=== PATIENT | female | born 1970 | race Caucasian/White ===

== ENCOUNTER 2020-03-19 08:14 | Outpatient (REF) | payer OTHER, SELFPAY | END 2020-03-19 08:15 | disposition home or self-care (01) | LOC: HO.LAB 08:14 | PROVIDERS: PCP Internal Medicine; Visit Provider Internal Medicine | DX: Z20.828 Contact with and (suspected) exposure to other viral communicable diseases (principal) | CPT/HCPCS: 87635 ==

== ENCOUNTER 2020-04-24 10:57 | Emergency (ER) | payer OTHER, SELFPAY ==
[2020-04-24 11:57] VITALS: BP 118/83; PULSE 88; RESP 18; TEMP 37.1; O2SAT 99; BMI 25.7
--- NOTE | 2020-04-24 12:00 | ECG_ITS ---
Test Reason : SOB Blood Pressure : / mmHG Vent. Rate : 085 BPM Atrial Rate : 085 BPM P-R Int : 122 ms QRS Dur : 078 ms QT Int : 406 ms P-R-T Axes : 030 -05 000 degrees QTc Int : 483 ms Normal sinus rhythm Prolonged QT Abnormal ECG When compared with ECG of 20-MAR-2017 18:57, QT has lengthened Referred By: Chio Wilcox Electronically Signed By:GOYO TO MD
--- NOTE | 2020-04-24 12:01 | XR_ITS ---
EXAMINATION: XR CHEST CLINICAL INFORMATION: SOB. COMPARISON: None TECHNIQUE: Frontal view of the chest was obtained. FINDINGS: The lungs are well-expanded with patchy density right lung base. Rest of lungs are clear. Heart size and pulmonary vascular is normal. No gross bony abnormality seen XR/XR chest 1V IMPRESSION: Patchy density right lung base question developing infiltrate.
[2020-04-24 13:25] LABS: MANUAL DIFF FLAG NO
[2020-04-24 13:28] LABS: Hematocrit 41.9 % (37-47); Hemoglobin 14.1 g/dl (12.0-16.0); Imm Gran Abs Auto 0.01 X10*3/uL (0.00-0.03); Imm Gran Pct Auto 0.3 % (0.0-0.4); Lymphocytes Absolute Auto 1.4 X10*3/uL (1.2-4.9); Lymphocytes Percent Auto 40.4 % (20-40); Mean Corpuscular HGB Conc 33.7 g/dl (31.0-35.0); Mean Corpuscular Hemoglobin 29.4 pg (27.0-33.0); Mean Corpuscular Volume 87.3 fL (80-98); Mean Platelet Volume 11.2 fL (9.4-12.3); Monocytes Absolute Auto 0.3 X10*3/uL (0.1-1.2); Monocytes Percent Auto 8.2 % (2-11); Neutrophils Absolute Auto 1.8 X10*3/uL (2.0-8.3); Neutrophils Percent Auto 51.1 % (45-73); Platelet Count 162 X10*3/uL (160-400); Red Cell Distribution Width 12.5 % (11.0-16.0); White Blood Count 3.4 X10*3/uL (4.8-10.8)
[2020-04-24 13:47] LABS: Lactate Dehydrogenase 192 U/L (122-220)
[2020-04-24 13:50] LABS: Alanine Aminotransferase 43 U/L (0-31); Albumin Level 4.5 g/dL (3.5-5.0); Alkaline Phosphatase 54 U/L (39-117); Anion Gap 13 (12-20); Aspartate Amino Transferase 35 U/L (5-31); Bilirubin Direct < 0.2 mg/dL (0.0-0.5); Bilirubin Total 0.4 mg/dL (0.0-1.0); Blood Urea Nitrogen 6 mg/dL (9-16); Calcium 8.5 mg/dL (8.4-10.2); Carbon Dioxide 21 mmol/L (22-29); Chloride 108 mmol/L (96-108); Creatinine Clr Calc Pharmacy 71.9; Estimated Glomerular Filt Rate > 60; Glucose Random 72 mg/dL (60-115); Potassium 3.4 mmol/l (3.3-5.1); Sodium 139 mmol/L (135-145); Total Protein 7.1 g/dL (6.5-8.0)
[2020-04-24 13:54] LABS: B Type Natriuretic Peptide < 10 pg/mL (<100); Troponin-I High Sensitivity < 3.5 ng/L (<3.5-17.0)
[2020-04-24 14:08] LABS: Procalcitonin 0.02 ng/mL
[2020-04-24 14:11] LABS: Ferritin 221 ng/mL (10-250)
[2020-04-24 14:14] LABS: Lactic Acid 1.1 mmol/L (0.5-2.0)
[2020-04-24 14:53] LABS: Glucose Urine UA NEG (NEG); Leukocyte Esterase Urine NEG (NEG); Nitrite Urine NEG (NEG); PH 6.5 (5.0-8.0); Urine Blood NEG (NEG); Urine Ketones >=80 MG/DL (NEG); Urine Protein TRACE MG/DL (NEG-TRACE)
[2020-04-24 14:54] LABS: Appearance Urine HAZY; Color Urine YELLOW
--- NOTE | 2020-04-24 14:58 | ED.GENADULT ---
HPI - General Adult General Chief complaint: General Medical <JOE Scott - Last Filed: 04/24/20 15:09> Stated complaint: COVID SYMPTOMS <JOE Scott - Last Filed: 04/24/20 15:09> Time Seen by Provider: 04/24/20 12:00 <JOE Scott - Last Filed: 04/24/20 15:09> Source: patient <JOE Scott - Last Filed: 04/24/20 15:09> Mode of arrival: ambulatory <JOE Scott - Last Filed: 04/24/20 15:09> History of Present Illness HPI narrative: 50-year-old female with a past medical history of anxiety, depression, asthma, GERD, hyperlipidemia, hypertension, insomnia, COVID-19 positive on Monday, presenting to ED complaining of worsening SOB, generalized fatigue/weakness, myalgias, lightheadedness, and headache. Reports subjective fever and chills. Denies chest pain, new or worsening cough, abdominal pain, diarrhea, recent travel, LE edema, sick contacts <JOE Scott - Last Filed: 04/24/20 15:09> Onset (ago): day(s) <JOE Scott - Last Filed: 04/24/20 15:09> Related Data Home medications: Home Medications Medication Instructions Recorded Confirmed baclofen 10 mg tablet 10 mg PO TID 04/09/20 04/09/20 bupropion HCl 150 mg 24 hr tablet, 150 mg PO QAM 04/09/20 04/09/20 extended release fluticasone 250 mcg-salmeterol 50 1 inh INHALATION BID ea 04/09/20 04/09/20 mcg/dose blistr powdr for inhalation meloxicam 15 mg tablet 15 mg PO DAILY 04/09/20 04/09/20 montelukast 10 mg tablet 10 mg PO DAILY 04/09/20 04/09/20 Previous Rx's Medication Instructions Recorded lisinopril 5 mg tablet 5 mg PO DAILY #30 tab 03/27/20 bupropion HCl 75 mg tablet 75 mg PO DAILY #30 tab 04/09/20 escitalopram oxalate 10 mg tablet 10 mg PO DAILY #30 tab 04/09/20 doxycycline monohydrate 100 mg PO BID 7 Days #14 cap 04/24/20 promethazine 25 mg tablet 25 mg PO Q12H PRN #60 tab 04/28/20 albuterol sulfate 90 mcg/actuation 2 puff INHALATION Q4-6H PRN 30 05/07/20 aerosol inhaler Days #8.5 g diphenhydramine HCl 50 mg capsule 50 mg PO BEDTIME PRN #30 cap 05/13/20 zolpidem 10 mg tablet 10 mg PO BEDTIME PRN 30 Days #30 05/13/20 tab famotidine 20 mg tablet 20 mg PO BID #60 tab 05/14/20 hydrocodone 5 mg-acetaminophen 325 1 tab PO TID PRN 30 Days #60 tab 05/14/20 mg tablet <JOE Scott Last Filed: 04/24/20 15:09> Allergies/adverse reactions: Allergies Allergy/AdvReac Type Severity Reaction Status Date / Time animal dander [ANIMAL HAIR] Allergy Intermediate ASTHMA, Unverified 04/09/20 10:49 HIVES lactose [Lactose] Allergy Mild DIARRHEA Unverified 04/09/20 10:49 <JOE Scott Last Filed: 04/24/20 15:09> Review of Systems Review of Systems: Constitutional: No Weight loss, +subj Fever, + Chills, + Fatigue, + Malaise ENT/Mouth:No Ear Pain, No Nasal Congestion, No sore throat, No Rhinorrheanges Cardiovascular: No Chest Pain, +SOB, +Dyspnea on Exertion, No Orthopnea, No Edema Respiratory: +chronic Cough, No Sputum, +Dyspnea Gastrointestinal: No Nausea, No Vomiting, No Diarrhea, No Constipation, No Abdominal pain Musculoskeletal: No joint pain, No Myalgias, No Joint Swelling Skin: No Skin Lesions, No rash Neuro: +genrealized weakness, No Numbness,+ lightheadedness, + Headache <JOE Scott Last Filed: 04/24/20 15:09> Yes all other systems are reviewed and are negative <JOE Scott Last Filed: 04/24/20 15:09> [facility] Past Medical History Attestation statement: The following information was validated with the patient. <JOE Scott Last Filed: 04/24/20 15:09> Medical History: Medical History (Updated 05/10/20 @ 17:41 by Carina Delarosa NP) Anxiety and depression ASCUS (atypical squamous cells of undetermined significance) on gynecologic Papanicolaou smear complicating , antepartum Asthma Asthma Cervical radiculopathy Degenerative disc disease, cervical GERD (gastroesophageal reflux disease) Hospital discharge follow-up Hospital discharge follow-up Hypercholesterolemia Hypertension Insomnia Interstitial cystitis Lumbar degenerative disc disease <JOE Scott - Last Filed: 04/24/20 15:09> Surgical History: Surgical History (Updated 04/06/20 @ 13:52 by Yola Garg [facility]) H/O nasal septoplasty History of ankle surgery History of neck surgery History of surgery History of wisdom tooth extraction S/P cervical discectomy Status post laparoscopic surgery <JOE Scott - Last Filed: 04/24/20 15:09> Family History Family History: Family History (Updated 04/09/20 @ 10:58 by Carrie Marshall MD) Father PTSD (post-traumatic stress disorder) Mother No problems noted. Maternal Grandmother Breast cancer Maternal Grandfather Myocardial infarction Maternal Uncle Past heart attack <JOE Scott - Last Filed: 04/24/20 15:09> Social History Social History: Social History (Updated 04/09/20 @ 10:58 by Carrie Marshall MD) Alcohol intake: current Smoking Status: Former smoker <JOE Scott - Last Filed: 04/24/20 15:09> Physical Exam Vital Signs: Vital Signs: Last Vital Signs Temp 98.8 F 04/24/20 11:57 Pulse 88 04/24/20 11:57 Resp 18 04/24/20 11:57 BP 118/83 04/24/20 11:57 Pulse Ox 99 04/24/20 11:57 Body Mass Index 25.7 <JOE Scott - Last Filed: 04/24/20 15:09> Vital Signs: Last Vital Signs Temp 98.8 F 04/24/20 11:57 Pulse 88 04/24/20 11:57 Resp 18 04/24/20 11:57 BP 118/83 04/24/20 11:57 Pulse Ox 99 04/24/20 11:57 Body Mass Index 25.7 <Magnus Mitchell MD - Last Filed: 05/15/20 09:33> Const: General: cooperative and healthy appearing <Chio Brenden [facility] Last Filed: 04/24/20 15:09> Orientation/consciousness: patient oriented x3 <Chio Brenden [facility] Last Filed: 04/24/20 15:09> Limitations: no limitations <Chio Brenden [facility] Last Filed: 04/24/20 15:09> HENMT: Head: Yes normal to inspection <Chio Wilcox [facility] Last Filed: 04/24/20 15:09> Ears: hearing grossly normal bilaterally <Chio Brenden [facility] Last Filed: 04/24/20 15:09> General nose exam: Normal external nose present <Chio Wilcox [place] - Last Filed: 04/24/20 15:09> Face and sinus: Yes normal facial exam <Chio Brenden [facility] Last Filed: 04/24/20 15:09> Eyes: General: appearance normal, both eyes and all related structures <Chio Wilcox [facility] Last Filed: 04/24/20 15:09> EOM: EOMs intact bilaterally <Chio Brenden [facility] Last Filed: 04/24/20 15:09> Neck: Neck: Yes normal visual inspection and Yes no meningeal signs <Chio Brenden [facility] Last Filed: 04/24/20 15:09> Resp: Effort & Inspection: normal respiratory effort <Chio Brenden [facility] Last Filed: 04/24/20 15:09> Auscultation: clear to auscultation bilaterally, no crackles and no wheezes <Chio Wilcox [facility] Last Filed: 04/24/20 15:09> Cardio: Rate: regular rate <Chio Brenden [facility] Last Filed: 04/24/20 15:09> Heart sounds: S1 normal heart sound present and S2 normal heart sound present <Chio Wilcox [facility] Last Filed: 04/24/20 15:09> GI: Inspection: Yes normal to inspection <Chio Wilcox [facility] Last Filed: 04/24/20 15:09> Palpation (GI): Soft to palpation, nontender, no guarding and not rigid <Chio Wilcox [place] - Last Filed: 04/24/20 15:09> Skin: Rashes: no rashes <JOE Scott - Last Filed: 04/24/20 15:09> Wounds: no wounds <JOE Scott - Last Filed: 04/24/20 15:09> Neuro: General: patient oriented x3 and no meningeal signs <JOE Scott - Last Filed: 04/24/20 15:09> Gait exam (Neuro): Normal gait present <JOE Scott - Last Filed: 04/24/20 15:09> Extrem: Other: No LE edema or calf tenderness <JOE Scott - Last Filed: 04/24/20 15:09> General: Yes normal to inspection <JOE Scott - Last Filed: 04/24/20 15:09> Course Course Course Narrative: -1506-leukopenia 3.4, lactic acid 1.1, AST/ALT slightly elevated, troponin and BNP WNL -UA with 80 ketones otherwise negative -CXR showing patchy density right lung base question developing infiltrate > will discharge patient with p.o. antibiotics, does not meet sepsis criteria or require admission at this time <JOE Scott - Last Filed: 04/24/20 15:09> I have reviewed the chart <Magnus Mitchell MD - Last Filed: 05/15/20 09:33> Medical Decision Making [facility] Narrative Medical decision making narrative: 50-year-old female with a past medical history of anxiety, depression, asthma, GERD, hyperlipidemia, hypertension, insomnia, COVID-19 positive on Monday, presenting to ED complaining of worsening SOB, generalized fatigue/weakness, myalgias, lightheadedness, and headache. On exam VSS, NAD/well-appearing, lungs CTA, abdomen soft/nontender, no LE edema. Likely the COVID-19 related symptoms. Rule out viral pneumonia and metabolic abnormalities. Low concern for bacterial infection/ACS or PE Plan: EKG, labs, CXR <JOE Scott - Last Filed: 04/24/20 15:09> Lab Data Result diagrams: : 04/24/20 13:11 04/24/20 13:11 <JOE Scott - Last Filed: 04/24/20 15:09> Labs: Lab Results 1204/24/20 04/24/20 Range/Units 13:11 13:11 13:11 WBC 3.4 L (4.8-10.8) X10*3/uL RBC 4.80 (4.20-5.50) X10*6/uL Hgb 14.1 (12.0-16.0) g/dl Hct 41.9 (37-47) % MCV 87.3 (80-98) fL MCH 29.4 (27.0-33.0) pg MCHC 33.7 (31.0-35.0) g/dl RDW 12.5 (11.0-16.0) % Plt Count 162 (160-400) X10*3/uL MPV 11.2 (9.4-12.3) fL Immature Gran % (Auto) 0.3 (0.0-0.4) % Neut % (Auto) 51.1 (45-73) % Lymph % (Auto) 40.4 H (20-40) % [place] % (Auto) 8.2 (2-11) % Eos % (Auto) 0.0 (0-4) % Baso % (Auto) 0.0 (0-2) % Lymph # (Auto) 1.4 (1.2-4.9) X10*3/uL [place] # (Auto) 0.3 (0.1-1.2) X10*3/uL Eos # (Auto) 0.0 (0.0-0.4) X10*3/uL Baso # (Auto) 0.0 (0.0-0.2) X10*3/uL Abs Immat Gran (auto) 0.01 (0.00-0.03) X10*3/uL Absolute Neuts (auto) 1.8 L (2.0-8.3) X10*3/uL Absolute Nucleated RBC 0.000 (0.0-0.012) X10*3/uL Nucleated RBC % (auto) 0.0 (0.0-0.2) /100WBC Hold Blue Top SEE NOTE Sodium 139 (135-145) mmol/L Potassium 3.4 (3.3-5.1) mmol/l Chloride 108 (96-108) mmol/L Carbon Dioxide 21 L (22-29) mmol/L Anion Gap 13 (12-20) BUN 6 L (9-16) mg/dL Creatinine 0.92 (0.5-1.4) mg/dL Estim Creat Clear Calc 71.9 Estimated GFR > 60 Random Glucose 72 (60-115) mg/dL Lactic Acid (0.5-2.0) mmol/L Calcium 8.5 (8.4-10.2) mg/dL Magnesium 2.0 (1.6-2.6) mg/dL Ferritin (10-250) ng/mL Total Bilirubin 0.4 (0.0-1.0) mg/dL Direct Bilirubin < 0.2 (0.0-0.5) mg/dL AST 35 H (5-31) U/L ALT 43 H (0-31) U/L Alkaline Phosphatase 54 (39-117) U/L Lactate Dehydrogenase (122-220) U/L Troponin I High Sens (<3.5-17.0) ng/L B-Natriuretic Peptide (<100) pg/mL Total Protein 7.1 (6.5-8.0) g/dL Albumin 4.5 (3.5-5.0) g/dL Procalcitonin ng/mL Urine Color Urine Appearance Urine pH (5.0-8.0) Ur Specific [place] (1.005-1.025) Urine Protein (NEG-TRACE) MG/DL Urine Glucose (UA) (NEG) MG/DL Urine Ketones (NEG) MG/DL Urine Blood (NEG) Urine Nitrite (NEG) Ur Leukocyte Esterase (NEG) 04/24/20 04/24/20 04/24/20 Range/Units 13:11 13:11 13:11 WBC (4.8-10.8) X10*3/uL RBC (4.20-5.50) X10*6/uL Hgb (12.0-16.0) g/dl Hct (37-47) % MCV (80-98) fL MCH (27.0-33.0) pg MCHC (31.0-35.0) g/dl RDW (11.0-16.0) % Plt Count (160-400) X10*3/uL MPV (9.4-12.3) fL Immature Gran % (Auto) (0.0-0.4) % Neut % (Auto) (45-73) % Lymph % (Auto) (20-40) % [place] % (Auto) (2-11) % Eos % (Auto) (0-4) % Baso % (Auto) (0-2) % Lymph # (Auto) (1.2-4.9) X10*3/uL [place] # (Auto) (0.1-1.2) X10*3/uL Eos # (Auto) (0.0-0.4) X10*3/uL Baso # (Auto) (0.0-0.2) X10*3/uL Abs Immat Gran (auto) (0.00-0.03) X10*3/uL Absolute Neuts (auto) (2.0-8.3) X10*3/uL Absolute Nucleated RBC (0.0-0.012) X10*3/uL Nucleated RBC % (auto) (0.0-0.2) /100WBC Hold Blue Top Sodium (135-145) mmol/L Potassium (3.3-5.1) mmol/l Chloride (96-108) mmol/L Carbon Dioxide (22-29) mmol/L Anion Gap (12-20) BUN (9-16) mg/dL Creatinine (0.5-1.4) mg/dL Estim Creat Clear Calc Estimated GFR Random Glucose (60-115) mg/dL Lactic Acid (0.5-2.0) mmol/L Calcium (8.4-10.2) mg/dL Magnesium (1.6-2.6) mg/dL Ferritin 221 (10-250) ng/mL Total Bilirubin (0.0-1.0) mg/dL Direct Bilirubin (0.0-0.5) mg/dL AST (5-31) U/L ALT (0-31) U/L Alkaline Phosphatase (39-117) U/L Lactate Dehydrogenase 192 (122-220) U/L Troponin I High Sens < 3.5 (<3.5-17.0) ng/L B-Natriuretic Peptide < 10 (<100) pg/mL Total Protein (6.5-8.0) g/dL Albumin (3.5-5.0) g/dL Procalcitonin 0.02 ng/mL Urine Color Urine Appearance Urine pH (5.0-8.0) Ur Specific [place] (1.005-1.025) Urine Protein (NEG-TRACE) MG/DL Urine Glucose (UA) (NEG) MG/DL Urine Ketones (NEG) MG/DL Urine Blood (NEG) Urine Nitrite (NEG) Ur Leukocyte Esterase (NEG) 04/24/20 04/24/20 Range/Units 13:23 14:39 WBC (4.8-10.8) X10*3/uL RBC (4.20-5.50) X10*6/uL Hgb (12.0-16.0) g/dl Hct (37-47) % MCV (80-98) fL MCH (27.0-33.0) pg MCHC (31.0-35.0) g/dl RDW (11.0-16.0) % Plt Count (160-400) X10*3/uL MPV (9.4-12.3) fL Immature Gran % (Auto) (0.0-0.4) % Neut % (Auto) (45-73) % Lymph % (Auto) (20-40) % [place] % (Auto) (2-11) % Eos % (Auto) (0-4) % Baso % (Auto) (0-2) % Lymph # (Auto) (1.2-4.9) X10*3/uL [place] # (Auto) (0.1-1.2) X10*3/uL Eos # (Auto) (0.0-0.4) X10*3/uL Baso # (Auto) (0.0-0.2) X10*3/uL Abs Immat Gran (auto) (0.00-0.03) X10*3/uL Absolute Neuts (auto) (2.0-8.3) X10*3/uL Absolute Nucleated RBC (0.0-0.012) X10*3/uL Nucleated RBC % (auto) (0.0-0.2) /100WBC Hold Blue Top Sodium (135-145) mmol/L Potassium (3.3-5.1) mmol/l Chloride (96-108) mmol/L Carbon Dioxide (22-29) mmol/L Anion Gap (12-20) BUN (9-16) mg/dL Creatinine (0.5-1.4) mg/dL Estim Creat Clear Calc Estimated GFR Random Glucose (60-115) mg/dL Lactic Acid 1.1 (0.5-2.0) mmol/L Calcium (8.4-10.2) mg/dL Magnesium (1.6-2.6) mg/dL Ferritin (10-250) ng/mL Total Bilirubin (0.0-1.0) mg/dL Direct Bilirubin (0.0-0.5) mg/dL AST (5-31) U/L ALT (0-31) U/L Alkaline Phosphatase (39-117) U/L Lactate Dehydrogenase (122-220) U/L Troponin I High Sens (<3.5-17.0) ng/L B-Natriuretic Peptide (<100) pg/mL Total Protein (6.5-8.0) g/dL Albumin (3.5-5.0) g/dL Procalcitonin ng/mL Urine Color YELLOW Urine Appearance HAZY Urine pH 6.5 (5.0-8.0) Ur Specific [place] 1.020 (1.005-1.025) Urine Protein TRACE (NEG-TRACE) MG/DL Urine Glucose (UA) NEG (NEG) MG/DL Urine Ketones >=80 (NEG) MG/DL Urine Blood NEG (NEG) Urine Nitrite NEG (NEG) Ur Leukocyte Esterase NEG (NEG) <JOE Scott - Last Filed: 04/24/20 15:09> Lab Results 04/24/20 04/24/20 04/24/20 Range/Units 13:11 13:11 13:11 WBC 3.4 L (4.8-10.8) X10*3/uL RBC 4.80 (4.20-5.50) X10*6/uL Hgb 14.1 (12.0-16.0) g/dl Hct 41.9 (37-47) % MCV 87.3 (80-98) fL MCH 29.4 (27.0-33.0) pg MCHC 33.7 (31.0-35.0) g/dl RDW 12.5 (11.0-16.0) % Plt Count 162 (160-400) X10*3/uL MPV 11.2 (9.4-12.3) fL Immature Gran % (Auto) 0.3 (0.0-0.4) % Neut % (Auto) 51.1 (45-73) % Lymph % (Auto) 40.4 H (20-40) % [place] % (Auto) 8.2 (2-11) % Eos % (Auto) 0.0 (0-4) % Baso % (Auto) 0.0 (0-2) % Lymph # (Auto) 1.4 (1.2-4.9) X10*3/uL [place] # (Auto) 0.3 (0.1-1.2) X10*3/uL Eos # (Auto) 0.0 (0.0-0.4) X10*3/uL Baso # (Auto) 0.0 (0.0-0.2) X10*3/uL Abs Immat Gran (auto) 0.01 (0.00-0.03) X10*3/uL Absolute Neuts (auto) 1.8 L (2.0-8.3) X10*3/uL Absolute Nucleated RBC 0.000 (0.0-0.012) X10*3/uL Nucleated RBC % (auto) 0.0 (0.0-0.2) /100WBC Hold Blue Top SEE NOTE Sodium 139 (135-145) mmol/L Potassium 3.4 (3.3-5.1) mmol/l Chloride 108 (96-108) mmol/L Carbon Dioxide 21 L (22-29) mmol/L Anion Gap 13 (12-20) BUN 6 L (9-16) mg/dL Creatinine 0.92 (0.5-1.4) mg/dL Estim Creat Clear Calc 71.9 Estimated GFR > 60 Random Glucose 72 (60-115) mg/dL Lactic Acid (0.5-2.0) mmol/L Calcium 8.5 (8.4-10.2) mg/dL Magnesium 2.0 (1.6-2.6) mg/dL Ferritin (10-250) ng/mL Total Bilirubin 0.4 (0.0-1.0) mg/dL Direct Bilirubin < 0.2 (0.0-0.5) mg/dL AST 35 H (5-31) U/L ALT 43 H (0-31) U/L Alkaline Phosphatase 54 (39-117) U/L Lactate Dehydrogenase (122-220) U/L Troponin I High Sens (<3.5-17.0) ng/L B-Natriuretic Peptide (<100) pg/mL Total Protein 7.1 (6.5-8.0) g/dL Albumin 4.5 (3.5-5.0) g/dL Procalcitonin ng/mL Urine Color Urine Appearance Urine pH (5.0-8.0) Ur Specific [place] (1.005-1.025) Urine Protein (NEG-TRACE) MG/DL Urine Glucose (UA) (NEG) MG/DL Urine Ketones (NEG) MG/DL Urine Blood (NEG) Urine Nitrite (NEG) Ur Leukocyte Esterase (NEG) 04/24/20 04/24/20 04/24/20 Range/Units 13:11 13:11 13:11 WBC (4.8-10.8) X10*3/uL RBC (4.20-5.50) X10*6/uL Hgb (12.0-16.0) g/dl Hct (37-47) % MCV (80-98) fL MCH (27.0-33.0) pg MCHC (31.0-35.0) g/dl RDW (11.0-16.0) % Plt Count (160-400) X10*3/uL MPV (9.4-12.3) fL Immature Gran % (Auto) (0.0-0.4) % Neut % (Auto) (45-73) % Lymph % (Auto) (20-40) % [place] % (Auto) (2-11) % Eos % (Auto) (0-4) % Baso % (Auto) (0-2) % Lymph # (Auto) (1.2-4.9) X10*3/uL [place] # (Auto) (0.1-1.2) X10*3/uL Eos # (Auto) (0.0-0.4) X10*3/uL Baso # (Auto) (0.0-0.2) X10*3/uL Abs Immat Gran (auto) (0.00-0.03) X10*3/uL Absolute Neuts (auto) (2.0-8.3) X10*3/uL Absolute Nucleated RBC (0.0-0.012) X10*3/uL Nucleated RBC % (auto) (0.0-0.2) /100WBC Hold Blue Top Sodium (135-145) mmol/L Potassium (3.3-5.1) mmol/l Chloride (96-108) mmol/L Carbon Dioxide (22-29) mmol/L Anion Gap (12-20) BUN (9-16) mg/dL Creatinine (0.5-1.4) mg/dL Estim Creat Clear Calc Estimated GFR Random Glucose (60-115) mg/dL Lactic Acid (0.5-2.0) mmol/L Calcium (8.4-10.2) mg/dL Magnesium (1.6-2.6) mg/dL Ferritin 221 (10-250) ng/mL Total Bilirubin (0.0-1.0) mg/dL Direct Bilirubin (0.0-0.5) mg/dL AST (5-31) U/L ALT (0-31) U/L Alkaline Phosphatase (39-117) U/L Lactate Dehydrogenase 192 (122-220) U/L Troponin I High Sens < 3.5 (<3.5-17.0) ng/L B-Natriuretic Peptide < 10 (<100) pg/mL Total Protein (6.5-8.0) g/dL Albumin (3.5-5.0) g/dL Procalcitonin 0.02 ng/mL Urine Color Urine Appearance Urine pH (5.0-8.0) Ur Specific [place] (1.005-1.025) Urine Protein (NEG-TRACE) MG/DL Urine Glucose (UA) (NEG) MG/DL Urine Ketones (NEG) MG/DL Urine Blood (NEG) Urine Nitrite (NEG) Ur Leukocyte Esterase (NEG) 04/24/20 04/24/20 Range/Units 13:23 14:39 WBC (4.8-10.8) X10*3/uL RBC (4.20-5.50) X10*6/uL Hgb (12.0-16.0) g/dl Hct (37-47) % MCV (80-98) fL MCH (27.0-33.0) pg MCHC (31.0-35.0) g/dl RDW (11.0-16.0) % Plt Count (160-400) X10*3/uL MPV (9.4-12.3) fL Immature Gran % (Auto) (0.0-0.4) % Neut % (Auto) (45-73) % Lymph % (Auto) (20-40) % [place] % (Auto) (2-11) % Eos % (Auto) (0-4) % Baso % (Auto) (0-2) % Lymph # (Auto) (1.2-4.9) X10*3/uL [place] # (Auto) (0.1-1.2) X10*3/uL Eos # (Auto) (0.0-0.4) X10*3/uL Baso # (Auto) (0.0-0.2) X10*3/uL Abs Immat Gran (auto) (0.00-0.03) X10*3/uL Absolute Neuts (auto) (2.0-8.3) X10*3/uL Absolute Nucleated RBC (0.0-0.012) X10*3/uL Nucleated RBC % (auto) (0.0-0.2) /100WBC Hold Blue Top Sodium (135-145) mmol/L Potassium (3.3-5.1) mmol/l Chloride (96-108) mmol/L Carbon Dioxide (22-29) mmol/L Anion Gap (12-20) BUN (9-16) mg/dL Creatinine (0.5-1.4) mg/dL Estim Creat Clear Calc Estimated GFR Random Glucose (60-115) mg/dL Lactic Acid 1.1 (0.5-2.0) mmol/L Calcium (8.4-10.2) mg/dL Magnesium (1.6-2.6) mg/dL Ferritin (10-250) ng/mL Total Bilirubin (0.0-1.0) mg/dL Direct Bilirubin (0.0-0.5) mg/dL AST (5-31) U/L ALT (0-31) U/L Alkaline Phosphatase (39-117) U/L Lactate Dehydrogenase (122-220) U/L Troponin I High Sens (<3.5-17.0) ng/L B-Natriuretic Peptide (<100) pg/mL Total Protein (6.5-8.0) g/dL Albumin (3.5-5.0) g/dL Procalcitonin ng/mL Urine Color YELLOW Urine Appearance HAZY Urine pH 6.5 (5.0-8.0) Ur Specific [place] 1.020 (1.005-1.025) Urine Protein TRACE (NEG-TRACE) MG/DL Urine Glucose (UA) NEG (NEG) MG/DL Urine Ketones >=80 (NEG) MG/DL Urine Blood NEG (NEG) Urine Nitrite NEG (NEG) Ur Leukocyte Esterase NEG (NEG) <Magnus Mitchell MD - Last Filed: 05/15/20 09:33> Discharge Plan Discharge Clinical Impression: Pneumonia due to COVID-19 virus <JOE Scott - Last Filed: 04/24/20 15:09> Patient Disposition: Home, Self-Care <JOE Scott - Last Filed: 04/24/20 15:09> Instructions: Viral Pneumonia (ED) <JOE Scott - Last Filed: 04/24/20 15:09> Additional Instructions: Your blood work was reassuring Today in the ED Your x-ray showed beginning viral pneumonia in your right lower lobe Doxycycline as antibiotic, take as prescribed Continue using her rescue inhaler at home and neb machine Call your doctor for follow-up If her symptoms persist or worsen, you develop constant worsening shortness of breath, chest pain for fever unresolved medications return to the ED CDC Guidelines for home isolation: - Stay away from others - WEAR A MASK if you are sick AND STAY HOME - Cover your mouth and nose with a tissue when you cough or sneeze. Dispose of tissues in a lined trash can and wash your hands immediately with soap and water for at least 20 seconds. If soap and water are not available, clean hands with alcohol-based hand insurance coordinator that contains at least 60% alcohol. - Clean your hands often with soap and water for at least 20 seconds - Avoid touching your eyes, nose and mouth with unwashed hands - Do not share dishes, drinking glasses, cups, eating utensils, towels, or bedding with other people in your home. After using these items, wash them thoroughly with soap and water or put in the oncology account specialist. - Clean high-touch surfaces in your isolation area ( sick room and bathroom) every day; let a caregiver clean and disinfect high-touch surfaces in other areas of the home. Clean the area or item with soap and water or another detergent if it is dirty. Then, use a household disinfectant. - Limit contact with pets and animals: If you must care for a pet, wash your hands before and after interacting with them) <JOE Scott - Last Filed: 04/24/20 15:09> Prescriptions: New doxycycline monohydrate 100 mg capsule 100 mg PO BID 7 Days Qty: 14 RF: 0 No Action lisinopril 5 mg tablet 5 mg PO DAILY Qty: 30 RF: 5 promethazine 25 mg tablet 25 mg PO Q12H PRN (Reason: nausea and vomiting) Qty: 60 RF: 2 zolpidem 10 mg tablet 10 mg PO BEDTIME PRN (Reason: insomnia) 30 Days Qty: 30 RF: 2 diphenhydramine HCl [Banophen] 50 mg capsule 50 mg PO BEDTIME PRN (Reason: allergy symptoms) Qty: 30 RF: 5 hydrocodone-acetaminophen 5-325 mg tablet 1 tab PO TID PRN (Reason: pain) 30 Days Qty: 60 RF: 0 famotidine 20 mg tablet 20 mg PO BID Qty: 60 RF: 3 albuterol sulfate [ProAir HFA] 90 mcg/actuation HFA aerosol inhaler 2 puff inhalation Q4-6H PRN (Reason: shortness of breath or wheezing) 30 Days Qty: 8.5 RF: 0 baclofen 10 mg tablet 10 mg PO TID RF: 0 meloxicam 15 mg tablet 15 mg PO DAILY RF: 0 fluticasone propion-salmeterol [Wixela Inhub] 250-50 mcg/dose blister with device 1 inh inhalation BID RF: 0 montelukast 10 mg tablet 10 mg PO DAILY RF: 0 bupropion HCl 150 mg tablet extended release 24 hr 150 mg PO QAM RF: 0 bupropion HCl 75 mg tablet 75 mg PO DAILY Qty: 30 RF: 2 escitalopram oxalate [Lexapro] 10 mg tablet 10 mg PO DAILY Qty: 30 RF: 2 <JOE Scott - Last Filed: 04/24/20 15:09> Referrals: Po,Carrie Conner MD [Primary Care Provider] - 3 days <JOE Scott - Last Filed: 04/24/20 15:09> Interventions: ED Discharge Assessment Last Done: 04/24/20 15:54 <JOE Scott - Last Filed: 04/24/20 15:09> Discharge Date/Time: 04/24/20 15:55 <JOE Scott - Last Filed: 04/24/20 15:09>
== END 2020-04-24 15:55 | disposition home or self-care (01) ==
PROVIDERS: Physician Assistant; Emergency Provider Emergency Medicine; PCP Internal Medicine
DX: M79.10 Myalgia, unspecified site (principal); R51.9 Headache, unspecified; R50.9 Fever, unspecified; I10 Essential (primary) hypertension; F41.9 Anxiety disorder, unspecified; Z20.828 Contact with and (suspected) exposure to other viral communicable diseases; Z79.899 Other long term (current) drug therapy
CPT/HCPCS: 36415; 71045; 80048; 80076; 81003; 82728; 83605; 83615; 83735; 83880; 84145; 84484; 85025; 87040; 93005; 99283

== ENCOUNTER 2020-06-09 08:11 | Outpatient (REF) | payer OTHER, SELFPAY ==
[2020-06-09 09:08] LABS: MANUAL DIFF FLAG NO
[2020-06-09 09:16] LABS: Basophils Percent Auto 0.5 % (0-2); Eosinophils Absolute Auto 0.2 X10*3/uL (0.0-0.4); Eosinophils Percent Auto 2.4 % (0-4); Hematocrit 37.1 % (37-47); Imm Gran Abs Auto 0.01 X10*3/uL (0.00-0.03); Imm Gran Pct Auto 0.2 % (0.0-0.4); Lymphocytes Absolute Auto 2.4 X10*3/uL (1.2-4.9); Lymphocytes Percent Auto 38.7 % (20-40); Mean Corpuscular HGB Conc 32.3 g/dl (31.0-35.0); Mean Corpuscular Hemoglobin 28.5 pg (27.0-33.0); Mean Corpuscular Volume 88.1 fL (80-98); Mean Platelet Volume 11.9 fL (9.4-12.3); Monocytes Absolute Auto 0.5 X10*3/uL (0.1-1.2); Monocytes Percent Auto 8.1 % (2-11); Neutrophils Absolute Auto 3.1 X10*3/uL (2.0-8.3); Neutrophils Percent Auto 50.1 % (45-73); Platelet Count 248 X10*3/uL (160-400); Red Blood Count 4.21 X10*6/uL (4.20-5.50); Red Cell Distribution Width 13.4 % (11.0-16.0); White Blood Count 6.3 X10*3/uL (4.8-10.8)
[2020-06-09 09:42] LABS: Alanine Aminotransferase 50 U/L (0-31); Albumin Level 4.4 g/dL (3.5-5.0); Alkaline Phosphatase 50 U/L (39-117); Anion Gap 12 (12-20); Aspartate Amino Transferase 25 U/L (5-31); Bilirubin Total 0.2 mg/dL (0.0-1.0); Blood Urea Nitrogen 10 mg/dL (9-16); Calcium 8.8 mg/dL (8.4-10.2); Carbon Dioxide 22 mmol/L (22-29); Chloride 111 mmol/L (96-108); Cholesterol 186 mg/dL; Estimated Glomerular Filt Rate > 60; Glucose Random 85 mg/dL (60-115); HDL Cholesterol 54 mg/dL; LDL Cholesterol Calculated 124 mg/dl; Potassium 3.9 mmol/l (3.3-5.1); Sodium 141 mmol/L (135-145); Total Protein 6.5 g/dL (6.5-8.0); Triglycerides 44 mg/dL
[2020-06-09 10:03] LABS: Free T4 (Free Thyroxine) 0.81 ng/dL (0.71-1.85); Thyroid Stimulating Hormone 2.52 uIU/mL (0.32-4.0)
[2020-06-09 10:21] LABS: Folate 10.8 ng/mL (> or = 4.0); Vitamin B12 529 pg/mL (200-900)
[2020-06-14 13:57] LABS: Vitamin D 25-OH, D2 <4 ng/mL; Vitamin D 25-OH, D3 42 ng/mL; Vitamin D 25-OH, Total 42 ng/mL (30-100)
== END 2020-06-09 08:12 | disposition home or self-care (01) ==
LOC: HO.LAB 08:11
PROVIDERS: Visit Provider Internal Medicine
DX: E78.00 Pure hypercholesterolemia, unspecified (principal); I10 Essential (primary) hypertension; J45.909 Unspecified asthma, uncomplicated; Z79.899 Other long term (current) drug therapy
CPT/HCPCS: 36415; 80053; 80061; 82306; 82607; 82746; 84439; 84443; 85025

== ENCOUNTER 2020-07-01 08:18 | Outpatient (REF) | payer OTHER, SELFPAY ==
--- NOTE | ~2020-07-01 | MM_ITS ---
EXAMINATION: MM SCREENING DIGITAL BREAST TOMOSYNTHESIS, BILATERAL CLINICAL INFORMATION: Screening. Asymptomatic. The lifetime risk of breast cancer based on the Tyrer-Cuzick Model is 13.6%. COMPARISON: Mammography: April 04, 2018 and studies dating back to February 10, 2010 TECHNIQUE: Digital breast tomosynthesis is performed in both the craniocaudal and mediolateral oblique views along with computer-aided detection (CAD). Synthesized 2D images are generated from the tomosynthesis. Bilateral exaggerated craniocaudal views also performed. FINDINGS: The breasts are heterogeneously dense, which may obscure small masses (ACR BI-RADS breast composition Category c). There are no significant masses, abnormal calcifications, or other abnormalities. Bilateral intramammary lymph nodes present. MM/MM tomosynthesis screening BI IMPRESSION: There are no significant changes from prior study. ASSESSMENT: BI-RADS 1: Negative RECOMMENDATION: Routine annual mammography screening. This patient's information was entered into a reminder system with a target due date for their next mammogram.
--- NOTE | ~2020-07-01 | XR_ITS ---
EXAMINATION: XR CHEST CLINICAL INFORMATION: Covid infection COMPARISON: Previous chest x-ray April 2020 and images of the lower chest on previous CT of the abdomen and pelvis July 2013 TECHNIQUE: 2 views of the chest were obtained. FINDINGS: The cardiac and mediastinal contours are stable. There are increased lung markings along the right heart border. This is similar to April 2020 exam. This may be related to pectus deformity of the chest. The lungs are otherwise clear. There is no pleural effusion or pneumothorax. There are degenerative changes of the spine. There is evidence of previous surgery to the of the cervical spine. XR/XR chest 2V IMPRESSION: Stable increased markings are adjacent to the right heart border on the PA view. This may be related to a pectus deformity.
== END 2020-07-01 08:19 | disposition home or self-care (01) ==
LOC: HO.LAB 08:18
PROVIDERS: PCP Internal Medicine; Visit Provider Internal Medicine
DX: Z12.31 Encounter for screening mammogram for malignant neoplasm of breast (principal); J12.89 Other viral pneumonia; U07.1 COVID-19
CPT/HCPCS: 71046; 77063; 77067

== ENCOUNTER 2020-08-20 15:14 | Outpatient (REF) | payer OTHER, SELFPAY | END 2020-08-20 15:15 | disposition home or self-care (01) | LOC: HO.LAB 15:14 | PROVIDERS: Visit Provider Nurse Practitioner Family | DX: Z20.822 Contact with and (suspected) exposure to COVID-19 (principal); J01.90 Acute sinusitis, unspecified | CPT/HCPCS: U0003; U0005 ==

== ENCOUNTER → 2021-01-26 11:31 | Outpatient (BNVA) | payer OTHER, SELFPAY | PROVIDERS: PCP Internal Medicine | DX: N30.10 Interstitial cystitis (chronic) without hematuria (principal) | CPT/HCPCS: 99212 ==

== ENCOUNTER 2021-02-22 11:59 | Day surgery (SDC) | payer OTHER, SELFPAY ==
[2021-02-17 10:24] VITALS: BMI 25.7
[2021-02-22 13:11] VITALS: BP 131/71; PULSE 79; RESP 16; TEMP 37.1; O2SAT 100
[2021-02-22] MEDS: Lactated Ringers 1,000 ML 100 ML IVCONT (13:25)
[2021-02-22] MEDS: Scopolamine 1.5 MG PATCH.TD.3 EAR-BEHIND (13:47)
--- NOTE | 2021-02-22 14:37 | MHC.SHP ---
Pre-Procedural Eval Section A Date of Service: 02/22/21 Section B Chief Complaint: interstitial cystitis Details of Present Illness: Plan for hydrodistention. Relevant Family History (Specify if Yes): No Relevant Social History: None Present Medications: see Short Stay Collaborative assessment Medical History: Significant History History of Previous Operations: Relevant previous surgery/procedure and date(s) Allergies: Allergies Allergy/AdvReac Type Severity Reaction Status Date / Time animal dander [ANIMAL HAIR] Allergy Intermediate ASTHMA, Verified 02/08/21 17:50 HIVES lactose [Lactose] Allergy Mild DIARRHEA Verified 02/08/21 17:50 Review of Systems Sugical H&P ROS: Negative: Constitution, Cardiovascular, Respiratory, Neurological, Psychiatric, Hem-Onc, Allergic/Immunologic, Gastrointestinal, Genitourinary, Musculoskeletal, Integumentary, Endocrine and Eyes/Ears/Nose/Throat Exam Surgical H&P Exam: Normal: HEENT, Normal: Heart, Normal: Lungs, Normal: Extremities, Normal: Abdomen, Normal: Skin and Normal: Neurological Plan Diagnosis/Plan: Unchanged (Has had previous hydro distentions. Plan for hydrodistention.) I have reviewed the history and physical and performed a pertinent physical examination on my patient. No changes have occurred unless specified.
[2021-02-22] MEDS: levoFLOXacin 500 MG TABLET PO (14:43)
--- NOTE | 2021-02-22 15:24 | W.PM.OPN ---
Operative Note Operative Note Date of Service: 02/22/21 Narrative: PreOperative Diagnosis: Interstitial cystitis with pelvic pain Post Operative Diagnosis: Interstitial cystitis with pelvic pain Procedure: Hydrodistention Surgeon: Dr Fracisco Dhillon Anesthesia: General Indications for procedure: Has had procedure 3 times in but not in 2020. Procedure: After informed consent was verified the patient was brought to the operating room and placed in a supine position. Anesthesia was administered per protocol. The patient was placed in a modified dorsal lithotomy position and prepped and draped in sterile fashion. Safety pause time-out was observed. Antibiotics being given. A 22 Nigerian cystoscope was used to empty the bladder. A mixture of bupivacaine lidocaine gel 20 cc was instilled into the bladder and allowed to sit for 2-3 minutes. A belladonna and opiate rectal suppository was placed. Hydrodistention of the bladder was performed. The bladder was filled and allowed to sit for 2 minutes. Filling was from a height of 1 m. On the 1st fill there was 900cc within the bladder. Cystoscopy revealed glomerulations consistent with interstitial cystitis. Second filling of the bladder was performed in similar fashion. Volume was approximately 1100 cc. Terminal hematuria noted. The the bladder was emptied. The patient tolerated procedure well was extubated in operating room transferred in stable condition to the recovery area. Appropriate postprocedure pain medication was provided. Pathology: Drains: None
[2021-02-22 15:29] VITALS: BP 109/65; PULSE 87; RESP 14; TEMP 36.1; O2SAT 100
[2021-02-22 15:34] VITALS: BP 120/66; PULSE 83; RESP 18; O2SAT 98
[2021-02-22 15:39] VITALS: BP 130/76; PULSE 89; RESP 18; O2SAT 100
[2021-02-22 15:44] VITALS: BP 138/78; PULSE 88; RESP 18; O2SAT 100
[2021-02-22 16:00] VITALS: BP 122/87; PULSE 83; RESP 18; TEMP 36.2; O2SAT 99
[2021-02-22] MEDS: Phenazopyridine HCL 100 MG TABLET PO (16:31)
[2021-02-22] MEDS: oxyCODONE HCl Immed Release 5 MG TABLET PO (16:32)
== END 2021-02-22 16:38 | disposition home or self-care (01) ==
PROVIDERS: PCP Internal Medicine; Visit Provider Urology
PROC: 0T7B7ZZ Dilation of Bladder, Via Natural or Artificial Opening (ICD-10-PCS; CPT 52260; principal; 2021-02-22 13:50)
DX: N30.10 Interstitial cystitis (chronic) without hematuria (principal); R10.2 Pelvic and perineal pain
CPT/HCPCS: 52260; J2250; J2405; J3010

== ENCOUNTER 2021-04-20 16:36 | Outpatient (REF) | payer OTHER, SELFPAY ==
[2021-04-20 17:17] LABS: Influenza A PCR NEGATIVE (Negative); Influenza B PCR NEGATIVE (Negative); Resp Syncy Virus RNA Qual PCR NEGATIVE (Negative); SARS COV2 PCR INHOUSE NEGATIVE (Negative)
== END 2021-04-20 16:37 | disposition home or self-care (01) ==
LOC: HO.LNP 16:36
PROVIDERS: Visit Provider Internal Medicine
DX: Z20.822 Contact with and (suspected) exposure to COVID-19 (principal); R43.9 Unspecified disturbances of smell and taste
CPT/HCPCS: 0241U

== ENCOUNTER → 2021-07-29 15:27 | Outpatient (BNVA) | payer OTHER, SELFPAY | PROVIDERS: PCP Nurse Practitioner Family | DX: N30.10 Interstitial cystitis (chronic) without hematuria (principal) | CPT/HCPCS: 99212 ==

== ENCOUNTER 2021-08-03 08:12 | Outpatient (REF) | payer OTHER, SELFPAY ==
[2021-08-03 08:31] LABS: MANUAL DIFF FLAG NO
[2021-08-03 09:19] LABS: Basophils Percent Auto 0.5 % (0-2); Eosinophils Absolute Auto 0.1 X10*3/uL (0.0-0.4); Eosinophils Percent Auto 1.2 % (0-4); Hematocrit 39.2 % (37.0-47.0); Hemoglobin 12.6 g/dl (12.0-16.0); Imm Gran Abs Auto 0.01 X10*3/uL (0.00-0.03); Imm Gran Pct Auto 0.2 % (0.0-0.4); Lymphocytes Absolute Auto 2.5 X10*3/uL (1.2-4.9); Lymphocytes Percent Auto 43.6 % (20-40); Mean Corpuscular HGB Conc 32.1 g/dl (31.0-35.0); Mean Corpuscular Hemoglobin 28.7 pg (27.0-33.0); Mean Corpuscular Volume 89.3 fL (80.0-98.0); Mean Platelet Volume 11.3 fL (9.4-12.3); Monocytes Absolute Auto 0.5 X10*3/uL (0.1-1.2); Monocytes Percent Auto 8.5 % (2-11); Neutrophils Absolute Auto 2.6 x10*3/uL (2.0-8.3); Platelet Count 269 X10*3/uL (160-400); Red Blood Count 4.39 X10*6/uL (4.20-5.50); Red Cell Distribution Width 12.3 % (11.0-16.0); White Blood Count 5.7 X10*3/uL (4.8-10.8)
[2021-08-03 09:37] LABS: Alanine Aminotransferase 27 U/L (0-31); Albumin Level 4.2 g/dL (3.5-5.0); Alkaline Phosphatase 53 U/L (39-117); Anion Gap 12 (12-20); Aspartate Amino Transferase 20 U/L (5-31); Bilirubin Total 0.4 mg/dL (0.0-1.0); Blood Urea Nitrogen 9 mg/dL (9-16); Calcium 9.6 mg/dL (8.4-10.2); Carbon Dioxide 23 mmol/L (22-29); Chloride 111 mmol/L (96-108); Cholesterol 186 mg/dL; Estimated Glomerular Filt Rate > 60; Glucose Random 92 mg/dL (60-115); HDL Cholesterol 54 mg/dL; LDL Cholesterol Calculated 118 mg/dl; Potassium 4.6 mmol/L (3.3-5.1); Sodium 141 mmol/L (135-145); Total Protein 6.6 g/dL (6.5-8.0); Triglycerides 70 mg/dL
[2021-08-03 09:59] LABS: Free T4 (Free Thyroxine) 0.78 ng/dL (0.71-1.85); Thyroid Stimulating Hormone 2.59 uIU/mL (0.32-4.0); Vitamin D 25-OH Total 29.4 ng/mL (>30)
[2021-08-03 10:14] LABS: Folate 17.3 ng/mL (> or = 4.0); Vitamin B12 533 pg/mL (200-900)
== END 2021-08-03 08:13 | disposition home or self-care (01) ==
LOC: HO.LAB 08:12
PROVIDERS: PCP Internal Medicine; Visit Provider Internal Medicine
DX: I10 Essential (primary) hypertension (principal); K21.9 Gastro-esophageal reflux disease without esophagitis; E78.00 Pure hypercholesterolemia, unspecified
CPT/HCPCS: 36415; 80053; 80061; 82306; 82607; 82746; 84439; 84443; 85025

== ENCOUNTER 2022-01-28 14:43 | Outpatient (REF) | payer OTHER, SELFPAY ==
[2022-01-28 15:02] LABS: MANUAL DIFF FLAG NO
--- NOTE | 2022-01-28 15:09 | ECG_ITS ---
Test Reason : preproc exam Blood Pressure : / mmHG Vent. Rate : 092 BPM Atrial Rate : 092 BPM P-R Int : 148 ms QRS Dur : 080 ms QT Int : 392 ms P-R-T Axes : 055 -21 048 degrees QTc Int : 484 ms Normal sinus rhythm Prolonged QT Abnormal ECG When compared with ECG of 24-APR-2020 13:30, Nonspecific T wave abnormality no longer evident in Inferior leads Referred By: Carrie Marshall Electronically Signed By:ARSEN MILLS
[2022-01-28 15:38] LABS: Basophils Percent Auto 0.4 % (0-2); Eosinophils Absolute Auto 0.1 X10*3/uL (0.0-0.4); Eosinophils Percent Auto 1.2 % (0-4); Hematocrit 39.5 % (37.0-47.0); Hemoglobin 12.9 g/dl (12.0-16.0); Imm Gran Abs Auto 0.02 X10*3/uL (0.00-0.03); Imm Gran Pct Auto 0.3 % (0.0-0.4); Lymphocytes Absolute Auto 2.6 X10*3/uL (1.2-4.9); Lymphocytes Percent Auto 37.7 % (20-40); Mean Corpuscular HGB Conc 32.7 g/dl (31.0-35.0); Mean Corpuscular Hemoglobin 28.4 pg (27.0-33.0); Mean Platelet Volume 11.3 fL (9.4-12.3); Monocytes Absolute Auto 0.5 X10*3/uL (0.1-1.2); Monocytes Percent Auto 7.4 % (2-11); Neutrophils Absolute Auto 3.7 x10*3/uL (2.0-8.3); Platelet Count 297 X10*3/uL (160-400); Red Blood Count 4.54 X10*6/uL (4.20-5.50); Red Cell Distribution Width 12.9 % (11.0-16.0); White Blood Count 6.9 X10*3/uL (4.8-10.8)
[2022-01-28 15:58] LABS: Anion Gap 15 (12-20); Blood Urea Nitrogen 8 mg/dL (9-16); Calcium 9.9 mg/dL (8.4-10.2); Carbon Dioxide 24 mmol/L (22-29); Chloride 108 mmol/L (96-108); Estimated Glomerular Filt Rate 58; Glucose Random 107 mg/dL (60-115); Potassium 4.1 mmol/L (3.3-5.1); Sodium 143 mmol/L (135-145)
== END 2022-01-28 14:44 | disposition home or self-care (01) ==
LOC: HO.LAB 14:43
PROVIDERS: Visit Provider Internal Medicine
DX: Z01.818 Encounter for other preprocedural examination (principal)
CPT/HCPCS: 36415; 80048; 85025; 93005

== ENCOUNTER 2022-02-15 15:14 | Outpatient (REF) | payer OTHER, SELFPAY ==
--- NOTE | ~2022-02-15 | MM_ITS ---
EXAMINATION: MM SCREENING DIGITAL BREAST TOMOSYNTHESIS, BILATERAL CLINICAL INFORMATION: Screening. Asymptomatic. The lifetime risk of breast cancer based on the Tyrer-Cuzick Model is 15%. COMPARISON: Mammography: 07/01/2020, 04/04/2018, 10/05/2016 TECHNIQUE: Digital breast tomosynthesis is performed in both the craniocaudal and mediolateral oblique views along with computer-aided detection (CAD). Synthesized 2D images are generated from the tomosynthesis. FINDINGS: There are scattered areas of fibroglandular density (ACR BI-RADS breast composition Category b). There are no significant masses, abnormal calcifications, or other abnormalities. Parenchymal pattern is similar to prior studies. There is no developing density or architectural abnormality. Incidental intramammary node again seen posterior 9:00 right breast. The axilla and skin contours are unremarkable. No significant changes. MM/MM tomosynthesis screening BI IMPRESSION: No mammographic evidence of malignancy. ASSESSMENT: BI-RADS 2: Benign RECOMMENDATION: Routine annual mammography screening. This patient's information was entered into a reminder system with a target due date for their next mammogram.
== END 2022-02-15 15:15 | disposition home or self-care (01) ==
LOC: HO.MAMMO 15:14
PROVIDERS: Absent Provider Obstetrics & Gynecology; Visit Provider Internal Medicine
DX: Z12.31 Encounter for screening mammogram for malignant neoplasm of breast (principal)
CPT/HCPCS: 77063; 77067

== ENCOUNTER → 2022-05-26 09:00 | Outpatient (BNVA) | payer OTHER, SELFPAY | PROVIDERS: PCP Internal Medicine; Visit Provider Nurse Practitioner Family | DX: Z13.89 Encounter for screening for other disorder (principal) ==

== ENCOUNTER 2022-07-29 15:40 | Outpatient (REF) | payer OTHER, SELFPAY ==
--- NOTE | ~2022-07-29 | US_ITS ---
EXAMINATION: US RETROPERITONEAL LIMITED (RENAL ONLY) CLINICAL INFORMATION: Interstitial cystitis (chronic) without hematuria. COMPARISON: Ultrasound abdomen complete 03/25/2019. X-ray KUB 05/29/2015. CT abdomen and pelvis 08/05/2013. TECHNIQUE: Real-time imaging of the kidneys. FINDINGS: RIGHT KIDNEY: 10.8 x 4.7 x 5.9 cm (SAG x AP x TRV). The kidney is normal in size, contour, and echogenicity. Renal cortical thickness is normal. No calculi or focal parenchymal lesions. No hydronephrosis. LEFT KIDNEY: 10.5 x 5.5 x 4.8 cm (SAG x AP x TRV). The kidney is normal in size, contour, and echogenicity. Renal cortical thickness is normal. No calculi or focal parenchymal lesions. No hydronephrosis. US/US retroperitoneal limited IMPRESSION: Normal-appearing kidneys.
== END 2022-07-29 15:41 | disposition home or self-care (01) ==
LOC: HO.US 15:40
PROVIDERS: PCP Internal Medicine; Visit Provider Nurse Practitioner Family
DX: N30.10 Interstitial cystitis (chronic) without hematuria (principal)
CPT/HCPCS: 76775

== ENCOUNTER → 2022-08-09 14:45 | Outpatient (BNVA) | payer OTHER, SELFPAY | PROVIDERS: PCP Internal Medicine; Visit Provider Nurse Practitioner Family | DX: N30.10 Interstitial cystitis (chronic) without hematuria (principal); I10 Essential (primary) hypertension; Z79.899 Other long term (current) drug therapy | CPT/HCPCS: 51700; 51701; 51798; 99212 ==

== ENCOUNTER 2022-08-16 09:26 | Day surgery (SDC) | payer OTHER, SELFPAY ==
--- NOTE | 2022-08-15 10:34 | P.CONAN_ITS ---
Documented by User: Lizz Adam NP 08/15/22 10:36 HPI - Anesthesia Eval Consult details Narrative: 52yo F for Cystoscopy Hydrodistention of Bladder s/p same 02/2021 with GA-LMA 4 PMFSH Active Problems Active Problems: All Active Problems (Updated 07/22/22 @ 16:17 by Carrie Marshall MD) Upper respiratory infection (Acute) Annual physical exam (Acute) Cellulitis of foot (Acute) Preop exam for internal medicine (Acute) Acquired claw toe of left foot (Acute) Vision changes (Acute) Asthma (Acute) Dysphagia (Acute) Left calf atrophy (Acute) Pneumonia due to COVID-19 virus (Acute) Hospital discharge follow-up (Acute) Irritable bowel syndrome (Acute) Generalized anxiety disorder (Acute) Annual physical exam (Acute) Upper respiratory tract infection (Acute) Sinusitis (Acute) GERD (gastroesophageal reflux disease) (Acute) Hypercholesterolemia (Acute) Hypertension (Acute) Interstitial cystitis (Acute) Degenerative disc disease, cervical (Acute) Past Medical History Medical History (Updated 08/16/22 @ 09:42 by Rosa Mitchell RN) Acute sinusitis Anxiety ASCUS (atypical squamous cells of undetermined significance) on gynecologic Papanicolaou smear complicating , antepartum Asthma Cervical radiculopathy COVID-19 vaccine series completed Degenerative disc disease, cervical Dental abscess Dental infection Depression Diarrhea GERD (gastroesophageal reflux disease) History of COVID-19 Hx of flexible sigmoidoscopy Hypercholesterolemia Hypertension IBS (irritable bowel syndrome) Insomnia Interstitial cystitis Lumbar degenerative disc disease Sinusitis, maxillary, chronic Family History Family History Father PTSD (post-traumatic stress disorder) Mental health disorder Mother No problems noted. Maternal Grandmother Breast cancer Maternal Grandfather Myocardial infarction Maternal Uncle Past heart attack Skin cancer Myocardial infarction Other Substance use disorder Surgical History Surgical History (Updated 08/16/22 @ 09:43 by Rosa Mitchell RN) H/O nasal septoplasty History of ankle surgery History of foot surgery History of neck surgery History of surgery History of wisdom tooth extraction Hx of cystoscopy S/P cervical discectomy Status post laparoscopic surgery Social History Social History Housing: House Alcohol intake: current Patient Tobacco Use Status: Never used Tobacco Years Smoked: quit 2009 e-Cigarette/Vaping Use: Never Used Second Hand Smoke Exposure: No service: No Current occupational status: unemployed Cognitive needs: No Hearing needs: No Vision needs: Yes Meds Allergies Allergy/AdvReac Type Severity Reaction Status Date / Time animal dander [ANIMAL HAIR] Allergy Intermediate ASTHMA, Verified 08/16/22 09:43 HIVES lactose [Lactose] Allergy Mild DIARRHEA Verified 08/16/22 09:43 Home Medications Medication Instructions Recorded Confirmed Last Taken Type azelastine 137 mcg (0.1 %) nasal 2 spray intranasal BID 07/29/21 05/26/22 Unknown History spray aerosol epinephrine 0.3 mg/0.3 mL IM ONCE PRN Allergic Reaction 07/29/21 05/26/22 Unknown History injection, auto-injector estradiol 10 mcg vaginal tablet mcg vaginal 07/29/21 05/26/22 Unknown History (Yuvafem) fexofenadine 180 mg tablet 180 mg PO DAILY PRN Allergy 07/29/21 05/26/22 Unknown History Symptoms magnesium oxide 400 mg (241.3 mg 400 mg PO DAILY 07/29/21 05/26/22 Unknown Hi story magnesium) tablet riboflavin (vitamin B2) 400 mg 400 mg PO DAILY 07/29/21 05/26/22 Unknown History tablet Exam Exam Date and Time: August 15, 2022 1034 Pertinent Lab Results Pertinent Lab Results: Laboratory Tests 01/28/22 01/28/22 15:01 15:01 WBC 6.9 Hgb 12.9 Hct 39.5 Plt Count 297 Sodium 143 Potassium 4.1 Chloride 108 Carbon Dioxide 24 BUN 8 L Creatinine 1.00 Narrative Narrative: EKG 01/2022 Vent. Rate : 092 BPM ? ? Atrial Rate : 092 BPM ?? P-R Int : 148 ms? QRS Dur : 080 ms ? ? QT Int : 392 ms ? ? ? P-R-T Axes : 055 -21 048 degrees ?? QTc Int : 484 ms ? Normal sinus rhythm Prolonged QT Abnormal ECG When compared with ECG of 24-APR-2020 13:30, Nonspecific T wave abnormality no longer evident in Inferior leads Assessment and Plan Assessment Anesthesia Assessment: Chart Reviewed Documented by User: Olena Canada MD 08/16/22 10:00 [facility] Past Medical History Medical History (Updated 08/16/22 @ 09:42 by Rosa Mitchell, RN) Acute sinusitis Anxiety ASCUS (atypical squamous cells of undetermined significance) on gynecologic Papanicolaou smear complicating , antepartum Asthma Cervical radiculopathy COVID-19 vaccine series completed Degenerative disc disease, cervical Dental abscess Dental infection Depression Diarrhea GERD (gastroesophageal reflux disease) History of COVID-19 Hx of flexible sigmoidoscopy Hypercholesterolemia Hypertension IBS (irritable bowel syndrome) Insomnia Interstitial cystitis Lumbar degenerative disc disease Sinusitis, maxillary, chronic Family History Family History Father PTSD (post-traumatic stress disorder) Mental health disorder Mother No problems noted. Maternal Grandmother Breast cancer Maternal Grandfather Myocardial infarction Maternal Uncle Past heart attack Skin cancer Myocardial infarction Other Substance use disorder Family history of problems with anesthesia: No Surgical History Surgical History (Updated 08/16/22 @ 09:43 by Rosa Mitchell, CARMEN) H/O nasal septoplasty History of ankle surgery History of foot surgery History of neck surgery History of surgery History of wisdom tooth extraction Hx of cystoscopy S/P cervical discectomy Status post laparoscopic surgery History of Problems with Anesthesia: Yes (nauseous post op) Social History Social History Housing: House Alcohol intake: current Patient Tobacco Use Status: Never used Tobacco Years Smoked: quit 2009 e-Cigarette/Vaping Use: Never Used Second Hand Smoke Exposure: No service: No Current occupational status: unemployed Cognitive needs: No Hearing needs: No Vision needs: Yes Meds Allergies Allergy/AdvReac Type Severity Reaction Status Date / Time animal dander [ANIMAL HAIR] Allergy Intermediate ASTHMA, Verified 08/16/22 09:43 HIVES lactose [Lactose] Allergy Mild DIARRHEA Verified 08/16/22 09:43 Home Medications Medication Instructions Recorded Confirmed Last Taken Type azelastine 137 mcg (0.1 %) nasal 2 spray intranasal BID 07/29/21 05/26/22 Unknown History spray aerosol epinephrine 0.3 mg/0.3 mL IM ONCE PRN Allergic Reaction 07/29/21 05/26/22 Unknown History injection, auto-injector estradiol 10 mcg vaginal tablet mcg vaginal 07/29/21 05/26/22 Unknown History (Yuvafem) fexofenadine 180 mg tablet 180 mg PO DAILY PRN Allergy 07/29/21 05/26/22 Unknown History Symptoms magnesium oxide 400 mg (241.3 mg 400 mg PO DAILY 07/29/21 05/26/22 Unknown History magnesium) tablet riboflavin (vitamin B2) 400 mg 400 mg PO DAILY 07/29/21 05/26/22 Unknown History tablet Exam Airway Mallampati Class: II TM Dist: >3cm Neck ROM: Full Heart: rr Lungs: cta Assessment and Plan Assessment Anesthesia Assessment: Anesthesia Plan Discussed Final Anesthetic Review Family History of Problems with Anesthesia: No History of Problems with Anesthesia: Yes (nauseous post op) NPO: Yes ASA Class: II Final Preanesthetic Review: No Changes in Pt Med Stat, Meds/Allgs Chart Reviewed, Consent Obtained/Reviewed and Anes Risks/Benef Reviewed Patient Risk: Low Procedure Risk: Low Anesthetic Plan Anesthetic Plan: GA Disposition: Standard PACU
[2022-08-16] VITALS (7 sets, daily range): BP systolic 112–133; BP diastolic 71–92; PULSE 69–80; RESP 15–16; TEMP 36.1–36.9; O2SAT 94–97; BMI 25.0
--- NOTE | 2022-08-16 09:54 | MHC.SHP ---
Pre-Procedural Eval Section A Date of Service: 08/16/22 The patient is an INPATIENT: No The History & Physical has been completed within 30 days and I have reviewed it.: Yes Section B Chief Complaint: Interstitial cystitis (chronic) without hematuria Allergies: Allergies Allergy/AdvReac Type Severity Reaction Status Date / Time animal dander [ANIMAL HAIR] Allergy Intermediate ASTHMA, Verified 08/16/22 09:43 HIVES lactose [Lactose] Allergy Mild DIARRHEA Verified 08/16/22 09:43 Plan Diagnosis/Plan: Unchanged I have reviewed the history and physical and performed a pertinent physical examination on my patient. No changes have occurred unless specified. Cysto Hydrodistension Time Spent With Patient Time: Total time managing care of this patient today ____ minutes.
[2022-08-16] MEDS: Scopolamine 1.5 MG PATCH.TD.3 EAR-BEHIND (10:00)
[2022-08-16] MEDS: Lactated Ringers 1,000 ML 100 ML IVCONT (10:07)
[2022-08-16] MEDS: Phenazopyridine HCL 200 MG TABLET PO (12:06)
--- NOTE | 2022-08-26 13:21 | W.PM.OPN ---
Operative Note Operative Note Date of Service: 08/16/22 Narrative: PREOP DIAGNOSIS: Interstitial cystitis, pelvic pain POSTOP DIAGNOSIS: Interstitial cystitis, pelvic pain PROCEDURE: CYSTOSCOPY HYDRODISTENTION Anethesia: General Surgeon: Dr. Carla Mcmillan Indications: Wendy is followed for interstitial cystits and has had flare in IC symptoms, increased bladder pain. Details of procedure: The patient was brought into the operating room placed on the OR table in supine position. 2 g of Ancef IV. General anesthesia was administered. The patient was repositioned into lithotomy position, prepped and draped in the usual sterile fashion. Time-out was done per protocol. A 22 fr cystoscope was placed transurethrally into the bladder. The right and left ureteral orifices were visualized. The entire bladder was visualized. There were no suspicious bladder lesions seen. The bladder was filled with sterile water at 80 cm of water pressure under gravity. The bladder was distended for 2 minutes. Bladder capacity measured 900 mL. Revisualization of the bladder, noted no glomerulations. No Damian ulcerations. The bladder was refilled with sterile water again at 80 cm of water pressure under gravity. The bladder was distended for 3 minutes. The fluid was drained from the bladder and measured 975 mL. The cystoscope was removed. 2% lidocaine urojet was passed transurethrally, Solution of (1% lidocaine plain, 15 mL, 0.5 % Marcaine 15 mL mixed with 30, 000 units of heparin concentration 5000 units per mL total of 6 mL hepaine) instilled transurethrally into the bladder. The patient was brought out of anesthesia and taken to recovery in stable condition. Complications: None Drains: none
== END 2022-08-16 12:54 | disposition home or self-care (01) ==
PROVIDERS: Absent Provider Internal Medicine; PCP Internal Medicine; Visit Provider Urology
PROC: 0T7B7ZZ Dilation of Bladder, Via Natural or Artificial Opening (ICD-10-PCS; CPT 52260; principal; 2022-08-16 10:30)
DX: N30.10 Interstitial cystitis (chronic) without hematuria (principal); R10.2 Pelvic and perineal pain; I10 Essential (primary) hypertension; E78.00 Pure hypercholesterolemia, unspecified; J32.0 Chronic maxillary sinusitis; Z79.899 Other long term (current) drug therapy; Z79.51 Long term (current) use of inhaled steroids; Z86.16 Personal history of COVID-19; Z87.891 Personal history of nicotine dependence
CPT/HCPCS: 52260; J0690; J1643; J2250; J2405; J2795; J3010

== ENCOUNTER 2022-08-16 09:38 | Outpatient (REF) | payer OTHER, SELFPAY ==
[2022-08-16 09:22] LABS: MANUAL DIFF FLAG NO
[2022-08-16 09:41] LABS: Basophils Percent Auto 0.6 % (0-2); Eosinophils Absolute Auto 0.1 X10*3/uL (0.0-0.4); Eosinophils Percent Auto 2.1 % (0-4); Hematocrit 38.7 % (37.0-47.0); Hemoglobin 12.5 g/dl (12.0-16.0); Imm Gran Abs Auto 0.01 X10*3/uL (0.00-0.03); Imm Gran Pct Auto 0.2 % (0.0-0.4); Lymphocytes Absolute Auto 2.3 X10*3/uL (1.2-4.9); Lymphocytes Percent Auto 43.4 % (20-40); Mean Corpuscular HGB Conc 32.3 g/dl (31.0-35.0); Mean Corpuscular Hemoglobin 28.3 pg (27.0-33.0); Mean Corpuscular Volume 87.8 fL (80.0-98.0); Mean Platelet Volume 10.9 fL (9.4-12.3); Monocytes Absolute Auto 0.4 X10*3/uL (0.1-1.2); Monocytes Percent Auto 8.1 % (2-11); Neutrophils Absolute Auto 2.4 x10*3/uL (2.0-8.3); Neutrophils Percent Auto 45.6 % (45-73); Platelet Count 231 X10*3/uL (160-400); Red Blood Count 4.41 X10*6/uL (4.20-5.50); Red Cell Distribution Width 12.5 % (11.0-16.0); White Blood Count 5.3 X10*3/uL (4.8-10.8)
[2022-08-16 10:02] LABS: Appearance Urine Clear; Color Urine Dark Yellow; Glucose Urine UA Negative (Negative); Leukocyte Esterase Urine Negative (Negative); Nitrite Urine Negative (Negative); PH 6.5 (5.0-9.0); Specific Gravity - Urine 1.015 (1.005-1.025); Urine Blood Negative (Negative); Urine Ketones Negative (Negative); Urine Protein Negative (Neg-Trace)
[2022-08-16 10:12] LABS: Bacteria Urine None Seen (None Seen); Hyaline Casts Urine 0-2 /LPF (0-2); RBC Urine 0-2 /HPF (0-2); WBC Urine 0-5 /HPF (0-5)
[2022-08-16 10:20] LABS: Alanine Aminotransferase 29 U/L (0-31); Albumin Level 4.3 g/dL (3.5-5.0); Alkaline Phosphatase 52 U/L (39-117); Anion Gap 12 (12-20); Aspartate Amino Transferase 23 U/L (5-31); Bilirubin Total 0.8 mg/dL (0.0-1.0); Blood Urea Nitrogen 7 mg/dL (9-16); Calcium 9.4 mg/dL (8.4-10.2); Carbon Dioxide 25 mmol/L (22-29); Chloride 112 mmol/L (96-108); Cholesterol 194 mg/dL; Estimated Glomerular Filt Rate > 60; Glucose Random 91 mg/dL (60-115); HDL Cholesterol 60 mg/dL; LDL Cholesterol Calculated 124 mg/dl; Potassium 4.2 mmol/L (3.3-5.1); Sodium 145 mmol/L (135-145); Total Protein 6.3 g/dL (6.5-8.0); Triglycerides 53 mg/dL
[2022-08-16 10:55] LABS: Folate 15.5 ng/mL (> or = 4.0); Free T4 (Free Thyroxine) 0.78 ng/dL (0.71-1.85); Thyroid Stimulating Hormone 2.08 uIU/mL (0.32-4.0); Vitamin B12 729 pg/mL (200-900); Vitamin D 25-OH Total 38.7 ng/mL (>30)
== END 2022-08-16 09:39 | disposition home or self-care (01) ==
LOC: HO.LAB 09:38
PROVIDERS: PCP Internal Medicine; Visit Provider Internal Medicine
DX: E78.00 Pure hypercholesterolemia, unspecified (principal)
CPT/HCPCS: 36415; 80053; 80061; 81001; 82306; 82607; 82746; 84439; 84443; 85025

== ENCOUNTER → 2022-08-26 14:29 | Outpatient (BNVA) | payer OTHER, SELFPAY | PROVIDERS: PCP Internal Medicine; Visit Provider Urology | DX: N30.10 Interstitial cystitis (chronic) without hematuria (principal) | CPT/HCPCS: 99212 ==

== ENCOUNTER → 2022-11-17 11:35 | Outpatient (BNVA) | payer OTHER, SELFPAY | PROVIDERS: PCP Internal Medicine; Visit Provider Urology | DX: N30.10 Interstitial cystitis (chronic) without hematuria (principal); R10.2 Pelvic and perineal pain | CPT/HCPCS: 99212 ==

== ENCOUNTER 2023-02-09 15:37 | Outpatient (AMB) | payer OTHER, SELFPAY ==
[2023-02-09 15:38] VITALS: BP 140/62; PULSE 76; O2SAT 99; BMI 25.0
--- NOTE | 2023-02-09 15:38 | MHC.PC.OV ---
Vital Signs 02/09/23 15:38 02/09/23 16:07 Height 5 ft 5 in Weight 150 lb BMI 25.0 BP 140/62 H 128/70 Blood Pressure Location Lt brachial Lt brachial Position Sitting Sitting Pulse 76 Pulse Source Pulse Oximeter Pulse Oximetry (%) 99 Oxygen Delivery Method Room Air Intake Visit Reasons: 3mth f/u Manager Eligibility: Not Required per policy Accompanied by: Self / Same As Patient Allergies animal dander [ANIMAL HAIR] Allergy (Intermediate, Verified 02/09/23 15:38) ASTHMA, HIVES lactose [Lactose] Allergy (Mild, Verified 02/09/23 15:38) DIARRHEA Tobacco use date assessed: 07/22/22 Dental Screening Dental Screen Date: 02/09/23 Did you have a dental visit in the last 12 months?: Yes Did you have a dental problem in the last 6 months where you did not have access to dental care?: No Was dental information given to patient?: Patient has dentist HPI 3mth f/u HPI Details 53-year-old female with degenerative disc disease cervical interstitial cystitis hypertension hypercholesterolemia GERD and generalized anxiety disorder last seen in October 2022. plaed on hydroxyzine by neurology. for the IC- seen urologist - taken off elmiron- - will be taken off placed on hydroxyzine high doses= got really dizzy. patient self medicated with epinephrine- advised not to do that anymore. [facility] Medical History IBS (irritable bowel syndrome) Anxiety Depression Asthma Hx of flexible sigmoidoscopy COVID-19 vaccine series completed History of COVID-19 Dental abscess Dental infection Sinusitis, maxillary, chronic Acute sinusitis Diarrhea Cervical radiculopathy ASCUS (atypical squamous cells of undetermined significance) on gynecologic Papanicolaou smear complicating , antepartum Lumbar degenerative disc disease GERD (gastroesophageal reflux disease) Hypercholesterolemia Insomnia Hypertension Interstitial cystitis Degenerative disc disease, cervical Surgical History History of foot surgery Hx of cystoscopy History of surgery History of neck surgery S/P cervical discectomy H/O nasal septoplasty History of ankle surgery Status post laparoscopic surgery History of wisdom tooth extraction Family History Father PTSD (post-traumatic stress disorder) Mental health disorder Mother No problems noted. Maternal Grandmother Breast cancer Maternal Grandfather Myocardial infarction Maternal Uncle Past heart attack Skin cancer Myocardial infarction Other Substance use disorder Social History Housing: House Alcohol intake: current Patient Tobacco Use Status: Never used Tobacco Years Smoked: quit 2009 e-Cigarette/Vaping Use: Never Used Second Hand Smoke Exposure: No service: No Current occupational status: unemployed Cognitive needs: No Hearing needs: No Vision needs: Yes Questionnaire PHQ-9 Over the last 2 weeks, how often have you been bothered by any of the following problems? 1. Little interest or pleasure in doing things: not at all 2. Feeling down, depressed, or hopeless: not at all 3. Trouble falling or staying asleep, or sleeping too much: not at all 4. Feeling tired or having little energy: not at all 5. Poor appetite or overeating: not at all 6. Feeling bad about yourself - or that you are a failure or have let yourself or your family down: not at all 7. Trouble concentrating on things, such as reading the newspaper or watching television: not at all 8. Moving or speaking so slowly that other people could have noticed. Or the opposite - being so fidgety or restless that you have been moving around a lot more than usual: not at all 9. Thoughts that you would be better off or of hurting yourself in some way: not at all Total score: 0 Depression Screening Interpretation: Positive Source: Developed by Drs. Vineet Centeno, Eri Gaming, Brent Biswas and colleagues, with an educational mulugeta from [employer]. Thrive Questionnaire Date Thrive assessed: 07/22/22 AUDIT C Alcohol Use Questionnaire (AUDIT-C) 1. How often do you have a drink containing alcohol?: 2-3 times a week 2. How many drinks containing alcohol do you have on a typical day when you are drinking?: 1 or 2 3. How often do you have six or more drinks on one occasion?: Never Total Score: 3 SURENDRA-7 AMB Questionnaire SURENDRA-7 Date SURENDRA - 7 assessed: 07/22/22 Source: Developed by Drs. Vineet L. TarynEri barnes, Brent Biswas and colleagues, with an educational mulugeta from [employer]. Physical exam (Primary Care) Vital Signs: Last Vital Signs Pulse 76 02/09/23 15:38 BP 128/70 02/09/23 16:07 Pulse Ox 99 02/09/23 15:38 Oxygen Delivery Method Room Air 02/09/23 15:38 BMI result Body Mass Index 25.0 Tobacco/Smoking Status: Tobacco use Status Tobacco use date assessed 07/22/22 02/09/23 15:39 Patient Tobacco Use Status Never used Tobacco 02/09/23 15:39 e-Cigarette/Vaping Use Never Used 02/09/23 15:39 PHQ-9: PHQ-9 Score PHQ-9: Total score 0 02/09/23 16:11 Depression Screening Interpretation: Positive Thrive Assessment: Date of Thrive Assessment Date Thrive assessed 07/22/22 02/09/23 15:39 Const General: alert; No acute distress Eyes Conjunctivae: conjunctivae normal Resp Auscultation: clear to auscultation bilaterally Cardio Rate: regular rate Rhythm: regular rhythm GI Inspection: Yes normal to inspection Extrem General: Yes normal to inspection and No edema Assessment and Plan Assessment & Plan (1) Degenerative disc disease, cervical: Code(s): M50.30 - Other cervical disc degeneration, unspecified cervical region Plan: Narcotic pain meds: Is being prescribed with the understanding that these medications are potentially addictive and should be used only when absolutely necessary and must always be secured. Any remaining pills should be safely disposed off appropriately. Patient is advised that narcotics can impaired judgment and one should not drive or operate heavy machinery while taking these medications. Never share these medications with anybody and do not leave them unattended. They will not be replaced under any circumstances. (2) Interstitial cystitis: Code(s): N30.10 - Interstitial cystitis (chronic) without hematuria Plan: seeing Urologist trying to take elmiron out. Discussed about following up with urology to discuss about side effects of increasing the hydroxyzine that happened to her. (3) Generalized anxiety disorder: Comment: will try to get own counsellor (07/2022) Code(s): F41.1 - Generalized anxiety disorder Plan: continue with med and still awaiting a new counselor (4) Hypertension: Code(s): I10 - Essential (primary) hypertension Qualifiers: Hypertension type: essential hypertension Qualified Code(s): I10 - Essential (primary) hypertension Plan: BLood pressure controlled low salt diet continue with taking the medication Coding Level of Care Code Est Pt Level 4 (70885) Diagnoses Degenerative disc disease, cervical M50.30 Interstitial cystitis N30.10 Generalized anxiety disorder F41.1 Essential hypertension I10 Hypertension type: essential hypertension Additional Codes PHQ-9 - 97080 - PHQ-9 Billing: ([id number])
[2023-02-09 16:07] VITALS: BP 128/70
== END 2023-02-09 16:28 | disposition home or self-care (01) ==
PROVIDERS: PCP Internal Medicine; Visit Provider Internal Medicine
DX: I10 Essential (primary) hypertension (principal); M50.30 Other cervical disc degeneration, unspecified cervical region; N30.10 Interstitial cystitis (chronic) without hematuria; F41.1 Generalized anxiety disorder
CPT/HCPCS: 99214

== ENCOUNTER 2023-02-21 14:56 | Outpatient (REF) | payer OTHER, SELFPAY | END 2023-02-21 14:57 | disposition home or self-care (01) | LOC: HO.MAMMO 14:56 | PROVIDERS: PCP Internal Medicine; Visit Provider Internal Medicine | DX: Z12.31 Encounter for screening mammogram for malignant neoplasm of breast (principal) | CPT/HCPCS: 77063; 77067 ==

== ENCOUNTER → 2023-02-21 15:00 | Outpatient (BNV) | payer OTHER, SELFPAY | PROVIDERS: PCP Internal Medicine; Visit Provider Radiology Diagnostic Radiology | DX: Z12.31 Encounter for screening mammogram for malignant neoplasm of breast (principal) | CPT/HCPCS: 77063; 77067 ==

== ENCOUNTER 2023-03-07 10:57 | Outpatient (AMB) | payer OTHER, SELFPAY ==
--- NOTE | 2023-03-07 11:08 | AM.OFFVISNUR ---
Intake Intake Visit Reasons: Flu Shot Allergies animal dander [ANIMAL HAIR] Allergy (Intermediate, Verified 02/09/23 15:38) ASTHMA, HIVES lactose [Lactose] Allergy (Mild, Verified 02/09/23 15:38) DIARRHEA Office Procedures Flu Questionnaire Does the patient have a severe egg allergy?: No Does the patient have severe life threatening allergies?: No Does the patient have a fever or illness today?: No Has the patient ever had Guillain-Pineland Syndrome?: No Has the patient ever had any past reaction to a flu shot?: No Immunizations flu vacc [id number] 6mos up(PF) 60 mcg(15 mcgx4)/0.5 mL IM syringe Performing Provider: Carrie Marshall MD [facility] Administered by: Indu Kumar RN on 03/07/23 11:08 Dose Route Admin Location Dispensed Lot Number Expiration Date NDC Risk Management Director 0.5 mL IM Right Gluteus Castro 0.5 mL [id number] 11/18/22 54543-796-13 [employer] VIS Given Date VIS Provided VIS Publication Date 03/07/23 Single Vaccine 20 Eligibility Eligibility Date Funding Source Not VFC Eligible 03/07/23 Private Coding Assessment & Plan Assessment & Plan Orders: Orders Influenza [id number] Immunization Today Z23 - Encounter for immunization
== END 2023-03-07 11:10 | disposition home or self-care (01) ==
PROVIDERS: PCP Internal Medicine; Visit Provider Internal Medicine
DX: Z23 Encounter for immunization (principal)
CPT/HCPCS: 90471; 90686

== ENCOUNTER 2023-03-27 15:34 | Outpatient (AMB) | payer OTHER, SELFPAY ==
--- NOTE | 2023-03-27 15:14 | A.OFFVIS_ITS ---
Intake Intake Visit Reasons: IC- follow up/3m Intake Note: Patient presents today for a 3mo follow-up on CI: Meds- Estradiol & Pyridium Allergies to Antibiotic- None Blood Thinner- None Plier Worker Required: No Accompanied by: Self / Same As Patient Allergies animal dander [ANIMAL HAIR] Allergy (Intermediate, Verified 03/27/23 15:39) ASTHMA, HIVES lactose [Lactose] Allergy (Mild, Verified 03/27/23 15:39) DIARRHEA HPI HPI Comments History of Present Illness Details Wendy is a 53-year-old female who presents today to the office for a follow-up. 03/27/23-- Wendy is a 53-year-old female who was diagnosed with IC in 2015 and was started on Elmiron. The patient is currently on 200 mg twice a day. Co-morbidity: cervical spine condition and status post fusion of C3 and C4 in November 2016 and disc replacement between C5 and C6 in March 2019. She is has chronic pain and is prescribed Vicodin by pain management. She presents to the office for 1-month interstitial cystitis follow-up. She is still using the Elmiron 200 mg BID. I discussed tapering off the elmiron due to reported side effects with correction use. She states when she tried lowering the elmiron use, she had bladder pain. I prescribed hydroxyzine and she states when she increased dose from 25 to 50 mg she had numbness. She states that she has seen Dr. Myles, ophthalmology and was told that there was no retinal damage. States following IC diet. One coffee in the morning during the week. Does not consume tomatoes or citrus foods. Consumes alcohol once a week and mentions occasional worsening of bladder pain due to alcohol. she is using prelief prn, when she consumes pizza, pasta, or alcohol. Evaluation today UA: Blood: negative, leukocytes: negative. 03/27/2023: Plan: Discontinue Elmiron. Ordered liver function testing. Will start bladder instillations with heparin, lidocaine, and solumedrol with nursing staff, daily for 5 days, then bi weekly x 2, then weekly x 8 then reevaluate. FU with me in 3 months [facility] Medical History IBS (irritable bowel syndrome) Anxiety Depression Asthma Hx of flexible sigmoidoscopy COVID-19 vaccine series completed History of COVID-19 Dental abscess Dental infection Sinusitis, maxillary, chronic Acute sinusitis Diarrhea Cervical radiculopathy ASCUS (atypical squamous cells of undetermined significance) on gynecologic Papanicolaou smear complicating , antepartum Lumbar degenerative disc disease GERD (gastroesophageal reflux disease) Hypercholesterolemia Insomnia Hypertension Interstitial cystitis Degenerative disc disease, cervical Surgical History History of foot surgery Hx of cystoscopy History of surgery History of neck surgery S/P cervical discectomy H/O nasal septoplasty History of ankle surgery Status post laparoscopic surgery History of wisdom tooth extraction Family History Father PTSD (post-traumatic stress disorder) Mental health disorder Mother No problems noted. Maternal Grandmother Breast cancer Maternal Grandfather Myocardial infarction Maternal Uncle Past heart attack Skin cancer Myocardial infarction Other Substance use disorder Social History Housing: House Alcohol intake: current Patient Tobacco Use Status: Never used Tobacco Years Smoked: quit 2009 e-Cigarette/Vaping Use: Never Used Second Hand Smoke Exposure: No service: No Current occupational status: unemployed Cognitive needs: No Hearing needs: No Vision needs: Yes Review of Systems Const All systems reviewed & are unremarkable except as noted in HPI and below Reports no additional complaints Eyes Reports no additional complaints ENT Reports no additional complaints Card Denies dyspnea Resp Denies cough and Denies dyspnea GI Reports no additional complaints Reports no additional complaints Musc Reports no additional complaints Skin/Breast Denies rash and Denies unusual bruising Neuro Reports no additional complaints Psych Reports no additional complaints Endo Reports no additional complaints Kyler/Lymph Reports no additional complaints Aller/Immun Reports no additional complaints Office Procedures Post Void Residual Post Residual Void Post Void Residual (PVR): 0 [id number] Void Residual by ultrasound Results AMB Urinalysis, Automated UA Leukoctes 15 David/uL Last Edit by Alexis Mota, A on 03/27/23 15:50 UA Nitrite Negative Last Edit by Alexis Mota, A on 03/27/23 15:50 UA Urobilinogen 0.2 mg/dL Last Edit by Alexis Mota, A on 03/27/23 15:5 0 UA Protein 0 mg/dL Last Edit by Alexis Mota, A on 03/27/23 15:50 UA pH 6.0 Last Edit by Alexis oMta, A on 03/27/23 15:50 UA Blood 0 Neel/uL Last Edit by Alexis Mota, A on 03/27/23 15:50 UA Specific [place] 1.015 Last Edit by Alexis Mota, A on 03/27/23 15: 50 UA Ketone Negative Last Edit by Alexis Mota, [facility] on 03/27/23 15:50 UA Bilirubin 0 mg/dL Last Edit by Alexis Mota, A on 03/27/23 15:50 UA Glucose 0 mg/dL Last Edit by Alexis Mota, [facility] on 03/27/23 15:50 Results Reviewed Results Reviewed: Laboratory Last Values Urine pH (Auto) 6.0 03/27/23 15:42 Specific [place] (Auto) 1.015 03/27/23 15:42 Urine Protein (Auto) 0 mg/dL 03/27/23 15:42 Glucose (UA)(Auto) 0 mg/dL 03/27/23 15:42 Urine Ketones (Auto) Negative 03/27/23 15:42 Urine Blood (Auto) 0 Neel/uL 03/27/23 15:42 Urine Nitrite (Auto) Negative 03/27/23 15:42 Urine Bilirubin (Auto) 0 mg/dL 03/27/23 15:42 Urine Urobilinogen (Auto) 0.2 mg/dL 03/27/23 15:42 Leukocyte Esterase (Auto) 15 David/uL 03/27/23 15:42 Assessment & Plan Assessment & Plan (1) Interstitial cystitis: Code(s): N30.10 - Interstitial cystitis (chronic) without hematuria (2) Pelvic pain: Code(s): R10.2 - Pelvic and perineal pain Plan Discontinue Elmiron. Ordered liver function testing. Will start bladder instillations with heparin, lidocaine, and solumedrol with nursing staff, daily for 5 days, then bi weekly x 2, then weekly x 8 then reevaluate. FU with me in 3 months Orders: Orders AMB Urinalysis Automated Today Z13.9 - Encounter for screening, unspecified Gamma Glutamyl Transpeptidase Today N30.10 - Interstitial cystitis (chronic) without hematuria AMB Post Void Residual by ultrasound Today N39.8 - Other specified disorders of urinary system Alpha Fetoprotein Today N30.10 - Interstitial cystitis (chronic) without hematuria Lactate Dehydrogenase Today N30.10 - Interstitial cystitis (chronic) without hematuria Alpha 1 Anti-trypsin Today N30.10 - Interstitial cystitis (chronic) without hematuria Medications: Discontinued pentosan polysulfate sodium (Elmiron) Discontinued Reason: Doctor's Order 100 mg PO BID 90 days 180 caps 0RF hydroxyzine pamoate (Vistaril) Discontinued Reason: Doctor's Order 50 mg PO BEDTIME 90 days 90 caps 0RF Patient Instructions: The patient had an opportunity to ask questions regarding treatment plan. All questions were answered. Imaging, Laboratory studies and physical exam results were discussed and reviewed in detail. No major barriers to understanding were identified. The patient expressed understanding and agreement with the above treatment plan.? ? ? The patient is aware they should contact our office by phone for worsening of their current condition or the appearance of new symptoms. Compliance is encouraged with any medications and followup testing that is ordered.? ? ? It is a privilege to be allowed the opportunity to participate in the urologic care of your patient. If you have any questions or concerns regarding treatment for the above conditions please do not hesitate to contact me. The office telephone contact is [phone].? ? ? This note is constructed in part using voice recognition software. While every effort has been made to ensure accuracy tube puller errors may have been included.? ? ? Yours sincerely,? ? ? Carla Mcmillan MD? Coding Level of Care Code Est Pt Level 4 (47998) Diagnoses Interstitial cystitis N30.10 Pelvic pain R10.2 CPT Codes Post Residual Void - PVR CPT Code: 11924-Cmna Void Residual by ultrasound ([id number]) Time Spent (min) 32
== END 2023-03-27 16:30 | disposition home or self-care (01) ==
PROVIDERS: PCP Internal Medicine; Visit Provider Urology
DX: N30.10 Interstitial cystitis (chronic) without hematuria (principal); R10.2 Pelvic and perineal pain; Z13.9 Encounter for screening, unspecified
CPT/HCPCS: 99214

== ENCOUNTER → 2023-03-27 15:34 | Outpatient (BNVA) | payer OTHER, SELFPAY | PROVIDERS: PCP Internal Medicine; Visit Provider Urology | DX: N30.10 Interstitial cystitis (chronic) without hematuria (principal); R10.2 Pelvic and perineal pain | CPT/HCPCS: 51798; 81003; 99212 ==

== ENCOUNTER → 2023-04-03 15:29 | Outpatient (BNVA) | payer OTHER, SELFPAY | PROVIDERS: PCP Internal Medicine; Visit Provider Urology | DX: N30.10 Interstitial cystitis (chronic) without hematuria (principal) | CPT/HCPCS: 51700; 51701 ==

== ENCOUNTER → 2023-04-04 15:24 | Outpatient (BNVA) | payer OTHER, SELFPAY | PROVIDERS: PCP Internal Medicine; Visit Provider Urology | DX: N30.10 Interstitial cystitis (chronic) without hematuria (principal) | CPT/HCPCS: 51700; 51701 ==

== ENCOUNTER → 2023-04-05 15:35 | Outpatient (BNVA) | payer OTHER, SELFPAY | PROVIDERS: PCP Internal Medicine; Visit Provider Urology | DX: N30.10 Interstitial cystitis (chronic) without hematuria (principal) | CPT/HCPCS: 51700; 51701 ==

== ENCOUNTER → 2023-04-07 15:24 | Outpatient (BNVA) | payer OTHER, SELFPAY | PROVIDERS: PCP Internal Medicine; Visit Provider Urology | DX: N30.10 Interstitial cystitis (chronic) without hematuria (principal) | CPT/HCPCS: 51700; 51701 ==

== ENCOUNTER 2023-07-22 09:20 | Outpatient (REF) | payer OTHER, SELFPAY ==
[2023-07-22 10:12] LABS: Appearance Urine Clear; Color Urine Yellow; Glucose Urine UA Negative (Negative); Leukocyte Esterase Urine Negative (Negative); Nitrite Urine Negative (Negative); Specific Gravity - Urine <= 1.005 (1.005-1.025); Urine Blood Negative (Negative); Urine Ketones Negative (Negative); Urine Protein Negative (Neg-Trace)
[2023-07-22 10:18] LABS: Bacteria Urine None Seen (None Seen); Hyaline Casts Urine 0-2 /LPF (0-2); RBC Urine 0-2 /HPF (0-2); Squamous Epithelial Cell Urine 0-2 /HPF (0-2); WBC Urine 0-5 /HPF (0-5)
[2023-07-22 10:31] LABS: Alanine Aminotransferase 51 U/L (0-31); Albumin Level 4.2 g/dL (3.5-5.0); Alkaline Phosphatase 61 U/L (39-117); Anion Gap 11 (12-20); Aspartate Amino Transferase 31 U/L (5-31); Bilirubin Total 0.4 mg/dL (0.0-1.0); Blood Urea Nitrogen 7 mg/dL (9-16); Calcium 9.7 mg/dL (8.4-10.2); Carbon Dioxide 28 mmol/L (22-29); Chloride 108 mmol/L (96-108); Cholesterol 198 mg/dL (<200); Estimated Glomerular Filt Rate > 60; Gamma Glutamyl Transpeptidase 28 U/L (7-33); Glucose Random 98 mg/dL (60-115); HDL Cholesterol 65 mg/dL (>40); LDL Cholesterol Calculated 119 mg/dL (<100); Lactate Dehydrogenase 144 U/L (122-220); Potassium 4.1 mmol/L (3.3-5.1); Sodium 143 mmol/L (135-145); Total Protein 6.9 g/dL (6.5-8.0); Triglycerides 74 mg/dL (<150)
[2023-07-22 10:36] LABS: Free T4 (Free Thyroxine) 0.71 ng/dL (0.71-1.85)
[2023-07-22 10:39] LABS: Thyroid Stimulating Hormone 1.84 uIU/mL (0.32-4.0)
[2023-07-22 10:50] LABS: Folate 11.3 ng/mL (> or = 4.0); Vitamin B12 741 pg/mL (200-900)
[2023-07-24 13:43] LABS: Alpha 1 Anti-trypsin 149 mg/dL (83-199)
[2023-07-25 06:20] LABS: Alpha Fetoprotein 2.7 ng/mL
== END 2023-07-22 09:21 | disposition home or self-care (01) ==
LOC: HO.LAB 09:20
PROVIDERS: PCP Internal Medicine; Visit Provider Urology
DX: N30.10 Interstitial cystitis (chronic) without hematuria (principal); E78.00 Pure hypercholesterolemia, unspecified
CPT/HCPCS: 36415; 80053; 80061; 81001; 82103; 82105; 82306; 82607; 82746; 82977; 83615; 84439; 84443

== ENCOUNTER 2023-07-25 15:37 | Outpatient (AMB) | payer OTHER, SELFPAY ==
[2023-07-25 15:44] VITALS: BP 104/78; PULSE 96; O2SAT 97; BMI 25.8
--- NOTE | 2023-07-25 15:44 | A.OFFPC_ITS ---
Vital Signs 07/25/23 15:44 Height 5 ft 5 in Weight 155 lb 0.2 oz BMI 25.8 BP 104/78 Blood Pressure Location Lt brachial Position Sitting Pulse 96 Pulse Source Pulse Oximeter Temp Source Skin Pulse Oximetry (%) 97 Oxygen Delivery Method Room Air Intake Visit Reasons: pe Intake Note: Patient is here today for a physical. 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 Integration Developer Required: No Allergies animal dander [ANIMAL HAIR] Allergy (Intermediate, Verified 07/25/23 15:45) ASTHMA, HIVES lactose [Lactose] Allergy (Mild, Verified 07/25/23 15:45) DIARRHEA Medication List - Last Reconciled 07/25/23 by Carrie Conner Po, albuterol sulfate 90 mcg/actuation (ProAir HFA) 2 puffs inhalation Q4-6H PRN 30 days azelastine 2 sprays intranasal BID baclofen 10 mg PO BID PRN 10 days bupropion HCl 150 mg PO DAILY bupropion HCl 75 mg PO DAILY 90 days cholecalciferol (vitamin D3) 50 mcg PO DAILY dicyclomine 20 mg (2 x 10 mg) PO BID diphenhydramine HCl (Banophen) 50 mg PO BEDTIME PRN epinephrine IM ONCE PRN escitalopram oxalate 10 mg PO DAILY estradiol (Yuvafem) mcg vaginal famotidine 20 mg PO BID fexofenadine 180 mg PO DAILY PRN 90 days fluticasone propion-salmeterol 250-50 mcg/dose (Advair Diskus) 1 inh inhalation Q12H fluticasone propionate 50 mcg/actuation 2 sprays intranasal DAILY hydrocodone-acetaminophen 5-325 mg 1 tab PO TID PRN 30 days ibuprofen 600 mg PO Q8H PRN lisinopril 5 mg PO DAILY loperamide (Anti-Diarrheal (loperamide)) 2 mg PO QID PRN 30 days magnesium oxide 400 mg PO DAILY menthol 5% (Cold and Hot (menthol)) 1 patch topical DAILY PRN elise-brandin-carlitonyrs-epcnd-vrp 118-10-40.8-36 mg (Uribel) 1 tab PO TID montelukast 10 mg PO BEDTIME 90 days promethazine 25 mg PO Q12H PRN zolpidem 10 mg PO BEDTIME 90 days Tobacco use date assessed: 07/25/23 Dental Screening Dental Screen Date: 07/25/23 Did you have a dental visit in the last 12 months?: Yes Did you have a dental problem in the last 6 months where you did not have access to dental care?: No Was dental information given to patient?: Patient has dentist HPI pe HPI Details 53-year-old female with a history of cer vical degenerative disc disease on narcotic pain medication interstitial cystitis hypertension generalized anxiety disorder last seen in January 2023 patient is here for physical exam. Colonoscopy June 2018, mammogram is up-to-date February 2023. Seeing Urology for hydrodistention. R hip pain 1 year also seen [facility] seen before [facility] Medical History IBS (irritable bowel syndrome) Anxiety Depression Asthma Hx of flexible sigmoidoscopy COVID-19 vaccine series completed History of COVID-19 Dental abscess Dental infection Sinusitis, maxillary, chronic Acute sinusitis Diarrhea Cervical radiculopathy ASCUS (atypical squamous cells of undetermined significance) on gynecologic Papanicolaou smear complicating , antepartum Lumbar degenerative disc disease GERD (gastroesophageal reflux disease) Hypercholesterolemia Insomnia Hypertension Interstitial cystitis Degenerative disc disease, cervical Surgical History History of foot surgery Hx of cystoscopy History of surgery History of neck surgery S/P cervical discectomy H/O nasal septoplasty History of ankle surgery Status post laparoscopic surgery History of wisdom tooth extraction Family History Father PTSD (post-traumatic stress disorder) Mental health disorder Mother No problems noted. Maternal Grandmother Breast cancer Maternal Grandfather Myocardial infarction Maternal Uncle Past heart attack Skin cancer Myocardial infarction Other Substance use disorder Social History (Updated 07/25/23 @ 16:27 by Carrie Marshall MD) Housing: House Alcohol intake: current Comment: once a week 2 drinks Patient Tobacco Use Status: Never used Tobacco Years Smoked: quit 2009, CBD, vaping e-Cigarette/Vaping Use: Never Used Second Hand Smoke Exposure: No service: No Current occupational status: unemployed Cognitive needs: No Hearing needs: No Vision needs: Yes Questionnaire PHQ-9 Over the last 2 weeks, how often have you been bothered by any of the following problems? 1. Little interest or pleasure in doing things: not at all 2. Feeling down, depressed, or hopeless: not at all 3. Trouble falling or staying asleep, or sleeping too much: not at all 4. Feeling tired or having little energy: not at all 5. Poor appetite or overeating: not at all 6. Feeling bad about yourself - or that you are a failure or have let yourself or your family down: not at all 7. Trouble concentrating on things, such as reading the newspaper or watching television: not at all 8. Moving or speaking so slowly that other people could have noticed. Or the opposite - being so fidgety or restless that you have been moving around a lot more than usual: not at all 9. Thoughts that you would be better off or of hurting yourself in some way: not at all Total score: 0 Depression Screening Interpretation: Negative Depression Screening Done: Yes Source: Developed by Drs. Vineet Centeno, Eri [employer], Brent Biswas and colleagues, with an educational mulugeta from [employer]. Thrive Questionnaire Date Thrive assessed: 07/25/23 I am a: Patient What is your living situation today?: I have a steady place to live Within the past 12 months, did the food you bought not last and you didn't have the money to get more?: Never true Within the past 12 months, did you worry whether your food would run out before you got money to buy more?: Never true Do you have trouble paying for medicines?: No Do you have trouble getting transportation to medical appointments?: No Do you have trouble paying your heating and electricity bill?: No Do you have trouble taking care of your child, family member or friend?: No Do you have trouble with day-to-day activities such as bathing, preparing meals, shopping, managing finances, etc.?: No Are you currently unemployed and looking for a job?: No Are you interested in more education?: No Please select the resources that you would like help with: None THRIVE Score: 0 AUDIT C Alcohol Use Questionnaire (AUDIT-C) 1. How often do you have a drink containing alcohol?: 2-3 times a week 2. How many drinks containing alcohol do you have on a typical day when you are drinking?: 1 or 2 3. How often do you have six or more drinks on one occasion?: Never Total Score: 3 SURENDRA-7 AMB Questionnaire SURENDRA-7 Date SURENDRA - 7 assessed: 07/25/23 Feeling nervous, anxious, or on edge: 0 = Not at all Not being able to stop or control worryin = Not at all Worrying too much about different things: 0 = Not at all Trouble relaxin = Not at all Being so restless that it is hard to sit still: 0 = Not at all Becoming easily annoyed or irritable: 0 = Not at all Feeling afraid as if something awful might happen: 0 = Not at all Total SURENDRA-7 score (0-4 normal; 5-9 mild; 10-14 moderate; 15-21 severe): 0 Source: Developed by Drs. Vineet Centeno, [employer], Brent Biswas and colleagues, with an educational mulugeta from [employer]. Review of Systems Const Denies poor appetite and Denies weakness Eyes Denies no additional complaints ENT Reports Normal hearing present, Denies dizziness, Denies nasal congestion, Denies tinnitus and Denies sore throat Card Denies chest pain, Denies syncope, Denies rapid heart rate and Denies dyspnea Resp Denies cough and Denies dyspnea GI Denies change in stool character, Reports constipation, Denies diarrhea, Denies nausea and Denies vomiting Denies urinary frequency, Denies difficulty voiding and Denies dysuria Neuro Reports Normal hearing present, Denies confusion, Denies dizziness, Denies syncope and Denies weakness Psych Denies confusion Physical exam (Primary Care) Vital Signs: Last Vital Signs Pulse 96 07/25/23 15:44 BP 104/78 07/25/23 15:44 Pulse Ox 97 07/25/23 15:44 Oxygen Delivery Method Room Air 07/25/23 15:44 BMI result Body Mass Index 25.8 Tobacco/Smoking Status: Tobacco use Status Tobacco use date assessed 07/25/23 07/25/23 15:46 Patient Tobacco Use Status Never used Tobacco 07/25/23 15:46 e-Cigarette/Vaping Use Never Used 07/25/23 15:46 PHQ-9: PHQ-9 Score PHQ-9: Total score 0 07/25/23 15:57 Depression Screening Interpretation: Negative Thrive Assessment: Date of Thrive Assessment Date Thrive assessed 07/25/23 07/25/23 15:46 Const General: No confusion Orientation/consciousness: No confusion HENMT Head: Yes normocephalic Ears: external ears normal and TM's normal bilaterally Face and sinus: Yes normal facial exam Mouth: moist mucous membranes Throat: Yes tonsils normal Eyes Conjunctivae: conjunctivae normal Pupils: Equal, round and reactive pupils present and Pupil accommodation reflex normal Direct Ophthalmoscopy: normal light reflex Neck Neck: No lymphadenopathy Thyroid: Thyroid normal Chest Chest palpation & inspection: normal inspection of the chest Resp Effort & Inspection: normal respiratory effort and no audible wheezes Auscultation: clear to auscultation bilaterally, no crackles, no wheezes and lung sounds not diminished Cardio Rate: regular rate Rhythm: regular rhythm Peripheral pulses: radial pulses present and dorsalis pedis present GI Palpation (GI): no masses Auscultation: normal bowel sounds and normoactive bowel sounds Rectal Exam - Female: deferred Skin General skin exam: no rashes or lesions noted Rashes: no rashes Neuro General: No confusion Cranial nerves: Yes Equal, round and reactive pupils present and Yes Normal hearing present Cognition (Neuro): normal cognition Gait exam (Neuro): Normal gait present Motor exam (neuro): 5/5 motor strength present throughout Deep tendon reflexes (DTR's): Right brachioradialis reflex intensity grade: 2+, Left brachioradialis reflex intensity grade: 2+, Right patellar reflex intensity grade: 2+ and Left patellar reflex intensity grade: 2+ Extrem General: No edema Assessment and Plan Assessment & Plan (1) Annual physical exam: Code(s): Z00.00 - Encounter for general adult medical examination without abnormal findings (2) Interstitial cystitis: Code(s): N30.10 - Interstitial cystitis (chronic) without hematuria Plan: Continue to follow-up with urology (3) Degenerative disc disease, cervical: Code(s): M50.30 - Other cervical disc degeneration, unspecified cervical region Plan: Narcotic pain meds: Is being prescribed with the understanding that these medications are potentially addictive and should be used only when absolutely necessary and must always be secured. Any remaining pills should be safely disposed off appropriately. Patient is advised that narcotics can impaired judgment and one should not drive or operate heavy machinery while taking these medications. Never share these medications with anybody and do not leave them unattended. They will not be replaced under any circumstances. (4) Hypertension: Code(s): I10 - Essential (primary) hypertension Qualifiers: Hypertension type: essential hypertension Qualified Code(s): I10 - Essential (primary) hypertension Plan: Continue with blood pressure medication. Decrease salt intake and exercise on lisinopril 5 mg once a day (5) Hypercholesterolemia: Code(s): E78.00 - Pure hypercholesterolemia, unspecified Plan: Avoid fried foods, chicken skin, eggs, butter margarine, pastries and meat. Be it pork or beef they have a lot of cholesterol LDL goal of less than 130 and triglyceride of less than 150 this is diet controlled (6) GERD (gastroesophageal reflux disease): Code(s): K21.9 - Gastro-esophageal reflux disease without esophagitis Plan: Avoid the foods that causes that usually spicy foods, tomato products, juices, coffee, soda and foods that your sensitive to. After eating do not lie down, allow 3-4 hours before in lie down. And keep the head of bed above 30 degrees to avoid the acid from going up. (7) Generalized anxiety disorder: Comment: will try to get own counsellor (07/2022) Code(s): F41.1 - Generalized anxiety disorder Plan: Continue with counseling and therapy on Bue per prior on Lexapro (8) Asthma: Code(s): J45.909 - Unspecified asthma, uncomplicated Qualifiers: Asthma severity: mild Asthma persistence: intermittent Asthma complication type: uncomplicated Qualified Code(s): J45.20 - Mild intermittent asthma, uncomplicated Plan: Continue with inhalers Wixela and albuterol (9) Dysphagia: Code(s): R13.10 - Dysphagia, unspecified (10) Memory loss: Code(s): R41.3 - Other amnesia Orders: Orders FL barium swallow Today R13.10 - Dysphagia, unspecified FL upper GI series Today R13.10 - Dysphagia, unspecified Referrals Neurology Referral R41.3 - Other amnesia Medications: Refilled albuterol sulfate 90 mcg/actuation (ProAir HFA) 2 puffs inhalation Q4-6H 30 days PRN 8.5 grams 0RF shortness of breath or wheezing fluticasone propionate 50 mcg/actuation 2 sprays intranasal DAILY 16 mL 11RF fexofenadine 180 mg PO DAILY 90 days PRN 90 tabs 3RF Allergy Symptoms dicyclomine 20 mg (2 x 10 mg) PO BID 60 caps 1RF K58.9 - Irritable bowel syndrome without diarrhea escitalopram oxalate 10 mg PO DAILY 90 tabs 1RF F32.9 - Major depressive disorder, single episode, unspecified, F41.9 - Anxiety disorder, unspecified Coding Level of Care Code Est Pt Prev Care 40-64y(64443) Diagnoses Annual physical exam Z00.00 Interstitial cystitis N30.10 Degenerative disc disease, cervical M50.30 Essential hypertension I10 Hypertension type: essential hypertension Hypercholesterolemia E78.00 GERD (gastroesophageal reflux disease) K21.9 Generalized anxiety disorder F41.1 Mild intermittent asthma without complication J45.20 Asthma severity: mild Asthma persistence: intermittent Asthma complication type: uncomplicated Dysphagia R13.10 Memory loss R41.3
== END 2023-07-25 16:47 | disposition home or self-care (01) ==
PROVIDERS: PCP Internal Medicine; Visit Provider Internal Medicine
DX: Z00.00 Encounter for general adult medical examination without abnormal findings (principal); N30.10 Interstitial cystitis (chronic) without hematuria; M50.30 Other cervical disc degeneration, unspecified cervical region; I10 Essential (primary) hypertension; E78.00 Pure hypercholesterolemia, unspecified; K21.9 Gastro-esophageal reflux disease without esophagitis; F41.1 Generalized anxiety disorder; J45.20 Mild intermittent asthma, uncomplicated; R13.10 Dysphagia, unspecified; R41.3 Other amnesia; F32.9 Major depressive disorder, single episode, unspecified
CPT/HCPCS: 99396

== ENCOUNTER 2023-07-26 15:30 | Outpatient (AMB) | payer OTHER, SELFPAY ==
--- NOTE | 2023-07-26 15:45 | A.OFFVIS_ITS ---
Intake Intake Visit Reasons: 4m/labs- Hydrodistention discussion Intake Note: Patient presents today for Hydrodistention Discussion: Meds- Estradiol & Pyridium Allergies to Antibiotic- None Blood Thinner- None Sales Representative Cash Registers Required: No Accompanied by: Self / Same As Patient Allergies animal dander [ANIMAL HAIR] Allergy (Intermediate, Verified 07/26/23 15:46) ASTHMA, HIVES lactose [Lactose] Allergy (Mild, Verified 07/26/23 15:46) DIARRHEA HPI HPI Comments History of Present Illness Details 07/26/2023-- Wendy is a 53-year-old female who presents today to the office for a follow-up. mother with alzheimers stress exacerbates IC symptoms, urge. She has been doing the bladder instillations with the nursing staff. using Prelief with coffee. 2 tabs Discussed repeat cysto/hydro Review of chart: 03/27/23-- Wendy is a 53-year-old female who was diagnosed with IC in 2015 and was started on Elmiron. The patient is currently on 200 mg twice a day. Co-morbidity: cervical spine condition and status post fusion of C3 and C4 in November 2016 and disc replacement between C5 and C6 in March 2019. She is has chronic pain and is prescribed Vicodin by pain management. She presents to the office for 1-month interstitial cystitis follow-up. She is still using the Elmiron 200 mg BID. 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 She states when she tried lowering the elmiron use, she had bladder pain. I prescribed hydroxyzine and she states when she increased dose from 25 to 50 mg she had numbness. She states that she has seen Dr. Myles, ophthalmology and was told that there was no retinal damage. States following IC diet. One coffee in the morning during the week. Does not consume tomatoes or citrus foods. Consumes alcohol once a week and mentions occasional worsening of bladder pain due to alcohol. she is using prelief prn, when she consumes pizza, pasta, or alcohol. Evaluation today UA: Blood: negative, leukocytes: negative. Discontinue Elmiron. Ordered liver function testing. Will start bladder instillations with heparin, lidocaine, and solumedrol with nursing staff, daily for 5 days, then bi weekly x 2, then weekly x 8 then reevaluate. FU with me in 3 months 07/26/2023: Plan: Repeat cysto hydrodistension. [facility] Medical History (Updated 07/25/23 @ 16:39 by Carrie Marshall MD) IBS (irritable bowel syndrome) Anxiety Depression Asthma Hx of flexible sigmoidoscopy COVID-19 vaccine series completed History of COVID-19 Dental abscess Dental infection Sinusitis, maxillary, chronic Acute sinusitis Diarrhea Cervical radiculopathy ASCUS (atypical squamous cells of undetermined significance) on gynecologic Papanicolaou smear complicating , antepartum Lumbar degenerative disc disease GERD (gastroesophageal reflux disease) Hypercholesterolemia Insomnia Hypertension Interstitial cystitis Degenerative disc disease, cervical Surgical History (Updated 08/04/23 @ 12:06 by Pia Owens RN) History of foot surgery Hx of cystoscopy History of surgery History of neck surgery S/P cervical discectomy H/O nasal septoplasty History of ankle surgery Status post laparoscopic surgery History of wisdom tooth extraction Family History Father PTSD (post-traumatic stress disorder) Mental health disorder Mother No problems noted. Maternal Grandmother Breast cancer Maternal Grandfather Myocardial infarction Maternal Uncle Past heart attack Skin cancer Myocardial infarction Other Substance use disorder Social History (Updated 07/25/23 @ 16:27 by Carrie Marshall MD) Housing: House Alcohol intake: current Comment: once a week 2 drinks Patient Tobacco Use Status: Never used Tobacco Years Smoked: quit 2009, CBD, vaping e-Cigarette/Vaping Use: Never Used Second Hand Smoke Exposure: No service: No Current occupational status: unemployed Cognitive needs: No Hearing needs: No Vision needs: Yes Review of Systems Const All systems reviewed & are unremarkable except as noted in HPI and below Reports no additional complaints Eyes Reports no additional complaints ENT Reports no additional complaints Card Denies dyspnea Resp Denies cough and Denies dyspnea GI Reports no additional complaints Reports no additional complaints Musc Reports no additional complaints Skin/Breast Denies rash and Denies unusual bruising Neuro Reports no additional complaints Psych Reports no additional complaints Endo Reports no additional complaints Kyler/Lymph Reports no additional complaints Aller/Immun Reports no additional complaints Physical Exam Const General: cooperative, healthy appearing and no acute distress Orientation/consciousness: patient oriented x3 HEENT Head: Yes normal to inspection, Yes normocephalic and Yes atraumatic Eyes Conjunctivae: conjunctivae normal Neck Neck: Yes normal visual inspection and Yes trachea midline Chest Chest palpation & inspection: normal inspection of the chest Resp Effort & Inspection: normal respiratory effort Cardio Rate: regular rate GI Inspection: Yes normal to inspection Skin General skin exam: no rashes or lesions noted Neuro General: patient oriented x3 Extrem General: No edema Psych Appearance: grossly normal Assessment & Plan Assessment & Plan (1) Interstitial cystitis: Code(s): N30.10 - Interstitial cystitis (chronic) without hematuria (2) Pelvic pain: Code(s): R10.2 - Pelvic and perineal pain Plan Repeat cysto hydrodistension. Orders: Orders AMB Urinalysis Automated 07/26/23 Z13.9 - Encounter for screening, unspecified Medications: New fluconazole take one tab, repeat in dose in 2 days 150 mg PO ONCE 2 tabs 0RF Refilled methen-m.blue-s.ewgz-ogerf-rkl 118-10-40.8-36 mg (Uribel) administer with plenty of fluids 1 tab PO TID 90 caps 3RF Patient Instructions: The patient had an opportunity to ask questions regarding treatment plan. All questions were answered. Laboratory studies and physical exam results were discussed and reviewed in detail. No major barriers to understanding were identified. The patient expressed understanding and agreement with the above treatment plan. The patient is aware they should contact our office by phone for worsening of their current condition or the appearance of new symptoms. Compliance is encouraged with any medications and followup testing that is ordered. It is a privilege to be allowed the opportunity to participate in the urologic care of your patient. If you have any questions or concerns regarding treatment for the above conditions please do not hesitate to contact me. The office telephone contact is [phone]. This note is constructed in part using voice recognition software. While every effort has been made to ensure accuracy unleavened dough mixer errors may have been included. Yours sincerely, Carla Mcmillan MD Coding Level of Care Code Est Pt Level 4 (60089) Diagnoses Interstitial cystitis N30.10 Pelvic pain R10.2
== END 2023-07-26 16:34 | disposition home or self-care (01) ==
PROVIDERS: PCP Internal Medicine; Visit Provider Urology
DX: N30.10 Interstitial cystitis (chronic) without hematuria (principal); R10.2 Pelvic and perineal pain
CPT/HCPCS: 99214

== ENCOUNTER → 2023-07-26 15:30 | Outpatient (BNVA) | payer OTHER, SELFPAY | PROVIDERS: PCP Internal Medicine; Visit Provider Urology | DX: N30.10 Interstitial cystitis (chronic) without hematuria (principal); R10.2 Pelvic and perineal pain | CPT/HCPCS: 99212 ==

== ENCOUNTER 2023-08-08 07:25 | Day surgery (SDC) | payer OTHER, SELFPAY ==
--- NOTE | 2023-08-07 09:11 | P.CONAN_ITS ---
Documented by User: Lizz Adam NP 08/07/23 09:14 HPI - Anesthesia Eval Consult details Narrative: 53yo F for Cystoscopy Hydrodistention of Bladder s/p same 07[facility]2022 [facility] Active Problems Active Problems: All Active Problems (Updated 07/25/23 @ 16:39 by Carrie Marshall MD) Memory loss (Acute) Pelvic pain (Acute) Upper respiratory infection (Acute) Annual physical exam (Acute) Cellulitis of foot (Acute) Preop exam for internal medicine (Acute) Acquired claw toe of left foot (Acute) Vision changes (Acute) Sinusitis (Acute) Upper respiratory tract infection (Acute) Annual physical exam (Acute) Generalized anxiety disorder (Acute) Irritable bowel syndrome (Acute) Hospital discharge follow-up (Acute) Pneumonia due to COVID-19 virus (Acute) Left calf atrophy (Acute) Dysphagia (Acute) Asthma (Acute) GERD (gastroesophageal reflux disease) (Acute) Hypercholesterolemia (Acute) Hypertension (Acute) Interstitial cystitis (Acute) Degenerative disc disease, cervical (Acute) Past Medical History Medical History IBS (irritable bowel syndrome) Anxiety Depression Asthma Hx of flexible sigmoidoscopy COVID-19 vaccine series completed History of COVID-19 Dental abscess Dental infection Sinusitis, maxillary, chronic Acute sinusitis Diarrhea Cervical radiculopathy ASCUS (atypical squamous cells of undetermined significance) on gynecologic Papanicolaou smear complicating , antepartum Lumbar degenerative disc disease GERD (gastroesophageal reflux disease) Hypercholesterolemia Insomnia Hypertension Interstitial cystitis Degenerative disc disease, cervical Family History Family History Father PTSD (post-traumatic stress disorder) Mental health disorder Mother No problems noted. Maternal Grandmother Breast cancer Maternal Grandfather Myocardial infarction Maternal Uncle Past heart attack Skin cancer Myocardial infarction Other Substance use disorder Family history of problems with anesthesia: No Surgical History Surgical History History of foot surgery Hx of cystoscopy History of surgery History of neck surgery S/P cervical discectomy H/O nasal septoplasty History of ankle surgery Status post laparoscopic surgery History of wisdom tooth extraction History of Problems with Anesthesia: Yes (nauseous post op) Social History Social History Housing: House Alcohol intake: current Comment: once a week 2 drinks Patient Tobacco Use Status: Never used Tobacco Years Smoked: quit 2009, CBD, vaping e-Cigarette/Vaping Use: Never Used Second Hand Smoke Exposure: No Use of substances other than those prescribed or required for medical reasons: No Are you DNR?: No Advance Directives: No Advance Directives Information Provided: Yes service: No Current occupational status: unemployed Cognitive needs: No Hearing needs: No Vision needs: Yes Meds Allergies Allergy/AdvReac Type Severity Reaction Status Date / Time animal dander [ANIMAL HAIR] Allergy Intermediate ASTHMA, Verified 07/26/23 15:46 HIVES lactose [Lactose] Allergy Mild DIARRHEA Verified 07/26/23 15:46 Home Medications Medication Instructions Recorded Confirmed Last Taken Type azelastine 137 mcg (0.1 %) nasal 2 spray intranasal BID 07/29/21 08/04/23 Unknown History spray aerosol epinephrine 0.3 mg/0.3 mL 0.3 mg IM ONCE PRN Allergic 07/29/21 08/04/23 Unknown History injection, auto-injector Reaction estradiol 10 mcg vaginal tablet 10 mcg vaginal Q3D 07/29/21 08/04/23 Unknown History (Yuvafem) magnesium oxide 400 mg (241.3 mg 400 mg PO DAILY 07/29/21 08/04/23 Unknown History magnesium) tablet fluticasone 250 mcg-salmeterol 50 1 inh inhalation Q12H 07/25/23 08/04/23 08/08/23 History mcg/dose blistr powdr for inhalation (Advair Diskus) ibuprofen 600 mg tablet 600 mg PO Q8H PRN Pain 07/25/23 08/04/23 Unknown History Exam Height,Weight and Vital Signs: Height 5 ft 5 in Pertinent Lab Results Pertinent Lab Results: Laboratory Tests 07/22/23 09:37 Sodium 143 Potassium 4.1 Chloride 108 Carbon Dioxide 28 BUN 7 L Creatinine 0.83 Assessment and Plan Assessment Anesthesia Assessment: Chart Reviewed Final Anesthetic Review Family History of Problems with Anesthesia: No History of Problems with Anesthesia: Yes (nauseous post op) Documented by User: Juli Chen MD 08/08/23 08:50 PMFSH Past Medical History Medical History IBS (irritable bowel syndrome) Anxiety Depression Asthma Hx of flexible sigmoidoscopy COVID-19 vaccine series completed History of COVID-19 Dental abscess Dental infection Sinusitis, maxillary, chronic Acute sinusitis Diarrhea Cervical radiculopathy ASCUS (atypical squamous cells of undetermined significance) on gynecologic Papanicolaou smear complicating , antepartum Lumbar degenerative disc disease GERD (gastroesophageal reflux disease) Hypercholesterolemia Insomnia Hypertension Interstitial cystitis Degenerative disc disease, cervical Family History Family History Father PTSD (post-traumatic stress disorder) Mental health disorder Mother No problems noted. Maternal Grandmother Breast cancer Maternal Grandfather Myocardial infarction Maternal Uncle Past heart attack Skin cancer Myocardial infarction Other Substance use disorder Surgical History Surgical History History of foot surgery Hx of cystoscopy History of surgery History of neck surgery S/P cervical discectomy H/O nasal septoplasty History of ankle surgery Status post laparoscopic surgery History of wisdom tooth extraction Social History Social History Housing: House Alcohol intake: current Comment: once a week 2 drinks Patient Tobacco Use Status: Never used Tobacco Years Smoked: quit 2009, CBD, vaping e-Cigarette/Vaping Use: Never Used Second Hand Smoke Exposure: No Use of substances other than those prescribed or required for medical reasons: No Are you DNR?: No Advance Directives: No Advance Directives Information Provided: Yes service: No Current occupational status: unemployed Cognitive needs: No Hearing needs: No Vision needs: Yes Meds Allergies Allergy/AdvReac Type Severity Reaction Status Date / Time animal dander [ANIMAL HAIR] Allergy Intermediate ASTHMA, Verified 07/26/23 15:46 HIVES lactose [Lactose] Allergy Mild DIARRHEA Verified 07/26/23 15:46 Home Medications Medication Instructions Recorded Confirmed Last Taken Type azelastine 137 mcg (0.1 %) nasal 2 spray intranasal BID 07/29/21 08/04/23 Unknown History spray aerosol epinephrine 0.3 mg/0.3 mL 0.3 mg IM ONCE PRN Allergic 07/29/21 08/04/23 Unknown History injection, auto-injector Reaction estradiol 10 mcg vaginal tablet 10 mcg vaginal Q3D 07/29/21 08/04/23 Unknown History (Yuvafem) magnesium oxide 400 mg (241.3 mg 400 mg PO DAILY 07/29/21 08/04/23 Unknown History magnesium) tablet fluticasone 250 mcg-salmeterol 50 1 inh inhalation Q12H 07/25/23 08/04/23 08/08/23 History mcg/dose blistr powdr for inhalation (Advair Diskus) ibuprofen 600 mg tablet 600 mg PO Q8H PRN Pain 07/25/23 08/04/23 Unknown History Exam Airway Mallampati Class: II TM Dist: >3cm Neck ROM: Full Heart: rrr Lungs: cta Assessment and Plan Assessment Anesthesia Assessment: Anesthesia Plan Discussed Final Anesthetic Review NPO: Yes ASA Class: III Final Preanesthetic Review: No Changes in Pt Med Stat, Meds/Allgs Chart Reviewed, Consent Obtained/Reviewed and Anes Risks/Benef Reviewed Patient Risk: Intermediate Procedure Risk: Low Anesthetic Plan Anesthetic Plan: GA Disposition: Standard PACU
[2023-08-08 07:59] VITALS: BP 108/68; PULSE 76; RESP 18; TEMP 36.1; O2SAT 97
[2023-08-08 08:08] VITALS: BMI 28.0
[2023-08-08] MEDS: Lactated Ringers 1,000 ML 100 ML IVCONT (08:18)
--- NOTE | 2023-08-08 09:24 | MHC.SHP ---
Pre-Procedural Eval Section A - 24 Hr Update-Section A only Date of Service: 08/08/23 The patient has been examined within 24 hours of the surgical procedure. The History & Physical has been completed within 30 days and I have reviewed it.: Yes Section B - Complete if H&P > 30 days Chief Complaint: Interstitial cystitis (chronic) without hematuria Allergies: Allergies Allergy/AdvReac Type Severity Reaction Status Date / Time animal dander [ANIMAL HAIR] Allergy Intermediate ASTHMA, Verified 07/26/23 15:46 HIVES lactose [Lactose] Allergy Mild DIARRHEA Verified 07/26/23 15:46 Plan Diagnosis/Plan: Unchanged I have reviewed the history and physical and performed a pertinent physical examination on my patient. No changes have occurred unless specified. Cystoscopy hydrodistention. Discussed risks to include but not limited to, blood in the urine, burning with urination, urgency. Time Spent With Patient Time: Total time managing care of this patient today ____ minutes.
--- NOTE | 2023-08-08 09:27 | PC.NURSE ---
0900 anesthesia at bedside for consents. 0920 Dr. Damico at bedside for consent.
[2023-08-08 10:20] VITALS: BP 109/81; PULSE 84; RESP 16; TEMP 36.4; O2SAT 95
--- NOTE | 2023-08-08 10:23 | W.PM.OPN ---
Operative Note Operative Note Date of Service: 08/08/23 Narrative: PREOP DIAGNOSIS: Interstitial cystitis, pelvic pain, urinary urgency POSTOP DIAGNOSIS: Interstitial cystitis, pelvic pain, urinary urgency PROCEDURE: CYSTOSCOPY HYDRODISTENTION Anethesia: General Surgeon: Dr. Carla Mcmillan Details of procedure: The patient was brought into the operating room placed on the OR table in supine position. 2 g of Ancef IV. General anesthesia was administered. The patient was repositioned into lithotomy position, prepped and draped in the usual sterile fashion. Time-out was done per protocol. A 22 fr cystoscope was placed transurethrally into the bladder. Urine was drained from the bladder measuring 250 mL.The right and left ureteral orifices were visualized. The entire bladder was visualized. There were no suspicious bladder lesions seen. The bladder was filled with sterile water at 80 cm of water pressure under gravity. The bladder was distended for 3 minutes. Bladder capacity measured 900 mL. Revisualization of the bladder, no glomerulations or Damian ulcerations noted. The bladder was refilled with sterile water again at 80 cm of water pressure under gravity. The bladder was distended for 3 minutes. The fluid was drained from the bladder and measured 900 mL. The cystoscope was removed. 2% lidocaine urojet was passed transurethrally, Solution of (1% lidocaine plain, 15 mL, 0.5 % Marcaine 15 mL mixed with 30, 000 units of heparin concentration 5000 units per mL total of 6 mL hepaine) instilled transurethrally into the bladder. The patient was brought out of anesthesia and taken to recovery in stable condition. Complications: None Drains: none
[2023-08-08 10:25] VITALS: BP 112/77; PULSE 89; RESP 17; O2SAT 99
[2023-08-08 10:35] VITALS: BP 120/82; PULSE 90; RESP 17; O2SAT 100
[2023-08-08 10:56] VITALS: BP 137/83; PULSE 81; RESP 20; TEMP 36.4; O2SAT 100
== END 2023-08-08 11:52 | disposition home or self-care (01) ==
PROVIDERS: PCP Internal Medicine; Visit Provider Urology
PROC: 0T7B7ZZ Dilation of Bladder, Via Natural or Artificial Opening (ICD-10-PCS; CPT 52260; principal; 2023-08-08 09:20)
DX: N30.10 Interstitial cystitis (chronic) without hematuria (principal); E73.9 Lactose intolerance, unspecified; F32.A Depression, unspecified; F41.9 Anxiety disorder, unspecified; J45.909 Unspecified asthma, uncomplicated; I10 Essential (primary) hypertension; E78.00 Pure hypercholesterolemia, unspecified; Z98.890 Other specified postprocedural states; Z79.899 Other long term (current) drug therapy
CPT/HCPCS: 52260; J0131; J0690; J1644; J2704; J2795; J3010

== ENCOUNTER → 2023-08-08 07:25 | Outpatient (BNV) | payer OTHER, SELFPAY | PROVIDERS: PCP Internal Medicine; Visit Provider Urology | DX: N30.10 Interstitial cystitis (chronic) without hematuria (principal) | CPT/HCPCS: 52260 ==

== ENCOUNTER 2023-08-31 15:50 | Outpatient (AMB) | payer OTHER, SELFPAY ==
--- NOTE | 2023-08-31 15:50 | MHC.OFFVIS ---
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 She is status post repeat cystoscopy hydrodistention on 08/08/2023--cystoscopy findings bladder capacity post post distention 900 mL no glomerulations observed. The patient states that she has been doing better since the cystoscopy. She is aware that she has stress-induced IC flare ups. 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 She is planning to have her moved to an assisted living facility which she feels will be beneficial to her mother and take some of the stress away. She denies dysuria. She denies gross hematuria or urinary incontinence. Urinalysis: Urinalysis negative blood negative. Plan follow-up in 6 months. Review of chart: 07/26/2023-- Wendy is a 53-year-old female who presents today to the office for a follow-up. mother with alzheimers stress exacerbates IC symptoms, urge. She has been doing the bladder instillations with the nursing staff. using Prelief with coffee. 2 tabs Discussed repeat cysto/hydro 03/27/23-- Wendy is a 53-year-old female who was diagnosed with IC in 2015 and was started on Elmiron. The patient is currently on 200 mg twice a day. Co-morbidity: cervical spine condition and status post fusion of C3 and C4 in November 2016 and disc replacement between C5 and C6 in March 2019. She is has chronic pain and is prescribed Vicodin by pain management. She presents to the office for 1-month interstitial cystitis follow-up. She is still using the Elmiron 200 mg BID. 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 She states when she tried lowering the elmiron use, she had bladder pain. I prescribed hydroxyzine and she states when she increased dose from 25 to 50 mg she had numbness. She states that she has seen Dr. Myles, ophthalmology and was told that there was no retinal damage. States following IC diet. One coffee in the morning during the week. Does not consume tomatoes or citrus foods. Consumes alcohol once a week and mentions occasional worsening of bladder pain due to alcohol. she is using prelief prn, when she consumes pizza, pasta, or alcohol. Evaluation today UA: Blood: negative, leukocytes: negative. Discontinue Elmiron. Ordered liver function testing. Will start bladder instillations with heparin, lidocaine, and solumedrol with nursing staff, daily for 5 days, then bi weekly x 2, then weekly x 8 then reevaluate. FU with me in 3 months 08/31/23: Plan--follow-up in 6 months. Patient is working on reducing stress [facility] Medical History IBS (irritable bowel syndrome) Anxiety Depression Asthma Hx of flexible sigmoidoscopy COVID-19 vaccine series completed History of COVID-19 Dental abscess Dental infection Sinusitis, maxillary, chronic Acute sinusitis Diarrhea Cervical radiculopathy ASCUS (atypical squamous cells of undetermined significance) on gynecologic Papanicolaou smear complicating , antepartum Lumbar degenerative disc disease GERD (gastroesophageal reflux disease) Hypercholesterolemia Insomnia Hypertension Interstitial cystitis Degenerative disc disease, cervical Surgical History History of foot surgery Hx of cystoscopy History of surgery History of neck surgery S/P cervical discectomy H/O nasal septoplasty History of ankle surgery Status post laparoscopic surgery History of wisdom tooth extraction Family History Father PTSD (post-traumatic stress disorder) Mental health disorder Mother No problems noted. Maternal Grandmother Breast cancer Maternal Grandfather Myocardial infarction Maternal Uncle Past heart attack Skin cancer Myocardial infarction Other Substance use disorder Social History Housing: House Alcohol intake: current Comment: once a week 2 drinks Patient Tobacco Use Status: Never used Tobacco Years Smoked: quit 2009, CBD, vaping e-Cigarette/Vaping Use: Never Used Second Hand Smoke Exposure: No service: No Current occupational status: unemployed Cognitive needs: No Hearing needs: No Vision needs: Yes Review of Systems Const All systems reviewed & are unremarkable except as noted in HPI and below Reports no additional complaints Eyes Reports no additional complaints ENT Reports no additional complaints Card Reports no additional complaints Resp Reports no additional complaints GI Reports no additional complaints Reports as per HPI Musc Reports no additional complaints Skin/Breast Reports system reviewed and no additional complaints, except as documented Neuro Reports no additional complaints Psych Reports no additional complaints Endo Reports no additional complaints Kyler/Lymph Reports no additional complaints Aller/Immun Reports no additional complaints Results AMB Urinalysis, Automated UA Leukoctes 0 David/uL Last Edit by RAYMOND Landers on 08/31/23 16:09 UA Nitrite Negative Last Edit by Alexis Mota Silvia on 08/31/23 16:09 UA Urobilinogen 0.2 mg/dL Last Edit by Alexis Mota Silvia on 08/31/23 16:09 UA Protein 0 mg/dL Last Edit by Alexis Mota [facility] on 08/31/23 16:09 UA pH 7.0 Last Edit by Alexis Mota [facility] on 08/31/23 16:09 UA Blood 0 Neel/uL Last Edit by Alexis Mota [facility] on 08/31/23 16:09 UA Specific [place] 1.015 Last Edit by Alexis Mota Silvia on 08/31/23 16:09 UA Ketone Negative Last Edit by Alexis Mota Silvia on 08/31/23 16:09 UA Bilirubin 0 mg/dL Last Edit by Alexis Mota [facility] on 08/31/23 16:09 UA Glucose 0 mg/dL Last Edit by Alexis Mota Silvia on 08/31/23 16:09 Assessment & Plan Assessment & Plan (1) Interstitial cystitis: Code(s): N30.10 - Interstitial cystitis (chronic) without hematuria (2) Pelvic pain: Code(s): R10.2 - Pelvic and perineal pain Plan Foollow up in 6 months Orders: Orders AMB Urinalysis Automated Today Z13.9 - Encounter for screening, unspecified Patient Instructions: The patient had an opportunity to ask questions regarding treatment plan. All questions were answered. No major barriers to understanding were identified. The patient expressed understanding and agreement with the above treatment plan. The patient is aware they should contact our office by phone for worsening of their current condition or the appearance of new symptoms. Compliance is encouraged with any medications and followup testing that is ordered. It is a privilege to be allowed the opportunity to participate in the urologic care of your patient. If you have any questions or concerns regarding treatment for the above conditions please do not hesitate to contact me. The office telephone contact is [phone]. This note is constructed in part using voice recognition software. While every effort has been made to ensure accuracy him director errors may have been included. Yours sincerely, Carla Mcmillan MD Coding Level of Care Code Est Pt Level 3 (25278) Diagnoses Interstitial cystitis N30.10 Pelvic pain R10.2
== END 2023-08-31 16:21 | disposition home or self-care (01) ==
PROVIDERS: PCP Internal Medicine; Visit Provider Urology
DX: N30.10 Interstitial cystitis (chronic) without hematuria (principal); R10.2 Pelvic and perineal pain; Z13.9 Encounter for screening, unspecified
CPT/HCPCS: 99213

== ENCOUNTER → 2023-08-31 15:50 | Outpatient (BNVA) | payer OTHER, SELFPAY | PROVIDERS: PCP Internal Medicine; Visit Provider Urology | DX: N30.10 Interstitial cystitis (chronic) without hematuria (principal); R10.2 Pelvic and perineal pain | CPT/HCPCS: 81003; 99212 ==

== ENCOUNTER 2023-09-12 14:13 | Outpatient (REF) | payer OTHER, SELFPAY ==
[2023-09-12 16:29] LABS: Free T4 (Free Thyroxine) 0.66 ng/dL (0.71-1.85); Vitamin D 25-OH Total 38.8 ng/mL (>30)
[2023-09-12 21:58] LABS: Folate 8.1 ng/mL (> or = 4.0); Vitamin B12 595 pg/mL (200-900)
[2023-09-13 04:09] LABS: Syphilis Screen Nonreactive (Nonreactive)
[2023-09-13 18:53] LABS: Homocysteine 8.9 umol/L (<10.4)
[2023-09-17 05:29] LABS: Methylmalonic Acid 84 nmol/L (87-318)
== END 2023-09-12 14:14 | disposition home or self-care (01) ==
LOC: HO.LAB 14:13
PROVIDERS: Absent Provider Psychiatry & Neurology Neurology; PCP Internal Medicine; Visit Provider Internal Medicine
DX: D51.0 Vitamin B12 deficiency anemia due to intrinsic factor deficiency (principal); E07.9 Disorder of thyroid, unspecified; E55.9 Vitamin D deficiency, unspecified; A53.9 Syphilis, unspecified
CPT/HCPCS: 36415; 82306; 82607; 82746; 83090; 83921; 84439; 84443; 86780

== ENCOUNTER 2023-10-20 15:28 | Outpatient (AMB) | payer OTHER, SELFPAY ==
--- NOTE | 2023-10-20 15:32 | A.OFFVIS_ITS ---
Intake Visit Reasons: follow up/IC Intake Note: Patient presents today for a follow-up: Meds- Estradiol & Pyridium Allergies to Antibiotic- None Blood Thinner- None Inspector Machine Parts Required: No Accompanied by: Self / Same As Patient Allergies animal dander [ANIMAL HAIR] Allergy (Intermediate, Verified 10/30/23 16:45) ASTHMA, HIVES lactose [Lactose] Allergy (Mild, Verified 10/30/23 16:45) DIARRHEA Medication List - Last Reconciled 10/20/23 by Carla Mcmillan MD albuterol sulfate 90 mcg/actuation (ProAir HFA) 2 puffs inhalation Q4-6H PRN 30 days azelastine 2 sprays intranasal BID bupropion HCl 75 mg PO DAILY 90 days bupropion HCl XL 150 mg PO DAILY cholecalciferol (vitamin D3) 50 mcg PO DAILY dicyclomine 20 mg (2 x 10 mg) PO BID diphenhydramine HCl (Banophen) 50 mg PO BEDTIME PRN epinephrine 0.3 mg IM ONCE PRN escitalopram oxalate 10 mg PO DAILY estradiol (Yuvafem) 10 mcg vaginal Q3D famotidine 20 mg PO BID fexofenadine 180 mg PO DAILY PRN 90 days fluconazole 150 mg PO ONCE fluticasone propion-salmeterol 250-50 mcg/dose (Advair Diskus) 1 inh inhalation Q12H fluticasone propionate 50 mcg/actuation 2 sprays intranasal DAILY hydrocodone-acetaminophen 5-325 mg 1 tab PO TID PRN 30 days hydrocodone-acetaminophen 5-325 mg 1 tab PO TID PRN 30 days ibuprofen 600 mg PO Q8H PRN ibuprofen 800 mg PO Q12H PRN lisinopril 5 mg PO DAILY loperamide (Anti-Diarrheal (loperamide)) 2 mg PO QID PRN 30 days magnesium oxide 400 mg PO DAILY menthol 5% (Cold and Hot (menthol)) 1 patch topical DAILY PRN neo-phsal-hyo 118-10-40.8-36 mg (Uribel) 1 tab PO TID montelukast 10 mg PO BEDTIME 90 days promethazine 25 mg PO Q12H PRN varicella-zoster gE-AS01B (PF) 50 mcg/0.5 mL (Shingrix (PF)) 0.5 mL IM ONCE zolpidem 10 mg PO BEDTIME 90 days HPI Comments Details: 10/20/23--Wendy is being followed for interstitial cystitis. Comorbidity cervical and lumbar radiculopathy. She is tapered off of the Elmiron. She is managed with cystoscopy hydrodistention as needed. Last cystoscopy hydrodistention was on 08/08/2023--she watches her diet. 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 She states that she is going through flare. I have discussed using NSAIDs and Pyridium p.r.n.. Motrin 800 mg every 12 hours p.r.n. sent to the pharmacy. The patient is on a pain management regimen for her radiculopathy condition. Review of chart: 08/31/2023--Wendy is being followed for interstitial cystitis. She is status post repeat cystoscopy hydrodistention on 08/08/2023--cystoscopy findings bladder capacity post post distention 900 mL no glomerulations observed. The patient states that she has been doing better since the cystoscopy. She is aware that she has stress-induced IC flare ups. 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 She is planning to have her moved to an assisted living facility which she feels will be beneficial to her mother and take some of the stress away. She denies dysuria. She denies gross hematuria or urinary incontinence. Urinalysis: Urinalysis negative blood negative. Plan follow-up in 6 months. 07/26/2023-- Wendy is a 53-year-old female who presents today to the office for a follow-up. mother with alzheimers stress exacerbates IC symptoms, urge. She has been doing the bladder instillations with the nursing staff. using Prelief with coffee. 2 tabs. Discussed repeat cysto/hydro. 03/27/23-- Wendy is a 53-year-old female who was diagnosed with IC in 2016 and was started on Elmiron. The patient is currently on 200 mg twice a day. Co-morbidity: cervical spine condition and status post fusion of C3 and C4 in November 2016 and disc replacement between C5 and C6 in March 2019. She is has chronic pain and is prescribed Vicodin by pain management. She presents to the office for 1-month interstitial cystitis follow-up. She is still using the Elmiron 200 mg BID. I discussed tapering off the elmiron due to reported side effects with long-term use. She states when she tried lowering the elmiron use, she had bladder pain. I prescribed hydroxyzine and she states when she increased dose from 25 to 50 mg she had numbness. She states that she has seen Dr. Myles, ophthalmology and was told that there was no retinal damage. States following IC diet. One coffee in the morning during the week. Does not consume tomatoes or citrus foods. Consumes alcohol once a week and mentions occasional worsening of bladder pain due to alcohol. she is using prelief prn, when she consumes pizza, pasta, or alcohol. Evaluation today UA: Blood: negative, leukocytes: negative. Discontinue Elmiron. Ordered liver function testing. Will start bladder instillations with heparin, lidocaine, and solumedrol with nursing staff, daily for 5 days, then bi weekly x 2, then weekly x 8 then reevaluate. FU with me in 3 months [facility] Medical History (Updated 11/08/23 @ 11:51 by Carla Mcmillan MD) IBS (irritable bowel syndrome) Anxiety Depression Asthma Hx of flexible sigmoidoscopy COVID-19 vaccine series completed History of COVID-19 Dental abscess Dental infection Sinusitis, maxillary, chronic Acute sinusitis Diarrhea Cervical radiculopathy ASCUS (atypical squamous cells of undetermined significance) on gynecologic Papanicolaou smear complicating , antepartum Lumbar degenerative disc disease GERD (gastroesophageal reflux disease) Hypercholesterolemia Insomnia Hypertension Interstitial cystitis Degenerative disc disease, cervical Surgical History History of foot surgery Hx of cystoscopy History of surgery History of neck surgery S/P cervical discectomy H/O nasal septoplasty History of ankle surgery Status post laparoscopic surgery History of wisdom tooth extraction Family History Father PTSD (post-traumatic stress disorder) Mental health disorder Mother No problems noted. Maternal Grandmother Breast cancer Maternal Grandfather Myocardial infarction Maternal Uncle Past heart attack Skin cancer Myocardial infarction Other Substance use disorder Social History Housing: House Alcohol intake: current Comment: once a week 2 drinks Patient Tobacco Use Status: Never used Tobacco Years Smoked: quit 2009, CBD, vaping e-Cigarette/Vaping Use: Never Used Second Hand Smoke Exposure: No service: No Current occupational status: unemployed Cognitive needs: No Hearing needs: No Vision needs: Yes Review of Systems Const All systems reviewed & are unremarkable except as noted in HPI and below Reports no additional complaints Eyes Reports no additional complaints ENT Reports no additional complaints Card Reports no additional complaints Resp Reports no additional complaints GI Reports no additional complaints Reports as per HPI Musc Reports no additional complaints Skin/Breast Reports system reviewed and no additional complaints, except as documented Neuro Reports no additional complaints Psych Reports no additional complaints Endo Reports no additional complaints Kyler/Lymph Reports no additional complaints Aller/Immun Reports no additional complaints Results AMB Urinalysis, Automated UA Leukoctes 0 David/uL Last Edit by RAYMOND Landers on 10/20/23 16:04 UA Nitrite Negative Last Edit by RAYMOND Landers on 10/20/23 16:04 UA Urobilinogen 0.2 mg/dL Last Edit by RAYMOND Landers on 10/20/23 16:0 4 UA Protein 15 mg/dL Last Edit by RAYMOND Landers on 10/20/23 16:04 UA pH 6.0 Last Edit by RAYMOND Landers on 10/20/23 16:04 UA Blood 0 Neel/uL Last Edit by RAYMOND Landers on 10/20/23 16:04 UA Specific [place] 1.015 Last Edit by RAYMOND Landers on 10/20/23 16: 04 UA Ketone Negative Last Edit by RAYMOND Landers on 10/20/23 16:04 UA Bilirubin 0 mg/dL Last Edit by RAYMOND Landers on 10/20/23 16:04 UA Glucose 0 mg/dL Last Edit by RAYMOND Landers on 10/20/23 16:04 Results Reviewed Results Reviewed: Laboratory Last Values Urine pH (Auto) 6.0 10/20/23 16:02 Specific [place] (Auto) 1.015 10/20/23 16:02 Urine Protein (Auto) 15 mg/dL 10/20/23 16:02 Glucose (UA)(Auto) 0 mg/dL 10/20/23 16:02 Urine Ketones (Auto) Negative 10/20/23 16:02 Urine Blood (Auto) 0 Neel/uL 10/20/23 16:02 Urine Nitrite (Auto) Negative 10/20/23 16:02 Urine Bilirubin (Auto) 0 mg/dL 10/20/23 16:02 Urine Urobilinogen (Auto) 0.2 mg/dL 10/20/23 16:02 Leukocyte Esterase (Auto) 0 David/uL 10/20/23 16:02 Date of Service: 07/29/22 EXAMINATION: US RETROPERITONEAL LIMITED (RENAL ONLY) FINDINGS: RIGHT KIDNEY: 10.8 x 4.7 x 5.9 cm (SAG x AP x TRV). The kidney is normal in size, contour, and echogenicity. Renal cortical thickness is normal. No calculi or focal parenchymal lesions. No hydronephrosis. LEFT KIDNEY: 10.5 x 5.5 x 4.8 cm (SAG x AP x TRV). The kidney is normal in size, contour, and echogenicity. Renal cortical thickness is normal. No calculi or focal parenchymal lesions. No hydronephrosis. IMPRESSION: Normal-appearing kidneys. Assessment & Plan Assessment & Plan (1) Interstitial cystitis: Code(s): N30.10 - Interstitial cystitis (chronic) without hematuria Category: Medical (2) Pelvic pain: Code(s): R10.2 - Pelvic and perineal pain Category: Medical (3) Bladder pain: Code(s): R39.89 - Other symptoms and signs involving the genitourinary system Category: Medical Plan Follow-up in 6 months. Motrin 800 mg p.r.n. prescribed Orders: Orders AMB Urinalysis Automated 10/20/23 Z13.9 - Encounter for screening, unspecified Medications: New ibuprofen 800 mg PO Q12H PRN 30 tabs 2RF pain Patient Instructions: The patient had an opportunity to ask questions regarding treatment plan. The patient expressed understanding and agreement with the above treatment plan. The patient is aware they should contact our office by phone for worsening of th eir current condition or the appearance of new symptoms. Compliance is encouraged with any medications and followup testing that is ordered. It is a privilege to be allowed the opportunity to participate in the urologic care of your patient. If you have any questions or concerns regarding treatment for the above conditions please do not hesitate to contact me. The office telephone contact is [phone]. This note is constructed in part using voice recognition software. While every effort has been made to ensure accuracy backend java developer errors may have been included. Yours sincerely, Carla Mcmillan MD Coding Level of Care Code Est Pt Level 4 (67929) Diagnoses Interstitial cystitis N30.10 Pelvic pain R10.2 Bladder pain R39.89
== END 2023-10-20 16:15 | disposition home or self-care (01) ==
PROVIDERS: PCP Internal Medicine; Visit Provider Urology
DX: N30.10 Interstitial cystitis (chronic) without hematuria (principal); R10.2 Pelvic and perineal pain; R39.89 Other symptoms and signs involving the genitourinary system
CPT/HCPCS: 99214

== ENCOUNTER → 2023-10-20 15:28 | Outpatient (BNVA) | payer OTHER, SELFPAY | PROVIDERS: PCP Internal Medicine; Visit Provider Urology | DX: N30.10 Interstitial cystitis (chronic) without hematuria (principal); R10.2 Pelvic and perineal pain; R39.89 Other symptoms and signs involving the genitourinary system | CPT/HCPCS: 81003; 99212 ==

== ENCOUNTER 2023-10-30 16:40 | Outpatient (AMB) | payer OTHER, SELFPAY ==
[2023-10-30 16:45] VITALS: BP 132/88; PULSE 102; O2SAT 98; BMI 25.5
--- NOTE | 2023-10-30 16:45 | MHC.PC.OV ---
Vital Signs 10/30/23 16:45 Height 5 ft 5 in Weight 153 lb 0.4 oz BMI 25.5 BP 132/88 Blood Pressure Location Lt brachial Position Sitting Pulse 102 H Pulse Source Pulse Oximeter Pulse Oximetry (%) 98 Oxygen Delivery Method Room Air Intake Visit Reasons: CErvical disc disease Instructor Adjunct Surgical Technician Required: No Allergies animal dander [ANIMAL HAIR] Allergy (Intermediate, Verified 10/30/23 16:45) ASTHMA, HIVES lactose [Lactose] Allergy (Mild, Verified 10/30/23 16:45) DIARRHEA Tobacco use date assessed: 10/30/23 Dental Screening Dental Screen Date: 07/25/23 HPI CErvical disc disease HPI Details 53-year-old female with interstitial cystitis followed up by Urology cervical degenerative disc disease on narcotic pain medication hypertension hypercholesterolemia GERD generalized anxiety disorder asthma coming in for follow-up. Last seen in 08/09/2023 patient's colonoscopy is up-to-date mammogram is up-to-date. Patient has seen Neurology mild neurocognitive . PAtient was told not to do the hydrodistention < 6 months. - related symptoms from stress. takes magnesium for muscles [facility] Medical History (Updated 10/30/23 @ 17:27 by Carrie Marshall MD) IBS (irritable bowel syndrome) Anxiety Depression Asthma Hx of flexible sigmoidoscopy COVID-19 vaccine series completed History of COVID-19 Dental abscess Dental infection Sinusitis, maxillary, chronic Acute sinusitis Diarrhea Cervical radiculopathy ASCUS (atypical squamous cells of undetermined significance) on gynecologic Papanicolaou smear complicating , antepartum Lumbar degenerative disc disease GERD (gastroesophageal reflux disease) Hypercholesterolemia Insomnia Hypertension Interstitial cystitis Degenerative disc disease, cervical Surgical History History of foot surgery Hx of cystoscopy History of surgery History of neck surgery S/P cervical discectomy H/O nasal septoplasty History of ankle surgery Status post laparoscopic surgery History of wisdom tooth extraction Family History Father PTSD (post-traumatic stress disorder) Mental health disorder Mother No problems noted. Maternal Grandmother Breast cancer Maternal Grandfather Myocardial infarction Maternal Uncle Past heart attack Skin cancer Myocardial infarction Other Substance use disorder Social History Housing: House Alcohol intake: current Comment: once a week 2 drinks Patient Tobacco Use Status: Never used Tobacco Years Smoked: quit 2009, CBD, vaping e-Cigarette/Vaping Use: Never Used Second Hand Smoke Exposure: No service: No Current occupational status: unemployed Cognitive needs: No Hearing needs: No Vision needs: Yes Questionnaire Thrive Questionnaire Date Thrive assessed: 07/25/23 AUDIT C Alcohol Use Questionnaire (AUDIT-C) 1. How often do you have a drink containing alcohol?: 2-3 times a week 2. How many drinks containing alcohol do you have on a typical day when you are drinking?: 1 or 2 3. How often do you have six or more drinks on one occasion?: Never Total Score: 3 SURENDRA-7 AMB Questionnaire SURENDRA-7 Date SURENDRA - 7 assessed: 07/25/23 Source: Developed by Drs. Vineet Centeno, Eri Gaming, Brent Biswas and colleagues, with an educational mulugeta from [employer]. Physical exam (Primary Care) Vital Signs: Last Vital Signs Pulse 102 H 10/30/23 16:45 BP 132/88 10/30/23 16:45 Pulse Ox 98 10/30/23 16:45 Oxygen Delivery Method Room Air 10/30/23 16:45 BMI result Body Mass Index 25.5 Tobacco/Smoking Status: Tobacco use Status Tobacco use date assessed 10/30/23 10/30/23 16:47 Patient Tobacco Use Status Never used Tobacco 10/30/23 16:47 e-Cigarette/Vaping Use Never Used 10/30/23 16:47 Thrive Assessment: Date of Thrive Assessment Date Thrive assessed 07/25/23 10/30/23 16:47 Const General: alert; No acute distress Eyes Conjunctivae: conjunctivae normal Resp Auscultation: clear to auscultation bilaterally Cardio Rate: regular rate Rhythm: regular rhythm GI Inspection: Yes normal to inspection Extrem General: Yes normal to inspection and No edema Assessment and Plan Assessment & Plan (1) Interstitial cystitis: Code(s): N30.10 - Interstitial cystitis (chronic) without hematuria Plan: Patient follows up with urology and had hydrodistention in 08/09/2023 (2) Degenerative disc disease, cervical: Code(s): M50.30 - Other cervical disc degeneration, unspecified cervical region Plan: Narcotic pain meds: Is being prescribed with the understanding that these medications are potentially addictive and should be used only when absolutely necessary and must always be secured. Any remaining pills should be safely disposed off appropriately. Patient is advised that narcotics can impaired judgment and one should not drive or operate heavy machinery while taking these medications. Never share these medications with anybody and do not leave them unattended. They will not be replaced under any circumstances. (3) Hypertension: Code(s): I10 - Essential (primary) hypertension Qualifiers: Hypertension type: essential hypertension Qualified Code(s): I10 - Essential (primary) hypertension Plan: Continue with blood pressure medication. Decrease salt intake and exercise on lisinopril 5 mg once a day (4) Hypercholesterolemia: Code(s): E78.00 - Pure hypercholesterolemia, unspecified Plan: Avoid fried foods, chicken skin, eggs, butter margarine, pastries and meat. Be it pork or beef they have a lot of cholesterol LDL goal of less than 130 and triglyceride of less than 150 08/09/2023 blood work is within normal limits (5) GERD (gastroesophageal reflux disease): Code(s): K21.9 - Gastro-esophageal reflux disease without esophagitis Plan: Avoid the foods that causes that usually spicy foods, tomato products, juices, coffee, soda and foods that your sensitive to. After eating do not lie down, allow 3-4 hours before in lie down. And keep the head of bed above 30 degrees to avoid the acid from going up. (6) Asthma: Code(s): J45.909 - Unspecified asthma, uncomplicated Qualifiers: Asthma complication type: uncomplicated Asthma persistence: intermittent Asthma severity: mild Qualified Code(s): J45.20 - Mild intermittent asthma, uncomplicated Plan: Continue with the inhaler albuterol and Advair (7) Generalized anxiety disorder: Comment: will try to get own counsellor (07/2022) Code(s): F41.1 - Generalized anxiety disorder Plan: referral to counselling/psychiatric (8) Lumbar degenerative disc disease: Comment: Left foot drop with left calf atrophy Code(s): M51.36 - Other intervertebral disc degeneration, lumbar region Plan: referral for therapy Orders: Referrals Psychiatry Referral F41.1 - Generalized anxiety disorder Pain Management Referral M50.30 - Other cervical disc degeneration, unspecified cervical region, M51.36 - Other intervertebral disc degeneration, lumbar region Medications: New epinephrine 0.3 mg (0.3 mL) IM ONCE PRN 2 ea 0RF Allergic Reaction J45.20 - Mild intermittent asthma, uncomplicated Discontinued hydrocodone-acetaminophen 5-325 mg Discontinued Reason: Duplicate 1 tab PO TID 30 days PRN 90 tabs 0RF pain M50.30 - Other cervical disc degeneration, unspecified cervical region, N30.10 - Interstitial cystitis (chronic) without hematuria Coding Level of Care Code Est Pt Level 4 (81735) Complex EM visit Add On G2211 Diagnoses Interstitial cystitis N30.10 Degenerative disc disease, cervical M50.30 Essential hypertension I10 Hypertension type: essential hypertension Hypercholesterolemia E78.00 GERD (gastroesophageal reflux disease) K21.9 Mild intermittent asthma without complication J45.20 Asthma complication type: uncomplicated Asthma persistence: intermittent Asthma severity: mild Generalized anxiety disorder F41.1 Lumbar degenerative disc disease M51.36
== END 2023-10-30 17:44 | disposition home or self-care (01) ==
PROVIDERS: PCP Internal Medicine; Visit Provider Internal Medicine
DX: N30.10 Interstitial cystitis (chronic) without hematuria (principal); M50.30 Other cervical disc degeneration, unspecified cervical region; I10 Essential (primary) hypertension; E78.00 Pure hypercholesterolemia, unspecified; K21.9 Gastro-esophageal reflux disease without esophagitis; J45.20 Mild intermittent asthma, uncomplicated; F41.1 Generalized anxiety disorder; M51.36 Other intervertebral disc degeneration, lumbar region
CPT/HCPCS: 99214; G2211

== ENCOUNTER 2023-11-10 09:34 | Outpatient (REF) | payer OTHER, SELFPAY ==
--- NOTE | ~2023-11-10 | FL_ITS ---
EXAMINATION: XR FLUOROSCOPY UPPER GI WITH AIR CLINICAL INFORMATION: Dysphagia COMPARISON: None TECHNIQUE: Fluoroscopic air contrast upper GI examination was performed utilizing standard techniques with thin and thick barium and effervescent granules. Numerous spot images were obtained. FINDINGS: Status post ACDF C3-C4, C5-C6 with ventral plate and interbody screws. Associated intervertebral body disc grafts at these levels. No obvious complication. Mandibular dental implant noted. Lateral cine images of the oropharynx and hypopharynx demonstrate normal swallow mechanism with normal epiglottic inversion and soft palate elevation. No tracheal penetration, glottic or subglottic aspiration identified. No nasopharyngeal reflux present. Hypopharyngeal structures appear normal without evidence of mass or diverticulum. There is mild cricopharyngeal achalasia present. Dual and single contrast images of the esophagus demonstrate a normal caliber and contour. There is felinization of the mid and distal esophageal mucosa. No evidence of stricture, mass, or ulcerations identified. Esophageal peristalsis is mildly disorganized. No evidence of hiatus hernia identified. Gastroesophageal reflux is seen up to the aortic arch. Dual contrast and single contrast images of the stomach demonstrated normal contour and mucosal pattern without evidence of mass, ulceration, or other abnormality. Contrast freely passed into the gastric antrum and duodenal bulb without delay. Single and air-contrast images of the duodenal bulb demonstrate no abnormality. The duodenal sweep has a normal appearance, course, and mucosal fold appearance. The imaged proximal jejunum has a normal fold pattern and caliber. FLUOROSCOPY TIME: 3 minutes 20 seconds Number of Spot Images: 12 Number of Cine: 13 DOSE AREA PRODUCT: 1643 uGy-m2 (microgray-meter squared) FL/FL upper GI w air w Ba Swallow IMPRESSION: 1. Mild cricopharyngeal achalasia. 2. Felinization of the mid distal esophageal mucosa. This is a benign finding associated chronic gastroesophageal reflux. 3. Mild esophageal dysmotility. 4. Moderate gastroesophageal reflux . 5. Status post ACDF C3-C4, C5-C6. This procedure was performed by Tk Thayer PA-C, and supervised by Dr. Dale
== END 2023-11-10 09:35 | disposition home or self-care (01) ==
LOC: HO.XRAY 09:34
PROVIDERS: PCP Internal Medicine; Visit Provider Internal Medicine
DX: R13.10 Dysphagia, unspecified (principal)
CPT/HCPCS: 74246

== ENCOUNTER → 2023-11-10 09:36 | Outpatient (BNV) | payer OTHER, SELFPAY | PROVIDERS: PCP Internal Medicine; Visit Provider Physician Assistant Surgical | DX: R13.10 Dysphagia, unspecified (principal) | CPT/HCPCS: 74246 ==

== ENCOUNTER 2023-12-07 15:40 | Outpatient (AMB) | payer OTHER, SELFPAY ==
--- NOTE | 2023-12-07 15:16 | MHC.OFFVIS ---
Intake Visit Reasons: medication discussion Allergies animal dander [ANIMAL HAIR] Allergy (Intermediate, Verified 10/30/23 16:45) ASTHMA, HIVES lactose [Lactose] Allergy (Mild, Verified 10/30/23 16:45) DIARRHEA Medication List - Last Reconciled 12/07/23 by Carla Mcmillan MD albuterol sulfate 90 mcg/actuation 2 puffs inhalation Q4-6H PRN 30 days azelastine 2 sprays intranasal BID bupropion HCl 75 mg PO DAILY 90 days bupropion HCl XL 150 mg PO DAILY cholecalciferol (vitamin D3) 50 mcg PO DAILY dicyclomine 20 mg (2 x 10 mg) PO BID diphenhydramine HCl (Banophen) 50 mg PO BEDTIME PRN epinephrine 0.3 mg (0.3 mL) IM ONCE PRN escitalopram oxalate 10 mg PO DAILY estradiol (Yuvafem) 10 mcg vaginal Q3D famotidine 20 mg PO BID fexofenadine 180 mg PO DAILY PRN 90 days fluconazole 150 mg PO ONCE fluticasone propion-salmeterol 250-50 mcg/dose (Advair Diskus) 1 inh inhalation Q12H fluticasone propionate 50 mcg/actuation 2 sprays intranasal DAILY gabapentin 100 mg PO TID hydrocodone-acetaminophen 5-325 mg 1 tab PO TID PRN 30 days ibuprofen 800 mg PO Q12H PRN lisinopril 5 mg PO DAILY loperamide (Anti-Diarrheal (loperamide)) 2 mg PO QID PRN 30 days magnesium oxide 400 mg PO DAILY menthol 5% (Cold and Hot (menthol)) 1 patch topical DAILY PRN [id number] 118-10-40.8-36 mg (Uribel) 1 tab PO TID montelukast 10 mg PO BEDTIME 90 days pentosan polysulfate sodium (Elmiron) 100 mg PO TID promethazine 25 mg PO Q12H PRN varicella-zoster [id number] (PF) 50 mcg/0.5 mL (Shingrix (PF)) 0.5 mL IM ONCE zolpidem 10 mg PO BEDTIME 90 days HPI Comments Details: 12/07/23--Telehealth CHANELDorita is being followed for interstitial cystitis. Comorbidity cervical and lumbar radiculopathy. She is tapered off of the Elmiron. She is managed with cystoscopy hydrodistention as needed. She watches her diet. And she is aware of her IC stressors. She complains that her pain symptoms have been worsening off of the Elmiron. Discussed restarting elmiron and will also add gabapentin. Review of chart: 10/20/23--Wendy is being followed for interstitial cystitis. Comorbidity cervical and lumbar radiculopathy. She is tapered off of the Elmiron. She is managed with cystoscopy hydrodistention as needed. Last cystoscopy hydrodistention was on 08/08/2023--she watches her diet. 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 She states that she is going through flare. I have discussed using NSAIDs and Pyridium p.r.n.. Motrin 800 mg every 12 hours p.r.n. sent to the pharmacy. The patient is on a pain management regimen for her radiculopathy condition. 08/31/2023--Wendy is being followed for interstitial cystitis. She is status post repeat cystoscopy hydrodistention on 08/08/2023--cystoscopy findings bladder capacity post post distention 900 mL no glomerulations observed. The patient states that she has been doing better since the cystoscopy. She is aware that she has stress-induced IC flare ups. 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 She is planning to have her moved to an assisted living facility which she feels will be beneficial to her mother and take some of the stress away. She denies dysuria. She denies gross hematuria or urinary incontinence. Urinalysis: Urinalysis negative blood negative. Plan follow-up in 6 months. 07/26/2023-- Wendy is a 53-year-old female who presents today to the office for a follow-up. mother with alzheimers stress exacerbates IC symptoms, urge. She has been doing the bladder instillations with the nursing staff. using Prelief with coffee. 2 tabs. Discussed repeat cysto/hydro. 03/27/23-- Wendy is a 53-year-old female who was diagnosed with IC in 2015 and was started on Elmiron. The patient is currently on 200 mg twice a day. Co-morbidity: cervical spine condition and status post fusion of C3 and C4 in November 2016 and disc replacement between C5 and C6 in March 2019. She is has chronic pain and is prescribed Vicodin by pain management. She presents to the office for 1-month interstitial cystitis follow-up. She is still using the Elmiron 200 mg BID. 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 She states when she tried lowering the elmiron use, she had bladder pain. I prescribed hydroxyzine and she states when she increased dose from 25 to 50 mg she had numbness. She states that she has seen Dr. Myles, ophthalmology and was told that there was no retinal damage. States following IC diet. One coffee in the morning during the week. Does not consume tomatoes or citrus foods. Consumes alcohol once a week and mentions occasional worsening of bladder pain due to alcohol. she is using prelief prn, when she consumes pizza, pasta, or alcohol. Evaluation today UA: Blood: negative, leukocytes: negative. Discontinue Elmiron. Ordered liver function testing. Will start bladder instillations with heparin, lidocaine, and solumedrol with nursing staff, daily for 5 days, then bi weekly x 2, then weekly x 8 then reevaluate. FU with me in 3 months [facility] Medical History IBS (irritable bowel syndrome) Anxiety Depression Asthma Hx of flexible sigmoidoscopy COVID-19 vaccine series completed History of COVID-19 Dental abscess Dental infection Sinusitis, maxillary, chronic Acute sinusitis Diarrhea Cervical radiculopathy ASCUS (atypical squamous cells of undetermined significance) on gynecologic Papanicolaou smear complicating , antepartum Lumbar degenerative disc disease GERD (gastroesophageal reflux disease) Hypercholesterolemia Insomnia Hypertension Interstitial cystitis Degenerative disc disease, cervical Surgical History History of foot surgery Hx of cystoscopy History of surgery History of neck surgery S/P cervical discectomy H/O nasal septoplasty History of ankle surgery Status post laparoscopic surgery History of wisdom tooth extraction Family History Father PTSD (post-traumatic stress disorder) Mental health disorder Mother No problems noted. Maternal Grandmother Breast cancer Maternal Grandfather Myocardial infarction Maternal Uncle Past heart attack Skin cancer Myocardial infarction Other Substance use disorder Social History Housing: House Alcohol intake: current Comment: once a week 2 drinks Patient Tobacco Use Status: Never used Tobacco Years Smoked: quit 2009, CBD, vaping e-Cigarette/Vaping Use: Never Used Second Hand Smoke Exposure: No service: No Current occupational status: unemployed Cognitive needs: No Hearing needs: No Vision needs: Yes Review of Systems Const All systems reviewed & are unremarkable except as noted in HPI and below Reports no additional complaints Eyes Reports no additional complaints ENT Reports no additional complaints Card Reports no additional complaints Resp Reports no additional complaints GI Reports no additional complaints Reports as per HPI Musc Reports no additional complaints Skin/Breast Reports system reviewed and no additional complaints, except as documented Neuro Reports no additional complaints Psych Reports no additional complaints Endo Reports no additional complaints Kyler/Lymph Reports no additional complaints Aller/Immun Reports no additional complaints Telehealth Telehealth Telehealth Platform: [employer] Location of provider rendering services: practice address Location of patient: address on file Patient Identification confirmed using: Name, : Yes Telehealth method: video Patient verbally consented to treatment: Yes Patient verbally consented to billing insurance company: Yes Patient informed of any privacy concerns related to visit: Yes Results Reviewed Results Reviewed: Date of Service: 07/29/22 EXAMINATION: US RETROPERITONEAL LIMITED (RENAL ONLY) FINDINGS: RIGHT KIDNEY: 10.8 x 4.7 x 5.9 cm (SAG x AP x TRV). The kidney is normal in size, contour, and echogenicity. Renal cortical thickness is normal. No calculi or focal parenchymal lesions. No hydronephrosis. LEFT KIDNEY: 10.5 x 5.5 x 4.8 cm (SAG x AP x TRV). The kidney is normal in size, contour, and echogenicity. Renal cortical thickness is normal. No calculi or focal parenchymal lesions. No hydronephrosis. IMPRESSION: Normal-appearing kidneys. Assessment & Plan Assessment & Plan (1) Interstitial cystitis: Code(s): N30.10 - Interstitial cystitis (chronic) without hematuria Category: Medical (2) Pelvic pain: Code(s): R10.2 - Pelvic and perineal pain Category: Medical (3) Bladder pain: Code(s): R39.89 - Other symptoms and signs involving the genitourinary system Category: Medical Plan Resume elmiron 100mg tid, trial gabapentin 100 mg tid Medications: New gabapentin 100 mg PO TID 90 caps 0RF pentosan polysulfate sodium (Elmiron) 100 mg PO TID 90 caps 3RF Patient Instructions: The patient had an opportunity to ask questions regarding treatment plan. The patient expressed understanding and agreement with the above treatment plan. The patient is aware they should contact our office by phone for worsening of their current condition or the appearance of new symptoms. Compliance is encouraged with any medications and followup testing that is ordered. It is a privilege to be allowed the opportunity to participate in the urologic care of your patient. If you have any questions or concerns regarding treatment for the above conditions please do not hesitate to contact me. The office telephone contact is [phone]. This note is constructed in part using voice recognition software. While every effort has been made to ensure accuracy base cloth inspector errors may have been included. Yours sincerely, Carla Mcmillan MD Coding Level of Care Code Tele Est Pt Level 4 (53268) Diagnoses Interstitial cystitis N30.10 Pelvic pain R10.2 Bladder pain R39.89
== END 2023-12-07 15:49 | disposition home or self-care (01) ==
LOC: HO.HUSH 15:40
PROVIDERS: PCP Internal Medicine; Visit Provider Urology
DX: N30.10 Interstitial cystitis (chronic) without hematuria (principal); R10.2 Pelvic and perineal pain; R39.89 Other symptoms and signs involving the genitourinary system
CPT/HCPCS: 99214

== ENCOUNTER → 2023-12-07 15:40 | Outpatient (BNVA) | payer OTHER, SELFPAY | PROVIDERS: PCP Internal Medicine; Visit Provider Urology ==

== ENCOUNTER 2024-02-26 16:53 | Outpatient (AMB) | payer OTHER, SELFPAY ==
--- NOTE | 2024-02-26 17:08 | A.OFFPC_ITS ---
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 Accompanied by: Self / Same As Patient Allergies animal dander [ANIMAL HAIR] Allergy (Intermediate, Verified 02/26/24 17:37) ASTHMA, HIVES lactose [Lactose] Allergy (Mild, Verified 02/26/24 17:37) DIARRHEA Medication List - Last Reconciled 02/26/24 by Carrie Marshall MD albuterol sulfate 90 mcg/actuation (Ventolin HFA) 2 puffs PO Q4-6H PRN azelastine 2 sprays intranasal BID bupropion HCl 75 mg PO DAILY 90 days bupropion HCl XL 150 mg PO DAILY cholecalciferol (vitamin D3) 50 mcg PO DAILY dicyclomine 20 mg (2 x 10 mg) PO BID diphenhydramine HCl (Banophen) 50 mg PO BEDTIME PRN epinephrine 0.3 mg (0.3 mL) IM ONCE PRN escitalopram oxalate 10 mg PO DAILY estradiol (Yuvafem) 10 mcg vaginal Q3D fexofenadine 180 mg PO DAILY PRN 90 days fluconazole 150 mg PO ONCE fluticasone propion-salmeterol 250-50 mcg/dose (Advair Diskus) 1 inh inhalation Q12H fluticasone propionate 50 mcg/actuation 2 sprays intranasal DAILY gabapentin 100 mg PO TID hydrocodone-acetaminophen 5-325 mg 1 tab PO TID PRN 30 days ibuprofen 800 mg PO Q12H PRN lisinopril 5 mg PO DAILY loperamide (Anti-Diarrheal (loperamide)) 2 mg PO QID PRN 30 days magnesium oxide 400 mg PO DAILY menthol 5% (Cold and Hot (menthol)) 1 patch topical DAILY PRN [id number] 118-10-40.8-36 mg (Uribel) 1 tab PO TID montelukast 10 mg PO BEDTIME 90 days omeprazole 20 mg PO DAILY pentosan polysulfate sodium (Elmiron) 100 mg PO TID promethazine 25 mg PO Q12H PRN varicella-zoster [id number]-[id number] (PF) 50 mcg/0.5 mL (Shingrix (PF)) 0.5 mL IM ONCE zolpidem 10 mg PO BEDTIME 90 days Tobacco use date assessed: 10/30/23 Dental Screening Dental Screen Date: 07/25/23 HPI lumbar DDD HPI Details [age] year old female with a history of cervical degenerative disc disease on narcotic pain medication p.r.n. hypertension hypercholesterolemia GERD asthma generalized anxiety disorder and interstitial cystitis last seen in 08/09/2023. Patient's colonoscopy was done in 2018 mammogram is due this month. Review of the notes has been follow-up with urology was seen in December 06 through Telehealth tapered off elmiron and was treated with hydrodistention discussion regarding restarting amiodarone and gabapentin. Patient had dysphagia and had barium swallow done showing mild cricopharyngeal achalasia mid distal esophageal mucosa showing chronic gastroesophageal reflux with dysmotility and moderate reflux. Also received notes from Neurology diagnosis of mild neurocognitive disorder but did not believe that it is from dementia. concern mom fell and had cervical fracture/ has clinical trial for dementia in [place]- received form that needs filling. PAtient is getting TMS treatment. [facility] Medical History (Updated 02/26/24 @ 20:05 by Carrie Marshall MD) IBS (irritable bowel syndrome) Anxiety Depression Asthma Hx of flexible sigmoidoscopy COVID-19 vaccine series completed History of COVID-19 Dental abscess Dental infection Sinusitis, maxillary, chronic Acute sinusitis Diarrhea Cervical radiculopathy ASCUS (atypical squamous cells of undetermined significance) on gynecologic Papanicolaou smear complicating , antepartum Lumbar degenerative disc disease GERD (gastroesophageal reflux disease) Hypercholesterolemia Insomnia Hypertension Interstitial cystitis Degenerative disc disease, cervical Surgical History History of foot surgery Hx of cystoscopy History of surgery History of neck surgery S/P cervical discectomy H/O nasal septoplasty History of ankle surgery Status post laparoscopic surgery History of wisdom tooth extraction Family History Father PTSD (post-traumatic stress disorder) Mental health disorder Mother No problems noted. Maternal Grandmother Breast cancer Maternal Grandfather Myocardial infarction Maternal Uncle Past heart attack Skin cancer Myocardial infarction Other Substance use disorder Social History Housing: House Alcohol intake: current Comment: once a week 2 drinks Patient Tobacco Use Status: Never used Tobacco Years Smoked: quit 2009, CBD, vaping e-Cigarette/Vaping Use: Never Used Second Hand Smoke Exposure: No service: No Current occupational status: unemployed Cognitive needs: No Hearing needs: No Vision needs: Yes Questionnaire PHQ-9 Over the last 2 weeks, how often have you been bothered by any of the following problems? 1. Little interest or pleasure in doing things: not at all 2. Feeling down, depressed, or hopeless: not at all 3. Trouble falling or staying asleep, or sleeping too much: not at all 4. Feeling tired or having little energy: not at all 5. Poor appetite or overeating: not at all 6. Feeling bad about yourself - or that you are a failure or have let yourself or your family down: not at all 7. Trouble concentrating on things, such as reading the newspaper or watching television: not at all 8. Moving or speaking so slowly that other people could have noticed. Or the opposite - being so fidgety or restless that you have been moving around a lot more than usual: not at all 9. Thoughts that you would be better off or of hurting yourself in some way: not at all Total score: 0 Depression Screening Interpretation: Negative Depression Screening Done: Yes Source: Developed by Drs. Vineet Centeno, Brent Javier and colleagues, with an educational mulugeta from [employer]. Thrive Questionnaire Date Thrive assessed: 07/25/23 Are you currently unemployed and looking for a job?: No SURENDRA-7 AMB Questionnaire SURENDRA-7 Date SURENDRA - 7 assessed: 07/25/23 Source: Developed by Eri Whitt Kurt Kroenke and colleagues, with an educational mulugeta from [employer]. Physical exam (Primary Care) Vital Signs: Last Vital Signs Pulse 82 02/26/24 17:19 BP 132/90 H 02/26/24 17:19 Pulse Ox 98 02/26/24 17:19 Oxygen Delivery Method Room Air 02/26/24 17:19 BMI result Body Mass Index 26.3 Tobacco/Smoking Status: Tobacco use Status Tobacco use date assessed 10/30/23 02/26/24 17:08 Patient Tobacco Use Status Never used Tobacco 02/26/24 17:08 e-Cigarette/Vaping Use Never Used 02/26/24 17:08 PHQ-9: PHQ-9 Score PHQ-9: Total score 0 02/26/24 17:57 Depression Screening Interpretation: Negative Thrive Assessment: Date of Thrive Assessment Date Thrive assessed 07/25/23 02/26/24 17:08 Const General: alert; No acute distress Eyes Conjunctivae: conjunctivae normal Resp Auscultation: clear to auscultation bilaterally Cardio Rate: regular rate Rhythm: regular rhythm GI Inspection: Yes normal to inspection Extrem General: Yes normal to inspection and No edema Office Procedures Flu Questionnaire Does the patient have a severe egg allergy?: No Does the patient have severe life threatening allergies?: No Does the patient have a fever or illness today?: No Has the patient ever had Guillain-[place] Syndrome?: No Has the patient ever had any past reaction to a flu shot?: No Immunizations Fluarix Triv [id number] (PF) 45 mcg (15 mcg x 3)/0.5 mL IM syringe Performing Provider: Carrie Marshall MD [facility] Administered by: ADE Buchanan on 02/26/24 17:29 Dose Route Admin Location Dispensed Lot Number Expiration Date NDC [place] 0.5 mL IM Right Gluteus Castro 0.5 mL [id number] 11/18/24 [id number] [employer] VIS Given Date VIS Provided VIS Publication Date 02/26/24 Single Vaccine 20 Eligibility Eligibility Date Funding Source Not [facility] Eligible 02/26/24 Private Coding Level of Care Code Est Pt Level 4 (41980) Diagnoses Interstitial cystitis N30.10 Essential hypertension I10 Hypertension type: essential hypertension Hypercholesterolemia E78.00 Gastroesophageal reflux disease without esophagitis K21.9 Esophagitis presence: without esophagitis Mild intermittent asthma without complication J45.20 Asthma complication type: uncomplicated Asthma persistence: intermittent Asthma severity: mild Generalized anxiety disorder F41.1 Cervical radiculopathy M54.12 Degeneration of intervertebral disc of lumbar region with discogenic back pain and lower extremity pain M51.362 Disc-related pain type: discogenic back pain and lower extremity pain Assessment & Plan Assessment & Plan (1) Interstitial cystitis: Code(s): N30.10 - Interstitial cystitis (chronic) without hematuria Category: Medical Plan: Patient is followed up by Urology and has been placed back on Elmiron and gabapentin (2) Hypertension: Code(s): I10 - Essential (primary) hypertension Category: Medical Qualifiers: Hypertension type: essential hypertension Qualified Code(s): I10 - Essential (primary) hypertension Plan: Continue with blood pressure medication. Decrease salt intake and exercise on lisinopril 5 mg once a day (3) Hypercholesterolemia: Code(s): E78.00 - Pure hypercholesterolemia, unspecified Category: Medical Plan: Avoid fried foods, chicken skin, eggs, butter margarine, pastries and meat. Be it pork or beef they have a lot of cholesterol LDL goal of less than 130 and triglyceride of less than 150 (4) GERD (gastroesophageal reflux disease): Code(s): K21.9 - Gastro-esophageal reflux disease without esophagitis Category: Medical Qualifiers: Esophagitis presence: without esophagitis Qualified Code(s): K21.9 - Gastro-esophageal reflux disease without esophagitis Plan: Avoid the foods that causes that usually spicy foods, tomato products, juices, coffee, soda and foods that your sensitive to. After eating do not lie down, allow 3-4 hours before in lie down. And keep the head of bed above 30 degrees to avoid the acid from going up. (5) Asthma: Code(s): J45.909 - Unspecified asthma, uncomplicated Category: Medical Qualifiers: Asthma complication type: uncomplicated Asthma persistence: intermittent Asthma severity: mild Qualified Code(s): J45.20 - Mild intermitte nt asthma, uncomplicated Plan: Continue with albuterol inhaler and Advair (6) Generalized anxiety disorder: Comment: will try to get own counsellor (07/2022)TMS (02/2024) [address] [phone] Code(s): F41.1 - Generalized anxiety disorder Category: Medical Plan: Continue with present medication. PAtient has a prescriber right now and will have a TMS done (7) Cervical radiculopathy: Comment: September 2016 status post injection PS S C6 MRI nerve impingement October 2016, left cervical facet block September 2018 Code(s): M54.12 - Radiculopathy, cervical region Category: Medical Plan: Narcotic pain meds: Is being prescribed with the understanding that these medications are potentially addictive and should be used only when absolutely necessary and must always be secured. Any remaining pills should be safely disposed off appropriately. Patient is advised that narcotics can impaired judgment and one should not drive or operate heavy machinery while taking these medications. Never share these medications with anybody and do not leave them unattended. They will not be replaced under any circumstances. (8) Lumbar degenerative disc disease: Comment: Left foot drop with left calf atrophy Code(s): M51.36 - Other intervertebral disc degeneration, lumbar region Category: Medical Qualifiers: Disc-related pain type: discogenic back pain and lower extremity pain Qualified Code(s): M51.362 - Other intervertebral disc degeneration, lumbar region with discogenic back pain and lower extremity pain Plan: Will refer for pain management Orders: Orders Influenza [id number] Immunization Today Z23 - Encounter for immunization Referrals Gastroenterology Referral K21.9 - Gastro-esophageal reflux disease without esophagitis Pain Management Referral M51.36 - Other intervertebral disc degeneration, lumbar region, M54.12 - Radiculopathy, cervical region Medications: New omeprazole 20 mg PO DAILY 30 caps 2RF K21.9 - Gastro-esophageal reflux disease without esophagitis Discontinued famotidine Discontinued Reason: Ancillary Entered New Order 20 mg PO BID 180 tabs 3RF
[2024-02-26 17:19] VITALS: BP 132/90; PULSE 82; O2SAT 98; BMI 26.3
== END 2024-02-26 18:12 | disposition home or self-care (01) ==
PROVIDERS: PCP Internal Medicine; Visit Provider Internal Medicine
DX: N30.10 Interstitial cystitis (chronic) without hematuria (principal); I10 Essential (primary) hypertension; E78.00 Pure hypercholesterolemia, unspecified; K21.9 Gastro-esophageal reflux disease without esophagitis; J45.20 Mild intermittent asthma, uncomplicated; F41.1 Generalized anxiety disorder; M54.12 Radiculopathy, cervical region; M51.362 Other intervertebral disc degeneration, lumbar region with discogenic back pain and lower extremity pain; Z23 Encounter for immunization

== ENCOUNTER → 2024-02-26 16:53 | Outpatient (BNVA) | payer OTHER, SELFPAY | PROVIDERS: PCP Internal Medicine; Visit Provider Internal Medicine | DX: Z23 Encounter for immunization (principal); N30.10 Interstitial cystitis (chronic) without hematuria; I10 Essential (primary) hypertension; E78.00 Pure hypercholesterolemia, unspecified; K21.9 Gastro-esophageal reflux disease without esophagitis; J45.20 Mild intermittent asthma, uncomplicated; F41.1 Generalized anxiety disorder; M54.12 Radiculopathy, cervical region; M51.362 Other intervertebral disc degeneration, lumbar region with discogenic back pain and lower extremity pain | CPT/HCPCS: 90471; 90656; 99212 ==

== ENCOUNTER → 2024-02-28 15:26 | Outpatient (BNVA) | payer OTHER, SELFPAY | PROVIDERS: PCP Internal Medicine; Visit Provider Urology ==

== ENCOUNTER 2024-04-09 14:31 | Outpatient (REF) | payer OTHER, SELFPAY ==
--- NOTE | ~2024-04-09 | XR_ITS ---
EXAMINATION: XR CERVICAL SPINE CLINICAL INFORMATION: Other cervical disc degeneration, unspecified cervical region M50.30. COMPARISON: XR Lumbar spine 04/04/2008 TECHNIQUE: 6 views of the cervical spine, inclusive of flexion and extension views, were obtained. FINDINGS: Anterior fusion at C3-C4 and C5-C6 without evidence of hardware complication. There is moderate spondylosis in the cervical spine. No appreciable listhesis. The bony neural foramina appear grossly patent. The prevertebral soft tissues are unremarkable. Lung apices are clear. XR/XR cervical spine 4V IMPRESSION: Anterior fusion at C3-C4 and C5-C6 without evidence of hardware complication. Electronically signed by: Vineet Jang MD 05/14/2024 09:34 AM FELIX
== END 2024-04-09 14:32 | disposition home or self-care (01) ==
LOC: HO.XRAY 14:31
PROVIDERS: PCP Internal Medicine; Visit Provider Nurse Practitioner Family
DX: M50.30 Other cervical disc degeneration, unspecified cervical region (principal); M96.1 Postlaminectomy syndrome, not elsewhere classified; M54.12 Radiculopathy, cervical region; M51.362 Other intervertebral disc degeneration, lumbar region with discogenic back pain and lower extremity pain; M47.817 Spondylosis without myelopathy or radiculopathy, lumbosacral region; G89.29 Other chronic pain
CPT/HCPCS: 72050; 72110; 99202

== ENCOUNTER 2024-04-09 14:31 | Outpatient (AMB) | payer OTHER, SELFPAY ==
--- NOTE | 2024-04-09 14:32 | MHC.OFFVIS ---
Vital Signs 04/09/24 14:37 Height 5 ft 5 in Weight 158 lb 6 oz BMI 26.4 BP 135/85 Blood Pressure Location Rt brachial Position Sitting Pulse 98 Pulse Source Pulse Oximeter Pulse Oximetry (%) 97 Oxygen Delivery Method Room Air Intake Visit Reasons: Radiculopathy, cervical region Intake Note: Pain today 5 Penology Professor Required: No Accompanied by: Self / Same As Patient Allergies animal dander [ANIMAL HAIR] Allergy (Intermediate, Verified 02/28/24 13:45) ASTHMA, HIVES lactose [Lactose] Allergy (Mild, Verified 02/28/24 13:45) DIARRHEA HPI HPI Radiculopathy, cervical region: Details: Patient is a 54 years old female with history of chronic neck, back and right hip pain, cervical radiculopathy and DDD, h/o cervical fusion (Dr. Acosta, [facility], 2016), cervical discectomy (Dr. Lozano, [facility], 2019), chronic left ankle pain h/o left ankle fusion (Dr. Packer, 2014), left foot surgery for toe deformities (Dr. 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 Denies any recent precipitating events, including trauma, injury or falls. Patient was previously followed by [facility] by Dr. Mitul Paredes for injections, including C6 VIRY (09/2016), left cervical facet blocks (10/2018) and most recent in 2020. She recently underwent TMS treatment for depression and is considering intranasal ketamine. Neck pain with limited ROM on the left with rotations and lateral bending or flexion radiates into left upper extremity and left shoulder with associated stabbing, sharp and aching sensations. Reports significant muscle spasms and stiffness in neck and upper back, left worse than right. Denies any burning, numbness, tingling, paresthesia or weakness in upper extremites. Back pain is axial and also radiates into right hip and groin without radiation into lower extremities. Neck and back pain affects her daily activities and functioning, sleep, mood, work, social interactions and quality of life. Pain is constant and most severe in the evening, rated at 10/10 and least severe mid morning, rated at 3/10. She has completed PT in 2020 for neck, upper back and shoulders which provided her 10% improvement in her symptoms, massage therapy and TENS unit 20% improvement. She has not done any recent formal physical therapy and it interested to pursue PT and trigger point injections as initial steps. Denies any fever or chills, dizziness, shortness of breaths, chest pain, cough, infection, gait imbalances, bladder or bowel dysfunction (except Interstitial cystitis) or saddle anesthesia. Oswestry Neck Disability Index Score=32 (severe disability) Location: Neck, lower back, right hip, left ankle Duration: Chronic pain since 2014 Characteristics of symptom or complaint: Shooting, spasming, stabbing, aching, dull, sharp, sore, heavy, aching Aggravating or associated factors: Movement, walking, prolonged sitting, standing, weather changes Relieving factors: Hydrocodone-acetaminophen, gabapentin, Ibuprofen, baclofen, heat, topicals Treatment: Neck and coccyx injections, PT, massage, TENS -[facility] Pain management and [facility] Medical History (Updated 04/10/24 @ 10:55 by ROBY Suárez) Chronic pain of left ankle IBS (irritable bowel syndrome) Anxiety Depression Asthma Hx of flexible sigmoidoscopy COVID-19 vaccine series completed History of COVID-19 Dental abscess Dental infection Sinusitis, maxillary, chronic Acute sinusitis Diarrhea Cervical radiculopathy ASCUS (atypical squamous cells of undetermined significance) on gynecologic Papanicolaou smear complicating , antepartum Lumbar degenerative disc disease GERD (gastroesophageal reflux disease) Hypercholesterolemia Insomnia Hypertension Interstitial cystitis Degenerative disc disease, cervical Surgical History (Updated 04/09/24 @ 14:46 by ROBY Suárez) History of foot surgery Hx of cystoscopy History of surgery History of neck surgery S/P cervical discectomy H/O nasal septoplasty History of ankle surgery Status post laparoscopic surgery History of wisdom tooth extraction Family History Father PTSD (post-traumatic stress disorder) Mental health disorder Mother No problems noted. Maternal Grandmother Breast cancer Maternal Grandfather Myocardial infarction Maternal Uncle Past heart attack Skin cancer Myocardial infarction Other Substance use disorder Social History Housing: House Alcohol intake: current Comment: once a week 2 drinks Patient Tobacco Use Status: Never used Tobacco Years Smoked: quit 2010, CBD, vaping e-Cigarette/Vaping Use: Never Used Second Hand Smoke Exposure: No service: No Current occupational status: unemployed Cognitive needs: No Hearing needs: No Vision needs: Yes Review of Systems Const All systems reviewed & are unremarkable except as noted in HPI and below Physical Exam Vital Signs: Last Vital Signs Pulse 98 04/09/24 14:37 BP 135/85 04/09/24 14:37 Pulse Ox 97 04/09/24 14:37 Oxygen Delivery Method Room Air 04/09/24 14:37 BMI result Body Mass Index 26.4 General: Appears afebrile. Alert and oriented. Mood and affect appropriate. Follows and participates in conversation appropriately. Respiratory effort is unlabored. No cough. No nasal discharge. Able to transition from sit to stand unassisted. Ambulates with bilaterally normal heel strike and toe off. Neck Other: Patient with decreased cervical ROM in all planes/especially with left lateral rotation. Reports increased pain with cervical extension and flexion. Spurling compression test is negative. Pain is unchanged by Spurling maneuver with retraction. Elvey's tension test positive on the left, with radiation of pain from neck to wrist. Lhermitte's test was negative. DTR intact, +1 left, +2 right. Patient demonstrated 5/5 motor strength of bilateral upper extremities. 2 + radial pulses. Significant tightness throughout left upper trapezius as well as TTP throughout bilateral upper trapezius muscles. No paravertebral tenderness over facet joints bilaterally. Multiple taut bands palpated throughout bilateral upper trapezius and rhomboid muscles. Neck: Yes normal visual inspection, Yes no lymphadenopathy, Yes supple, No anterior neck swelling, Yes no JVD, No prominent supraclavicular fat pad and Yes prominent dorsocervical fat pad General: Yes no CVA tenderness Back/Spine/Pelvis Back: no CVA tenderness Cervical Spine: No collar present, No Lhermitte's sign positive, loss of normal cervical lordosis, No cervical muscular tenderness, pain with cervical ROM (left), cervical spasm, No Cervical spine tenderness and No step off deformity Thoracic/Lumbar Spine: thoracic and lumbar spine normal to inspection, Lasegue's sign negative, straight leg raise negative bilaterally, pain with thoraco-lumbar ROM, paraspinal muscle tenderness, thoraco-lumbar ROM limited, No thoracic spinal tenderness and lumbar spinal tenderness (L3-S1) Pelvis: buttock tenderness on the right and no sciatic notch tenderness Sacroiliac joints: on the right (+Chago's, Stinchfield) tender to palpation and on the left nontender Extrem General: Yes capillary refill normal, Yes no clubbing, cyanosis or edema, Yes no calf tenderness and Yes muscle atrophy (left calf) Assessment & Plan Assessment & Plan (1) Degenerative disc disease, cervical: Code(s): M50.30 - Other cervical disc degeneration, unspecified cervical region Category: Medical (2) Lumbar degenerative disc disease: Comment: Left foot drop with left calf atrophy Code(s): M51.36 - Other intervertebral disc degeneration, lumbar region Category: Medical Qualifiers: Disc-related pain type: discogenic back pain and lower extremity pain Qualified Code(s): M51.362 - Other intervertebral disc degeneration, lumbar region with discogenic back pain and lower extremity pain (3) Cervical radiculopathy: Comment: September 2016 status post injection PS S C6 MRI nerve impingement October 2016, left cervical facet block September 2018 Code(s): M54.12 - Radiculopathy, cervical region Category: Medical (4) Cervical post-laminectomy syndrome: Code(s): M96.1 - Postlaminectomy syndrome, not elsewhere classified Category: Medical (5) Lumbosacral spondylosis: Code(s): M47.817 - Spondylosis without myelopathy or radiculopathy, lumbosacral region Category: Medical (6) Myofascial muscle pain: Code(s): M79.18 - Myalgia, other site Category: Medical (7) Chronic neck and back pain: Code(s): M54.2 - Cervicalgia; M54.9 - Dorsalgia, unspecified; G89.29 - Other chronic pain Category: Medical Plan Cervical and spine imaging to assess degree of degenerative changes, any subluxation, listhesis, compression fractures or pars defects. Discussed interventional treatments for chronic neck and back pain, including diagnostic vs therapeutic injections, neuromodulation with PNS vs SCS and ITDD trials and implants, and RFA procedures. Medical records release sent [facility] for previous imaging, procedures and injections for review. Recommend formal physical therapy to reduce pain and optimize mobility, improve strength, proprioception, and neuromuscular coordination. Script provided. All questions and concerns have been answered and patient agreed with the treatment plan. Follow-up in 6-8 weeks to see response to physical therapy, if no response to physical therapy will consider further interventional strategy. Orders: Orders XR cervical spine 4V 04/09/24 M50.30 - Other cervical disc degeneration, unspecified cervical region, M54.12 - Radiculopathy, cervical region, M96.1 - Postlaminectomy syndrome, not elsewhere classified PT Evaluation and Treatment 04/09/24 G89.29 - Other chronic pain, M25.551 - Pain in right hip, M25.572 - Pain in left ankle and joints of left foot, M50.30 - Other cervical disc degeneration, unspecified cervical region, M51.362 - Other intervertebral disc degeneration, lumbar region with discogenic back pain and lower extremity pain, M54.12 - Radiculopathy, cervical region XR lumbar spine 4V min 04/09/24 M47.817 - Spondylosis without myelopathy or radiculopathy, lumbosacral region, M51.362 - Other intervertebral disc degeneration, lumbar region with discogenic back pain and lower extremity pain Coding Level of Care Code New Pt Level 4 (17593) Complex EM visit Add On G2211 Diagnoses Degenerative disc disease, cervical M50.30 Degeneration of intervertebral disc of lumbar region with discogenic back pain and lower extremity pain M51.362 Disc-related pain type: discogenic back pain and lower extremity pain Cervical radiculopathy M54.12 Cervical post-laminectomy syndrome M96.1 Lumbosacral spondylosis M47.817 Myofascial muscle pain M79.18 Chronic neck and back pain M54.2; M54.9; G89.29
[2024-04-09 14:37] VITALS: BP 135/85; PULSE 98; O2SAT 97; BMI 26.4
== END 2024-04-09 15:19 | disposition home or self-care (01) ==
PROVIDERS: PCP Internal Medicine; Visit Provider Nurse Practitioner Family
DX: M50.30 Other cervical disc degeneration, unspecified cervical region (principal); M51.362 Other intervertebral disc degeneration, lumbar region with discogenic back pain and lower extremity pain; M54.12 Radiculopathy, cervical region; M96.1 Postlaminectomy syndrome, not elsewhere classified; M47.817 Spondylosis without myelopathy or radiculopathy, lumbosacral region; M79.18 Myalgia, other site; M54.2 Cervicalgia; M54.9 Dorsalgia, unspecified; G89.29 Other chronic pain
CPT/HCPCS: 99204; G2211

== ENCOUNTER 2024-05-03 09:00 | Outpatient (AMB) | payer OTHER, SELFPAY ==
--- OUTSIDE RECORDS SUMMARY | 2024-05-03 09:03 | XMS_ITS | Data Portability ---
Author Organization [facility] Halalati, Trippy Bandz Address [address] [place] [address] [place] [address] Care Team Providers Care Wellness Director Name Role Phone WILBER DACOSTA Referring Provider Unavailable WILBER DACOSTA Referring Provider WILBER DACOSTA Primary Care Provider Assessment Encounter Date Assessment Date Assessment LastModified by Organization Details LastModified Time 09/05/2023 09/05/2023 IMPRESSION: concern about memory function. I do not believe should her word finding difficulty and difficulty remembering names of items, and for her reflects impending dementia, Alzheimer's disease or not. I reassured her on this. She is managing well a very difficult situation where she is the sole caregiver for her mother and also cares for her own 10-year-old daughter who has ADHD. She is lucid in communication. She easily told her story and when we went over parts of it was consistent. Her presentation was well time ordered and appropriately filled with details. Clock drawing and motor sequencing tasks on exam are done easily. I do not minimize the symptoms that she has. We discussed that symptoms such as reduced motivation for doing her bills might come from depression augmented by the stress of her situation. She notes that her mother is getting increasingly difficult to care for and she is looking for assisted living alternatives. She wonders about imaging that she has heard that shows plaques in the brain relating to Alzheimer's disease. This imaging is indeed available to those who seem to have emerging dementia. I do not believe she is a member of this population. Therefore, I am not able to obtain that scan for her. I validate her worry about getting Alzheimer's disease? research has shown that it is the most scary disease across the [place] population of those greater than 50 years old. Her fear is heightened by her mother's dementia and the dementia of her grandmother and her grandmother sister. There is symptoms all emerged at a much later date than the patient's age? 53. Metabolic dysregulation may cause cognitive slowing and we agree that she will do that blood work. She will follow-up to talk about the results. She mentions other neurological symptoms? neck pain, left shoulder and hip pain. I tell her that the only thing that I might be able to do for these is physical therapy. She notes that she is under care of of pain management for her pain. I tell her I might not be able to do much more. She understands. DANAE Wendy Donohueaulieu ([facility]) September 05, 2023 Laboratories four metabolic dysregulation that might relate to cognitive slowing as detailed below. Follow-up in 6 weeks. luna Not available 09/05/2023 14:45:01 10/24/2023 10/24/2023 IMPRESSION: --concern about memory function. --Concern about neck, shoulder, hip and anterior thigh pain. >>>>>>LABORATOR[facility] ES September 12, 2023: B12 studies, thyroid studies, vitamin D, syphilis screen all normal. >>>>>>>>>>>>October 24, 2023 I reviewed the normal laboratories and reviewed that these were for metabolic dysregulation that could mimic at least mild memory dysfunction. I reiterated that I do not believe her word finding difficulty and difficulty remembering names reflects impending dementia as detailed below in my review of my impression at initial consultation. She understands. I also added a plausible explanation For her memory difficulties at initial consultation:: Depression and situational stress, again as detailed below. However: She wishes to explore clinical trials.gov for an appropriate clinical trial that might interest her. She is interested in familiar Alzheimer's disease. I showed her how to access clinical trials.gov on the Internet, how to choose Alzheimer's disease; how to choose phase 3 trials which are appropriately advanced so that the effectiveness of the medication is being tested after safety concerns and dosing guidelines are mostly addressed. I showed her how to focus in on clinical trials that might be looking for treatments based on either amyloid or Tau deposition management. I told her that other directions are emerging that might be more powerful than those. I told her how to look for trials that have clinical sites close to this area, [place] or close by major centers such as [place] or [facility] ock. She understood and took some notes. I again reviewed that for the pain symptoms that she has, both the existing ones from initial consultation September 05, 2023 and the new anterior thigh pain, my first approach would be physical therapy. Although she has noted radiological diagnosis of cervical spinal stenosis and degenerative disc disease, these diagnoses do not constitute clinical diagnoses. Her neurological exam has been essentially unrevealing. (The only weakness she has been left ankle eversion weakness? she has attributed to tendon transfer during one of her surgeries. The numbness over the top of left-sided toes is not a chief complaint possibly associated to that tendon transfer as well.) She is already working on her pain generally with the pain management consultation that she has. They are already sending her to physical therapy. In these contexts, I will continue to defer to pain management at this point for overseeing physical therapy for pain symptomatology. Should that not be sufficient, and should she and primary care feel there is a neurological basis that should be explored further, I am happy to see her in reconsultation. At the end of our encounter, she wondered if I could give her a referral for a new psychiatrist. She mentions that primary care has told her that they are unable to do this. I told her that I am unable as well. I suggest that she return to primary care to ask them that, if they cannot directly give her a referral, perhaps they can suggest what direction she might go toward receiving help from mental health care providers. >>>>>>>>>>>>Apri l 2023 initial impression I do not believe should her word finding difficulty and difficulty remembering names of items, and for her reflects impending dementia, Alzheimer's disease or not. I reassured her on this. She is managing well a very difficult situation where she is the sole caregiver for her mother and also cares for her own 10-year-old daughter who has ADHD. She is lucid in communication. She easily told her story and when we went over parts of it was consistent. Her presentation was well time ordered and appropriately filled with details. Clock drawing and motor sequencing tasks on exam are done easily. I do not minimize the symptoms that she has. We discussed that symptoms such as reduced motivation for doing her bills might come from depression augmented by the stress of her situation. She notes that her mother is getting increasingly difficult to care for and she is looking for assisted living alternatives. She wonders about imaging that she has heard that shows plaques in the brain relating to Alzheimer's disease. This imaging is indeed available to those who seem to have emerging dementia. I do not believe she is a member of this population. Therefore, I am not able to obtain that scan for her. I validate her worry about getting Alzheimer's disease? research has shown that it is the most scary disease across the [place] population of those greater than 50 years old. Her fear is heightened by her mother's dementia and the dementia of her grandmother and her grandmother sister. There is symptoms all emerged at a much later date than the patient's age? 53. Metabolic dysregulation may cause cognitive slowing and we agree that she will do that blood work. She will follow-up to talk about the results. She mentions other neurological symptoms? neck pain, left shoulder and hip pain. I tell her that the only thing that I might be able to do for these is physical therapy. She notes that she is under care of of pain management for her pain. I tell her I might not be able to do much more. She understands. PLAN Wendy Shabazz ([facility]) October 24, 2023 Follow-up as needed as detailed above. luna Not available 10/24/2023 18:26:35 Plan of Treatment Reminders Order Date Submit Date Provider Last Modified By Organization Details Last Modified Time Details Appointments None recorded. Lab vitamin B12, serum 024 [facility], [address] [place] [address], [id number], 4 11:16:50 folate, serum 024 [email or web address] 1 [facility], [address] [place] [address], [place], [address], 4 15:38:59 mma (methylma lonic acid), serum 024 [facility], [address] [place] [address], [id number], 4 11:19:07 homocyste ine, serum or plasma [facility], [address] [place] [address], [address], 4 11:19:12 TSH, serum or plasma - E07.[address] [facility], [address] [place] [address], [address], 4 15:39:00 T4, free, serum - E07.[address] [facility], [address] [place] [address], [id number], 4 15:39:00 vitamin D, 25-hydrox y, total, serum - E55.[address] [facility], [address] [place] [address], [address], 4 15:38:59 RPR (rapid plasma reagin), serum - A53.[address] [facility], [address] [place] [address], [id number], 4 15:39:00 Referral None recorded. Procedures None recorded. Surgeries None recorded. Imaging None recorded. Medication Orders None recorded. Patient TargetsNo targets recorded. Patient Instructions Encounter Date Encounter Id Patient Instructions Last Modified By Organization Details Last Modified Time 09/05/2023 [id number] Discussion acros s issues of diagnoses and management and same day associated chart review and management greater than 50% greater than 60 minutes mrossen Not available 09/05/2023 14:45:21 10/24/2023 [id number] Discussion acros s issues of diagnoses and management and same day associated chart review and management greater than 50% greater than 40 minutes mrossen Not available 10/24/2023 18:29:16 Reason for Referral None Reported. Results Created Date Observation Date Name Description Value Unit Range Abnormal Flag Note LastModifiedBy Organization Detail LastModifiedTime Result Notes None recorded. Medical Equipment None Reported. Allergies Allergen ID Allergen Name Allergen Category Reaction Reaction Severity Criticality Documentation Date Start Date Code Code System Note Provider Name and Address Organization Details Recorded Time 3922 hydroxyzi ne Not available Not available Not available Not available 09/05/2023 5553 RxNorm Veena Cisneros [facility] 4 13:09:32 Medications Name Sig Start Date Stop Date Status Note LastModified by Organization Details LastModified Time loperamide 2 mg capsule TAKE ONE CAPSULE BY MOUTH FOUR TIMES A DAY NEEDED FOR LOOSE STOOL FOR 30 DAYS. active Not Available Not Available No t Available ibuprofen 800 mg tablet active Not Available Not Available Not Available fluconazole 150 mg tablet TAKE 1 TABLET BY MOUTH ONCE, REPEAT THE DOSE IN 2 DAYS. active Not Available Not Available No t Available hydrocodone 5 mg-acetamino phen 325 mg tablet TAKE ONE TABLET BY MOUTH THREE TIMES A DAY NEEDED FOR PAIN active Not Available Not Available No t Available Elmiron 100 mg capsule TAKE ONE CAPSULE BY MOUTH TWICE A DAY active Not Available Not Available No t Available fexofenadine 180 mg tablet TAKE ONE TABLET BY MOUTH EVERY DAY NEEDED FOR ALLERGY SYMPTOMS active Not Available Not Available No t Available oxycodone-ac etaminophen 5 mg-325 mg tablet TAKE ONE TABLET BY MOUTH EVERY 6 TO 8 HOURS NEEDED FOR PAIN active Not Available Not Available No t Available famotidine 20 mg tablet TAKE ONE TABLET BY MOUTH TWICE A DAY active Not Available Not Available No t Available magnesium oxide 400 mg (241.3 mg magnesium) tablet TAKE ONE TABLET BY MOUTH EVERY DAY active Not Available Not Available No t Available baclofen 10 mg tablet TAKE 1 TABLET BY MOUTH UP TO TWICE DAILY DIRECTED NEEDED active Not Available Not Available No t Available promethazine 25 mg tablet TAKE ONE TABLET BY MOUTH EVERY 12 HOURS NEEDED FOR NAUSEA AND VOMITING. active Not Available Not Available No t Available Advair Diskus 250 mcg-50 mcg/dose powder for inhalation INHALE ONE PUFF BY MOUTH TWICE A DAY active Not Available Not Available No t Available bupropion HCl 75 mg tablet TAKE 1 TABLET BY MOUTH DAILY ALONG WITH 150 MG TABLET active Not Available Not Available No t Available montelukast 10 mg tablet TAKE ONE TABLET BY MOUTH AT BEDTIME active Not Available Not Available No t Available lisinopril 5 mg tablet TAKE 1 TABLET BY MOUTH DAILY. active Not Available Not Available No t Available zolpidem 10 mg tablet TAKE ONE TABLET BY MOUTH EVERY DAY AT BEDTIME active Not Available Not Available No t Available hydroxyzine HCl 10 mg tablet TAKE 1 TABLET AT BEDTIME; MAY INCREASE TO 2 TABLETS AFTER 7 DAYS IF NO DAYTIME DROWSINESS; AFTER TWO WEEKS MAY INCREASE TO 3 TABLETS IF NO active Not Available Not Available No t Available fluticasone propionate 50 mcg/actuatio n nasal spray,suspen aidan APPLY TWO SPRAYS IN THE AFFECTED NOSTRIL EVERY DAY active Not Available Not Available No t Available dicyclomine 10 mg capsule TAKE TWO CAPSULES 20 MG) BY MOUTH TWICE A DAY active Not Available Not Available No t Available Ventolin HFA 90 mcg/actuatio n aerosol inhaler INHALE 2 PUFFS ORALLY EVERY 4 TO 6 HOURS NEEDED FOR SHORTNESS OF BREATH OR WHEEZING. active Not Available Not Available No t Available hydroxyzine pamoate 25 mg capsule TAKE ONE CAPSULE BY MOUTH AT BEDTIME, USE ONE TO TWO CAPSULES AT BEDTIME. active Not Available Not Available No t Available escitalopram 10 mg tablet TAKE ONE TABLET BY MOUTH EVERY DAY active Not Available Not Available No t Available Cold and Hot (menthol) 5 % topical patch APPLY 1 PATCH TOPICALLY DAILY NEEDED FOR PAIN active Not Available Not Available No t Available bupropion HCl XL 150 mg 24 hr tablet, extended release TAKE ONE TABLET BY MOUTH EVERY DAY active Not Available Not Available No t Available sodium fluoride 1.1 % dental paste APPLY 1 APPLICATION TO TEETH TWO TIMES A DAY active Not Available Not Available No t Available Banophen 50 mg capsule TAKE ONE CAPSULE BY MOUTH AT BEDTIME NEEDED FOR ALLERGY SYMPTOMS active Not Available Not Available No t Available Uro-MP 118 mg-10 mg-40.8 mg-36 mg capsule TAKE ONE CAPSULE BY MOUTH THREE TIMES A DAY; ADMINSTER WITH PLENTY OF FLUIDS. active Not Available Not Available N ot Available Yuvafem 10 mcg vaginal tablet INSERT ONE TABLET VAGINALLY EVERY 72 HOURS active Not Available Not Available No t Available Vitals Date Recorded Body height Body mass index (BMI) Body weight Respiratory rate Provider Name and Address Organization Details Last Updated DateTime 09/05/2023 165.1 cm 25 kg/m2 75924.86 g 12 /min Veena Cisneros [facility] 09/05/2023 13:09:20 Social History Question Answer Notes LastModified by Organizat ion Details LastModified Time Tobacco Smoking Status Never Smoker Veena guillen [facility] 09/05/2023 13:11:52 What Is Your Level Of Alcohol Consumption? Occasional Information not available 09/05/2023 What Is Your Level Of Caffeine Consumption? Moderate 1 Cup Daily Information not available 09/05/2023 What Is The Highest Grade Or Level Of School You Have Completed Or The Highest Degree You Have Received? [id number] Information not available 09/05/2023 Which Of Your Hands Is Dominant? Right Information not available 09/05/2023 Sex: Unknown Functional Status None recorded. Mental Status None recorded. Family History Relationship Description Onset Age of this Age Resolved Age Notes LastModified by Organization Details LastModified Time Mother Dementia Not available 0 09/05/2023 13:09:58 Mother Headache Not available 0 09/05/2023 13:10:31 Mother Hypertensive disorder Not available 2023 13:11:01 Maternal Grandmother Dementia Not available 09/04 13:09:58 Maternal Aunt Dementia Not avai lable 09/05/2023 13:09:58 Father Diabetes mellitus Not available 2023 13:10:12 Father Hypertensive disorder Not available 2023 13:11:01 Father Seizure Not available 13:11:26 Paternal Grandmother Diabetes mellitus Not available 2023 13:10:12 Paternal Grandmother Neuropathy Not available 13:11:16 Maternal Grandfather Headache Not available 09/04 13:10:31 Paternal Uncle Heart disease Not available 2023 13:10:54 Medical History Condition Response Claustrophobia N Head Trauma/Injury N Hospitalizations N High Blood Pressure or Hypertension Y Thyroid Problems N Depression Y Brain Tumors N Lung Disease N COPD or emphysema N Encephalitis N Vitamin B12 deficiency N PTSD N Spine Problems N Heart Attack ([place]) N Obstructive Sleep Apnea N Alcoholism N Diabetes N Autoimmune disease N Bleeding Disorder N Arthritis N Cerebral Palsy N Tuberculosis N Developmental Problems N Neck Problems N Cancer N Back Problems N Stroke N Asthma Y Heartburn, acid reflux, GERD Y Vitamin D Deficiency N Epilepsy/Seizures N Bipolar Disorder N Sleep Disorder N Aneurysm N Hepatitis N Liver Disease N Heart Disease N Fibromyalgia N Headaches Y High Cholesterol or Hyperlipidemia N Osteoporosis N Kidney Disease N Gynecological HistoryNo gynecological history recorded. 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 324172418 D51.0 Abnormal t hyroid hormone 412063276 R94.6 Vitamin D deficiency 347 24084 E55.9 Syphilis 52483753 A53.9 [id number] Krishna Jenkins MD [facility] [address] [place] [address] [place] [id number] 10/24/2023 16:39:30 10/30/2023 15:36:01 Mild neurocognitive disorder 235776356 G31.84 Health Concerns Section Related Observation LastModified by Organization Detai ls LastModified Time None Recorded Concern Status LastModified by Organization Details LastModified Time None Recorded Advance Directives Directive None Recorded Payers Encounter Date Sequence Insurance Name Policy Number Policy Post Covered Member ID Post Member ID Guarantor Name 09/05/2023 1 [facility] [employer] FORMERLY [facility] PLAN (MEDICAID HMO) JOSE Shabazz [id number] Wendy Shabazz 10/24/2023 1 [facility] [employer] FOR[facility] PLAN (MEDICAID HMO) JOSE Shabazz [id number] Wendy Shabazz Notes Date Note Type Note Provider Name and Address Organization Details Recorded Time 09/05/2023 text/html She presents for initial neurology consultation for assessment and management of concern about her memory function. Past history per chart includes hypertension, hypercholesterolemi a, GERD, asthma, multifocal pain from a patient of pain management, with status post cervical discectomy with neck pain on narcotics, right hip pain; left ankle fusion with chronic left peroneal neuropathy; interstitial cystitis, anxiety. She is unaccompanied.She has concern that she might not have emerging Alzheimer's disease. She cares for her mother who has diagnosis of Alzheimer's disease diagnosed at age 65 as well as schizophrenia. Her grandmother and her grandmother's sister have had diagnosis of Alzheimer's disease, symptoms for both emerging in their mid to late 70s.Crohn's symptoms include problems remembering names of people coming up with terms that are familiar to her. She spontaneously adds that she understands that Vicodin which she is on for neck pain could contribute. So far her short-term memory is okay. Sometimes she has difficulty in things requiring longer steps, thought process, longer concentration. She might have had ADD when she was younger and might still have a little. As an example of recent problems, she was filling out paperwork for her mother last week for a [employer] application. She had difficulty so that she needed to obtain guidance from an eldercare social services director. She thinks an earlier time she would not have needed such guidance. As an example, in 2007 she applied for medical guardianship for her mother was of her mother's of schizophrenia. She went to court, filled out forms and appeared in court all on her own, without an trademark attorney.She lives with her mother and her 10-year-old daughter who is healthy for the most part? ? She has ADD. She cooks occasionally, sometimes prepares frozen food, and sometimes her boyfriend cooks. She just makes frozen dinner for her mother who otherwise gets hot meals for breakfast and lunch 5 days a week at a day program.She drives without getting lost. He occasionally misses a turn and has to go back while using her GPS. This has always been the case since she has started depending on GPS? for the past 5 to 10 years. Before that, she was excellent at directions. She does the finances for the household. She has always struggled, predominantly from insufficient motivation to start and pursue the task. It seems more down Musing? ? recently. She has a long history of depression and understands that problems with motivation are associated with this. She is not necessarily more depressed. She is looking for a new psychiatric medication prescriber.She has taken Ambien for greater than 10 years and with this she gets to sleep okay. The majority the time she stays asleep through morning. She wakes groggy for about an hour which she thinks is a side effect of the Ambien. After that she has good energy. She does not have hallucinations. She notes that she has amnesia after she takes Ambien in the evening before going to sleep if she goes to sleep more than an hour after she takes her Ambien. She thinks this is also a side effect of Ambien and I agree with her that this is a possibility. Krishna Jenkins MD [address] [place] [address], [phone], [facility] 09/05/2023 14:45:37 10/24/2023 text/html Neurology follow -up of concern about her memory function. Past history per chart includes hypertension, hypercholesterolemi a, GERD, asthma, multifocal pain from a patient of pain management, with status post cervical discectomy with neck pain on narcotics, right hip pain; left ankle fusion with chronic left peroneal neuropathy; interstitial cystitis, anxiety. She is unaccompanied. >>>>>>>>>>>>October 24, 2023Since September 05, 2023 Inititial neurology consultation, she continues to have concern about her difficulty with word finding and remembering names. She was reassured a little by my opinion that, although her family history includes dementia increasing the likelihood that she would get dementia, her current symptoms do not suggest to me connection to such a worrisome eventuality. She would like to look into some studies or something like that. In addition, she remains concerned about her other issues: Neck pain, left shoulder pain and hip pain. She is also getting some pain more recently bilaterally on her anterior thighs. She notes that she has been given diagnoses of spinal stenosis and degenerative disc disease in her cervical spine.-- October 24, 2023 continued concern about memory dysfunction. Continued concern about neck, shoulder and hip pain. New concern about anterior thigh pain. >>>>>>>>>>>>September 05, 2023 presenting symptomotology:She has concern that she might not have emerging Alzheimer's disease. She cares for her mother who has diagnosis of Alzheimer's disease diagnosed at age 65 as well as schizophrenia. Her grandmother and her grandmother's sister have had diagnosis of Alzheimer's disease, symptoms for both emerging in their mid to late 70s.Crohn's symptoms include problems remembering names of people coming up with terms that are familiar to her. She spontaneously adds that she understands that Vicodin which she is on for neck pain could contribute. So far her short-term memory is okay. Sometimes she has difficulty in things requiring longer steps, thought process, longer concentration. She might have had ADD when she was younger and might still have a little. As an example of recent problems, she was filling out paperwork for her mother last week for a [employer] application. She had difficulty so that she needed to obtain guidance from an eldercare social services director. She thinks an earlier time she would not have needed such guidance. As an example, in 2007 she applied for medical guardianship for her mother was of her mother's of schizophrenia. She went to court, filled out forms and appeared in court all on her own, without an trademark attorney.She lives with her mother and her 10-year-old daughter who is healthy for the most part? ? She has ADD. She cooks occasionally, sometimes prepares frozen food, and sometimes her boyfriend cooks. She just makes frozen dinner for her mother who otherwise gets hot meals for breakfast and lunch 5 days a week at a day program.She drives without getting lost. He occasionally misses a turn and has to go back while using her GPS. This has always been the case since she has started depending on GPS? for the past 5 to 10 years. Before that, she was excellent at directions. She does the finances for the household. She has always struggled, predominantly from insufficient motivation to start and pursue the task. It seems more down Musing? ? recently. She has a long history of depression and understands that problems with motivation are associated with this. She is not necessarily more depressed. She is looking for a new psychiatric medication prescriber.She has taken Ambien for greater than 10 years and with this she gets to sleep okay. The majority the time she stays asleep through morning. She wakes groggy for about an hour which she thinks is a side effect of the Ambien. After that she has good energy. She does not have hallucinations. She notes that she has amnesia after she takes Ambien in the evening before going to sleep if she goes to sleep more than an hour after she takes her Ambien. She thinks this is also a side effect of Ambien and I agree with her that this is a possibility. Krishna Jenkins MD [address] [place] [address] [place], [phone], [facility] 10/24/2023 18:29:29 OBGyn Episode No OBEpisode recorded.
--- NOTE | 2024-05-03 09:13 | MHC.OFFVIS ---
Vital Signs 05/03/24 09:14 Height 5 ft 5 in Weight 158 lb BMI 26.3 BP 123/83 Blood Pressure Location Lt brachial Position Sitting Respiration 16 Pulse 85 Pulse Source Pulse Oximeter Pulse Oximetry (%) 98 Oxygen Delivery Method Room Air Intake Visit Reasons: Cervical TPI/Dry Needling Allergies animal dander [ANIMAL HAIR] Allergy (Intermediate, Verified 05/03/24 09:17) ASTHMA, HIVES lactose [Lactose] Allergy (Mild, Verified 05/03/24 09:17) DIARRHEA Medication List - Last Reconciled 05/03/24 by Maral Aden LPN albuterol sulfate 90 mcg/actuation (Ventolin HFA) 2 puffs PO Q4-6H PRN azelastine 2 sprays intranasal BID bupropion HCl 75 mg PO DAILY 90 days bupropion HCl XL 150 mg PO DAILY cholecalciferol (vitamin D3) 50 mcg PO DAILY dicyclomine 20 mg (2 x 10 mg) PO BID diphenhydramine HCl (Banophen) 50 mg PO BEDTIME PRN epinephrine 0.3 mg (0.3 mL) IM ONCE PRN escitalopram oxalate 10 mg PO DAILY estradiol (Yuvafem) 10 mcg vaginal Q3D fexofenadine 180 mg PO DAILY PRN 90 days fluconazole 150 mg PO ONCE fluticasone propion-salmeterol 250-50 mcg/dose (Advair Diskus) 1 inh inhalation Q12H fluticasone propionate 50 mcg/actuation 2 sprays intranasal DAILY gabapentin 100 mg PO TID hydrocodone-acetaminophen 5-325 mg 1 tab PO TID PRN 30 days ibuprofen 800 mg PO Q12H PRN lisinopril 5 mg PO DAILY loperamide (Anti-Diarrheal (loperamide)) 2 mg PO QID PRN 30 days magnesium oxide 400 mg PO DAILY menthol 5% (Cold and Hot (menthol)) 1 patch topical DAILY PRN methen-brandin-s.kspf-jlmct-vfe 118-10-40.8-36 mg (Uribel) 1 tab PO TID montelukast 10 mg PO BEDTIME 90 days omeprazole 40 mg PO DAILY 90 days pentosan polysulfate sodium (Elmiron) 100 mg PO TID promethazine 25 mg PO Q12H PRN varicella-zoster gE-AS01B (PF) 50 mcg/0.5 mL (Shingrix (PF)) 0.5 mL IM ONCE zolpidem 10 mg PO BEDTIME 90 days HPI HPI Cervical TPI/Dry Needling: Details: 54-year-old female who presents today to the office for a cervical trigger point injection and dry needling.?Denies any recent cough, cold, infection, fever, or other significant changes in medical history since last office visit.? She has a history of cervical radiculopathy and DDD, h/o cervical fusion (Dr. Acosta, [facility], 2017), cervical discectomy (Dr. Lozano, [facility] [place], 2019). She was previously followed by [facility] Pain Management by Dr. Mitul Paredes for injections, including C6 VIRY (09/2016), left cervical facet blocks (10/2018), and most recently in 2020. She has completed PT in 2020 for neck, upper back, and shoulders, which provided her with a 10% improvement in her symptoms, massage therapy, and TENS unit 20% improvement. She has not done any recent formal physical therapy. She has tried dry needling with physical therapy in the past. She is interested in trying acupuncture. [facility] Medical History (Updated 04/10/24 @ 10:55 by ROBY Suárez) Chronic pain of left ankle IBS (irritable bowel syndrome) Anxiety Depression Asthma Hx of flexible sigmoidoscopy COVID-19 vaccine series completed History of COVID-19 Dental abscess Dental infection Sinusitis, maxillary, chronic Acute sinusitis Diarrhea Cervical radiculopathy ASCUS (atypical squamous cells of undetermined significance) on gynecologic Papanicolaou smear complicating , antepartum Lumbar degenerative disc disease GERD (gastroesophageal reflux disease) Hypercholesterolemia Insomnia Hypertension Interstitial cystitis Degenerative disc disease, cervical Surgical History (Updated 04/09/24 @ 14:46 by ROBY Suárez) History of foot surgery Hx of cystoscopy History of surgery History of neck surgery S/P cervical discectomy H/O nasal septoplasty History of ankle surgery Status post laparoscopic surgery History of wisdom tooth extraction Family History Father PTSD (post-traumatic stress disorder) Mental health disorder Mother No problems noted. Maternal Grandmother Breast cancer Maternal Grandfather Myocardial infarction Maternal Uncle Past heart attack Skin cancer Myocardial infarction Other Substance use disorder Social History Housing: House Alcohol intake: current Comment: once a week 2 drinks Patient Tobacco Use Status: Never used Tobacco Years Smoked: quit 2009, CBD, vaping e-Cigarette/Vaping Use: Never Used Second Hand Smoke Exposure: No service: No Current occupational status: unemployed Cognitive needs: No Hearing needs: No Vision needs: Yes Review of Systems Const All systems reviewed & are unremarkable except as noted in HPI and below Physical Exam Vital Signs: Last Vital Signs Pulse 85 05/03/24 09:14 Resp 16 05/03/24 09:14 BP 123/83 05/03/24 09:14 Pulse Ox 98 05/03/24 09:14 Oxygen Delivery Method Room Air 05/03/24 09:14 BMI result Body Mass Index 26.3 General: Appears afebrile. Alert and oriented. Mood and affect appropriate. Follows and participates in conversation appropriately. Respiratory effort is unlabored. Able to transition from sit to stand unassisted. Ambulates with bilaterally normal heel strike and toe off. Office Procedures Injection Trigger Point Multi Pre-procedure diagnosis: Myofascial pain Post-procedure diagnosis: Myofascial pain Site and number of trigger points: Left occipitalis,?trapezius?and?rhomboid?region. Solution: 0.2 mL ropivacaine 0.1% was injected at each trigger point. ? The procedure, its benefits, and its risks were explained to the patient and all questions were answered. Prior to the start of the procedure, a ?time out? was performed to confirm correct patient, procedure, and laterality. Trigger points were identified by manual palpation and marked. The skin was cleaned with Chloraprep. A 1.5-inch 25 G needle was used. The trigger points were identified on the left trapezius, occipitalis and rhomboid region. The muscles were lifted away from the underlying layers and dry needling was done for 30 to 60 seconds at each trigger point. The patient tolerated the procedure well. Post-procedure, breath sounds were equal at both sides of the chest. The patient tolerated the procedure well, without complication. The patient denied any numbness, paresthesia, or weakness. Post-procedure vitals were recorded as part of the nursing discharge note in electronic medical record. Following a period of observation, the patient was discharged in stable condition with written discharge instructions. Trigger Point Multiple: 11013- Trigger point injection =/>3 Results Reviewed Results Reviewed: No imaging is available for review. Assessment & Plan Assessment & Plan (1) Myofascial muscle pain: Code(s): M79.18 - Myalgia, other site Category: Medical Plan Patient is status post trigger point injections with dry needling. Patient tolerated procedure well and was discharged home in stable condition with discharge instructions.? All questions were answered. We will follow-up in two weeks via telephone or in clinic to assess response to therapy. A follow-up appointment was made during today's visit. Scribed for Dr. Foster by Braeden Vigil, medical assembler, on 05/03/2024. I, Dr. Foster, have personally reviewed and agree with the information entered by the scribe. Coding Level of Care Code Procedure Only Diagnoses Myofascial muscle pain M79.18 CPT Codes Details - Trigger Point Multiple: 30309- Trigger point injection =/>3 ([id number])
[2024-05-03 09:14] VITALS: BP 123/83; PULSE 85; RESP 16; O2SAT 98; BMI 26.3
== END 2024-05-03 09:39 | disposition home or self-care (01) ==
PROVIDERS: PCP Internal Medicine; Visit Provider Internal Medicine
DX: M79.18 Myalgia, other site (principal)
CPT/HCPCS: 20553

== ENCOUNTER → 2024-05-03 09:00 | Outpatient (BNVA) | payer OTHER, SELFPAY | PROVIDERS: PCP Internal Medicine; Visit Provider Internal Medicine | DX: M79.18 Myalgia, other site (principal) | CPT/HCPCS: 20553 ==

== ENCOUNTER 2024-06-03 15:39 | Outpatient (AMB) | payer OTHER, SELFPAY ==
--- NOTE | 2024-06-03 15:40 | A.OFFPC_ITS ---
Vital Signs 06/03/24 15:44 Height 5 ft 5 in Weight 158 lb BMI 26.3 BP 140/90 H Blood Pressure Location Lt brachial Position Sitting Pulse 85 Pulse Source Pulse Oximeter Pulse Oximetry (%) 98 Oxygen Delivery Method Room Air Intake Visit Reasons: Interstitial cystitis, cervical ddd, Allergies animal dander [ANIMAL HAIR] Allergy (Intermediate, Verified 06/03/24 15:46) ASTHMA, HIVES lactose [Lactose] Allergy (Mild, Verified 06/03/24 15:46) DIARRHEA Tobacco use date assessed: 06/03/24 Dental Screening Dental Screen Date: 06/03/24 Did you have a dental visit in the last 12 months?: Yes Did you have a dental problem in the last 6 months where you did not have access to dental care?: No Was dental information given to patient?: Patient has dentist HPI Interstitial cystitis, cervical ddd, HPI Details 54-year-old overweight female with inter stitial cystitis, hypertension hypercholesterolemia GERD asthma generalized anxiety disorder with lumbar and cervical degenerative disc disease having had surgery on the neck now with cervical post laminectomy syndrome coming in for follow-up. Patient has the narcotic pain medication for relief and has been seeking pain management. Patient has had needling injections recently with partial relief. Otherwise has been busy with the family with multiple stresses patient does have counseling and therapy. [facility] Medical History Chronic pain of left ankle IBS (irritable bowel syndrome) Anxiety Depression Asthma Hx of flexible sigmoidoscopy COVID-19 vaccine series completed History of COVID-19 Dental abscess Dental infection Sinusitis, maxillary, chronic Acute sinusitis Diarrhea Cervical radiculopathy ASCUS (atypical squamous cells of undetermined significance) on gynecologic Papanicolaou smear complicating , antepartum Lumbar degenerative disc disease GERD (gastroesophageal reflux disease) Hypercholesterolemia Insomnia Hypertension Interstitial cystitis Degenerative disc disease, cervical Surgical History History of foot surgery Hx of cystoscopy History of surgery History of neck surgery S/P cervical discectomy H/O nasal septoplasty History of ankle surgery Status post laparoscopic surgery History of wisdom tooth extraction Family History Father PTSD (post-traumatic stress disorder) Mental health disorder Mother No problems noted. Maternal Grandmother Breast cancer Maternal Grandfather Myocardial infarction Maternal Uncle Past heart attack Skin cancer Myocardial infarction Other Substance use disorder Social History Housing: House Alcohol intake: current Comment: once a week 2 drinks Patient Tobacco Use Status: Never used Tobacco Years Smoked: quit 2009, CBD, vaping e-Cigarette/Vaping Use: Never Used Second Hand Smoke Exposure: No service: No Current occupational status: unemployed Cognitive needs: No Hearing needs: No Vision needs: Yes Questionnaire PHQ-9 Over the last 2 weeks, how often have you been bothered by any of the following problems? 1. Little interest or pleasure in doing things: more than half the days 2. Feeling down, depressed, or hopeless: nearly every day 3. Trouble falling or staying asleep, or sleeping too much: nearly every day 4. Feeling tired or having little energy: nearly every day 5. Poor appetite or overeating: more than half the days 6. Feeling bad about yourself - or that you are a failure or have let yourself or your family down: more than half the days 7. Trouble concentrating on things, such as reading the newspaper or watching television: more than half the days 8. Moving or speaking so slowly that other people could have noticed. Or the opposite - being so fidgety or restless that you have been moving around a lot more than usual: not at all 9. Thoughts that you would be better off or of hurting yourself in some way: several days Total score: 18 Depression Screening Interpretation: Positive Depression Screening Done: Yes 94213 - PHQ-9 Billing: Yes Source: Developed by Drs. Vineet Centeno, Eri Gaming, Brent Biswas and colleagues, with an educational mulugeta from [employer]. Thrive Questionnaire Date Thrive assessed: 06/03/24 I am a: Patient What is your living situation today?: I have a steady place to live Within the past 12 months, did the food you bought not last and you didn't have the money to get more?: Never true Within the past 12 months, did you worry whether your food would run out before you got money to buy more?: Never true Do you have trouble paying for medicines?: No Do you have trouble getting transportation to medical appointments?: No Do you have trouble paying your heating and electricity bill?: No Do you have trouble taking care of your child, family member or friend?: No Do you have trouble with day-to-day activities such as bathing, preparing meals, shopping, managing finances, etc.?: No Are you currently unemployed and looking for a job?: No Are you interested in more education?: No THRIVE Score: 0 AUDIT C Alcohol Use Questionnaire (AUDIT-C) 1. How often do you have a drink containing alcohol?: 2-4 times a month 2. How many drinks containing alcohol do you have on a typical day when you are drinking?: 1 or 2 3. How often do you have six or more drinks on one occasion?: Never Total Score: 2 SURENDRA-7 AMB Questionnaire SURENDRA-7 Date SURENDRA - 7 assessed: 06/03/24 Feeling nervous, anxious, or on edge: 3 = Nearly every day Not being able to stop or control worryin = More than half the days Worrying too much about different things: 2 = More than half the days Trouble relaxin = Nearly every day Being so restless that it is hard to sit still: 0 = Not at all Becoming easily annoyed or irritable: 2 = More than half the days Feeling afraid as if something awful might happen: 2 = More than half the days Total SURENDRA-7 score (0-4 normal; 5-9 mild; 10-14 moderate; 15-21 severe): 14 Source: Developed by Drs. Vineet Centeno, Eri Gaming, Brent Biswas and colleagues, with an educational mulugeta from [employer]. SURENDRA-7 Assessment Billing SURENDRA-7 Assessment Tool: SURENDRA-7 Assessment 55826 Physical exam (Primary Care) Vital Signs: Last Vital Signs Pulse 85 06/03/24 15:44 BP 140/90 H 06/03/24 15:44 Pulse Ox 98 06/03/24 15:44 Oxygen Delivery Method Room Air 06/03/24 15:44 BMI result Body Mass Index 26.3 Tobacco/Smoking Status: Tobacco use Status Tobacco use date assessed 06/03/24 06/03/24 15:52 Patient Tobacco Use Status Never used Tobacco 06/03/24 15:43 e-Cigarette/Vaping Use Never Used 06/03/24 15:43 PHQ-9: PHQ-9 Score PHQ-9: Total score 18 06/03/24 16:09 Depression Screening Interpretation: Positive Thrive Assessment: Date of Thrive Assessment Date Thrive assessed 06/03/24 06/03/24 15:52 Const General: alert; No acute distress Eyes Conjunctivae: conjunctivae normal Resp Auscultation: clear to auscultation bilaterally Cardio Rate: regular rate Rhythm: regular rhythm GI Inspection: Yes normal to inspection Extrem General: Yes normal to inspection and No edema Coding Level of Care Code Est Pt Level 4 (38761) Complex EM visit Add On G2211 Diagnoses Cervical post-laminectomy syndrome M96.1 Generalized anxiety disorder F41.1 Mild intermittent asthma without complication J45.20 Asthma complication type: uncomplicated Asthma persistence: intermittent Asthma severity: mild Gastroesophageal reflux disease without esophagitis K21.9 Esophagitis presence: without esophagitis Hypercholesterolemia E78.00 Essential hypertension I10 Hypertension type: essential hypertension Interstitial cystitis N30.10 Breast cancer screening by mammogram Z12.31 Additional Codes SURENDRA-7 Assessment Billing - SURENDRA-7 Assessment Tool: SURENDRA-7 Assessment [id number] ([id number]) PHQ-9 - 81955 - PHQ-9 Billing: Yes ([id number]) Assessment & Plan Assessment & Plan (1) Cervical post-laminectomy syndrome: Code(s): M96.1 - Postlaminectomy syndrome, not elsewhere classified Category: Medical Plan: Narcotic pain meds: Is being prescribed with the understanding that these medications are potentially addictive and should be used only when absolutely necessary and must always be secured. Any remaining pills should be safely disposed off appropriately. Patient is advised that narcotics can impaired judgment and one should not drive or operate heavy machinery while taking these medications. Never share these medications with anybody and do not leave them unattended. They will not be replaced under any circumstances. Continue to follow-up with pain management (2) Generalized anxiety disorder: Comment: will try to get own counsellor (07/2022)[facility] (02/2024) [address] [id number] Code(s): F41.1 - Generalized anxiety disorder Category: Medical Plan: [facility] (3) Asthma: Code(s): J45.909 - Unspecified asthma, uncomplicated Category: Medical Qualifiers: Asthma complication type: uncomplicated Asthma persistence: intermittent Asthma severity: mild Qualified Code(s): J45.20 - Mild intermittent asthma, uncomplicated Plan: Stable asthma continuing with inhalers as needed (4) GERD (gastroesophageal reflux disease): Code(s): K21.9 - Gastro-esophageal reflux disease without esophagitis Category: Medical Qualifiers: Esophagitis presence: without esophagitis Qualified Code(s): K21.9 - Gastro-esophageal reflux disease without esophagitis Plan: ff up with referral to GI. Avoid the foods that causes that usually spicy foods, tomato products, juices, coffee, soda and foods that your sensitive to. After eating do not lie down, allow 3-4 hours before in lie down. And keep the head of bed above 30 degrees to avoid the acid from going up. (5) Hypercholesterolemia: Code(s): E78.00 - Pure hypercholesterolemia, unspecified Category: Medical Plan: Avoid fried foods, chicken skin, eggs, butter margarine, pastries and meat. Be it pork or beef they have a lot of cholesterol LDL goal of less than 130 and triglyceride of less than 150 (6) Hypertension: Code(s): I10 - Essential (primary) hypertension Category: Medical Qualifiers: Hypertension type: essential hypertension Qualified Code(s): I10 - Essential (primary) hypertension Plan: Continue with blood pressure medication. Decrease salt intake and exercise continue with lisinopril 5 mg once a day (7) Interstitial cystitis: Code(s): N30.10 - Interstitial cystitis (chronic) without hematuria Category: Medical Plan: seeing Urology but problematic about Eye exam (8) Breast cancer screening by mammogram: Code(s): Z12.31 - Encounter for screening mammogram for malignant neoplasm of breast Category: Medical Plan: Mammogram requested Orders: Orders Comprehensive Met. Panel 1 Month E78.00 - Pure hypercholesterolemia, unspecified Lipid Panel 1 Month E78.00 - Pure hypercholesterolemia, unspecified Vitamin B12 and Folate 1 Month E78.00 - Pure hypercholesterolemia, unspecified Vitamin D 25-OH Total 1 Month E78.00 - Pure hypercholesterolemia, unspecified MM tomosynthesis screening BI Today Z12.31 - Encounter for screening mammogram for malignant neoplasm of breast Complete Blood Count Auto Diff 1 Month E78.00 - Pure hypercholesterolemia, unspecified Free T4 (Free Thyroxine) 1 Month E78.00 - Pure hypercholesterolemia, unspecified Thyroid Stimulating Hormone 1 Month E78.00 - Pure hypercholesterolemia, unspecified UA CC w/rflx Micro + Cult 1 Month E78.00 - Pure hypercholesterolemia, unspecified, R30.0 - Dysuria Medications: Refilled hydrocodone-acetaminophen 5-325 mg 1 tab PO TID PRN 90 tabs 0RF pain 30 days M 50.30 - Other cervical disc degeneration, unspecified cervical region, N30.10 - Interstitial cystitis (chronic) without hematuria
[2024-06-03 15:44] VITALS: BP 140/90; PULSE 85; O2SAT 98; BMI 26.3
--- OUTSIDE RECORDS SUMMARY | 2024-06-03 19:38 | XMS_ITS | Data Portability ---
Author Organization [facility] [employer], [email or web address] Address [address] [place] [address] [place] [address] Care Team Providers Care Manager Commercial Sales Name Role Phone WILBER DACOSTA Referring Provider [...] much more. She understands. DANAE Wendy Donohueaulieu ([facility]) September 05, 2023 Laboratories four metabolic dysregulation [...] have clinical sites close to this area, [place] or close by major centers such as [place] or [facility] ock. She understood and took some [...] None recorded. Lab vitamin B12, serum 024 [facility], [address] [place] [address], [id number], 4 11:16:50 folate, serum 024 vlefebvre 1 [facility], [address] [place] [address], [place], [address], 4 15:38:59 mma (methylma lonic acid), serum 024 [facility], [address] [place] [address], [address], 4 11:19:07 homocyste ine, serum or plasma [facility]24 [facility], [address] [place] [address], [address], 4 11:19:12 TSH, serum or plasma - E07.[address] [facility], [address] [place] [address], [address], 4 15:39:00 T4, free, serum - E07.[address] [facility], [address] [place] [address], [address], 4 15:39:00 vitamin D, 25-hydrox y, total, serum - E55.[address] [facility], [address] [place] [address], [address], 4 15:38:59 RPR (rapid plasma reagin), serum - A53.[address] [facility], [address] [place] [address], [address], 4 15:39:00 Referral None recorded. Procedures None recorded. Surgeries None recorded. Imaging None recorded. Medication Orders None recorded. Patient TargetsNo targets recorded. Patient Instructions Encounter Date Encounter Id Patient Instructions Last Modified By Organization Details Last Modified Time 09/05/2023 [id number] Discussion acros s issues of diagnoses and management and same day associated chart review and management greater than 50% greater than 60 minutes mrossen Not available 09/05/2023 14:45:21 10/24/2023 [id number] Discussion acros s issues of diagnoses and [...] Not available 09/05/2023 [id number] RxNorm Veena Cisneros [facility] 4 13:09:32 Medications Name Sig Start Date [...] Updated DateTime 09/05/2023 165.1 cm 25 kg/m2 02946.86 g 12 /min Veena Cisneros [facility] 09/05/2023 13:09:20 Social History Question Answer Notes LastModified by Organizat ion Details LastModified Time Tobacco Smoking Status Never Smoker Veena guillen [facility] Neurology [facility] 09/05/2023 13:11:52 What Is Your Level Of Alcohol Consumption? Occasional Information not available 09/05/2023 What Is Your Level Of Caffeine Consumption? Moderate 1 Cup Daily Information not available 09/05/2023 What Is The Highest Grade Or Level Of School You Have Completed Or The Highest Degree You Have Received? 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 079783415 D51.0 Abnormal t hyroid hormone 611296332 R94.6 Vitamin D deficiency 347 04727 E55.9 Syphilis 48599004 A53.9 [id number] Krishna Jenkins MD [facility] [address] [place] [address] [place] [address] 10/24/2023 16:39:30 10/30/2023 15:36:01 Mild neurocognitive disorder 413484189 G31.84 Health Concerns Section Related Observation LastModified by Organization Detai ls LastModified Time None Recorded Concern Status LastModified by Organization Details LastModified Time None Recorded Advance Directives Directive None Recorded Payers Encounter Date Sequence Insurance Name Policy Number Policy Post Covered Member ID Post Member ID Guarantor Name 09/05/2023 1 [facility] [employer] [facility] PLAN (MEDICAID HMO) JOSE Shabazz [id number] Wendy Shabazz 10/24/2023 1 [facility] [employer] [facility] PLAN (MEDICAID HMO) JOSE Shabazz [id number] Wendy Shabazz Notes Date Note Type Note [...] for her mother last week for a [employer] application. She had difficulty so that she needed to obtain guidance from an eldercare social work faculty member. She thinks an earlier time she would not have needed such guidance. As an example, in 2007 she applied for medical guardianship for her mother was of her mother's of schizophrenia. She went to court, filled out forms and appeared in court all on her own, without an immigration attorney.She lives with her mother and her [...] this is a possibility. Krishna Jenkins MD [address] [place] [address] [place], [address], [facility] Neu[facility] 09/05/2023 14:45:37 10/24/2023 text/html Neurology follow -up [...] for her mother last week for a [employer] application. She had difficulty so that she needed to obtain guidance from an eldercare social work faculty member. She thinks an earlier time she would not have needed such guidance. As an example, in 2007 she applied for medical guardianship for her mother was of her mother's of schizophrenia. She went to court, filled out forms and appeared in court all on her own, without an immigration attorney.She lives with her mother and her [...] this is a possibility. Krishna Jenkins MD [address] [place] [address] [place], [address], [facility] 10/24/2023 18:29:29 OBGyn Episode No OBEpisode recorded.
== END 2024-06-03 16:41 | disposition home or self-care (01) ==
PROVIDERS: PCP Internal Medicine; Visit Provider Internal Medicine
DX: M96.1 Postlaminectomy syndrome, not elsewhere classified (principal); F41.1 Generalized anxiety disorder; J45.20 Mild intermittent asthma, uncomplicated; K21.9 Gastro-esophageal reflux disease without esophagitis; E78.00 Pure hypercholesterolemia, unspecified; I10 Essential (primary) hypertension; N30.10 Interstitial cystitis (chronic) without hematuria; Z12.31 Encounter for screening mammogram for malignant neoplasm of breast

== ENCOUNTER → 2024-06-03 15:39 | Outpatient (BNVA) | payer OTHER, SELFPAY | PROVIDERS: PCP Internal Medicine; Visit Provider Internal Medicine | DX: M96.1 Postlaminectomy syndrome, not elsewhere classified (principal); F41.1 Generalized anxiety disorder; J45.20 Mild intermittent asthma, uncomplicated; K21.9 Gastro-esophageal reflux disease without esophagitis; E78.00 Pure hypercholesterolemia, unspecified; I10 Essential (primary) hypertension; N30.10 Interstitial cystitis (chronic) without hematuria | CPT/HCPCS: 96127; 99212 ==

== ENCOUNTER → 2024-06-27 15:24 | Outpatient (BNV) | payer OTHER, SELFPAY | PROVIDERS: PCP Internal Medicine; Visit Provider Internal Medicine | DX: Z12.31 Encounter for screening mammogram for malignant neoplasm of breast (principal) | CPT/HCPCS: 77063; 77067 ==

== ENCOUNTER 2024-07-18 15:52 | Outpatient (REF) | payer OTHER, SELFPAY ==
--- OUTSIDE RECORDS SUMMARY | 2024-07-18 19:29 | XMS_ITS | Clinical Summary ---
Author Organization [facility] Address [address] [place] [address] Care Team Providers Care Orchid Transplanter Name Role Phone Carrie Marshall Primary Care Provider [phone] Allergies No known active allergies Encounters Date Type Department Care Team Description 07/12/2024 3:14 PM EST - 07/12/2024 6:43 PM EST Emergency [facility] Emergency Department [address] [place] [phone] Krishna Camacho MD Vasovagal near syncope [...] 75+ series) 2045 Procedures * Due to [place] [employer] law, this organization might not be sharing negative HIV tests. Procedure Name Priority Date/Time Associated Diagnosis Comments BASIC METABOLIC PANEL STAT 07/12/2024 1:28 PM EST CBC AUTO DIFFERENTIAL STAT 07/12/2024 1:28 PM EST HEART & VASCULAR - SCANNED 07/12/2024 from Last 3 Months Results * Due to [place] [employer] law, this organization might not be sharing negative HIV tests. * CBC Auto Differential (07/12/2024 1:28 PM EST) WBC 6.5 3.8 - 10.8 10*3/uL 07/12/2024 1:46 PM EST [facility] RBC 4.36 3.80 - 5.10 10*6/uL 07/12/2024 1:46 PM EST [facility] Hemoglobin 12.2 11.7 - 15.5 g/dL 07/12/2024 1:46 PM EST [facility] Hematocrit 37.8 35.0 - 45.0 % 07/12/2024 1:46 PM EST [facility] MCV 86.7 [...] - 0.95 10*3/uL 07/12/2024 1:46 PM EST [facility] Eosinophil # 0.10 0.02 - 0.50 10*3/uL 07/12/2024 1:46 PM EST [facility] Basophil # <0.03 0.00 - 0.20 10*3/uL 07/12/2024 1:46 PM EST [facility] nRBC % 0.0 /100 WBCs 07/12/2024 1:46 PM EST [facility] nRBC # <0.01 <0.01 10*3/uL 07/12/2024 1:46 PM EST [facility] Blood Structure of peripheral vein / Unknown Venipuncture / Unknown 07/12/2024 1:28 PM EST 07/12/2024 1:38 PM EST us Krishna Camacho MD LAB BLOOD ORDERABLES Final Re sult [facility] [address] [place] [address], * (ABNORMAL) Basic Metabolic Panel (07/12/2024 1:28 PM EST) NA 143 135 - 145 mmol/L 07/12/2024 2:05 PM EST [facility] K 4.0 3.5 - 5.3 mmol/L 07/12/2024 2:05 PM EST [facility] Cl 109(H) 98 - 107 mmol/L 07/12/2024 2:05 PM EST [facility] CO2 23 22 - 32 mmol/L 07/12/2024 2:05 PM EST [facility] BUN 12 7 - 23 mg/dL 07/12/2024 2:05 PM EST [facility] Creatinine 0.84 0.50 - 1.20 mg/dL 07/12/2024 2:05 PM EST [facility] Glucose 99 65 - 99 mg/dL 07/12/2024 2:05 PM EST [facility] Calcium 9.8 8.6 - 10.5 mg/dL 07/12/2024 2:05 PM EST [facility] Anion Gap 11 5 - 15 07/12/2024 2:05 PM EST [facility] eGFR 83 >=60 mL/min/1. 73m2 07/12/2024 2:05 PM EST [facility] Comment:The estimated glomer ular [...] MD LAB BLOOD ORDERABLES Final Re sult [facility] Organization Address City/State/ZIP Co de Phone Number [facility] [address] [place] [address], * HEART & VASCULAR - SCANNED (07/12/2024) Anatomical Region Laterality Modality Other us Onbase Scan Rodriguez SCANNED PROCEDURES Final Resu lt from Last 3 Months Insurance [employer] Care Teams Orchid Transplanter Relationship Specialty Start Date End Date Carrie Marshall [address] [place] [address] [place] [address] PCP - General Internal Medicine 07/12/24
--- OUTSIDE RECORDS SUMMARY | 2024-07-18 19:29 | XMS_ITS | Referral Summary ---
Author Organization [facility] Address [address] [place] [address] Care Team Providers Care Radiator Specialist Name Role Phone Carrie Marshall Primary Care Provider [phone] Encounters Date Type Department Care Team Description 07/12/2024 3:14 PM EST - 07/12/2024 6:43 PM EST Emergency [facility] Emergency Department [address] [place] [address] Krishna Camacho MD Vasovagal near syncope (Primary [...] Not on file Procedures * Due to [place] state law, this organization might not be sharing negative HIV tests. Procedure Name Priority Date/Time Associated Diagnosis Comments BASIC METABOLIC PANEL STAT 07/12/2024 1:28 PM EST CBC AUTO DIFFERENTIAL STAT 07/12/2024 1:28 PM EST HEART & VASCULAR - SCANNED 07/12/2024 from Last 3 Months Results * Due to [place] state law, this organization might not be [...] % 0.6 % 07/12/2024 1:46 PM EST [facility] Neutrophil # 3.95 1.50 - 7.80 10*3/uL 07/12/2024 1:46 PM EST [facility] Immature Grans # <0.03 <=0.03 10*3/uL 07/12/2024 1:46 PM EST [facility] Lymphocyte # 2.00 0.85 - 3.90 10*3/uL 07/12/2024 1:46 PM EST [facility] Monocyte # 0.40 0.20 - 0.95 10*3/uL 07/12/2024 1:46 PM EST [facility] Eosinophil # 0.10 0.02 - 0.50 10*3/uL 07/12/2024 1:46 PM EST [facility] Basophil # <0.03 0.00 - 0.20 10*3/uL 07/12/2024 1:46 PM EST [facility] nRBC % 0.0 /100 WBCs 07/12/2024 1:46 PM EST [facility] nRBC # <0.01 <0.01 10*3/uL 07/12/2024 1:46 PM EST [facility] Blood Structure of peripheral vein / Unknown Venipuncture / Unknown 07/12/2024 1:28 PM EST 07/12/2024 1:38 PM EST us Krishna Camacho MD LAB BLOOD ORDERABLES Final Re sult [facility] [address] [place] [address], * (ABNORMAL) Basic Metabolic Panel (07/12/2024 1:28 PM EST) NA 143 135 - 145 mmol/L 07/12/2024 2:05 PM EST [facility] K 4.0 3.5 - 5.3 mmol/L 07/12/2024 2:05 PM EST [facility] Cl 109(H) 98 - 107 mmol/L 07/12/2024 2:05 PM EST [facility] CO2 23 22 - 32 mmol/L 07/12/2024 2:05 PM EST [facility] BUN 12 7 - 23 mg/dL 07/12/2024 2:05 PM EST [facility] Creatinine 0.84 0.50 - 1.20 mg/dL 07/12/2024 2:05 PM EST [facility] Glucose 99 65 - 99 mg/dL 07/12/2024 2:05 PM EST [facility] Calcium 9.8 8.6 - 10.5 mg/dL 07/12/2024 2:05 PM EST [facility] Anion Gap 11 5 - 15 07/12/2024 2:05 PM EST [facility] eGFR 83 >=60 mL/min/1. 73m2 07/12/2024 2:05 PM EST [facility] Comment:The estimated glomer ular [...] BLOOD ORDERABLES Final Re sult [facility] [address] [place] [address], * HEART & VASCULAR - SCANNED (07/12/2024) Anatomical Region Laterality Modality Other us Onbase Scan Rodriguez SCANNED PROCEDURES Final Resu lt from Last 3 Months Insurance [employer] Care Teams Radiator Specialist Relationship Specialty Start Date End Date Carrie Marshall [address] [place] [address] [place] [address] PCP - General Internal Medicine 07/12/24
--- OUTSIDE RECORDS SUMMARY | 2024-07-18 19:29 | XMS_ITS | Encounter Summary ---
Author Organization [facility] Address [address] [place] [address] [address] [place] [address] Care Team Providers Care Computer Technologist Name Role Phone Unavailable Primary Care Provider Unavailabl e Encounter Details Date Type Department Care Team (Latest Contact Info) Description 05/05/2021 Abstract [facility] CONVERSIONS Dental, Provider, DDS Social History [...] Description 10/10/2024 3:00 PM EDT Office Visit [facility] ADULT [facility] [address] [place] [address] Viviana Prado documented as of this encounter Visit Diagnoses Not on filedocumented in this encounter
--- OUTSIDE RECORDS SUMMARY | 2024-07-18 19:29 | XMS_ITS | Clinical Summary ---
Author Organization [employer] [facility] Address [address] [place] [address] Care Team Providers Care Gun Repair Clerk Name Role Phone Unavailable Primary Care Provider [...] MCG/ACT aerosol powder 3 Active HYDROcodone-fabrice taminophen (Ozone) 5-325 MG tablet TAKE ONE TABLET BY [...] Description 05/31/2024 1:30 PM EST Office Visit [facility] [address] [place] [address] Rosi Nowak DMD 05/29/2024 1:00 PM EST Office Visit [facility] [address] [place] [address] Omkar Fuller DMD History of tooth extraction, unspecified edentulism class (Primary Dx) 05/06/2024 3:00 PM EST Office Visit [facility] ADULT [facility] [address] [place], [place] [phone] Viviana Prado Dental calculus (Primary Dx); Dental plaque 04/24/2024 2:00 PM EST Office Visit [facility] [address] [place] [address] Omkar Fuller DMD from Last 3 Months [...] Description 10/10/2024 3:00 PM EDT Office Visit [facility] [address] [place] [address] Viviana Prado Health Maintenance Due Date Last [...]
--- OUTSIDE RECORDS SUMMARY | 2024-07-18 19:29 | XMS_ITS | Encounter Summary ---
Author Organization [facility] Address [address] [place] [address] Care Team Providers Care Nurse Executive Name Role Phone Carrie Marshall Primary Care Provider [phone] Reason for Visit * Reason Comments Pre Syncope Encounter Details Date Type Department Care Team (Late st Contact Info) Description 07/12/2024 3:14 PM EST - 07/12/2024 6:43 PM EST Emergency [facility] Emergency Department [address] [place] [address] Krishna Camacho MD [address] [place] [address] [place] [address] Vasovagal near syncope (Primary Dx) Discharge Disposition: [...] sent through Care Everywhere. * Vasovagal Response ([place]) documented in this encounter ED Notes * [...] addressed. Ambulated successfully here without symptoms, discharged. [facility] ED Course as of 07/13/24 0108 MonJul 12, 2024 1638 EKG interpreted independently by myself in the absence of swing type lathe operator demonstrates normal sinus rhythm, no ST segment ischemic changes. [] ED Course User Index [] MD Wendy Lora : 1970 CSN: [id number] History reviewed. No pertinent past medical history. [...] by me. Wendy Shabazz : 1970 CSN: [id number] documented in this encounter Plan of Treatment Not on file documented as of this encounter Procedures * Due to [place] [employer] law, this organization might not be sharing negative HIV tests. Procedure Name Priority Date/Time Associated Diagnosis Comments CBC AUTO DIFFERENTIAL STAT 07/12/2024 1:28 PM EST BASIC METABOLIC PANEL STAT 07/12/2024 1:28 PM EST HEART & VASCULAR - SCANNED 07/12/2024 documented in this encounter Results * Due to [place] [employer] law, this organization might not be sharing [...] - 32 mmol/L 07/12/2024 2:05 PM EST [facility] BUN 12 7 - 23 mg/dL 07/12/2024 2:05 PM EST [facility] Creatinine 0.84 0.50 - 1.20 mg/dL 07/12/2024 2:05 PM EST [facility] Glucose 99 65 - 99 mg/dL 07/12/2024 2:05 PM EST [facility] Calcium 9.8 8.6 - 10.5 mg/dL 07/12/2024 2:05 PM EST [facility] Anion Gap 11 5 - 15 07/12/2024 2:05 PM EST [facility] eGFR 83 >=60 mL/min/1. 73m2 07/12/2024 2:05 PM EST [facility] Comment:The estimated glomer ular [...] MD LAB BLOOD ORDERABLES Final Re sult [facility] [address] [place] [address], [place] * CBC Auto Differential (07/12/2024 1:28 [...] - 33.0 pg 07/12/2024 1:46 PM EST [facility] MCHC 32.3 32.0 - 36.0 g/dL 07/12/2024 1:46 PM EST [facility] RDW 12.6 11.0 - 15.0 % 07/12/2024 1:46 PM EST [facility] Platelets 258 [...] <0.03 <=0.03 10*3/uL 07/12/2024 1:46 PM EST [facility] Lymphocyte # 2.00 0.85 - 3.90 10*3/uL 07/12/2024 1:46 PM EST [facility] Monocyte # 0.40 0.20 - 0.95 10*3/uL 07/12/2024 1:46 PM EST [facility] Eosinophil # 0.10 0.02 - 0.50 10*3/uL 07/12/2024 1:46 PM EST [facility] Basophil # <0.03 0.00 - 0.20 10*3/uL 07/12/2024 1:46 PM EST [facility] nRBC % 0.0 /100 WBCs 07/12/2024 1:46 PM EST [facility] nRBC # <0.01 <0.01 10*3/uL 07/12/2024 1:46 PM EST [facility] Blood Structure of peripheral vein / Unknown Venipuncture / Unknown 07/12/2024 1:28 PM EST 07/12/2024 1:38 PM EST us Krishna Camacho MD LAB BLOOD ORDERABLES Final Re sult [facility] [address] [place] [address], * HEART & VASCULAR - SCANNED (07/12/2024) [...] RN) documented in this encounter Care Teams Nurse Executive Relationship Specialty Start Date End Date Carrie Marshall [address] [place] [address] dr Viola [place], [place] [address] PCP - General Internal Medicine 07/12/24 documented as of this encounter
--- OUTSIDE RECORDS SUMMARY | 2024-07-18 19:29 | XMS_ITS | Encounter Summary ---
Author Organization [facility] Address [address] [place] [address] [address] [place] [address] Care Team Providers Care Men'S Custom Hair Piece Consultant Name Role Phone Unavailable Primary Care Provider Unavailabl e Encounter Details Date Type Department Care Team (Latest Contact Info) Description 09/26/2018 Abstract [facility] CONVERSIONS Dental, Provider, DDS Social History [...] Description 10/10/2024 3:00 PM EDT Office Visit [facility] ADULT [facility] [address] [place] [address] Viviana Prado documented as of this encounter Visit Diagnoses Not on filedocumented in this encounter
== END 2024-07-18 15:53 | disposition home or self-care (01) ==
LOC: HO.LNP 15:52
PROVIDERS: PCP Internal Medicine; Visit Provider Urology
DX: N30.10 Interstitial cystitis (chronic) without hematuria (principal); R10.2 Pelvic and perineal pain; R39.89 Other symptoms and signs involving the genitourinary system; Z13.9 Encounter for screening, unspecified; Z79.899 Other long term (current) drug therapy
CPT/HCPCS: 51798; 81003; 87086; 99212

== ENCOUNTER 2024-07-18 15:52 | Outpatient (AMB) | payer OTHER, SELFPAY ==
--- NOTE | 2024-07-18 15:57 | A.OFFVIS_ITS ---
Intake Visit Reasons: 6M IC Follow up Intake Note: Patient is present for 6m IC follow up Urology Meds: gabapentin, Uribel, Ibuprofen, Estradiol Antibiotic Allergies: none Blood Thinners: none Last PVR: Todays PVR: Prevention Coordinator Required: No Accompanied by: Child Allergies animal dander [ANIMAL HAIR] Allergy (Intermediate, Verified 07/18/24 16:10) ASTHMA, HIVES lactose [Lactose] Allergy (Mild, Verified 07/18/24 16:10) DIARRHEA HPI Comments Details: 07/18/24--suture regarding Wendy she is 54-year-old female who is followed for chronic interstitial cystitis she was last seen or last evaluated 12/07/2023 she is currently on gabapentin and Uribel. 12/07/23--Telehealth FU-Wendy is being followed for interstitial cystitis. Comorbidity cervical and lumbar radiculopathy. She is tapered off of the Elmiron. She is managed with cystoscopy hydrodistention as needed. She watches her diet. And she is aware of her IC stressors. She complains that her pain symptoms have been worsening off of the Elmiron. Discussed restarting elmiron and will also add gabapentin. 10/20/23--Wendy is being followed for interstitial cystitis. Comorbidity cervical and lumbar radiculopathy. She is tapered off of the Elmiron. She is managed with cystoscopy hydrodistention as needed. Last cystoscopy hydrodistention was on 08/08/2023--she watches her diet. 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 She states that she is going through flare. I have discussed using NSAIDs and Pyridium p.r.n.. Motrin 800 mg every 12 hours p.r.n. sent to the pharmacy. The patient is on a pain management regimen for her radiculopathy condition. 08/31/2023--Wendy is being followed for interstitial cystitis. She is status post repeat cystoscopy hydrodistention on 08/08/2023--cystoscopy findings bladder capacity post post distention 900 mL no glomerulations observed. The patient states that she has been doing better since the cystoscopy. She is aware that she has stress-induced IC flare ups. 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 She is planning to poll[place] ve her moved to an assisted living facility which she feels will be beneficial to her mother and take some of the stress away. She denies dysuria. She denies gross hematuria or urinary incontinence. Urinalysis: Urinalysis negative blood negative. Plan follow-up in 6 months. 07/26/2023-- Wendy is a 53-year-old female who presents today to the office for a follow-up. mother with alzheimers stress exacerbates IC symptoms, urge. She has been doing the bladder instillations with the nursing staff. using Prelief with coffee. 2 tabs. Discussed repeat cysto/hydro. 03/27/23-- Wendy is a 53-year-old female who was diagnosed with IC in 2015 and was started on Elmiron. The patient is currently on 200 mg twice a day. Co-morbidity: cervical spine condition and status post fusion of C3 and C4 in November 2016 and disc replacement between C5 and C6 in March 2019. She is has chronic pain and is prescribed Vicodin by pain management. She presents to the office for 1-month interstitial cystitis follow-up. She is still using the Elmiron 200 mg BID. I discussed tapering off the elmiron due to reported side effects with buttermaker continuous churn use. She states when she tried lowering the elmiron use, she had bladder pain. I prescribed hydroxyzine and she states when she increased dose from 25 to 50 mg she had numbness. She states that she has seen Dr. Myles, ophthalmology and was told that there was no retinal damage. States following IC diet. One coffee in the morning during the week. Does not consume tomatoes or citrus foods. Consumes alcohol once a week and mentions occasional worsening of bladder pain due to alcohol. she is using prelief prn, when she consumes pizza, pasta, or alcohol. Evaluation today UA: Blood: negative, leukocytes: negative. Discontinue Elmiron. Ordered liver function testing. Will start bladder instillations with heparin, lidocaine, and solumedrol with nursing staff, daily for 5 days, then bi weekly x 2, then weekly x 8 then reevaluate. FU with me in 3 months [facility] Medical History Chronic pain of left ankle IBS (irritable bowel syndrome) Anxiety Depression Asthma Hx of flexible sigmoidoscopy COVID-19 vaccine series completed History of COVID-19 Dental abscess Dental infection Sinusitis, maxillary, chronic Acute sinusitis Diarrhea Cervical radiculopathy ASCUS (atypical squamous cells of undetermined significance) on gynecologic Papanicolaou smear complicating , antepartum Lumbar degenerative disc disease GERD (gastroesophageal reflux disease) Hypercholesterolemia Insomnia Hypertension Interstitial cystitis Degenerative disc disease, cervical Surgical History History of foot surgery Hx of cystoscopy History of surgery History of neck surgery S/P cervical discectomy H/O nasal septoplasty History of ankle surgery Status post laparoscopic surgery History of wisdom tooth extraction Family History Father PTSD (post-traumatic stress disorder) Mental health disorder Mother No problems noted. Maternal Grandmother Breast cancer Maternal Grandfather Myocardial infarction Maternal Uncle Past heart attack Skin cancer Myocardial infarction Other Substance use disorder Social History Housing: House Alcohol intake: current Comment: once a week 2 drinks Patient Tobacco Use Status: Never used Tobacco Years Smoked: quit 2009, CBD, vaping e-Cigarette/Vaping Use: Never Used Second Hand Smoke Exposure: No service: No Current occupational status: unemployed Cognitive needs: No Hearing needs: No Vision needs: Yes Review of Systems Const All systems reviewed & are unremarkable except as noted in HPI and below Reports no additional complaints Eyes Reports no additional complaints ENT Reports no additional complaints Card Reports no additional complaints Resp Reports no additional complaints GI Reports no additional complaints Reports as per HPI Musc Reports no additional complaints Skin/Breast Reports system reviewed and no additional complaints, except as documented Neuro Reports no additional complaints Psych Reports no additional complaints Endo Reports no additional complaints Kyler/Lymph Reports no additional complaints Aller/Immun Reports no additional complaints Office Procedures Post Void Residual Post Residual Void Post Void Residual (PVR): 0 [id number] Void Residual by ultrasound Results AMB Urinalysis, Automated UA Leukoctes 70 David/uL Last Edit by Viji Hernandez MA on 07/18/24 16:31 UA Nitrite Negative Last Edit by Viji Hernandez MA on 07/18/24 16:31 UA Urobilinogen 0.2 mg/dL Last Edit by Viji Hernandez MA on 07/18/24 16:31 UA Protein 0 mg/dL Last Edit by Viji Hernandez MA on 07/18/24 16:31 UA pH 6.0 Last Edit by Viji Hernandez MA on 07/18/24 16:31 UA Blood 0 Neel/uL Last Edit by Viji Hernandez MA on 07/18/24 16:31 UA Specific [place] 1.010 Last Edit by Viji Hernandez MA on 07/18/24 16:31 UA Ketone Negative Last Edit by Viji Hernandez MA on 07/18/24 16:31 UA Bilirubin 0 mg/dL Last Edit by Viji Hernandez MA on 07/18/24 16:31 UA Glucose 0 mg/dL Last Edit by Viji Hernandez MA on 07/18/24 16:31 Assessment & Plan Assessment & Plan Orders: Orders AMB Post Void Residual by ultrasound Today N30.10 - Interstitial cystitis (chronic) without hematuria AMB Urinalysis Automated Today Z13.9 - Encounter for screening, unspecified Coding CPT Codes Post Residual Void - PVR CPT Code: 20961-Aaka Void Residual by ultrasound ([id number])
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
--- OUTSIDE RECORDS SUMMARY | 2024-07-18 19:08 | XMS_ITS | Clinical Summary ---
Author Organization [facility] Address [address] [facility] [address] [place] [address] Care Team Providers Care Museum Assistant Name Role Phone Unavailable Primary Care Provider Unavailabl e Allergies Active Allergy Reactions Criticality Noted Date Comments Hydroxyzine 12/22/2023 Other Reaction(s): Not available Lactose 11/11/2022 Other reaction(s): intoerance Medications buPROPion (Wellbutrin) 75 MG tablet TAKE 1 TABLET BY MOUTH DAILY FOR 90 DAYS; TAKE WITH 150 MG EVERY DAY 3 Active Sodium Fluoride (PreviDent 5000 Booster Plus) 1.1 % paste Apply 1 application to teeth 2 times daily. 112 g 3 3 Active dicyclomine (Bentyl) 10 MG capsule TAKE 2 CAPSULES 20 MG) BY MOUTH 2 TIMES A DAY. 3 Active Banophen 50 MG capsule TAKE ONE CAPSULE BY MOUTH AT BEDTIME NEEDED FOR ALLERGY SYMPTOMS 3 Active escitalopram (Lexapro) 10 MG tablet Take 10 mg by mouth in the morning. 3 Active Yuvafem 10 MCG tablet vaginal tablet 3 Active famotidine (Pepcid) 20 MG tablet Take 20 mg by mouth 2 times daily. 3 Active fexofenadine (Vernell) 180 MG tablet TAKE ONE TABLET BY MOUTH EVERY DAY NEEDED FOR ALLERGY SYMPTOMS 3 Active fluticasone (Flonase) 50 MCG/ACT nasal spray USE 2 SPRAYS INTRANASALLY DAILY. 3 Active Advair Diskus 250-50 MCG/ACT aerosol powder 3 Active HYDROcodone-fabrice taminophen (Juliaetta) 5-325 MG tablet TAKE ONE TABLET BY MOUTH THREE TIMES A DAY IF NEEDED FOR PAIN 3 Active lisinopril 5 MG tablet Take 5 mg by mouth in the morning. 3 Active loperamide (Imodium) 2 MG capsule TAKE ONE CAPSULE BY MOUTH FOUR TIMES A DAY NEEDED FOR LOOSE STOOL 3 Active Menthol Cold/Hot 5 % patch APPLY 1 PATCH TOPICALLY DAILY NEEDED FOR PAIN 3 Active Meth-Hyo-M Bl-Na Phos-Ph Daniel (Uro-MP) 118 MG capsule 3 Active montelukast (Singulair) 10 MG tablet Take 10 mg by mouth at bedtime. 3 Active zolpidem (Ambien) 10 MG tablet Take 10 mg by mouth at bedtime. 3 Active gabapentin (Neurontin) 300 MG capsule Active Active Problems Problem Noted Date Diagnosed Date Localized gingival recession 05/11/2023 Dental plaque 05/11/2023 Encounters Date Type Department Care Team Description 05/31/2024 1:30 PM EST Office Visit [facility] ADULT D[facility] [address] [place] [address] Rosi Nowak DMD 05/29/2024 1:00 PM EST Office Visit [facility] ADULT [facility] [address] [place] [address] Omkar Fuller DMD History of tooth extraction, unspecified edentulism class (Primary Dx) 05/06/2024 3:00 PM EST Office Visit [facility] ADULT DENTAL [address] [place], [place] [id number] Viviana Prado Dental calculus (Primary Dx); Dental plaque 04/24/2024 2:00 PM EST Office Visit [facility] ADULT DENTAL [address] [place] [address] Omkar Fuller DMD from Last 3 Months Social History Tobacco Use Types Packs/Day Years Used Date Smoking Tobacco: Never Smokeless Tobacco: Never Tobacco Cessation:Counseling Given: Not Answered Comments Unknown Sex and Gender Information Value Date Recorded Sex Assigned at Female 03/21/2022 10:19 AM EDT Legal Sex Female 10:19 AM EDT Gender Identity Female 03/21/2022 10:19 AM EDT Sexual Orientation Straight 03/23/2022 4: 16 PM EDT Sexual Orientation Don't know 03/23/2022 4: 16 PM EDT Last Filed Vital Signs Vital Sign Reading Time Taken Comments Blood Pressure 132/78 05/29/2024 1:23 PM EST Pulse 68 05/11/2023 8:08 AM EST Temperature - - Respiratory Rate - - Oxygen Saturation - - Inhaled Oxygen Concentration - - Weight - - Height - - Body Mass Index - - Plan of Treatment Upcoming Encounters Date Type Department Care Team (Late st Contact Info) Description 10/10/2024 3:00 PM EDT Office Visit [facility] ADULT DENTAL [address] [place] [address] Viviana Prado Health Maintenance Due Date Last Done Comments CT Colonography 1970 Colonoscopy 1970 Colorectal Cancer Screening 1970 Depression Screening 1970 FIT DNA/Cologuard 1970 FIT 1970 FOBT 1970 HIV Screening 1970 SDOH Screening 1970 Sigmoidoscopy 1970 Alcohol/Substance Use Screening 1982 Hepatitis C Screening 02/03/1988 Pap Smear 1991 Cervical Cancer Screening 02/03/2000 HPV/Cotest 02/03/2000 Mammogram 2010 Pneumococcal Vaccine: 50+ Years (2 of 2 - PCV) 04/12/2022 04/12/2021 COVID-19 Vaccine ( - season) 2024 08/31/2020 Dental X-Ray: Full Mouth 04/22/2024 04/21/2021, 07/20 Dental Oral Exam 06/24/2024 12/22/2023, , 12/17/2021, Additional history exists Dental Prophylaxis 11/05/2024 05/06/2024, 1 07/12/2022, 12/24/2021, Additional history exists Dental X-Ray: Bitewings 12/22/2024 12/22/19 24, 12/17/2021, 09/03/2021, Additional history exists DTaP/Tdap/Td Vaccines (2 - Td or Tdap) 04/24/2025 04/24/2015, 11/13/1997 Tobacco Screening 05/31/2025 05/31/2024 RSV Patients and Patients Aged 60 years or older (1 - 1-dose 75+ series) 2045 Hepatitis B Vaccines Completed 12/08/2000, 03/13/1999, 01/28/1999 Zoster Vaccines Completed 10/07/2023, 11/02/2022 Influenza Vaccine Completed 02/26/2024, , 05/05/2022, Additional history exists HIB Vaccines Aged Out No longer eligi ble based on patient's age to complete this topic HPV Vaccines Aged Out No longer eligi ble based on patient's age to complete this topic Hepatitis A Vaccines Aged Out No long er eligible based on patient's age to complete this topic IPV Vaccines Aged Out No longer eligi ble based on patient's age to complete this topic Meningococcal Vaccine Aged Out No charly zuleima eligible based on patient's age to complete this topic RSV under 20 months Aged Out No longe r eligible based on patient's age to complete this topic Rotavirus Vaccines Aged Out No longer eligible based on patient's age to complete this topic Procedures Procedure Name Priority Date/Time Associated Diagnosis Comments CASE PRESENTATION, DETAILED AND EXTENSIVE TREATMENT PLANNING Routine 05/31/2024 1:30 PM EST LIMITED ORAL EVALUATION - PROBLEM FOCUSED Routine 05/31/2024 1:30 PM EST Max BUCCAL / LABIAL FRENECTOMY (FRENULECTOMY) Routine 05/29/2024 1:00 PM EST CASE PRESENTATION, DETAILED AND EXTENSIVE TREATMENT PLANNING Routine 05/06/2024 3:00 PM EST ORAL HYGIENE INSTRUCTIONS Routine 05/06/2024 3:00 PM EST Dental calculus Dental plaque PROPHYLAXIS - ADULT Routine 05/06/2024 3 :00 PM EST Dental calculus Dental plaque LIMITED ORAL EVALUATION - PROBLEM FOCUSED Routine 04/24/2024 2:00 PM EST BITEWINGS - 4 RADIOGRAPHIC IMAGES Routine 12/22/2023 2:00 PM EDT PERIODIC ORAL EVALUATION - ESTABLISHED PATIENT Routine 12/22/2023 2:00 PM EDT INTRAORAL - COMPLETE SERIES OF RADIOGRAPHIC IMAGES Routine 04/21/2021 12:00 AM EST from Last 3 Months or Most Recently Relevant to Health Maintenance Insurance [place] AD[place]
--- OUTSIDE RECORDS SUMMARY | 2024-07-18 19:08 | XMS_ITS | Referral Summary ---
Author Organization [facility] Address [address] [place] [address] Care Team Providers Care Bow Maker Name Role Phone Carrie Marshall Primary Care Provider [phone] Encounters Date Type Department Care Team Description 07/12/2024 3:14 PM EST - 07/12/2024 6:43 PM EST Emergency [facility] Emergency Department [address] [place] [address] Krishna Camacho MD Vasovagal near syncope (Primary Dx) Discharge Disposition: Home or Self Care (01) from Last 3 Months Allergies No known active allergies Social History Tobacco Use Types Packs/Day Years Used Date Smoking Tobacco: Never Assessed Comments Unknown Sex and Gender Information Value Date Recorded Sex Assigned at Female 07/12/2024 12:52 PM EST Legal Sex Female 10:57 AM EDT Gender Identity Not on file Sexual Orientation Not on file Last Filed Vital Signs Vital Sign Reading [...] Mass Index - - Plan of Treatment Not on file Procedures * Due to [place] state law, this organization might not be sharing negative HIV tests. Procedure Name Priority Date/Time Associated Diagnosis Comments BASIC METABOLIC PANEL STAT 07/12/2024 1:28 PM EST CBC AUTO DIFFERENTIAL STAT 07/12/2024 1:28 PM EST HEART & VASCULAR - SCANNED 07/12/2024 from Last 3 Months Results * Due to [place] state law, this organization might not be sharing negative HIV tests. * CBC Auto Differential (07/12/2024 1:28 PM [...] - 33.0 pg 07/12/2024 1:46 PM EST [facility] MCHC 32.3 32.0 - 36.0 g/dL 07/12/2024 1:46 PM EST [facility] RDW 12.6 11.0 - 15.0 % 07/12/2024 1:46 PM EST [facility] Platelets 258 [...] % 0.6 % 07/12/2024 1:46 PM EST [facility] Neutrophil # 3.95 1.50 - 7.80 10*3/uL 07/12/2024 1:46 PM EST [facility] Immature Grans # <0.03 <=0.03 10*3/uL 07/12/2024 1:46 PM EST [facility] Lymphocyte # 2.00 0.85 - 3.90 10*3/uL 07/12/2024 1:46 PM EST [facility] Monocyte # 0.40 0.20 - 0.95 10*3/uL 07/12/2024 1:46 PM EST [facility] Eosinophil # 0.10 0.02 - 0.50 10*3/uL 07/12/2024 1:46 PM EST [facility] Basophil # <0.03 0.00 - 0.20 10*3/uL 07/12/2024 1:46 PM EST [facility] nRBC % 0.0 /100 WBCs 07/12/2024 1:46 PM EST [facility] nRBC # <0.01 <0.01 10*3/uL 07/12/2024 1:46 PM EST [facility] Blood Structure of peripheral vein / Unknown Venipuncture / Unknown 07/12/2024 1:28 PM EST 07/12/2024 1:38 PM EST us Krishna Camacho MD LAB BLOOD ORDERABLES Final Re sult [facility] [address] [place] [address], * (ABNORMAL) Basic Metabolic Panel (07/12/2024 1:28 PM EST) NA 143 135 - 145 mmol/L 07/12/2024 2:05 PM EST [facility] K 4.0 3.5 - 5.3 mmol/L 07/12/2024 2:05 PM EST [facility] Cl 109(H) 98 - 107 mmol/L 07/12/2024 2:05 PM EST [facility] CO2 23 22 - 32 mmol/L 07/12/2024 2:05 PM EST [facility] BUN 12 7 - 23 mg/dL 07/12/2024 2:05 PM EST [facility] Creatinine 0.84 0.50 - 1.20 mg/dL 07/12/2024 2:05 PM EST [facility] Glucose 99 65 - 99 mg/dL 07/12/2024 2:05 PM EST [facility] Calcium 9.8 8.6 - 10.5 mg/dL 07/12/2024 2:05 PM EST [facility] Anion Gap 11 5 - 15 07/12/2024 2:05 PM EST [facility] eGFR 83 >=60 mL/min/1. 73m2 07/12/2024 2:05 PM EST [facility] Comment:The estimated glomer ular filtration rate (eGFR) is calculated using a new formula developed by the NKF-ASN task force to eliminate race-based correction factors. The new formula uses serum/plasma creatinine, age, and gender to determine eGFR. A value below 60mls/min might indicate kidney disease and will be flagged. For additional information, see Hyacinth akhtar al, Am J Kidney Dis. 2021;79(2):268- 288, A Unifying Approach for GFR estimation: Recommendations of the NKF-ASN Task Force on Reassessing the Inclusion of Race in Diagnosing Kidney Disease . Blood Structure of peripheral vein / Unknown Venipuncture / Unknown 07/12/2024 1:28 PM EST 07/12/2024 1:38 PM EST us Krishna Camacho MD LAB BLOOD ORDERABLES Final Re sult [facility] [address] [place] [address], * HEART & VASCULAR - SCANNED (07/12/2024) Anatomical Region Laterality Modality Other us Onbase Scan Rodriguez SCANNED PROCEDURES Final Resu lt from Last 3 Months Insurance [employer] Care Teams Bow Maker Relationship Specialty Start Date End Date Carrie Marshall [address] [place] [address] [place] [address] PCP - General Internal Medicine 07/12/24
--- OUTSIDE RECORDS SUMMARY | 2024-07-18 19:08 | XMS_ITS | Encounter Summary ---
Author Organization [email or web address] [facility] Address [address] [place] [address] [address] [place] [address] Care Team Providers Care Alumni Relations Manager Name Role Phone Unavailable Primary Care Provider Unavailabl e Encounter Details Date Type Department Care Team (Latest Contact Info) Description 09/26/2018 Abstract [facility] CONVERSIONS Dental, Provider, DDS Social History Tobacco Use Types Packs/Day Years Used Date Smoking Tobacco: Never Assessed Comments Unknown Sex and Gender Information Value Date Recorded Sex Assigned at Female 03/21/2022 10:19 AM EDT Legal Sex Female 10:19 AM EDT Gender Identity Female 03/21/2022 10:19 AM EDT Sexual Orientation Straight 03/23/2022 4: 16 PM EDT Sexual Orientation Don't know 03/23/2022 4: 16 PM EDT documented as of this encounter Plan of Treatment Upcoming Encounters Date Type Department Care Team (Late st Contact Info) Description 10/10/2024 3:00 PM EDT Office Visit [facility] ADULT DENTAL [address] [place] [address] Viviana Prado documented as of this encounter Visit Diagnoses Not on filedocumented in this encounter
--- OUTSIDE RECORDS SUMMARY | 2024-07-18 19:08 | XMS_ITS | Data Portability ---
Author Organization [facility] [employer] Address [address] [place] [address] [place] [address] Care Team Providers Care Emt/Dispatcher Name Role Phone WILBER DACOSTA Referring Provider Unavailable WILBER DACOSTA Referring Provider [phone] WILBER DACOSTA Primary Care Provider Assessment Encounter [...] validate her worry about getting Alzheimer's disease? r esearch has shown that it is the most scary disease across the [place] population of those greater than 50 years old. Her fear is heightened by her mother's dementia and the dementia of her grandmother and her grandmother sister. There is symptoms all emerged at a much later date than the patient's age? 5 3. Metabolic dysregulation may cause cognitive slowing and we agree that she will do that blood work. She will follow-up to talk about the results. She mentions other neurological symptoms? n kenzie pain, left shoulder and hip pain. I tell her that the only thing that I might be able to do for these is physical therapy. She notes that she is under care of of pain management for her pain. I tell her I might not be able to do much more. She understands. DANAE Shabazz (Fernando) September 05, 2023 Laboratories four metabolic dysregulation [...] have clinical sites close to this area, [place] or close by major centers such as [place] or [facility]. She understood and took some notes. I [...] she has been left ankle eversion weakness? s he has attributed to tendon transfer during one [...] validate her worry about getting Alzheimer's disease? r esearch has shown that it is the most scary disease across the [place] population of those greater than 50 years old. Her fear is heightened by her mother's dementia and the dementia of her grandmother and her grandmother sister. There is symptoms all emerged at a much later date than the patient's age? 5 3. Metabolic dysregulation may cause cognitive slowing and we agree that she will do that blood work. She will follow-up to talk about the results. She mentions other neurological symptoms? n kenzie pain, left shoulder and hip pain. I [...] None recorded. Lab vitamin B12, serum 024 [facility], [address] [place] [address], [place], [address], 4 11:16:50 folate, serum 024 ashtynefebcarine 1 [facility], [address] [facility], [place], [address], 4 15:38:59 mma (methylma lonic acid), serum 024 [facility], [address] [place] [address], [address], 4 11:19:07 homocyste ine, serum or plasma 024 [facility], [address] [place] [address], [address], 4 11:19:12 TSH, serum or plasma - E07.9 [address] [facility] [address] [place] [address] Laboratory, [address] [place] [address], [address], 4 15:39:00 T4, free, serum - E07.[address] [facility], [address] [place] [address], [address], 4 15:39:00 vitamin D, 25-hydrox y, total, serum - E55.[address] [facility], [address] [place] [address], [address], 4 15:38:59 RPR (rapid plasma reagin), serum - A53.[address] [facility], [address] [place] [address], [address], 4 15:39:00 Referral None recorded. Procedures None recorded. Surgeries None recorded. Imaging None recorded. Medication Orders None recorded. Patient TargetsNo targets recorded. Patient Instructions Encounter Date Encounter Id Patient Instructions Last Modified By Organization Details Last Modified Time 09/05/2023 [id number] Discussion acros s issues of diagnoses and management and same day associated chart review and management greater than 50% greater than 60 minutes mrossen Not available 09/05/2023 14:45:21 10/24/2023 [id number] Discussion acros s issues of diagnoses and [...] Not available 09/05/2023 [id number] RxNorm Veena Cisneros [facility] 13:09:32 Medications Name Sig Start Date Stop [...] Updated DateTime 09/05/2023 165.1 cm 25 kg/m2 52427.86 g 12 /min Veena Cisneros [facility] Neurology [facility] 09/05/2023 13:09:20 Social History Question Answer Notes LastModified by Organizat ion Details LastModified Time Tobacco Smoking Status Never Smoker Veena guillen [facility] 09/05/2023 13:11:52 What Is Your Level Of Alcohol Consumption? Occasional Information not available 09/05/2023 What Is Your Level Of Caffeine Consumption? Moderate 1 Cup Daily Information not available 09/05/2023 What Is The Highest Grade Or Level Of School You Have Completed Or The Highest Degree You Have Received? [id number] Information not available 09/05/2023 Which Of Your [...] available 2023 13:10:54 Medical History Condition Response Head Trauma/Injury N Depression Y Lung Disease N COPD or emphysema N Spine Problems N Obstructive Sleep Apnea N Alcoholism N Autoimmune disease N Arthritis N Developmental Problems N Cancer N Stroke N Heartburn, acid reflux, GERD Y Vitamin D Deficiency N Liver Disease N Fibromyalgia N Headaches Y Kidney Disease N Claustrophobia N Hospitalizations N High Blood Pressure or Hypertension Y Thyroid Problems N Brain Tumors N Encephalitis N Vitamin B12 deficiency N PTSD N Heart Attack ([place]) N Diabetes N Bleeding Disorder N Cerebral Palsy N Tuberculosis N Neck Problems N Back Problems N Asthma Y Epilepsy/Seizures N Bipolar Disorder N Sleep Disorder N Aneurysm N Hepatitis N Heart Disease N High Cholesterol or Hyperlipidemia N Osteoporosis N Gynecological HistoryNo gynecological history recorded. 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 445217423 D51.0 Abnormal t hyroid hormone 026785667 R94.6 Vitamin D deficiency 347 19167 E55.9 Syphilis 86591300 A53.9 [id number] Krishna Jenkins MD [facility] [address] [place] [address] [place] [address] 10/24/2023 16:39:30 10/30/2023 15:36:01 Mild neurocognitive disorder 052941083 G31.84 Health Concerns Section Related Observation LastModified by Organization Detai ls LastModified Time None Recorded Concern Status LastModified by Organization Details LastModified Time None Recorded Advance Directives Directive None Recorded Payers Encounter Date Sequence Insurance Name Policy Number Policy Post Covered Member ID Post Member ID Guarantor Name 09/05/2023 1 [facility] (MEDICAID HMO) JOSE Shabazz [id number] Wendy Shabazz 10/24/2023 1 [facility] PLAN (MEDICAID HMO) JOSE Shabazz [id number] Wendy Shabazz Notes Date Note Type Note [...] for her mother last week for a [employer] application. She had difficulty so that she needed to obtain guidance from an eldercare social services designee. She thinks an earlier time she would not have needed such guidance. As an example, in 2007 she applied for medical guardianship for her mother was of her mother's of schizophrenia. She went to court, filled out forms and appeared in court all on her own, without an packer sausage and wiener.She lives with her mother and her 10-year-old daughter who is healthy for the most part? She has ADD. She cooks occasionally, sometimes [...] since she has started depending on GPS? f or the past 5 to 10 years. Before that, she was excellent at directions. She does the finances for the household. She has always struggled, predominantly from insufficient motivation to start and pursue the task. It seems more down Musing? recently. She has a long history of [...] this is a possibility. Krishna Jenkins MD [address] [place] [address], [phone], [facility] Neurology [facility] 09/05/2023 14:45:37 10/24/2023 text/html Neurology follow -up [...] for her mother last week for a [employer] application. She had difficulty so that she needed to obtain guidance from an eldercare social services designee. She thinks an earlier time she would not have needed such guidance. As an example, in 2007 she applied for medical guardianship for her mother was of her mother's of schizophrenia. She went to court, filled out forms and appeared in court all on her own, without an packer sausage and wiener.She lives with her mother and her 10-year-old daughter who is healthy for the most part? She has ADD. She cooks occasionally, sometimes [...] since she has started depending on GPS? f or the past 5 to 10 years. Before that, she was excellent at directions. She does the finances for the household. She has always struggled, predominantly from insufficient motivation to start and pursue the task. It seems more down Musing? recently. She has a long history of [...] this is a possibility. Krishna Jenkins MD [address] [place] [address] [place], [phone], [facility] Neurology [facility] 10/24/2023 18:29:29 OBGyn Episode No OBEpisode recorded.
--- OUTSIDE RECORDS SUMMARY | 2024-07-18 19:08 | XMS_ITS | Clinical Summary ---
Author Organization [facility] Address [address] [place] [address] Care Team Providers Care Rn Labor Delivery Name Role Phone Carrie Marshall Primary Care Provider [phone] Allergies No known active allergies Encounters Date Type Department Care Team Description 07/12/2024 3:14 PM EST - 07/12/2024 6:43 PM EST Emergency [facility] Emergency Department [address] [place] [address] Krishna Camacho MD Vasovagal near syncope (Primary Dx) Discharge Disposition: Home or Self Care (01) from Last 3 Months Social History Tobacco [...] Mass Index - - Plan of Treatment Health Maintenance Due Date Last Done Comments Cervical Cancer Screening 1970 Cologuard 1970 Colon Cancer Screening 1970 Colonoscopy 1970 FOBT / Fit Test 1970 HIV Screening 1970 HPV and Pap Smear 1970 Hepatitis C Screening 1970 Pap Smear 1970 Sigmoidoscopy 1970 Hepatitis B Vaccines (1 of 3 - 19+ 3-dose series) 01/20 DTaP,Tdap,and Td Vaccines (1 - Tdap) 02/03/1992 Mammogram 2010 Pneumococcal Vaccine: 50+ Years (1 of 1 - PCV) 020 Zoster Vaccines (1 of 2) 02/03/2020 COVID-19 Vaccine (1 - 2023- season) 2024 Influenza Vaccine (#1) 2024 Alcohol/Substance Use Screening 05/22/2024 Depression Screening and Follow-Up 05/22/2024 Social Drivers of Health Annual Screening 05/22/2024 RSV Vaccine (60+ years old a nd patients) (1 - 1-dose 75+ series) 2045 Procedures * Due to [place] law, this organization might not be sharing negative HIV tests. Procedure Name Priority Date/Time Associated Diagnosis Comments BASIC METABOLIC PANEL STAT 07/12/2024 1:28 PM EST CBC AUTO DIFFERENTIAL STAT 07/12/2024 1:28 PM EST HEART & VASCULAR - SCANNED 07/12/2024 from Last 3 Months Results * Due to [place] [employer] law, this organization might not be sharing negative HIV tests. * CBC Auto Differential (07/12/2024 1:28 PM EST) WBC 6.5 3.8 - 10.8 10*3/uL 07/12/2024 1:46 PM EST [facility] RBC 4.36 3.80 - 5.10 10*6/uL 07/12/2024 1:46 PM EST [facility] Hemoglobin 12.2 11.7 - 15.5 g/dL 07/12/2024 1:46 PM EST [facility] Hematocrit 37.8 35.0 - 45.0 % 07/12/2024 1:46 PM EST [facility] MCV 86.7 [...] <0.03 <=0.03 10*3/uL 07/12/2024 1:46 PM EST [facility] Lymphocyte # 2.00 0.85 - 3.90 10*3/uL 07/12/2024 1:46 PM EST [facility] Monocyte # 0.40 0.20 - 0.95 10*3/uL 07/12/2024 1:46 PM EST [facility] Eosinophil # 0.10 0.02 - 0.50 10*3/uL 07/12/2024 1:46 PM EST [facility] Basophil # <0.03 0.00 - 0.20 10*3/uL 07/12/2024 1:46 PM EST [facility] nRBC % 0.0 /100 WBCs 07/12/2024 1:46 PM EST [facility] nRBC # <0.01 <0.01 10*3/uL 07/12/2024 1:46 PM EST [facility] Blood Structure of peripheral vein / Unknown Venipuncture / Unknown 07/12/2024 1:28 PM EST 07/12/2024 1:38 PM EST us Krishna Camacho MD LAB BLOOD ORDERABLES Final Re sult [facility] [address] [place] [address], * (ABNORMAL) Basic Metabolic Panel (07/12/2024 1:28 PM EST) NA 143 135 - 145 mmol/L 07/12/2024 2:05 PM EST [facility] K 4.0 3.5 - 5.3 mmol/L 07/12/2024 2:05 PM EST [facility] Cl 109(H) 98 - 107 mmol/L 07/12/2024 2:05 PM EST [facility] CO2 23 22 - 32 mmol/L 07/12/2024 2:05 PM EST [facility] BUN 12 7 - 23 mg/dL 07/12/2024 2:05 PM EST [facility] Creatinine 0.84 0.50 - 1.20 mg/dL 07/12/2024 2:05 PM EST [facility] Glucose 99 65 - 99 mg/dL 07/12/2024 2:05 PM EST [facility] Calcium 9.8 8.6 - 10.5 mg/dL 07/12/2024 2:05 PM EST [facility] Anion Gap 11 5 - 15 07/12/2024 2:05 PM EST [facility] eGFR 83 >=60 mL/min/1. 73m2 07/12/2024 2:05 PM EST [facility] Comment:The estimated glomer ular filtration rate (eGFR) is calculated using a new formula developed by the NKF-ASN task force to eliminate race-based correction factors. The new formula uses serum/plasma creatinine, age, and gender to determine eGFR. A value below 60mls/min might indicate kidney disease and will be flagged. For additional information, see Claros et al, Am J Kidney Dis. 2021;79(2):268- 288, A Unifying Approach for GFR estimation: Recommendations of the NKF-ASN Task Force on Reassessing the Inclusion of Race in Diagnosing Kidney Disease . Blood Structure of peripheral vein / Unknown Venipuncture / Unknown 07/12/2024 1:28 PM EST 07/12/2024 1:38 PM EST us Krishna Camacho MD LAB BLOOD ORDERABLES Final Re sult [facility] Organization Address City/State/ZIP Co de Phone Number [facility] [address] [place] [address], * HEART & VASCULAR - SCANNED (07/12/2024) Anatomical Region Laterality Modality Other us Onbase Scan Rodriguez SCANNED PROCEDURES Final Resu lt from Last 3 Months Insurance [employer] Care Teams Rn Labor Delivery Relationship Specialty Start Date End Date Carrie Marshall [address] [place] [address] [place] [address] PCP - General Internal Medicine 07/12/24
--- OUTSIDE RECORDS SUMMARY | 2024-07-18 19:08 | XMS_ITS | Encounter Summary ---
Author Organization [facility] Address [address] [place] [address] [address] [place] [address] Care Team Providers Care It Applications Developer Name Role Phone Unavailable Primary Care Provider Unavailabl e Encounter Details Date Type Department Care Team (Latest Contact Info) Description 05/05/2021 Abstract [facility] CONVERSIONS Dental, Provider, DDS Social History Tobacco [...] Description 10/10/2024 3:00 PM EDT Office Visit [facility] ADULT D[facility] [address] [place] [address] Viviana Prado documented as of this encounter Visit Diagnoses Not on filedocumented in this encounter
== END 2024-07-18 16:35 | disposition home or self-care (01) ==
LOC: HO.HUSH 15:52
PROVIDERS: PCP Internal Medicine; Visit Provider Urology
DX: Z13.9 Encounter for screening, unspecified (principal)

== ENCOUNTER 2024-07-19 08:49 | Outpatient (AMB) | payer OTHER, SELFPAY ==
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
[2024-07-19 08:57] VITALS: BP 122/76; PULSE 92; TEMP 36.2; O2SAT 97; BMI 25.9
--- OUTSIDE RECORDS SUMMARY | 2024-07-19 09:07 | XMS_ITS | Clinical Summary ---
Author Organization [employer] [facility] Address [address] [place] [address] Care Team Providers Care Street Sweeper Name Role Phone Unavailable Primary Care Provider [...] MCG/ACT aerosol powder 3 Active HYDROcodone-fabrice taminophen (Korbel) 5-325 MG tablet TAKE ONE TABLET BY [...] Description 05/31/2024 1:30 PM EST Office Visit [facility] [address] [place] [address] Rosi Nowak DMD 05/29/2024 1:00 PM EST Office Visit [facility] [address] [place] [address] Omkar Fuller DMD History of tooth extraction, unspecified edentulism class (Primary Dx) 05/06/2024 3:00 PM EST Office Visit [facility] [address] [place], [place] [phone] Viviana Prado Dental calculus (Primary Dx); Dental plaque 04/24/2024 2:00 PM EST Office Visit [facility] [address] [place] [address] Omkar Fuller DMD from Last 3 Months [...] Description 10/10/2024 3:00 PM EDT Office Visit [facility] [address] [place] [address] Viviana Prado Health Maintenance Due Date Last [...]
--- OUTSIDE RECORDS SUMMARY | 2024-07-19 09:07 | XMS_ITS | Encounter Summary ---
Author Organization [facility] Address [address] [place] [address] [address] [place] [address] Care Team Providers Care Memorial Marker Designer Name Role Phone Unavailable Primary Care Provider Unavailabl e Encounter Details Date Type Department Care Team (Latest Contact Info) Description 09/26/2018 Abstract [facility] CONVERSION[facility] Dental, Provider, DDS Social History [...] Description 10/10/2024 3:00 PM EDT Office Visit [facility] [address] [place] [address] Viviana Prado documented as of this encounter Visit Diagnoses Not on filedocumented in this encounter
--- OUTSIDE RECORDS SUMMARY | 2024-07-19 09:07 | XMS_ITS | Clinical Summary ---
Author Organization [facility] Address [address] [place] [address] Care Team Providers Care Formulation Chemist Name Role Phone Carrie Marshall Primary Care Provider Allergies No known active allergies Encounters Date Type Department Care Team Description 07/12/2024 3:14 PM EST - 07/12/2024 6:43 PM EST Emergency [facility] Emergency Department [address] [place] [id number] Krishna Camacho MD Vasovagal near syncope [...] 75+ series) 2045 Procedures * Due to [place] [employer] law, this organization might not be sharing negative HIV tests. Procedure Name Priority Date/Time Associated Diagnosis Comments BASIC METABOLIC PANEL STAT 07/12/2024 1:28 PM EST CBC AUTO DIFFERENTIAL STAT 07/12/2024 1:28 PM EST HEART & VASCULAR - SCANNED 07/12/2024 from Last 3 Months Results * Due to [place] [employer] law, this organization might not be sharing negative HIV tests. * CBC Auto Differential (07/12/2024 1:28 PM EST) WBC 6.5 3.8 - 10.8 10*3/uL 07/12/2024 1:46 PM EST [facility] RBC 4.36 3.80 - 5.10 10*6/uL 07/12/2024 1:46 PM EST [facility] Hemoglobin 12.2 11.7 - 15.5 g/dL 07/12/2024 1:46 PM EST [facility] Hematocrit 37.8 35.0 - 45.0 % 07/12/2024 1:46 PM EST [facility] MCV 86.7 [...] - 0.95 10*3/uL 07/12/2024 1:46 PM EST [facility] Eosinophil # 0.10 0.02 - 0.50 10*3/uL 07/12/2024 1:46 PM EST [facility] Basophil # <0.03 0.00 - 0.20 10*3/uL 07/12/2024 1:46 PM EST [facility] nRBC % 0.0 /100 WBCs 07/12/2024 1:46 PM EST [facility] nRBC # <0.01 <0.01 10*3/uL 07/12/2024 1:46 PM EST [facility] Blood Structure of peripheral vein / Unknown Venipuncture / Unknown 07/12/2024 1:28 PM EST 07/12/2024 1:38 PM EST us Krishna Camacho MD LAB BLOOD ORDERABLES Final Re sult [facility] [address] [place] [address], * (ABNORMAL) Basic Metabolic Panel (07/12/2024 1:28 PM EST) NA 143 135 - 145 mmol/L 07/12/2024 2:05 PM EST [facility] K 4.0 3.5 - 5.3 mmol/L 07/12/2024 2:05 PM EST [facility] Cl 109(H) 98 - 107 mmol/L 07/12/2024 2:05 PM EST [facility] CO2 23 22 - 32 mmol/L 07/12/2024 2:05 PM EST [facility] BUN 12 7 - 23 mg/dL 07/12/2024 2:05 PM EST [facility] Creatinine 0.84 0.50 - 1.20 mg/dL 07/12/2024 2:05 PM EST [facility] Glucose 99 65 - 99 mg/dL 07/12/2024 2:05 PM EST [facility] [employer] [facility] Calcium 9.8 8.6 - 10.5 mg/dL 07/12/2024 2:05 PM EST [facility] [employer] [facility] Anion Gap 11 5 - 15 07/12/2024 2:05 PM EST [facility] [employer] [facility] eGFR 83 >=60 mL/min/1. 73m2 07/12/2024 2:05 PM EST [facility] [employer] [facility] Comment:The estimated glomer ular [...] MD LAB BLOOD ORDERABLES Final Re sult [facility] Organization Address City/State/ZIP Co de Phone Number [facility] [employer] [facility] [address] [place] [address], * HEART & VASCULAR - SCANNED (07/12/2024) Anatomical Region Laterality Modality Other us Onbase Scan Rodriguez SCANNED PROCEDURES Final Resu lt from Last 3 Months Insurance [employer] Care Teams Formulation Chemist Relationship Specialty Start Date End Date Carrie Marshall [address] [place] [address] [place] [address] PCP - General Internal Medicine 07/12/24
--- OUTSIDE RECORDS SUMMARY | 2024-07-19 09:07 | XMS_ITS | Encounter Summary ---
Author Organization [facility] Address [address] [place] [address] Care Team Providers Care Shuttle Van Driver Name Role Phone Carrie Marshall Primary Care Provider Reason for Visit * Reason Comments Pre Syncope Encounter Details Date Type Department Care Team (Late st Contact Info) Description 07/12/2024 3:14 PM EST - 07/12/2024 6:43 PM EST Emergency [facility] Emergency Department [address] [place] [id number] Krishna Camacho MD [address] [place] [address] [place] [address] Vasovagal near syncope (Primary Dx) Discharge Disposition: [...] sent through Care Everywhere. * Vasovagal Response (Sudanese) documented in this encounter ED Notes * [...] addressed. Ambulated successfully here without symptoms, discharged. [facility] ED Course as of 07/13/24 0108 MonJul 12, 2024 1638 EKG interpreted independently by myself in the absence of tube operator demonstrates normal sinus rhythm, no ST segment ischemic changes. [] ED Course User Index [] MD Wendy Lora : 1970 CSN: [id number] History reviewed. No pertinent past medical history. [...] by me. Wendy Shabazz : 1970 CSN: [id number] documented in this encounter Plan of Treatment Not on file documented as of this encounter Procedures * Due to [place] [employer] law, this organization might not be sharing negative HIV tests. Procedure Name Priority Date/Time Associated Diagnosis Comments CBC AUTO DIFFERENTIAL STAT 07/12/2024 1:28 PM EST BASIC METABOLIC PANEL STAT 07/12/2024 1:28 PM EST HEART & VASCULAR - SCANNED 07/12/2024 documented in this encounter Results * Due to [place] [employer] law, this organization might not be sharing [...] - 32 mmol/L 07/12/2024 2:05 PM EST [facility] BUN 12 7 - 23 mg/dL 07/12/2024 2:05 PM EST [facility] Creatinine 0.84 0.50 - 1.20 mg/dL 07/12/2024 2:05 PM EST [facility] Glucose 99 65 - 99 mg/dL 07/12/2024 2:05 PM EST [facility] Calcium 9.8 8.6 - 10.5 mg/dL 07/12/2024 2:05 PM EST [facility] Anion Gap 11 5 - 15 07/12/2024 2:05 PM EST [facility] eGFR 83 >=60 mL/min/1. 73m2 07/12/2024 2:05 PM EST [facility] Comment:The estimated glomer ular [...] MD LAB BLOOD ORDERABLES Final Re sult [facility] [address] [place] [address], [place] * CBC Auto Differential (07/12/2024 1:28 [...] - 33.0 pg 07/12/2024 1:46 PM EST [facility] MCHC 32.3 32.0 - 36.0 g/dL 07/12/2024 1:46 PM EST [facility] RDW 12.6 11.0 - 15.0 % 07/12/2024 1:46 PM EST [facility] Platelets 258 [...] <0.03 <=0.03 10*3/uL 07/12/2024 1:46 PM EST [facility] Lymphocyte # 2.00 0.85 - 3.90 10*3/uL 07/12/2024 1:46 PM EST [facility] Monocyte # 0.40 0.20 - 0.95 10*3/uL 07/12/2024 1:46 PM EST [facility] Eosinophil # 0.10 0.02 - 0.50 10*3/uL 07/12/2024 1:46 PM EST [facility] Basophil # <0.03 0.00 - 0.20 10*3/uL 07/12/2024 1:46 PM EST [facility] nRBC % 0.0 /100 WBCs 07/12/2024 1:46 PM EST [facility] nRBC # <0.01 <0.01 10*3/uL 07/12/2024 1:46 PM EST [facility] [facility] Blood Structure of peripheral vein / Unknown Venipuncture / Unknown 07/12/2024 1:28 PM EST 07/12/2024 1:38 PM EST us Krishna Camacho MD LAB BLOOD ORDERABLES Final Re sult [facility] [address] [place] [address], * HEART & VASCULAR - SCANNED (07/12/2024) [...] RN) documented in this encounter Care Teams Shuttle Van Driver Relationship Specialty Start Date End Date Carrie Marshall [address] [place] [address] dr Viola Rod, [place] [address] PCP - General Internal Medicine 07/12/24 documented as of this encounter
--- OUTSIDE RECORDS SUMMARY | 2024-07-19 09:07 | XMS_ITS | Referral Summary ---
Author Organization [facility] Address [address] [place] [address] Care Team Providers Care Manufacturing Finance Manager Name Role Phone Carrie Marshall Primary Care Provider [phone] Encounters Date Type Department Care Team Description 07/12/2024 3:14 PM EST - 07/12/2024 6:43 PM EST Emergency [facility] Emergency Department [address] [place] [address] Krishna Camacho MD Vasovagal near syncope (Primary [...] Not on file Procedures * Due to [place] state law, this organization might not be sharing negative HIV tests. Procedure Name Priority Date/Time Associated Diagnosis Comments BASIC METABOLIC PANEL STAT 07/12/2024 1:28 PM EST CBC AUTO DIFFERENTIAL STAT 07/12/2024 1:28 PM EST HEART & VASCULAR - SCANNED 07/12/2024 from Last 3 Months Results * Due to [place] state law, this organization might not be [...] % 0.6 % 07/12/2024 1:46 PM EST [facility] Neutrophil # 3.95 1.50 - 7.80 10*3/uL 07/12/2024 1:46 PM EST [facility] Immature Grans # <0.03 <=0.03 10*3/uL 07/12/2024 1:46 PM EST [facility] Lymphocyte # 2.00 0.85 - 3.90 10*3/uL 07/12/2024 1:46 PM EST [facility] Monocyte # 0.40 0.20 - 0.95 10*3/uL 07/12/2024 1:46 PM EST [facility] Eosinophil # 0.10 0.02 - 0.50 10*3/uL 07/12/2024 1:46 PM EST [facility] Basophil # <0.03 0.00 - 0.20 10*3/uL 07/12/2024 1:46 PM EST [facility] nRBC % 0.0 /100 WBCs 07/12/2024 1:46 PM EST [facility] nRBC # <0.01 <0.01 10*3/uL 07/12/2024 1:46 PM EST [facility] Blood Structure of peripheral vein / Unknown Venipuncture / Unknown 07/12/2024 1:28 PM EST 07/12/2024 1:38 PM EST us Krishna Camacho MD LAB BLOOD ORDERABLES Final Re sult [facility] [address] [place] [address], * (ABNORMAL) Basic Metabolic Panel (07/12/2024 1:28 PM EST) NA 143 135 - 145 mmol/L 07/12/2024 2:05 PM EST [email or web address] [place] K 4.0 3.5 - 5.3 mmol/L 07/12/2024 2:05 PM EST [facility] Cl 109(H) 98 - 107 mmol/L 07/12/2024 2:05 PM EST [facility] CO2 23 22 - 32 mmol/L 07/12/2024 2:05 PM EST [facility] BUN 12 7 - 23 mg/dL 07/12/2024 2:05 PM EST [facility] Creatinine 0.84 0.50 - 1.20 mg/dL 07/12/2024 2:05 PM EST [facility] Glucose 99 65 - 99 mg/dL 07/12/2024 2:05 PM EST [facility] Calcium 9.8 8.6 - 10.5 mg/dL 07/12/2024 2:05 PM EST [facility] Anion Gap 11 5 - 15 07/12/2024 2:05 PM EST [facility] eGFR 83 >=60 mL/min/1. 73m2 07/12/2024 2:05 PM EST [facility] Comment:The estimated glomer ular [...] BLOOD ORDERABLES Final Re sult [facility] [address] [place] [address], * HEART & VASCULAR - SCANNED (07/12/2024) Anatomical Region Laterality Modality Other us Onbase Scan Rodriguez SCANNED PROCEDURES Final Resu lt from Last 3 Months Insurance [employer] Care Teams Manufacturing Finance Manager Relationship Specialty Start Date End Date Carrie Marshall [address] [place] [address] [place] [address] PCP - General Internal Medicine 07/12/24
--- OUTSIDE RECORDS SUMMARY | 2024-07-19 09:07 | XMS_ITS | Encounter Summary ---
Author Organization [facility] Address [address] [place] [address] [address] [place] [address] Care Team Providers Care Psychologist Social Name Role Phone Unavailable Primary Care Provider Unavailabl e Encounter Details Date Type Department Care Team (Latest Contact Info) Description 05/05/2021 Abstract [facility] Dental, Provider, DDS Social History Tobacco [...] 3:00 PM EDT Office Visit [facility] [address] [place] [address] Viviana Prado documented as of this encounter Visit Diagnoses Not on filedocumented in this encounter
== END 2024-07-19 10:09 | disposition home or self-care (01) ==
PROVIDERS: PCP Internal Medicine; Visit Provider Internal Medicine
DX: R55 Syncope and collapse (principal); I10 Essential (primary) hypertension; N30.10 Interstitial cystitis (chronic) without hematuria; E78.00 Pure hypercholesterolemia, unspecified; J45.20 Mild intermittent asthma, uncomplicated; F41.1 Generalized anxiety disorder

== ENCOUNTER → 2024-07-19 08:49 | Outpatient (BNVA) | payer OTHER, SELFPAY | PROVIDERS: PCP Internal Medicine; Visit Provider Internal Medicine | DX: R55 Syncope and collapse (principal); I10 Essential (primary) hypertension; N30.10 Interstitial cystitis (chronic) without hematuria; E78.00 Pure hypercholesterolemia, unspecified; J45.20 Mild intermittent asthma, uncomplicated; F41.1 Generalized anxiety disorder | CPT/HCPCS: 99212 ==

== ENCOUNTER 2024-08-23 14:28 | Outpatient (REF) | payer OTHER, SELFPAY ==
[2024-08-23 14:43] LABS: MANUAL DIFF FLAG NO
[2024-08-23 15:22] LABS: Appearance Urine Clear; Color Urine Yellow; Glucose Urine UA Negative (Negative); Leukocyte Esterase Urine Negative (Negative); Nitrite Urine Negative (Negative); Specific Gravity - Urine <= 1.005 (1.005-1.025); Urine Blood Negative (Negative); Urine Ketones Negative (Negative); Urine Protein Negative (Neg-Trace)
[2024-08-23 15:24] LABS: Basophils Absolute Auto 0.1 X10*3/uL (0.0-0.2); Basophils Percent Auto 1.1 % (0-2); Eosinophils Absolute Auto 0.1 X10*3/uL (0.0-0.4); Eosinophils Percent Auto 1.1 % (0-4); Hematocrit 40.3 % (37.0-47.0); Hemoglobin 13.2 g/dl (12.0-16.0); Imm Gran Abs Auto 0.01 X10*3/uL (0.00-0.03); Imm Gran Pct Auto 0.2 % (0.0-0.4); Lymphocytes Absolute Auto 2.6 X10*3/uL (1.2-4.9); Lymphocytes Percent Auto 45.4 % (20-40); Mean Corpuscular HGB Conc 32.8 g/dl (31.0-35.0); Mean Corpuscular Hemoglobin 28.7 pg (27.0-33.0); Mean Corpuscular Volume 87.6 fL (80.0-98.0); Mean Platelet Volume 10.8 fL (9.4-12.3); Monocytes Absolute Auto 0.4 X10*3/uL (0.1-1.2); Monocytes Percent Auto 6.5 % (2-11); Neutrophils Absolute Auto 2.6 x10*3/uL (2.0-8.3); Neutrophils Percent Auto 45.7 % (45-73); Platelet Count 300 X10*3/uL (160-400); Red Cell Distribution Width 13.2 % (11.0-16.0); White Blood Count 5.7 X10*3/uL (4.8-10.8)
--- OUTSIDE RECORDS SUMMARY | 2024-08-23 16:02 | XMS_ITS | Data Portability ---
Author Organization [facility] [employer] Address [address] [place] [address] [place] [address] Care Team Providers Care Retail Marketing Coordinator Name Role Phone WILBER DACOSTA Referring Provider [...] have clinical sites close to this area, [place] or close by major centers such as [place] or [facility]. She understood and took some notes. [...] None recorded. Lab vitamin B12, serum 024 [facility], [address] [place] [address], [place], [address], 4 11:16:50 folate, serum 024 ashtyne[facility]carine 1 [facility], [address], [place], [address], 4 15:38:59 mma (methylma lonic acid), serum 024 [facility], [address] [place] [address], [address], 4 11:19:07 homocyste ine, serum or plasma 024 [facility], [address] [place] [address], [address], 4 11:19:12 TSH, serum or plasma - E07.9 024 [facility] [address] [place] [address] Laboratory, [address] [place] [address], [address], 4 15:39:00 T4, free, serum - E07.[address] [facility], [address] [place] [address], [address], 4 15:39:00 vitamin D, 25-hydrox y, total, serum - E55.[address] [facility] [address] [facility], [address] [place] [address], [address], 4 15:38:59 RPR (rapid plasma reagin), serum - A53.[address] [facility], [address] [place] [address], [address], 4 15:39:00 Referral None recorded. Procedures None recorded. Surgeries None recorded. Imaging None recorded. Medication Orders None recorded. Patient TargetsNo targets recorded. Patient Instructions Encounter Date Encounter Id Patient Instructions Last Modified By Organization Details Last Modified Time 09/05/2023 [id number] Discussion acros s issues of diagnoses and management and same day associated chart review and management greater than 50% greater than 60 minutes mrossen Not available 09/05/2023 14:45:21 10/24/2023 [id number] Discussion acros s issues of diagnoses and [...] Not available 09/05/2023 [id number] RxNorm Veena Cisneros [facility] 13:09:32 Medications Name Sig Start Date Stop [...] Updated DateTime 09/05/2023 165.1 cm 25 kg/m2 34738.86 g 12 /min Veena Cisneros [facility] Neurology [facility] 09/05/2023 13:09:20 Social History Question Answer Notes LastModified by Organizat ion Details LastModified Time Tobacco Smoking Status Never Smoker Veena guillen [facility] 09/05/2023 13:11:52 What Is Your Level Of Alcohol Consumption? Occasional Information not available 09/05/2023 What Is Your Level Of Caffeine Consumption? Moderate 1 Cup Daily Information not available 09/05/2023 What Is The Highest Grade Or Level Of School You Have Completed Or The Highest Degree You Have Received? [id number] Information not available 09/05/2023 Which Of Your [...] 13:10:54 Medical History Condition Response Claustrophobia N Hospitalizations N Head Trauma/Injury N High Blood Pressure or Hypertension Y Thyroid Problems N Lung Disease N Depression Y COPD or emphysema N Brain Tumors N Encephalitis N PTSD N Vitamin B12 deficiency N Heart Attack (ND) N Spine Problems N Obstructive Sleep Apnea N Alcoholism N Diabetes N Autoimmune disease N Bleeding Disorder N Arthritis N Developmental Problems N Tuberculosis N Cerebral Palsy N Neck Problems N Cancer N Back Problems N Stroke N Asthma Y Heartburn, acid reflux, GERD Y Vitamin D Deficiency N Epilepsy/Seizures N Bipolar Disorder N Sleep Disorder N Hepatitis N Aneurysm N Liver Disease N Heart Disease N Headaches Y Fibromyalgia N Osteoporosis N High Cholesterol or Hyperlipidemia N Kidney Disease N Gynecological HistoryNo gynecological history recorded. 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 248464913 D51.0 Abnormal t hyroid hormone 003952735 R94.6 Vitamin D deficiency 347 [address]0664 E55.9 Syphilis 69242280 A53.9 [id number] Krishna Jenkins MD [facility] [address] [place] [address] [place] [id number] 10/24/2023 16:39:30 10/30/2023 15:36:01 Mild neurocognitive disorder 161447714 G31.84 Health Concerns Section Related Observation LastModified by Organization Detai ls LastModified Time None Recorded Concern Status LastModified by Organization Details LastModified Time None Recorded Advance Directives Directive None Recorded Payers Encounter Date Sequence Insurance Name Policy Number Policy Post Covered Member ID Post Member ID Guarantor Name 09/05/2023 1 [facility] NET PLAN (MEDICAID HMO) JOSE Shabazz [id number] Wendy Shabazz 10/24/2023 1 [facility] PL[facility] (MEDICAID HMO) JOSE Shabazz [id number] Wendy Shabazz Notes Date Note Type Note [...] for her mother last week for a [employer] application. She had difficulty so that she needed to obtain guidance from an eldercare social worker palliative care. She thinks an earlier time she would not have needed such guidance. As an example, in 2007 she applied for medical guardianship for her mother was of her mother's of schizophrenia. She went to court, filled out forms and appeared in court all on her own, without an traffic law attorney.She lives with her mother and her [...] this is a possibility. Krishna Jenkins MD [address] [place] [address], [phone], [facility] 09/05/2023 14:45:37 10/24/2023 text/html Neurology follow [...] for her mother last week for a [employer] application. She had difficulty so that she needed to obtain guidance from an eldercare social worker palliative care. She thinks an earlier time she would not have needed such guidance. As an example, in 2007 she applied for medical guardianship for her mother was of her mother's of schizophrenia. She went to court, filled out forms and appeared in court all on her own, without an traffic law attorney.She lives with her mother and her [...] this is a possibility. Krishna Jenkins MD [address] [place] [address] [place], [address], [facility] 10/24/2023 18:29:29 OBGyn Episode No OBEpisode recorded.
--- OUTSIDE RECORDS SUMMARY | 2024-08-23 16:02 | XMS_ITS | Referral Summary ---
Author Organization [facility] Address [address] [place] [address] Care Team Providers Care Band Tier Name Role Phone Carrie Marshall Primary Care Provider [phone] Encounters Date Type Department Care Team Description 07/12/2024 3:14 PM EST - 07/12/2024 6:43 PM EST Emergency [facility] Emergency Department [address] [place] [address] Krishna Camacho MD Vasovagal near syncope (Primary [...] Not on file Procedures * Due to [place] state law, this organization might not be sharing negative HIV tests. Procedure Name Priority Date/Time Associated Diagnosis Comments BASIC METABOLIC PANEL STAT 07/12/2024 1:28 PM EST CBC AUTO DIFFERENTIAL STAT 07/12/2024 1:28 PM EST ECG 12-LEAD STAT 07/12/2024 1:13 PM EST HEART & VASCULAR - SCANNED 07/12/2024 from Last 3 Months Results * Due to [place] state law, this organization might not be [...] - 0.50 10*3/uL 07/12/2024 1:46 PM EST [facility] Basophil # <0.03 0.00 - 0.20 10*3/uL 07/12/2024 1:46 PM EST [facility] nRBC % 0.0 /100 WBCs 07/12/2024 1:46 PM EST [facility] nRBC # <0.01 <0.01 10*3/uL 07/12/2024 1:46 PM EST [facility] Blood Structure of peripheral vein / Unknown Venipuncture / Unknown 07/12/2024 1:28 PM EST 07/12/2024 1:38 PM EST us Krishna Camacho MD LAB BLOOD ORDERABLES Final Re sult [facility] [address] [place] [address], * (ABNORMAL) Basic Metabolic Panel (07/12/2024 1:28 PM EST) NA 143 135 - 145 mmol/L 07/12/2024 2:05 PM EST [facility] K 4.0 3.5 - 5.3 mmol/L 07/12/2024 2:05 PM EST [facility] Cl 109(H) 98 - 107 mmol/L 07/12/2024 2:05 PM EST [facility] CO2 23 22 - 32 mmol/L 07/12/2024 2:05 PM EST [facility] BUN 12 7 - 23 mg/dL 07/12/2024 2:05 PM EST [facility] Creatinine 0.84 0.50 - 1.20 mg/dL 07/12/2024 2:05 PM EST [facility] Glucose 99 65 - 99 mg/dL 07/12/2024 2:05 PM EST [facility] Calcium 9.8 8.6 - 10.5 mg/dL 07/12/2024 2:05 PM EST [facility] Anion Gap 11 5 - 15 07/12/2024 2:05 PM EST [facility] eGFR 83 >=60 mL/min/1. 73m2 07/12/2024 2:05 PM EST [facility] Comment:The estimated glomer ular [...] MD LAB BLOOD ORDERABLES Final Re sult Performing Organization Address City/[facility]/ZIP Co de Phone Number [facility] [address] [place] [address], [place] * ECG 12 lead For Preop? No (07/12/2024 1:13 PM EST) Ventricular Rate EKG 88 BPM MUSE EKG Atrial Rate 88 BPM MUSE EKG PA Interval 134 ms MUSE EKG QRS Interval 76 ms MUSE EKG QT Interval 356 ms MUSE EKG QTC Interval 430 ms MUSE EKG P [place] 44 degrees MUSE EKG R [place] -13 degrees MUSE EKG T Wave [place] 45 degrees MUSE EKG 07/12/2024 1:13 PM EST 07/20/2024 7:15 AM EST Impressions MUSE EKG - 07/20/2024 7:15 AM EST NORMAL SINUS RHYTHM LOW VOLTAGE QRS POOR ' r ' WAVE PROGRESSION ABNORMAL ECG NO PREVIOUS ECGS AVAILABLE Confirmed by Booker Greer ([id number]) on 07/20/2024 7:15:07 AM us Krishna Camacho MD ECG ORDERABLES Final Result Performing Organization Address [facility] Co de Phone Number MUSE EKG * HEART & VASCULAR - SCANNED (07/12/2024) Anatomical Region Laterality Modality Other us Onbase Scan Rodriguez SCANNED PROCEDURES Final Resu lt from Last 3 Months Insurance [employer] Care Teams Band Tier Relationship Specialty Start Date End Date Carrie Marshall [address] [place] [address] [place] [address] PCP - General Internal Medicine 07/12/24
--- OUTSIDE RECORDS SUMMARY | 2024-08-23 16:02 | XMS_ITS | Clinical Summary ---
Author Organization [facility] Address [address] [place] [address] Care Team Providers Care Software Product Specialist Name Role Phone Carrie Marshall Primary Care Provider [phone] Allergies No known active allergies Encounters Date Type Department Care Team Description 07/12/2024 3:14 PM EST - 07/12/2024 6:43 PM EST Emergency [facility] Emergency Department [address] [place] [address] Krishna Camacho MD Vasovagal near syncope [...] of 2) 02/03/2020 COVID-19 Vaccine (1 - season) 2024 Alcohol/Substance Use Screening 05/22/2024 Depression Screening and Follow-Up 05/22/2024 Social Drivers of Health Annual Screening 05/22/2024 Influenza Vaccine (Season Ended) 2025 Basic Metabolic Panel 07/12/2025 07/12/2024 RSV Vaccine (60+ years old a nd patients) (1 - 1-dose 75+ series) 2045 Procedures * Due to [facility] law, this organization might not be sharing negative HIV tests. Procedure Name Priority Date/Time Associated Diagnosis Comments BASIC METABOLIC PANEL STAT 07/12/2024 1:28 PM EST CBC AUTO DIFFERENTIAL STAT 07/12/2024 1:28 PM EST ECG 12-LEAD STAT 07/12/2024 1:13 PM EST HEART & VASCULAR - SCANNED 07/12/2024 from Last 3 Months Results * Due to [place] [employer] law, this organization might not be sharing negative HIV tests. * CBC Auto Differential (07/12/2024 1:28 PM EST) WBC 6.5 3.8 - 10.8 10*3/uL 07/12/2024 1:46 PM EST [facility] RBC 4.36 3.80 - 5.10 10*6/uL 07/12/2024 1:46 PM EST [facility] Hemoglobin 12.2 11.7 - 15.5 g/dL 07/12/2024 1:46 PM EST [email or web address] Hematocrit 37.8 35.0 - [...] - 3.90 10*3/uL 07/12/2024 1:46 PM EST [facility] Monocyte # 0.40 0.20 - 0.95 10*3/uL 07/12/2024 1:46 PM EST [facility] Eosinophil # 0.10 0.02 - 0.50 10*3/uL 07/12/2024 1:46 PM EST [facility] Basophil # <0.03 0.00 - 0.20 10*3/uL 07/12/2024 1:46 PM EST [facility] nRBC % 0.0 /100 WBCs 07/12/2024 1:46 PM EST [facility] nRBC # <0.01 <0.01 10*3/uL 07/12/2024 1:46 PM EST [facility] Blood Structure of peripheral vein / Unknown Venipuncture / Unknown 07/12/2024 1:28 PM EST 07/12/2024 1:38 PM EST us Krishna Camacho MD LAB BLOOD ORDERABLES Final Re sult [facility] [address] [place] [address], * (ABNORMAL) Basic Metabolic Panel (07/12/2024 1:28 PM EST) NA 143 135 - 145 mmol/L 07/12/2024 2:05 PM EST [facility] K 4.0 3.5 - 5.3 mmol/L 07/12/2024 2:05 PM EST [facility] Cl 109(H) 98 - 107 mmol/L 07/12/2024 2:05 PM EST [facility] CO2 23 22 - 32 mmol/L 07/12/2024 2:05 PM EST [facility] BUN 12 7 - 23 mg/dL 07/12/2024 2:05 PM EST [email or web address] Creatinine 0.84 0.50 - 1.20 mg/dL 07/12/2024 2:05 PM EST [email or web address] Glucose 99 65 - 99 mg/dL 07/12/2024 2:05 PM EST [email or web address] Calcium 9.8 8.6 - 10.5 mg/dL 07/12/2024 2:05 PM EST [email or web address] Anion Gap 11 5 - 15 07/12/2024 2:05 PM EST [email or web address] eGFR 83 >=60 mL/min/1. 73m2 07/12/2024 2:05 PM EST [email or web address] Comment:The estimated glomer ular [...] MD LAB BLOOD ORDERABLES Final Re sult [facility] [address] [place] [address], * ECG 12 lead For Preop? No (07/12/2024 1:13 PM EST) Ventricular Rate EKG 88 BPM MUSE EKG Atrial Rate 88 BPM MUSE EKG ID Interval 134 ms MUSE EKG QRS Interval 76 ms MUSE EKG QT Interval 356 ms MUSE EKG QTC Interval 430 ms MUSE EKG P [place] 44 degrees MUSE EKG R [place] -13 degrees MUSE EKG T Wave [place] 45 degrees MUSE EKG 07/12/2024 1:13 PM EST 07/20/2024 7:15 AM EST Impressions MUSE EKG - 07/20/2024 7:15 AM EST NORMAL SINUS RHYTHM LOW VOLTAGE QRS POOR ' r ' WAVE PROGRESSION ABNORMAL ECG NO PREVIOUS ECGS AVAILABLE Confirmed by Booker Greer ([id number]) on 07/20/2024 7:15:07 AM us Krishna Camacho MD ECG ORDERABLES Final Result MUSE EKG * HEART & VASCULAR - SCANNED (07/12/2024) Anatomical Region Laterality Modality Other us Onbase Scan Rodriguez SCANNED PROCEDURES Final Resu lt from Last 3 Months Insurance [employer] Care Teams Software Product Specialist Relationship Specialty Start Date End Date Carrie Marshall [address] [place] [address] [place] [address] PCP - General Internal Medicine 07/12/24
[2024-08-23 16:07] LABS: Alanine Aminotransferase 22 U/L (0-31); Albumin Level 4.4 g/dL (3.5-5.0); Alkaline Phosphatase 65 U/L (39-117); Anion Gap 12 (12-20); Aspartate Amino Transferase 23 U/L (5-31); Bilirubin Total 0.5 mg/dL (0.0-1.0); Blood Urea Nitrogen 8 mg/dL (9-16); Calcium 9.6 mg/dL (8.4-10.2); Carbon Dioxide 26 mmol/L (22-29); Chloride 109 mmol/L (96-108); Cholesterol 226 mg/dL (<200); Estimated Glomerular Filt Rate > 60; Glucose Random 90 mg/dL (60-115); HDL Cholesterol 62 mg/dL (>40); LDL Cholesterol Calculated 150 mg/dL (<100); Magnesium 2.1 mg/dL (1.6-2.6); Potassium 3.7 mmol/L (3.3-5.1); Sodium 143 mmol/L (135-145); Triglycerides 70 mg/dL (<150)
[2024-08-23 16:20] LABS: Folate 10.2 ng/mL (> or = 4.0); Thyroid Stimulating Hormone 1.48 uIU/mL (0.32-4.0); Vitamin B12 566 pg/mL (200-900)
== END 2024-08-23 14:29 | disposition home or self-care (01) ==
LOC: HO.LAB 14:28
PROVIDERS: PCP Internal Medicine; Visit Provider Internal Medicine
DX: E78.00 Pure hypercholesterolemia, unspecified (principal); R30.0 Dysuria; N30.10 Interstitial cystitis (chronic) without hematuria; R55 Syncope and collapse
CPT/HCPCS: 36415; 80053; 80061; 81003; 82306; 82607; 82746; 83735; 84439; 84443; 85025

== ENCOUNTER 2024-08-27 09:43 | Outpatient (REF) | payer OTHER, SELFPAY ==
[2024-08-27 12:40] LABS: Lipase 30 U/L (8-78)
--- OUTSIDE RECORDS SUMMARY | 2024-08-27 13:43 | XMS_ITS | Referral Summary ---
Author Organization [facility] Address [address] [place] [address] Care Team Providers Care Grain And Yeast Plants Supervisor Name Role Phone Carrie Marshall Primary Care Provider [phone] Encounters Date Type Department Care Team Description 07/12/2024 3:14 PM EST - 07/12/2024 6:43 PM EST Emergency [facility] Emergency Department [address] [place] [phone] Krishna Camacho MD Vasovagal near syncope (Primary [...] Not on file Procedures * Due to [place] state law, this organization might not be sharing negative HIV tests. Procedure Name Priority Date/Time Associated Diagnosis Comments BASIC METABOLIC PANEL STAT 07/12/2024 1:28 PM EST CBC AUTO DIFFERENTIAL STAT 07/12/2024 1:28 PM EST ECG 12-LEAD STAT 07/12/2024 1:13 PM EST HEART & VASCULAR - SCANNED 07/12/2024 from Last 3 Months Results * Due to [place] state law, this organization might not be [...] <0.01 <0.01 10*3/uL 07/12/2024 1:46 PM EST [facility] Blood Structure of peripheral vein / Unknown Venipuncture / Unknown 07/12/2024 1:28 PM EST 07/12/2024 1:38 PM EST us Krishna Camacho MD LAB BLOOD ORDERABLES Final Re sult [facility] [address] [place] [address], * (ABNORMAL) Basic Metabolic Panel (07/12/2024 1:28 PM EST) NA 143 135 - 145 mmol/L 07/12/2024 2:05 PM EST [facility] K 4.0 3.5 - 5.3 mmol/L 07/12/2024 2:05 PM EST [facility] Cl 109(H) 98 - 107 mmol/L 07/12/2024 2:05 PM EST [facility] CO2 23 22 - 32 mmol/L 07/12/2024 2:05 PM EST [facility] BUN 12 7 - 23 mg/dL 07/12/2024 2:05 PM EST [facility] Creatinine 0.84 0.50 - 1.20 mg/dL 07/12/2024 2:05 PM EST [facility] Glucose 99 65 - 99 mg/dL 07/12/2024 2:05 PM EST [facility] Calcium 9.8 8.6 - 10.5 mg/dL 07/12/2024 2:05 PM EST [facility] Anion Gap 11 5 - 15 07/12/2024 2:05 PM EST [facility] eGFR 83 >=60 mL/min/1. 73m2 07/12/2024 2:05 PM EST [facility] Comment:The estimated glomer ular [...] ORDERABLES Final Re sult Performing Organization Address City/[facility]/ZIP Co de Phone Number [facility] [address] [place] [address], [place] * ECG 12 lead For Preop? No (07/12/2024 1:13 PM EST) Ventricular Rate EKG 88 BPM MUSE EKG Atrial Rate 88 BPM MUSE EKG NE Interval 134 ms MUSE EKG QRS Interval 76 ms MUSE EKG QT Interval 356 ms MUSE EKG QTC Interval 430 ms MUSE EKG P [place] 44 degrees MUSE EKG R [place] -13 degrees MUSE EKG T Wave [place] 45 degrees MUSE EKG 07/12/2024 1:13 PM EST 07/20/2024 7:15 AM EST Impressions MUSE EKG - 07/20/2024 7:15 AM EST NORMAL SINUS RHYTHM LOW VOLTAGE QRS POOR ' r ' WAVE PROGRESSION ABNORMAL ECG NO PREVIOUS ECGS AVAILABLE Confirmed by Booker Greer ([id number]) on 07/20/2024 7:15:07 AM us Krishna Camacho MD ECG ORDERABLES Final Result Performing Organization Address [facility] Co de Phone Number MUSE EKG * HEART & VASCULAR - SCANNED (07/12/2024) Anatomical Region Laterality Modality Other us Onbase Scan Rodriguez SCANNED PROCEDURES Final Resu lt from Last 3 Months Insurance [employer] Care Teams Grain And Yeast Plants Supervisor Relationship Specialty Start Date End Date Carrie Marshall [address] [place] [address] [place] [address] PCP - General Internal Medicine 07/12/24
--- OUTSIDE RECORDS SUMMARY | 2024-08-27 13:43 | XMS_ITS | Clinical Summary ---
Author Organization [facility] Address [address] [place] [address] Care Team Providers Care Medical Facilities Section Director Name Role Phone Carrie Marshall Primary Care Provider Allergies No known active allergies Encounters Date Type Department Care Team Description 07/12/2024 3:14 PM EST - 07/12/2024 6:43 PM EST Emergency [facility] Emergency Department [address] [place] [phone] Krishna Camacho MD Vasovagal near syncope [...] 75+ series) 2045 Procedures * Due to [facility] law, this organization might not be sharing negative HIV tests. Procedure Name Priority Date/Time Associated Diagnosis Comments BASIC METABOLIC PANEL STAT 07/12/2024 1:28 PM EST CBC AUTO DIFFERENTIAL STAT 07/12/2024 1:28 PM EST ECG 12-LEAD STAT 07/12/2024 1:13 PM EST HEART & VASCULAR - SCANNED 07/12/2024 from Last 3 Months Results * Due to [place] [employer] law, this organization might not be sharing negative HIV tests. * CBC Auto Differential (07/12/2024 1:28 PM EST) WBC 6.5 3.8 - 10.8 10*3/uL 07/12/2024 1:46 PM EST [facility] RBC 4.36 3.80 - 5.10 10*6/uL 07/12/2024 1:46 PM EST [facility] Hemoglobin 12.2 11.7 - 15.5 g/dL 07/12/2024 1:46 PM EST [facility] Hematocrit 37.8 35.0 - [...] - 3.90 10*3/uL 07/12/2024 1:46 PM EST [facility] Monocyte # 0.40 0.20 - 0.95 10*3/uL 07/12/2024 1:46 PM EST [facility] Eosinophil # 0.10 0.02 - 0.50 10*3/uL 07/12/2024 1:46 PM EST [facility] Basophil # <0.03 0.00 - 0.20 10*3/uL 07/12/2024 1:46 PM EST [facility] nRBC % 0.0 /100 WBCs 07/12/2024 1:46 PM EST [facility] nRBC # <0.01 <0.01 10*3/uL 07/12/2024 1:46 PM EST [facility] Blood Structure of peripheral vein / Unknown Venipuncture / Unknown 07/12/2024 1:28 PM EST 07/12/2024 1:38 PM EST us Krishna Camacho MD LAB BLOOD ORDERABLES Final Re sult [facility] [address] [place] [address], * (ABNORMAL) Basic Metabolic Panel (07/12/2024 1:28 PM EST) NA 143 135 - 145 mmol/L 07/12/2024 2:05 PM EST [facility] K 4.0 3.5 - 5.3 mmol/L 07/12/2024 2:05 PM EST [facility] Cl 109(H) 98 - 107 mmol/L 07/12/2024 2:05 PM EST [facility] CO2 23 22 - 32 mmol/L 07/12/2024 2:05 PM EST [facility] BUN 12 7 - 23 mg/dL 07/12/2024 2:05 PM EST [facility] Creatinine 0.84 0.50 - 1.20 mg/dL 07/12/2024 2:05 PM EST [facility] Glucose 99 65 - 99 mg/dL 07/12/2024 2:05 PM EST [facility] Calcium 9.8 8.6 - 10.5 mg/dL 07/12/2024 2:05 PM EST [facility] Anion Gap 11 5 - 15 07/12/2024 2:05 PM EST [facility] eGFR 83 >=60 mL/min/1. 73m2 07/12/2024 2:05 PM EST [facility] Comment:The estimated glomer ular [...] MD LAB BLOOD ORDERABLES Final Re sult [facility] LAB[facility] [address] [place] [address], * ECG 12 lead For Preop? No (07/12/2024 1:13 PM EST) Ventricular Rate EKG 88 BPM MUSE EKG Atrial Rate 88 BPM MUSE EKG [place] Interval 134 ms MUSE EKG QRS Interval 76 ms MUSE EKG QT Interval 356 ms MUSE EKG QTC Interval 430 ms MUSE EKG P [place] 44 degrees MUSE EKG R [place] -13 degrees MUSE EKG T Wave [place] 45 degrees MUSE EKG 07/12/2024 1:13 PM EST 07/20/2024 7:15 AM EST Impressions MUSE EKG - 07/20/2024 7:15 AM EST NORMAL SINUS RHYTHM LOW VOLTAGE QRS POOR ' r ' WAVE PROGRESSION ABNORMAL ECG NO PREVIOUS ECGS AVAILABLE Confirmed by Booker Greer ([id number]) on 07/20/2024 7:15:07 AM us Krishna Camacho MD ECG ORDERABLES Final Result MUSE EKG * HEART & VASCULAR - SCANNED (07/12/2024) Anatomical Region Laterality Modality Other us Onbase Scan Rodriguez SCANNED PROCEDURES Final Resu lt from Last 3 Months Insurance [employer] Care Teams Medical Facilities Section Director Relationship Specialty Start Date End Date Carrie Marshall [address] [place] [address] [place] [address] PCP - General Internal Medicine 07/12/24
--- OUTSIDE RECORDS SUMMARY | 2024-08-27 13:43 | XMS_ITS | Encounter Summary ---
Author Organization [employer] [facility] Address [address] [place] [address] [address] [place] [address] Care Team Providers Care Gauge And Weigh Machine Operator Name Role Phone Unavailable Primary Care Provider Unavailabl e Encounter Details Date Type Department Care Team (Latest Contact Info) Description 09/26/2018 Abstract [facility] CONVERSIONS Dental, Provider, DDS Social History [...] Description 10/10/2024 3:00 PM EDT Office Visit [facility] ADULT DENT[facility] [address] [place] [address] Viviana Prado documented as of this encounter Visit Diagnoses Not on filedocumented in this encounter
--- OUTSIDE RECORDS SUMMARY | 2024-08-27 13:43 | XMS_ITS | Clinical Summary ---
Author Organization [facility] Address [address] [facility] [address] [place] [address] Care Team Providers Care Coiler Operator Name Role Phone Unavailable Primary Care [...] MCG/ACT aerosol powder 3 Active HYDROcodone-fabrice taminophen ([place]) 5-325 MG tablet TAKE ONE TABLET BY [...] 1:30 PM EST Office Visit [facility] [address] [place] [address] Rosi Nowak DMD 05/29/2024 1:00 PM EST Office Visit [facility] [address] [place] [address] Omkar Fuller DMD History of tooth extraction, [...] Description 10/10/2024 3:00 PM EDT Office Visit [facility] ADULT D[facility] [address] [place] [address] Viviana Prado Health Maintenance Due Date Last [...] Most Recently Relevant to Health Maintenance Insurance DENTAL-[facility] MEDICAID STAND ADULT
--- OUTSIDE RECORDS SUMMARY | 2024-08-27 13:43 | XMS_ITS | Encounter Summary ---
Author Organization [employer] [facility] Address [address] [place] [address] [address] [place] [address] Care Team Providers Care Key Holder Name Role Phone Unavailable Primary Care Provider Unavailabl e Encounter Details Date Type Department Care Team (Latest Contact Info) Description 05/05/[address] [facility] CONVERSIONS Dental, Provider, DDS Social History [...] Description 10/10/2024 3:00 PM EDT Office Visit [facility]ULT [facility] [address] [place] [address] Viviana Prado documented as of this encounter Visit Diagnoses Not on filedocumented in this encounter
[2024-08-28 21:58] LABS: Transglutaminase IgA <1.0 U/mL
== END 2024-08-27 09:44 | disposition home or self-care (01) ==
LOC: HO.LAB 09:43
PROVIDERS: PCP Internal Medicine; Visit Provider Nurse Practitioner Family
DX: K21.9 Gastro-esophageal reflux disease without esophagitis (principal); R10.9 Unspecified abdominal pain; K58.2 Mixed irritable bowel syndrome; R14.0 Abdominal distension (gaseous)
CPT/HCPCS: 36415; 83690; 86364; 99202

== ENCOUNTER 2024-08-27 09:43 | Outpatient (AMB) | payer OTHER, SELFPAY ==
--- NOTE | 2024-08-27 09:46 | A.OFFVIS_ITS ---
Vital Signs 08/27/24 09:56 Height 5 ft 5 in BMI Reason not done Patient refused/unable BP 136/68 Blood Pressure Location Rt brachial Position Sitting Pulse 78 Pulse Source Pulse Oximeter Pulse Oximetry (%) 100 Oxygen Delivery Method Room Air Intake Visit Reasons: GERD w/ esophagitis hx. EGD consult. Intake Note: NEW PATIENT for GERD eval. Prior hx of colo/egd? [place] w/ Dr. Cruz within the last ~ 5 years. Chief Complaint; C/O reflux, epigastric pain, hx of IBS-D. Pt is taking omeprazole 40 mg but states that it has not resolved her sx. Pt actively trying to avoid late night eating and remaining vertical for as long as possible after eating to avoid reflux triggers. No additional concerns at this time Laborer Operator Required: No Accompanied by: Self / Same As Patient Allergies animal dander [ANIMAL HAIR] Allergy (Intermediate, Verified 07/19/24 08:56) ASTHMA, HIVES lactose [Lactose] Allergy (Mild, Verified 07/19/24 08:56) DIARRHEA HPI HPI GERD w/ esophagitis hx. EGD consult.: Details: 54-year-old female with past medical history of asthma, myofascial muscle pain cervical post laminectomy syndrome, lumbar degenerative disc disease anxiety, IBS, GERD, hypercholesteremia, hypertension, interstitial cystitis is here today for initial consultation. Colonoscopy with Dr. Cruz 07/18/2018 that was normal. Diverticulosis found. Patient had procedure as she had postprandial loose stools 5-7 times per week. Patient reports that she has ongoing symptoms. Patient states that she is trying to follow diet as best as she can due to her diagnosis of interstitial cystitis. Patient already has limited thinks that she can eat. Patient reports occasional trouble swallowing with occasional acid reflux and dyspepsia without odynophagia. Currently patient is taking omeprazole and feels like it is not really working as well as it did in the beginning. Patient reports acid reflux usually towards the end of the day. Patient also reports postprandial abdominal bloating. Denies melena, hematochezia, unintentional weight loss or ribbon like stools. Denies any nausea or vomiting. [facility] Medical History (Reviewed 08/27/24 @ 09:50 by Omkar Vann [facility] Hospital discharge follow-up Chronic pain of left ankle IBS (irritable bowel syndrome) Anxiety Depression Asthma Hx of flexible sigmoidoscopy COVID-19 vaccine series completed History of COVID-19 Dental abscess Dental infection Sinusitis, maxillary, chronic Acute sinusitis Diarrhea Cervical radiculopathy ASCUS (atypical squamous cells of undetermined significance) on gynecologic Papanicolaou smear complicating , antepartum Lumbar degenerative disc disease GERD (gastroesophageal reflux disease) Hypercholesterolemia Insomnia Hypertension Interstitial cystitis Degenerative disc disease, cervical Surgical History History of foot surgery Hx of cystoscopy History of surgery History of neck surgery S/P cervical discectomy H/O nasal septoplasty History of ankle surgery Status post laparoscopic surgery History of wisdom tooth extraction Family History Father PTSD (post-traumatic stress disorder) Mental health disorder Mother No problems noted. Maternal Grandmother Breast cancer Maternal Grandfather Myocardial infarction Maternal Uncle Past heart attack Skin cancer Myocardial infarction Other Substance use disorder Social History Housing: House Alcohol intake: current Comment: once a week 2 drinks Patient Tobacco Use Status: Never used Tobacco Years Smoked: quit 2009, CBD, vaping e-Cigarette/Vaping Use: Never Used Second Hand Smoke Exposure: No service: No Current occupational status: unemployed Cognitive needs: No Hearing needs: No Vision needs: Yes Review of Systems Const Denies weight gain and Denies weight loss ENT Reports no additional complaints, Denies dysphagia and Denies odynophagia Card Reports no additional complaints Resp Reports no additional complaints GI Reports abdominal pain (epigastric), Denies belching, Denies melena, Denies bloating, Denies change in bowel habits, Denies dysphagia, Denies excessive flatus, Denies dyspepsia, Reports heartburn, Denies diarrhea, Reports loose stools (occasional), Denies nausea, Denies odynophagia and Denies vomiting Reports no additional complaints Musc Reports no additional complaints Neuro Reports no additional complaints Psych Reports no additional complaints Endo Reports no additional complaints Physical Exam Vital Signs: Last Vital Signs Pulse 78 08/27/24 09:56 BP 136/68 08/27/24 09:56 Pulse Ox 100 08/27/24 09:56 Oxygen Delivery Method Room Air 08/27/24 09:56 Const General: healthy appearing, no acute distress and well developed Nutritional Appearance: well nourished Orientation/consciousness: patient oriented x3 Resp Effort & Inspection: normal respiratory effort, able to speak in complete sentences, no tracheal deviation and symmetric chest movement Auscultation: clear to auscultation bilaterally Cardio Rate: regular rate GI Inspection: Yes normal to inspection and No distended Palpation (GI): Soft to palpation, not firm, nontender and No hepatosplenomegaly present Auscultation: normal bowel sounds General: Yes no CVA tenderness Back/Spine/Pelvis Back: no CVA tenderness Skin General skin exam: elasticity normal, turgor normal and dry skin Neuro General: patient oriented x3 Psych Appearance: grossly normal Mental Status: mental status grossly normal Assessment & Plan Assessment & Plan (1) GERD (gastroesophageal reflux disease): Code(s): K21.9 - Gastro-esophageal reflux disease without esophagitis Category: Medical Qualifiers: Esophagitis presence: without esophagitis Qualified Code(s): K21.9 - Gastro-esophageal reflux disease without esophagitis (2) Irritable bowel syndrome: Code(s): K58.9 - Irritable bowel syndrome, unspecified Category: Medical Qualifiers: Irritable bowel syndrome type: with both diarrhea and constipation Qualified Code(s): K58.2 - Mixed irritable bowel syndrome (3) Postprandial abdominal bloating: Code(s): R14.0 - Abdominal distension (gaseous) (4) Postprandial diarrhea: Code(s): K52.9 - Noninfective gastroenteritis and colitis, unspecified Plan Discussed with patient avoiding dietary triggers and late night snacking. Staying upright for minimum 3 hours after meals discussed with patient. Patient will start esomeprazole in the morning. Postprandial abdominal bloating as well as epigastric pain. Will check transglutaminase and lipase. Low FODMAP diet discussed with patient. List of food recommended as well as list of food to avoid given to patient. Patient will follow-up in our office in 3 months, sooner on as needed basis. Patient is agreeable to this plan and verbalizes understanding of instructions. She was given the opportunity to ask questions and all questions answered. Thank you for allowing me to participate in her care Orders: Orders Transglutaminase IgA Today R10.9 - Unspecified abdominal pain Lipase Today R10.9 - Unspecified abdominal pain Medications: New esomeprazole magnesium (Nexium) 40 mg PO DAILY 30 caps 3RF K21.9 - Gastro- esophageal reflux disease without esophagitis Discontinued omeprazole Discontinued Reason: Doctor's Order 40 mg PO DAILY 90 days 90 caps 2RF K21.9 - Gastro-esophageal reflux disease without esophagitis Coding Level of Care Code New Pt Level 4 (54535) Diagnoses Gastroesophageal reflux disease without esophagitis K21.9 Esophagitis presence: without esophagitis Irritable bowel syndrome with both constipation and diarrhea K58.2 Irritable bowel syndrome type: with both diarrhea and constipation Postprandial abdominal bloating R14.0 Postprandial diarrhea K52.9 Time Spent (min) 45 Comment 30 minutes spent with patient and additional 15 minutes spent reviewing her records
[2024-08-27 09:56] VITALS: BP 136/68; PULSE 78; O2SAT 100
--- OUTSIDE RECORDS SUMMARY | 2024-08-27 11:05 | XMS_ITS | Clinical Summary ---
Author Organization [facility] Address [address] [place] [address] Care Team Providers Care Cadet Deck Name Role Phone Unavailable Primary Care Provider [...] MCG/ACT aerosol powder 3 Active HYDROcodone-fabrice taminophen ([place]) 5-325 MG tablet TAKE ONE TABLET BY [...] 1:30 PM EST Office Visit [facility] [address] [place] [address] Rosi Nowak DMD 05/29/2024 1:00 PM EST Office Visit [facility] [address] [place] [address] Omkar Fuller DMD History of tooth extraction, unspecified edentulism class (Primary Dx) from Last 3 Months Social History Tobacco [...] Care Team (Late st Contact Info) Description 08/27/2024 1:00 PM EDT Office Visit [facility] DEN INS ENROLLMENT [address] [place] [address] 10/10/2024 3:00 PM EDT Office Visit [facility] [address] [place] [address] Viviana Prado Health Maintenance Due Date Last [...] 2 - PCV) 04/12/2022 04/12/2021 COVID-19 Vaccine (2 - 2023- season) 2024 08/31/2020 Dental X-Ray: Full Mouth [...] FRENECTOMY (FRENULECTOMY) Routine 05/29/2024 1:00 PM EST PROPHYLAXIS - ADULT Routine 05/06/2024 3 :00 PM EST Dental calculus Dental plaque BITEWINGS - 4 RADIOGRAPHIC IMAGES Routine 12/22/2023 2:00 PM EDT PERIODIC ORAL EVALUATION - ESTABLISHED PATIENT Routine 12/22/2023 2:00 PM EDT INTRAORAL - COMPLETE SERIES OF RADIOGRAPHIC IMAGES Routine 04/21/2021 12:00 AM EST from Last 3 Months or Most Recently Relevant to Health Maintenance [facility] ST[facility] ADULT
--- OUTSIDE RECORDS SUMMARY | 2024-08-27 11:05 | XMS_ITS | Data Portability ---
Author Organization [facility] [employer] Address [address] [place] [address] [place] [address] Care Team Providers Care Autocad Detailer Name Role Phone WILBER DACOSTA Referring Provider [...] or close by major centers such as [place] or [facility]. She understood and took some notes. [...] None recorded. Lab vitamin B12, serum 024 [facility], [address] [place] [address], [place], [address], 4 11:16:50 folate, serum 024 ashtynefebcarine 1 [facility], [address] [facility], [place], [address], 4 15:38:59 mma (methylma lonic acid), serum 024 [facility], [address] [place] [address], [address], 4 11:19:07 homocyste ine, serum or plasma 024 [facility], [address] [place] [address], [address], 4 11:19:12 TSH, serum or plasma - E07.9 0[address] [facility] [address] [place] [address] Laboratory, [address] [place] [address], [address], 4 15:39:00 T4, free, serum - E07.[address] [facility], [address] [place] [address], [address], 4 15:39:00 vitamin D, 25-hydrox y, total, serum - E55.[address] [facility], [address] [place] [address], [address], 4 15:38:59 RPR (rapid plasma reagin), serum - A53.[address] [facility], [address] [place] [address], [address], 4 15:39:00 Referral None recorded. Procedures None recorded. Surgeries None recorded. Imaging None recorded. Medication Orders None recorded. Patient TargetsNo targets recorded. Patient Instructions Encounter Date Encounter Id Patient Instructions Last Modified By Organization Details Last Modified Time 09/05/2023 [id number] Discussion acros s issues of diagnoses and management and same day associated chart review and management greater than 50% greater than 60 minutes mrossen Not available 09/05/2023 14:45:21 10/24/2023 [id number] Discussion acros s issues of diagnoses and [...] Not available 09/05/20[id number] [facility] 13:09:32 Medications Name Sig Start Date [...] Updated DateTime 09/05/2023 165.1 cm 25 kg/m2 86667.86 g 12 /min Veena Cisneros [facility] 09/05/2023 13:09:20 Social History Question Answer Notes LastModified by Organizat ion Details LastModified Time Tobacco Smoking Status Never Smoker Veena guillen [facility] 09/05/2023 13:11:52 What Is Your Level Of Alcohol Consumption? Occasional Information not available 09/05/2023 What Is Your Level Of Caffeine Consumption? Moderate 1 Cup Daily Information not available 09/05/2023 What Is The Highest Grade Or Level Of School You Have Completed Or The Highest Degree You Have Received? 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 647385394 D51.0 Abnormal t hyroid hormone 839965958 R94.6 Vitamin D deficiency 347 30148 E55.9 Syphilis 26676273 A53.9 [id number] Krishna Jenkins MD [facility] [address] [place] [address] [place] [address] 10/24/2023 16:39:30 10/30/2023 15:36:01 Mild neurocognitive disorder 461802391 G31.84 Health Concerns Section Related Observation LastModified by Organization Detai ls LastModified Time None Recorded Concern Status LastModified by Organization Details LastModified Time None Recorded Advance Directives Directive None Recorded Payers Encounter Date Sequence Insurance Name Policy Number Policy Post Covered Member ID Post Member ID Guarantor Name 09/05/2023 1 [facility] NET PLAN (MEDICAID HMO) JOSE Shabazz [id number] Wendy Shabazz 10/24/2023 1 [facility]ALTH [facility] PLAN (MEDICAID HMO) JOSE Shabazz [id number] Wendy Sahbazz Notes Date Note Type Note Provider Name [...] for her mother last week for a [employer] application. She had difficulty so that she needed to obtain guidance from an eldercare social service worker. She thinks an earlier time she would not have needed such guidance. As an example, in 2007 she applied for medical guardianship for her mother was of her mother's of schizophrenia. She went to court, filled out forms and appeared in court all on her own, without an automatic folder seamer.She lives with her mother and her 10-year-old [...] this is a possibility. Krishna Jenkins MD [address] [place] [address], [phone], [facility] 09/05/2023 14:45:37 10/24/2023 text/html Neurology follow [...] for her mother last week for a [employer] application. She had difficulty so that she needed to obtain guidance from an eldercare social service worker. She thinks an earlier time she would not have needed such guidance. As an example, in 2007 she applied for medical guardianship for her mother was of her mother's of schizophrenia. She went to court, filled out forms and appeared in court all on her own, without an automatic folder seamer.She lives with her mother and her 10-year-old [...] this is a possibility. Krishna Jenkins MD [address] [place] [address] [place], [address], [facility] 10/24/2023 18:29:29 OBGyn Episode No OBEpisode recorded.
--- OUTSIDE RECORDS SUMMARY | 2024-08-27 11:05 | XMS_ITS | Encounter Summary ---
Author Organization [facility] Address [address] [place] [address] [place], [place] [address] Care Team Providers Care Stack Supervisor Name Role Phone Unavailable Primary Care Provider Unavailabl e Encounter Details Date Type Department Care Team (Latest Contact Info) Description 05/05/2021 Abstract [facility] CONVERSIONS Dental, Provider, DDS Social [...] Description 08/27/2024 1:00 PM EDT Office Visit [facility] DEN INS ENROLLMENT [address] [place] [address] 10/10/2024 3:00 PM EDT Office Visit [facility] [address] [place] [address] Viviana Prado documented as of this encounter Visit Diagnoses Not on filedocumented in this encounter
--- OUTSIDE RECORDS SUMMARY | 2024-08-27 11:05 | XMS_ITS | Clinical Summary ---
Author Organization [facility] Address [address] [place] [address] Care Team Providers Care Slot Floor Supervisor Name Role Phone Carrie Marshall Primary Care Provider [phone] Allergies No known active allergies Encounters Date Type Department Care Team Description 07/12/2024 3:14 PM EST - 07/12/2024 6:43 PM EST Emergency [facility] Emergency Department [address] [place] [address] Krishna Camacho MD Vasovagal near syncope [...] 75+ series) 2045 Procedures * Due to [facility] law, this organization might not be sharing negative HIV tests. Procedure Name Priority Date/Time Associated Diagnosis Comments BASIC METABOLIC PANEL STAT 07/12/2024 1:28 PM EST CBC AUTO DIFFERENTIAL STAT 07/12/2024 1:28 PM EST ECG 12-LEAD STAT 07/12/2024 1:13 PM EST HEART & VASCULAR - SCANNED 07/12/2024 from Last 3 Months Results * Due to [place] [employer] law, this organization might not be sharing negative HIV tests. * CBC Auto Differential (07/12/2024 1:28 PM EST) WBC 6.5 3.8 - 10.8 10*3/uL 07/12/2024 1:46 PM EST [facility] RBC 4.36 3.80 - 5.10 10*6/uL 07/12/2024 1:46 PM EST [facility] Hemoglobin 12.2 11.7 - 15.5 g/dL 07/12/2024 1:46 PM EST [facility] Hematocrit 37.8 35.0 - [...] - 3.90 10*3/uL 07/12/2024 1:46 PM EST [facility] Monocyte # 0.40 0.20 - 0.95 10*3/uL 07/12/2024 1:46 PM EST [facility] Eosinophil # 0.10 0.02 - 0.50 10*3/uL 07/12/2024 1:46 PM EST [facility] Basophil # <0.03 0.00 - 0.20 10*3/uL 07/12/2024 1:46 PM EST [facility] nRBC % 0.0 /100 WBCs 07/12/2024 1:46 PM EST [facility] nRBC # <0.01 <0.01 10*3/uL 07/12/2024 1:46 PM EST [facility] Blood Structure of peripheral vein / Unknown Venipuncture / Unknown 07/12/2024 1:28 PM EST 07/12/2024 1:38 PM EST us Krishna Camacho MD LAB BLOOD ORDERABLES Final Re sult [facility] [address] [place] [address], * (ABNORMAL) Basic Metabolic Panel (07/12/2024 1:28 PM EST) NA 143 135 - 145 mmol/L 07/12/2024 2:05 PM EST [facility] K 4.0 3.5 - 5.3 mmol/L 07/12/2024 2:05 PM EST [facility] Cl 109(H) 98 - 107 mmol/L 07/12/2024 2:05 PM EST [facility] CO2 23 22 - 32 mmol/L 07/12/2024 2:05 PM EST [facility] BUN 12 7 - 23 mg/dL 07/12/2024 2:05 PM EST [facility] Creatinine 0.84 0.50 - 1.20 mg/dL 07/12/2024 2:05 PM EST [facility] Glucose 99 65 - 99 mg/dL 07/12/2024 2:05 PM EST [facility] Calcium 9.8 8.6 - 10.5 mg/dL 07/12/2024 2:05 PM EST [facility] Anion Gap 11 5 - 15 07/12/2024 2:05 PM EST [facility] eGFR 83 >=60 mL/min/1. 73m2 07/12/2024 2:05 PM EST [facility] Comment:The estimated glomer ular [...] MD LAB BLOOD ORDERABLES Final Re sult [facility] [address] [place] [address], * ECG 12 lead For Preop? No (07/12/2024 1:13 PM EST) Ventricular Rate EKG 88 BPM MUSE EKG Atrial Rate 88 BPM MUSE EKG FL Interval 134 ms MUSE EKG QRS Interval 76 ms MUSE EKG QT Interval 356 ms MUSE EKG QTC Interval 430 ms MUSE EKG P [place] 44 degrees MUSE EKG R [place] -13 degrees MUSE EKG T Wave [place] 45 degrees MUSE EKG 07/12/2024 1:13 PM EST 07/20/2024 7:15 AM EST Impressions MUSE EKG - 07/20/2024 7:15 AM EST NORMAL SINUS RHYTHM LOW VOLTAGE QRS POOR ' r ' WAVE PROGRESSION ABNORMAL ECG NO PREVIOUS ECGS AVAILABLE Confirmed by Booker Greer ([id number]) on 07/20/2024 7:15:07 AM us Krishna Camacho MD ECG ORDERABLES Final Result [facility] EKG * HEART & VASCULAR - SCANNED (07/12/2024) Anatomical Region Laterality Modality Other us Onbase Scan Rodriguez SCANNED PROCEDURES Final Resu lt from Last 3 Months Insurance [employer] Care Teams Slot Floor Supervisor Relationship Specialty Start Date End Date Carrie Marshall [address] [place] [address] [place] [address] PCP - General Internal Medicine 07/12/24
--- OUTSIDE RECORDS SUMMARY | 2024-08-27 11:05 | XMS_ITS | Encounter Summary ---
Author Organization [employer] [facility] Address [address] [place] [address] [address] [place] [address] Care Team Providers Care Materials Planning Manager Name Role Phone Unavailable Primary Care Provider Unavailabl e Encounter Details Date Type Department Care Team (Latest Contact Info) Description 09/26/2018 Abstract [facility] CONVERSIONS Dental, Provider, DDS Social History [...] Description 08/27/2024 1:00 PM EDT Office Visit [facility] DEN INS ENROLLMENT [address] [place] [address] 10/10/2024 3:00 PM EDT Office Visit [facility] [address] [place] [address] Viviana Prado documented as of this encounter Visit Diagnoses Not on filedocumented in this encounter
--- OUTSIDE RECORDS SUMMARY | 2024-08-27 11:06 | XMS_ITS | Referral Summary ---
Author Organization [facility] Address [address] [place] [address] Care Team Providers Care Entry Level Manufacturing Engineer Name Role Phone Carrie Marshall Primary Care Provider [phone] Encounters Date Type Department Care Team Description 07/12/2024 3:14 PM EST - 07/12/2024 6:43 PM EST Emergency [facility] Emergency Department [address] [place] [phone] Krishna Camacho MD Vasovagal near syncope (Primary [...] <0.01 <0.01 10*3/uL 07/12/2024 1:46 PM EST [facility] Blood Structure of peripheral vein / Unknown Venipuncture / Unknown 07/12/2024 1:28 PM EST 07/12/2024 1:38 PM EST us Krishna Camacho MD LAB BLOOD ORDERABLES Final Re sult [facility] [address] [place] [address], * (ABNORMAL) Basic Metabolic Panel (07/12/2024 1:28 PM EST) NA 143 135 - 145 mmol/L 07/12/2024 2:05 PM EST [facility] K 4.0 3.5 - 5.3 mmol/L 07/12/2024 2:05 PM EST [facility] Cl 109(H) 98 - 107 mmol/L 07/12/2024 2:05 PM EST [facility] CO2 23 22 - 32 mmol/L 07/12/2024 2:05 PM EST [facility] BUN 12 7 - 23 mg/dL 07/12/2024 2:05 PM EST [facility] Creatinine 0.84 0.50 - 1.20 mg/dL 07/12/2024 2:05 PM EST [facility] Glucose 99 65 - 99 mg/dL 07/12/2024 2:05 PM EST [facility] Calcium 9.8 8.6 - 10.5 mg/dL 07/12/2024 2:05 PM EST [facility] Anion Gap 11 5 - 15 07/12/2024 2:05 PM EST [facility] eGFR 83 >=60 mL/min/1. 73m2 07/12/2024 2:05 PM EST [facility] Comment:The estimated glomer ular [...] ORDERABLES Final Re sult Performing Organization Address City/[facility]/ZIP Co de Phone Number [facility] [address] [place] [address], [place] * ECG 12 lead For Preop? No (07/12/2024 1:13 PM EST) Ventricular Rate EKG 88 BPM MUSE EKG Atrial Rate [address] Interval 134 ms MUSE EKG QRS Interval 76 ms MUSE EKG QT Interval 356 ms MUSE EKG QTC Interval 430 ms MUSE EKG P [place] 44 degrees MUSE EKG R [place] -13 degrees MUSE EKG T Wave [place] 45 degrees MUSE EKG 07/12/2024 1:13 PM EST 07/20/2024 7:15 AM EST Impressions MUSE EKG - 07/20/2024 7:15 AM EST NORMAL SINUS RHYTHM LOW VOLTAGE QRS POOR ' r ' WAVE PROGRESSION ABNORMAL ECG NO PREVIOUS ECGS AVAILABLE Confirmed by Booker Greer ([id number]) on 07/20/2024 7:15:07 AM us Krishna Camacho MD ECG ORDERABLES Final Result Performing Organization Address [facility] Co de Phone Number MUSE EKG * HEART & VASCULAR - SCANNED (07/12/2024) Anatomical Region Laterality Modality Other us Onbase Scan Rodriguez SCANNED PROCEDURES Final Resu lt from Last 3 Months Insurance [employer] Care Teams Entry Level Manufacturing Engineer Relationship Specialty Start Date End Date Carrie Marshall [address] [place] [address] [place] [address] PCP - General Internal Medicine 07/12/24
== END 2024-08-27 10:12 | disposition home or self-care (01) ==
LOC: HO.HGI 09:43
PROVIDERS: PCP Internal Medicine; Visit Provider Nurse Practitioner Family
DX: K21.9 Gastro-esophageal reflux disease without esophagitis (principal); K58.2 Mixed irritable bowel syndrome; R14.0 Abdominal distension (gaseous)
CPT/HCPCS: 99204

== ENCOUNTER 2024-09-05 09:07 | Outpatient (REF) | payer OTHER, SELFPAY ==
[2024-09-05 11:08] LABS: Influenza A PCR NEGATIVE (Negative); Influenza B PCR NEGATIVE (Negative); Resp Syncy Virus RNA Qual PCR NEGATIVE (Negative); SARS COV2 PCR INHOUSE NEGATIVE (Negative)
--- OUTSIDE RECORDS SUMMARY | 2024-09-05 11:35 | XMS_ITS | Clinical Summary ---
Author Organization [facility] Address [address] [place] [address] Care Team Providers Care Jailkeeper Name Role Phone Carrie Marshall Primary Care Provider [phone] Allergies No known active allergies Encounters Date Type Department Care Team Description 07/12/2024 3:14 PM EST - 07/12/2024 6:43 PM EST Emergency [facility] Emergency Department [address] [place] [address] Krishna Camacho MD Vasovagal near syncope [...] 75+ series) 2045 Procedures * Due to [facility] law, this organization might not be sharing negative HIV tests. Procedure Name Priority Date/Time Associated Diagnosis Comments BASIC METABOLIC PANEL STAT 07/12/2024 1:28 PM EST CBC AUTO DIFFERENTIAL STAT 07/12/2024 1:28 PM EST ECG 12-LEAD STAT 07/12/2024 1:13 PM EST HEART & VASCULAR - SCANNED 07/12/2024 from Last 3 Months Results * Due to [place] [employer] law, this organization might not be sharing negative HIV tests. * CBC Auto Differential (07/12/2024 1:28 PM EST) WBC 6.5 3.8 - 10.8 10*3/uL 07/12/2024 1:46 PM EST [facility] [employer] [facility] RBC 4.36 3.80 - 5.10 10*6/uL 07/12/2024 1:46 PM EST [facility] [facility] Hemoglobin 12.2 11.7 - 15.5 g/dL 07/12/2024 1:46 PM EST [facility] Hematocrit 37.8 35.0 - [...] - 3.90 10*3/uL 07/12/2024 1:46 PM EST [facility] Monocyte # 0.40 0.20 - 0.95 10*3/uL 07/12/2024 1:46 PM EST [facility] Eosinophil # 0.10 0.02 - 0.50 10*3/uL 07/12/2024 1:46 PM EST [facility] Basophil # <0.03 0.00 - 0.20 10*3/uL 07/12/2024 1:46 PM EST [facility] nRBC % 0.0 /100 WBCs 07/12/2024 1:46 PM EST [facility] nRBC # <0.01 <0.01 10*3/uL 07/12/2024 1:46 PM EST [facility] Blood Structure of peripheral vein / Unknown Venipuncture / Unknown 07/12/2024 1:28 PM EST 07/12/2024 1:38 PM EST us Krishna Camacho MD LAB BLOOD ORDERABLES Final Re sult [facility] [address] [place] [address], * (ABNORMAL) Basic Metabolic Panel (07/12/2024 1:28 PM EST) NA 143 135 - 145 mmol/L 07/12/2024 2:05 PM EST [facility] K 4.0 3.5 - 5.3 mmol/L 07/12/2024 2:05 PM EST [facility] Cl 109(H) 98 - 107 mmol/L 07/12/2024 2:05 PM EST [facility] CO2 23 22 - 32 mmol/L 07/12/2024 2:05 PM EST [facility] BUN 12 7 - 23 mg/dL 07/12/2024 2:05 PM EST [facility] Creatinine 0.84 0.50 - 1.20 mg/dL 07/12/2024 2:05 PM EST [facility] Glucose 99 65 - 99 mg/dL 07/12/2024 2:05 PM EST [facility] Calcium 9.8 8.6 - 10.5 mg/dL 07/12/2024 2:05 PM EST [facility] Anion Gap 11 5 - 15 07/12/2024 2:05 PM EST [facility] eGFR 83 >=60 mL/min/1. 73m2 07/12/2024 2:05 PM EST [facility] Comment:The estimated glomer ular [...] MD LAB BLOOD ORDERABLES Final Re sult [employer] [facility] LAB[facility] [address] [place] [address], * ECG 12 lead For Preop? No (07/12/2024 1:13 PM EST) Ventricular Rate EKG 88 BPM MUSE EKG Atrial Rate 88 BPM MUSE EKG [place] Interval 134 ms MUSE EKG QRS Interval 76 ms MUSE EKG QT Interval 356 ms MUSE EKG QTC Interval 430 ms MUSE EKG P [place] 44 degrees MUSE EKG R [place] -13 degrees MUSE EKG T Wave [place] 45 degrees MUSE EKG 07/12/2024 1:13 PM EST 07/20/2024 7:15 AM EST Impressions MUSE EKG - 07/20/2024 7:15 AM EST NORMAL SINUS RHYTHM LOW VOLTAGE QRS POOR ' r ' WAVE PROGRESSION ABNORMAL ECG NO PREVIOUS ECGS AVAILABLE Confirmed by Booker Greer ([id number]) on 07/20/2024 7:15:07 AM us Krishna Camacho MD ECG ORDERABLES Final Result MUSE EKG * HEART & VASCULAR - SCANNED (07/12/2024) Anatomical Region Laterality Modality Other us Onbase Scan Rodriguez SCANNED PROCEDURES Final Resu lt from Last 3 Months Insurance [employer] Care Teams Jailkeeper Relationship Specialty Start Date End Date Carrie Marshall [address] [place] [address] [place] [address] PCP - General Internal Medicine 07/12/24
--- OUTSIDE RECORDS SUMMARY | 2024-09-05 11:35 | XMS_ITS | Referral Summary ---
Author Organization [facility] Address [address] [place] [address] Care Team Providers Care Centrifugal Screen Tender Name Role Phone Carrie Marshall Primary Care Provider Encounters Date Type Department Care Team Description 07/12/2024 3:14 PM EST - 07/12/2024 6:43 PM EST Emergency [facility] Emergency Department [address] [place] [address] Krishna Camacho MD Vasovagal near syncope (Primary [...] Not on file Procedures * Due to [place] state law, this organization might not be sharing negative HIV tests. Procedure Name Priority Date/Time Associated Diagnosis Comments BASIC METABOLIC PANEL STAT 07/12/2024 1:28 PM EST CBC AUTO DIFFERENTIAL STAT 07/12/2024 1:28 PM EST ECG 12-LEAD STAT 07/12/2024 1:13 PM EST HEART & VASCULAR - SCANNED 07/12/2024 from Last 3 Months Results * Due to [place] state law, this organization might not be [...] <0.01 <0.01 10*3/uL 07/12/2024 1:46 PM EST [facility] Blood Structure of peripheral vein / Unknown Venipuncture / Unknown 07/12/2024 1:28 PM EST 07/12/2024 1:38 PM EST us Krishna Camacho MD LAB BLOOD ORDERABLES Final Re sult [facility] [address] [place] [address], * (ABNORMAL) Basic Metabolic Panel (07/12/2024 1:28 PM EST) NA 143 135 - 145 mmol/L 07/12/2024 2:05 PM EST [facility] K 4.0 3.5 - 5.3 mmol/L 07/12/2024 2:05 PM EST [facility] Cl 109(H) 98 - 107 mmol/L 07/12/2024 2:05 PM EST [facility] CO2 23 22 - 32 mmol/L 07/12/2024 2:05 PM EST [facility] BUN 12 7 - 23 mg/dL 07/12/2024 2:05 PM EST [facility] Creatinine 0.84 0.50 - 1.20 mg/dL 07/12/2024 2:05 PM EST [facility] Glucose 99 65 - 99 mg/dL 07/12/2024 2:05 PM EST [facility] Calcium 9.8 8.6 - 10.5 mg/dL 07/12/2024 2:05 PM EST [facility] Anion Gap 11 5 - 15 07/12/2024 2:05 PM EST [facility] eGFR 83 >=60 mL/min/1. 73m2 07/12/2024 2:05 PM EST [facility] Comment:The estimated glomer ular [...] ORDERABLES Final Re sult Performing Organization Address City/[facility]/ZIP Co de Phone Number [facility] [address] [place] [address], [place] * ECG 12 lead For Preop? No (07/12/2024 1:13 PM EST) Ventricular Rate EKG 88 BPM MUSE EKG Atrial Rate 88 BPM MUSE EKG PA Interval 134 ms MUSE EKG QRS Interval 76 ms MUSE EKG QT Interval 356 ms MUSE EKG QTC Interval 430 ms MUSE EKG P [place] 44 degrees MUSE EKG R [place] -13 degrees MUSE EKG T Wave [place] 45 degrees MUSE EKG 07/12/2024 1:13 PM EST 07/20/2024 7:15 AM EST Impressions MUSE EKG - 07/20/2024 7:15 AM EST NORMAL SINUS RHYTHM LOW VOLTAGE QRS POOR ' r ' WAVE PROGRESSION ABNORMAL ECG NO PREVIOUS ECGS AVAILABLE Confirmed by Booker Greer ([id number]) on 07/20/2024 7:15:07 AM us Krishna Camacho MD ECG ORDERABLES Final Result Performing Organization Address [facility] Co de Phone Number MUSE EKG * HEART & VASCULAR - SCANNED (07/12/2024) Anatomical Region Laterality Modality Other us Onbase Scan Rodriguez SCANNED PROCEDURES Final Resu lt from Last 3 Months Insurance [employer] Care Teams Centrifugal Screen Tender Relationship Specialty Start Date End Date Carrie Marshall [address] [place] [address] [place] [address] PCP - General Internal Medicine 07/12/24
== END 2024-09-05 09:08 | disposition home or self-care (01) ==
LOC: HO.LAB 09:07
PROVIDERS: PCP Internal Medicine
DX: Z00.01 Encounter for general adult medical examination with abnormal findings (principal); I10 Essential (primary) hypertension; N30.10 Interstitial cystitis (chronic) without hematuria; E78.00 Pure hypercholesterolemia, unspecified; K21.9 Gastro-esophageal reflux disease without esophagitis; J45.20 Mild intermittent asthma, uncomplicated; K58.2 Mixed irritable bowel syndrome; F41.1 Generalized anxiety disorder; J02.9 Acute pharyngitis, unspecified; N64.4 Mastodynia; R09.89 Other specified symptoms and signs involving the circulatory and respiratory systems
CPT/HCPCS: 0241U; 96127; 99212; 99396

== ENCOUNTER 2024-09-05 09:07 | Outpatient (AMB) | payer OTHER, SELFPAY ==
[2024-09-05 09:10] VITALS: BP 110/76; PULSE 88; O2SAT 97; BMI 26.3
--- NOTE | 2024-09-05 09:10 | MHC.PC.OV ---
Vital Signs 09/05/24 09:10 Height 5 ft 5 in Weight 158 lb BMI 26.3 BP 110/76 Blood Pressure Location Lt brachial Position Sitting Pulse 88 Pulse Source Pulse Oximeter Pulse Oximetry (%) 97 Oxygen Delivery Method Room Air Intake Visit Reasons: annual physical Leather Lacer Required: No Accompanied by: Self / Same As Patient Allergies animal dander [ANIMAL HAIR] Allergy (Intermediate, Verified 09/05/24 09:24) ASTHMA, HIVES lactose [Lactose] Allergy (Mild, Verified 09/05/24 09:24) DIARRHEA Medication List - Last Reconciled 09/05/24 by Bridgette Rodas PA-C albuterol sulfate 90 mcg/actuation (Ventolin HFA) 2 puffs PO Q4-6H PRN azelastine 2 sprays intranasal BID bupropion HCl 75 mg PO DAILY 90 days bupropion HCl XL 150 mg PO DAILY cholecalciferol (vitamin D3) 50 mcg PO DAILY dextroamphetamine-amphetamine 5 mg (Adderall) 5 mg PO DAILY dextroamphetamine-amphetamine 5 mg ER (Adderall XR) 1 cap PO QAM dicyclomine 20 mg (2 x 10 mg) PO BID diphenhydramine HCl (Banophen) 50 mg PO BEDTIME PRN epinephrine 0.3 mg (0.3 mL) IM ONCE PRN escitalopram oxalate 10 mg PO DAILY esomeprazole magnesium (Nexium) 40 mg PO DAILY fexofenadine 180 mg PO DAILY PRN 90 days fluticasone propion-salmeterol 250-50 mcg/dose (Advair Diskus) 1 inh inhalation Q12H fluticasone propionate 50 mcg/actuation 2 sprays intranasal DAILY gabapentin 100 mg PO TID hydrocodone-acetaminophen 5-325 mg 1 tab PO TID PRN 30 days ibuprofen 800 mg PO Q12H PRN lisinopril 5 mg PO DAILY loperamide (Anti-Diarrheal (loperamide)) 2 mg PO QID PRN 30 days magnesium oxide 400 mg PO DAILY menthol 5% (Cold and Hot (menthol)) 1 patch topical DAILY PRN [id number]-[id number]-xse 118-10-40.8-36 mg (Uribel) 1 tab PO TID montelukast 10 mg PO BEDTIME 90 days phenazopyridine (Pyridium) 200 mg PO Q8H PRN promethazine 25 mg PO Q12H PRN zolpidem 10 mg PO BEDTIME 90 days Tobacco use date assessed: 09/05/24 Dental Screening Dental Screen Date: 09/05/24 Did you have a dental visit in the last 12 months?: No Did you have a dental problem in the last 6 months where you did not have access to dental care?: No Was dental information given to patient?: No HPI annual physical HPI Details [age] year old female with past medical history of GERD, hypertension, hypercholesterolemia, asthma, IBS, generalized anxiety disorder last seen 06/[address] Marshall coming in for annual exam.? In review of the notes, patient was seen by GI 08/2024 advised low FODMAP diet and switch to esomeprazole for acid reflux. Presenting with an upper respiratory infection. The symptoms started Monday and include sore throat, bad sinus pain, and cough. She experienced sweating and chills, possibly indicative of fever, along with shortness of breath requiring albuterol. A home COVID-19 test was negative. Her symptoms began after her daughter fell ill, although her daughter has not been tested. The patient reported difficulty swallowing and denies nausea, vomiting, constipation, diarrhea, or chest pain. She mentioned pain under her right arm and into the right breast unrelated to neck surgery pain, lasting for extended periods over the last couple of months. She follows with a psychiatrist and counselor through [facility] and we will be trying Spravato in the next several months. mammogram: 06/2024 colonoscopy: following with GI appt to schedule coming up pap smear: overdue - patient to schedule vaccinations: due for Td but office is out of stock [facility] [place] Medical History Pneumonia due to COVID-19 virus Hospital discharge follow-up Chronic pain of left ankle IBS (irritable bowel syndrome) Anxiety Depression Asthma Hx of flexible sigmoidoscopy COVID-19 vaccine series completed History of COVID-19 Dental abscess Dental infection Sinusitis, maxillary, chronic Acute sinusitis Diarrhea Cervical radiculopathy ASCUS (atypical squamous cells of undetermined significance) on gynecologic Papanicolaou smear complicating , antepartum Lumbar degenerative disc disease GERD (gastroesophageal reflux disease) Hypercholesterolemia Insomnia Hypertension Interstitial cystitis Degenerative disc disease, cervical Surgical History History of foot surgery Hx of cystoscopy History of surgery History of neck surgery S/P cervical discectomy H/O nasal septoplasty History of ankle surgery Status post laparoscopic surgery History of wisdom tooth extraction Family History Father PTSD (post-traumatic stress disorder) Mental health disorder Mother No problems noted. Maternal Grandmother Breast cancer Maternal Grandfather Myocardial infarction Maternal Uncle Past heart attack Skin cancer Myocardial infarction Other Substance use disorder Social History Housing: House Alcohol intake: current Comment: once a week 2 drinks Patient Tobacco Use Status: Never used Tobacco Years Smoked: quit 2009, CBD, vaping e-Cigarette/Vaping Use: Never Used Second Hand Smoke Exposure: No service: No Current occupational status: unemployed Cognitive needs: No Hearing needs: No Vision needs: Yes Questionnaire PHQ-9 Over the last 2 weeks, how often have you been bothered by any of the following problems? 1. Little interest or pleasure in doing things: more than half the days 2. Feeling down, depressed, or hopeless: nearly every day 3. Trouble falling or staying asleep, or sleeping too much: nearly every day 4. Feeling tired or having little energy: nearly every day 5. Poor appetite or overeating: more than half the days 6. Feeling bad about yourself - or that you are a failure or have let yourself or your family down: more than half the days 7. Trouble concentrating on things, such as reading the newspaper or watching television: more than half the days 8. Moving or speaking so slowly that other people could have noticed. Or the opposite - being so fidgety or restless that you have been moving around a lot more than usual: not at all 9. Thoughts that you would be better off or of hurting yourself in some way: several days Total score: 18 Depression Screening Interpretation: Positive Depression Screening Follow-up: Existing condition and In treatment Depression Screening Done: Yes 05324 - PHQ-9 Billing: Yes Source: Developed by Drs. Vineet Centeno, Brent Javier and colleagues, with an educational mulugeta from [employer]. Thrive Questionnaire Date Thrive assessed: 09/05/24 I am a: Patient What is your living situation today?: I have a steady place to live Within the past 12 months, did the food you bought not last and you didn't have the money to get more?: Never true Within the past 12 months, did you worry whether your food would run out before you got money to buy more?: Never true Do you have trouble paying for medicines?: No Do you have trouble getting transportation to medical appointments?: No Do you have trouble paying your heating and electricity bill?: No Do you have trouble taking care of your child, family member or friend?: No Do you have trouble with day-to-day activities such as bathing, preparing meals, shopping, managing finances, etc.?: No Are you currently unemployed and looking for a job?: No Are you interested in more education?: No Please select the resources that you would like help with: None Currently or been in a relationship where the following occur: No concerns reported THRIVE Score: 0 AUDIT C Alcohol Use Questionnaire (AUDIT-C) 1. How often do you have a drink containing alcohol?: 2-4 times a month 2. How many drinks containing alcohol do you have on a typical day when you are drinking?: 1 or 2 3. How often do you have six or more drinks on one occasion?: Never Total Score: 2 SURENDRA-7 AMB Questionnaire SURENDRA-7 Date SURENDRA - 7 assessed: 09/05/24 Feeling nervous, anxious, or on edge: 0 = Not at all Not being able to stop or control worryin = Not at all Worrying too much about different things: 0 = Not at all Trouble relaxin = Not at all Being so restless that it is hard to sit still: 0 = Not at all Becoming easily annoyed or irritable: 0 = Not at all Feeling afraid as if something awful might happen: 0 = Not at all Total SURENDRA-7 score (0-4 normal; 5-9 mild; 10-14 moderate; 15-21 severe): 0 Source: Developed by Drs. Vineet Centeno, Brent Javier and colleagues, with an educational mulugeta from [employer]. SURENDRA-7 Assessment Billing SURENDRA-7 Assessment Tool: SURENDRA-7 Assessment 25238 Review of Systems Const Reports body aches, Denies fatigue, Denies fever(s), Denies frequent falls, Denies headache(s) and Denies weakness Eyes Reports no additional complaints and Denies change in vision ENT Reports dysphagia, Denies dizziness, Denies facial pain, Denies headache(s), Denies nasal congestion and Reports odynophagia Card Denies chest pain, Denies irregular heart rhythm and Denies dyspnea Resp Denies cough and Denies dyspnea GI Denies abdominal pain, Denies constipation, Reports dysphagia, Denies dyspepsia, Denies diarrhea, Reports nausea, Reports odynophagia and Denies vomiting Denies urinary frequency, Denies dysuria, Denies urinary hesitancy and Denies urinary urgency Musc Denies back pain and Denies myalgias Skin/Breast Reports system reviewed and no additional complaints, except as documented Neuro Denies dizziness, Denies frequent falls, Denies headache(s) and Denies weakness Psych Reports no additional complaints Endo Denies fatigue Physical exam (Primary Care) Vital Signs: Last Vital Signs Pulse 88 09/05/24 09:10 BP 110/76 09/05/24 09:10 Pulse Ox 97 09/05/24 09:10 Oxygen Delivery Method Room Air 09/05/24 09:10 BMI result Body Mass Index 26.3 Tobacco/Smoking Status: Tobacco use Status Tobacco use date assessed 09/05/24 09/05/24 09:19 Patient Tobacco Use Status Never used Tobacco 09/05/24 09:19 e-Cigarette/Vaping Use Never Used 09/05/24 09:19 PHQ-9: PHQ-9 Score PHQ-9: Total score 18 09/05/24 09:26 Depression Screening Interpretation: Positive Depression Screening Follow-up: Existing condition and In treatment Thrive Assessment: Date of Thrive Assessment Date Thrive assessed 09/05/24 09/05/24 09:19 Currently or been in a relationship where the following occur: No concerns reported Const General: cooperative, healthy appearing, comfortable and no acute distress Orientation/consciousness: patient oriented x3 HENMT Head: Yes normocephalic Ears: hearing grossly normal bilaterally, external ears normal, TM's normal bilaterally and EAC's normal General nose exam: Normal external nose present Face and sinus: Yes normal facial exam and Yes sinuses nontender Mouth: Normal oral and palatal mucosa present and tongue normal Throat: Yes posterior oropharynx normal Eyes General: appearance normal, both eyes and all related structures Conjunctivae: conjunctivae normal Pupils: Equal, round and reactive pupils present EOM: EOMs intact bilaterally and No Nystagmus present Neck Neck: Yes normal visual inspection, Yes full ROM and Yes no lymphadenopathy Chest Other: Tenderness to palpation over right axilla and lateral aspect of right breast no masses palpated no tenderness to palpation over left breast or axilla and no masses palpated Chest palpation & inspection: normal inspection of the chest Resp Effort & Inspection: normal respiratory effort Auscultation: clear to auscultation bilaterally, no crackles, no rales, no rhonchi, no wheezes and breath sounds present Cardio Rate: regular rate Rhythm: regular rhythm Peripheral pulses: radial pulses present and dorsalis pedis present GI Inspection: Yes normal to inspection and No Abdominal wall edema Palpation (GI): Soft to palpation, not firm and nontender Auscultation: normal bowel sounds Rectal Exam - Female: deferred General: Yes no CVA tenderness Back/Spine/Pelvis Back: no CVA tenderness Skin General skin exam: no rashes or lesions noted Neuro General: patient oriented x3 Cranial nerves: Yes Equal, round and reactive pupils present, Yes Midline tongue present, Yes Ability to bilaterally elevate shoulders present and No Nystagmus present Gait exam (Neuro): Normal gait present Extrem General: Yes normal to inspection, Yes full ROM, No no pedal edema and No edema Psych Speech and movement: Normal speech and movement present Affect: normal affect Insight: Good insight present (Psych) Judgement: Good judgement present (Psych) Coding Level of Care Code Est Pt Level 4 (21481) Est Pt Prev Care 40-64y(95265) Diagnoses Essential hypertension I10 Hypertension type: essential hypertension Interstitial cystitis N30.10 Hypercholesterolemia E78.00 Gastroesophageal reflux disease without esophagitis K21.9 Esophagitis presence: without esophagitis Mild intermittent asthma without complication J45.20 Asthma complication type: uncomplicated Asthma persistence: intermittent Asthma severity: mild Irritable bowel syndrome with both constipation and diarrhea K58.2 Irritable bowel syndrome type: with both diarrhea and constipation Generalized anxiety disorder F41.1 Annual physical exam Z00.00 Sore throat J02.9 Breast pain, right N64.4 Additional Codes SURENDRA-7 Assessment Billing - SURENDRA-7 Assessment Tool: SURENDRA-7 Assessment 49400 ([id number]) PHQ-9 - 58564 - PHQ-9 Billing: Yes ([id number]) Assessment & Plan Assessment & Plan (1) Hypertension: Code(s): I10 - Essential (primary) hypertension Category: Medical Qualifiers: Hypertension type: essential hypertension Qualified Code(s): I10 - Essential (primary) hypertension Plan: Continue on current blood pressure medication. Avoid salt intake and encourage healthy diet and regular exercise. (2) Interstitial cystitis: Code(s): N30.10 - Interstitial cystitis (chronic) without hematuria Category: Medical Plan: Patient is currently following with Urology for interstitial cystitis continued on Pyridium for urinary pain and has follow up 10/07/2024 with urology. (3) Hypercholesterolemia: Code(s): E78.00 - Pure hypercholesterolemia, unspecified Category: Medical Plan: Avoid foods that are high in cholesterol such as red meat, fried foods, eggs and baked goods. Triglyceride goal of less than 150 and LDL goal of less than 130. Referral was placed to [facility] today. (4) GERD (gastroesophageal reflux disease): Code(s): K21.9 - Gastro-esophageal reflux disease without esophagitis Category: Medical Qualifiers: Esophagitis presence: without esophagitis Qualified Code(s): K21.9 - Gastro-esophageal reflux disease without esophagitis Plan: Avoid trigger foods such as citrus, tomato products, soda, caffeine, spicy foods and other foods that may be irritating to your stomach. Avoid laying flat 3-4 hours after eating and elevate the head of the bed 30 degrees to prevent acid from moving into the esophagus. Continue to follow with GI (5) Asthma: Code(s): J45.909 - Unspecified asthma, uncomplicated Category: Medical Qualifiers: Asthma complication type: uncomplicated Asthma persistence: intermittent Asthma severity: mild Qualified Code(s): J45.20 - Mild intermittent asthma, uncomplicated Plan: Asthma currently controlled on present medications. Continue on inhalers.? Avoid triggers such as allergies. (6) Irritable bowel syndrome: Code(s): K58.9 - Irritable bowel syndrome, unspecified Category: Medical Qualifiers: Irritable bowel syndrome type: with both diarrhea and constipation Qualified Code(s): K58.2 - Mixed irritable bowel syndrome Plan: Continue to follow with Gastroenterology was advised to maintain low FODMAP diet and continue on dicyclomine and esomeprazole as recommended by GI (7) [facility] [address] [place] [phone] Code(s): F41.1 - Generalized anxiety disorder Category: Medical Plan: Continue to follow with [facility] and continue on current medication regimen. Per patient she will be trying the Spravato nasal spray with her psychiatrist in the next few months. (8) Annual physical exam: Code(s): Z00.00 - Encounter for general adult medical examination without abnormal findings Category: Medical Plan: Patient is up-to-date on all recommended routine screenings and vaccinations for her age. Healthy diet and regular exercise is encouraged. Blood work was up-to-date and reviewed with the patient today. (9) Sore throat: Code(s): J02.9 - Acute pharyngitis, unspecified Category: Medical Plan: Patient having new onset sore throat along with upper respiratory symptoms believes she may have had a fever last night. Plan to obtain upper respiratory viral panel as well as throat culture to evaluate for strep. Her exam is not consistent with strep throat more likely a viral upper respiratory infection. I did discuss the low likelihood of bacterial at this time given the recent onset. Advised patient to reach out symptoms worsen or persist. (10) Breast pain, right: Code(s): N64.4 - Mastodynia Category: Medical Plan: Patient complaining of right breast pain that radiates into the axilla she did recently have a negative mammogram 06/2024. The pain is new since her mammogram plan to obtain right breast ultrasound and right breast diagnostic mammogram for further evaluation. No observed rashes and no reported nipple discharge or skin changes. Plan The patient will undergo viral testing including COVID-19, flu, and RSV at the [facility], alongside a throat culture for strep evaluation. Cholesterol management will focus on dietary adjustments, supported by a [facility] consultation. For right arm pain, an ultrasound and a more detailed mammogram are planned. Depression management is maintained with her current providers, including a new trial of Spiriva nasal spray with ketamine. She is to follow up in three months for further cholesterol level monitoring and reassessment of symptoms. This note was constructed using voice recognition software. While every effort has been made to ensure accuracy and diesel powerplant mechanic helper, still areas may have been included sometimes these areas may affect the content or meeting of the given symptoms. Total time spent caring for the patient today was 30 minutes. This includes time spent before the visit reviewing the chart, time spent during the visit, and time spent after the visit and documentation. Patient was informed and verbally consented to the use of an ambient scribe for clinic note documentation during this visit. Orders: Orders MM tomosynthesis diagnostic RT Today N64.4 - Mastodynia US breast RT limited Today N64.4 - Mastodynia SARS-CoV2/FLU/RSV Today R09.89 - Other specified symptoms and signs involving the circulatory and respiratory systems Throat Culture Today J02.9 - Acute pharyngitis, unspecified Lipid Panel 3 Months E78.00 - Pure hypercholesterolemia, unspecified Referrals [facility] Referral E78.00 - Pure hypercholesterolemia, unspecified, K21.9 - Gastro-esophageal reflux disease without esophagitis
--- OUTSIDE RECORDS SUMMARY | 2024-09-05 10:00 | XMS_ITS | Data Portability ---
Author Organization [facility] [employer] Dr[employer] Map Address [address] [place] [address] [place] [address] Care Team Providers Care Interventional Sale Consultant Name Role Phone WILBER DACOSTA Referring Provider [...] have clinical sites close to this area, [place] or close by major centers such as [place] or [facility] ock. She understood and took some [...] None recorded. Lab vitamin B12, serum 024 [facility], [address] [place] [address], [id number], 4 11:16:50 folate, serum 024 vlefebvre 1 [facility], [address] [place] [address], [place], [address], 4 15:38:59 mma (methylma lonic acid), serum 024 [facility], [address] [place] [address], [address], 4 11:19:07 homocyste ine, serum or plasma 024 [facility], [address] [place] [address], [address], 4 11:19:12 TSH, serum or plasma - E07.[address] [facility], [address] [place] [address], [address], 4 15:39:00 T4, free, serum - E07.[address] [facility], [address] [place] [address], [address], 4 15:39:00 vitamin D, 25-hydrox y, total, serum - E55.[address] [facility], [address] [place] [address], [address], 4 15:38:59 RPR (rapid plasma reagin), serum - A53.[address] [facility], [address] [place] [address], [address], 4 15:39:00 Referral None recorded. Procedures None recorded. Surgeries None recorded. Imaging None recorded. Medication Orders None recorded. Patient TargetsNo targets recorded. Patient Instructions Encounter Date Encounter Id Patient Instructions Last Modified By Organization Details Last Modified Time 09/05/2023 [id number] Discussion acros s issues of diagnoses and management and same day associated chart review and management greater than 50% greater than 60 minutes mrossen Not available 09/05/2023 14:45:21 10/24/2023 [id number] Discussion acros s issues of diagnoses and [...] Not available 09/05/2023 [id number] RxNorm Veena Cisneros [facility] 4 13:09:32 Medications Name Sig Start [...] Updated DateTime 09/05/2023 165.1 cm 25 kg/m2 20829.86 g 12 /min Veena Cisneros [facility] 09/05/2023 13:09:20 Social History Question Answer Notes LastModified by Organizat ion Details LastModified Time Tobacco Smoking Status Never Smoker Veena guillen [facility] 09/05/2023 13:11:52 What Is Your Level Of Alcohol Consumption? Occasional Information not available 09/05/2023 What Is Your Level Of Caffeine Consumption? Moderate 1 Cup Daily Information not available 09/05/2023 What Is The Highest Grade Or Level Of School You Have Completed Or The Highest Degree You Have Received? 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 878782086 D51.0 Abnormal t hyroid hormone 930974098 R94.6 Vitamin D deficiency 347 [address] E55.9 Syphilis 00404038 A53.9 26253 Krishna Jenkins MD [facility] [address] [place] [address] [place] [address] 10/24/2023 16:39:30 10/30/2023 15:36:01 Mild neurocognitive disorder 605351290 G31.84 Health Concerns Section Related Observation LastModified by Organization Detai ls LastModified Time None Recorded Concern Status LastModified by Organization Details LastModified Time None Recorded Advance Directives Directive None Recorded Payers Encounter Date Sequence Insurance Name Policy Number Policy Post Covered Member ID Post Member ID Guarantor Name 09/05/2023 1 [facility] [employer] CRITICAL [facility]ESS [facility] PLAN (MEDICAID HMO) JOSE Shabazz [id number] Wendy Shabazz 10/24/2023 1 [facility] [employer] CRITICAL ACCESS HOSP[facility] PLAN (MEDICAID HMO) JOSE Shabazz [id number] eWndy Shabazz Notes Date Note Type Note Provider [...] for her mother last week for a [employer] application. She had difficulty so that she needed to obtain guidance from an eldercare social studies department chair. She thinks an earlier time she would not have needed such guidance. As an example, in 2007 she applied for medical guardianship for her mother was of her mother's of schizophrenia. She went to court, filled out forms and appeared in court all on her own, without an associate attorney.She lives with her mother and her [...] is a possibility. Krishna Jenkins MD [address] [place] [address] [place], [address], [facility] 09/05/2023 14:45:37 10/24/2023 text/html Neurology follow [...] for her mother last week for a [employer] application. She had difficulty so that she needed to obtain guidance from an eldercare social studies department chair. She thinks an earlier time she would not have needed such guidance. As an example, in 2007 she applied for medical guardianship for her mother was of her mother's of schizophrenia. She went to court, filled out forms and appeared in court all on her own, without an associate attorney.She lives with her mother and her [...] is a possibility. Krishna Jenkins MD [address] [place] [address] [place], [address], [facility] 10/24/2023 18:29:29 OBGyn Episode No OBEpisode recorded.
--- OUTSIDE RECORDS SUMMARY | 2024-09-05 10:00 | XMS_ITS | Referral Summary ---
Author Organization [facility] Address [address] [place] [address] Care Team Providers Care Still Cleaner Name Role Phone Carrie Marshall Primary Care Provider [phone] Encounters Date Type Department Care Team Description 07/12/2024 3:14 PM EST - 07/12/2024 6:43 PM EST Emergency [facility] Emergency Department [address] [place] [address] Krishna Camacho MD Vasovagal near syncope (Primary [...] on file Procedures * Due to [place] state law, this organization might not be sharing negative HIV tests. Procedure Name Priority Date/Time Associated Diagnosis Comments BASIC METABOLIC PANEL STAT 07/12/2024 1:28 PM EST CBC AUTO DIFFERENTIAL STAT 07/12/2024 1:28 PM EST ECG 12-LEAD STAT 07/12/2024 1:13 PM EST HEART & VASCULAR - SCANNED 07/12/2024 from Last 3 Months Results * Due to [place] state law, this organization might not be [...] <0.01 <0.01 10*3/uL 07/12/2024 1:46 PM EST [facility] Blood Structure of peripheral vein / Unknown Venipuncture / Unknown 07/12/2024 1:28 PM EST 07/12/2024 1:38 PM EST us Krishna Camacho MD LAB BLOOD ORDERABLES Final Re sult [facility] [address] [place] [address], * (ABNORMAL) Basic Metabolic Panel (07/12/2024 1:28 PM EST) NA 143 135 - 145 mmol/L 07/12/2024 2:05 PM EST [facility] K 4.0 3.5 - 5.3 mmol/L 07/12/2024 2:05 PM EST [facility] Cl 109(H) 98 - 107 mmol/L 07/12/2024 2:05 PM EST [facility] CO2 23 22 - 32 mmol/L 07/12/2024 2:05 PM EST [facility] BUN 12 7 - 23 mg/dL 07/12/2024 2:05 PM EST [facility] Creatinine 0.84 0.50 - 1.20 mg/dL 07/12/2024 2:05 PM EST [facility] Glucose 99 65 - 99 mg/dL 07/12/2024 2:05 PM EST [facility] Calcium 9.8 8.6 - 10.5 mg/dL 07/12/2024 2:05 PM EST [facility] Anion Gap 11 5 - 15 07/12/2024 2:05 PM EST [facility] eGFR 83 >=60 mL/min/1. 73m2 07/12/2024 2:05 PM EST [facility] The[facility]Contin[facility] Education Records [facility] Resources[facility] Comment:The estimated glomer ular [...] ORDERABLES Final Re sult Performing Organization Address City/[facility]/ZIP Co de Phone Number [facility] [address] [place] [address], [place] * ECG 12 lead For Preop? No (07/12/2024 1:13 PM EST) Ventricular Rate EKG 88 BPM MUSE EKG Atrial Rate [address] Interval 134 ms MUSE EKG QRS Interval 76 ms MUSE EKG QT Interval 356 ms MUSE EKG QTC Interval 430 ms MUSE EKG P [place] 44 degrees MUSE EKG R [place] -13 degrees MUSE EKG T Wave [place] 45 degrees MUSE EKG 07/12/2024 1:13 PM EST 07/20/2024 7:15 AM EST Impressions MUSE EKG - 07/20/2024 7:15 AM EST NORMAL SINUS RHYTHM LOW VOLTAGE QRS POOR ' r ' WAVE PROGRESSION ABNORMAL ECG NO PREVIOUS ECGS AVAILABLE Confirmed by Booker Greer ([id number]) on 07/20/2024 7:15:07 AM us Krishna Camacho MD ECG ORDERABLES Final Result Performing Organization Address [facility] Co de Phone Number MUSE EKG * HEART & VASCULAR - SCANNED (07/12/2024) Anatomical Region Laterality Modality Other us Onbase Scan Rodriguez SCANNED PROCEDURES Final Resu lt from Last 3 Months Insurance [employer] Care Teams Still Cleaner Relationship Specialty Start Date End Date Carrie Marshall [address] [place] [address] [place] [address] PCP - General Internal Medicine 07/12/24
--- OUTSIDE RECORDS SUMMARY | 2024-09-05 10:00 | XMS_ITS | Clinical Summary ---
Author Organization [facility] Address [address] [place] [address] Care Team Providers Care Command And Control Officer Name Role Phone Carrie Marshall Primary Care Provider [phone] Allergies No known active allergies Encounters Date Type Department Care Team Description 07/12/2024 3:14 PM EST - 07/12/2024 6:43 PM EST Emergency [facility] Emergency Department [address] [place] [address] Krishna Camacho MD Vasovagal near syncope [...] 75+ series) 2045 Procedures * Due to [facility] law, this organization might not be sharing negative HIV tests. Procedure Name Priority Date/Time Associated Diagnosis Comments BASIC METABOLIC PANEL STAT 07/12/2024 1:28 PM EST CBC AUTO DIFFERENTIAL STAT 07/12/2024 1:28 PM EST ECG 12-LEAD STAT 07/12/2024 1:13 PM EST HEART & VASCULAR - SCANNED 07/12/2024 from Last 3 Months Results * Due to [place] [employer] law, this organization might not be sharing negative HIV tests. * CBC Auto Differential (07/12/2024 1:28 PM EST) WBC 6.5 3.8 - 10.8 10*3/uL 07/12/2024 1:46 PM EST [facility] RBC 4.36 3.80 - 5.10 10*6/uL 07/12/2024 1:46 PM EST [facility] Hemoglobin 12.2 11.7 - 15.5 g/dL 07/12/2024 1:46 PM EST [facility] Hematocrit 37.8 35.0 - [...] - 3.90 10*3/uL 07/12/2024 1:46 PM EST [facility] Monocyte # 0.40 0.20 - 0.95 10*3/uL 07/12/2024 1:46 PM EST [facility] Eosinophil # 0.10 0.02 - 0.50 10*3/uL 07/12/2024 1:46 PM EST [facility] Basophil # <0.03 0.00 - 0.20 10*3/uL 07/12/2024 1:46 PM EST [facility] nRBC % 0.0 /100 WBCs 07/12/2024 1:46 PM EST [facility] nRBC # <0.01 <0.01 10*3/uL 07/12/2024 1:46 PM EST [facility] Blood Structure of peripheral vein / Unknown Venipuncture / Unknown 07/12/2024 1:28 PM EST 07/12/2024 1:38 PM EST us Krishna Camacho MD LAB BLOOD ORDERABLES Final Re sult [facility] [address] [place] [address], * (ABNORMAL) Basic Metabolic Panel (07/12/2024 1:28 PM EST) NA 143 135 - 145 mmol/L 07/12/2024 2:05 PM EST [facility] K 4.0 3.5 - 5.3 mmol/L 07/12/2024 2:05 PM EST [facility] Cl 109(H) 98 - 107 mmol/L 07/12/2024 2:05 PM EST [facility] CO2 23 22 - 32 mmol/L 07/12/2024 2:05 PM EST [facility] BUN 12 7 - 23 mg/dL 07/12/2024 2:05 PM EST [facility] Creatinine 0.84 0.50 - 1.20 mg/dL 07/12/2024 2:05 PM EST [facility] Glucose 99 65 - 99 mg/dL 07/12/2024 2:05 PM EST [facility] Calcium 9.8 8.6 - 10.5 mg/dL 07/12/2024 2:05 PM EST [facility] Anion Gap 11 5 - 15 07/12/2024 2:05 PM EST [facility] eGFR 83 >=60 mL/min/1. 73m2 07/12/2024 2:05 PM EST [facility] Comment:The estimated glomer ular [...] MD LAB BLOOD ORDERABLES Final Re sult [facility] [address] [place] [address], * ECG 12 lead For Preop? No (07/12/2024 1:13 PM EST) Ventricular Rate EKG 88 BPM MUSE EKG Atrial Rate 88 BPM MUSE EKG DE Interval 134 ms MUSE EKG QRS Interval 76 ms MUSE EKG QT Interval 356 ms MUSE EKG QTC Interval 430 ms MUSE EKG P [place] 44 degrees MUSE EKG R [place] -13 degrees MUSE EKG T Wave [place] 45 degrees MUSE EKG 07/12/2024 1:13 PM EST 07/20/2024 7:15 AM EST Impressions MUSE EKG - 07/20/2024 7:15 AM EST NORMAL SINUS RHYTHM LOW VOLTAGE QRS POOR ' r ' WAVE PROGRESSION ABNORMAL ECG NO PREVIOUS ECGS AVAILABLE Confirmed by Booker Greer ([id number]) on 07/20/2024 7:15:07 AM us Krishna Camacho MD ECG ORDERABLES Final Result MUSE EKG * HEART & VASCULAR - SCANNED (07/12/2024) Anatomical Region Laterality Modality Other us Onbase Scan Rodriguez SCANNED PROCEDURES Final Resu lt from Last 3 Months Insurance [employer] Care Teams Command And Control Officer Relationship Specialty Start Date End Date Carrie Marshall [address] [place] [address] [place] [address] PCP - General Internal Medicine 07/12/24
== END 2024-09-05 09:55 | disposition home or self-care (01) ==
LOC: HO.HMCH 09:08
PROVIDERS: PCP Internal Medicine
DX: Z00.00 Encounter for general adult medical examination without abnormal findings (principal); I10 Essential (primary) hypertension; N30.10 Interstitial cystitis (chronic) without hematuria; E78.00 Pure hypercholesterolemia, unspecified; K21.9 Gastro-esophageal reflux disease without esophagitis; J45.20 Mild intermittent asthma, uncomplicated; K58.2 Mixed irritable bowel syndrome; F41.1 Generalized anxiety disorder; J02.9 Acute pharyngitis, unspecified; N64.4 Mastodynia

== ENCOUNTER 2024-10-07 16:11 | Outpatient (AMB) | payer OTHER, SELFPAY ==
--- OUTSIDE RECORDS SUMMARY | 2024-10-07 16:13 | XMS_ITS | Encounter Summary ---
Author Organization [facility] Address [address] [place] [address] [address] [place] [address] Care Team Providers Care Commutator Presser Name Role Phone Unavailable Primary Care Provider Unavailabl e Encounter Details Date Type Department Care Team (Latest Contact Info) Description 09/26/2018 Abstract [facility] CONVERSIONS Dental, Provider, DDS Social History Tobacco [...] Description 10/10/2024 3:00 PM EDT Office Visit [facility] [address] [place] [address] Viviana Prado documented as of this encounter Visit Diagnoses Not on filedocumented in this encounter
--- OUTSIDE RECORDS SUMMARY | 2024-10-07 16:13 | XMS_ITS | Encounter Summary ---
Author Organization [employer] [facility] Address [address] [place] [address] [address] [place] [address] Care Team Providers Care Jewelsmith Name Role Phone Unavailable Primary Care Provider Unavailabl e Encounter Details Date Type Department Care Team (Latest Contact Info) Description 05/05/2021 Abstract [facility] CONVERSIONS Dental, Provider, DDS Social History [...] Description 10/10/2024 3:00 PM EDT Office Visit [facility] [address] [place] [address] Viviana Prado documented as of this encounter Visit Diagnoses Not on filedocumented in this encounter
--- OUTSIDE RECORDS SUMMARY | 2024-10-07 16:14 | XMS_ITS | Clinical Summary ---
Author Organization [employer] [facility] Address [address] [facility] 7 [place] [address] Care Team Providers Care Methods Analyst Data Processing Name Role Phone Unavailable Primary Care Provider [...] Diskus 250-50 MCG/ACT aerosol powder 3 Active HYDROcodone-farbice taminophen ([place]) 5-325 MG tablet TAKE ONE TABLET BY [...] Localized gingival recession 05/11/2023 Dental plaque 05/11/2023 Social History Tobacco Use Types Packs/Day Years [...] Description 10/10/2024 3:00 PM EDT Office Visit [facility] [address] [place] [address] Viviana Prado Health Maintenance Due Date Last [...] patient's age to complete this topic Meningococcal B Vaccine Aged Out No l onger eligible based on patient's age to complete [...] Procedure Name Priority Date/Time Associated Diagnosis Comments PROPHYLAXIS - ADULT Routine 05/06/2024 3 :00 PM EST Dental calculus Dental plaque BITEWINGS - 4 RADIOGRAPHIC IMAGES Routine 12/22/2023 2:00 PM EDT PERIODIC ORAL EVALUATION - ESTABLISHED PATIENT Routine 12/22/2023 2:00 PM EDT INTRAORAL - COMPLETE SERIES OF RADIOGRAPHIC IMAGES Routine 04/21/2021 12:00 AM EST from Last 3 Months or Most Recently Relevant to Health Maintenance Insurance [facility] MED[facility] STAND ADULT
--- OUTSIDE RECORDS SUMMARY | 2024-10-07 16:14 | XMS_ITS | Referral Summary ---
Author Organization [facility] Address [address] [place] [address] Care Team Providers Care Staff Nuclear Medicine Technologist Name Role Phone Carrie Marshall Primary Care Provider [phone] Encounters Date Type Department Care Team Description 07/12/2024 3:14 PM EST - 07/12/2024 6:43 PM EST Emergency [facility] Emergency Department [address] [place] [address] Krishna Camacho MD Vasovagal near syncope (Primary [...] Not on file Procedures * Due to [place] state law, this organization might not be sharing negative HIV tests. Procedure Name Priority Date/Time Associated Diagnosis Comments BASIC METABOLIC PANEL STAT 07/12/2024 1:28 PM EST CBC AUTO DIFFERENTIAL STAT 07/12/2024 1:28 PM EST ECG 12-LEAD STAT 07/12/2024 1:13 PM EST HEART & VASCULAR - SCANNED 07/12/2024 from Last 3 Months Results * Due to [place] state law, this organization might not be [...] <0.01 <0.01 10*3/uL 07/12/2024 1:46 PM EST [facility] Blood Structure of peripheral vein / Unknown Venipuncture / Unknown 07/12/2024 1:28 PM EST 07/12/2024 1:38 PM EST us Krishna Camacho MD LAB BLOOD ORDERABLES Final Re sult [facility] [address] [place] [address], * (ABNORMAL) Basic Metabolic Panel (07/12/2024 1:28 PM EST) NA 143 135 - 145 mmol/L 07/12/2024 2:05 PM EST [facility] K 4.0 3.5 - 5.3 mmol/L 07/12/2024 2:05 PM EST [facility] Cl 109(H) 98 - 107 mmol/L 07/12/2024 2:05 PM EST [facility] CO2 23 22 - 32 mmol/L 07/12/2024 2:05 PM EST [facility] BUN 12 7 - 23 mg/dL 07/12/2024 2:05 PM EST [facility] Creatinine 0.84 0.50 - 1.20 mg/dL 07/12/2024 2:05 PM EST [facility] Glucose 99 65 - 99 mg/dL 07/12/2024 2:05 PM EST [facility] Calcium 9.8 8.6 - 10.5 mg/dL 07/12/2024 2:05 PM EST [facility] Anion Gap 11 5 - 15 07/12/2024 2:05 PM EST [facility] eGFR 83 >=60 mL/min/1. 73m2 07/12/2024 2:05 PM EST [facility] Comment:The estimated glomer ular [...] ORDERABLES Final Re sult Performing Organization Address City/[facility]/ZIP Co de Phone Number [facility] [address] [place] [address], [place] * ECG 12 lead For Preop? No (07/12/2024 1:13 PM EST) Ventricular Rate EKG 88 BPM MUSE EKG Atrial Rate 88 BPM MUSE EKG [place] Interval 134 ms MUSE EKG QRS Interval 76 ms MUSE EKG QT Interval 356 ms MUSE EKG QTC Interval 430 ms MUSE EKG P Foley 44 degrees MUSE EKG R Foley -13 degrees MUSE EKG T Wave Foley 45 degrees MUSE EKG 07/12/2024 1:13 PM EST 07/20/2024 7:15 AM EST Impressions MUSE EKG - 07/20/2024 7:15 AM EST NORMAL SINUS RHYTHM LOW VOLTAGE QRS POOR ' r ' WAVE PROGRESSION ABNORMAL ECG NO PREVIOUS ECGS AVAILABLE Confirmed by Booker Greer ([id number]) on 07/20/2024 7:15:07 AM us Krishna Camacho MD ECG ORDERABLES Final Result Performing Organization Address [facility] Co de Phone Number MUSE EKG * HEART & VASCULAR - SCANNED (07/12/2024) Anatomical Region Laterality Modality Other us Onbase Scan Rodriguez SCANNED PROCEDURES Final Resu lt from Last 3 Months Insurance [employer] Care Teams Staff Nuclear Medicine Technologist Relationship Specialty Start Date End Date Carrie Marshall [address] [place] [address] [place] [address] PCP - General Internal Medicine 07/12/24
--- OUTSIDE RECORDS SUMMARY | 2024-10-07 16:14 | XMS_ITS | Data Portability ---
Author Organization [facility] [employer] Address [address] [place] [address] [place] [address] Care Team Providers Care Counselor Manager Name Role Phone WILBER DACOSTA Referring Provider [...] have clinical sites close to this area, [place] or close by major centers such as [place] or [facility]. She understood and took some notes. I [...] None recorded. Lab vitamin B12, serum 024 [facility], [address] [place] [address], [place], [address], 4 11:16:50 folate, serum 024 [facility] 1 [facility], [address] [facility], [place], [address], 4 15:38:59 mma (methylma lonic acid), serum 024 [facility], [address] [place] [address], [address], 4 11:19:07 homocyste ine, serum or plasma 024 [facility], [address] [place] [address], [address], 4 11:19:12 TSH, serum or plasma - E07.9 024 [facility] [address] [place] [address] Laboratory, [address] [place] [address], [address], 4 15:39:00 T4, free, serum - E07.[address] [facility], [address] [place] [address], [address], 4 15:39:00 vitamin D, 25-hydrox y, total, serum - E55.9 024 [facility] [facility], [address] [place] [address], [address], 4 15:38:59 RPR (rapid plasma reagin), serum - A53.9 024 [facility] [facility], [address] [place] [address], [address], 4 15:39:00 Referral None recorded. Procedures None recorded. Surgeries None recorded. Imaging None recorded. Medication Orders None recorded. Patient TargetsNo targets recorded. Patient Instructions Encounter Date Encounter Id Patient Instructions Last Modified By Organization Details Last Modified Time 09/05/2023 [id number] Discussion acros s issues of diagnoses and management and same day associated chart review and management greater than 50% greater than 60 minutes mrossen Not available 09/05/2023 14:45:21 10/24/2023 [id number] Discussion acros s issues of diagnoses and [...] Not available 09/05/2023 [id number] RxNorm Veena Cisneros [facility] 13:09:32 Medications Name Sig Start Date [...] Updated DateTime 09/05/2023 165.1 cm 25 kg/m2 73725.86 g 12 /min Veena Cisneros [facility] Neurology [facility] 09/05/2023 13:09:20 Social History Question Answer Notes LastModified by [employer] Details LastModified Time Tobacco Smoking Status Never Smoker Veena guillen [facility] Neurology [facility] 09/05/2023 13:11:52 What Is Your Level Of Caffeine Consumption? Moderate 1 Cup Daily Information not available 09/05/2023 What Is The Highest Grade Or Level Of School You Have Completed Or The Highest Degree You Have Received? [id number] Information not available 09/05/2023 Which Of Your Hands Is Dominant? Right Information not available 09/05/2023 Sex: Unknown Functional Status Question Answer Note LastModified by Organizat ion Details LastModified Time What is your level of alcohol consumption? Occasional Information not available 09/05/2023 Mental Status None recorded. Family History Relationship [...] Medical History Condition Response Head Trauma/Injury N Lung Disease N Depression Y COPD or emphysema N Spine Problems N Obstructive Sleep Apnea N Alcoholism N Autoimmune disease N Arthritis N Developmental Problems N Cancer N Stroke N Heartburn, acid reflux, GERD Y Vitamin D Deficiency N Liver Disease N Headaches Y Fibromyalgia N Kidney Disease N Claustrophobia N Hospitalizations N High Blood Pressure or Hypertension Y Thyroid Problems N Brain Tumors N Encephalitis N Vitamin B12 deficiency N PTSD N Heart Attack (AL) N Diabetes N Bleeding Disorder N Tuberculosis N Cerebral Palsy N Neck Problems N Back Problems N Asthma Y Epilepsy/Seizures N Bipolar Disorder N Sleep Disorder N Hepatitis N Aneurysm N Heart Disease N Osteoporosis N High Cholesterol or Hyperlipidemia N Gynecological HistoryNo gynecological history recorded. 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 635205524 D51.0 Abnormal t hyroid hormone 305135808 R94.6 Vitamin D deficiency 347 01781 E55.9 Syphilis 76823236 A53.9 [id number] Krishna Jenkins MD [facility] [address] [place] [address] [place] [id number] 10/24/2023 16:39:30 10/30/2023 15:36:01 Mild neurocognitive disorder 250874891 G31.84 Health Concerns Section Related Observation LastModified by Organization Detai ls LastModified Time None Recorded Concern Status LastModified by Organization Details LastModified Time None Recorded Advance Directives Directive None Recorded Payers Encounter Date Sequence Insurance Name Policy Number Policy Post Covered Member ID Post Member ID Guarantor Name 09/05/2023 1 [facility] (MEDICAID HMO) JOSE Shabazz [id number] Wendy Shabazz 10/24/2023 1 [facility] (MEDICAID HMO) JOSE Shabazz [id number] Wendy Shabazz Notes Date Note Type Note [...] for her mother last week for a imagine application. She had difficulty so that she needed to obtain guidance from an eldercare manager social work. She thinks an earlier time she would not have needed such guidance. As an example, in 2007 she applied for medical guardianship for her mother was of her mother's of schizophrenia. She went to court, filled out forms and appeared in court all on her own, without an skydiving instructor.She lives with her mother and her 10-year-old [...] this is a possibility. Krishna Jenkins MD [address] [place] [address], [phone], [facility] Neurology [facility] 09/05/2023 14:45:37 10/24/2023 text/html Neurology follow [...] for her mother last week for a imagine application. She had difficulty so that she needed to obtain guidance from an eldercare manager social work. She thinks an earlier time she would not have needed such guidance. As an example, in 2007 she applied for medical guardianship for her mother was of her mother's of schizophrenia. She went to court, filled out forms and appeared in court all on her own, without an skydiving instructor.She lives with her mother and her 10-year-old [...] this is a possibility. Krishna Jenkins MD [address] [place] [address] [place], [address], [facility] Neurology [facility] 10/24/2023 18:29:29 OBGyn Episode No OBEpisode recorded.
--- OUTSIDE RECORDS SUMMARY | 2024-10-07 16:14 | XMS_ITS | Clinical Summary ---
Author Organization [facility] Address [address] [place] [address] Care Team Providers Care Parachute Marker Name Role Phone Carrie Marshall Primary Care Provider [phone] Allergies No known active allergies Encounters Date Type Department Care Team Description 07/12/2024 3:14 PM EST - 07/12/2024 6:43 PM EST Emergency [facility] Emergency Department [address] [place] [address] Krishna Camacho MD Vasovagal near syncope [...] 75+ series) 2045 Procedures * Due to [facility] law, this organization might not be sharing negative HIV tests. Procedure Name Priority Date/Time Associated Diagnosis Comments BASIC METABOLIC PANEL STAT 07/12/2024 1:28 PM EST CBC AUTO DIFFERENTIAL STAT 07/12/2024 1:28 PM EST ECG 12-LEAD STAT 07/12/2024 1:13 PM EST HEART & VASCULAR - SCANNED 07/12/2024 from Last 3 Months Results * Due to [place] law, this organization might not be sharing negative HIV tests. * CBC Auto Differential (07/12/2024 1:28 PM EST) WBC 6.5 3.8 - 10.8 10*3/uL 07/12/2024 1:46 PM EST [facility] RBC 4.36 3.80 - 5.10 10*6/uL 07/12/2024 1:46 PM EST [facility] Hemoglobin 12.2 11.7 - 15.5 g/dL 07/12/2024 1:46 PM EST [facility] Hematocrit 37.8 35.0 - [...] - 3.90 10*3/uL 07/12/2024 1:46 PM EST [facility] Monocyte # 0.40 0.20 - 0.95 10*3/uL 07/12/2024 1:46 PM EST [facility] Eosinophil # 0.10 0.02 - 0.50 10*3/uL 07/12/2024 1:46 PM EST [facility] Basophil # <0.03 0.00 - 0.20 10*3/uL 07/12/2024 1:46 PM EST [facility] nRBC % 0.0 /100 WBCs 07/12/2024 1:46 PM EST [facility] nRBC # <0.01 <0.01 10*3/uL 07/12/2024 1:46 PM EST [facility] Blood Structure of peripheral vein / Unknown Venipuncture / Unknown 07/12/2024 1:28 PM EST 07/12/2024 1:38 PM EST us Krishna Camacho MD LAB BLOOD ORDERABLES Final Re sult [facility] [address] [place] [address], * (ABNORMAL) Basic Metabolic Panel (07/12/2024 1:28 PM EST) NA 143 135 - 145 mmol/L 07/12/2024 2:05 PM EST [facility] K 4.0 3.5 - 5.3 mmol/L 07/12/2024 2:05 PM EST [facility] Cl 109(H) 98 - 107 mmol/L 07/12/2024 2:05 PM EST [facility] CO2 23 22 - 32 mmol/L 07/12/2024 2:05 PM EST [facility] BUN 12 7 - 23 mg/dL 07/12/2024 2:05 PM EST [facility] Creatinine 0.84 0.50 - 1.20 mg/dL 07/12/2024 2:05 PM EST [facility] Glucose 99 65 - 99 mg/dL 07/12/2024 2:05 PM EST [facility] Calcium 9.8 8.6 - 10.5 mg/dL 07/12/2024 2:05 PM EST [facility] Anion Gap 11 5 - 15 07/12/2024 2:05 PM EST [facility] eGFR 83 >=60 mL/min/1. 73m2 07/12/2024 2:05 PM EST [facility] Comment:The estimated glomer ular [...] MD LAB BLOOD ORDERABLES Final Re sult [facility] [address] [place] [address], * ECG 12 lead For Preop? No (07/12/2024 1:13 PM EST) Ventricular Rate EKG 88 BPM MUSE EKG Atrial Rate 88 BPM MUSE EKG [place] Interval 134 ms MUSE EKG QRS Interval 76 ms MUSE EKG QT Interval 356 ms MUSE EKG QTC Interval 430 ms MUSE EKG P [place] 44 degrees MUSE EKG R [place] -13 degrees MUSE EKG T Wave [place] 45 degrees MUSE EKG 07/12/2024 1:13 PM EST 07/20/2024 7:15 AM EST Impressions MUSE EKG - 07/20/2024 7:15 AM EST NORMAL SINUS RHYTHM LOW VOLTAGE QRS POOR ' r ' WAVE PROGRESSION ABNORMAL ECG NO PREVIOUS ECGS AVAILABLE Confirmed by Booker Greer ([id number]) on 07/20/2024 7:15:07 AM us Krishna Camacho MD ECG ORDERABLES Final Result MUSE EKG * HEART & VASCULAR - SCANNED (07/12/2024) Anatomical Region Laterality Modality Other us Onbase Scan Rodriguez SCANNED PROCEDURES Final Resu lt from Last 3 Months Insurance [employer] Care Teams Parachute Marker Relationship Specialty Start Date End Date Carrie Marshall [address] [place] [address] [place] [address] PCP - General Internal Medicine 07/12/24
--- NOTE | 2024-10-07 16:28 | MHC.OFFVIS ---
Intake Visit Reasons: 4m/IC Intake Note: Patient is present for 4m IC follow up Urology Meds:Pyridium Antibiotic Allergies: none Blood Thinners: none Senior Medical Writer Required: No Accompanied by: Child Allergies animal dander [ANIMAL HAIR] Allergy (Intermediate, Verified 10/07/24 16:29) ASTHMA, HIVES lactose [Lactose] Allergy (Mild, Verified 10/07/24 16:29) DIARRHEA HPI Comments Details: 10/07/24-- 07/18/24--Wendy she is 54-year-old female who is followed for chronic interstitial cystitis, she is currently on gabapentin and Uribel. The patient is a 54-year-old female presenting with chronic interstitial cystitis management. The patient has experienced chronic symptoms associated with interstitial cystitis and has been under management with Gabapentin. The cessation of Elmiron is particularly notable due to potential early retinal involvement, preventing further exacerbation. She also uses Pyridium and Urabelle selectively for flare management. Recent exacerbations have been linked primarily to increased personal stress, notably concerning her mother's health complications including possible endometrial cancer and advancing dementia, causing increased anxiety and contributing to the patient's overall symptomatology. She has experienced past success with symptom resolution following environmental and situational stress reduction, with her current medication approach serving to support daily function. - Recent urinalysis: absence of hematuria, presence of leukocytes warranting culture for potential UTI exclusion. 12/07/23--Telehealth FU-Wendy is being followed for interstitial cystitis. Comorbidity cervical and lumbar radiculopathy. She is tapered off of the Elmiron. She is managed with cystoscopy hydrodistention as needed. She watches her diet. And she is aware of her IC stressors. She complains that her pain symptoms have been worsening off of the Elmiron. Discussed restarting elmiron and will also add gabapentin. 10/20/23--eWndy is being followed for interstitial cystitis. Comorbidity cervical and lumbar radiculopathy. She is tapered off of the Elmiron. She is managed with cystoscopy hydrodistention as needed. Last cystoscopy hydrodistention was on 08/08/2023--she watches her diet. 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 She states that she is going through flare. I have discussed using NSAIDs and Pyridium p.r.n.. Motrin 800 mg every 12 hours p.r.n. sent to the pharmacy. The patient is on a pain management regimen for her radiculopathy condition. 08/31/2023--Wendy is being followed for interstitial cystitis. She is status post repeat cystoscopy hydrodistention on 08/08/2023--cystoscopy findings bladder capacity post post distention 900 mL no glomerulations observed. The patient states that she has been doing better since the cystoscopy. She is aware that she has stress-induced IC flare ups. 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 She is planning to have her moved to an assisted living facility which she feels will be beneficial to her mother and take some of the stress away. She denies dysuria. She denies gross hematuria or urinary incontinence. Urinalysis: Urinalysis negative blood negative. Plan follow-up in 6 months. 07/26/2023-- Wendy is a 53-year-old female who presents today to the office for a follow-up. mother with alzheimers stress exacerbates IC symptoms, urge. She has been doing the bladder instillations with the nursing staff. using Prelief with coffee. 2 tabs. Discussed repeat cysto/hydro. 03/27/23-- Wendy is a 53-year-old female who was diagnosed with IC in 2015 and was started on Elmiron. The patient is currently on 200 mg twice a day. Co-morbidity: cervical spine condition and status post fusion of C3 and C4 in November 2016 and disc replacement between C5 and C6 in March 2019. She is has chronic pain and is prescribed Vicodin by pain management. She presents to the office for 1-month interstitial cystitis follow-up. She is still using the Elmiron 200 mg BID. I discussed tapering off the elmiron due to reported side effects with halfway use. She states when she tried lowering the elmiron use, she had bladder pain. I prescribed hydroxyzine and she states when she increased dose from 25 to 50 mg she had numbness. She states that she has seen Dr. Myles, ophthalmology and was told that there was no retinal damage. States following IC diet. One coffee in the morning during the week. Does not consume tomatoes or citrus foods. Consumes alcohol once a week and mentions occasional worsening of bladder pain due to alcohol. she is using prelief prn, when she consumes pizza, pasta, or alcohol. Evaluation today UA: Blood: negative, leukocytes: negative. Discontinue Elmiron. Ordered liver function testing. Will start bladder instillations with heparin, lidocaine, and solumedrol with nursing staff, daily for 5 days, then bi weekly x 2, then weekly x 8 then reevaluate. FU with me in 3 months. FORMERLY [facility], [facility] Medical History Pneumonia due to COVID-19 virus Hospital discharge follow-up Chronic pain of left ankle IBS (irritable bowel syndrome) Anxiety Depression Asthma Hx of flexible sigmoidoscopy COVID-19 vaccine series completed History of COVID-19 Dental abscess Dental infection Sinusitis, maxillary, chronic Acute sinusitis Diarrhea Cervical radiculopathy ASCUS (atypical squamous cells of undetermined significance) on gynecologic Papanicolaou smear complicating , antepartum Lumbar degenerative disc disease GERD (gastroesophageal reflux disease) Hypercholesterolemia Insomnia Hypertension Interstitial cystitis Degenerative disc disease, cervical Surgical History History of foot surgery Hx of cystoscopy History of surgery History of neck surgery S/P cervical discectomy H/O nasal septoplasty History of ankle surgery Status post laparoscopic surgery History of wisdom tooth extraction Family History Father PTSD (post-traumatic stress disorder) Mental health disorder Mother No problems noted. Maternal Grandmother Breast cancer Maternal Grandfather Myocardial infarction Maternal Uncle Past heart attack Skin cancer Myocardial infarction Other Substance use disorder Social History Housing: House Alcohol intake: current Comment: once a week 2 drinks Patient Tobacco Use Status: Never used Tobacco Years Smoked: quit 2009, CBD, vaping e-Cigarette/Vaping Use: Never Used Second Hand Smoke Exposure: No service: No Current occupational status: unemployed Cognitive needs: No Hearing needs: No Vision needs: Yes Assessment & Plan Assessment & Plan (1) Interstitial cystitis: Code(s): N30.10 - Interstitial cystitis (chronic) without hematuria Category: Medical (2) Pelvic pain: Code(s): R10.2 - Pelvic and perineal pain Category: Medical (3) Bladder pain: Code(s): R39.89 - Other symptoms and signs involving the genitourinary system Category: Medical Plan - Continue Gabapentin and Uribel as prescribed. - Use Pyridium during symptom flare-ups as needed. - Stay hydrated to help manage symptoms. - Avoid Elmiron due to potential retinal complications. - Practice stress-reducing techniques to assist symptom management. - Coordinate with railroad commissioner for retinal evaluation and reevaluate any new treatment options with the psychiatric and managing care providers. - Follow up in four months to reassess treatment efficacy and symptom management. Orders: Orders AMB Urinalysis Automated 10/07/24 Z13.9 - Encounter for screening, unspecified Medications: New fluconazole repeat dose in 3 days 150 mg PO ONCE 2 tabs 0RF Scribe Plan - Not visible on output: Patient was informed and verbally consented to the use of an ambient scribe for clinic note documentation during this visit. Coding Diagnoses Interstitial cystitis N30.10 Pelvic pain R10.2 Bladder pain R39.89
== END 2024-10-07 17:06 | disposition home or self-care (01) ==
PROVIDERS: Visit Provider Urology
DX: Z13.9 Encounter for screening, unspecified (principal)

== ENCOUNTER → 2024-10-07 16:11 | Outpatient (BNVA) | payer OTHER, SELFPAY | PROVIDERS: Visit Provider Urology | DX: N30.10 Interstitial cystitis (chronic) without hematuria (principal); R10.2 Pelvic and perineal pain; R39.89 Other symptoms and signs involving the genitourinary system | CPT/HCPCS: 81003; 99212 ==

== ENCOUNTER → 2024-10-10 12:30 | Outpatient (BNV) | payer OTHER, SELFPAY | PROVIDERS: Visit Provider Internal Medicine | DX: N64.4 Mastodynia (principal) | CPT/HCPCS: 76642; 77061; 77065 ==

== ENCOUNTER 2024-10-10 12:33 | Outpatient (REF) | payer OTHER, SELFPAY ==
--- NOTE | ~2024-10-10 | US_ITS ---
EXAMINATION: MM DIAGNOSTIC DIGITAL BREAST TOMOSYNTHESIS, RIGHT Limited right breast ultrasound. CLINICAL INFORMATION: Right breast pain upper outer breast low axillary region. COMPARISON: Mammography: [facility] on PACS. TECHNIQUE: Digital breast tomosynthesis is performed in both the craniocaudal and mediolateral oblique views along with computer-aided detection (CAD). Synthesized 2D images are generated from the tomosynthesis. FINDINGS: There are scattered areas of fibroglandular density (ACR BI-RADS breast composition Category b). [place] marker in the low axilla upper outer breast without underlying abnormality at the site of patient's pain. There are no significant masses, abnormal calcifications, or other abnormalities. Targeted color Doppler ultrasound scanning in the area the patient's pain scanning in the right breast from 7-12 o'clock demonstrates normal fibroglandular breast tissue. There is no sonographic abnormal findings. US/US breast RT limited mamm only IMPRESSION: No mammographic or sonographic abnormal finding to account for the patients right breast pain. Recommend clinical evaluation and followup. ASSESSMENT: BI-RADS BI-RADS 1 - Negative RECOMMENDATION: 1 year F/U Results were provided to the patient at time of visit by the technologist. This patient's information was entered into a reminder system with a target due date for their next mammogram. Electronically signed by: Beverly Lowery DO 10/10/2024 01:49 PM EDT
--- OUTSIDE RECORDS SUMMARY | 2024-10-10 12:37 | XMS_ITS | Encounter Summary ---
Author Organization [employer] [facility] Address [address] [place] [address] [address] [place] [address] Care Team Providers Care Loading Unit Operator Powder Charging Name Role Phone Unavailable Primary Care Provider Unavailabl e Encounter Details Date Type Department Care Team (Latest Contact Info) Description 05/05/2021 Abstract [facility] CONVERSIONS Dental, Provider, DDS Social [...] Description 10/10/2024 3:00 PM EDT Office Visit [facility] ADULT DENTAL [address] [place] [address] Viviana Prado documented as of this encounter Visit Diagnoses Not on filedocumented in this encounter
--- OUTSIDE RECORDS SUMMARY | 2024-10-10 12:37 | XMS_ITS | Clinical Summary ---
Author Organization [employer] [facility] Address [address] [facility] 7 [place] [address] Care Team Providers Care Munitions Worker Name Role Phone Unavailable Primary Care Provider [...] MCG/ACT aerosol powder 3 Active HYDROcodone-fabrice taminophen ([place]) 5-325 MG tablet TAKE ONE TABLET BY [...] Visit [facility] ADULT D[facility] [address] [place] [address] Viviana Prado Health Maintenance Due Date Last [...] Health Maintenance Insurance D[facility] MEDICAID STAND ADULT
--- OUTSIDE RECORDS SUMMARY | 2024-10-10 12:37 | XMS_ITS | Referral Summary ---
Author Organization [facility] Address [address] [place] [address] Care Team Providers Care Child Protection Specialist Name Role Phone Carrie Marshall Primary Care Provider [phone] Allergies No known active allergies Social History [...] on file Procedures * Due to [place] [employer] law, this organization might not be sharing negative HIV tests. Procedure Name Priority Date/Time Associated Diagnosis Comments BASIC METABOLIC PANEL STAT 07/12/2024 1:28 PM EST from Last 3 Months or Most Recently Relevant to Health Maintenance Results * Due to [place] [employer] law, this organization might not be sharing negative HIV tests. * (ABNORMAL) Basic Metabolic Panel (07/12/2024 1:28 PM EST) NA 143 135 - 145 mmol/L 07/12/2024 2:05 PM EST [facility] K 4.0 3.5 - 5.3 mmol/L 07/12/2024 2:05 PM EST [facility] Cl 109(H) 98 - 107 mmol/L 07/12/2024 2:05 PM EST [facility] CO2 23 22 - 32 mmol/L 07/12/2024 2:05 PM EST [facility] BUN 12 7 - 23 mg/dL 07/12/2024 2:05 PM EST [facility] Creatinine 0.84 0.50 - 1.20 mg/dL 07/12/2024 2:05 PM EST [facility] Glucose 99 65 - 99 mg/dL 07/12/2024 2:05 PM EST [facility] Calcium 9.8 8.6 - 10.5 mg/dL 07/12/2024 2:05 PM EST [facility] Anion Gap 11 5 - 15 07/12/2024 2:05 PM EST [facility] eGFR 83 >=60 mL/min/1. 73m2 07/12/2024 2:05 PM EST [facility] Comment:The estimated glomer ular [...] BLOOD ORDERABLES Final Re sult [facility] [address] [place] [address], from Last 3 Months or Most Recently Relevant to Health Maintenance Insurance [employer] Care Teams Child Protection Specialist Relationship Specialty Start Date End Date Carrie Marshall [address] [place] [address] [place] [address] PCP - General Internal Medicine 07/12/24
--- OUTSIDE RECORDS SUMMARY | 2024-10-10 12:37 | XMS_ITS | Encounter Summary ---
Author Organization [employer] [facility] Address [address] [place] [address] [address] [place] [address] Care Team Providers Care Poultry Vaccinator Name Role Phone Unavailable Primary Care Provider Unavailabl e Encounter Details Date Type Department Care Team (Latest Contact Info) Description 09/26/[address] [facility] CONVERSIONS Dental, Provider, DDS Social History [...] 10/10/2024 3:00 PM EDT Office Visit [facility] ADULT DENTAL [address] [place] [address] Viviana Prado documented as of this encounter Visit Diagnoses Not on filedocumented in this encounter
--- OUTSIDE RECORDS SUMMARY | 2024-10-10 12:37 | XMS_ITS | Clinical Summary ---
Author Organization [facility] Address [address] [place] [address] Care Team Providers Care Boatswains Mate Name Role Phone Carrie Marshall Primary Care Provider [phone] Allergies No known active allergies Social History [...] Vaccines (1 of 2) 02/03/2020 COVID-19 Vaccine ( season) 2024 Alcohol/Substance Use Screening 05/22/2024 Depression Screening and Follow-Up 05/22/2024 Social Drivers of Health Annual Screening 05/22/2024 Influenza Vaccine (Season Ended) 2025 Basic Metabolic Panel 07/12/2025 07/12/2024 RSV Vaccine (60+ years old a nd patients) (1 - 1-dose 75+ series) 2045 Procedures * Due to [place] [employer] law, this organization might not be sharing negative HIV tests. Procedure Name Priority Date/Time Associated Diagnosis Comments BASIC METABOLIC PANEL STAT 07/12/2024 1:28 PM EST from Last 3 Months or Most Recently Relevant to Health Maintenance Results * Due to [place] [employer] law, this organization might not be sharing negative HIV tests. * (ABNORMAL) Basic Metabolic Panel (07/12/2024 1:28 PM EST) NA 143 135 - 145 mmol/L 07/12/2024 2:05 PM EST [facility] K 4.0 3.5 - 5.3 mmol/L 07/12/2024 2:05 PM EST [facility] Cl 109(H) 98 - 107 mmol/L 07/12/2024 2:05 PM EST [facility] CO2 23 22 - 32 mmol/L 07/12/2024 2:05 PM EST [facility] BUN 12 7 - 23 mg/dL 07/12/2024 2:05 PM EST [facility] Creatinine 0.84 0.50 - 1.20 mg/dL 07/12/2024 2:05 PM EST [facility] Glucose 99 65 - 99 mg/dL 07/12/2024 2:05 PM EST [facility] Calcium 9.8 8.6 - 10.5 mg/dL 07/12/2024 2:05 PM EST [facility] Anion Gap 11 5 - 15 07/12/2024 2:05 PM EST [facility] eGFR 83 >=60 mL/min/1. 73m2 07/12/2024 2:05 PM EST [facility] Comment:The estimated glomer ular [...] MD LAB BLOOD ORDERABLES Final Re sult [facility] [address] [place] [address], from Last 3 Months or Most Recently Relevant to Health Maintenance Insurance [employer] Care Teams Boatswains Mate Relationship Specialty Start Date End Date Carrie Marshall [address] [place] [address] [place] [address] PCP - General Internal Medicine 07/12/24
== END 2024-10-10 12:34 | disposition home or self-care (01) ==
LOC: HO.MAMMO 12:33
DX: N64.4 Mastodynia (principal)
CPT/HCPCS: 76642; 77061; 77065

== ENCOUNTER 2024-11-11 11:47 | Outpatient (AMB) | payer OTHER, SELFPAY ==
[2024-11-11 11:55] VITALS: BMI 25.4
--- NOTE | 2024-11-11 11:55 | A.OFFVIS_ITS ---
VS Expanded 11/11/24 11:55 11/21/24 10:54 Height 5 ft 5 in 5 ft 5 in Weight 152 lb 12.485 oz 153 lb BMI 25.4 25.5 Intake Visit Reasons: Pure hypercholesterolemia, unspecified Allergies animal dander (ANIMAL HAIR) Allergy (Intermediate, Verified 11/12/24 08:24) ASTHMA, HIVES lactose (Lactose) Allergy (Mild, Verified 11/12/24 08:24) DIARRHEA Nutrition Presentation Details: Pt presents for MNT for hypercholesterolemia Typical meal DD: vivas eggs/cheese sand, hashbrown, coffee 1/d L: tuna with oil sour cream and chips Snack small fruit D: varies:starch/protein/veg snacks some dessert food frequency fruit: 0-1/d ve/d dairy: 3+(lactose free ) fish: 0-1/wk Physical activity:ADL etoh/smoking== [facility] Equation Height: 5 ft 5 in Weight: 153 lb Resting Metabolic Rate: 1298.50 Calculated Activity Level: Sedentary Calories Needed to Maintain Weight: 1558.20 Diagnosis Nutrition problem #1: food nutri know defi As related to (etiology) #1: diagnosis (hypercholesterolemia) As evidenced by (sign/symptom) #1: knowledge deficit of diet PFSH Medical History Lumbar stenosis Pneumonia due to COVID-19 virus Hospital discharge follow-up Chronic pain of left ankle IBS (irritable bowel syndrome) Anxiety Depression Asthma Hx of flexible sigmoidoscopy COVID-19 vaccine series completed History of COVID-19 Dental abscess Dental infection Sinusitis, maxillary, chronic Acute sinusitis Diarrhea Cervical radiculopathy ASCUS (atypical squamous cells of undetermined significance) on gynecologic Papanicolaou smear complicating , antepartum Lumbar degenerative disc disease GERD (gastroesophageal reflux disease) Hypercholesterolemia Insomnia Hypertension Interstitial cystitis Degenerative disc disease, cervical Surgical History History of foot surgery Hx of cystoscopy History of surgery History of neck surgery S/P cervical discectomy H/O nasal septoplasty History of ankle surgery Status post laparoscopic surgery History of wisdom tooth extraction Family History Father PTSD (post-traumatic stress disorder) Mental health disorder Mother No problems noted. Maternal Grandmother Breast cancer Maternal Grandfather Myocardial infarction Maternal Uncle Past heart attack Skin cancer Myocardial infarction Other Substance use disorder Social History Housing: House Alcohol intake: current Comment: once a week 2 drinks Patient Tobacco Use Status: Never used Tobacco Years Smoked: quit 2009, CBD, vaping e-Cigarette/Vaping Use: Never Used Second Hand Smoke Exposure: No service: No Current occupational status: unemployed Cognitive needs: No Hearing needs: No Vision needs: Yes Assessment & Plan Assessment & Plan (1) Hypercholesterolemia: Code(s): E78.00 - Pure hypercholesterolemia, unspecified Category: Medical Plan: Wt: 70 Kg ( 12/13 ) Est kcal needs as per MSJ: 1600 (40% carb, 30% protein/fat) Est fluid needs as per 25-30 ml/d: 2100 Est prot per day as per 1 g/kg bw: 70 Recommend fiber intake : 8-10 g per day and gradually increase to 25-28 g per day for women and 35-38 g for men or as tolerated Recommend sodium intake per day : less than 2300 mg , unless otherwise specified by your doctor Educated patient on: ( R = reviewed V = verbalizes understanding N/R = needs review N/A = not applicable * Food sources of carbohydrate, adequate serving sizes and its role in various health conditions: R V N/R * Differences between complex carbohydrates a simple carbohydrates, role of fiber in diet: R V N/R * Lean protein sources of foods: R V NR * Differences between types of fats and role in diet (mono on saturated fat fatty acids, saturated fatty acids, trans fats): R * Food sources of sodium in salt and healthy modifications for heart health in kidney health: R V R/V * Vitamins and minerals: R V N/R * Healthy plate method concept: R * Physical activity: Benefits a precaution: R V N/R Patient Instructions: Work on choosing low fat food options: see list of low fat food options and low fat snacks have baked potato with chicken twice a week at dinner instead of fried potatoes/fried chicken Choose soy yogurt with a fruit added as a bedtime snack Coding Level of Care Code Nutr Indiv Intake (63664) Diagnoses Hypercholesterolemia E78.00 Time Spent (min) 30
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
[2024-11-21 10:54] VITALS: BMI 25.5
== END 2024-11-11 12:35 | disposition home or self-care (01) ==
LOC: HO.ENCR 11:48
PROVIDERS: PCP Internal Medicine; Visit Provider Dietitian, Registered
DX: E78.00 Pure hypercholesterolemia, unspecified (principal)

== ENCOUNTER → 2024-11-11 11:47 | Outpatient (BNVA) | payer OTHER, SELFPAY | PROVIDERS: PCP Internal Medicine; Visit Provider Dietitian, Registered | DX: E78.00 Pure hypercholesterolemia, unspecified (principal); Z71.3 Dietary counseling and surveillance | CPT/HCPCS: 97802; J1100; J2003; J2250; J2405; J3010 ==

== ENCOUNTER 2024-11-12 08:08 | Day surgery (SDC) | payer OTHER, SELFPAY ==
--- OUTSIDE RECORDS SUMMARY | 2024-10-09 13:09 | XMS_ITS | Encounter Summary ---
Author Organization [facility] Address [address] [place] [address] [address] [place] [address] Care Team Providers Care Marketing And Development Coordinator Name Role Phone Unavailable Primary Care Provider Unavailabl e Encounter Details Date Type Department Care Team (Latest Contact Info) Description 09/26/2018 Abstract [facility] CONVERSIONS Dental, Provider, DDS Social History [...] Description 10/10/2024 3:00 PM EDT Office Visit [facility] [address] [place] [address] Viviana Prado documented as of this encounter Visit Diagnoses Not on filedocumented in this encounter
--- OUTSIDE RECORDS SUMMARY | 2024-10-09 13:09 | XMS_ITS | Clinical Summary ---
Author Organization [facility] Address [address] [place] [address] Care Team Providers Care Arts Therapist Name Role Phone Carrie Marshall Primary Care Provider Allergies No known active allergies Encounters Date Type Department Care Team Description 07/12/2024 3:14 PM EST - 07/12/2024 6:43 PM EST Emergency [facility] Emergency Department [address] [place] [id number] Krishna Camacho MD Vasovagal near syncope [...] 75+ series) 2045 Procedures * Due to [facility] law, this organization might not be sharing negative HIV tests. Procedure Name Priority Date/Time Associated Diagnosis Comments BASIC METABOLIC PANEL STAT 07/12/2024 1:28 PM EST CBC AUTO DIFFERENTIAL STAT 07/12/2024 1:28 PM EST ECG 12-LEAD STAT 07/12/2024 1:13 PM EST HEART & VASCULAR - SCANNED 07/12/2024 from Last 3 Months Results * Due to [place] [employer] law, this organization might not be sharing negative HIV tests. * CBC Auto Differential (07/12/2024 1:28 PM EST) WBC 6.5 3.8 - 10.8 10*3/uL 07/12/2024 1:46 PM EST [facility] RBC 4.36 3.80 - 5.10 10*6/uL 07/12/2024 1:46 PM EST [facility] Hemoglobin 12.2 11.7 - 15.5 g/dL 07/12/2024 1:46 PM EST [facility] Hematocrit 37.8 35.0 - [...] - 3.90 10*3/uL 07/12/2024 1:46 PM EST [facility] Monocyte # 0.40 0.20 - 0.95 10*3/uL 07/12/2024 1:46 PM EST [facility] Eosinophil # 0.10 0.02 - 0.50 10*3/uL 07/12/2024 1:46 PM EST [facility] Basophil # <0.03 0.00 - 0.20 10*3/uL 07/12/2024 1:46 PM EST [facility] nRBC % 0.0 /100 WBCs 07/12/2024 1:46 PM EST [facility] nRBC # <0.01 <0.01 10*3/uL 07/12/2024 1:46 PM EST [facility] Blood Structure of peripheral vein / Unknown Venipuncture / Unknown 07/12/2024 1:28 PM EST 07/12/2024 1:38 PM EST us Krishna Camacho MD LAB BLOOD ORDERABLES Final Re sult [facility] [address] [place] [address], * (ABNORMAL) Basic Metabolic Panel (07/12/2024 1:28 PM EST) NA 143 135 - 145 mmol/L 07/12/2024 2:05 PM EST [facility] K 4.0 3.5 - 5.3 mmol/L 07/12/2024 2:05 PM EST [facility] Cl 109(H) 98 - 107 mmol/L 07/12/2024 2:05 PM EST [facility] CO2 23 22 - 32 mmol/L 07/12/2024 2:05 PM EST [facility] BUN 12 7 - 23 mg/dL 07/12/2024 2:05 PM EST [facility] Creatinine 0.84 0.50 - 1.20 mg/dL 07/12/2024 2:05 PM EST [facility] Glucose 99 65 - 99 mg/dL 07/12/2024 2:05 PM EST [facility] Calcium 9.8 8.6 - 10.5 mg/dL 07/12/2024 2:05 PM EST [facility] Anion Gap 11 5 - 15 07/12/2024 2:05 PM EST [facility] eGFR 83 >=60 mL/min/1. 73m2 07/12/2024 2:05 PM EST [facility] Comment:The estimated glomer ular [...] MD LAB BLOOD ORDERABLES Final Re sult [facility] [address] [place] [address], * ECG 12 lead For Preop? No (07/12/2024 1:13 PM EST) Ventricular Rate EKG 88 BPM MUSE EKG Atrial Rate 88 BPM MUSE EKG MS Interval 134 ms MUSE EKG QRS Interval 76 ms MUSE EKG QT Interval 356 ms MUSE EKG QTC Interval 430 ms MUSE EKG P [place] 44 degrees MUSE EKG R [place] -13 degrees MUSE EKG T Wave [place] 45 degrees MUSE EKG 07/12/2024 1:13 PM EST 07/20/2024 7:15 AM EST Impressions MUSE EKG - 07/20/2024 7:15 AM EST NORMAL SINUS RHYTHM LOW VOLTAGE QRS POOR ' r ' WAVE PROGRESSION ABNORMAL ECG NO PREVIOUS ECGS AVAILABLE Confirmed by Booker Greer ([id number]) on 07/20/2024 7:15:07 AM us Kirshna Camacho MD ECG ORDERABLES Final Result MUSE EKG * HEART & VASCULAR - SCANNED (07/12/2024) Anatomical Region Laterality Modality Other us Onbase Scan Rodriguez SCANNED PROCEDURES Final Resu lt from Last 3 Months Insurance [employer]ICA[employer] Care Teams Arts Therapist Relationship Specialty Start Date End Date Carrie Marshall [address] [place] [address] [place] [address] PCP - General Internal Medicine 07/12/24
--- OUTSIDE RECORDS SUMMARY | 2024-10-09 13:09 | XMS_ITS | Data Portability ---
Author Organization [facility] [employer] Address [address] [place] [address] [place] [address] Care Team Providers Care Radiotelegrapher Name Role Phone WILBER DACOSTA Referring Provider [...] or close by major centers such as [place] or [facility]. She understood and took some notes. [...] None recorded. Lab vitamin B12, serum 024 [facility], [address] [place] [address], [place], [address], 4 11:16:50 folate, serum 024 [facility] 1 [facility], [address] [facility], [place], [address], 4 15:38:59 mma (methylma lonic acid), serum 024 [facility], [address] [place] [address], [address], 4 11:19:07 homocyste ine, serum or plasma 024 [facility], [address] [place] [address], [address], 4 11:19:12 TSH, serum or plasma - E07.9 024 [facility] [address] [place] [address] Laboratory, [address] [place] [address], [address], 4 15:39:00 T4, free, serum - E07.[address] [facility], [address] [place] [address], [address], 4 15:39:00 vitamin D, 25-hydrox y, total, serum - E55.[address] [facility], [address] [place] [address], [address], 4 15:38:59 RPR (rapid plasma reagin), serum - A53.[address] [facility], [address] [place] [address], [address], 4 15:39:00 Referral None recorded. Procedures None recorded. Surgeries None recorded. Imaging None recorded. Medication Orders None recorded. Patient TargetsNo targets recorded. Patient Instructions Encounter Date Encounter Id Patient Instructions Last Modified By Organization Details Last Modified Time 09/05/2023 [id number] Discussion acros s issues of diagnoses and management and same day associated chart review and management greater than 50% greater than 60 minutes mrossen Not available 09/05/2023 14:45:21 10/24/2023 [id number] Discussion acros s issues of diagnoses and [...] Not available 09/05/2023 [id number] RxNorm Veena Cisneros [facility] 13:09:32 Medications Name Sig Start Date [...] Updated DateTime 09/05/2023 165.1 cm 25 kg/m2 91868.86 g 12 /min Veena Cisneros [facility] 09/05/2023 13:09:20 Social History Question Answer Notes LastModified by Organ[employer] Details LastModified Time Tobacco Smoking Status Never Smoker Veena guillen [facility] 09/05/2023 13:11:52 What Is Your Level Of Caffeine Consumption? Moderate 1 Cup Daily Information not available 09/05/2023 What Is The Highest Grade Or Level Of School You Have Completed Or The Highest Degree You Have Received? 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 677962442 D51.0 Abnormal t hyroid hormone 000131846 R94.6 Vitamin D deficiency 347 50869 E55.9 Syphilis 96508256 A53.9 [id number] Krishna Jenkins MD [facility] [address] [place] [address] [place] [address] 10/24/2023 16:39:30 10/30/2023 15:36:01 Mild neurocognitive disorder [id number] G31.84 Health Concerns Section Related Observation LastModified by Organization Detai ls LastModified Time None Recorded Concern Status LastModified by Organization Details LastModified Time None Recorded Advance Directives Directive None Recorded Payers Encounter Date Sequence Insurance Name Policy Number Policy Psot Covered Member ID Post Member ID Guarantor Name 09/05/2023 1 [facility] [employer] [facility] PLAN (MEDICAID HMO) JOSE Shabazz [id number] Wendy Shabazz 10/24/2023 1 [facility] [employer] [facility] PLAN (MEDICAID HMO) JOSE Shabazz [id number] Wendy Shabazz Notes Date Note Type Note [...] for her mother last week for a [employer] application. She had difficulty so that she needed to obtain guidance from an eldercare aids social worker. She thinks an earlier time she would not have needed such guidance. As an example, in 2007 she applied for medical guardianship for her mother was of her mother's of schizophrenia. She went to court, filled out forms and appeared in court all on her own, without an collections attorney.She lives with her mother and her [...] this is a possibility. Krishna Jenkins MD [address] [place] [address], [phone], [facility] 09/05/2023 14:45:37 10/24/2023 text/html Neurology follow -up [...] for her mother last week for a [employer] application. She had difficulty so that she needed to obtain guidance from an eldercare aids social worker. She thinks an earlier time she would not have needed such guidance. As an example, in 2007 she applied for medical guardianship for her mother was of her mother's of schizophrenia. She went to court, filled out forms and appeared in court all on her own, without an collections attorney.She lives with her mother and her [...] this is a possibility. Krishna Jenkins MD [address] [place] [address] [place], [address], [facility] 10/24/2023 18:29:29 OBGyn Episode No OBEpisode recorded.
--- OUTSIDE RECORDS SUMMARY | 2024-10-09 13:09 | XMS_ITS | Referral Summary ---
Author Organization [facility] Address [address] [place] [address] Care Team Providers Care Hasher Operator Name Role Phone Carrie Marshall Primary Care Provider [phone] Encounters Date Type Department Care Team Description 07/12/2024 3:14 PM EST - 07/12/2024 6:43 PM EST Emergency [facility] Emergency Department [address] [place] [id number] Krishna Camacho MD Vasovagal near syncope (Primary [...] Not on file Procedures * Due to [place] state law, this organization might not be sharing negative HIV tests. Procedure Name Priority Date/Time Associated Diagnosis Comments BASIC METABOLIC PANEL STAT 07/12/2024 1:28 PM EST CBC AUTO DIFFERENTIAL STAT 07/12/2024 1:28 PM EST ECG 12-LEAD STAT 07/12/2024 1:13 PM EST HEART & VASCULAR - SCANNED 07/12/2024 from Last 3 Months Results * Due to [place] state law, this organization might not be [...] <0.01 <0.01 10*3/uL 07/12/2024 1:46 PM EST [facility] Blood Structure of peripheral vein / Unknown Venipuncture / Unknown 07/12/2024 1:28 PM EST 07/12/2024 1:38 PM EST us Krishna Camacho MD LAB BLOOD ORDERABLES Final Re s[facility] [address] [place] [address], * (ABNORMAL) Basic Metabolic Panel (07/12/2024 1:28 PM EST) NA 143 135 - 145 mmol/L 07/12/2024 2:05 PM EST [facility] K 4.0 3.5 - 5.3 mmol/L 07/12/2024 2:05 PM EST [facility] Cl 109(H) 98 - 107 mmol/L 07/12/2024 2:05 PM EST [facility] CO2 23 22 - 32 mmol/L 07/12/2024 2:05 PM EST [facility] BUN 12 7 - 23 mg/dL 07/12/2024 2:05 PM EST [facility] Creatinine 0.84 0.50 - 1.20 mg/dL 07/12/2024 2:05 PM EST [facility] Glucose 99 65 - 99 mg/dL 07/12/2024 2:05 PM EST [facility] Calcium 9.8 8.6 - 10.5 mg/dL 07/12/2024 2:05 PM EST [facility] Anion Gap 11 5 - 15 07/12/2024 2:05 PM EST [facility] eGFR 83 >=60 mL/min/1. 73m2 07/12/2024 2:05 PM EST [employer] [facility] Comment:The estimated glomer ular [...] ORDERABLES Final Re sult Performing Organization Address City/[facility]/ZIP Co de Phone Number [facility] [address] [place] [address], [place] * ECG 12 lead For Preop? No (07/12/2024 1:13 PM EST) Ventricular Rate EKG 88 BPM MUSE EKG Atrial Rate 88 BPM MUSE EKG MA Interval 134 ms MUSE EKG QRS Interval 76 ms MUSE EKG QT Interval 356 ms MUSE EKG QTC Interval 430 ms MUSE EKG P [place] 44 degrees MUSE EKG R [place] -13 degrees MUSE EKG T Wave [place] 45 degrees MUSE EKG 07/12/2024 1:13 PM EST 07/20/2024 7:15 AM EST Impressions MUSE EKG - 07/20/2024 7:15 AM EST NORMAL SINUS RHYTHM LOW VOLTAGE QRS POOR ' r ' WAVE PROGRESSION ABNORMAL ECG NO PREVIOUS ECGS AVAILABLE Confirmed by Booker Greer ([id number]) on 07/20/2024 7:15:07 AM us Krishna Camacho MD ECG ORDERABLES Final Result Performing Organization Address [facility] Co de Phone Number MUSE EKG * HEART & VASCULAR - SCANNED (07/12/2024) Anatomical Region Laterality Modality Other us Onbase Scan Rodriguez SCANNED PROCEDURES Final Resu lt from Last 3 Months Insurance [employer]ICA[employer] Care Teams Hasher Operator Relationship Specialty Start Date End Date Carrie Marshall [address] [place] [address] [place] [address] PCP - General Internal Medicine 07/12/24
--- OUTSIDE RECORDS SUMMARY | 2024-10-09 13:09 | XMS_ITS | Encounter Summary ---
Author Organization [facility] Address [address] [place] [address] [address] [place] [address] Care Team Providers Care Food Service Cashier Name Role Phone Unavailable Primary Care Provider Unavailabl e Encounter Details Date Type Department Care Team (Latest Contact Info) Description 05/05/2021 Abstract [facility] CONVERSIONS Dental, Provider, DDS Social History [...] Description 10/10/2024 3:00 PM EDT Office Visit [facility] [address] [place] [address] Viviana Prado documented as of this encounter Visit Diagnoses Not on filedocumented in this encounter
--- OUTSIDE RECORDS SUMMARY | 2024-10-09 13:09 | XMS_ITS | Clinical Summary ---
Author Organization [employer] [facility] Address [address] [facility] 7 [place] [address] Care Team Providers Care Television Maintenance Man Name Role Phone Unavailable Primary Care Provider [...] MCG/ACT aerosol powder 3 Active HYDROcodone-fabrice taminophen ([place]) 5-325 MG tablet TAKE ONE TABLET BY [...] Description 10/10/2024 3:00 PM EDT Office Visit [facility] ADULT [facility] [address] [place] [address] Viviana Prado Health Maintenance Due Date Last Done Comments CT Colonography 1970 Colonoscopy 1970 Colorectal Cancer Screening 1970 Depression Screening 1970 FIT DNA/Cologuard 1970 FIT 1970 FOBT 1970 HIV Screening 1970 SDOH Screening 1970 Sigmoidoscopy 1970 Disability Screening 1970 Alcohol/Substance Use Screening 1982 Hepatitis C [...] Most Recently Relevant to Health Maintenance Insurance [facility] MEDICAID STAND ADULT
[2024-11-08 13:38] VITALS: BMI 26.3
--- NOTE | 2024-11-11 11:54 | HO.ANESPROP2 ---
HPI - Anesthesia Eval Consult details Narrative: 54yo F for Cystoscopy Hydrodistention of Bladder s/p same 07/2023 with GA PMFSH Active Problems Active Problems: All Active Problems Breast pain, right (Acute) Sore throat (Acute) Near syncope (Acute) Breast cancer screening by mammogram (Acute) Chronic neck and back pain (Acute) Myofascial muscle pain (Acute) Lumbosacral spondylosis (Acute) Cervical post-laminectomy syndrome (Acute) Chronic pain of left ankle (Acute) Right hip pain (Acute) Cervical radiculopathy (Acute) Lumbar degenerative disc disease (Acute) Memory loss (Acute) Pelvic pain (Acute) Acquired claw toe of left foot (Acute) Vision changes (Acute) Sinusitis (Acute) Upper respiratory tract infection (Acute) Annual physical exam (Acute) Generalized anxiety disorder (Acute) Irritable bowel syndrome (Acute) Left calf atrophy (Acute) Dysphagia (Acute) Asthma (Acute) GERD (gastroesophageal reflux disease) (Acute) Hypercholesterolemia (Acute) Hypertension (Acute) Interstitial cystitis (Acute) Degenerative disc disease, cervical (Acute) Past Medical History Medical History Lumbar stenosis Pneumonia due to COVID-19 virus Hospital discharge follow-up Chronic pain of left ankle IBS (irritable bowel syndrome) Anxiety Depression Asthma Hx of flexible sigmoidoscopy COVID-19 vaccine series completed History of COVID-19 Dental abscess Dental infection Sinusitis, maxillary, chronic Acute sinusitis Diarrhea Cervical radiculopathy ASCUS (atypical squamous cells of undetermined significance) on gynecologic Papanicolaou smear complicating , antepartum Lumbar degenerative disc disease GERD (gastroesophageal reflux disease) Hypercholesterolemia Insomnia Hypertension Interstitial cystitis Degenerative disc disease, cervical Family History Family History Father PTSD (post-traumatic stress disorder) Mental health disorder Mother No problems noted. Maternal Grandmother Breast cancer Maternal Grandfather Myocardial infarction Maternal Uncle Past heart attack Skin cancer Myocardial infarction Other Substance use disorder Family history of problems with anesthesia: No Surgical History Surgical History History of foot surgery Hx of cystoscopy History of surgery History of neck surgery S/P cervical discectomy H/O nasal septoplasty History of ankle surgery Status post laparoscopic surgery History of wisdom tooth extraction History of Problems with Anesthesia: Yes (nauseous post op) Social History Social History Housing: House Alcohol intake: current Comment: once a week 2 drinks Patient Tobacco Use Status: Never used Tobacco Years Smoked: quit 2009, CBD, vaping e-Cigarette/Vaping Use: Never Used Second Hand Smoke Exposure: No service: No Current occupational status: unemployed Cognitive needs: No Hearing needs: No Vision needs: Yes Meds Allergies Allergy/AdvReac Type Severity Reaction Status Date / Time animal dander (ANIMAL HAIR) Allergy Intermediate ASTHMA, Verified 11/12/24 08:24 HIVES lactose (Lactose) Allergy Mild DIARRHEA Verified 11/12/24 08:24 Home Medications ?Medication ?Instructions ?Recorded ?Confirmed ?Last Taken ?Type azelastine 137 mcg (0.1 %) nasal 2 spray intranasal BID 07/29/21 11/12/24 Unknown History spray dextroamphetamine-amphetamine ER 5 1 cap PO QAM 08/27/24 11/12/24 Unknown History mg 24hr capsule,extend release (Adderall XR) Exam Height,Weight and Vital Signs: Height 5 ft 5 in Weight 71.668 kg Assessment and Plan Assessment Anesthesia Assessment: Chart Reviewed Final Anesthetic Review Family History of Problems with Anesthesia: No History of Problems with Anesthesia: Yes (nauseous post op)
[2024-11-12 08:25] VITALS: BMI 25.7
[2024-11-12 08:32] VITALS: BP 131/78; PULSE 77; RESP 15; TEMP 36.7; O2SAT 97
[2024-11-12] MEDS: Lactated Ringers 1,000 ML 100 ML IVCONT (08:41)
--- NOTE | 2024-11-12 08:41 | W.PM.OPN ---
Operative Note Operative Note Date of Service: 11/12/24 Narrative: PREOP DIAGNOSIS: Interstitial cystitis, pelvic pain POSTOP DIAGNOSIS: Interstitial cystitis, pelvic pain PROCEDURE: CYSTOSCOPY HYDRODISTENTION Anethesia: General Surgeon: Dr. Carla Mcmillan Details of procedure: The patient was brought into the operating room placed on the OR table in supine position. 2 g of Ancef IV. General anesthesia was administered. The patient was repositioned into lithotomy position, prepped and draped in the usual sterile fashion. Time-out was done per protocol. On inspection a small urethral prolapse noted. 2% lidocaine jelly was placed transurethrally. The 22 fr cystoscope was placed transurethrally into the bladder. Urine was drained from the bladder measuring 70 mL. The right and left ureteral orifices were visualized. The entire bladder was visualized. There were no suspicious bladder lesions seen. There were mild trabeculations noted. The bladder was filled with sterile water at 80 cm of water pressure under gravity. The bladder was distended for 3 minutes. Bladder capacity measured 950 mL. On revisualization of the bladder, there were no glomerulations or Hunner's ulcerations. The bladder was refilled with sterile water again at 80 cm of water pressure under gravity. The bladder was distended for 5 minutes. The fluid was drained from the bladder and measured 1000 mL. The cystoscope was removed. 2% lidocaine urojet was passed transurethrally, Solution of (1% lidocaine plain, 15 mL, 0.5 % Marcaine 15 mL mixed with 30, 000 units of heparin concentration 5000 units per mL total of 6 mL hepaine) instilled transurethrally into the bladder. Belladonna rectal suppository placed. The patient was brought out of anesthesia and taken to recovery in stable condition. Complications: None EBL: minimal (<5 mL) Drains: none
--- NOTE | 2024-11-12 08:41 | MHC.SHP ---
Pre-Procedural Eval Section A - 24 Hr Update-Section A only Date of Service: 11/12/24 The patient is an INPATIENT: No The patient has been examined within 24 hours of the surgical procedure. The History & Physical has been completed within 30 days and I have reviewed it.: Yes Section B - Complete if H&P > 30 days Chief Complaint: Interstitial cystitis (chronic) without hematuria Allergies: Allergies Allergy/AdvReac Type Severity Reaction Status Date / Time animal dander (ANIMAL HAIR) Allergy Intermediate ASTHMA, Verified 11/12/24 08:24 HIVES lactose (Lactose) Allergy Mild DIARRHEA Verified 11/12/24 08:24 Plan Diagnosis/Plan: Unchanged I have reviewed the history and physical and performed a pertinent physical examination on my patient. No changes have occurred unless specified. Cystoscopy Hydrodistension. Discussed risks to include but not limited to, blood in the urine, burning with urination, urgency. Time Spent With Patient Time: Total time managing care of this patient today ____ minutes.
--- NOTE | 2024-11-12 08:52 | P.CONAN_ITS ---
[facility] Active Problems Active Problems: All Active Problems (Updated 11/12/24 @ 08:19 by Rosa Mitchell RN) Breast pain, right (Acute) Sore throat (Acute) Near syncope (Acute) Breast cancer screening by mammogram (Acute) Chronic neck and back pain (Acute) Myofascial muscle pain (Acute) Lumbosacral spondylosis (Acute) Cervical post-laminectomy syndrome (Acute) Right hip pain (Acute) Memory loss (Acute) Pelvic pain (Acute) Acquired claw toe of left foot (Acute) Vision changes (Acute) Sinusitis (Acute) Upper respiratory tract infection (Acute) Annual physical exam (Acute) Generalized anxiety disorder (Acute) Irritable bowel syndrome (Acute) Left calf atrophy (Acute) Dysphagia (Acute) Asthma (Acute) Chronic pain of left ankle (Acute) Cervical radiculopathy (Acute) Lumbar degenerative disc disease (Acute) GERD (gastroesophageal reflux disease) (Acute) Hypercholesterolemia (Acute) Hypertension (Acute) Interstitial cystitis (Acute) Degenerative disc disease, cervical (Acute) Past Medical History Medical History Lumbar stenosis Pneumonia due to COVID-19 virus Hospital discharge follow-up Chronic pain of left ankle IBS (irritable bowel syndrome) Anxiety Depression Asthma Hx of flexible sigmoidoscopy COVID-19 vaccine series completed History of COVID-19 Dental abscess Dental infection Sinusitis, maxillary, chronic Acute sinusitis Diarrhea Cervical radiculopathy ASCUS (atypical squamous cells of undetermined significance) on gynecologic Papanicolaou smear complicating , antepartum Lumbar degenerative disc disease GERD (gastroesophageal reflux disease) Hypercholesterolemia Insomnia Hypertension Interstitial cystitis Degenerative disc disease, cervical Functional capacity: independent ambulation Patient : No Family History Family History Father PTSD (post-traumatic stress disorder) Mental health disorder Mother No problems noted. Maternal Grandmother Breast cancer Maternal Grandfather Myocardial infarction Maternal Uncle Past heart attack Skin cancer Myocardial infarction Other Substance use disorder Family history of problems with anesthesia: No Surgical History Surgical History History of foot surgery Hx of cystoscopy History of surgery History of neck surgery S/P cervical discectomy H/O nasal septoplasty History of ankle surgery Status post laparoscopic surgery History of wisdom tooth extraction History of Problems with Anesthesia: Yes (nauseous post op) Social History Social History Housing: House Alcohol intake: current Comment: once a week 2 drinks Patient Tobacco Use Status: Never used Tobacco Years Smoked: quit 2009, CBD, vaping e-Cigarette/Vaping Use: Never Used Second Hand Smoke Exposure: No Use of substances other than those prescribed or required for medical reasons: No Are you DNR?: No Advance Directives: No Advance Directives Information Provided: Yes service: No Current occupational status: unemployed Cognitive needs: No Hearing needs: No Vision needs: Yes Meds Allergies Allergy/AdvReac Type Severity Reaction Status Date / Time animal dander (ANIMAL HAIR) Allergy Intermediate ASTHMA, Verified 11/12/24 08:24 HIVES lactose (Lactose) Allergy Mild DIARRHEA Verified 11/12/24 08:24 Active Medications: Current Medications Albuterol Sulfate (Albuterol Sulfate (0.083%) 2.5 Mg/3 Ml Vial.Neb) 2.5 mg INHALE ONCE PRN PRN Reason: Shortness of Breath/Wheezing Lactated Ringer's (Lr) 1,000 mls @ 100 mls/hr IVCONT .Q10H BRANDON Last Admin: 11/12/24 08:41 Dose: 100 mls/hr Home Medications ?Medication ?Instructions ?Recorded ?Confirmed ?Last Taken ?Type azelastine 137 mcg (0.1 %) nasal 2 spray intranasal BI D 07/29/21 11/12/24 Unknown History spray dextroamphetamine-amphetamine ER 5 1 cap PO QAM 11/12/24 Unknown History mg 24hr capsule,extend release (Adderall XR) Exam Height,Weight and Vital Signs: Height 5 ft 5 in Weight 70 kg Last Vital Signs Temp 98.0 F 11/12/24 08:32 Pulse 77 11/12/24 08:32 Resp 15 11/12/24 08:32 BP 131/78 11/12/24 08:32 Pulse Ox 97 11/12/24 08:32 O2 Del Method Room Air 11/12/24 08:32 Airway Mallampati Class: II TM Dist: >3cm Neck ROM: Full Heart: RRR Lungs: CTA Assessment and Plan Assessment Anesthesia Assessment: Anesthesia Plan Discussed Final Anesthetic Review Family History of Problems with Anesthesia: No History of Problems with Anesthesia: Yes (nauseous post op) NPO: Yes ASA Class: III Final Preanesthetic Review: Meds/Allgs Chart Reviewed, Consent Obtained/Reviewed and Anes Risks/Benef Reviewed Patient Risk: Intermediate Procedure Risk: Low Anesthetic Plan Anesthetic Plan: GA Disposition: Standard PACU
[2024-11-12] MEDS: ceFAZolin Sodium/Dextrose,Iso 2 GM/50 ML PIGGYBACK IV (09:14)
[2024-11-12 09:52] VITALS: BP 130/83; PULSE 70; RESP 16; TEMP 36.1; O2SAT 96
[2024-11-12 09:57] VITALS: BP 126/76; PULSE 74; RESP 16; O2SAT 98
[2024-11-12 10:00] VITALS: BP 135/82; PULSE 71; RESP 16; O2SAT 98
[2024-11-12 10:05] VITALS: BP 142/82; PULSE 72; RESP 16; O2SAT 99
[2024-11-12] MEDS: oxyCODONE HCl Immed Release 5 MG TABLET PO (10:34)
--- NOTE | 2024-11-12 10:45 | HO.INF ---
patient reports that camping is much better after the Percocet 07/29 feels ready for discharge
== END 2024-11-12 10:46 | disposition home or self-care (01) ==
PROVIDERS: Visit Provider Urology
PROC: 0T7B7ZZ Dilation of Bladder, Via Natural or Artificial Opening (ICD-10-PCS; CPT 52260; principal; 2024-11-12 09:30)
DX: N30.10 Interstitial cystitis (chronic) without hematuria (principal); R10.2 Pelvic and perineal pain; I10 Essential (primary) hypertension; E78.00 Pure hypercholesterolemia, unspecified; J45.909 Unspecified asthma, uncomplicated; F32.A Depression, unspecified; F41.9 Anxiety disorder, unspecified; Z79.899 Other long term (current) drug therapy; Z91.011 Allergy to milk products
CPT/HCPCS: 52260; 87086; J0690; J1100; J1644; J2003; J2405; J2704; J2795

== ENCOUNTER → 2024-11-12 08:08 | Outpatient (BNV) | payer OTHER, SELFPAY | PROVIDERS: Visit Provider Urology | DX: N30.10 Interstitial cystitis (chronic) without hematuria (principal); R10.2 Pelvic and perineal pain | CPT/HCPCS: 52260 ==

== ENCOUNTER → 2024-11-18 13:03 | Outpatient (BNVA) | payer OTHER, SELFPAY | PROVIDERS: Visit Provider Urology | DX: N30.10 Interstitial cystitis (chronic) without hematuria (principal) | CPT/HCPCS: 51798 ==

== ENCOUNTER 2024-12-04 10:19 | Outpatient (AMB) | payer OTHER, SELFPAY ==
--- NOTE | 2024-12-04 10:20 | MHC.PC.OV ---
Vital Signs 12/04/24 10:21 Height 5 ft 5 in Weight 150 lb BMI 25.0 BP 126/82 Blood Pressure Location Lt brachial Position Sitting Pulse 78 Pulse Source Pulse Oximeter Pulse Oximetry (%) 98 Oxygen Delivery Method Room Air Intake Visit Reasons: follow up Tombstone Setter Required: No Accompanied by: Self / Same As Patient Allergies animal dander (ANIMAL HAIR) Allergy (Intermediate, Verified 12/04/24 10:22) ASTHMA, HIVES lactose (Lactose) Allergy (Mild, Verified 12/04/24 10:22) DIARRHEA pentosan polysulfate sodium (From Elmiron) Adverse Reaction (Intermediate, Unverified 12/04/24 11:07) LFT elevation Medication List - Last Reconciled 12/04/24 by Carrie Conner Po, albuterol sulfate 90 mcg/actuation (Ventolin HFA) 2 puffs PO Q4-6H PRN azelastine 2 sprays intranasal BID bupropion HCl 75 mg PO DAILY 90 days bupropion HCl XL 150 mg PO DAILY cholecalciferol (vitamin D3) 50 mcg PO DAILY dextroamphetamine-amphetamine 5 mg ER (Adderall XR) 1 cap PO QAM dicyclomine 20 mg (2 x 10 mg) PO BID diphenhydramine HCl (Banophen) 50 mg PO BEDTIME PRN epinephrine 0.3 mg (0.3 mL) IM ONCE PRN escitalopram oxalate 10 mg PO DAILY esketamine (Spravato) inhale 2 sprays into each nostril 2 times per week, with 5-minute rest between use of each device intranasal SURENDRA Dr. [facility] [address] [place] [address] esomeprazole magnesium 40 mg PO DAILY fexofenadine 180 mg PO DAILY PRN 90 days fluconazole 150 mg PO ONCE fluticasone propion-salmeterol 250-50 mcg/dose (Advair Diskus) 1 inh inhalation Q12H fluticasone propionate 50 mcg/actuation 2 sprays intranasal DAILY gabapentin 100 mg PO TID hydrocodone-acetaminophen 5-325 mg 1 tab PO TID PRN 30 days ibuprofen 800 mg PO Q12H PRN lisinopril 5 mg PO DAILY loperamide (Anti-Diarrheal (loperamide)) 2 mg PO QID PRN 30 days magnesium oxide 400 mg PO DAILY menthol 5% (Cold and Hot (menthol)) 1 patch topical DAILY PRN methen-brandin-carlitoexdr-hwjgx-wkr 118-10-40.8-36 mg 1 tab PO TID montelukast 10 mg PO BEDTIME 90 days ondansetron 4 mg PO Q8H PRN oxycodone-acetaminophen 5-325 mg (Percocet) 1 tab PO Q6H PRN phenazopyridine (Pyridium) 200 mg PO Q8H PRN promethazine 25 mg PO Q12H PRN zolpidem 10 mg PO BEDTIME 90 days Tobacco use date assessed: 09/05/24 Dental Screening Dental Screen Date: 09/05/24 [facility] Medical History Lumbar stenosis Pneumonia due to COVID-19 virus Hospital discharge follow-up Chronic pain of left ankle IBS (irritable bowel syndrome) Anxiety Depression Asthma Hx of flexible sigmoidoscopy COVID-19 vaccine series completed History of COVID-19 Dental abscess Dental infection Sinusitis, maxillary, chronic Acute sinusitis Diarrhea Cervical radiculopathy ASCUS (atypical squamous cells of undetermined significance) on gynecologic Papanicolaou smear complicating , antepartum Lumbar degenerative disc disease GERD (gastroesophageal reflux disease) Hypercholesterolemia Insomnia Hypertension Interstitial cystitis Degenerative disc disease, cervical Surgical History History of foot surgery Hx of cystoscopy History of surgery History of neck surgery S/P cervical discectomy H/O nasal septoplasty History of ankle surgery Status post laparoscopic surgery History of wisdom tooth extraction Family History Father PTSD (post-traumatic stress disorder) Mental health disorder Mother No problems noted. Maternal Grandmother Breast cancer Maternal Grandfather Myocardial infarction Maternal Uncle Past heart attack Skin cancer Myocardial infarction Other Substance use disorder Social History Housing: House Alcohol intake: current Comment: once a week 2 drinks Patient Tobacco Use Status: Never used Tobacco Years Smoked: quit 2009, CBD, vaping e-Cigarette/Vaping Use: Never Used Second Hand Smoke Exposure: No service: No Current occupational status: unemployed Cognitive needs: No Hearing needs: No Vision needs: Yes Questionnaire Thrive Questionnaire Date Thrive assessed: 09/05/24 SURENDRA-7 AMB Questionnaire SURENDRA-7 Date SURENDRA - 7 assessed: 09/05/24 Source: Developed by Drs. Vineet Centeno, Eri Gaming, Brent Biswas and colleagues, with an educational mulugeta from [employer]. Physical exam (Primary Care) Vital Signs: Last Vital Signs Pulse 78 12/04/24 10:21 BP 126/82 12/04/24 10:21 Pulse Ox 98 12/04/24 10:21 Oxygen Delivery Method Room Air 12/04/24 10:21 BMI result Body Mass Index 25.0 Tobacco/Smoking Status: Tobacco use Status Tobacco use date assessed 09/05/24 12/04/24 10:24 Patient Tobacco Use Status Never used Tobacco 12/04/24 10:24 e-Cigarette/Vaping Use Never Used 12/04/24 10:24 Thrive Assessment: Date of Thrive Assessment Date Thrive assessed 09/05/24 12/04/24 10:24 Const General: alert; No acute distress Eyes Conjunctivae: conjunctivae normal Resp Auscultation: clear to auscultation bilaterally Cardio Rate: regular rate Rhythm: regular rhythm GI Inspection: Yes normal to inspection Extrem General: Yes normal to inspection and No edema Coding Level of Care Code Est Pt Level 4 (41074) Complex EM visit Add On G2211 Diagnoses Essential hypertension I10 Hypertension type: essential hypertension Hypercholesterolemia E78.00 Gastroesophageal reflux disease without esophagitis K21.9 Esophagitis presence: without esophagitis Interstitial cystitis N30.10 Cervical post-laminectomy syndrome M96.1 Memory loss R41.3 Mild intermittent asthma without complication J45.20 Asthma complication type: uncomplicated Asthma persistence: intermittent Asthma severity: mild Generalized anxiety disorder F41.1 Assessment & Plan Assessment & Plan (1) Hypertension: Code(s): I10 - Essential (primary) hypertension Category: Medical Qualifiers: Hypertension type: essential hypertension Qualified Code(s): I10 - Essential (primary) hypertension Plan: Continue with blood pressure medication. Decrease salt intake and exercise patient on lisinopril 5 mg once a day (2) Hypercholesterolemia: Code(s): E78.00 - Pure hypercholesterolemia, unspecified Category: Medical Plan: Avoid fried foods, chicken skin, eggs, butter margarine, pastries and meat. Be it pork or beef they have a lot of cholesterol LDL goal of less than 130 and triglyceride of less than 150 (3) GERD (gastroesophageal reflux disease): Code(s): K21.9 - Gastro-esophageal reflux disease without esophagitis Category: Medical Qualifiers: Esophagitis presence: without esophagitis Qualified Code(s): K21.9 - Gastro-esophageal reflux disease without esophagitis Plan: Avoid the foods that causes that usually spicy foods, tomato products, juices, coffee, soda and foods that your sensitive to. After eating do not lie down, allow 3-4 hours before in lie down. And keep the head of bed above 30 degrees to avoid the acid from going up. (4) Interstitial cystitis: Code(s): N30.10 - Interstitial cystitis (chronic) without hematuria Category: Medical Plan: Patient just had hydrodistention under urology continue to follow-up (5) Cervical post-laminectomy syndrome: Code(s): M96.1 - Postlaminectomy syndrome, not elsewhere classified Category: Medical Plan: Narcotic pain meds: Is being prescribed with the understanding that these medications are potentially addictive and should be used only when absolutely necessary and must always be secured. Any remaining pills should be safely disposed off appropriately. Patient is advised that narcotics can impaired judgment and one should not drive or operate heavy machinery while taking these medications. Never share these medications with anybody and do not leave them unattended. They will not be replaced under any circumstances. (6) Memory loss: Code(s): R41.3 - Other amnesia Category: Medical Plan: Reviewed the notes from Neurology and has attributed a lot of the problem with memory loss with the psychiatric condition. (7) Asthma: Code(s): J45.909 - Unspecified asthma, uncomplicated Category: Medical Qualifiers: Asthma complication type: uncomplicated Asthma persistence: intermittent Asthma severity: mild Qualified Code(s): J45.20 - Mild intermittent asthma, uncomplicated Plan: Continue with albuterol inhaler as needed on montelukast and Advair (8) Generalized anxiety disorder: Comment: [address] [phone] Code(s): F41.1 - Generalized anxiety disorder Category: Medical Plan History of Present Illness The patient is a 54-year-old female presenting for a follow-up visit after being last seen in August 2024. She has a history of degenerative disc disease, interstitial cystitis, hypertension, hypercholesterolemia, and gastroesophageal reflux disease (GERD). The patient receives refills on narcotic pain medication for cervical disc problems and follows up with urology for interstitial cystitis, having undergone cystoscopy and hydrodistension in October 2024. The patient has been diagnosed with generalized anxiety disorder and experiences memory problems associated with depression and situational stress. She had a syncope episode and was diagnosed with mild neurocognitive disorder and vasovagal episodes, with a neurological exam being unrevealing. Her last blood work in August showed normal blood count, electrolytes, renal function, blood sugar, magnesium, liver function, vitamin D, and thyroid levels, but elevated cholesterol at 150 mg/dL. The patient has a family history of heart disease and has been working with a steam table associate to manage her cholesterol levels. The patient reports muscle atrophy and dissatisfaction with the condition of her foot after toe pinning, with a sore developing under the third toe. She has stopped taking Elmiron due to early signs of retinal damage and its effect on liver enzymes. Health Maintenance - Last colonoscopy in 2018 - Mammogram up to date as of June 2024 - Blood work in August 2024 showed normal results except for elevated cholesterol Social History - Reports significant stress due to mother's situation in a correction, leading to situational stress and depression Review of Systems - Neurological: Reports memory problems associated with depression and situational stress. Denies significant neurological findings on exam. - Cardiovascular: Reports syncope episode. Denies other cardiovascular symptoms. - Musculoskeletal: Reports muscle atrophy and dissatisfaction with foot condition post-surgery. Physical Exam Results - Labs: Normal blood count, electrolytes, renal function, blood sugar, magnesium, liver function, vitamin D, and thyroid levels. Elevated cholesterol at 150 mg/dL. Plan The patient will continue to manage her hypertension with lisinopril 5 mg daily and monitor her blood pressure regularly. For hypercholesterolemia, the patient is advised to maintain an LDL goal of less than 130 mg/dL and triglycerides less than 150 mg/dL, with a follow-up fasting cholesterol test scheduled in a month. The patient is to continue follow-up with urology for interstitial cystitis management, having recently undergone hydrodistension. She will also continue using an albuterol inhaler as needed and montelukast for respiratory management. The patient is advised to consult with her psychiatrist regarding the ketamine treatment and its side effects, including nausea, and to consider using Zofran for nausea management. She is encouraged to address situational stress and depression, potentially impacting her memory and overall health. Patient was informed and verbally consented to the use of an ambient scribe for clinic note documentation during this visit. Discussion Notes During the visit, we discussed the patient's current management plans for hypertension, hypercholesterolemia, and interstitial cystitis. I advised the patient on the importance of maintaining her cholesterol levels and scheduled a follow-up fasting cholesterol test in a month. We also reviewed the side effects of her current psychiatric treatment with ketamine and discussed the potential use of Zofran for nausea management. The patient was encouraged to continue addressing her situational stress and depression, which may be impacting her memory and overall health. Patient Instructions - Continue taking lisinopril 5 mg daily for blood pressure management. - Schedule a follow-up fasting cholesterol test in one month. - Follow up with urology for interstitial cystitis management. - Use albuterol inhaler as needed and continue montelukast for respiratory issues. - Consult with psychiatrist regarding ketamine treatment and consider using Zofran for nausea. - Address situational stress and depression to improve memory and overall health. Orders: Orders Lipid Panel 4 Weeks E78.00 - Pure hypercholesterolemia, unspecified Comprehensive Met. Panel Today E78.00 - Pure hypercholesterolemia, unspecified Medications: New esketamine (Spravato) inhale 2 sprays into each nostril 2 times per week, with 5-minute rest between use of each device intranasal SURENDRA Dr. [facility] [address] [place] [address] ea 0RF F41.1 - Generalized anxiety disorder ondansetron 4 mg PO Q8H PRN 14 tabs 1RF nausea and vomiting
[2024-12-04 10:21] VITALS: BP 126/82; PULSE 78; O2SAT 98; BMI 25.0
--- OUTSIDE RECORDS SUMMARY | 2024-12-04 10:52 | XMS_ITS | Clinical Summary ---
Author Organization [facility] Address [address] [place] [address] Care Team Providers Care Treasury Specialist Name Role Phone Carrie Marshall Primary Care Provider [phone] Allergies No known active allergies Social History [...] 78 07/12/2024 6:33 PM EST Temperature 37 C (98.6 F) 07/12/2024 6:33 PM EST Respiratory Rate 16 [...] Vaccines (1 of 2) 02/03/2020 COVID-19 Vaccine (2023- season) 2024 Alcohol/Substance Use Screening 05/22/2024 Depression Screening and Follow-Up 05/22/2024 Social Drivers of Health Annual Screening 05/22/2024 Influenza Vaccine (#1) 2025 Basic Metabolic Panel 07/12/2025 07/12/2024 RSV Vaccine (60+ years old a nd patients) (1 - 1-dose 75+ series) 2045 Procedures * Due to [place] ATG Access law, this organization might not be sharing negative HIV tests. Procedure Name Priority Date/Time Associated Diagnosis Comments BASIC METABOLIC PANEL STAT 07/12/2024 1:28 PM EST from Last 3 Months or Most Recently Relevant to Health Maintenance Results * Due to [place] [employer] Access law, this organization might not be sharing negative HIV tests. * (ABNORMAL) Basic Metabolic Panel (07/12/2024 1:28 PM EST) NA 143 135 - 145 mmol/L 07/12/2024 2:05 PM EST [facility] K 4.0 3.5 - 5.3 mmol/L 07/12/2024 2:05 PM EST [facility] Cl 109(H) 98 - 107 mmol/L 07/12/2024 2:05 PM EST [facility] CO2 23 22 - 32 mmol/L 07/12/2024 2:05 PM EST [facility] BUN 12 7 - 23 mg/dL 07/12/2024 2:05 PM EST [facility] Creatinine 0.84 0.50 - 1.20 mg/dL 07/12/2024 2:05 PM EST [facility] Glucose 99 65 - 99 mg/dL 07/12/2024 2:05 PM EST [facility] Calcium 9.8 8.6 - 10.5 mg/dL 07/12/2024 2:05 PM EST [facility] Anion Gap 11 5 - 15 07/12/2024 2:05 PM EST [facility] eGFR 83 >=60 mL/min/1. 73m2 07/12/2024 2:05 PM EST [facility] Comment:The estimated glomer ular [...] MD LAB BLOOD ORDERABLES Final Re sult [facility] [address] [phone], from Last 3 Months or Most Recently Relevant to Health Maintenance Insurance [place] [id number] Care Teams Treasury Specialist Relationship Specialty Start Date End Date Carrie Marshall [address] [place] [address] dr Viola Rod [place] [phone] PCP - General Internal Medicine 07/12/24
--- OUTSIDE RECORDS SUMMARY | 2024-12-04 10:52 | XMS_ITS | Data Portability ---
Author Organization [facility] [employer], [employer] Address [address] [place] [id number] Care Team Providers Care Trim Sawyer Name Role Phone WILBER DACOSTA Referring Provider Unavailable WILBER DACOSTA Referring Provider WILBER DACOSTA Primary Care Provider [phone] Assessment Encounter Date Assessment Date Assessment LastModified [...] much more. She understands. DANAE Wendy Donohueaulieu (Fernando) September 05, 2023 Laboratories four metabolic [...] have clinical sites close to this area, [place] or close by major centers such as [place] or [facility]. She understood and took some notes. [...] detailed above. luna Not available 10/24/2023 18:26:35 11/07/2024 11/07/2024 IMPRESSION: Vasovagal syncope historically since 2016, occurring in the context of stress. August [...] or not imaging that was reassuring at [facility] emergency room included head imaging the patient [...] one stress reaction. She did well to order puller when she was feeling lightheaded. She wonders [...] have clinical sites close to this area, [place] or close by major centers such as [place] or [facility]. She understood and took some notes. [...] do much more. She understands. PLAN Wendy Hopkins) November 07, 2024 Follow-up as needed as detailed above. luna Not available 11/07/2024 13:18:13 Plan of Treatment Reminders Order Date Submit Date Provider Last Modified By Organization Details Last Modified Time Details Appointments None recorded. Lab vitamin B12, serum 024 [facility], [address] [place] [address], [id number], 4 11:16:50 folate, serum 024 blanca 1 [facility], [address] [place] [address], [id number], 4 15:38:59 mma (methylma lonic acid), serum 024 [facility], [address] [place] [address], [address], 4 11:19:07 homocyste ine, serum or plasma 024 [facility], [address] [place] [address], [id number], 4 11:19:12 TSH, serum or plasma - E07.[address] [address] [facility], [address] [place] [address], [id number], 4 15:39:00 T4, free, serum - E07.[address] [facility], [address] [place] [address], [id number], 4 15:39:00 vitamin D, 25-hydrox y, total, serum - E55.[address] [facility], [address] [place] [address], [id number], 4 15:38:59 RPR (rapid plasma reagin), serum - A53.[address] [facility], [address] [place] [address], [address], 4 15:39:00 Referral None recorded. Procedures None recorded. Surgeries None recorded. Imaging None recorded. Medication Orders None recorded. Patient TargetsNo targets recorded. Patient Instructions Encounter Date Encounter Id Patient Instructions Last Modified By Organization Details Last Modified Time 09/05/2023 [id number] Discussion acros s issues of diagnoses and management and same day associated chart review and management greater than 50% greater than 60 minutes [email or web address] Not available 09/05/2023 14:45:21 10/24/2023 [id number] Discussion acros s issues of diagnoses and management and same day associated chart review and management greater than 50% greater than 40 minutes mrossen Not available 10/24/2023 18:29:16 11/07/2024 [id number] Discussion acros s issues of diagnoses and management and same day associated chart review and management greater than 50% greater than 40 minutes mrossen Not available 11/07/2024 12:36:13 Reason for Referral None Reported. Results Created [...] available Not available 09/05/2023 [id number] RxNorm [facility] 4 13:09:32 Medications Name Sig [...] Not Available Not Available omeprazole 40 mg capsule,carin yed release TAKE ONE [...] Updated DateTime 09/05/2023 165.1 cm 25 kg/m2 65058.86 g 12 /min Ve[facility] 09/05/2023 13:09:20 Social History Question Answer Notes LastModified by Carista App Details LastModified Time Tobacco Smoking Status Never Smoker [facility] 09/05/2023 13:11:52 What Is Your Level Of Caffeine Consumption? Moderate 1 Cup Daily Information not available 09/05/2023 What Is The Highest Grade Or Level Of School You Have Completed Or The Highest Degree You Have Received? 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 552091807 D51.0 Abnormal t hyroid hormone 996680703 R94.6 Vitamin D deficiency 347 94727 E55.9 Syphilis 15163319 A53.9 [id number] Krishna Jenkins MD [facility] [address] [place] [address] [place] [address] 10/24/2023 16:39:30 10/30/2023 15:36:01 Mild neurocognitive disorder 495005196 G31.84 [id number] Krishna Jenkins MD [address] [place] [address] 11/07/2024 12:30:04 11/07/2024 13:32:07 Mild neurocognitive disorder 083669469 G31.84 Vasovagal syncope 047875 005 R55 Health Concerns Section Related Observation LastModified by Organization Detai ls LastModified Time None Recorded Concern Status LastModified by Organization Details LastModified Time None Recorded Advance Directives Directive None Recorded Payers Insurance Date Sequence Insurance Name Policy Number Policy Post Covered Member ID Post Member ID Guarantor Name 11/16/2024 1 [facility] PLAN (MEDICAID HMO) JOSE Shabazz [id number] Wendy Shabazz Notes Date Note Type Note Provider Name and Address Organization Details Recorded Time 09/05/2023 text/html She presents for initial neurology consultation for assessment and management of concern about her memory function. Past history per chart includes hypertension, hypercholesterolemia, [...] for her mother last week for a [employer] application. She had difficulty so that she needed to obtain guidance from an eldercare social director. She thinks an earlier time she would not have needed such guidance. As an example, in 2007 she applied for medical guardianship for her mother was of her mother's of schizophrenia. She went to court, filled out forms and appeared in court all on her own, without an assistant district attorney.She lives with her mother and her [...] is a possibility. Krishna Jenkins MD [address] [place] [address] [place], [phone], [facility] 09/05/2023 14:45:37 10/24/2023 text/html Neurology follow -up of concern about her memory function. Past history per chart includes hypertension, hypercholesterolemia, [...] for her mother last week for a [employer] application. She had difficulty so that she needed to obtain guidance from an eldercare social director. She thinks an earlier time she would not have needed such guidance. As an example, in 2007 she applied for medical guardianship for her mother was of her mother's of schizophrenia. She went to court, filled out forms and appeared in court all on her own, without an assistant district attorney.She lives with her mother and her [...] is a possibility. Krishna Jenkins MD [address] [place] [address] [place], [phone], [facility] 10/24/2023 18:29:29 11/07/2024 text/html Reconsultation f or an event [...] relating to her stressful situation.We reviewed the [facility] discharge summary together. The discharge summary reviewed [...] for her mother last week for a [employer] application. She had difficulty so that she needed to obtain guidance from an eldercare social director. She thinks an earlier time she would not have needed such guidance. As an example, in 2007 she applied for medical guardianship for her mother was of her mother's of schizophrenia. She went to court, filled out forms and appeared in court all on her own, without an assistant district attorney.She lives with her mother and her [...] is a possibility. Krishna Jenkins MD [address] [place] [address] [place], [phone], [facility] 11/07/2024 13:19:04 OBGyn Episode No OBEpisode recorded.
--- OUTSIDE RECORDS SUMMARY | 2024-12-04 10:52 | XMS_ITS | Encounter Summary ---
Author Organization [employer] [facility] Address [address] [place] [address] [address] [place] [address] Care Team Providers Care Payroll And Benefits Assistant Name Role Phone Unavailable Primary Care Provider Unavailabl e Encounter Details Date Type Department Care Team (Latest Contact Info) Description 09/26/2018 Abstract [facility] CONVERSIONS Dental, Provider, DDS Social History [...] as of this encounter Plan of Treatment Not on file documented as of this encounter Visit Diagnoses Not on filedocumented in this encounter
== END 2024-12-04 11:14 | disposition home or self-care (01) ==
LOC: HO.HMCH 10:19
PROVIDERS: Visit Provider Internal Medicine
DX: I10 Essential (primary) hypertension (principal); E78.00 Pure hypercholesterolemia, unspecified; K21.9 Gastro-esophageal reflux disease without esophagitis; N30.10 Interstitial cystitis (chronic) without hematuria; M96.1 Postlaminectomy syndrome, not elsewhere classified; R41.3 Other amnesia; J45.20 Mild intermittent asthma, uncomplicated; F41.1 Generalized anxiety disorder

== ENCOUNTER → 2024-12-04 10:19 | Outpatient (BNVA) | payer OTHER, SELFPAY | PROVIDERS: Visit Provider Internal Medicine | DX: I10 Essential (primary) hypertension (principal); E78.00 Pure hypercholesterolemia, unspecified; K21.9 Gastro-esophageal reflux disease without esophagitis; N30.10 Interstitial cystitis (chronic) without hematuria; M96.1 Postlaminectomy syndrome, not elsewhere classified; R41.3 Other amnesia; J45.20 Mild intermittent asthma, uncomplicated; F41.1 Generalized anxiety disorder; Z79.891 Long term (current) use of opiate analgesic | CPT/HCPCS: 99212 ==

== ENCOUNTER 2024-12-06 10:24 | Outpatient (AMB) | payer OTHER, SELFPAY ==
--- NOTE | 2024-12-06 10:33 | MHC.OFFVIS ---
Intake Visit Reasons: hydrodistension follow up Intake Note: Patient is present for hydrodistention follow up Urology Meds:Pyridium Antibiotic Allergies: none Blood Thinners: none Cytology Laboratory Manager Required: No Accompanied by: Child Allergies animal dander (ANIMAL HAIR) Allergy (Intermediate, Verified 12/06/24 10:35) ASTHMA, HIVES lactose (Lactose) Allergy (Mild, Verified 12/06/24 10:35) DIARRHEA pentosan polysulfate sodium (From Elmiron) Adverse Reaction (Intermediate, Verified 12/06/24 10:35) LFT elevation Medication List - Last Reconciled 12/06/24 by Carla Mcmillan MD albuterol sulfate 90 mcg/actuation (Ventolin HFA) 2 puffs PO Q4-6H PRN azelastine 2 sprays intranasal BID bupropion HCl 75 mg PO DAILY 90 days bupropion HCl XL 150 mg PO DAILY cholecalciferol (vitamin D3) 50 mcg PO DAILY dextroamphetamine-amphetamine 5 mg ER (Adderall XR) 1 cap PO QAM dicyclomine 20 mg (2 x 10 mg) PO BID diphenhydramine HCl (Banophen) 50 mg PO BEDTIME PRN epinephrine 0.3 mg (0.3 mL) IM ONCE PRN escitalopram oxalate 10 mg PO DAILY esketamine (Spravato) inhale 2 sprays into each nostril 2 times per week, with 5-minute rest between use of each device intranasal SURENDRA Dr. [facility] [address] [place] [address] esomeprazole magnesium 40 mg PO DAILY fexofenadine 180 mg PO DAILY PRN 90 days fluconazole 150 mg PO ONCE fluticasone propion-salmeterol 250-50 mcg/dose (Advair Diskus) 1 inh inhalation Q12H fluticasone propionate 50 mcg/actuation 2 sprays intranasal DAILY gabapentin 100 mg PO TID hydrocodone-acetaminophen 5-325 mg 1 tab PO TID PRN 30 days ibuprofen 800 mg PO Q12H PRN lisinopril 5 mg PO DAILY loperamide (Anti-Diarrheal (loperamide)) 2 mg PO QID PRN 30 days magnesium oxide 400 mg PO DAILY menthol 5% (Cold and Hot (menthol)) 1 patch topical DAILY PRN neo-phsal-hyo 118-10-40.8-36 mg 1 tab PO TID montelukast 10 mg PO BEDTIME 90 days ondansetron 4 mg PO Q8H PRN oxycodone-acetaminophen 5-325 mg (Percocet) 1 tab PO Q6H PRN phenazopyridine (Pyridium) 200 mg PO .q12h PRN promethazine 25 mg PO Q12H PRN zolpidem 10 mg PO BEDTIME 90 days HPI Comments Details: 12/06/24--Wendy is a 54-year-old female followed for chronic interstitial cystitis she is prescribed gabapentin and Pyridium PRN and Uribel PRN she is here for follow-up status post repeat cystoscopy hydrodistention, 11/12/2024. History of Present Illness - The patient is a 54-year-old female presenting for follow-up of chronic interstitial cystitis. - Chronic interstitial cystitis is managed with gabapentin and Uribel, Pyridium as needed. - the patient had good symptom relief with Elmiron which was discontinued due to side effects. - She underwent repeat cystoscopy with hydrodistension, which slightly aggravated her symptoms. - Persistent pain is reported despite medication, with a recent lapse in medication due to prescription issues. - Sperato treatments with escapadine, including ketamine, have been initiated by her psychiatrist for mood stabilization - Past bladder installations of lidocaine aggravated her condition. - She experiences acid reflux and has been advised to take pyridium with food to reduce nausea. - Significant stress is reported due to personal circumstances, including issues with her mother's healthcare and transportation problems. Plan - Continue gabapentin and Uribel as needed for chronic interstitial cystitis management. - Pyridiumto be taken gingerly, every other day, until Uribel is available. - Schedule a six-month follow-up appointment. 10/07/24--Wendy she is 54-year-old female who is followed for chronic interstitial cystitis, she is currently on gabapentin and pyridium prn, while trying to maintain adequate hydration. There is a significant stress component related to her mother's healthcare facility mismanagement, exacerbating her symptoms. She is followed by pain management for chronic pain with Vicodin. Discussion Notes During the visit, I discussed the patient's pain management, emphasizing the careful use of gabapentin and Vicodin, avoiding excessive medication. We discussed managing urinary symptoms using pyridium and increasing fluid intake to alleviate discomfort. Additionally, we considered the impact of dietary choices on recurrent yeast infections, supporting the choice of oral fluconazole, and the importance of dietary adjustments to mitigate symptoms. The importance of follow-up with her psychiatrist and further consultation for additional treatment options was emphasized. Plan- Repeat cystoscopy hydrodistension. 07/18/24--Wendy she is 54-year-old female who is followed for chronic interstitial cystitis, she is currently on gabapentin and Uribel. The patient is a 54-year-old female presenting with chronic interstitial cystitis management. The patient has experienced chronic symptoms associated with interstitial cystitis and has been under management with Gabapentin. The cessation of Elmiron is particularly notable due to potential early retinal involvement, preventing further exacerbation. She also uses Pyridium and Urabelle selectively for flare management. Recent exacerbations have been linked primarily to increased personal stress, notably concerning her mother's health complications including possible endometrial cancer and advancing dementia, causing increased anxiety and contributing to the patient's overall symptomatology. She has experienced past success with symptom resolution following environmental and situational stress reduction, with her current medication approach serving to support daily function. - Recent urinalysis: absence of hematuria, presence of leukocytes warranting culture for potential UTI exclusion. 12/07/23--Telehealth FU-Wendy is being followed for interstitial cystitis. Comorbidity cervical and lumbar radiculopathy. She is tapered off of the Elmiron. She is managed with cystoscopy hydrodistention as needed. She watches her diet. And she is aware of her IC stressors. She complains that her pain symptoms have been worsening off of the Elmiron. Discussed restarting elmiron and will also add gabapentin. 10/20/23--Wendy is being followed for interstitial cystitis. Comorbidity cervical and lumbar radiculopathy. She is tapered off of the Elmiron. She is managed with cystoscopy hydrodistention as needed. Last cystoscopy hydrodistention was on 08/08/2023--she watches her diet. 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 She states that she is going through flare. I have discussed using NSAIDs and Pyridium p.r.n.. Motrin 800 mg every 12 hours p.r.n. sent to the pharmacy. The patient is on a pain management regimen for her radiculopathy condition. 08/31/2023--Wendy is being followed for interstitial cystitis. She is status post repeat cystoscopy hydrodistention on 08/08/2023--cystoscopy findings bladder capacity post post distention 900 mL no glomerulations observed. The patient states that she has been doing better since the cystoscopy. She is aware that she has stress-induced IC flare ups. 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 She is planning to have her moved to an assisted living facility which she feels will be beneficial to her mother and take some of the stress away. She denies dysuria. She denies gross hematuria or urinary incontinence. Urinalysis: Urinalysis negative blood negative. Plan follow-up in 6 months. 07/26/2023-- Wendy is a 53-year-old female who presents today to the office for a follow-up. mother with alzheimers stress exacerbates IC symptoms, urge. She has been doing the bladder instillations with the nursing staff. using Prelief with coffee. 2 tabs. Discussed repeat cysto/hydro. 03/27/23--Wendy is a 53-year-old female who was diagnosed with IC in 2015 and was started on Elmiron. The patient is currently on 200 mg twice a day. Co-morbidity: cervical spine condition and status post fusion of C3 and C4 in November 2016 and disc replacement between C5 and C6 in March 2019. She is has chronic pain and is prescribed Vicodin by pain management. She presents to the office for 1-month interstitial cystitis follow-up. She is still using the Elmiron 200 mg BID. 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 She states when she tried lowering the elmiron use, she had bladder pain. I prescribed hydroxyzine and she states when she increased dose from 25 to 50 mg she had numbness. She states that she has seen Dr. Myles, ophthalmology and was told that there was no retinal damage. States following IC diet. One coffee in the morning during the week. Does not consume tomatoes or citrus foods. Consumes alcohol once a week and mentions occasional worsening of bladder pain due to alcohol. she is using prelief prn, when she consumes pizza, pasta, or alcohol. Evaluation today UA: Blood: negative, leukocytes: negative. Discontinue Elmiron. Ordered liver function testing. Will start bladder instillations with heparin, lidocaine, and solumedrol with nursing staff, daily for 5 days, then bi weekly x 2, then weekly x 8 then reevaluate. FU with me in 3 months. [facility] Medical History Lumbar stenosis Pneumonia due to COVID-19 virus Hospital discharge follow-up Chronic pain of left ankle IBS (irritable bowel syndrome) Anxiety Depression Asthma Hx of flexible sigmoidoscopy COVID-19 vaccine series completed History of COVID-19 Dental abscess Dental infection Sinusitis, maxillary, chronic Acute sinusitis Diarrhea Cervical radiculopathy ASCUS (atypical squamous cells of undetermined significance) on gynecologic Papanicolaou smear complicating , antepartum Lumbar degenerative disc disease GERD (gastroesophageal reflux disease) Hypercholesterolemia Insomnia Hypertension Interstitial cystitis Degenerative disc disease, cervical Surgical History History of foot surgery Hx of cystoscopy History of surgery History of neck surgery S/P cervical discectomy H/O nasal septoplasty History of ankle surgery Status post laparoscopic surgery History of wisdom tooth extraction Family History Father PTSD (post-traumatic stress disorder) Mental health disorder Mother No problems noted. Maternal Grandmother Breast cancer Maternal Grandfather Myocardial infarction Maternal Uncle Past heart attack Skin cancer Myocardial infarction Other Substance use disorder Social History Housing: House Alcohol intake: current Comment: once a week 2 drinks Patient Tobacco Use Status: Never used Tobacco Years Smoked: quit 2009, CBD, vaping e-Cigarette/Vaping Use: Never Used Second Hand Smoke Exposure: No service: No Current occupational status: unemployed Cognitive needs: No Hearing needs: No Vision needs: Yes Review of Systems Const All systems reviewed & are unremarkable except as noted in HPI and below Reports no additional complaints Eyes Reports no additional complaints ENT Reports no additional complaints Card Reports no additional complaints Resp Reports no additional complaints GI Reports no additional complaints Reports as per HPI Musc Reports no additional complaints Skin/Breast Reports system reviewed and no additional complaints, except as documented Neuro Reports no additional complaints Psych Reports no additional complaints Endo Reports no additional complaints Kyler/Lymph Reports no additional complaints Aller/Immun Reports no additional complaints Assessment & Plan Assessment & Plan (1) Interstitial cystitis: Code(s): N30.10 - Interstitial cystitis (chronic) without hematuria Category: Medical (2) Pelvic pain: Code(s): R10.2 - Pelvic and perineal pain Category: Medical (3) Bladder pain: Code(s): R39.89 - Other symptoms and signs involving the genitourinary system Category: Medical Plan Plan - Continue gabapentin and Uribel as needed for chronic interstitial cystitis management. - Pyridium to be taken gingerly, every other day, until Uribel is available. - Schedule a six-month follow-up appointment. Medications: Changed From phenazopyridine (Pyridium) 200 mg PO Q8H PRN 30 tabs 2RF urinary pain To phenazopyridine (Pyridium) must administer with food 200 mg PO .q12h PRN 30 tabs 0RF urinary pain Patient Instructions: The patient had an opportunity to ask questions regarding treatment plan. The patient expressed understanding and agreement with the above treatment plan. The patient is aware they should contact our office by phone for worsening of their current condition or the appearance of new symptoms. Compliance is encouraged with any medications and followup testing that is ordered. It is a privilege to be allowed the opportunity to participate in the urologic care of your patient. If you have any questions or concerns regarding treatment for the above conditions please do not hesitate to contact me. The office telephone contact is [phone]. This note is constructed in part using voice recognition software. While every effort has been made to ensure accuracy automatic lathe setter errors may have been included. Yours sincerely, Carla Mcmillan MD Scribe Plan - Not visible on output: Patient was informed and verbally consented to the use of an ambient scribe for clinic note documentation during this visit. Coding Level of Care Code Est Pt Level 4 (26680) Complex EM visit Add On G2211 Diagnoses Interstitial cystitis N30.10 Pelvic pain R10.2 Bladder pain R39.89
--- OUTSIDE RECORDS SUMMARY | 2024-12-06 10:47 | XMS_ITS | Clinical Summary ---
Author Organization [facility] Address [address] [place] [address] Care Team Providers Care Metalizer Field Operation Name Role Phone Carrie Marshall Primary Care Provider [phone] Allergies No known active allergies Social History [...] series) 2045 Procedures * Due to [place] GPMESS law, this organization might not be sharing negative HIV tests. Procedure Name Priority Date/Time Associated Diagnosis Comments BASIC METABOLIC PANEL STAT 07/12/2024 1:28 PM EST from Last 3 Months or Most Recently Relevant to Health Maintenance Results * Due to [place] GPMESS law, this organization might not be sharing negative HIV tests. * (ABNORMAL) Basic Metabolic Panel (07/12/2024 1:28 PM EST) NA 143 135 - 145 mmol/L 07/12/2024 2:05 PM EST [facility] K 4.0 3.5 - 5.3 mmol/L 07/12/2024 2:05 PM EST [facility] Cl 109(H) 98 - 107 mmol/L 07/12/2024 2:05 PM EST [facility] CO2 23 22 - 32 mmol/L 07/12/2024 2:05 PM EST [facility] BUN 12 7 - 23 mg/dL 07/12/2024 2:05 PM EST [facility] Creatinine 0.84 0.50 - 1.20 mg/dL 07/12/2024 2:05 PM EST [facility] Glucose 99 65 - 99 mg/dL 07/12/2024 2:05 PM EST [facility] Calcium 9.8 8.6 - 10.5 mg/dL 07/12/2024 2:05 PM EST [facility] Anion Gap 11 5 - 15 07/12/2024 2:05 PM EST [facility] eGFR 83 >=60 mL/min/1. 73m2 07/12/2024 2:05 PM EST [facility] Comment:The estimated glomer [...] MD LAB BLOOD ORDERABLES Final Re sult [facility] [address] [id number], from Last 3 Months or Most Recently Relevant to Health Maintenance Insurance [employer]ICA[employer] Care Teams Metalizer Field Operation Relationship Specialty Start Date End Date Carrie Marshall [address] [place] [address] dr Viola Rod [place] [id number] PCP - General Internal Medicine 07/12/24
--- OUTSIDE RECORDS SUMMARY | 2024-12-06 10:47 | XMS_ITS | Encounter Summary ---
Author Organization [facility] Address [address] [place] [address] 7 [place] [address] Care Team Providers Care Railcar Switchman Name Role Phone Unavailable Primary Care Provider Unavailabl e Encounter Details Date Type Department Care Team (Latest Contact Info) Description 09/26/2018 Abstract [facility] CONVERSIONS Dental, Provider, DDS Social History Tobacco [...]
--- OUTSIDE RECORDS SUMMARY | 2024-12-06 10:47 | XMS_ITS | Encounter Summary ---
Author Organization [facility] Address [address] [place] [address] Phone Care Team Providers Care Distributed Generation Project Manager Name Role Phone Carrie Marshall MD Primary Care Provider [phone] Reason for Referral * Physical Therapy (Routine) - Closed Specialty Diagnoses / Procedures Referred By Aixa rogers Referred To Contact Physical Therapy Diagnoses Encounter for rehabilitation Interstitisal Cystitis Procedures Evaluate & Treat Maikol Harding MD Phone: tel: [facility] [address] [place] [address] Phone: tel: Referral ID Status Reason Start Date Expiration Date Visits Re quested Visits Authorized [id number] Closed 01/08/2020 05/21/2020 13 13 Encounter Details Date Type Department Care Team (Latest Contact Info) Description 12/31/2019 Transcribe Orders [facility] [address] [place] [address] Maikol Harding MD [address] [place] [phone] Encounter for rehabilitation (Primary Dx) Social History Tobacco Use Types Packs/Day Years Used Date Smoking Tobacco: Never Assessed Comments Unknown Sex and Gender Information Value Date Recorded Sex Assigned at Not on file Legal Sex Female 6:32 PM EST Gender Identity Not on file Sexual Orientation Not on file documented as of this encounter Plan of Treatment Not on file documented as of this encounter Procedures Procedure Name Priority Date/Time Associated Diagnosis Comments AMB REFERRAL TO [facility] PHYSICAL THERAPY Routine 01/23/2020 3:22 PM EDT Encounter for rehabilitation documented in this encounter Results * Ambulatory referral to [facility] Physical Therapy (01/23/2020 3:22 PM EDT) us Maikol Harding MD AMB [facility] REFERRALS Final Result documented in this encounter Visit Diagnoses Diagnosis Encounter for rehabilitation- Primary documented in this encounter Care Teams Distributed Generation Project Manager Relationship Specialty Start Date End Date Po, Carrie Martinez MD [address] [facility] [address] [place] [phone] PCP - General Internal Medicine 12/25/19 documented as of this encounter Additional Source Comments The information contained in this document represents components of the legal health record. It is not the complete legal health record.[facility]
--- OUTSIDE RECORDS SUMMARY | 2024-12-06 10:47 | XMS_ITS | Data Portability ---
Author Organization [facility] [employer] Address [address] [place] [phone] Care Team Providers Care Masticator Name Role Phone WILBER DACOSTA Referring Provider Unavailable WILBER DACOSTA Referring Provider [phone] WILBER DACOSTA Primary Care Provider Assessment Encounter [...] have clinical sites close to this area, [place] or close by major centers such as [facility] or [facility]. She understood and took some notes. [...] or not imaging that was reassuring at [facility] emergency room included head imaging the [...] one stress reaction. She did well to rib puller when she was feeling lightheaded. She [...] have clinical sites close to this area, [place] or close by major centers such as [facility] or [facility]. She understood and took some notes. [...] None recorded. Lab vitamin B12, serum 024 [facility], [address] [place] [address], [address], 4 11:16:50 folate, serum 024 blanca 1 [facility], [address] [place] [address], [address], 4 15:38:59 mma (methylma lonic acid), serum 024 [facility], [address] [place] [address], [address], 4 11:19:07 homocyste ine, serum or plasma 024 [facility], [address] [place] [address], [address], 4 11:19:12 TSH, serum or plasma - E07.[address] [facility], [address] [place] [address], [address], 4 15:39:00 T4, free, serum - E07.[address] [facility], [address] [place] [address], [address], 4 15:39:00 vitamin D, 25-hydrox y, total, serum - E55.[address] [facility], [address] [place] [address], [address], 4 15:38:59 RPR (rapid plasma reagin), serum - A53.[address] [facility], [address] [place] [address], [address], 4 15:39:00 Referral None recorded. Procedures None recorded. Surgeries None recorded. Imaging None recorded. Medication Orders None recorded. Patient TargetsNo targets recorded. Patient Instructions Encounter Date Encounter Id Patient Instructions Last Modified By Organization Details Last Modified Time 09/05/2023 [id number] Discussion acros s issues of diagnoses and management and same day associated chart review and management greater than 50% greater than 60 minutes mrossen Not available 09/05/2023 14:45:21 10/24/2023 [id number] Discussion acros s issues of diagnoses and management and same day associated chart review and management greater than 50% greater than 40 minutes mrossen Not available 10/24/2023 18:29:16 11/07/2024 [id number] Discussion acros s issues of diagnoses and [...] available Not available 09/05/2023 [id number] RxNorm Veena [facility] 4 13:09:32 Medications Name Sig [...] Updated DateTime 09/05/2023 165.1 cm 25 kg/m2 41323.86 g 12 /min Veena Am[facility] 09/05/2023 13:09:20 Social History Question Answer Notes LastModified by [facility] Details LastModified Time Tobacco Smoking Status Never Smoker [facility]/05/2023 13:11:52 What Is Your Level Of Caffeine Consumption? Moderate 1 Cup Daily Information not available 09/05/2023 What Is The Highest Grade Or Level Of School You Have Completed Or The Highest Degree You Have Received? 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 995442437 D51.0 Abnormal t hyroid hormone 884306578 R94.6 Vitamin D deficiency 347 99896 E55.9 Syphilis 83287574 A53.9 [id number] Krishna Jenkins MD [facility] [address] [place] [address] [place] [address] 10/24/2023 16:39:30 10/30/2023 15:36:01 Mild neurocognitive disorder [id number] G31.84 [id number] Krishna Jenkins MD [address] [place] [address] 11/07/2024 12:30:04 11/07/2024 13:32:07 Mild neurocognitive disorder 459409283 G31.84 Vasovagal syncope 582886 005 R55 Health Concerns Section Related Observation LastModified by Organization Detai ls LastModified Time None Recorded Concern Status LastModified by Organization Details LastModified Time None Recorded Advance Directives Directive None Recorded Payers Insurance Date Sequence Insurance Name Policy Number Policy Post Covered Member ID Post Member ID Guarantor Name 11/16/2024 1 [facility]AN (MEDICAID HMO) JOSE Shabazz [id number] Wendy Shabazz Notes Date Note Type Note [...] for her mother last week for a [employer] application. She had difficulty so that she needed to obtain guidance from an eldercare social work administrator. She thinks an earlier time she would not have needed such guidance. As an example, in 2007 she applied for medical guardianship for her mother was of her mother's of schizophrenia. She went to court, filled out forms and appeared in court all on her own, without an industrial relations commissioner.She lives with her mother and her 10-year-old [...] this is a possibility. Krishna Jenkins MD [address] [place] [address] [place], [phone], [facility] Neurology [facility] 09/05/2023 14:45:37 10/24/2023 text/html Neurology follow -up [...] for her mother last week for a [employer] application. She had difficulty so that she needed to obtain guidance from an eldercare social work administrator. She thinks an earlier time she would not have needed such guidance. As an example, in 2007 she applied for medical guardianship for her mother was of her mother's of schizophrenia. She went to court, filled out forms and appeared in court all on her own, without an industrial relations commissioner.She lives with her mother and her 10-year-old [...] this is a possibility. Krishna Jenkins MD [address] [place] [address] [place], [phone], [facility] Neurology [facility] 10/24/2023 18:29:29 11/07/2024 text/html Reconsultation f or [...] relating to her stressful situation.We reviewed the [facility] discharge summary together. The discharge summary [...] for her mother last week for a [employer] application. She had difficulty so that she needed to obtain guidance from an eldercare social work administrator. She thinks an earlier time she would not have needed such guidance. As an example, in 2007 she applied for medical guardianship for her mother was of her mother's of schizophrenia. She went to court, filled out forms and appeared in court all on her own, without an industrial relations commissioner.She lives with her mother and her 10-year-old [...] this is a possibility. Krishna Jenkins MD [address] [place] [address] [place], [phone], [facility] Neurology [facility] 11/07/2024 13:19:04 OBGyn Episode No OBEpisode recorded.
== END 2024-12-06 11:11 | disposition home or self-care (01) ==
LOC: HO.HUSH 10:25
PROVIDERS: Visit Provider Urology
DX: N30.10 Interstitial cystitis (chronic) without hematuria (principal); R10.2 Pelvic and perineal pain; R39.89 Other symptoms and signs involving the genitourinary system; Z13.9 Encounter for screening, unspecified
CPT/HCPCS: 99214; G2211

== ENCOUNTER → 2024-12-06 10:24 | Outpatient (BNVA) | payer OTHER, SELFPAY | PROVIDERS: Visit Provider Urology | DX: K21.9 Gastro-esophageal reflux disease without esophagitis (principal); R13.14 Dysphagia, pharyngoesophageal phase; K58.2 Mixed irritable bowel syndrome; R14.0 Abdominal distension (gaseous) | CPT/HCPCS: 81003; 99212 ==

== ENCOUNTER 2024-12-06 15:28 | Outpatient (AMB) | payer OTHER, SELFPAY ==
--- NOTE | 2024-12-06 15:30 | A.OFFVIS_ITS ---
Vital Signs 12/06/24 15:32 Height 5 ft 5 in Weight 150 lb BMI 25.0 BP 122/79 Blood Pressure Location Lt brachial Position Sitting Pulse 96 Pulse Oximetry (%) 98 Oxygen Delivery Method Room Air Intake Visit Reasons: GERD discuss colo/endo Intake Note: Patient 3 month follow up for GERD and Colonoscopy/EGD screening. Patient cc: nauseas due some med, abdominal pain on and off, occasionally bloating, diarrhea on and off, GERD and occasionally swallowing problems on and off. 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 Staying upright for minimum 3 hours after meals discussed with patient. Patient will start esomeprazole in the morning. Postprandial abdominal bloating as well as epigastric pain. Will check transglutaminase and lipase. Low FODMAP diet discussed with patient. List of food recommended as well as list of food to avoid given to patient. Patient will follow-up in our office in 3 months, sooner on as needed basis. Patient is agreeable to this plan and verbalizes understanding of instructions. She was given the opportunity to ask questions and all questions answered. ? Thank you for allowing me to participate in her care Orders Transglutaminase IgA Today R10.9 Lipase Today R10.9 New esomeprazole magnesium (Nexium) 40 mg PO DAILY 30 caps 3RF K21.9 Discontinued omeprazole Discontinued Reason: Doctor's Order 40 mg PO DAILY 90 days 90 caps 2RF K21.9 TODAY'S VISIT Patient is here today for follow-up and to discuss going for colonoscopy and upper endoscopy. Patient reports that she is doing better on Nexium, however she still has occasional epigastric pain with nausea, abdominal bloating postprandially and occasional loose stools after meals. Patient reports to be going under lots patient is going under lots of stress. Patient's mom is in the shelter and she feels like her care is not what she expected. Patient reports that this is giving her lots of stress what is causing her to have these symptoms. Patient also was on medication for anxiety and depression that was ca using increased in nausea and vomiting. Patient reports that medication was changed and she started to feel better. Last colonoscopy in 2019. Patient denies any issues with anesthesia in the past. No history of sleep apnea. Not on any anticoagulation medication. Patient will be receiving ketamine therapy in the next couple months for and anxiety and depression. Dose of her anesthesia might need to be adjusted depending on the timing of the procedure [facility] Medical History Lumbar stenosis Pneumonia due to COVID-19 virus Hospital discharge follow-up Chronic pain of left ankle IBS (irritable bowel syndrome) Anxiety Depression Asthma Hx of flexible sigmoidoscopy COVID-19 vaccine series completed History of COVID-19 Dental abscess Dental infection Sinusitis, maxillary, chronic Acute sinusitis Diarrhea Cervical radiculopathy ASCUS (atypical squamous cells of undetermined significance) on gynecologic Papanicolaou smear complicating , antepartum Lumbar degenerative disc disease GERD (gastroesophageal reflux disease) Hypercholesterolemia Insomnia Hypertension Interstitial cystitis Degenerative disc disease, cervical Surgical History History of foot surgery Hx of cystoscopy History of surgery History of neck surgery S/P cervical discectomy H/O nasal septoplasty History of ankle surgery Status post laparoscopic surgery History of wisdom tooth extraction Family History Father PTSD (post-traumatic stress disorder) Mental health disorder Mother No problems noted. Maternal Grandmother Breast cancer Maternal Grandfather Myocardial infarction Maternal Uncle Past heart attack Skin cancer Myocardial infarction Other Substance use disorder Social History Housing: House Alcohol intake: current Comment: once a week 2 drinks Patient Tobacco Use Status: Never used Tobacco Years Smoked: quit 2009, CBD, vaping e-Cigarette/Vaping Use: Never Used Second Hand Smoke Exposure: No service: No Current occupational status: unemployed Cognitive needs: No Hearing needs: No Vision needs: Yes Review of Systems Const Denies weight gain and Denies weight loss ENT Reports no additional complaints, Denies dysphagia and Denies odynophagia Card Reports no additional complaints Resp Reports no additional complaints GI Reports abdominal pain (epigastric), Denies belching, Denies melena, Denies bloating, Denies change in bowel habits, Denies dysphagia, Denies excessive flatus, Denies dyspepsia, Reports heartburn, Denies diarrhea, Reports loose stools (occasional), Reports nausea, Denies odynophagia and Denies vomiting Reports no additional complaints Musc Reports no additional complaints Neuro Reports no additional complaints Psych Reports no additional complaints Endo Reports no additional complaints Physical Exam Vital Signs: Last Vital Signs Pulse 96 12/06/24 15:32 BP 122/79 12/06/24 15:32 Pulse Ox 98 12/06/24 15:32 Oxygen Delivery Method Room Air 12/06/24 15:32 BMI result Body Mass Index 25.0 Const General: healthy appearing, no acute distress and well developed Nutritional Appearance: well nourished Orientation/consciousness: patient oriented x3 Resp Effort & Inspection: normal respiratory effort, able to speak in complete sentences, no tracheal deviation and symmetric chest movement Auscultation: clear to auscultation bilaterally Cardio Rate: regular rate GI Inspection: Yes normal to inspection and No distended Palpation (GI): Soft to palpation, not firm, nontender and No hepatosplenomegaly present Auscultation: normal bowel sounds General: Yes no CVA tenderness Back/Spine/Pelvis Back: no CVA tenderness Skin General skin exam: elasticity normal, turgor normal and dry skin Neuro General: patient oriented x3 Psych Appearance: grossly normal Mental Status: mental status grossly normal Results AMB Urinalysis, Automated UA Leukoctes 125 David/uL Last Edit by Dolores Mock on 12/06/24 16:37 UA Nitrite Negative Last Edit by Dolores Mock on 12/06/24 16:37 UA Urobilinogen 3.5 mg/dL Last Edit by Dolores Mock on 12/06/24 16:37 UA Protein 1 mg/dL Last Edit by Dolores Mock on 12/06/24 16:37 UA pH 6.0 Last Edit by Dolores Mock on 12/06/24 16:37 UA Blood 0 Neel/uL Last Edit by Dolores Mock on 12/06/24 16:37 UA Specific [place] 1.015 Last Edit by Dolores Mock on 12/06/24 16:37 UA Ketone Negative Last Edit by Dolores Mock on 12/06/24 16:37 UA Bilirubin 0 mg/dL Last Edit by Dolores Mock on 12/06/24 16:37 UA Glucose 0 mg/dL Last Edit by Dolores Mock on 12/06/24 16:37 Results Reviewed Results Reviewed: Laboratory Tests 08/27/24 11:20 Lipase 30 Tiss Transglutamin IgA <1.0 Assessment & Plan Assessment & Plan (1) GERD (gastroesophageal reflux disease): Code(s): K21.9 - Gastro-esophageal reflux disease without esophagitis Category: Medical Qualifiers: Esophagitis presence: without esophagitis Qualified Code(s): K21.9 - Gastro-esophageal reflux disease without esophagitis (2) Dysphagia: Code(s): R13.10 - Dysphagia, unspecified Category: Medical Qualifiers: Dysphagia type: pharyngoesophageal phase Qualified Code(s): R13.14 - Dysphagia, pharyngoesophageal phase (3) Irritable bowel syndrome: Code(s): K58.9 - Irritable bowel syndrome, unspecified Category: Medical Qualifiers: Irritable bowel syndrome type: with both diarrhea and constipation Qualified Code(s): K58.2 - Mixed irritable bowel syndrome (4) Postprandial abdominal bloating: Code(s): R14.0 - Abdominal distension (gaseous) (5) Postprandial diarrhea: Code(s): K52.9 - Noninfective gastroenteritis and colitis, unspecified Plan Continue Nexium daily. Avoid dietary triggers and late night snacking. Staying upright for minimum 3 hours after meals discussed with patient. Patient will be sent for upper endoscopy to rule out gastritis, esophagitis, duodenitis, gastric or peptic ulcer, Barretts. Patient will be sent for colonoscopy. Denies any issues with anesthesia. No history of sleep apnea. Not on any anticoagulation medication. Patient will be receiving ketamine therapy to treat her anxiety. Anesthesia needs to be aware. What to expect before during and after procedure discussed with patient. Stressed the importance of good bowel prep and clear liquid diet day before procedure. Patient will follow-up after the procedure. She will call us if she will have any GI concerning symptoms. Patient is agreeable to this plan and verbalizes understanding of instructions. She was given the opportunity to ask questions and all questions answered. Thank you for allowing me to participate in her care Medications: New bisacodyl (Dulcolax (bisacodyl)) take 4 tabs at noon the day before your colonoscopy 20 mg (4 x 5 mg) PO ONCE 4 tabs 0RF constipation 1 day Z12.11 - Encounter for screening for malignant neoplasm of colon polyethylene glycol 3350 (Miralax) As directed by gastroenterology department at [facility] 238 grams PO ONCE 238 grams 0RF Z12.11 - Encounter for screening for malignant neoplasm of colon Coding Level of Care Code Est Pt Level 4 (81750) Complex EM visit Add On G2211 Diagnoses Gastroesophageal reflux disease without esophagitis K21.9 Esophagitis presence: without esophagitis Pharyngoesophageal dysphagia R13.14 Dysphagia type: pharyngoesophageal phase Irritable bowel syndrome with both constipation and diarrhea K58.2 Irritable bowel syndrome type: with both diarrhea and constipation Postprandial abdominal bloating R14.0 Postprandial diarrhea K52.9 Time Spent (min) 40 Comment 25 minutes spent with patient and additional 15 minutes spent reviewing her records
[2024-12-06 15:32] VITALS: BP 122/79; PULSE 96; O2SAT 98; BMI 25.0
== END 2024-12-06 16:27 | disposition home or self-care (01) ==
LOC: HO.HGI 15:28
PROVIDERS: PCP Internal Medicine; Visit Provider Nurse Practitioner Family
DX: K21.9 Gastro-esophageal reflux disease without esophagitis (principal); R13.14 Dysphagia, pharyngoesophageal phase; K58.2 Mixed irritable bowel syndrome; R14.0 Abdominal distension (gaseous)
CPT/HCPCS: 99214; G2211

== ENCOUNTER 2024-12-30 12:38 | Outpatient (AMB) | payer OTHER, SELFPAY ==
--- OUTSIDE RECORDS SUMMARY | 2024-12-30 12:42 | XMS_ITS | Encounter Summary ---
Author Organization [employer] [facility] Address [address] [place] [address] [address] [place] [address] Care Team Providers Care Naphthalene Operator Name Role Phone Unavailable Primary Care Provider Unavailabl e Encounter Details Date Type Department Care Team (Latest Contact Info) Description 09/26/2018 Abstract [facility] CONVERSIONS Dental, Provider, DDS Social History [...] Care Team (Late st Contact Info) Description 12/31/2024 9:30 AM EDT Office Visit [facility] [address] [place] [address] Pan Hernandez, DMD [address] [place] [address] documented as of this encounter Visit Diagnoses Not on filedocumented in this encounter
--- OUTSIDE RECORDS SUMMARY | 2024-12-30 12:42 | XMS_ITS | Clinical Summary ---
Author Organization [facility] Address [address] [facility] [address] [place] [address] Phone Care Team Providers Care Printed Circuit Boards Laminator Name Role Phone Carrie Marshall MD Primary Care Provider [phone] Medications No known medications Active Problems No known active problems Social History Tobacco Use Types Packs/Day Years Used Date Smoking Tobacco: Never Assessed Education Answer Date Recorded Are you interested in more education? Not on tammy e 09/17/2022 Are you concerned about learning? Not on file 09/17/2022 No 09/17/2022 No 09/17/2022 Digital Access Answer Date Recorded No 10/16/2022 No 10/16/2022 Reliable internet access at home? Not on file 10/16/2022 Device with a working camera? Not on file Comments Unknown Sex and Gender Information Value Date Recorded Sex Assigned at Not on file Legal Sex Female 6:32 PM EST Gender Identity Not on file Sexual Orientation Not on file Plan of Treatment Health Maintenance Due Date Last Done Comments LIPID PANEL 1970 DEPRESSION SCREENING 1982 SMOKING Hx and SMOKELESS TOBACCO SCREENING 1983 HEPATITIS C SCREENING 02/03/1988 HIV ONE-TIME SCREENING (18-6 5 YEARS) 02/03/1988 PAP SMEAR 1991 MAMMOGRAM 2010 COLOGUARD 2015 COLONOSCOPY 2015 COLORECTAL CANCER SCREENING 2015 FIT TEST 2015 FOBT 2015 SIGMOIDOSCOPY 2015 VIRTUAL COLONOSCOPY 2015 PNEUMOCOCCAL VACCINES (50+ years) (1 of 1 - PCV) 02/03/2020 ZOSTER VACCINES (1 of 2) 02/03/2020 COVID-19 VACCINE (2 - 2023-2 5 season) 2024 08/31/2020 Adult Td,Tdap Booster 04/24/2025 04/24/2015 , 11/13/1997 HEPATITIS A VACCINES Aged Out No long er eligible based on patient's age to complete this topic HIB VACCINES Aged Out No longer eligi ble based on patient's age to complete this topic MENINGOCOCCAL VACCINES (ACWY) Aged Out No longer eligible based on patient's age to complete this topic MENINGOCOCCAL VACCINES (B) Aged Out N o longer eligible based on patient's age to complete this topic Medical Devices Not on file Insurance ACO ACO ACO ACO ACO ACO ACO ACO ACO Care Teams Printed Circuit Boards Laminator Relationship Specialty Start Date End Date Carrie Marshall MD [address] [place] [address] Drive [address] [place] [address] PCP - General Internal Medicine 12/25/19 Additional Source Comments The information contained in this document represents components of the legal health record. It is not the complete legal health record.[facility]
--- OUTSIDE RECORDS SUMMARY | 2024-12-30 12:42 | XMS_ITS | Clinical Summary ---
Author Organization [facility] Address [address] [place] [address] Care Team Providers Care Gastroenterology Professor Name Role Phone Carrie Marshall Primary Care Provider [phone] Allergies No known active allergies Social History [...] 75+ series) 2045 Procedures * Due to [place] [employer] law, this organization might not be sharing negative HIV tests. Procedure Name Priority Date/Time Associated Diagnosis Comments BASIC METABOLIC PANEL STAT 07/12/2024 1:28 PM EST from Last 3 Months or Most Recently Relevant to Health Maintenance Results * Due to [place] [employer] law, this organization might not be sharing negative HIV tests. * (ABNORMAL) Basic Metabolic Panel (07/12/2024 1:28 PM EST) NA 143 135 - 145 mmol/L 07/12/2024 2:05 PM EST [facility] K 4.0 3.5 - 5.3 mmol/L 07/12/2024 2:05 PM EST [facility] Cl 109(H) 98 - 107 mmol/L 07/12/2024 2:05 PM EST [facility] CO2 23 22 - 32 mmol/L 07/12/2024 2:05 PM EST [facility] BUN 12 7 - 23 mg/dL 07/12/2024 2:05 PM EST [facility] Creatinine 0.84 0.50 - 1.20 mg/dL 07/12/2024 2:05 PM EST [facility] Glucose 99 65 - 99 mg/dL 07/12/2024 2:05 PM EST [facility] Calcium 9.8 8.6 - 10.5 mg/dL 07/12/2024 2:05 PM EST [facility] Anion Gap 11 5 - 15 07/12/2024 2:05 PM EST [facility] eGFR 83 >=60 mL/min/1. 73m2 07/12/2024 2:05 PM EST [facility] Comment:The estimated glomer ular [...] MD LAB BLOOD ORDERABLES Final Re sult [facility] [address] [id number], from Last 3 Months or Most Recently Relevant to Health Maintenance Insurance [employer] Care Teams Gastroenterology Professor Relationship Specialty Start Date End Date Carrie Marshall [address] [place] [address] dr Viola Rod [place] [phone] PCP - General Internal Medicine 07/12/24
[2024-12-30 12:44] VITALS: BMI 25.0
--- NOTE | 2024-12-30 12:44 | A.OFFVIS_ITS ---
VS Expanded 12/30/24 12:44 Height 5 ft 5 in Weight 150 lb 5.684 oz BMI 25.0 Intake Visit Reasons: GERD/hyperlipidemia Allergies animal dander (ANIMAL HAIR) Allergy (Intermediate, Verified 12/06/24 15:30) ASTHMA, HIVES lactose (Lactose) Allergy (Mild, Verified 12/06/24 15:30) DIARRHEA pentosan polysulfate sodium (From Elmiron) Adverse Reaction (Intermediate, Verified 12/06/24 15:30) LFT elevation Nutrition Presentation Details: Pt presents for MNT for hypercholesterolemia and GERD Pt reports having earlier dinner and reports noticing less GERD symptoms also gradually working on choosing lower fat options PFSH Medical History Lumbar stenosis Pneumonia due to COVID-19 virus Hospital discharge follow-up Chronic pain of left ankle IBS (irritable bowel syndrome) Anxiety Depression Asthma Hx of flexible sigmoidoscopy COVID-19 vaccine series completed History of COVID-19 Dental abscess Dental infection Sinusitis, maxillary, chronic Acute sinusitis Diarrhea Cervical radiculopathy ASCUS (atypical squamous cells of undetermined significance) on gynecologic Papanicolaou smear complicating , antepartum Lumbar degenerative disc disease GERD (gastroesophageal reflux disease) Hypercholesterolemia Insomnia Hypertension Interstitial cystitis Degenerative disc disease, cervical Surgical History History of foot surgery Hx of cystoscopy History of surgery History of neck surgery S/P cervical discectomy H/O nasal septoplasty History of ankle surgery Status post laparoscopic surgery History of wisdom tooth extraction Family History Father PTSD (post-traumatic stress disorder) Mental health disorder Mother No problems noted. Maternal Grandmother Breast cancer Maternal Grandfather Myocardial infarction Maternal Uncle Past heart attack Skin cancer Myocardial infarction Other Substance use disorder Social History Housing: House Alcohol intake: current Comment: once a week 2 drinks Patient Tobacco Use Status: Never used Tobacco Years Smoked: quit 2009, CBD, vaping e-Cigarette/Vaping Use: Never Used Second Hand Smoke Exposure: No service: No Current occupational status: unemployed Cognitive needs: No Hearing needs: No Vision needs: Yes Assessment & Plan Assessment & Plan (1) Hypercholesterolemia: Code(s): E78.00 - Pure hypercholesterolemia, unspecified Category: Medical Plan: Wt: 70 Kg ( 12/13 ), 68 kg (01/14) Est kcal needs as per MSJ: 1600 (40% carb, 30% protein/fat) Est fluid needs as per 25-30 ml/d: 2000 Est prot per day as per 0.8-1 g/kg bw: 60- 70 Recommend fiber intake : 8-10 g per day and gradually increase to 25-28 g per day for women and 35-38 g for men or as tolerated Recommend sodium intake per day : less than 2300 mg , unless otherwise specified by your doctor Educated patient on: ( R = reviewed V = verbalizes understanding N/R = needs review N/A = not applicable * Food sources of carbohydrate, adequate serving sizes and its role in various health conditions: R * Differences between complex carbohydrates a simple carbohydrates, role of fiber in diet: R * Lean protein sources of foods: R * Differences between types of fats and role in diet (mono on saturated fat fatty acids, saturated fatty acids, trans fats): R * Food sources of sodium in salt and healthy modifications for heart health in kidney health: R V R/V * Vitamins and minerals: R * Healthy plate method concept: R * Physical activity: Benefits a precaution: R V Patient Instructions: Engage in physical activity (dance, walking, swimming, ), goal 150 minutes per week unless otherwise specified by your doctor Continue working on choosing low fat food options -see list of lean protein options Keep hydrated by having water with meals/snacks Coding Level of Care Code Nutr Indiv Subseq (81001) Diagnoses Hypercholesterolemia E78.00 Time Spent (min) 30
== END 2024-12-30 13:24 | disposition home or self-care (01) ==
LOC: HO.ENCR 12:39
PROVIDERS: PCP Internal Medicine; Visit Provider Dietitian, Registered
DX: E78.00 Pure hypercholesterolemia, unspecified (principal)

== ENCOUNTER → 2024-12-30 12:38 | Outpatient (BNVA) | payer OTHER, SELFPAY | PROVIDERS: PCP Internal Medicine; Visit Provider Dietitian, Registered | DX: K21.9 Gastro-esophageal reflux disease without esophagitis (principal); E78.00 Pure hypercholesterolemia, unspecified | CPT/HCPCS: 97803 ==

== ENCOUNTER 2025-01-27 11:02 | Outpatient (AMB) | payer OTHER, SELFPAY ==
--- NOTE | 2025-01-27 11:08 | MHC.PC.OV ---
Vital Signs 01/27/25 11:09 Height 5 ft 5 in Weight 152 lb 6 oz BMI 25.4 BP 86/60 L Blood Pressure Location Lt brachial Position Sitting Respiration 18 Pulse 74 Pulse Source Pulse Oximeter Temp 97.3 F Temp Source Temporal Artery Scan Pulse Oximetry (%) 98 Oxygen Delivery Method Room Air Intake Visit Reasons: Sinuses infection Solidworks Drafter Required: No Accompanied by: Self / Same As Patient Allergies animal dander (ANIMAL HAIR) Allergy (Intermediate, Verified 01/27/25 11:10) ASTHMA, HIVES lactose (Lactose) Allergy (Mild, Verified 01/27/25 11:10) DIARRHEA pentosan polysulfate sodium (From Elmiron) Adverse Reaction (Intermediate, Verified 01/27/25 11:10) LFT elevation Medication List - Last Reconciled 01/27/25 by Elizabeth Arevalo MD albuterol sulfate 90 mcg/actuation (Ventolin HFA) 2 puffs PO Q4-6H PRN azelastine 2 sprays intranasal BID bupropion HCl 75 mg PO DAILY 90 days bupropion HCl XL 150 mg PO DAILY cefpodoxime 200 mg PO BID 10 days cholecalciferol (vitamin D3) 50 mcg PO DAILY dextroamphetamine-amphetamine 5 mg ER (Adderall XR) 1 cap PO QAM dicyclomine 20 mg (2 x 10 mg) PO BID diphenhydramine HCl (Banophen) 50 mg PO BEDTIME PRN epinephrine 0.3 mg (0.3 mL) IM ONCE PRN escitalopram oxalate 10 mg PO DAILY esketamine (Spravato) inhale 2 sprays into each nostril 2 times per week, with 5-minute rest between use of each device intranasal SURENDRA Dr. [facility] [address] [place] [address] esomeprazole magnesium 40 mg PO DAILY fexofenadine 180 mg PO DAILY PRN 90 days fluticasone propion-salmeterol 250-50 mcg/dose (Advair Diskus) 1 inh inhalation Q12H fluticasone propionate 50 mcg/actuation 2 sprays intranasal DAILY gabapentin 100 mg PO TID hydrocodone-acetaminophen 5-325 mg 1 tab PO TID PRN 30 days ibuprofen 800 mg PO Q12H PRN lisinopril 5 mg PO DAILY loperamide (Anti-Diarrheal (loperamide)) 2 mg PO QID PRN 30 days magnesium oxide 400 mg PO DAILY menthol 5% (Cold and Hot (menthol)) 1 patch topical DAILY PRN feliceElviradeangelommgy-ylesi-oob 118-10-40.8-36 mg 1 tab PO TID montelukast 10 mg PO BEDTIME 90 days ondansetron 4 mg PO Q8H PRN phenazopyridine (Pyridium) 200 mg PO .q12h PRN polyethylene glycol 3350 (Miralax) 238 grams PO ONCE promethazine 25 mg PO Q12H PRN zolpidem 10 mg PO BEDTIME 90 days Tobacco use date assessed: 01/27/25 Dental Screening Dental Screen Date: 01/27/25 Did you have a dental visit in the last 12 months?: Yes Did you have a dental problem in the last 6 months where you did not have access to dental care?: No Was dental information given to patient?: Patient has dentist HPI HPI Comments History of Present Illness Details The patient is a 54-year-old female presenting with symptoms suggestive of sinusitis, primarily on the left side. The symptoms began over a week ago and include severe congestion and pain localized to the left side of the face. The patient reports frequent sinus infections, although she did not experience one last year. A septoplasty was performed almost 10 years ago on the left side, but the patient believes the nasal passage may have closed again. She has been using nasal rinses and sprays, but these have provided limited relief. The secretions are described as thick and yellow-brown, with significant postnasal drip. The patient has a history of GERD and IBS, which are exacerbated by antibiotics such as amoxicillin-clavulanate, leading to nausea and diarrhea. She has tried other antibiotics like Levaquin, which may have caused fewer gastrointestinal issues. The patient also has a history of anxiety, depression, ADHD, and mild lactose intolerance. [facility] Medical History Lumbar stenosis Pneumonia due to COVID-19 virus Hospital discharge follow-up Chronic pain of left ankle IBS (irritable bowel syndrome) Anxiety Depression Asthma Hx of flexible sigmoidoscopy COVID-19 vaccine series completed History of COVID-19 Dental abscess Dental infection Sinusitis, maxillary, chronic Acute sinusitis Diarrhea Cervical radiculopathy ASCUS (atypical squamous cells of undetermined significance) on gynecologic Papanicolaou smear complicating , antepartum Lumbar degenerative disc disease GERD (gastroesophageal reflux disease) Hypercholesterolemia Insomnia Hypertension Interstitial cystitis Degenerative disc disease, cervical Surgical History History of foot surgery Hx of cystoscopy History of surgery History of neck surgery S/P cervical discectomy H/O nasal septoplasty History of ankle surgery Status post laparoscopic surgery History of wisdom tooth extraction Family History Father PTSD (post-traumatic stress disorder) Mental health disorder Mother No problems noted. Maternal Grandmother Breast cancer Maternal Grandfather Myocardial infarction Maternal Uncle Past heart attack Skin cancer Myocardial infarction Other Substance use disorder Social History Housing: House Alcohol intake: current Comment: once a week 2 drinks Patient Tobacco Use Status: Never used Tobacco Years Smoked: quit 2009, CBD, vaping e-Cigarette/Vaping Use: Never Used Second Hand Smoke Exposure: No service: No Current occupational status: unemployed Cognitive needs: No Hearing needs: No Vision needs: Yes Questionnaire PHQ-9 Over the last 2 weeks, how often have you been bothered by any of the following problems? 1. Little interest or pleasure in doing things: several days 2. Feeling down, depressed, or hopeless: several days 3. Trouble falling or staying asleep, or sleeping too much: several days 4. Feeling tired or having little energy: several days 5. Poor appetite or overeating: several days 6. Feeling bad about yourself - or that you are a failure or have let yourself or your family down: not at all 7. Trouble concentrating on things, such as reading the newspaper or watching television: not at all 8. Moving or speaking so slowly that other people could have noticed. Or the opposite - being so fidgety or restless that you have been moving around a lot more than usual: not at all 9. Thoughts that you would be better off or of hurting yourself in some way: not at all Total score: 5 Source: Developed by Drs. Vineet Centeno, Eri Gaming, Brent Biswas and colleagues, with an educational mulugeta from [employer]. Thrive Questionnaire Date Thrive assessed: 01/27/25 I am a: Patient What is your living situation today?: I have a steady place to live Within the past 12 months, did the food you bought not last and you didn't have the money to get more?: I choose not to answer this question Within the past 12 months, did you worry whether your food would run out before you got money to buy more?: I choose not to answer this question Do you have trouble paying for medicines?: No Do you have trouble getting transportation to medical appointments?: No Do you have trouble paying your heating and electricity bill?: No Do you have trouble taking care of your child, family member or friend?: No Do you have trouble with day-to-day activities such as bathing, preparing meals, shopping, managing finances, etc.?: No Are you currently unemployed and looking for a job?: Yes Are you interested in more education?: No Please select the resources that you would like help with: None Currently or been in a relationship where the following occur: Controlled Emotionally THRIVE Score: 1 AUDIT C Alcohol Use Questionnaire (AUDIT-C) 1. How often do you have a drink containing alcohol?: 2-4 times a month 2. How many drinks containing alcohol do you have on a typical day when you are drinking?: 1 or 2 3. How often do you have six or more drinks on one occasion?: Never Total Score: 2 SURENDRA-7 AMB Questionnaire SURENDRA-7 Date SURENDRA - 7 assessed: 01/27/25 Feeling nervous, anxious, or on edge: 1 = Several days Not being able to stop or control worryin = Several days Worrying too much about different things: 1 = Several days Trouble relaxin = Several days Being so restless that it is hard to sit still: 0 = Not at all Becoming easily annoyed or irritable: 1 = Several days Feeling afraid as if something awful might happen: 0 = Not at all Total SURENDRA-7 score (0-4 normal; 5-9 mild; 10-14 moderate; 15-21 severe): 5 Source: Developed by Drs. Vineet Centeno, Eri Gaming, Brent Biswas and colleagues, with an educational mulugeta from [employer]. Review of Systems Const Details: - Respiratory: Reports severe congestion and postnasal drip. Denies fever or chills. - Gastrointestinal: Reports nausea and diarrhea with certain antibiotics. Reports acid reflux and IBS symptoms. - Neurological: Denies headaches or dizziness. Otherwise negative. Physical exam (Primary Care) Vital Signs: Last Vital Signs Resp 18 01/27/25 11:09 Oxygen Delivery Method Room Air 01/27/25 11:09 Tobacco/Smoking Status: Tobacco use Status Tobacco use date assessed 09/05/24 12/04/24 10:24 Patient Tobacco Use Status Never used Tobacco 12/04/24 10:24 e-Cigarette/Vaping Use Never Used 12/04/24 10:24 Thrive Assessment: Date of Thrive Assessment Date Thrive assessed 09/05/24 12/04/24 10:24 Currently or been in a relationship where the following occur: Controlled Emotionally Const Other: - Cardiovascular: Heart auscultation performed, no specific findings noted - Respiratory: Lung auscultation performed, no specific findings noted - Head and Neck: Palpation of facial areas, tenderness noted on the left side near the eyebrow - Lymphatic: Lymph node examination performed, no specific findings noted Coding Level of Care Code Est Pt Level 2 (27802) Diagnoses Acute recurrent maxillary sinusitis J01.01 Sinusitis location: maxillary Chronicity: acute Recurrence: recurrent Gastroesophageal reflux disease without esophagitis K21.9 Esophagitis presence: without esophagitis Irritable bowel syndrome with both constipation and diarrhea K58.2 Irritable bowel syndrome type: with both diarrhea and constipation Assessment & Plan Assessment & Plan (1) Sinusitis: Code(s): J32.9 - Chronic sinusitis, unspecified Category: Medical Qualifiers: Sinusitis location: maxillary Chronicity: acute Recurrence: recurrent Qualified Code(s): J01.01 - Acute recurrent maxillary sinusitis Plan: Cefpodaxime 200 mg BID. Patient reports vaginal fungal infection when taking antibiotics in the past and she was requesting a prophylactic anti-fungal. I advised patient to call the clinic in case she develops symptoms of fungal infection. (2) GERD (gastroesophageal reflux disease): Code(s): K21.9 - Gastro-esophageal reflux disease without esophagitis Category: Medical Qualifiers: Esophagitis presence: without esophagitis Qualified Code(s): K21.9 - Gastro-esophageal reflux disease without esophagitis Plan: Dietary modifications were discussed to help manage GERD symptoms, including the elimination of dairy, wheat, red meat, and sugar. (3) Irritable bowel syndrome: Code(s): K58.9 - Irritable bowel syndrome, unspecified Category: Medical Qualifiers: Irritable bowel syndrome type: with both diarrhea and constipation Qualified Code(s): K58.2 - Mixed irritable bowel syndrome Plan: Dietary changes were recommended to alleviate IBS symptoms, focusing on the elimination of potential irritants such as dairy and wheat. Plan Dietary modification discussed, including elimination of dairy, wheat, red meat, and sugar to manage gastrointestinal symptoms. Medications: New cefpodoxime must administer with a meal/food 200 mg PO BID 20 tabs 0RF 10 days
[2025-01-27 11:09] VITALS: BP 86/60; PULSE 74; RESP 18; TEMP 36.3; O2SAT 98; BMI 25.4
--- OUTSIDE RECORDS SUMMARY | 2025-01-27 13:31 | XMS_ITS | Clinical Summary ---
Author Organization [facility] Address [address] [facility] [address] [place] [address] Phone Care Team Providers Care Right Of Way Man Name Role Phone Carrie Marshall MD Primary Care Provider [phone] Medications No known medications Active Problems No [...] HEPATITIS C SCREENING 02/03/1988 HIV ONE-TIME SCREENING (18-65 YEARS) 02/03/1988 PAP SMEAR 1991 MAMMOGRAM 2010 COLOGUARD 2015 COLONOSCOPY 2015 COLORECTAL CANCER SCREENING 2015 FIT TEST 2015 FOBT 2015 SIGMOIDOSCOPY 2015 VIRTUAL COLONOSCOPY 2015 PNEUMOCOCCAL VACCINES (50+ years) (1 of 1 - PCV) 02/03/2020 ZOSTER VACCINES (1 of 2) 02/03/2020 COVID-19 VACCINE (2 - season) 2024 08/31/2020 INFLUENZA VACCINE (#1) 2024 9, 03/15/2018, 04/18/2017, Additional history exists Adult Td,Tdap Booster 04/24/2025 04/24/2015, 998 HEPATITIS A VACCINES Aged Out No long [...] ACO ACO ACO ACO ACO Care Teams Right Of Way Man Relationship Specialty Start Date End Date Carrie Marshall MD [address] [place] [address] [place] [id number] PCP - General Internal Medicine 12/25/19 Additional Source Comments The information contained in this document represents components of the legal health record. It is not the complete legal health record.[facility]
--- OUTSIDE RECORDS SUMMARY | 2025-01-27 13:31 | XMS_ITS | Encounter Summary ---
Author Organization [facility] Address [address] [place] [address] [address], [place] [address] Care Team Providers Care Marketing Operations Coordinator Name Role Phone Unavailable Primary Care Provider Unavailabl e Encounter Details Date Type Department Care Team (Latest Contact Info) Description 05/05/[address] [facility] CONVERSIONS Dental, Provider, DDS Social History [...] Care Team (Late st Contact Info) Description 02/28/2025 2:30 PM EDT Office Visit [facility] ADULT DENTAL [address] [place] [address] Coats-SalasElizabeth ayala, DDS [address] [place] [address] documented as of this encounter Visit Diagnoses Not on filedocumented in this encounter
--- OUTSIDE RECORDS SUMMARY | 2025-01-27 13:31 | XMS_ITS | Encounter Summary ---
Author Organization [facility] Address [address] [place] [address] [address] [place] [address] Care Team Providers Care Front End Technician Name Role Phone Unavailable Primary Care Provider Unavailabl e Encounter Details Date Type Department Care Team (Latest Contact Info) Description 09/26/2018 Abstract [facility] CONVERSIONS Dental, Provider, DDS Social History Tobacco [...] Description 02/28/2025 2:30 PM EDT Office Visit [facility] [address] [place] [address] Coats-SalasElizabeth ayala, DDS [address] [place] [address] documented as of this encounter Visit Diagnoses Not on filedocumented in this encounter
--- OUTSIDE RECORDS SUMMARY | 2025-01-27 13:31 | XMS_ITS | Clinical Summary ---
Author Organization [facility] Address [address] [place] [address] Care Team Providers Care Circulation Clerk Name Role Phone Carrie Marshall Primary Care Provider [phone] Allergies No known active allergies Social History [...] 020 Zoster Vaccines (1 of 2) 02/03/2020 Alcohol/Substance Use Screening 05/22/2024 Depression Screening and Follow-Up 05/22/2024 Social Drivers of Health Annual Screening 05/22/2024 COVID-19 Vaccine ( season) 2025 Influenza Vaccine (#1) 2025 Basic Metabolic Panel 07/12/2025 07/12/2024 RSV Vaccine (60+ years old a nd patients) (1 - 1-dose 75+ series) 2045 Procedures * Due to [place] [employer] law, this organization might not be sharing negative HIV tests. Procedure Name Priority Date/Time Associated Diagnosis Comments BASIC METABOLIC PANEL STAT 07/12/2024 1:28 PM EST from Last 3 Months or Most Recently Relevant to Health Maintenance Results * Due to [place] [employer] law, this organization might not be sharing negative HIV tests. * (ABNORMAL) Basic Metabolic Panel (07/12/2024 1:28 PM EST) NA 143 135 - 145 mmol/L 07/12/2024 2:05 PM EST [facility] K 4.0 3.5 - 5.3 mmol/L 07/12/2024 2:05 PM EST [facility] Cl [...] - 1.20 mg/dL 07/12/2024 2:05 PM EST [facility] Glucose 99 65 - 99 mg/dL 07/12/2024 2:05 PM EST [facility] Calcium 9.8 8.6 - 10.5 mg/dL 07/12/2024 2:05 PM EST [facility] Anion Gap 11 5 - 15 07/12/2024 2:05 PM EST [facility] eGFR 83 >=60 mL/min/1. 73m2 07/12/2024 2:05 PM EST [facility] Comment:The estimated glomer ular [...] MD LAB BLOOD ORDERABLES Final Re sult [facility] [address] [id number], from Last 3 Months or Most Recently Relevant to Health Maintenance Insurance [employer] Care Teams Circulation Clerk Relationship Specialty Start Date End Date Carrie Marshall [address] [place] [address] dr Viola Rod [place] [id number] PCP - General Internal Medicine 07/12/24
--- OUTSIDE RECORDS SUMMARY | 2025-01-27 13:31 | XMS_ITS | Encounter Summary ---
Author Organization [facility] Address [address] [place] [phone] Phone Care Team Providers Care Office Specialist Name Role Phone Carrie Marshall MD Primary Care Provider [phone] Reason for Referral * Physical Therapy (Routine) - Closed Specialty Diagnoses / Procedures Referred By Aixa rogers Referred To Contact Physical Therapy Diagnoses Encounter for rehabilitation Interstitisal Cystitis Procedures Evaluate & Treat Maikol Harding MD Phone: tel: [facility] [address] [place] [address] Phone: tel: Referral ID Status Reason Start Date Expiration Date Visits Re quested Visits Authorized [id number] Closed 01/08/2020 05/21/2020 13 13 Encounter Details Date Type Department Care Team (Latest Contact Info) Description 12/31/2019 Transcribe Orders [facility] [address] [place] [address] Maikol Harding MD [address] [place] [phone] Encounter for rehabilitation (Primary Dx) Social History [...] Date/Time Associated Diagnosis Comments AMB REFERRAL TO [facility] PHYSICAL THERAPY Routine 01/23/2020 3:22 PM EDT Encounter for rehabilitation documented in this encounter Results * Ambulatory referral to [facility] Physical Therapy (01/23/2020 3:22 PM EDT) us Maikol Harding MD AMB [facility] REFERRALS Final Result documented in this encounter Visit Diagnoses Diagnosis Encounter for rehabilitation- Primary documented in this encounter Care Teams Office Specialist Relationship Specialty Start Date End Date Po, Carrie Martinez MD 2 [facility] [address] [place] [phone] PCP - General Internal Medicine 12/25/19 documented as of this encounter Additional Source Comments The information contained in this document represents components of the legal health record. It is not the complete legal health record.[facility]
--- OUTSIDE RECORDS SUMMARY | 2025-01-27 13:31 | XMS_ITS | Clinical Summary ---
Author Organization [facility] Address [address] [facility] [address] [place] [address] Care Team Providers Care Claims Customer Service Representative Name Role Phone Unavailable Primary Care Provider [...] Diskus 250-50 MCG/ACT aerosol powder 3 Active HYDROcodone-ac etaminophen ([place]) 5-325 MG tablet TAKE ONE TABLET BY [...] 3 Active gabapentin (Neurontin) 300 MG capsule Activ e amphetamine-de xtroamphetamin e XR (Adderall XR) 5 MG 24 hr capsule Take 5 mg by mouth in the morning. Do not crush or chew. Active Sodium Fluoride (PreviDent 5000 Booster Plus) 1.1 % paste Apply 1 Application. to teeth 2 times daily. 112 g 3 5 Active amoxicillin (Amoxil) 500 MG capsule Take 1 capsule (500 mg) by mouth every 8 (eight) hours for 7 days. 21 capsule 5 01/08/20 25 Active Problems Problem Noted Date Diagnosed Date Localized gingival recession 05/11/2023 Dental plaque 05/11/2023 Encounters Date Type Department Care Team Description 12/31/2024 9:30 AM EDT Office Visit [facility] ADULT DENTAL [address] [place] [address] Pan Hernandez DMD from Last 3 Months Social History [...] Sign Reading Time Taken Comments Blood Pressure 134/88 12/31/2024 9:42 AM EDT Pulse 68 05/11/2023 8:08 AM EST Temperature - - Respiratory Rate - - Oxygen Saturation - - Inhaled Oxygen Concentration - - Weight - - Height - - Body Mass Index - - Plan of Treatment Upcoming Encounters Date Type Department Care Team (Late st Contact Info) Description 02/28/2025 2:30 PM EDT Office Visit [facility] [address] [place] [address] Pauly-Elizabeth Salas, DDS [address] [place] [address] Health Maintenance Due Date Last Done Comments [...] PCV) 04/12/2022 04/12/2021 COVID-19 Vaccine (2 - season) 2025 08/31/2020 Influenza Vaccine (#1) 2025 , 03/07/2023, 05/05/2022, Additional history exists Dental Oral Exam 04/13/2025 10/10/2024, 06/2023, 11/11/2022, Additional history exists Dental Prophylaxis 04/13/2025 10/10/2024, 1 07/07/2023, 05/11/2023, Additional history exists DTaP/Tdap/Td Vaccines (2 - Td or Tdap) 04/24/2025 04/24/2015, 11/13/1997 Dental X-Ray: Bitewings 10/11/2025 10/11/19 25, 12/22/2023, 12/17/2021, Additional history exists Tobacco Screening 12/31/2025 12/31/2024 Dental X-Ray: Full Mouth 10/12/2027 025, 04/21/2021, 08/05/2016 RSV Patients and Patients Aged 60 years or older (1 - 1-dose 75+ series) 2045 Hepatitis B Vaccines Completed 12/08/2000, 03/13/1999, 01/28/1999 Zoster Vaccines Completed 10/07/2023, 11/02/2022 HIB Vaccines Aged Out No longer eligi [...] PRESENTATION, DETAILED AND EXTENSIVE TREATMENT PLANNING Routine 12/31/2024 9:30 AM EDT 30 B(V) RESIN-BASED COMPOSITE - 1 SURF, POSTERIOR Routine 12/31/2024 9:30 AM EDT 29 B(V) RESIN-BASED COMPOSITE - 1 SURF, POSTERIOR Routine 12/31/2024 9:30 AM EDT PROPHYLAXIS - ADULT Routine 10/10/2024 3 :00 PM EDT Dental calculus Dental plaque INTRAORAL - COMPLETE SERIES OF RADIOGRAPHIC IMAGES Routine 10/10/2024 3:00 PM EDT PERIODIC ORAL EVALUATION - ESTABLISHED PATIENT Routine 10/10/2024 3:00 PM EDT from Last 3 Months or Most Recently Relevant to Health Maintenance Insurance [facility] [employer] [place]
== END 2025-01-27 11:50 | disposition home or self-care (01) ==
LOC: HO.HMCH 11:03
PROVIDERS: PCP Internal Medicine; Visit Provider Internal Medicine
DX: J01.01 Acute recurrent maxillary sinusitis (principal); K21.9 Gastro-esophageal reflux disease without esophagitis; K58.2 Mixed irritable bowel syndrome

== ENCOUNTER → 2025-01-27 11:02 | Outpatient (BNVA) | payer OTHER, SELFPAY | PROVIDERS: PCP Internal Medicine; Visit Provider Internal Medicine | DX: J01.01 Acute recurrent maxillary sinusitis (principal); K21.9 Gastro-esophageal reflux disease without esophagitis; K58.2 Mixed irritable bowel syndrome | CPT/HCPCS: 99212 ==

== ENCOUNTER 2025-02-01 11:49 | Outpatient (AMB) | payer OTHER, SELFPAY ==
--- OUTSIDE RECORDS SUMMARY | 2025-02-01 11:52 | XMS_ITS | Clinical Summary ---
Author Organization [facility] Address [address] [place] [address] Care Team Providers Care Professor Of Medicine Name Role Phone Carrie Marshall Primary Care Provider [phone] Allergies No known active allergies Social History [...] series) 2045 Procedures * Due to [place] [employer] law, this organization might not be sharing negative HIV tests. Procedure Name Priority Date/Time Associated Diagnosis Comments BASIC METABOLIC PANEL STAT 07/12/2024 1:28 PM EST from Last 3 Months or Most Recently Relevant to Health Maintenance Results * Due to [place] [employer] law, this organization might not be sharing negative HIV tests. * (ABNORMAL) Basic Metabolic Panel (07/12/2024 1:28 PM EST) NA 143 135 - 145 mmol/L 07/12/2024 2:05 PM EST [facility] K 4.0 3.5 - 5.3 mmol/L 07/12/2024 2:05 PM EST [facility] Cl 109(H) 98 - 107 mmol/L 07/12/2024 2:05 PM EST [facility] CO2 23 22 - 32 mmol/L 07/12/2024 2:05 PM EST [facility] BUN 12 7 - 23 mg/dL 07/12/2024 2:05 PM EST [facility] Creatinine 0.84 0.50 - 1.20 mg/dL 07/12/2024 2:05 PM EST [facility] Glucose 99 65 - 99 mg/dL 07/12/2024 2:05 PM EST [facility] Calcium 9.8 8.6 - 10.5 mg/dL 07/12/2024 2:05 PM EST [facility] Anion Gap 11 5 - 15 07/12/2024 2:05 PM EST [facility] eGFR 83 >=60 mL/min/1. 73m2 07/12/2024 2:05 PM EST [facility] Comment:The estimated glomer ular [...] MD LAB BLOOD ORDERABLES Final Re sult [facility] [address] [id number], from Last 3 Months or Most Recently Relevant to Health Maintenance Insurance [place] [phone] Care Teams Professor Of Medicine Relationship Specialty Start Date End Date Carrie Marshall [address] [place] [address] dr Viola Rod [id number] [id number] PCP - General Internal Medicine 07/12/24
--- OUTSIDE RECORDS SUMMARY | 2025-02-01 11:52 | XMS_ITS | Encounter Summary ---
Author Organization [facility] Address [address] [place] [phone] Phone Care Team Providers Care Vehicle Monitor Technician Name Role Phone Carrie Marshall MD Primary Care Provider [phone] Reason for Referral * Physical Therapy (Routine) - Closed Specialty Diagnoses / Procedures Referred By Aixa rogers Referred To Contact Physical Therapy Diagnoses Encounter for rehabilitation Interstitisal Cystitis Procedures Evaluate & Treat Maikol Harding MD Phone: tel: [facility] [address] [place] [address] Phone: tel: Referral ID Status Reason Start Date Expiration Date Visits Re quested Visits Authorized [id number] Closed 01/08/2020 05/21/2020 13 13 Encounter Details Date Type Department Care Team (Latest Contact Info) Description 12/31/2019 Transcribe Orders [facility] [address] [place] [address] Maikol Harding MD [address] [place] [phone] Encounter for rehabilitation (Primary Dx) Social History [...] Date/Time Associated Diagnosis Comments AMB REFERRAL TO [facility] PHYSICAL THERAPY Routine 01/23/2020 3:22 PM EDT Encounter for rehabilitation documented in this encounter Results * Ambulatory referral to [facility] Physical Therapy (01/23/2020 3:22 PM EDT) us Maikol Harding MD AMB [facility] REFERRALS Final Result documented in this encounter Visit Diagnoses Diagnosis Encounter for rehabilitation- Primary documented in this encounter Care Teams Vehicle Monitor Technician Relationship Specialty Start Date End Date Po, Carrie Martinez MD 2 [facility] [address] [place] [phone] PCP - General Internal Medicine 12/25/19 documented as of this encounter Additional Source Comments The information contained in this document represents components of the legal health record. It is not the complete legal health record.[facility]
--- OUTSIDE RECORDS SUMMARY | 2025-02-01 11:52 | XMS_ITS | Clinical Summary ---
Author Organization [facility] Address [address] [facility] [address] [place] [address] Care Team Providers Care Child And Adolescent Psychiatrist Name Role Phone Unavailable Primary Care Provider [...] MCG/ACT aerosol powder 3 Active HYDROcodone-ac etaminophen ([place]) 5-325 MG tablet TAKE ONE TABLET BY [...] Description 12/31/2024 9:30 AM EDT Office Visit [facility] ADULT DENT[facility] [address] [place] [address] Pan Hernandez DMD from Last 3 Months [...] Description 02/28/2025 2:30 PM EDT Office Visit [facility] ADULT D[facility] [address] [place] [address] Pauly-Elizabeth Salas, DDS [address] [place] [address] Health Maintenance Due Date Last Done Comments [...]
--- OUTSIDE RECORDS SUMMARY | 2025-02-01 11:52 | XMS_ITS | Encounter Summary ---
Author Organization [employer] [facility] Address [address] [place] [address] [place], [place] [address] Care Team Providers Care Regulatory Affairs Manager Name Role Phone Unavailable Primary Care Provider Unavailabl e Encounter Details Date Type Department Care Team (Latest Contact Info) Description 05/05/[address] [facility] Dental, Provider, DDS Social History [...] Description 02/28/2025 2:30 PM EDT Office Visit [facility] ADULT DENT[facility] [address] [place] [address] Coats-SalasElizabeth ayala, DDS [address] [place] [address] documented as of this encounter Visit Diagnoses Not on filedocumented in this encounter
--- OUTSIDE RECORDS SUMMARY | 2025-02-01 11:52 | XMS_ITS | Clinical Summary ---
Author Organization [facility] Address [address] [facility] [address] [place] [address] Phone Care Team Providers Care Esl Instructor Name Role Phone Carrie Marshall MD Primary Care Provider [phone] Medications No known medications Active Problems No [...] ACO ACO ACO ACO ACO Care Teams Esl Instructor Relationship Specialty Start Date End Date Carrie Marshall MD [address] [place] [address] [place] [phone] PCP - General Internal Medicine 12/25/19 Additional Source Comments The information contained in this document represents components of the legal health record. It is not the complete legal health record.[facility]
--- OUTSIDE RECORDS SUMMARY | 2025-02-01 11:52 | XMS_ITS | Encounter Summary ---
Author Organization [employer] [facility] Address [address] [place] [address] [address] [place] [address] Care Team Providers Care Band Saw Marker Name Role Phone Unavailable Primary Care Provider Unavailabl e Encounter Details Date Type Department Care Team (Latest Contact Info) Description 09/26/2018 Abstract [facility] Dental, Provider, DDS Social History [...] Description 02/28/2025 2:30 PM EDT Office Visit [facility] ADULT D[facility] [address] [place] [address] Coats-SalasElizabeth ayala, DDS [address] [place] [address] documented as of this encounter Visit Diagnoses Not on filedocumented in this encounter
[2025-02-01 12:18] VITALS: BP 120/70; PULSE 94; RESP 16; TEMP 37.1; O2SAT 98; BMI 25.8
--- NOTE | 2025-02-01 12:18 | MHC.OFFWIV ---
Intake Vital Signs 02/01/25 12:18 Height 5 ft 5 in Weight 155 lb BMI 25.8 BP 120/70 Blood Pressure Location Lt brachial Position Sitting Respiration 16 Pulse 94 Pulse Source Pulse Oximeter Temp 98.7 F Temp Source Oral Pulse Oximetry (%) 98 Oxygen Delivery Method Room Air Intake Visit Reasons: EP-Tooth ache Intake Note: Pt is here today c/o tooth ache Patient Tobacco Use Status: Never used Tobacco Allergies animal dander (ANIMAL HAIR) Allergy (Intermediate, Verified 02/01/25 12:20) ASTHMA, HIVES lactose (Lactose) Allergy (Mild, Verified 02/01/25 12:20) DIARRHEA pentosan polysulfate sodium (From [place]) Adverse Reaction (Intermediate, Verified 02/01/25 12:20) LFT elevation HPI HPI Comments History of Present Illness Details This is a 54-year-old female with a past medical history of hypertension, asthma and seasonal allergies presenting for evaluation of a left-sided sinus infection that she has had for the past 2 weeks. Patient states she was diagnosed with a left-sided dental infection over 1 month ago and between her 2 infections has been on 2 courses of amoxicillin and is currently taking cefpodoxime 200 mg twice daily for 10 days which was prescribed on Monday. Patient has been taking Excedrin and Vicodin without relief of her discomfort. She denies having any fevers, chills, eye pain, ear pain, sore throat, difficulty swallowing or shortness of breath. [facility] Medical History Lumbar stenosis Pneumonia due to COVID-19 virus Hospital discharge follow-up Chronic pain of left ankle IBS (irritable bowel syndrome) Anxiety Depression Asthma Hx of flexible sigmoidoscopy COVID-19 vaccine series completed History of COVID-19 Dental abscess Dental infection Sinusitis, maxillary, chronic Acute sinusitis Diarrhea Cervical radiculopathy ASCUS (atypical squamous cells of undetermined significance) on gynecologic Papanicolaou smear complicating , antepartum Lumbar degenerative disc disease GERD (gastroesophageal reflux disease) Hypercholesterolemia Insomnia Hypertension Interstitial cystitis Degenerative disc disease, cervical Surgical History History of foot surgery Hx of cystoscopy History of surgery History of neck surgery S/P cervical discectomy H/O nasal septoplasty History of ankle surgery Status post laparoscopic surgery History of wisdom tooth extraction Family History Father PTSD (post-traumatic stress disorder) Mental health disorder Mother No problems noted. Maternal Grandmother Breast cancer Maternal Grandfather Myocardial infarction Maternal Uncle Past heart attack Skin cancer Myocardial infarction Other Substance use disorder Social History Housing: House Alcohol intake: current Comment: once a week 2 drinks Patient Tobacco Use Status: Never used Tobacco Years Smoked: quit 2009, CBD, vaping e-Cigarette/Vaping Use: Never Used Second Hand Smoke Exposure: No service: No Current occupational status: unemployed Cognitive needs: No Hearing needs: No Vision needs: Yes Review of Systems Const All systems reviewed & are unremarkable except as noted in HPI and below Denies chills, Denies fatigue, Denies fever(s) and Denies headache(s) Eyes Reports no additional complaints ENT Reports no additional complaints, Reports dental pain (left upper dentition), Denies headache(s), Denies mouth lesions, Denies odynophagia, Reports sinus pressure, Denies sore throat and Denies throat swelling Card Reports no additional complaints and Denies dyspnea Resp Reports no additional complaints, Denies cough and Denies dyspnea GI Denies odynophagia Skin/Breast Reports system reviewed and no additional complaints, except as documented Neuro Reports no additional complaints and Denies headache(s) Psych Reports no additional complaints Endo Denies fatigue Aller/Immun Denies throat swelling Physical Exam Vital Signs: Last Vital Signs Temp 98.7 F 02/01/25 12:18 Pulse 94 02/01/25 12:18 Resp 16 02/01/25 12:18 BP 120/70 02/01/25 12:18 Pulse Ox 98 02/01/25 12:18 Oxygen Delivery Method Room Air 02/01/25 12:18 BMI result Body Mass Index 25.8 Patient is afebrile. Const General: cooperative, comfortable, no acute distress, well developed, alert, awake and Physically active; No acute distress, ill appearing, intoxicated appearing, lethargic or tired appearing Nutritional Appearance: well nourished Orientation/consciousness: patient oriented x3 and No lethargic Limitations: no limitations HEENT Head: Yes normal to inspection and Yes normocephalic Ears: hearing grossly normal bilaterally, external ears normal, TM's normal bilaterally (no bulging or erythema) and EAC's normal General nose exam: Normal external nose present Face and sinus: Yes sinus tenderness (left maxillary sinus) Mouth: Normal oral and palatal mucosa present, tongue normal, oropharynx normal, moist mucous membranes, no drooling, No mouth trauma, no muffled voice and no trismus Teeth and gingiva: abnormal dentition (large filling noted superior of L. upper incisor; no erythema/fluctuance) Throat: Yes posterior oropharynx normal and No postnasal drainage Eyes General: appearance normal, both eyes and all related structures Neck Lymphatic: no lymphadenopathy noted Skin General skin exam: no rashes or lesions noted Neuro General: patient oriented x3 Psych Appearance: grossly normal Mental Status: mental status grossly normal Insight: Good insight present (Psych) Judgement: Good judgement present (Psych) Assessment & Plan Assessment & Plan (1) Pain of maxillary sinus: Comment: Patient has pain of her left maxillary sinus however has a known underlying dental infection adjacent to her left upper incisor. Patient is currently taking antibiotic therapy and is on a regimen of Vicodin. Code(s): J34.89 - Other specified disorders of nose and nasal sinuses Plan: Patient will follow up with her dentist on Monday for further evaluation and care. No additional antibiotics or analgesia is prescribed today. Patient is educated on the upper limit of acetaminophen dosing daily. Coding Level of Care Code Est Pt Level 3 (69818) Diagnoses Pain of maxillary sinus J34.89 Time Spent (min) 25
== END 2025-02-01 12:54 | disposition home or self-care (01) ==
LOC: HO.HMCWIC 11:49
PROVIDERS: PCP Internal Medicine; Visit Provider Physician Assistant
DX: J34.89 Other specified disorders of nose and nasal sinuses (principal)

== ENCOUNTER → 2025-02-01 11:49 | Outpatient (BNVA) | payer OTHER, SELFPAY | PROVIDERS: PCP Internal Medicine; Visit Provider Physician Assistant | DX: J34.89 Other specified disorders of nose and nasal sinuses (principal); Z79.2 Long term (current) use of antibiotics | CPT/HCPCS: 99212 ==

== ENCOUNTER 2025-03-25 16:02 | Outpatient (AMB) | payer OTHER, SELFPAY ==
[2025-03-25 16:12] VITALS: BP 120/90; PULSE 103; TEMP 36.3; O2SAT 98; BMI 25.8
--- NOTE | 2025-03-25 16:12 | A.OFFPC_ITS ---
Vital Signs 03/25/25 16:12 Height 5 ft 5 in Weight 155 lb BMI 25.8 BP 120/90 H Blood Pressure Location Lt brachial Position Sitting Pulse 103 H Pulse Source Pulse Oximeter Temp 97.3 F Temp Source Temporal Artery Scan Pulse Oximetry (%) 98 Oxygen Delivery Method Room Air Intake Visit Reasons: cervical DDD, SURENDRA, cholesterol Allergies animal dander (ANIMAL HAIR) Allergy (Intermediate, Verified 03/25/25 16:16) ASTHMA, HIVES lactose (Lactose) Allergy (Mild, Verified 03/25/25 16:16) DIARRHEA pentosan polysulfate sodium (From Elmiron) Adverse Reaction (Intermediate, Verified 03/25/25 16:16) LFT elevation Medication List - Last Reconciled 03/25/25 by Carrie Conner Po, albuterol sulfate 90 mcg/actuation (Ventolin HFA) 2 puffs PO Q4-6H PRN azelastine 2 sprays intranasal BID blood pressure monitor (Blood Pressure Kit) As directed bupropion HCl 75 mg PO DAILY 90 days bupropion HCl XL 150 mg PO DAILY cholecalciferol (vitamin D3) 50 mcg PO DAILY dextroamphetamine-amphetamine 5 mg ER (Adderall XR) 1 cap PO QAM dicyclomine 20 mg (2 x 10 mg) PO BID diphenhydramine HCl (Banophen) 50 mg PO BEDTIME PRN epinephrine 0.3 mg (0.3 mL) IM ONCE PRN escitalopram oxalate 10 mg PO DAILY esketamine (Spravato) inhale 2 sprays into each nostril 2 times per week, with 5-minute rest between use of each device intranasal SURENDRA Dr. [facility] [address] [place] [address] esomeprazole magnesium 40 mg PO DAILY famotidine 20 mg PO BID fexofenadine 180 mg PO DAILY PRN 90 days fluticasone propion-salmeterol 250-50 mcg/dose (Advair Diskus) 1 inh inhalation Q12H fluticasone propionate 50 mcg/actuation 2 sprays intranasal DAILY gabapentin 100 mg PO TID hydrocodone-acetaminophen 5-325 mg 1 tab PO TID PRN 30 days ibuprofen 800 mg PO Q12H PRN lisinopril 5 mg PO DAILY loperamide (Anti-Diarrheal (loperamide)) 2 mg PO QID PRN 30 days magnesium oxide 400 mg PO DAILY menthol 5% (Cold and Hot (menthol)) 1 patch topical DAILY PRN mathewyalv-hsjaq-gwy 118-10-40.8-36 mg 1 tab PO TID montelukast 10 mg PO BEDTIME 90 days ondansetron 4 mg PO Q8H PRN phenazopyridine (Pyridium) 200 mg PO .q12h PRN polyethylene glycol 3350 (Miralax) 238 grams PO ONCE promethazine 25 mg PO Q12H PRN zolpidem 10 mg PO BEDTIME 90 days zolpidem ER 12.5 mg PO BEDTIME PRN Tobacco use date assessed: 03/25/25 Dental Screening Dental Screen Date: 03/25/25 Did you have a dental visit in the last 12 months?: Yes Did you have a dental problem in the last 6 months where you did not have access to dental care?: No Was dental information given to patient?: Patient has dentist [facility] Medical History Lumbar stenosis Pneumonia due to COVID-19 virus Hospital discharge follow-up Chronic pain of left ankle IBS (irritable bowel syndrome) Anxiety Depression Asthma Hx of flexible sigmoidoscopy COVID-19 vaccine series completed History of COVID-19 Dental abscess Dental infection Sinusitis, maxillary, chronic Acute sinusitis Diarrhea Cervical radiculopathy ASCUS (atypical squamous cells of undetermined significance) on gynecologic Papanicolaou smear complicating , antepartum Lumbar degenerative disc disease GERD (gastroesophageal reflux disease) Hypercholesterolemia Insomnia Hypertension Interstitial cystitis Degenerative disc disease, cervical Surgical History History of foot surgery Hx of cystoscopy History of surgery History of neck surgery S/P cervical discectomy H/O nasal septoplasty History of ankle surgery Status post laparoscopic surgery History of wisdom tooth extraction Family History Father PTSD (post-traumatic stress disorder) Mental health disorder Mother No problems noted. Maternal Grandmother Breast cancer Maternal Grandfather Myocardial infarction Maternal Uncle Past heart attack Skin cancer Myocardial infarction Other Substance use disorder Social History Housing: House Alcohol intake: current Comment: once a week 2 drinks Patient Tobacco Use Status: Never used Tobacco Years Smoked: quit 2009, CBD, vaping e-Cigarette/Vaping Use: Never Used Second Hand Smoke Exposure: No service: No Current occupational status: unemployed Cognitive needs: No Hearing needs: No Vision needs: Yes Questionnaire PHQ-9 Over the last 2 weeks, how often have you been bothered by any of the following problems? 1. Little interest or pleasure in doing things: several days 2. Feeling down, depressed, or hopeless: several days 3. Trouble falling or staying asleep, or sleeping too much: several days 4. Feeling tired or having little energy: several days 5. Poor appetite or overeating: several days 6. Feeling bad about yourself - or that you are a failure or have let yourself or your family down: not at all 7. Trouble concentrating on things, such as reading the newspaper or watching television: not at all 8. Moving or speaking so slowly that other people could have noticed. Or the opposite - being so fidgety or restless that you have been moving around a lot more than usual: not at all 9. Thoughts that you would be better off or of hurting yourself in some way: not at all Total score: 5 Source: Developed by Drs. Vineet Centneo, [employer], Brent Biswas and colleagues, with an educational mulugeta from [employer]. Thrive Questionnaire Date Thrive assessed: 01/27/25 I am a: Patient What is your living situation today?: I have a steady place to live Within the past 12 months, did the food you bought not last and you didn't have the money to get more?: I choose not to answer this question Within the past 12 months, did you worry whether your food would run out before you got money to buy more?: I choose not to answer this question Do you have trouble paying for medicines?: No Do you have trouble getting transportation to medical appointments?: No Do you have trouble paying your heating and electricity bill?: No Do you have trouble taking care of your child, family member or friend?: No Do you have trouble with day-to-day activities such as bathing, preparing meals, shopping, managing finances, etc.?: No Are you currently unemployed and looking for a job?: Yes Are you interested in more education?: No Please select the resources that you would like help with: None Currently or been in a relationship where the following occur: Controlled Emotionally THRIVE Score: 1 AUDIT C Alcohol Use Questionnaire (AUDIT-C) 1. How often do you have a drink containing alcohol?: 2-4 times a month 2. How many drinks containing alcohol do you have on a typical day when you are drinking?: 1 or 2 3. How often do you have six or more drinks on one occasion?: Never Total Score: 2 SURENDRA-7 AMB Questionnaire SURENDRA-7 Date SURENDRA - 7 assessed: 01/27/25 Feeling nervous, anxious, or on edge: 1 = Several days Not being able to stop or control worryin = Several days Worrying too much about different things: 1 = Several days Trouble relaxin = Several days Being so restless that it is hard to sit still: 0 = Not at all Becoming easily annoyed or irritable: 1 = Several days Feeling afraid as if something awful might happen: 0 = Not at all Total SURENDRA-7 score (0-4 normal; 5-9 mild; 10-14 moderate; 15-21 severe): 5 Source: Developed by Drs. Vineet Centeno, [employer], Brent Biswas and colleagues, with an educational mulugeta from [employer]. Physical exam (Primary Care) Vital Signs: Last Vital Signs Temp 97.3 F 03/25/25 16:12 Pulse 103 H 03/25/25 16:12 BP 120/90 H 03/25/25 16:12 Pulse Ox 98 03/25/25 16:12 Oxygen Delivery Method Room Air 03/25/25 16:12 BMI result Body Mass Index 25.8 Tobacco/Smoking Status: Tobacco use Status Tobacco use date assessed 03/25/25 03/25/25 16:20 Patient Tobacco Use Status Never used Tobacco 03/25/25 16:20 e-Cigarette/Vaping Use Never Used 03/25/25 16:20 PHQ-9: PHQ-9 Score PHQ-9: Total score 5 03/25/25 16:56 Thrive Assessment: Date of Thrive Assessment Date Thrive assessed 01/27/25 03/25/25 16:20 Currently or been in a relationship where the following occur: Controlled Emotionally Const General: alert; No acute distress Eyes Conjunctivae: conjunctivae normal Resp Auscultation: clear to auscultation bilaterally Cardio Rate: regular rate Rhythm: regular rhythm GI Inspection: Yes normal to inspection Extrem General: Yes normal to inspection and No edema Office Procedures Flu Questionnaire Does the patient have a severe egg allergy?: No Does the patient have severe life threatening allergies?: No Does the patient have a fever or illness today?: No Has the patient ever had Guillain-[place] Syndrome?: No Has the patient ever had any past reaction to a flu shot?: No Immunizations Fluarix [id number] (PF) 45 mcg (15 mcg x 3)/0.5 mL IM syringe Performing Provider: Carrie Marshall MD [facility] Administered by: Yulia Chance CMA on 03/25/25 16:56 Dose Route Admin Location Dispensed Lot Number Expiration Date NDC Specification Manager 0.5 mL IM Right Deltoid 0.5 mL [id number] 11/18/25 [id number] [employer] VIS Given Date VIS Provided VIS Publication Date 03/25/25 Single Vaccine 24 Eligibility Eligibility Date Funding Source Not [facility] Eligible 03/25/25 Private Coding Level of Care Code Est Pt Level 4 (37457) Complex EM visit Add On G2211 Diagnoses Essential hypertension I10 Hypertension type: essential hypertension Hypercholesterolemia E78.00 Gastroesophageal reflux disease without esophagitis K21.9 Esophagitis presence: without esophagitis Interstitial cystitis N30.10 Cervical post-laminectomy syndrome M96.1 Mild intermittent asthma without complication J45.20 Asthma complication type: uncomplicated Asthma persistence: intermittent Asthma severity: mild Assessment & Plan Assessment & Plan (1) Hypertension: Code(s): I10 - Essential (primary) hypertension Category: Medical Qualifiers: Hypertension type: essential hypertension Qualified Code(s): I10 - Essential (primary) hypertension Plan: Continue with blood pressure medication. Decrease salt intake and exercise patient is on lisinopril at 5 mg once a day (2) Hypercholesterolemia: Code(s): E78.00 - Pure hypercholesterolemia, unspecified Category: Medical Plan: Avoid fried foods, chicken skin, eggs, butter margarine, pastries and meat. Be it pork or beef they have a lot of cholesterol August blood work showing LDL of 150 we need to have repeated (3) GERD (gastroesophageal reflux disease): Code(s): K21.9 - Gastro-esophageal reflux disease without esophagitis Category: Medical Qualifiers: Esophagitis presence: without esophagitis Qualified Code(s): K21.9 - Gastro-esophageal reflux disease without esophagitis Plan: Avoid the foods that causes that usually spicy foods, tomato products, juices, coffee, soda and foods that your sensitive to. After eating do not lie down, allow 3-4 hours before in lie down. And keep the head of bed above 30 degrees to avoid the acid from going up. (4) Interstitial cystitis: Code(s): N30.10 - Interstitial cystitis (chronic) without hematuria Category: Medical Plan: Patient being followed up by Urology and has a schedule next week to have a procedure. (5) Cervical post-laminectomy syndrome: Code(s): M96.1 - Postlaminectomy syndrome, not elsewhere classified Category: Medical Plan: Narcotic pain meds: Is being prescribed with the understanding that these medications are potentially addictive and should be used only when absolutely necessary and must always be secured. Any remaining pills should be safely disposed off appropriately. Patient is advised that narcotics can impaired judgment and one should not drive or operate heavy machinery while taking these medications. Never share these medications with anybody and do not leave them unattended. They will not be replaced under any circumstances. (6) Asthma: Code(s): J45.909 - Unspecified asthma, uncomplicated Category: Medical Qualifiers: Asthma complication type: uncomplicated Asthma persistence: intermittent Asthma severity: mild Qualified Code(s): J45.20 - Mild intermittent asthma, uncomplicated Plan: On albuterol inhaler and Advair Plan History of Present Illness The patient is a 55-year-old female presenting for a follow-up visit for management of multiple chronic conditions. Her past medical history is significant for hypertension, hypercholesterolemia, interstitial cystitis, cervical and lumbar degenerative disc disease, GERD, asthma, and generalized anxiety disorder. In January, the patient was seen at an urgent care center for sinus problems and was also seen by a colleague for a sinus infection, for which she was prescribed an antibiotic. Around the first week of February, she experienced severe lower mid-abdominal pain, which she believes was a combination of a stress-induced bladder flare-up and her menstrual cycle. The pain was severe enough that she was taking two Vicodin every four hours. She has also experienced some anal bleeding, which she suspects may be from a cut or hemorrhoid. For hypertension, she is on lisinopril 5 mg daily but reports her diastolic blood pressure has been running high, between 80 and 90. She recently stopped taking clonidine. Regarding hypercholesterolemia, her last blood work in August showed an LDL of 150, but she has not yet had follow-up labs done. The patient has a diagnosis of mild ADD and is trying to discontinue Wellbutrin due to side effects of dry mouth, which she feels is damaging her teeth. Her psychiatric medications are managed by a nurse practitioner and a supervising psychiatrist, both of whom are leaving their practice at the end of February. For health maintenance, her last colonoscopy was in 2018, and her mammogram is up to date as of June 2024. She follows with urology for interstitial cystitis and is scheduled for a procedure in a few weeks. She was seen by gastroenterology in November and is awaiting scheduling for an EGD and colonoscopy. Health Maintenance The patient was advised to get a flu shot, which was administered in the arm. Reinforced the need for follow-up with urology and gastroenterology for pending procedures. A fasting lipid panel was ordered. Social History - Exercise: The patient participates in a one-hour dance class weekly. - Stress: The patient reports stress, which she believes may be related to her elevated blood pressure and bladder symptoms. Review of Systems - Cardiovascular: Reports elevated diastolic blood pressure. - Gastrointestinal: Reports having horrible lower-mid abdominal pain and anal bleeding. - Genitourinary: Reports bladder flare-ups and pain associated with her menstrual cycle. - ENT: Reports dry mouth causing damage to teeth. - Psychiatric: Reports symptoms of anxiety and mild ADD. - Constitutional: Reports stress. Physical Exam - Vitals: Blood pressure demonstrates an elevated diastolic value. Results - Labs (August): Blood count, electrolytes, renal function, liver function, and blood sugar were normal. - Labs (August): LDL cholesterol was elevated at 150. - Screening: Last colonoscopy was in 2018. - Screening: Mammogram is up to date as of June 2024. Plan Patient was informed and verbally consented to the use of an ambient scribe for clinic note documentation during this visit. 1. Hypertension The patient's diastolic blood pressure is elevated. The potential contribution of her stimulant ADHD medication (Adderall) to elevated blood pressure was discussed. A prescription for a home blood pressure monitor will be provided for regular monitoring. Further decisions about adjusting her blood pressure medication will be made after reviewing her home blood pressure logs. 2. Hypercholesterolemia The patient's LDL cholesterol was 150 on her last blood work in August. A repeat fasting lipid panel is needed for follow-up. 3. Interstitial Cystitis The patient will continue to follow up with urology. She is scheduled for a cystoscopy with bladder distention in the coming week. 4. Gastroesophageal Reflux Disease The patient is on esomeprazole and famotidine. Refills for her medications have been sent to the pharmacy. The patient is also pending scheduling for an EGD with gastroenterology. 5. Abdominal Pain And Anal Bleeding The patient will follow up with gastroenterology for an EGD and colonoscopy to evaluate her symptoms. 6. Attention-Deficit Disorder And Generalized Anxiety Disorder The patient is trying to discontinue Wellbutrin due to side effects. She will continue management with her psychiatric prescribers. 7. Asthma The patient continues to use an albuterol inhaler and Advair as needed. Discussion Notes I discussed the patient's elevated diastolic blood pressure. I explained that while systolic pressure represents the force when the heart pumps, the diastolic pressure reflects the pressure when the heart is relaxing and that both numbers are important. We talked about how stimulant medications for ADD can raise blood pressure, which is a concern for heart health. I have provided her with a prescription for a home blood pressure monitor and recommended she keep a log, as readings taken at home are often more accurate. We will use these readings to decide on any medication changes. I reviewed her lab work from August, noting the high LDL cholesterol of 150. I stressed the importance of getting a repeat fasting blood test to follow up on this. I mentioned that Lexapro can sometimes slightly increase cholesterol. We also discussed her upcoming flu shot, and I explained that it should be administered in the arm, not the buttock, to avoid the risk of injuring the large sciatic nerve located there. I advised her to continue following up with her specialists, including urology for her cystoscopy and gastroenterology for her EGD and colonoscopy, to address her ongoing GI and issues. Patient Instructions - Get the prescription for the blood pressure machine and take it to a medical supply store. - Monitor your blood pressure at home when you are relaxed and keep a record of the readings to bring to your next appointment. - Please get your follow-up fasting blood work done to recheck your cholesterol. - Continue to follow up with your urology and gastroenterology specialists for your scheduled procedures. - We have sent refills for your medications to the pharmacy. - Continue with your exercise, such as your dance class, as this is good for managing stress. - If your abdominal pain gets any worse, you should go to the Emergency Room. Orders: Orders Influenza [id number] Immunization Today Z23 - Encounter for immunization Medications: New blood pressure monitor (Blood Pressure Kit) As directed 1 ea 0RF I10 - Essential (primary) hypertension blood pressure monitor (Blood Pressure Kit) As directed 1 ea 0RF I10 - Essential (primary) hypertension Refilled esomeprazole magnesium 40 mg PO DAILY 30 caps 1RF K21.9 - Gastro-esophageal reflux disease without esophagitis famotidine 20 mg PO BID 180 tabs 3RF I10 - Essential (primary) hypertension hydrocodone-acetaminophen 5-325 mg 1 tab PO TID PRN 90 tabs 0RF pain 30 days M50.30 - Other cervical disc degeneration, unspecified cervical region, N30.10 - Interstitial cystitis (chronic) without hematuria
--- OUTSIDE RECORDS SUMMARY | 2025-03-25 18:25 | XMS_ITS | Encounter Summary ---
Author Organization [employer] [facility] Address [address] [place] [address] [address] [address] Care Team Providers Care Carding Machine Operator Name Role Phone Unavailable Primary Care Provider Unavailabl e Encounter Details Date Type Department Care Team (Latest Contact Info) Description 05/05/2021 Abstract [facility] CONVERSIONS Dental, Provider, DDS Social [...]
--- OUTSIDE RECORDS SUMMARY | 2025-03-25 18:25 | XMS_ITS | Encounter Summary ---
Author Organization [email or web address] [facility] Address [address] [place] [address] [address] [place] [address] Care Team Providers Care Assistant Passenger Locomotive Engineer Name Role Phone Unavailable Primary Care Provider Unavailabl e Encounter Details Date Type Department Care Team (Latest Contact Info) Description 09/26/2018 Abstract [facility] CONVERSIONS Dental, Provider, DDS Social History [...]
--- OUTSIDE RECORDS SUMMARY | 2025-03-25 18:26 | XMS_ITS | Clinical Summary ---
Author Organization [facility] Address [address] [facility] [address] [place] [id number] Phone Care Team Providers Care Special Education Classroom Aide Name Role Phone Carrie Marshall MD Primary Care Provider [phone] Medications No known medications Active Problems No [...] 02/03/2020 ZOSTER VACCINES (1 of 2) 02/03/2020 INFLUENZA VACCINE (#1) 2024 9, 03/15/2018, 04/18/2017, Additional history exists COVID-19 VACCINE (2024- season) 2025 08/31/2020 Adult Td,Tdap Booster 04/24/2025 04/24/2015, 998 RSV VACCINE (1 - 1-dose 75+ series) 2045 HEPATITIS A VACCINES Aged Out No long [...] file Insurance [employer]CO [employer] [place] [place] [address] [place] [address] [place] [address] [place] [address] ACO [facility] ACO Care Teams Special Education Classroom Aide Relationship Specialty Start Date End Date Carrie Marshall MD [address] [place] [id number] PCP - General Internal Medicine 12/25/19 Additional Source Comments The information contained in this document represents components of the legal health record. It is not the complete legal health record.[facility]
--- OUTSIDE RECORDS SUMMARY | 2025-03-25 18:26 | XMS_ITS | Clinical Summary ---
Author Organization [facility] Address [address] [place] [address] Phone Care Team Providers Care Vp Software Support Name Role Phone Carrie Marshall MD Primary Care Provider [phone] Encounters Date Type Department Care Team Description 03/07/2025 Lab Requisition [facility] [address] [place] [phone] Wilberto Prado MD Postmenopausal bleeding 03/07/2025 Lab Requisition [facility] [address] [place] [phone] Wilberto Prado MD Postmenopausal bleeding from Last 3 Months Social History Tobacco Use Types Packs/Day Years Used Date Smoking Tobacco: Never Assessed Comments Unknown Sex and Gender Information Value Date Recorded Sex Assigned at Not on file Legal Sex Female 10:56 AM EST Gender Identity Not on file Sexual Orientation Not on file Plan of Treatment Health Maintenance Due Date Last Done Comments Breast Cancer Screening 1970 Colorectal Cancer Screening: Colonoscopy 1970 DTaP,Tdap,and Td Vaccines (1 - Tdap) 1989 Hepatitis B Vaccines (1 of 3 - 19+ 3-dose series) 1989 Pneumococcal Vaccine: 50+ Ye ars (1 of 1 - PCV) 02/03/2020 Zoster Vaccines (1 of 2) 02/03/2020 Depression Screening 05/22/2024 COVID-19 Vaccine (1 - 2023-2 5 season) 2025 Influenza Vaccine (#1) 2025 HIV Screening 03/07/2025 Hepatitis C Screening 03/07/2025 Social Influencers of Health Screening 03/07/2025 Cervical Cancer Screening: P ap Smear 03/07/2028 03/07/2025 RSV Immunization Adult Patie nts (1 - 1-dose 75+ series) 2045 HIB Vaccines Aged Out No longer eligi [...] on patient's age to complete this topic MMR Vaccines Aged Out No longer eligi ble based on patient's age to complete this topic Meningococcal ACWY Vaccine Aged Out N o longer eligible based on patient's age to complete this topic Meningococcal B Vaccine Aged Out No l onger eligible based on patient's age to complete this topic RSV Immunization Patients Un shaggy 20 months Aged Out No longer eligible b ased on patient's age to complete this topic Varicella Vaccines Aged Out No longer eligible based on patient's age to complete this topic Procedures Procedure Name Priority Date/Time Associated Diagnosis Comments PAP SMEAR Routine 03/07/2025 12:00 AM EDT Postmenopausal bleeding TISSUE EXAM Routine 03/07/2025 Postmenopausal bleeding from Last 3 Months Results * Tissue Exam (03/07/2025) Final Diagnosis Endometrial biopsy: Extensive endometrial breakdown No definite endometrial hyperplasia or neoplasm identified 03/10/2025 10:36 AM EDT [facility] at 1036 EDT Comment I am unable to determine from this specimen the cause of the endometrial breakdown. 03/10/2025 10:36 AM EDT [facility]) [facility] Clinical Information PMB 03/10/2025 10:36 AM EDT [facility]) [facility] Gross Description A. Endometrium, biopsy: Labeled with the patient's name and information. Received in formalin is a 1.1 cm aggregate of irregular dark red tissue fragments which is submitted in toto in a mesh bag in one cassette, multiple pieces, x 2. ELIDA 03/10/2025 10:36 AM EDT [facility] Disclaimer Unless otherwise specified, all tissue is 10% NB formalin fixed and paraffin embedded. 03/10/2025 10:36 AM EDT [facility] Tissue Endometrial structure / Unknown 03/07/2025 03/07/2025 12:56 PM EDT us Wilberto Prado MD LAB PATHOLOGY ORDERABLES Final Result [facility] [address] [place] [address], * Pap smear (03/07/2025 12:00 AM EDT) Interpretation Negative for intraepithelial lesion or malignancy 03/19/2025 12:27 PM EDT [facility] at 1227 EDT General Categorization Negative 03/19/2025 12:27 PM [facility] Specimen Adequacy Satisfactory for evaluation, endocervical/crawford sformation zone component present 03/19/2025 12:27 PM EDT [facility] Pap Methodology Liquid Based Pap Test 03/19/2025 12:27 PM EDT [facility] Disclaimer The Pap test is a screening test which carries an inherent false negative rate. These test results should be correlated with the patient's clinical findings and history. This Pap test was processed using an automated screening system. Technical cytopathology services provided by [facility], at [address] [place] [address], [place] [address] (CLIA # [id number]/Corinne Noriega MD, Guest Services Ambassador.) 03/19/2025 12:27 PM T [facility] Console Pap Interpretation Reported 03/19/2025 12:27 PM [facility] Brushing/Spatula Cervix uteri structure / Unknown 03/07/2025 03/07/2025 2:17 PM EDT us Wilberto Prado MD LAB CYTOLOGY ORDERABLES Final Result [facility] [address] [place] [address], [place] [phone] from Last 3 Months Insurance [facility] [employer] Care Teams Vp Software Support Relationship Specialty Start Date End Date Carrie Marshall MD [address] [place] [address] Dr Barbi Lester [facility] [place] [address] PCP - General Internal Medicine 06/21/12
--- OUTSIDE RECORDS SUMMARY | 2025-03-25 18:26 | XMS_ITS | Encounter Summary ---
Author Organization [employer] Address [address] [place] [address] [address] [place] [address] Care Team Providers Care Superintendent Plant Protection Name Role Phone Unavailable Primary Care Provider Unavailabl e Reason for Visit * Reason Onset Date Comments Dr. Marques Medication clarification 02/04/2025 Encounter Details Date Type Department Care Team ([facility] st Contact Info) Description 02/04/2025 Telephone [facility] [address] [place] [address] Trent Marques DDS [address] [place] [address] Dr. Marques Medication clarification Social History Tobacco Use Types Packs/Day Years Used Date Smoking Tobacco: Never Smokeless Tobacco: Never Comments Unknown Sex and Gender Information Value Date Recorded Sex Assigned at Female 03/21/2022 10:19 AM EDT Legal Sex Female 10:19 AM EDT Gender Identity Female 03/21/2022 10:19 AM EDT Sexual Orientation Straight 03/23/2022 4: 16 PM EDT Sexual Orientation Don't know 03/23/2022 4: 16 PM EDT documented as of this encounter Miscellaneous Notes * Telephone Encounter - Viktoriya Ribeiro - 02/04/2025 1:21 PM EDT [facility] called stating that script for Oxycodone with Acetaminophen was sent to pharmacy. Patient is also taking Hydrocodone with acetaminophen scripted by another provider. Pharmacy looking to clarify if patient is to take both scripts. Please reach out to pharmacy [phone]. documented in this encounter Plan of Treatment Not on file documented as of this encounter Visit Diagnoses Not on filedocumented in this encounter
--- OUTSIDE RECORDS SUMMARY | 2025-03-25 18:26 | XMS_ITS | Data Portability ---
Author Organization [facility], [employer] Address [address] [place] [phone] Care Team Providers Care Residential Mental Health Worker Name Role Phone WILBER DACOSTA Referring Provider [...] validate her worry about getting Alzheimer's disease r esearch has shown that it is the most scary disease across the [place] population of those greater than 50 years old. Her fear is heightened by her mother's dementia and the dementia of her grandmother and her grandmother sister. There is symptoms all emerged at a much later date than the patient's age 5 3. Metabolic dysregulation may cause cognitive slowing and we agree that she will do that blood work. She will follow-up to talk about the results. She mentions other neurological symptoms n kenzie pain, left shoulder and hip pain. I tell her that the only thing that I might be able to do for these is physical therapy. She notes that she is under care of of pain management for her pain. I tell her I might not be able to do much more. She understands. DANAE Shabazz ([facility] September 05, 2023 Laboratories four metabolic dysregulation [...] to this area, [place] or close by select specialty hospital such as [place] or [facility]. She understood and took some [...] she has been left ankle eversion weakness s he has attributed to tendon transfer [...] validate her worry about getting Alzheimer's disease r esearch has shown that it is the most scary disease across the [place] population of those greater than 50 years old. Her fear is heightened by her mother's dementia and the dementia of her grandmother and her grandmother sister. There is symptoms all emerged at a much later date than the patient's age 5 3. Metabolic dysregulation may cause cognitive slowing and we agree that she will do that blood work. She will follow-up to talk about the results. She mentions other neurological symptoms n kenzie pain, left shoulder and hip [...] or not imaging that was reassuring at [facility] emergency room included head imaging t he patient does not remember). I reassured her [...] one stress reaction. She did well to extract puller when she was feeling lightheaded. She [...] or close by major centers such as [place] or [facility]. She understood and took some [...] she has been left ankle eversion weakness s he has attributed to tendon transfer [...] validate her worry about getting Alzheimer's disease r esearch has shown that it is the most scary disease across the [place] population of those greater than 50 years old. Her fear is heightened by her mother's dementia and the dementia of her grandmother and her grandmother sister. There is symptoms all emerged at a much later date than the patient's age 5 3. Metabolic dysregulation may cause cognitive slowing and we agree that she will do that blood work. She will follow-up to talk about the results. She mentions other neurological symptoms n kenzie pain, left shoulder and hip [...] None recorded. Lab vitamin B12, serum 024 [facility], [address] [place] [address], [address], 4 11:16:50 folate, serum 024 blanca 1 [facility], 2 [facility], [place], [address], 4 15:38:59 mma (methylma lonic acid), serum 024 [facility], [address] [place] [address], [address], 4 11:19:07 homocyste ine, serum or plasma 024 [facility], [address] [place] [address], [address], 4 11:19:12 TSH, serum or plasma - E07.9 024 [facility] 1 [facility], [address] [place] [address], [address], 4 15:39:00 T4, free, serum - E07.9 024 [facility] 1 [facility], [address] [place] [address], [address], 4 15:39:00 vitamin D, 25-hydrox y, total, serum - E55.9 024 [facility] 1 [facility], [address] [place] [address], [address], 4 15:38:59 RPR (rapid plasma reagin), serum - A53.9 024 [facility] 1 [facility], [address] [place] [address], [address], 4 15:39:00 Referral None recorded. Procedures None recorded. Surgeries None recorded. Imaging None recorded. Medication Orders None recorded. Patient TargetsNo targets recorded. Patient Instructions Encounter Date Encounter Id Patient Instructions Last Modified By Organization Details Last Modified Time 09/05/2023 [id number] Discussion acros s issues of diagnoses and management and same day associated chart review and management greater than 50% greater than 60 minutes mrossen Not available 09/05/2023 14:45:21 10/24/2023 [id number] Discussion acros s issues of diagnoses and management and same day associated chart review and management greater than 50% greater than 40 minutes mrossen Not available 10/24/2023 18:29:16 11/07/2024 [id number] Discussion acros s issues of diagnoses and [...] Not available 09/05/2023 [id number] RxNorm Veena Cisneros [facility] Neurology [facility] 4 13:09:32 Medications Name Sig Start Date [...] Updated DateTime 09/05/2023 165.1 cm 25 kg/m2 69414.86 g 12 /min Veena Cisneros [facility] 09/05/2023 13:09:20 Social History Question Answer Notes LastModified by Organizat ion Details LastModified Time Tobacco Smoking Status Never Smoker Veena guillen [facility] 09/05/2023 13:11:52 What Is Your Level Of Caffeine Consumption? Moderate 1 Cup Daily Information not available 09/05/2023 What Is The Highest Grade Or Level Of School You Have Completed Or The Highest Degree You Have Received? 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 738960175 D51.0 Abnormal t hyroid hormone 362020288 R94.6 Vitamin D deficiency 347 71055 E55.9 Syphilis 28302345 A53.9 [id number] Krishna Jenkins MD [facility] [address] [place] [address] [place] [phone] 10/24/2023 16:39:30 10/30/2023 15:36:01 Mild neurocognitive disorder 203437776 G31.84 [id number] Krishna Jenkins MD [facility] [address] [place] [address] [place] [address] 11/07/2024 12:30:04 11/07/2024 13:32:07 Mild neurocognitive disorder 927733938 G31.84 Vasovagal syncope 570783 005 R55 466047 Health Concerns Section Related Observation LastModified by Organization Detai ls LastModified Time None Recorded Concern Status LastModified by Organization Details LastModified Time None Recorded Advance Directives Directive None Recorded Payers Insurance Date Sequence Insurance Name Policy Number Policy Post Covered Member ID Psot Member ID Guarantor Name 11/16/2024 1 [facility] (MEDICAID HMO) JOSE Shabazz [id number] Wendy Shabazz Notes Date Note Type Note [...] for her mother last week for a Transmit application. She had difficulty so that she needed to obtain guidance from an eldercare licensed clinical social worker. She thinks an earlier time she would not have needed such guidance. As an example, in 2007 she applied for medical guardianship for her mother was of her mother's of schizophrenia. She went to court, filled out forms and appeared in court all on her own, without an assistant county attorney.She lives with her mother and her [...] since she has started depending on GPS f or the past 5 to 10 [...] this is a possibility. Krishna Jenkins MD [address] [place] [address] [place], [phone], [facility] Neurology [facility] 09/05/2023 14:45:37 10/24/2023 text/html Neurology follow-up of concern about her memory function. Past [...] for her mother last week for a Transmit application. She had difficulty so that she needed to obtain guidance from an eldercare licensed clinical social worker. She thinks an earlier time she would not have needed such guidance. As an example, in 2007 she applied for medical guardianship for her mother was of her mother's of schizophrenia. She went to court, filled out forms and appeared in court all on her own, without an assistant county attorney.She lives with her mother and her [...] since she has started depending on GPS f or the past 5 to 10 [...] this is a possibility. Krishna Jenkins MD [address] [place] [address] [place], [address], [facility] Neurology [facility] 10/24/2023 18:29:29 11/07/2024 text/html Reconsultation for an event of almost fainting, context similar [...] She explains:They had just visited her mother h er daughter's grandmother. She is in long-term care [...] relating to her stressful situation.We reviewed the [facility] discharge summary together. The discharge summary [...] for her mother last week for a Transmit application. She had difficulty so that she needed to obtain guidance from an eldercare licensed clinical social worker. She thinks an earlier time she would not have needed such guidance. As an example, in 2007 she applied for medical guardianship for her mother was of her mother's of schizophrenia. She went to court, filled out forms and appeared in court all on her own, without an assistant county attorney.She lives with her mother and her [...] since she has started depending on GPS f or the past 5 to 10 [...] this is a possibility. Krishna Jenkins MD [address] [place] [address] [place], [address], [facility] Neurology [facility] 11/07/2024 13:19:04 OBGyn Episode No OBEpisode recorded.
--- OUTSIDE RECORDS SUMMARY | 2025-03-25 18:26 | XMS_ITS | Encounter Summary ---
Author Organization [facility] Address [address] [place] [address] Phone Care Team Providers Care Insurance Rater Name Role Phone Carrie Marshall MD Primary Care Provider [phone] Reason for Referral * Physical Therapy (Routine) - Closed Specialty Diagnoses / Procedures Referred By Aixa rogers Referred To Contact Physical Therapy Diagnoses Encounter for rehabilitation Interstitisal Cystitis Procedures Evaluate & Treat Maikol Harding MD Phone: tel: [facility] [address] [place] [address] Phone: tel: Referral ID Status Reason Start Date Expiration Date Visits Re quested Visits Authorized [id number] Closed 01/08/2020 05/21/2020 13 13 Encounter Details Date Type Department Care Team (Latest Contact Info) Description 12/31/2019 Transcribe Orders [facility] [address] [place] [address] Maikol Harding MD [address] [place] [phone] Encounter for rehabilitation (Primary Dx) Social History [...] Date/Time Associated Diagnosis Comments AMB REFERRAL TO [facility] PHYSICAL THERAPY Routine 01/23/2020 3:22 PM EDT Encounter for rehabilitation documented in this encounter Results * Ambulatory referral to [facility] Physical Therapy (01/23/2020 3:22 PM EDT) us Maikol Harding MD AMB [facility] REFERRALS Final Result documented in this encounter Visit Diagnoses Diagnosis Encounter for rehabilitation- Primary documented in this encounter Care Teams Insurance Rater Relationship Specialty Start Date End Date Po, Carrie Martinez MD 2 [facility] [address] [place] [phone] PCP - General Internal Medicine 12/25/19 documented as of this encounter Additional Source Comments The information contained in this document represents components of the legal health record. It is not the complete legal health record.[facility]
--- OUTSIDE RECORDS SUMMARY | 2025-03-25 18:26 | XMS_ITS | Encounter Summary ---
Author Organization [facility] Address [address] [place] [address] Care Team Providers Care Sewing Room Supervisor Name Role Phone Carrie Marshall MD Primary Care Provider [phone] Encounter Details Date Type Department Care Team (Latest Contact Info) Description 03/07/2025 Lab Requisition [facility] - Main Lab [address] [place] [phone] Wilberto Prado MD [address] [phone] Postmenopausal bleeding Social History Tobacco Use Types Packs/Day Years [...] Routine 03/07/2025 12:00 AM EDT Postmenopausal bleeding documented in this encounter Results * Pap smear (03/07/2025 12:00 AM EDT) Interpretation Negative for intraepithelial lesion or malignancy 03/19/2025 12:27 PM EDT [facility]) [facility] at 1227 EDT General Categorization Negative 03/19/2025 12:27 PM EDT [facility] Specimen Adequacy Satisfactory for evaluation, endocervical/crawford sformation zone component present 03/19/2025 12:27 PM EDT [facility] Pap Methodology Liquid Based Pap Test 03/19/2025 12:27 PM EDT [facility] Disclaimer The Pap test is a screening test which carries an inherent false negative rate. These test results should be correlated with the patient's clinical findings and history. This Pap test was processed using an automated screening system. Technical cytopathology services provided by [facility], at [address] [place] [address] (CLIA # [id number]/Corinne Noriega MD, Sack Filler.) 03/19/2025 12:27 PM EDT [facility] Console Pap Interpretation Reported 03/19/2025 12:27 PM EDT [facility] Brushing/Spatula Cervix uteri structure / Unknown 03/07/2025 03/07/2025 2:17 PM EDT us Wilberto Prado MD LAB CYTOLOGY ORDERABLES Final Result [facility] [address] [place] [address], documented in this encounter Visit Diagnoses Diagnosis Postmenopausal bleeding documented in this encounter Care Teams Sewing Room Supervisor Relationship Specialty Start Date End Date Carrie Marshall MD [address] [place] [address] [address] [facility] [place] [address] PCP - General Internal Medicine 06/21/12 documented as of this encounter
--- OUTSIDE RECORDS SUMMARY | 2025-03-25 18:26 | XMS_ITS | Encounter Summary ---
Author Organization [facility] Address [address] [place] [address] Care Team Providers Care Operators School Manager Name Role Phone Carrie Marshall MD Primary Care Provider [phone] Encounter Details Date Type Department Care Team (Latest Contact Info) Description 03/07/2025 Lab Requisition [facility] - Main Lab [address] [place] [phone] Wilberto Prdao MD [address] [phone] Postmenopausal bleeding Social History Tobacco Use Types [...] Procedure Name Priority Date/Time Associated Diagnosis Comments TISSUE EXAM Routine 03/07/2025 Postmenopausal bleeding documented in this encounter Results * Tissue Exam (03/07/2025) Final Diagnosis Endometrial biopsy: Extensive endometrial breakdown No definite endometrial hyperplasia or neoplasm identified 03/10/2025 10:36 AM EDT [facility]) [facility] at 1036 EDT Comment I am unable to determine from this specimen the cause of the endometrial breakdown. 03/10/2025 10:36 AM EDT [facility] HOSPITAL LAB Clinical Information PMB 03/10/2025 10:36 AM EDT [facility] Gross Description A. Endometrium, biopsy: Labeled with the patient's name and information. Received in formalin is a 1.1 cm aggregate of irregular dark red tissue fragments which is submitted in toto in a mesh bag in one cassette, multiple pieces, x 2. ELIDA 03/10/2025 10:36 AM EDT [facility] Disclaimer Unless otherwise specified, all tissue is 10% NB formalin fixed and paraffin embedded. 03/10/2025 10:36 AM EDT [facility] Tissue Endometrial structure / Unknown 03/07/2025 03/07/2025 12:56 PM EDT us Wilberto Prado MD LAB PATHOLOGY ORDERABLES Final Result [facility] [address] [place] [address], documented in this encounter Visit Diagnoses Diagnosis Postmenopausal bleeding documented in this encounter Care Teams Operators School Manager Relationship Specialty Start Date End Date Carrie Marshall MD [address] [place] [address] Dr [address] [facility] [place] [address] PCP - General Internal Medicine 06/21/12 documented as of this encounter
--- OUTSIDE RECORDS SUMMARY | 2025-03-25 18:26 | XMS_ITS | Clinical Summary ---
Author Organization [facility] Address [address] [place] [address] Care Team Providers Care Assignment Officer Name Role Phone Carrie Marshall Primary Care Provider [phone] Allergies No known active allergies Social History [...] 75+ series) 2045 Procedures * Due to [place] [employer] law, this organization might not be sharing negative HIV tests. Procedure Name Priority Date/Time Associated Diagnosis Comments BASIC METABOLIC PANEL STAT 07/12/2024 1:28 PM EST from Last 3 Months or Most Recently Relevant to Health Maintenance Results * Due to [place] [employer] law, this organization might not be sharing negative HIV tests. * (ABNORMAL) Basic Metabolic Panel (07/12/2024 1:28 PM EST) NA 143 135 - 145 mmol/L 07/12/2024 2:05 PM EST [facility] K 4.0 [...] - 1.20 mg/dL 07/12/2024 2:05 PM EST [facility] Glucose 99 65 - 99 mg/dL 07/12/2024 2:05 PM EST [facility] Calcium 9.8 8.6 - 10.5 mg/dL 07/12/2024 2:05 PM EST [facility] Anion Gap 11 5 - 15 07/12/2024 2:05 PM EST [facility] eGFR 83 >=60 mL/min/1. 73m2 07/12/2024 2:05 PM EST [facility] Comment:The estimated glomer [...] MD LAB BLOOD ORDERABLES Final Re sult [facility] [address] [place] [address], from Last 3 Months or Most Recently Relevant to Health Maintenance Insurance [employer] Care Teams Assignment Officer Relationship Specialty Start Date End Date Carrie Marshall [address] [place] [address] [place] [address] PCP - General Internal Medicine 2/21/25
--- OUTSIDE RECORDS SUMMARY | 2025-03-25 18:26 | XMS_ITS | Clinical Summary ---
Author Organization [facility] Address [address] [facility] [address] [place] [address] Care Team Providers Care Coal Or Ore Controller Name Role Phone Unavailable Primary Care Provider [...] MCG/ACT aerosol powder 3 Active HYDROcodone-fabrice taminophen ([place]) 5-325 MG tablet TAKE ONE TABLET BY [...] Active gabapentin (Neurontin) 300 MG capsule Active amphetamine-dex troamphetamine XR (Adderall XR) 5 MG 24 hr capsule Take 5 mg by mouth in the morning. Do not crush or chew. Active Sodium Fluoride (PreviDent 5000 Booster Plus) 1.1 % paste Apply 1 Application. to teeth 2 times daily. 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 Postlaminectomy syndrome of cervical region 01/20 Somatization disorder 02/06/2025 Strain of neck muscle 02/06/2025 Localized gingival recession 05/11/2023 Dental plaque 05/11/2023 Anxiety state 01/14/2006 Depressive disorder 01/14/2006 Encounters Date Type Department Care Team Description 02/06/2025 9:00 AM EDT Office Visit [facility] [address] [place] [address] [place] ElizabethCANDY Necrosis of dental pulp (Primary Dx); Dental root caries 02/04/2025 11:30 AM EDT Office Visit [facility] [address] [place] [address] Trent Marques DDS Tooth pain (Primary Dx) 02/04/2025 Telephone [facility] [address] [place], [place] [phone] Trent Marques DDS Dr. Challa Medication clarification 12/31/2024 9:30 AM EDT Office Visit [facility] [address] [place] [address] Pan Hernandez DMD from Last 3 Months [...] Sign Reading Time Taken Comments Blood Pressure 140/82 02/06/2025 9:18 AM EDT Pulse 68 05/11/2023 8:08 AM [...] PCV) 04/12/2022 04/12/2021 COVID-19 Vaccine (2 - 2024- season) 2025 08/31/2020 Influenza Vaccine (#1) 2025 , 03/07/2023, 05/05/2022, Additional history exists Dental Oral Exam 04/13/2025 10/10/2024, 06/2023, 11/11/2022, Additional history exists Dental Prophylaxis 04/13/2025 10/10/2024, 1 07/07/2023, 05/11/2023, Additional history exists DTaP/Tdap/Td Vaccines (2 - Td or Tdap) 04/24/2025 04/24/2015, 11/13/1997 Dental X-Ray: Bitewings 10/11/2025 10/11/19 25, 12/22/2023, 12/17/2021, Additional history exists Tobacco Screening 02/06/2026 02/06/2025 Dental X-Ray: Full Mouth 10/12/2027 025, 04/21/2021, [...] PRESENTATION, DETAILED AND EXTENSIVE TREATMENT PLANNING Routine 02/06/2025 9:00 AM EDT 11 ENDODONTIC THERAPY, ANTERIOR TOOTH Routine 02/06/2025 9:00 AM EDT INTRAORAL - PERIAPICAL FIRST RADIOGRAPHIC IMAGE Routine 02/04/2025 11:30 AM EDT CASE PRESENTATION, DETAILED AND EXTENSIVE TREATMENT PLANNING Routine 02/04/2025 11:30 AM EDT 11 PALLIATIVE (EMERGENCY) TREATMENT OF DENTAL PAIN - MINOR PROCEDURE Routine 02/04/2025 11:30 AM EDT CASE PRESENTATION, DETAILED AND EXTENSIVE TREATMENT PLANNING [...] Most Recently Relevant to Health Maintenance Insurance [facility] MEDICAID STAND ADULT
== END 2025-03-25 17:13 | disposition home or self-care (01) ==
LOC: HO.HMCH 16:03
PROVIDERS: Visit Provider Internal Medicine
DX: I10 Essential (primary) hypertension (principal); E78.00 Pure hypercholesterolemia, unspecified; K21.9 Gastro-esophageal reflux disease without esophagitis; N30.10 Interstitial cystitis (chronic) without hematuria; M96.1 Postlaminectomy syndrome, not elsewhere classified; J45.20 Mild intermittent asthma, uncomplicated; Z23 Encounter for immunization

== ENCOUNTER → 2025-03-25 16:02 | Outpatient (BNVA) | payer OTHER, SELFPAY | PROVIDERS: Visit Provider Internal Medicine | DX: I10 Essential (primary) hypertension (principal); E78.00 Pure hypercholesterolemia, unspecified; K21.9 Gastro-esophageal reflux disease without esophagitis; N30.10 Interstitial cystitis (chronic) without hematuria; M96.1 Postlaminectomy syndrome, not elsewhere classified; J45.20 Mild intermittent asthma, uncomplicated; R10.9 Unspecified abdominal pain; K62.5 Hemorrhage of anus and rectum; F90.9 Attention-deficit hyperactivity disorder, unspecified type; F41.1 Generalized anxiety disorder; Z23 Encounter for immunization | CPT/HCPCS: 90471; 90656; 99212 ==

== ENCOUNTER 2025-04-01 06:11 | Day surgery (SDC) | payer OTHER, SELFPAY ==
[2025-03-28 13:13] VITALS: BMI 25.8
--- NOTE | 2025-03-31 14:02 | HO.ANESPROP2 ---
Documented by User: Lizz Adam NP 03/31/25 14:03 HPI - Anesthesia Eval Consult details Narrative: 55yo F for Cystoscopy Hydrodistention of Bladder s/p same 10/2024 with GA-LMA 4 PMFSH Active Problems Active Problems: All Active Problems Pain of maxillary sinus (Acute) Breast pain, right (Acute) Sore throat (Acute) Near syncope (Acute) Breast cancer screening by mammogram (Acute) Chronic neck and back pain (Acute) Myofascial muscle pain (Acute) Lumbosacral spondylosis (Acute) Cervical post-laminectomy syndrome (Acute) Right hip pain (Acute) Memory loss (Acute) Pelvic pain (Acute) Acquired claw toe of left foot (Acute) Vision changes (Acute) Sinusitis (Acute) Upper respiratory tract infection (Acute) Annual physical exam (Acute) Generalized anxiety disorder (Acute) Irritable bowel syndrome (Acute) Left calf atrophy (Acute) Dysphagia (Acute) Asthma (Acute) Chronic pain of left ankle (Acute) Cervical radiculopathy (Acute) Lumbar degenerative disc disease (Acute) GERD (gastroesophageal reflux disease) (Acute) Hypercholesterolemia (Acute) Hypertension (Acute) Interstitial cystitis (Acute) Degenerative disc disease, cervical (Acute) Past Medical History Medical History Lumbar stenosis Pneumonia due to COVID-19 virus Hospital discharge follow-up Chronic pain of left ankle IBS (irritable bowel syndrome) Anxiety Depression Asthma Hx of flexible sigmoidoscopy COVID-19 vaccine series completed History of COVID-19 Dental abscess Dental infection Sinusitis, maxillary, chronic Acute sinusitis Diarrhea Cervical radiculopathy ASCUS (atypical squamous cells of undetermined significance) on gynecologic Papanicolaou smear complicating , antepartum Lumbar degenerative disc disease GERD (gastroesophageal reflux disease) Hypercholesterolemia Insomnia Hypertension Interstitial cystitis Degenerative disc disease, cervical Family History Family History Father PTSD (post-traumatic stress disorder) Mental health disorder Mother No problems noted. Maternal Grandmother Breast cancer Maternal Grandfather Myocardial infarction Maternal Uncle Past heart attack Skin cancer Myocardial infarction Other Substance use disorder Family history of problems with anesthesia: No Surgical History Surgical History History of foot surgery Hx of cystoscopy (11/12/24) History of surgery History of neck surgery S/P cervical discectomy H/O nasal septoplasty History of ankle surgery Status post laparoscopic surgery History of wisdom tooth extraction History of Problems with Anesthesia: Yes (nauseous post op) Social History Social History Housing: House Are you a primary inspector health care facilities to a significant other at home: No Do you presently have visiting nurse or other home services: No Alcohol intake: current Comment: once a week 2 drinks Patient Tobacco Use Status: Never used Tobacco Years Smoked: quit 2009, CBD, vaping e-Cigarette/Vaping Use: Never Used Second Hand Smoke Exposure: No Have you been hit, kicked, punched, or otherwise hurt by someone within the past year? If so, by whom?: No Are you DNR?: No Advance Directives: No Advance Directives Information Provided: Yes service: No Current occupational status: unemployed Cognitive needs: No Hearing needs: No Vision needs: Yes Meds Allergies Allergy/AdvReac Type Severity Reaction Status Date / Time animal dander (ANIMAL HAIR) Allergy Intermediate ASTHMA, Verified 04/01/25 06:45 HIVES lactose (Lactose) Allergy Mild DIARRHEA Verified 04/01/25 06:45 pentosan polysulfate sodium AdvReac Intermediate LFT Verified 04/01/25 06:45 (From [place]) elevation Home Medications ?Medication ?Instructions ?Recorded ?Confirmed ?Last Taken ?Type azelastine 137 mcg (0.1 %) nasal 2 spray intranasal BID 07/29/21 03/28/25 Unknown History spray dextroamphetamine-amphetamine ER 5 1 cap PO QAM 08/27/24 03/28/25 Unknown History mg 24hr capsule,extend release (Adderall XR) zolpidem 12.5 mg tablet,extended 12.5 mg PO BEDTIME PRN Insomnia 03/25/25 03/28/25 Unknown History release,multiphase Exam Height,Weight and Vital Signs: Height 5 ft 5 in Weight 70.307 kg Assessment and Plan Assessment Anesthesia Assessment: Chart Reviewed Final Anesthetic Review Family History of Problems with Anesthesia: No History of Problems with Anesthesia: Yes (nauseous post op) Documented by User: Renetta Gould MD 04/01/25 07:20 [facility] Past Medical History Medical History Lumbar stenosis Pneumonia due to COVID-19 virus Hospital discharge follow-up Chronic pain of left ankle IBS (irritable bowel syndrome) Anxiety Depression Asthma Hx of flexible sigmoidoscopy COVID-19 vaccine series completed History of COVID-19 Dental abscess Dental infection Sinusitis, maxillary, chronic Acute sinusitis Diarrhea Cervical radiculopathy ASCUS (atypical squamous cells of undetermined significance) on gynecologic Papanicolaou smear complicating , antepartum Lumbar degenerative disc disease GERD (gastroesophageal reflux disease) Hypercholesterolemia Insomnia Hypertension Interstitial cystitis Degenerative disc disease, cervical Family History Family History Father PTSD (post-traumatic stress disorder) Mental health disorder Mother No problems noted. Maternal Grandmother Breast cancer Maternal Grandfather Myocardial infarction Maternal Uncle Past heart attack Skin cancer Myocardial infarction Other Substance use disorder Surgical History Surgical History History of foot surgery Hx of cystoscopy (11/12/24) History of surgery History of neck surgery S/P cervical discectomy H/O nasal septoplasty History of ankle surgery Status post laparoscopic surgery History of wisdom tooth extraction Social History Social History Housing: House Are you a primary inspector health care facilities to a significant other at home: No Do you presently have visiting nurse or other home services: No Alcohol intake: current Comment: once a week 2 drinks Patient Tobacco Use Status: Never used Tobacco Years Smoked: quit 2009, CBD, vaping e-Cigarette/Vaping Use: Never Used Second Hand Smoke Exposure: No Have you been hit, kicked, punched, or otherwise hurt by someone within the past year? If so, by whom?: No Are you DNR?: No Advance Directives: No Advance Directives Information Provided: Yes service: No Current occupational status: unemployed Cognitive needs: No Hearing needs: No Vision needs: Yes Meds Allergies Allergy/AdvReac Type Severity Reaction Status Date / Time animal dander (ANIMAL HAIR) Allergy Intermediate ASTHMA, Verified 04/01/25 06:45 HIVES lactose (Lactose) Allergy Mild DIARRHEA Verified 04/01/25 06:45 pentosan polysulfate sodium AdvReac Intermediate LFT Verified 04/01/25 06:45 (From [place]) elevation Home Medications ?Medication ?Instructions ?Recorded ?Confirmed ?Last Taken ?Type azelastine 137 mcg (0.1 %) nasal 2 spray intranasal BID 07/29/21 03/28/25 Unknown History spray dextroamphetamine-amphetamine ER 5 1 cap PO QAM 08/27/24 03/28/25 Unknown History mg 24hr capsule,extend release (Adderall XR) zolpidem 12.5 mg tablet,extended 12.5 mg PO BEDTIME PRN Insomnia 03/25/25 03/28/25 Unknown History release,multiphase Exam Airway Mallampati Class: II (implant lateral bottom) TM Dist: >3cm Neck ROM: Full (no pain, full range) Heart: rrr Lungs: cta Assessment and Plan Assessment Anesthesia Assessment: Anesthesia Plan Discussed Final Anesthetic Review NPO: Yes ASA Class: II Final Preanesthetic Review: No Changes in Pt Med Stat, Meds/Allgs Chart Reviewed and Consent Obtained/Reviewed Patient Risk: Low Procedure Risk: Low Anesthetic Plan Anesthetic Plan: GA Disposition: Standard PACU
--- OUTSIDE RECORDS SUMMARY | 2025-03-31 15:04 | XMS_ITS | Encounter Summary ---
Author Organization [facility] Address [address] [place] [address] 7 [place] [address] Care Team Providers Care Jewelry Bench Molder Name Role Phone Unavailable Primary Care Provider Unavailabl e Encounter Details Date Type Department Care Team (Latest Contact Info) Description 05/05/2021 Abstract [facility] CONVERSIONS Dental, Provider, DDS Social History [...]
--- OUTSIDE RECORDS SUMMARY | 2025-03-31 15:04 | XMS_ITS | Encounter Summary ---
Author Organization [employer] Address [address] [place] [address] [address] [place] [address] Care Team Providers Care Promotional Marketing Analyst Name Role Phone Unavailable Primary Care Provider Unavailabl e Reason for Visit * Reason Onset Date Comments Dr. Marques Medication clarification 02/04/2025 Encounter Details Date Type Department Care Team ([facility] st Contact Info) Description 02/04/2025 Telephone [facility] [address] [place] [address] Trent Marques DDS [address] [place] [address] Dr. Marques Medication clarification Social History Tobacco [...] both scripts. Please reach out to pharmacy [phone]. documented in this encounter Plan of Treatment Not on file documented as of this encounter Visit Diagnoses Not on filedocumented in this encounter
--- OUTSIDE RECORDS SUMMARY | 2025-03-31 15:04 | XMS_ITS | Encounter Summary ---
Author Organization [facility] [facility] Address [address] [place] [address] 7 [place] [address] Care Team Providers Care Threader Operator Name Role Phone Unavailable Primary Care Provider Unavailabl e Encounter Details Date Type Department Care Team (Latest Contact Info) Description 09/26/2018 Abstract [facility] CONVERSIONS Dental, Provider, DDS Social History [...]
--- OUTSIDE RECORDS SUMMARY | 2025-03-31 15:05 | XMS_ITS | Encounter Summary ---
Author Organization [facility] Address [address] [place] [address] Care Team Providers Care Hoisting Engineer Pile Driving Name Role Phone Carrie Marshall MD Primary Care Provider [phone] Encounter Details Date Type Department Care Team (Latest Contact Info) Description 03/07/2025 Lab Requisition [facility] [address] [place] [phone] Wilberto Prado MD [address] [phone] Postmenopausal bleeding Social History Tobacco Use Types [...] lesion or malignancy 03/19/2025 12:[address] [facility] at 1227 EDT General Categorization Negative 03/19/2025 12:27 PM EDT [facility] Specimen Adequacy Satisfactory for evaluation, endocervical/crawford sformation zone component present 03/19/2025 12:27 PM EDT [facility] Pap Methodology Liquid Based Pap Test 03/19/2025 12:27 PM EDT [facility] Disclaimer The Pap test is a screening test which carries an inherent false negative rate. These test results should be correlated with the patient's clinical findings and history. This Pap test was processed using an automated screening system. Technical cytopathology services provided by [facility], at [address] [place] [address] (CLIA # [id number]/Corinne Noriega MD, Financial Rep.) 03/19/2025 12:27 PM EDT [facility] Console Pap Interpretation Reported 03/19/2025 12:27 PM EDT [facility] Brushing/Spatula Cervix uteri structure / Unknown 03/07/2025 03/07/2025 2:17 PM EDT us Wilberto Prado MD LAB CYTOLOGY ORDERABLES Final Result [facility] [address] [place] [address], documented in this encounter Visit Diagnoses Diagnosis Postmenopausal bleeding documented in this encounter Care Teams Hoisting Engineer Pile Driving Relationship Specialty Start Date End Date Carrie Marshall MD [address] [place] [address] Dr [address] [facility] [place] [address] PCP - General Internal Medicine 06/21/12 documented as of this encounter
--- OUTSIDE RECORDS SUMMARY | 2025-03-31 15:05 | XMS_ITS | Clinical Summary ---
Author Organization [facility] Address [address] [place] [address] Care Team Providers Care Whanau Support Worker Name Role Phone Carrie Marshall Primary Care Provider [phone] Allergies No known active allergies Social History [...] 75+ series) 2045 Procedures * Due to [place] [employer] law, this organization might not be sharing negative HIV tests. Procedure Name Priority Date/Time Associated Diagnosis Comments BASIC METABOLIC PANEL STAT 07/12/2024 1:28 PM EST from Last 3 Months or Most Recently Relevant to Health Maintenance Results * Due to [place] [employer] law, this organization might not be sharing negative HIV tests. * (ABNORMAL) Basic Metabolic Panel (07/12/2024 1:28 PM EST) NA 143 135 - 145 mmol/L 07/12/2024 2:05 PM EST [facility] K 4.0 [...] >=60 mL/min/1. 73m2 07/12/2024 2:05 PM EST [facility] Comment:The estimated glomer ular [...] MD LAB BLOOD ORDERABLES Final Re sult [facility] [address] [place] [address], from Last 3 Months or Most Recently Relevant to Health Maintenance Insurance [employer] Care Teams [place]anau Support Worker Relationship Specialty Start Date End Date Carrie Marshall [address] [place] [address] [place] [address] PCP - General Internal Medicine 2/21/25
--- OUTSIDE RECORDS SUMMARY | 2025-03-31 15:05 | XMS_ITS | Encounter Summary ---
Author Organization [facility] Address [address] [place] [address] Phone Care Team Providers Care Classroom Instructor Name Role Phone Carrie Marshall MD Primary Care Provider [phone] Reason for Referral * Physical Therapy (Routine) - Closed Specialty Diagnoses / Procedures Referred By Aixa rogers Referred To Contact Physical Therapy Diagnoses Encounter for rehabilitation Interstitisal Cystitis Procedures Evaluate & Treat Maikol Harding MD Phone: tel: [employer] [address] [place] [address] Phone: tel: Referral ID Status Reason Start Date Expiration Date Visits Re quested Visits Authorized [id number] Closed 01/08/2020 05/21/2020 13 13 Encounter Details Date Type Department Care Team (Latest Contact Info) Description 12/31/2019 Transcribe Orders [facility] [address] [place] [address] Maikol Harding MD [address] [place] [id number] Encounter for rehabilitation (Primary Dx) Social History [...] Date/Time Associated Diagnosis Comments AMB REFERRAL TO [facility] PHYSICAL THERAPY Routine 01/23/2020 3:22 PM EDT Encounter for rehabilitation documented in this encounter Results * Ambulatory referral to [facility] Physical Therapy (01/23/2020 3:22 PM EDT) us Maikol Harding MD AMB [facility] REFERRALS Final Result documented in this encounter Visit Diagnoses Diagnosis Encounter for rehabilitation- Primary documented in this encounter Care Teams Classroom Instructor Relationship Specialty Start Date End Date Po, Carrie Martinez MD 2 [facility] [address] [place] [phone] PCP - General Internal Medicine 12/25/19 documented as of this encounter Additional Source Comments The information contained in this document represents components of the legal health record. It is not the complete legal health record.[facility]
--- OUTSIDE RECORDS SUMMARY | 2025-03-31 15:05 | XMS_ITS | Clinical Summary ---
Author Organization [address] [facility] Address [address] [place] [address] Phone Care Team Providers Care Cost Consultant Name Role Phone Carrie Marshall MD Primary Care Provider [phone] Encounters Date Type Department Care Team Description 03/07/2025 Lab Requisition [facility] [address] [place] [phone] Wilberto Prado MD Postmenopausal bleeding 03/07/2025 Lab Requisition [facility] [address] [place] [phone] Wilberto Prado MD Postmenopausal bleeding from Last [...] or neoplasm identified 03/10/2025 10:36 AM EDT [facility] at 1036 EDT Comment I am unable to determine from this specimen the cause of the endometrial breakdown. 03/10/2025 10:36 AM EDT [facility] Clinical Information PMB 03/10/2025 10:36 AM EDT [facility] Gross Description A. Endometrium, biopsy: Labeled with the patient's name and information. Received in formalin is a 1.1 cm aggregate of irregular dark red tissue fragments which is submitted in toto in a mesh bag in one cassette, multiple pieces, x 2. ELIDA 03/10/2025 10:36 AM EDT [facility] Disclaimer Unless otherwise specified, all tissue is 10% NB formalin fixed and paraffin embedded. 03/10/2025 10:36 AM EDT [facility] Tissue Endometrial structure / Unknown 03/07/2025 03/07/2025 12:56 PM EDT us Wilberto Prado MD LAB PATHOLOGY ORDERABLES Final Result [facility] [address] [place] [address], * Pap smear (03/07/2025 12:00 AM EDT) Interpretation Negative for intraepithelial lesion or malignancy 03/19/2025 12:27 PM EDT [facility] at 1227 EDT General Categorization Negative 03/19/2025 12:27 PM [facility] Specimen Adequacy Satisfactory for evaluation, endocervical/crawford sformation zone component present 03/19/2025 12:27 PM EDT [facility] Pap Methodology Liquid Based Pap Test 03/19/2025 12:27 PM EDT [facility] Disclaimer The Pap test is a screening test which carries an inherent false negative rate. These test results should be correlated with the patient's clinical findings and history. This Pap test was processed using an automated screening system. Technical cytopathology services provided by [facility], at [address] [place] [address], [place] [address] (CLIA # [id number]/Corinne Noriega MD, Card Maker.) 03/19/2025 12:27 PM T [facility] Console Pap Interpretation Reported 03/19/2025 12:27 PM [facility] Brushing/Spatula Cervix uteri structure / Unknown 03/07/2025 03/07/2025 2:17 PM EDT us Wilberto Prado MD LAB CYTOLOGY ORDERABLES Final Result [facility] [address] [place] [address], [place] [phone] from Last 3 Months Insurance [facility] [place] [employer] Care Teams Cost Consultant Relationship Specialty Start Date End Date Carrie Marshall MD [address] [place] [address] Dr Barbi Lester [facility] [place] [address] PCP - General Internal Medicine 06/21/12
--- OUTSIDE RECORDS SUMMARY | 2025-03-31 15:05 | XMS_ITS | Data Portability ---
Author Organization Formerly [facility] [employer], [employer] Address [address] [place] [phone] Care Team Providers Care Catalog Specialist Name Role Phone WILBER DACOSTA Referring Provider Unavailable WILBER DACOSTA Referring Provider [phone] WILBER DACOSTA Primary Care Provider Assessment Encounter [...] do much more. She understands. DANAE Shabazz ([facility] September 05, 2023 Laboratories four metabolic dysregulation [...] have clinical sites close to this area, [place] or close by [facility] such as [place] or [facility]. She understood and took some notes. [...] or not imaging that was reassuring at [facility] emergency room included head imaging t he [...] one stress reaction. She did well to harness puller when she was feeling lightheaded. She [...] have clinical sites close to this area, [place] or close by major centers such as [place] or [facility]. She understood and took some notes. [...] None recorded. Lab vitamin B12, serum 024 [facility], [address] [place] [address], [address], 4 11:16:50 folate, serum 024 blanca 1 [facility], [address] [facility], [place], [address], 4 15:38:59 mma (methylma lonic acid), serum 024 [facility], [address] [place] [address], [address], 4 11:19:07 homocyste ine, serum or plasma 024 [facility], [address] [place] [address], [address], 4 11:19:12 TSH, serum or plasma - E07.9 024 [facility] 1 [facility], [address] [place] [address], [address], 4 15:39:00 T4, free, serum - E07.9 024 [facility] 1 [facility], [address] [place] [address], [address], 4 15:39:00 vitamin D, 25-hydrox y, total, serum - E55.9 024 [facility] 1 [facility], [address] [place] [address], [address], 4 15:38:59 RPR (rapid plasma reagin), serum - A53.9 024 [facility] 1 [facility], [address] [place] [address], [address], 4 15:39:00 Referral None recorded. Procedures None recorded. Surgeries None recorded. Imaging None recorded. Medication Orders None recorded. Patient TargetsNo targets recorded. Patient Instructions Encounter Date Encounter Id Patient Instructions Last Modified By Organization Details Last Modified Time 09/05/2023 [id number] Discussion acros s issues of diagnoses and management and same day associated chart review and management greater than 50% greater than 60 minutes mrossen Not available 09/05/2023 14:45:21 10/24/2023 [id number] Discussion acros s issues of diagnoses and management and same day associated chart review and management greater than 50% greater than 40 minutes mrossen Not available 10/24/2023 18:29:16 11/07/2024 [id number] Discussion acros s issues of diagnoses and [...] Not available 09/05/2023 [id number] RxNorm Veena Cisneros [facility] 4 13:09:32 Medications Name Sig Start [...] Updated DateTime 09/05/2023 165.1 cm 25 kg/m2 75556.86 g 12 /min Veena Cisneros [facility] 09/05/2023 13:09:20 Social History Question Answer Notes LastModified by Organizat ion Details LastModified Time Tobacco Smoking Status Never Smoker Veena guillen [facility] 09/05/2023 13:11:52 What Is Your Level Of Caffeine Consumption? Moderate 1 Cup Daily Information not available 09/05/2023 What Is The Highest Grade Or Level Of School You Have Completed Or The Highest Degree You Have Received? 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 623169063 D51.0 Abnormal t hyroid hormone 997535452 R94.6 Vitamin D deficiency 347 69863 E55.9 Syphilis 74068220 A53.9 [id number] Krishna Jenkins MD [facility] [address] [place] [address] [place] [address] 10/24/2023 16:39:30 10/30/2023 15:36:01 Mild neurocognitive disorder 757508298 G31.84 [id number] Krishna Jenkins MD [facility] [address] [place] [address] [place] [address] 11/07/2024 12:30:04 11/07/2024 13:32:07 Mild neurocognitive disorder 909408359 G31.84 Vasovagal syncope 547895 005 R55 131188 Health Concerns Section Related Observation LastModified by Organization Detai ls LastModified Time None Recorded Concern Status LastModified by Organization Details LastModified Time None Recorded Advance Directives Directive None Recorded Payers Insurance Date Sequence Insurance Name Policy Number Policy Post Covered Member ID Post Member ID Guarantor Name 11/16/2024 1 [facility] PL[facility] (MEDICAID HMO) JOSE Shabazz [id number] Wendy Shabazz Notes Date Note Type Note [...] for her mother last week for a [employer] application. She had difficulty so that she needed to obtain guidance from an eldercare social media manager. She thinks an earlier time she would not have needed such guidance. As an example, in 2007 she applied for medical guardianship for her mother was of her mother's of schizophrenia. She went to court, filled out forms and appeared in court all on her own, without an state's attorney.She lives with her mother and her [...] is a possibility. Krishna Jenkins MD [address] [place] [address] [place], [address], [facility] 09/05/2023 14:45:37 10/24/2023 text/html Neurology follow-up [...] for her mother last week for a [employer] application. She had difficulty so that she needed to obtain guidance from an eldercare social media manager. She thinks an earlier time she would not have needed such guidance. As an example, in 2007 she applied for medical guardianship for her mother was of her mother's of schizophrenia. She went to court, filled out forms and appeared in court all on her own, without an state's attorney.She lives with her mother and her [...] is a possibility. Krishna Jenkins MD [address] [place] [address] [place], [phone], [facility] 10/24/2023 18:29:29 11/07/2024 text/html Reconsultation for [...] relating to her stressful situation.We reviewed the [facility] discharge summary together. The discharge summary reviewed [...] for her mother last week for a [employer] application. She had difficulty so that she needed to obtain guidance from an eldercare social media manager. She thinks an earlier time she would not have needed such guidance. As an example, in 2007 she applied for medical guardianship for her mother was of her mother's of schizophrenia. She went to court, filled out forms and appeared in court all on her own, without an state's attorney.She lives with her mother and her [...] is a possibility. Krishna Jenkins MD [address] [place] [address] [place], [address], [facility] 11/07/2024 13:19:04 OBGyn Episode No OBEpisode recorded.
--- OUTSIDE RECORDS SUMMARY | 2025-03-31 15:05 | XMS_ITS | Clinical Summary ---
Author Organization [facility] Address [address] [facility] [address] [place] [address] Phone Care Team Providers Care Human Resources Recruiter Name Role Phone Carrie Marshall MD Primary Care Provider [phone] Medications No known medications Active Problems No [...] patient's age to complete this topic IPV VACCINES Aged Out No longer eligi ble based on patient's age to complete this topic MENINGOCOCCAL VACCINES (ACWY) Aged Out No longer eligible based on patient's age to complete this topic MENINGOCOCCAL VACCINES (B) Aged Out N o longer eligible based on patient's age to complete this topic Medical Devices Not on file Insurance ACO ACO ACO ACO ACO ACO ACO ACO [facility] ACO Care Teams Human Resources Recruiter Relationship Specialty Start Date End Date Carrie Marshall MD [address] [place] [address] PCP - General Internal Medicine 12/25/19 Additional Source Comments The information contained in this document represents components of the legal health record. It is not the complete legal health record.[facility]
--- OUTSIDE RECORDS SUMMARY | 2025-03-31 15:05 | XMS_ITS | Clinical Summary ---
Author Organization [facility] Address [address] [facility] [address] [place] [address] Care Team Providers Care Riverboat Master Name Role Phone Unavailable Primary Care Provider [...] MCG/ACT aerosol powder 3 Active HYDROcodone-fabrice taminophen ([place]) 5-325 MG tablet TAKE ONE TABLET BY [...] Description 02/06/2025 9:00 AM EDT Office Visit [facility] [address] [place] [address] [place] ElizabethCANDY Necrosis of dental pulp (Primary Dx); Dental root caries 02/04/2025 11:30 AM EDT Office Visit [facility] [address] [place] [address] Trent Marques DDS Tooth pain (Primary Dx) 02/04/2025 Telephone [facility] [address] [place], [place] [phone] Trent Marques DDS Dr. Challa Medication clarification 12/31/2024 9:30 AM EDT Office Visit [facility] [address] [place] [address] Pan Hernandez DMD from Last 3 Months [...] Most Recently Relevant to Health Maintenance Insurance [facility] MEDICAID STAND ADULT
--- OUTSIDE RECORDS SUMMARY | 2025-03-31 15:05 | XMS_ITS | Encounter Summary ---
Author Organization [facility] Address [address] [place] [address] Care Team Providers Care Wood Sawyer Name Role Phone Carrie Marshall MD Primary Care Provider [phone] Encounter Details Date Type Department Care Team (Latest Contact Info) Description 03/07/2025 Lab Requisition [facility] - Main Lab [address] [place] [phone] Wilberto Prado MD [address] [phone] Postmenopausal bleeding Social History Tobacco Use Types [...] or neoplasm identified 03/10/2025 10:36 AM EDT [facility] at 1036 EDT Comment I am unable to determine from this specimen the cause of the endometrial breakdown. 03/10/2025 10:36 AM EDT [facility] Clinical Information PMB 03/10/2025 10:36 AM EDT [facility] Gross Description A. Endometrium, biopsy: Labeled with the patient's name and information. Received in formalin is a 1.1 cm aggregate of irregular dark red tissue fragments which is submitted in toto in a mesh bag in one cassette, multiple pieces, x 2. ELIDA 03/10/2025 10:36 AM EDT [facility] Disclaimer Unless otherwise specified, all tissue is 10% NB formalin fixed and paraffin embedded. 03/10/2025 10:36 AM EDT [facility] Tissue Endometrial structure / Unknown 03/07/2025 03/07/2025 12:56 PM EDT us Wilberto Prado MD LAB PATHOLOGY ORDERABLES Final Result [facility] [address] [place] [address], documented in this encounter Visit Diagnoses Diagnosis Postmenopausal bleeding documented in this encounter Care Teams Wood Sawyer Relationship Specialty Start Date End Date Carrie Marshall MD [address] [place] [address] Dr Landon [address] [facility] [place] [address] PCP - General Internal Medicine 06/21/12 documented as of this encounter
[2025-04-01] MEDS: Lactated Ringers 1,000 ML 100 ML IVCONT (06:36)
[2025-04-01 06:42] VITALS: BP 133/90; PULSE 79; RESP 18; TEMP 36.6; O2SAT 96
[2025-04-01 06:43] VITALS: BMI 25.9
--- NOTE | 2025-04-01 07:30 | MHC.SHP ---
Pre-Procedural Eval Section A - 24 Hr Update-Section A only Date of Service: 04/01/25 The patient is an INPATIENT: No The patient has been examined within 24 hours of the surgical procedure. The History & Physical has been completed within 30 days and I have reviewed it.: Yes Section B - Complete if H&P > 30 days Chief Complaint: Interstitial cystitis (chronic) without hematuria Allergies: Allergies Allergy/AdvReac Type Severity Reaction Status Date / Time animal dander (ANIMAL HAIR) Allergy Intermediate ASTHMA, Verified 04/01/25 06:45 HIVES lactose (Lactose) Allergy Mild DIARRHEA Verified 04/01/25 06:45 pentosan polysulfate sodium AdvReac Intermediate LFT Verified 04/01/25 06:45 (From [place]) elevation Plan Diagnosis/Plan: Unchanged I have reviewed the history and physical and performed a pertinent physical examination on my patient. No changes have occurred unless specified. Cystoscopy. Hydrodistension. Discussed risks to include but not limited to, blood in the urine, burning with urination, urgency. Time Spent With Patient Time: Total time managing care of this patient today ____ minutes.
--- NOTE | 2025-04-01 07:31 | W.PM.OPN ---
Operative Note Operative Note Date of Service: 04/01/25 Narrative: PREOP DIAGNOSIS: Interstitial cystitis, bladder pain POSTOP DIAGNOSIS: Interstitial cystitis, bladder pain PROCEDURE: CYSTOSCOPY HYDRODISTENTION Anethesia: General Surgeon: Dr. Carla Mcmillan Details of procedure: The patient was brought into the operating room placed on the OR table in supine position. 2 g of Ancef IV. General anesthesia was administered. The patient was repositioned into lithotomy position, prepped and draped in the usual sterile fashion. Time-out was done per protocol. A 22 fr cystoscope was placed transurethrally into the bladder. Urine was drained from the bladder measuring 75 mL.The right and left ureteral orifices were visualized. The entire bladder was visualized. There were no suspicious bladder lesions seen. There were mild trabeculations noted. The bladder was filled with sterile water at 80 cm of water pressure under gravity. The bladder was distended for 2 minutes. Bladder capacity measured 875 mL. Revisualization of the bladder, noted mild glomerulations. No Hunner ulcerations. The bladder was refilled with sterile water again at 80 cm of water pressure under gravity. The bladder was distended for 7 minutes. The fluid was drained from the bladder and measured 975 mL. The cystoscope was removed. 2% lidocaine urojet was passed transurethrally, Solution of (1% lidocaine plain, 20 mL, 0.5 % Marcaine 15 mL mixed with 30,000 units of heparin concentration 5000 units per mL total of 6 mL heparin) instilled transurethrally into the bladder. Belladonna placed per rectum. The patient was brought out of anesthesia and taken to recovery in stable condition. Complications: None EBL: minimal (<5 mL) Drains: none
[2025-04-01 08:09] VITALS: BP 128/85; PULSE 72; RESP 16; TEMP 36.2; O2SAT 95
[2025-04-01 08:14] VITALS: BP 129/88; PULSE 69; RESP 12; O2SAT 92
[2025-04-01 08:19] VITALS: BP 130/87; PULSE 76; RESP 13; O2SAT 96
[2025-04-01 08:24] VITALS: BP 130/87; PULSE 67; RESP 12; O2SAT 93
[2025-04-01 08:47] VITALS: BP 128/79; PULSE 65; RESP 20; TEMP 36.1; O2SAT 95
== END 2025-04-01 09:14 | disposition home or self-care (01) ==
PROVIDERS: PCP Internal Medicine; Visit Provider Urology
PROC: 0T7B7ZZ Dilation of Bladder, Via Natural or Artificial Opening (ICD-10-PCS; CPT 52260; principal; 2025-04-01 07:30)
DX: N30.10 Interstitial cystitis (chronic) without hematuria (principal); N08 Glomerular disorders in diseases classified elsewhere; R39.89 Other symptoms and signs involving the genitourinary system; N32.89 Other specified disorders of bladder; J45.909 Unspecified asthma, uncomplicated; M48.061 Spinal stenosis, lumbar region without neurogenic claudication; F41.9 Anxiety disorder, unspecified; Z79.51 Long term (current) use of inhaled steroids; Z79.1 Long term (current) use of non-steroidal anti-inflammatories (NSAID); Z79.899 Other long term (current) drug therapy
CPT/HCPCS: 52260; 87086; J0690; J1100; J1644; J1885; J2003; J2250; J2405; J2704; J3010

== ENCOUNTER → 2025-04-01 06:11 | Outpatient (BNV) | payer OTHER, SELFPAY | PROVIDERS: PCP Internal Medicine; Visit Provider Urology | DX: N30.10 Interstitial cystitis (chronic) without hematuria (principal); R30.0 Dysuria | CPT/HCPCS: 52260 ==

== ENCOUNTER 2025-04-23 11:15 | Outpatient (REF) | payer OTHER, SELFPAY ==
[2025-04-23 12:17] LABS: Alanine Aminotransferase 28 U/L (0-31); Albumin Level 4.8 g/dL (3.5-5.0); Alkaline Phosphatase 68 U/L (39-117); Anion Gap 11 (12-20); Aspartate Amino Transferase 26 U/L (5-31); Blood Urea Nitrogen 10 mg/dL (9-16); Calcium 9.4 mg/dL (8.4-10.2); Carbon Dioxide 24 mmol/L (22-29); Chloride 108 mmol/L (96-108); Cholesterol 228 mg/dL (<200); Estimated Glomerular Filt Rate > 60; HDL Cholesterol 58 mg/dL (>40); Potassium 3.7 mmol/L (3.3-5.1); Sodium 139 mmol/L (135-145); Total Protein 7.1 g/dL (6.5-8.0); Triglycerides 97 mg/dL (<150)
--- OUTSIDE RECORDS SUMMARY | 2025-04-23 13:30 | XMS_ITS | Encounter Summary ---
Author Organization [facility] Address [address] [place] [address] Care Team Providers Care Metal Grinder Name Role Phone Carrie Marshall MD Primary Care Provider [phone] Encounter Details Date Type Department Care Team (Latest Contact Info) Description 03/07/2025 Lab Requisition [facility] - Main Lab [address] [place] [phone] Wilberto Prado MD [address] [phone] Postmenopausal bleeding Social History Tobacco Use Types [...] lesion or malignancy 03/19/2025 12:27 PM EDT [facility] at 1227 EDT General Categorization Negative 03/19/2025 12:27 PM EDT [facility] Specimen Adequacy Satisfactory for evaluation, endocervical/crawford sformation zone component present 03/19/2025 12:27 PM EDT [facility] Pap Methodology Liquid Based Pap Test 03/19/2025 12:27 PM EDT [facility] Disclaimer The Pap test is a screening test which carries an inherent false negative rate. These test results should be correlated with the patient's clinical findings and history. This Pap test was processed using an automated screening system. Technical cytopathology services provided by [facility], at [address] [place] [address] (CLIA # [id number]/Corinne Noriega MD, Supervisor Asbestos Removal.) 03/19/2025 12:27 PM EDT [facility] Console Pap Interpretation Reported 03/19/2025 12:27 PM EDT [facility] Brushing/Spatula Cervix uteri structure / Unknown 03/07/2025 03/07/2025 2:17 PM EDT us Wilberto Prado MD LAB CYTOLOGY ORDERABLES Final Result [facility] [address] [place] [address], documented in this encounter Visit Diagnoses Diagnosis Postmenopausal bleeding documented in this encounter Care Teams Metal Grinder Relationship Specialty Start Date End Date Carrie Marshall MD [address] [place] [address] [address] [facility] [place] [address] PCP - General Internal Medicine 06/21/12 documented as of this encounter
--- OUTSIDE RECORDS SUMMARY | 2025-04-23 13:30 | XMS_ITS | Clinical Summary ---
Author Organization [facility] Address [address] [place] [address] Care Team Providers Care Occupational Therapy Teacher Name Role Phone Carrie Marshall Primary Care Provider [phone] Allergies No known active allergies Social History [...] Health Annual Screening 05/22/2024 Influenza Vaccine (#1) 2024 Basic Metabolic Panel 07/12/2025 07/12/2024 Procedures * Due to [place] [employer] law, this organization might not be sharing negative HIV tests. Procedure Name Priority Date/Time Associated Diagnosis Comments BASIC METABOLIC PANEL STAT 07/12/2024 1:28 PM EST from Last 3 Months or Most Recently Relevant to Health Maintenance Results * Due to [place] [employer] law, this organization might not be sharing [...] >=60 mL/min/1. 73m2 07/12/2024 2:05 PM EST [facility] Comment:The estimated glomer ular [...] Camacho MD LAB BLOOD ORDERABLES [facility] Organization Address City/State/ZIP Co de Phone Number [facility] [address] [place], [place] [phone], from Last 3 Months or Most Recently Relevant to Health Maintenance Insurance [employer] Care Teams Occupational Therapy Teacher Relationship Specialty Start Date End Date Carrie Marshall [address] [place] [address] [place] [address] PCP - General Internal Medicine 07/12/24
--- OUTSIDE RECORDS SUMMARY | 2025-04-23 13:30 | XMS_ITS | Encounter Summary ---
Author Organization [facility] Address [address] [place] [address] [address] [place] [address] Care Team Providers Care Animal Impersonator Name Role Phone Unavailable Primary Care Provider Unavailabl e Encounter Details Date Type Department Care Team (Latest Contact Info) Description 09/26/2018 Abstract [facility] CONVERSION[facility] Dental, Provider, DDS Social History Tobacco [...]
--- OUTSIDE RECORDS SUMMARY | 2025-04-23 13:30 | XMS_ITS | Clinical Summary ---
Author Organization [facility] Address [address] [facility] [address] [place] [address] Phone Care Team Providers Care Managed Care Liaison Name Role Phone Carrie Marshall MD Primary Care Provider [phone] Medications No known medications Active Problems No [...] file Insurance ACO ACO ACO [place] [place] [address] [address] [place] [address] ACO [facility] [place] [address] Care Teams Managed Care Liaison Relationship Specialty Start Date End Date Carrie Marshall MD [address] [place] [phone] PCP - General Internal Medicine 12/25/19 Additional Source Comments The information contained in this document represents components of the legal health record. It is not the complete legal health record.[facility]
--- OUTSIDE RECORDS SUMMARY | 2025-04-23 13:30 | XMS_ITS | Clinical Summary ---
Author Organization [facility] Address [address] [facility] 7 [place] [address] Care Team Providers Care 2Nd Pressman Name Role Phone Unavailable Primary Care Provider [...] MCG/ACT aerosol powder 3 Active HYDROcodone-fabrice taminophen ([place]) 5-325 MG tablet TAKE ONE TABLET BY [...] Description 02/06/2025 9:00 AM EDT Office Visit [facility] [address] [place] [address] Coats-Salas ElizabethCANDY Necrosis of dental pulp (Primary Dx); Dental root caries 02/04/2025 11:30 AM EDT Office Visit [facility] [address] [place] [address] Trent Marques DDS Tooth pain (Primary Dx) 02/04/2025 Telephone [facility] [address] [place], [place] [phone] Trent Marques DDS Dr. Challa Medication clarification from Last 3 Months Social History Tobacco [...] MINOR PROCEDURE Routine 02/04/2025 11:30 AM EDT PROPHYLAXIS - ADULT Routine 10/10/2024 3 :00 PM EDT Dental calculus Dental plaque INTRAORAL - COMPLETE SERIES OF RADIOGRAPHIC IMAGES Routine 10/10/2024 3:00 PM EDT PERIODIC ORAL EVALUATION - ESTABLISHED PATIENT Routine 10/10/2024 3:00 PM EDT from Last 3 Months or Most Recently Relevant to Health Maintenance Insurance [facility] MEDICAID STAND ADULT
--- OUTSIDE RECORDS SUMMARY | 2025-04-23 13:30 | XMS_ITS | Encounter Summary ---
Author Organization [facility] Address [address] [place] [phone] Phone Care Team Providers Care Manager Food Beverage Name Role Phone Carrie Marshall MD Primary Care Provider [phone] Reason for Referral * Physical Therapy (Routine) - Closed Specialty Diagnoses / Procedures Referred By Aixa rogers Referred To Contact Physical Therapy Diagnoses Encounter for rehabilitation Interstitisal Cystitis Procedures Evaluate & Treat Maikol Harding MD Phone: tel: [facility] [address] [place] [address] Phone: tel: Referral ID Status Reason Start Date Expiration Date Visits Re quested Visits Authorized [id number] Closed 01/08/2020 05/21/2020 13 13 Encounter Details Date Type Department Care Team (Latest Contact Info) Description 12/31/2019 Transcribe Orders [facility] [address] [place] [address] Maikol Harding MD [address] [place] [phone] Encounter for rehabilitation (Primary Dx) Social History [...] Date/Time Associated Diagnosis Comments AMB REFERRAL TO [facility] PHYSICAL THERAPY Routine 01/23/2020 3:22 PM EDT Encounter for rehabilitation documented in this encounter Results * Ambulatory referral to [facility] Physical Therapy (01/23/2020 3:22 PM EDT) us Maikol Harding MD AMB [facility] REFERRALS Final Result documented in this encounter Visit Diagnoses Diagnosis Encounter for rehabilitation- Primary documented in this encounter Care Teams Manager Food Beverage Relationship Specialty Start Date End Date Po, Carrie Martinez MD [address] [facility] [address] [place] [phone] PCP - General Internal Medicine 12/25/19 documented as of this encounter Additional Source Comments The information contained in this document represents components of the legal health record. It is not the complete legal health record.[facility]
--- OUTSIDE RECORDS SUMMARY | 2025-04-23 13:30 | XMS_ITS | Encounter Summary ---
Author Organization [employer] Address [address] [place] [address] 7 [place] [address] Care Team Providers Care Pipe Or Steam Fitter Furnace Installer Name Role Phone Unavailable Primary Care Provider Unavailabl e Reason for Visit * Reason Onset Date Comments Dr. Marques Medication clarification 02/04/2025 Encounter Details Date Type Department Care Team ([facility] st Contact Info) Description 02/04/2025 Telephone [facility] [address] [place] [address] Trent Marques DDS [address] [place] [address] Dr. Marques Medication clarification Social History Tobacco [...] both scripts. Please reach out to pharmacy [phone]. documented in this encounter Plan of Treatment Not on file documented as of this encounter Visit Diagnoses Not on filedocumented in this encounter
--- OUTSIDE RECORDS SUMMARY | 2025-04-23 13:30 | XMS_ITS | Encounter Summary ---
Author Organization [employer] [facility] Address [address] [place] [address] [address] [address] Care Team Providers Care Pilot Boat Deckhand Name Role Phone Unavailable Primary Care Provider Unavailabl e Encounter Details Date Type Department Care Team (Latest Contact Info) Description 05/05/2021 Abstract [facility] CONVERSIONS Dental, Provider, DDS Social [...]
--- OUTSIDE RECORDS SUMMARY | 2025-04-23 13:31 | XMS_ITS | Clinical Summary ---
Author Organization [address] [facility] Address [address] [place] [address] Phone Care Team Providers Care Multimedia Coordinator Name Role Phone Carrie Marshall MD Primary Care Provider [phone] Encounters Date Type Department Care Team Description 03/07/2025 Lab Requisition [facility] [address] [place] [phone] Wilberto Prado MD Postmenopausal bleeding 03/07/2025 Lab Requisition [facility] [address] [place] [phone] Wilberto Prado MD Postmenopausal bleeding from Last [...] Depression Screening 05/22/2024 COVID-19 Vaccine (1 - 2024-2 6 season) 2025 Influenza Vaccine (#1) 2025 HIV [...] or neoplasm identified 03/10/2025 10:36 AM EDT [facility] at 1036 EDT Comment I am unable to determine from this specimen the cause of the endometrial breakdown. 03/10/2025 10:36 AM EDT [facility] Clinical Information PMB 03/10/2025 10:36 AM EDT [facility] Gross Description A. Endometrium, biopsy: Labeled with the patient's name and information. Received in formalin is a 1.1 cm aggregate of irregular dark red tissue fragments which is submitted in toto in a mesh bag in one cassette, multiple pieces, x 2. ELIDA 03/10/2025 10:36 AM EDT [facility] Disclaimer Unless otherwise specified, all tissue is 10% NB formalin fixed and paraffin embedded. 03/10/2025 10:36 AM EDT [facility] Tissue Endometrial structure / Unknown 03/07/2025 03/07/2025 12:56 PM EDT us Wilberto Prado MD LAB PATHOLOGY ORDERABLES Final Result [facility] [address] [place] [address], * Pap smear (03/07/2025 12:00 AM EDT) Interpretation Negative for intraepithelial lesion or malignancy 03/19/2025 12:27 PM EDT [facility] at 1227 EDT General Categorization Negative 03/19/2025 12:27 PM [facility] Specimen Adequacy Satisfactory for evaluation, endocervical/crawford sformation zone component present 03/19/2025 12:27 PM EDT [facility] Pap Methodology Liquid Based Pap Test 03/19/2025 12:27 PM EDT [facility] Disclaimer The Pap test is a screening test which carries an inherent false negative rate. These test results should be correlated with the patient's clinical findings and history. This Pap test was processed using an automated screening system. Technical cytopathology services provided by [facility], at [address] [place] [address], [place] [address] (CLIA # [id number]/Corinne Noriega MD, Security Officer Supervisor.) 03/19/2025 12:27 PM T [facility] Console Pap Interpretation Reported 03/19/2025 12:27 PM [facility] Brushing/Spatula Cervix uteri structure / Unknown 03/07/2025 03/07/2025 2:17 PM EDT us Wilberto Prado MD LAB CYTOLOGY ORDERABLES Final Result [facility]) [facility] [address] [place] [address], [place] [phone] from Last 3 Months Insurance [facility] [place] [employer] Care Teams Multimedia Coordinator Relationship Specialty Start Date End Date Carrie Marshall MD [address] [place] [address] Dr Barbi Lester [facility] [place] [address] PCP - General Internal Medicine 06/21/12
--- OUTSIDE RECORDS SUMMARY | 2025-04-23 13:31 | XMS_ITS | Encounter Summary ---
Author Organization [facility] Address [address] [place] [address] Care Team Providers Care Transplant Registered Nurse Name Role Phone Carrie Marshall MD Primary Care Provider [phone] Encounter Details Date Type Department Care Team (Latest Contact Info) Description 03/07/2025 Lab Requisition [facility] [address] [place] [phone] Wilberto Prado MD [address] [phone] Postmenopausal bleeding Social History Tobacco Use Types [...] or neoplasm identified 03/10/2025 10:36 AM EDT [facility] at 1036 EDT Comment I am unable to determine from this specimen the cause of the endometrial breakdown. 03/10/2025 10:36 AM EDT [facility] Clinical Information PMB 03/10/2025 10:36 AM EDT [facility] Gross Description A. Endometrium, biopsy: Labeled with the patient's name and information. Received in formalin is a 1.1 cm aggregate of irregular dark red tissue fragments which is submitted in toto in a mesh bag in one cassette, multiple pieces, x 2. ELIDA 03/10/2025 10:36 AM EDT [facility] Disclaimer Unless otherwise specified, all tissue is 10% NB formalin fixed and paraffin embedded. 03/10/2025 10:36 AM EDT [facility] Tissue Endometrial structure / Unknown 03/07/2025 03/07/2025 12:56 PM EDT us Wilberto rPado MD LAB PATHOLOGY ORDERABLES Final Result [facility] [address] [place] [address], documented in this encounter Visit Diagnoses Diagnosis Postmenopausal bleeding documented in this encounter Care Teams Transplant Registered Nurse Relationship Specialty Start Date End Date Carrie Marshall MD [address] [place] [address] Dr Landon [address] [facility] [place] [address] PCP - General Internal Medicine 06/21/12 documented as of this encounter
== END 2025-04-23 11:16 | disposition home or self-care (01) ==
LOC: HO.LAB 11:15
PROVIDERS: PCP Internal Medicine; Visit Provider Internal Medicine
DX: E78.00 Pure hypercholesterolemia, unspecified (principal)
CPT/HCPCS: 36415; 80053; 80061

== ENCOUNTER 2025-05-01 07:17 | Outpatient (AMB) | payer OTHER, SELFPAY ==
--- NOTE | 2025-05-01 07:18 | A.OFFVIS_ITS ---
Intake Visit Reasons: Hydrodistention of Bladder f/u (set) Intake Note: Patient is present for hydrodistention follow up Imaging : [facility] 04/01/25 Urology Meds:Pyridium Antibiotic Allergies: none Blood Thinners: none Cutter Woodwind Reeds Required: No Accompanied by: Child Allergies animal dander (ANIMAL HAIR) Allergy (Intermediate, Verified 05/01/25 07:19) ASTHMA, HIVES lactose (Lactose) Allergy (Mild, Verified 05/01/25 07:19) DIARRHEA pentosan polysulfate sodium (From Elmiron) Adverse Reaction (Intermediate, Verified 05/01/25 07:19) LFT elevation Medication List - Last Reconciled 05/01/25 by Carla Mcmillan MD albuterol sulfate 90 mcg/actuation (Ventolin HFA) 2 puffs PO Q4-6H PRN azelastine 2 sprays intranasal BID blood pressure monitor (Blood Pressure Kit) As directed bupropion HCl 75 mg PO DAILY 90 days bupropion HCl XL 150 mg PO DAILY cholecalciferol (vitamin D3) 50 mcg PO DAILY dextroamphetamine-amphetamine 5 mg ER (Adderall XR) 1 cap PO QAM dicyclomine 20 mg (2 x 10 mg) PO BID diphenhydramine HCl (Banophen) 50 mg PO BEDTIME PRN epinephrine 0.3 mg (0.3 mL) IM ONCE PRN escitalopram oxalate 10 mg PO DAILY esketamine (Spravato) inhale 2 sprays into each nostril 2 times per week, with 5-minute rest between use of each device intranasal SURENDRA Dr. ELLINGTON [facility] [address] [place] [address] esomeprazole magnesium 40 mg PO DAILY estradiol 0.01%(0.1mg/gram) (Estrace) apply pea-sized amount on fingertip to urethra vaginally daily at bedtime famotidine 20 mg PO BID fexofenadine 180 mg PO DAILY PRN 90 days fluticasone propion-salmeterol 250-50 mcg/dose (Advair Diskus) 1 inh inhalation Q12H fluticasone propionate 50 mcg/actuation 2 sprays intranasal DAILY gabapentin 100 mg PO TID hydrocodone-acetaminophen 5-325 mg 1 tab PO TID PRN 30 days ibuprofen 800 mg PO Q12H PRN lisinopril 5 mg PO DAILY loperamide (Anti-Diarrheal (loperamide)) 2 mg PO QID PRN 30 days magnesium oxide 400 mg PO DAILY menthol 5% (Cold and Hot (menthol)) 1 patch topical DAILY PRN mathewtcft-vbfuh-gsm 118-10-40.8-36 mg 1 tab PO TID-QID 90 days montelukast 10 mg PO BEDTIME 90 days ondansetron 4 mg PO Q8H PRN oxycodone-acetaminophen 5-325 mg (Percocet) 1 tab PO Q6-8H PRN phenazopyridine (Pyridium) 200 mg PO .q12h PRN polyethylene glycol 3350 (Miralax) 238 grams PO ONCE promethazine 25 mg PO Q12H PRN zolpidem ER 12.5 mg PO BEDTIME PRN HPI Comments Details: 05/01/2025--Wendy is a 55-year-old female who is followed for chronic interstitial cystitis. She had repeat cystoscopy hydrodistention on 04/01/2025. She states she has less pain. She has inquired about Botox therapy. She denies significant urgency. I have discussed that Bladder botox therapy is used to man age intractible urge symptoms. She is prescribed gabapentin, pyridium, uribel and estrace. FU in 3 months. 12/06/24--Wedny is a 54-year-old female followed for chronic interstitial cystitis she is prescribed gabapentin and Pyridium PRN and Uribel PRN she is here for follow-up status post repeat cystoscopy hydrodistention, 11/12/2024. History of Present Illness - The patient is a 54-year-old female presenting for follow-up of chronic interstitial cystitis. - Chronic interstitial cystitis is managed with gabapentin and Uribel, Pyridium as needed. - the patient had good symptom relief with Elmiron which was discontinued due to side effects. - She underwent repeat cystoscopy with hydrodistension, which slightly aggravated her symptoms. - Persistent pain is reported despite medication, with a recent lapse in medication due to prescription issues. - Sperato treatments with escapadine, including ketamine, have been initiated by her psychiatrist for mood stabilization - Past bladder installations of lidocaine aggravated her condition. - She experiences acid reflux and has been advised to take pyridium with food to reduce nausea. - Significant stress is reported due to personal circumstances, including issues with her mother's healthcare and transportation problems. Plan - Continue gabapentin and Uribel as needed for chronic interstitial cystitis management. - Pyridiumto be taken gingerly, every other day, until Uribel is available. - Schedule a six-month follow-up appointment. 10/07/24--Wendy she is 54-year-old female who is followed for chronic interstitial cystitis, she is currently on gabapentin and pyridium prn, while trying to maintain adequate hydration. There is a significant stress component related to her mother's healthcare facility mismanagement, exacerbating her sym ptoms. She is followed by pain management for chronic pain with Vicodin. Discussion Notes During the visit, I discussed the patient's pain management, emphasizing the careful use of gabapentin and Vicodin, avoiding excessive medication. We discussed managing urinary symptoms using pyridium and increasing fluid intake to alleviate discomfort. Additionally, we considered the impact of dietary cho ices on recurrent yeast infections, supporting the choice of oral fluconazole, and the importance of dietary adjustments to mitigate symptoms. The importance of follow-up with her psychiatrist and further consultation for additional treatment options was emphasized. Plan- Repeat cystoscopy hydrodistension. 07/18/24--Wendy she is 54-year-old female who is followed for chronic interstitial cystitis, she is currently on gabapentin and Uribel. The patient is a 54-year-old female presenting with chronic interstitial cystitis management. The patient has experienced chronic symptoms associated with interstitial cystitis and has been under management with Gabapentin. The cessation of Elmiron is particularly notable due to potential early retinal involvement, preventing further exacerbation. She also uses Pyridium and Urabelle selectively for flare management. Recent exacerbations have been linked primarily to increased personal stress, notably concerning her mother's health complications including possible endometrial cancer and advancing dementia, causing increased anxiety and contributing to the patient's overall symptomatology. She has experienced past success with symptom resolution following environmental and situational stress reduction, with her current medication approach serving to support daily function. - Recent urinalysis: absence of hematuria, presence of leukocytes warranting culture for potential UTI exclusion. 12/07/23--Telehealth FU-Wendy is being followed for interstitial cystitis. Comorbidity cervical and lumbar radiculopathy. She is tapered off of the Elmiron. She is managed with cystoscopy hydrodistention as needed. She watches her diet. And she is aware of her IC stressors. She complains that her pain symptoms have been worsening off of the Elmiron. Discussed restarting elmiron and will also add gabapentin. 10/20/23--Wendy is being followed for interstitial cystitis. Comorbidity cervical and lumbar radiculopathy. She is tapered off of the Elmiron. She is managed with cystoscopy hydrodistention as needed. Last cystoscopy hydrodistention was on 08/08/2023--she watches her diet. 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 She states that she is going through flare. I have discussed using NSAIDs and Pyridium p.r.n.. Motrin 800 mg every 12 hours p.r.n. sent to the pharmacy. The patient is on a pain management regimen for her radiculopathy condition. 08/31/2023--Wendy is being followed for interstitial cystitis. She is status post repeat cystoscopy hydrodistention on 08/08/2023--cystoscopy findings bladder capacity post post distention 900 mL no glomerulations observed. The patient states that she has been doing better since the cystoscopy. She is aware that s he has stress-induced IC flare ups. 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 She is planning to have her moved to an assisted living facility which she feels will be beneficial to her mother and take some of the stress away. She denies dysuria. She denies gross hematuria or urinary incontinence. Urinalysis: Urinalysis negative blood negative. Plan follow-up in 6 months. 07/26/2023-- Wendy is a 53-year-old female who presents today to the office for a follow-up. mother with alzheimers stress exacerbates IC symptoms, urge. She has been doing the bladder instillations with the nursing staff. using Prelief with coffee. 2 tabs. Discussed repeat cysto/hydro. 03/27/23--Wendy is a 53-year-old female who was diagnosed with IC in 2016 and was started on Elmiron. The patient is currently on 200 mg twice a day. Co- morbidity: cervical spine condition and status post fusion of C3 and C4 in November 2016 and disc replacement between C5 and C6 in March 2019. She is has chronic pain and is prescribed Vicodin by pain management. She presents to the office for 1-month interstitial cystitis follow-up. She is still using the Elmiron 200 mg BID. I discussed tapering off the elmiron due to reported side effects with fdc use. She states when she tried lowering the elmiron use, she had bladder pain. I prescribed hydroxyzine and she states when she increased dose from 25 to 50 mg she had numbness. She states that she has seen Dr. Myles, ophthalmology and was told that there was no retinal damage. States following IC diet. One coffee in the morning during the week. Does not consume tomatoes or citrus foods. Consumes alcohol once a week and mentions occasional worsening of bladder pain due to alcohol. she is using prelief prn, when she consumes pizza, pasta, or alcohol. Evaluation today UA: Blood: negative, leukocytes: negative. Discontinue Elmiron. Ordered liver function testing. Will start bladder instillations with heparin, lidocaine, and solumedrol with nursing staff, daily for 5 days, then bi weekly x 2, then weekly x 8 then reevaluate. FU with me in 3 months. [facility] Medical History Lumbar stenosis Pneumonia due to COVID-19 virus Hospital discharge follow-up Chronic pain of left ankle IBS (irritable bowel syndrome) Anxiety Depression Asthma Hx of flexible sigmoidoscopy COVID-19 vaccine series completed History of COVID-19 Dental abscess Dental infection Sinusitis, maxillary, chronic Acute sinusitis Diarrhea Cervical radiculopathy ASCUS (atypical squamous cells of undetermined significance) on gynecologic Papanicolaou smear complicating , antepartum Lumbar degenerative disc disease GERD (gastroesophageal reflux disease) Hypercholesterolemia Insomnia Hypertension Interstitial cystitis Degenerative disc disease, cervical Surgical History History of foot surgery Hx of cystoscopy (11/12/24) History of surgery History of neck surgery S/P cervical discectomy H/O nasal septoplasty History of ankle surgery Status post laparoscopic surgery History of wisdom tooth extraction Family History Father PTSD (post-traumatic stress disorder) Mental health disorder Mother No problems noted. Maternal Grandmother Breast cancer Maternal Grandfather Myocardial infarction Maternal Uncle Past heart attack Skin cancer Myocardial infarction Other Substance use disorder Social History Housing: House Are you a primary neonatal intensive care unit nurse to a significant other at home: No Do you presently have visiting nurse or other home services: No Alcohol intake: current Comment: once a week 2 drinks Patient Tobacco Use Status: Never used Tobacco Years Smoked: quit 2009, CBD, vaping e-Cigarette/Vaping Use: Never Used Second Hand Smoke Exposure: No service: No Current occupational status: unemployed Cognitive needs: No Hearing needs: No Vision needs: Yes Review of Systems Const All systems reviewed & are unremarkable except as noted in HPI and below Reports no additional complaints Eyes Reports no additional complaints ENT Reports no additional complaints Card Reports no additional complaints Resp Reports no additional complaints GI Reports no additional complaints Reports as per HPI Musc Reports no additional complaints Skin/Breast Reports system reviewed and no additional complaints, except as documented Neuro Reports no additional complaints Psych Reports no additional complaints Endo Reports no additional complaints Kyler/Lymph Reports no additional complaints Aller/Immun Reports no additional complaints Telehealth Telehealth Telehealth Platform: [facility] Location of provider rendering services: practice address Location of patient: address on file Patient Identification confirmed using: Name, : Yes Telehealth method: video Patient verbally consented to treatment: Yes Patient verbally consented to billing insurance company: Yes Patient informed of any privacy concerns related to visit: Yes Assessment & Plan Assessment & Plan (1) Interstitial cystitis: Code(s): N30.10 - Interstitial cystitis (chronic) without hematuria Category: Medical (2) Pelvic pain: Code(s): R10.2 - Pelvic and perineal pain Category: Medical (3) Bladder pain: Code(s): R39.89 - Other symptoms and signs involving the genitourinary system Category: Medical Plan She is prescribed gabapentin, pyridium, uribel and estrace. FU in 3 months. Medications: New methen-m.blue-s.cfrt-qavrg-ijm 118-10-40.8-36 mg administer with plenty of fluids 1 tab PO TID-QID 360 caps 3RF 90 days Refilled estradiol 0.01%(0.1mg/gram) (Estrace) apply pea-sized amount on fingertip to urethra vaginally daily at bedtime 42.5 grams 1RF phenazopyridine (Pyridium) must administer with food 200 mg PO .q12h PRN 30 tabs 0RF urinary pain gabapentin 100 mg PO TID 90 caps 1RF Discontinued phenazopyridine (Pyridium) must administer with food Discontinued Reason: Duplicate 200 mg PO TID PRN 30 tabs 1RF pain with urination Patient Instructions: The patient had an opportunity to ask questions regarding treatment plan. The patient expressed understanding and agreement with the above treatment plan. The patient is aware they should contact our office by phone for worsening of their current condition or the appearance of new symptoms. Compliance is encouraged with any medications and followup testing that is ordered. It is a privilege to be allowed the opportunity to participate in the urologic care of your patient. If you have any questions or concerns regarding treatment for the above conditions please do not hesitate to contact me. The office telephone contact is [phone]. This note is constructed in part using voice recognition software. While every effort has been made to ensure accuracy payroll bookkeeper errors may have been included. Yours sincerely, Carla Mcmillan MD Coding Level of Care Code Tele Est Pt Level 3 (71752) Diagnoses Interstitial cystitis N30.10 Pelvic pain R10.2 Bladder pain R39.89
--- OUTSIDE RECORDS SUMMARY | 2025-05-01 07:20 | XMS_ITS | Encounter Summary ---
Author Organization [employer] Address [address] [place] [address] [address] [place] [address] Care Team Providers Care Medical Affairs Specialist Name Role Phone Unavailable Primary Care Provider Unavailabl e Reason for Visit * Reason Onset Date Comments Dr. Marques Medication clarification 02/04/2025 Encounter Details Date Type Department Care Team ([facility] st Contact Info) Description 02/04/2025 Telephone [facility] [address] [place] [address] Trent Marques DDS [address] [place] [address] Dr. Marques Medication clarification Social History Tobacco [...] both scripts. Please reach out to pharmacy [phone]. documented in this encounter Plan of Treatment Not on file documented as of this encounter Visit Diagnoses Not on filedocumented in this encounter
--- OUTSIDE RECORDS SUMMARY | 2025-05-01 07:20 | XMS_ITS | Clinical Summary ---
Author Organization [facility] Address [address] [facility] [address] [place] [address] Care Team Providers Care Last Sawyer Name Role Phone Unavailable Primary Care Provider [...] MCG/ACT aerosol powder 3 Active HYDROcodone-fabrice taminophen ([place]) 5-325 MG tablet TAKE ONE TABLET BY [...] Description 02/06/2025 9:00 AM EDT Office Visit [facility] [address] [place] [address] [place] ElizabethCANDY Necrosis of dental pulp (Primary Dx); Dental root caries 02/04/2025 11:30 AM EDT Office Visit [facility] [address] [place] [address] Trent Marques DDS Tooth pain (Primary Dx) 02/04/2025 Telephone [facility] [address] [place], [place] [id number] Trent Marques DDS Dr. Challa Medication clarification [...]
--- OUTSIDE RECORDS SUMMARY | 2025-05-01 07:20 | XMS_ITS | Clinical Summary ---
Author Organization [facility] Address [address] [facility] [address] [place] [address] Phone Care Team Providers Care Property Underwriter Name Role Phone Carrie Marshall MD Primary Care Provider [phone] Medications No known medications Active Problems No [...] file Insurance ACO [employer] [place] [address] [place] [address] [place] [address] [place] [address] ACO [facility] ACO Care Teams Property Underwriter Relationship Specialty Start Date End Date Carrie Marshall MD [address] [place] [phone] PCP - General Internal Medicine 12/25/19 Additional Source Comments The information contained in this document represents components of the legal health record. It is not the complete legal health record.[facility]
--- OUTSIDE RECORDS SUMMARY | 2025-05-01 07:20 | XMS_ITS | Encounter Summary ---
Author Organization [facility] Address [address] [place] [address] [address] [place] [address] Care Team Providers Care Detector Car Operator Name Role Phone Unavailable Primary Care Provider Unavailabl e Encounter Details Date Type Department Care Team (Latest Contact Info) Description 05/05/2021 Abstract [facility] CONVERSIONS Dental, Provider, DDS Social [...]
--- OUTSIDE RECORDS SUMMARY | 2025-05-01 07:20 | XMS_ITS | Clinical Summary ---
Author Organization [facility] Address [address] [place] [address] Care Team Providers Care Medical Detail Representative Name Role Phone Carrie Marshall Primary Care Provider Allergies No known active allergies Social History [...] Panel 07/12/2025 07/12/2024 Procedures * Due to [place] [email or web address] law, this organization might not be sharing negative HIV tests. Procedure Name Priority Date/Time Associated Diagnosis Comments BASIC METABOLIC PANEL STAT 07/12/2024 1:28 PM EST from Last 3 Months or Most Recently Relevant to Health Maintenance Results * Due to [place] [employer] law, this organization might not be sharing [...] Camacho MD LAB BLOOD ORDERABLES Final [facility] Organization Address City/State/ZIP Co de Phone Number [facility] [address] [place], [place] [id number], from Last 3 Months or Most Recently Relevant to Health Maintenance Insurance [employer] Care Teams Medical Detail Representative Relationship Specialty Start Date End Date Carrie Marshall [address] [place] [address] [place] [address] PCP - General Internal Medicine 07/12/24
--- OUTSIDE RECORDS SUMMARY | 2025-05-01 07:20 | XMS_ITS | Encounter Summary ---
Author Organization [email or web address] [facility] Address [address] [place] [address] [address] [place] [address] Care Team Providers Care Director Telehealth Name Role Phone Unavailable Primary Care Provider Unavailabl e Encounter Details Date Type Department Care Team (Latest Contact Info) Description 09/26/2018 Abstract [facility] CONVERSIONS Dental, Provider, DDS Social [...]
--- OUTSIDE RECORDS SUMMARY | 2025-05-01 07:21 | XMS_ITS | Encounter Summary ---
Author Organization [facility] Address [address] [place] [address] Care Team Providers Care Luggage Repairer Name Role Phone Carrie Marshall MD Primary Care Provider [phone] Encounter Details Date Type Department Care Team (Latest Contact Info) Description 03/07/2025 Lab Requisition [facility] - Main Lab [address] [place] [phone] Wilberto Prado MD [address] [phone] Postmenopausal bleeding Social History Tobacco Use Types [...] or neoplasm identified 03/10/2025 10:36 AM EDT [facility] at 1036 EDT Comment I am unable to determine from this specimen the cause of the endometrial breakdown. 03/10/2025 10:36 AM EDT [facility] Clinical Information PMB 03/10/2025 10:36 AM EDT [facility] Gross Description A. Endometrium, biopsy: Labeled with the patient's name and information. Received in formalin is a 1.1 cm aggregate of irregular dark red tissue fragments which is submitted in toto in a mesh bag in one cassette, multiple pieces, x 2. ELIDA 03/10/2025 10:36 AM EDT [facility] Disclaimer Unless otherwise specified, all tissue is 10% NB formalin fixed and paraffin embedded. 03/10/2025 10:36 AM EDT [facility] Tissue Endometrial structure / Unknown 03/07/2025 03/07/2025 12:56 PM EDT us Wilberto Prado MD LAB PATHOLOGY ORDERABLES Final Result [facility] [address] [place] [address], documented in this encounter Visit Diagnoses Diagnosis Postmenopausal bleeding documented in this encounter Care Teams Luggage Repairer Relationship Specialty Start Date End Date Carrie Marshall MD [address] [place] [address] Dr [address]andon [address] [facility] [place] [address] PCP - General Internal Medicine 06/21/12 documented as of this encounter
--- OUTSIDE RECORDS SUMMARY | 2025-05-01 07:21 | XMS_ITS | Encounter Summary ---
Author Organization [facility] Address [address] [place] [address] Phone Care Team Providers Care Tactical Response Group Officer Name Role Phone Carrie Marshall MD Primary Care Provider [phone] Reason for Referral * Physical Therapy (Routine) - Closed Specialty Diagnoses / Procedures Referred By Aixa rogers Referred To Contact Physical Therapy Diagnoses Encounter for rehabilitation Interstitisal Cystitis Procedures Evaluate & Treat Maikol Hrading MD Phone: tel: [facility] [address] [place] [address] Phone: tel: Referral ID Status Reason Start Date Expiration Date Visits Re quested Visits Authorized [id number] Closed 01/08/2020 05/21/2020 13 13 Encounter Details Date Type Department Care Team (Latest Contact Info) Description 12/31/2019 Transcribe Orders [facility] [address] [place] [address] Maikol Harding MD [address] [place] [id number] Encounter for rehabilitation (Primary Dx) Social History [...] Date/Time Associated Diagnosis Comments AMB REFERRAL TO [facility] PHYSICAL THERAPY Routine 01/23/2020 3:22 PM EDT Encounter for rehabilitation documented in this encounter Results * Ambulatory referral to [facility] Physical Therapy (01/23/2020 3:22 PM EDT) us Maikol Harding MD AMB [facility] REFERRALS Final Result documented in this encounter Visit Diagnoses Diagnosis Encounter for rehabilitation- Primary documented in this encounter Care Teams Tactical Response Group Officer Relationship Specialty Start Date End Date Po, Carrie Martinez MD [address] [facility] [address] [place] [phone] PCP - General Internal Medicine 12/25/19 documented as of this encounter Additional Source Comments The information contained in this document represents components of the legal health record. It is not the complete legal health record.[facility]
--- OUTSIDE RECORDS SUMMARY | 2025-05-01 07:21 | XMS_ITS | Clinical Summary ---
Author Organization [facility] Address [address] [place] [address] Phone Care Team Providers Care Boning Room Worker Name Role Phone Carrie Marshall MD Primary Care Provider [phone] Encounters Date Type Department Care Team Description 03/07/[address] [facility] [address] [place] [phone] Wilberto Prado MD Postmenopausal bleeding 03/07/[address] [facility] [address] [place] [phone] Wilberto Prado MD Postmenopausal bleeding from Last [...] neoplasm identified 03/10/2025 10:36 AM EDT [facility] at 1036 EDT Comment I am unable to determine from this specimen the cause of the endometrial breakdown. 03/10/2025 10:36 AM EDT [facility] Clinical Information PMB 03/10/2025 10:36 AM EDT [facility] Gross Description A. Endometrium, biopsy: Labeled with the patient's name and information. Received in formalin is a 1.1 cm aggregate of irregular dark red tissue fragments which is submitted in toto in a mesh bag in one cassette, multiple pieces, x 2. ELIDA 03/10/2025 10:36 AM EDT [facility] Disclaimer Unless otherwise specified, all tissue is 10% NB formalin fixed and paraffin embedded. 03/10/2025 10:36 AM EDT [facility] Tissue Endometrial structure / Unknown 03/07/2025 03/07/2025 12:56 PM EDT us Wilberto Prado MD LAB PATHOLOGY ORDERABLES Final Result [facility] [address] [place] [address], * Pap smear (03/07/2025 12:00 AM EDT) Interpretation Negative for intraepithelial lesion or malignancy 03/19/2025 12:27 PM EDT [facility] at 1227 EDT General Categorization Negative 03/19/2025 12:27 PM [facility] Specimen Adequacy Satisfactory for evaluation, endocervical/crawford sformation zone component present 03/19/2025 12:27 PM EDT [facility] Pap Methodology Liquid Based Pap Test 03/19/2025 12:27 PM EDT [facility] Disclaimer The Pap test is a screening test which carries an inherent false negative rate. These test results should be correlated with the patient's clinical findings and history. This Pap test was processed using an automated screening system. Technical cytopathology services provided by [facility], at [address] [place] [address], [place] [address] (CLIA # [id number]/Corinne Noriega MD, Cotton Stripper.) 03/19/2025 12:27 PM T [facility] Console Pap Interpretation Reported 03/19/2025 12:27 PM [facility] Brushing/Spatula Cervix uteri structure / Unknown 03/07/2025 03/07/2025 2:17 PM EDT us Wilberto Prado MD LAB CYTOLOGY ORDERABLES Final Result [facility] [address] [place] [address], [place] [phone] from Last 3 Months Insurance [facility] [employer] Care Teams Boning Room Worker Relationship Specialty Start Date End Date Carrie Marshall MD [address] [place] [address] Dr Barbi Lester [facility] [place] [address] PCP - General Internal Medicine 06/21/12
--- OUTSIDE RECORDS SUMMARY | 2025-05-01 07:21 | XMS_ITS | Encounter Summary ---
Author Organization [facility] Address [address] [place] [address] Care Team Providers Care Rheostat Assembler Name Role Phone Carrie Marshall MD Primary Care Provider [phone] Encounter Details Date Type Department Care Team (Latest Contact Info) Description 03/07/2025 Lab Requisition [facility] - Main Lab [address] [place] [phone] Wilberto Prado MD [address] [phone] Postmenopausal bleeding Social History Tobacco Use Types [...] lesion or malignancy 03/19/2025 12:27 PM EDT [facility] at 1227 EDT General Categorization Negative 03/19/2025 12:27 PM EDT [facility] Specimen Adequacy Satisfactory for evaluation, endocervical/crawford sformation zone component present 03/19/2025 12:27 PM EDT [facility] Pap Methodology Liquid Based Pap Test 03/19/2025 12:27 PM EDT [facility] Disclaimer The Pap test is a screening test which carries an inherent false negative rate. These test results should be correlated with the patient's clinical findings and history. This Pap test was processed using an automated screening system. Technical cytopathology services provided by [facility], at [address] [place] [address] (CLIA # [id number]/Corinne Noriega MD, Power Truck Driver.) 03/19/2025 12:27 PM EDT [facility] Console Pap Interpretation Reported 03/19/2025 12:27 PM EDT [facility] Brushing/Spatula Cervix uteri structure / Unknown 03/07/2025 03/07/2025 2:17 PM EDT us Wilberto Prado MD LAB CYTOLOGY ORDERABLES Final Result [facility] [address] [place] [address], documented in this encounter Visit Diagnoses Diagnosis Postmenopausal bleeding documented in this encounter Care Teams Rheostat Assembler Relationship Specialty Start Date End Date Carrie Marshall MD [address] [place] [address] Dr [address] [facility] [place] [address] PCP - General Internal Medicine 06/21/12 documented as of this encounter
== END 2025-05-01 09:47 | disposition home or self-care (01) ==
LOC: HO.HUSH 07:17
PROVIDERS: PCP Internal Medicine; Visit Provider Urology
DX: N30.10 Interstitial cystitis (chronic) without hematuria (principal); R10.20 Pelvic and perineal pain unspecified side; R39.89 Other symptoms and signs involving the genitourinary system
CPT/HCPCS: 99213

== ENCOUNTER 2025-05-07 14:30 | Outpatient (REF) | payer OTHER, SELFPAY ==
--- NOTE | ~2025-05-07 | XR_ITS ---
EXAMINATION: XR CHEST 2 VIEWS HISTORY: R05.9 - Cough, unspecified COMPARISON: Comparison is made with the prior examination dated 07/01/2020. FINDINGS: PA and lateral views of the chest are submitted. There is a small patchy airspace opacity in the lingula, suspicious for pneumonia. The right lung is clear. There is no pleural effusion, pneumothorax, or pulmonary vascular congestion. The heart is normal in size. There is degenerative disc disease of the spine. XR/XR chest 2V IMPRESSION: Lingular pneumonia. Follow-up is recommended to document resolution. Electronically signed by: Vineet Jaramillo MD 05/07/2025 03:54 PM [facility]
[2025-05-07 18:06] LABS: Resp Syncy Virus RNA Qual PCR NEGATIVE (Negative); SARS COV2 PCR INHOUSE NEGATIVE (Negative)
--- OUTSIDE RECORDS SUMMARY | 2025-05-07 20:00 | XMS_ITS | Clinical Summary ---
Author Organization [employer] [facility] Address [address] [facility] [address] [place] [address] Care Team Providers Care Fruit Harvester Machine Operator Name Role Phone Unavailable Primary [...] MCG/ACT aerosol powder 3 Active HYDROcodone-fabrice taminophen (Erath) 5-325 MG tablet TAKE ONE TABLET BY [...] Description 02/06/2025 9:00 AM EDT Office Visit [facility]ULT [facility] [address] [place] [address] Coats-Salas, Elizabeth, DDS Necrosis of dental pulp (Primary Dx); Dental root caries from Last 3 Months Social History Tobacco [...] ANTERIOR TOOTH Routine 02/06/2025 9:00 AM EDT PROPHYLAXIS - ADULT Routine 10/10/2024 3 :00 PM EDT Dental calculus Dental plaque INTRAORAL - COMPLETE SERIES OF RADIOGRAPHIC IMAGES Routine 10/10/2024 3:00 PM EDT PERIODIC ORAL EVALUATION - ESTABLISHED PATIENT Routine 10/10/2024 3:00 PM EDT from Last 3 Months or Most Recently Relevant to Health Maintenance [facility] STAND ADULT
--- OUTSIDE RECORDS SUMMARY | 2025-05-07 20:00 | XMS_ITS | Encounter Summary ---
Author Organization [employer] [facility] Address [address] [place] [address] [address] [address] Care Team Providers Care Automotive Repair Technician Name Role Phone Unavailable Primary Care Provider Unavailabl e Encounter Details Date Type Department Care Team (Latest Contact Info) Description 05/05/2021 Abstract [facility] CONVERSIONS Dental, Provider, DDS Social History [...]
--- OUTSIDE RECORDS SUMMARY | 2025-05-07 20:00 | XMS_ITS | Encounter Summary ---
Author Organization [employer] Address [address] [place] [address] [address] [place] [address] Care Team Providers Care Lime Kiln Worker Name Role Phone Unavailable Primary Care Provider Unavailabl e Reason for Visit * Reason Onset Date Comments Dr. Marques Medication clarification 02/04/2025 Encounter Details Date Type Department Care Team ([facility] st Contact Info) Description 02/04/2025 Telephone [facility] ADULT D[facility] [address] [place] [address] Trent Marques DDS [address] [place] [address] Dr. Marques Medication clarification Social History Tobacco [...] both scripts. Please reach out to pharmacy [phone]. documented in this encounter Plan of Treatment Not on file documented as of this encounter Visit Diagnoses Not on filedocumented in this encounter
--- OUTSIDE RECORDS SUMMARY | 2025-05-07 20:00 | XMS_ITS | Encounter Summary ---
Author Organization [employer] [facility] Address [address] [place] [address] [address] [place] [address] Care Team Providers Care Vehicle Modification Technician Name Role Phone Unavailable Primary Care Provider Unavailabl e Encounter Details Date Type Department Care Team (Latest Contact Info) Description 09/26/2018 Abstract [facility] CONVERSIONS Dental, Provider, DDS Social History [...]
== END 2025-05-07 14:31 | disposition home or self-care (01) ==
LOC: HO.HMGCX 14:30
PROVIDERS: PCP Internal Medicine; Visit Provider Physician Assistant Medical
DX: R05.1 Acute cough (principal); R09.89 Other specified symptoms and signs involving the circulatory and respiratory systems
CPT/HCPCS: 71046; 87637; 99212

== ENCOUNTER 2025-05-07 14:30 | Outpatient (AMB) | payer OTHER, SELFPAY ==
--- OUTSIDE RECORDS SUMMARY | 2025-05-05 15:40 | XMS_ITS | Encounter Summary ---
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 Name Role Phone aCrrie Marshall MD Primary Care Provider Reason for Visit * Reason Comments Mental Health Problem Encounter Details Date Type Department Care Team (Latest Contact Info) Description 05/05/2025 3:40 PM EST - 05/06/2025 11:16 AM EST Hospital Encounter [facility] [address] [place] [id number] Torey Montano MD [address] [place] [id number] Annie Banks MD [address] [place] [phone] [email or web address] Estrellita Burgos MD [address] [place] [id number] [email or web address] Discharge Disposition: Home or Self Care Social History Tobacco Use Types Packs/Day Years [...] with a working camera? Not on file Intimate Partner Violence Answer Date R ecorded Are you denied basic needs s uch as food, clothing, or medical care? No 05/05/2025 In the past 12 months have y ou been in a relationship with a person who hurts, threatens, or tries to control you? No 05/05/2025 Are you denied basic needs s uch as food, clothing, or medical care? No 05/05/2025 In the past 12 months have y ou been in a relationship with a person who hurts, threatens, or tries to control you? No 05/05/2025 Comments Unknown Sex and Gender Information Value Date Recorded Sex Assigned at Female 05/05/2025 4:06 PM EST Legal Sex Female 6:32 PM EST Gender Identity Female 05/05/2025 4:06 PM EST Sexual Orientation Straight 05/05/2025 4: 06 PM EST documented as of this encounter Last Filed Vital Signs Vital Sign Reading Time Taken Comments Blood Pressure 119/83 05/06/2025 9:09 AM EST Pulse 93 05/06/2025 9:09 AM EST Temperature 36.4 C (97.5 F) 05/06/2025 9:09 AM EST Respiratory Rate 18 05/06/2025 9:09 AM EST Oxygen Saturation 96% 05/06/2025 9:09 AM EST Inhaled Oxygen Concentration - - Weight 68 kg (150 lb) 05/05/2025 3:16 PM EST Height 165.1 cm (5' 5 ) 05/05/2025 3:16 PM EST Body Mass Index 24.96 05/05/2025 3:16 PM EST documented in this encounter Functional Status * Calculated C-SSRS Risk Score (Lifetime/Recent) Answer Date of Assessment Author No Risk Indicated 05/06/2025 9:29 AM EST Valeria Bennett RN * [place] Suicide Severity Rating Scale (Screener/Recent Self-Report) Question Answer Date of Assessment Author 1. Wish to be (Past 1 Month) No 05/06/2025 9:29 AM EST Candice Bennett RN 2. Non-Specific Active Suici susan Thoughts (Past 1 Month) No 05/06/2025 9:29 AM EST Candiec Bennett RN 3. Active Suicidal Ideation with any Methods (Not Plan) Without Intent to Act (Past 1 Month) No 05/06/2025 9:29 AM Candice Graham RN 4. Active Suicidal Ideation with Some Intent to Act, Without Specific Plan (Past 1 Month) No 05/06/2025 9:29 AM Candice Graham RN 5. Active Suicidal Ideation with Specific Plan and Intent (Past 1 Month) No 05/06/2025 9:29 AM Candice Graham RN 6. Suicidal Behavior (Lifetime) No 9:29 AM Candice Graham RN documented as of this encounter Discharge Summaries * Yulia Olivas PA-C - 05/06/2025 10:53 AM EST Emergency Department Observation Disposition Note Arrival Date: 05/05/2025 Chief Complaint Patient presents with Mental Health Problem Observation course: Wendy Shabazz is a 55 y.o. female, h/o MDD, who presents to the emergency department with depression and SI. Initial medical workup was unremarkable. Patient was evaluated by VERIFICATION REP and recommended for inpatient psychiatric hospitalization. This morning, patient was reassessed after initial evaluation for suicidal ideation. Seen and evaluated by the VERIFICATION REP again. At time of reassessment, patient reports feeling sad but denies SI/HI/AVH. Patient denies plan or intent and states they feel able to remain safe at home.' Crisis evaluation completed and patient cleared for discharge with outpatient resources. Patient verbalized understanding and agreement with the plan. Patient demonstrates appropriate insight and judgment, is future-oriented, and able to contract [place]. No acute psychosis or intoxication noted. Plan for discharge home per VERIFICATION REP recommendations. Patient given strict return precautions, including to return immediately for worsening depression, any suicidal or homicidal thoughts, inability to maintain safety, hallucinations, or any other concerning symptoms. Patient verbalized understanding. Test results: No orders to display Results for orders placed or performed during the hospital encounter of 05/05/25 CBC and Differential Specimen: Blood Result Value Ref Range WBC 5.67 4.00 - 11.00 K/uL RBC 4.60 4.00 - 5.20 M/uL Hemoglobin 13.1 12.0 - 16.0 g/dL Hematocrit 39.8 36.0 - 46.0 % MCV 86.5 80.0 - 100.0 fL MCH 28.5 27.0 - 31.0 pg MCHC 32.9 32.0 - 36.0 g/dL MPV 10.4 8.4 - 12.0 fL RDW-CV 12.6 11.5 - 14.5 % PLT 250 150 - 450 K/uL Neutrophils 48.8 % Lymphocytes 42.3 % Monocytes 7.1 % Eosinophils 1.1 % Basophils 0.5 % Imm Grans 0.2 % NRBC 0.0 <=0.0 /100 WBCs Absolute Neutrophils 2.77 1.92 - 7.60 K/uL Absolute Lymphocytes 2.40 0.72 - 4.10 K/uL Absolute Monocytes 0.40 0.16 - 1.10 K/uL Absolute Eosinophils 0.06 0.00 - 0.50 K/uL Absolute Basophils 0.03 0.00 - 0.15 K/uL Absolute Imm Grans 0.01 0.00 - 0.09 K/uL Absolute NRBC 0.00 <=0.00 K cells/uL Absolute Neutrophils 2.77 1.92 - 7.60 K/uL Diff Type Auto Human Chorionic Gonadotropin (HCG), Qualitative, Blood Specimen: Blood Result Value Ref Range hCG Qualitative Negative Negative Ethanol, Blood Specimen: Blood Result Value Ref Range Ethanol <10 Negative; <11 mg/dL Hepatic Panel (LFTs) Specimen: Blood Result Value Ref Range AST 19 <33 U/L ALT 17 <34 U/L Alkaline Phosphatase 67 40 - 130 U/L Bilirubin, Total 0.4 0.0 - 1.2 mg/dL Bilirubin, Direct 0.1 0.0 - 0.3 mg/dL Total Protein 7.3 6.4 - 8.3 g/dL Albumin 4.8 3.5 - 5.2 g/dL Globulin 2.5 1.9 - 4.1 g/dL Basic Metabolic Panel (BMP) Specimen: Blood Result Value Ref Range Sodium 143 136 - 145 mmol/L Potassium 3.9 3.4 - 5.1 mmol/L Chloride 107 98 - 107 mmol/L CO2 26 20 - 31 mmol/L BUN 10 6 - 23 mg/dL Creatinine 0.70 0.50 - 1.00 mg/dL Glucose 105 (H) 70 - 99 mg/dL Calcium 9.9 8.5 - 10.5 mg/dL eGFR 102 >59 mL/min/1.73m2 Anion Gap 10 3 - 17 mmol/L Brief discharge exam: BP 119/83 Pulse 93 Temp 36.4 ??C (97.5 ??F) (Oral) Resp 18 Ht 165.1 cm (5' 5 ) Wt 68 kg (150 lb) SpO2 96% BMI 24.96 kg/m?? Constitutional: Afebrile, nontoxic in appearance, in NAD. Cardiovascular: Regular rate. Hands and feet warm and well-perfused. Respiratory: Speaking in full sentences, no respiratory distress. MS: Moving all extremities. Neuro: Patient alert and oriented. Non-focal. Skin: Warm, dry. Psych: Mood depressed. Denies SI/HI/AH/VH. Cooperative. Vital signs reviewed. Nurses notes reviewed. Diagnosis: Clinical Impression Diagnosis Description Comment Final diagnosis Depression with suicidal ideation Depression with suicidal ideation -- Final Disposition: Discharged Disposition plan: Home Communication with outpatient providers: per VERIFICATION REP Discharge management: 30 minutes or less spent on discharge management on the observation dischargeday. Yulia Olivas PA-C Cosigned by Estrellita Burgos MD at 05/06/2025 3:30 PM EST Associated attestation - Estrellita Burgos MD - 05/06/2025 3:30 PM EST I confirm that I have reviewed and agree with the plan from the [facility]. documented in this encounter Discharge Instructions * Discharge Instructions* Yulia Olivas PA-C - 05/06/2025 10:32 AM EST You are being discharged home today. The VERIFICATION REP and emergency department medical team have carefully evaluated you and determined that you are safe to go home with the right support and plan in place. Understanding Your Condition Depression is a medical condition that affects how you feel, think, and handle daily activities. Sometimes depression can lead to thoughts of suicide. Having these thoughts does not mean you are weak--it means you need support and treatment, which are available and effective. Your Safety Plan You have discussed a personalized safety plan to help you stay safe with VERIFICATION REP. This plan is your roadmap for managing difficult moments until the urge to harm yourself passes. Making Your Home Safer An important part of staying safe is reducing access to lethal means of suicide. This includes:[1] Storing or removing firearms from your home Limiting access to medications by having someone else hold them and give you only daily doses Removing other items that could be used for self-harm Ask a trusted family member or friend to help you with this. Avoiding Alcohol and Drugs Do not use alcohol or recreational drugs, as these can increase impulsive behavior and make suicidal thoughts worse. Follow-Up Care Attending your follow-up appointment is critical. You should have an appointment scheduled with a mental health provider. If you do not have an appointment yet, call to schedule one within the next few days. Studies show that patients who attend follow-up care after an emergency department visit have better outcomes. You may receive follow-up phone calls to check on how you are doing and help you stay connected to care. These calls are part of your treatment and have been shown to reduce suicidal behavior. Crisis Resources Available 12/12 If you are in crisis or having thoughts of suicide: Call or text 988 for the Suicide and Crisis Lifeline (available 12/12) Call 911 or go to the nearest emergency department Use your safety plan and contact the people listed on it Do not wait--reach out immediately when you need help When to Return to the Emergency Department Return to the emergency department immediately or call 911 if: You have thoughts of harming yourself or others You have made a plan to harm yourself You feel you cannot keep yourself safe Your depression symptoms suddenly worsen You are unable to care for yourself Important Reminders Depression is treatable, and you can feel better with the right support Having suicidal thoughts does not mean you will always feel this way Reaching out for help is a sign of strength, not weakness Your safety plan and follow-up care are proven tools that work Feel better!! documented in this encounter Consult Notes Only the most recent of 2 notes is shown. * Angelica Meyer - 05/06/2025 11:36 AM EST VERIFICATION REP Crisis Mental Status Update: The client was evaluated by VERIFICATION REP Crisis on 05/05/25 due to mood disturbance and passive suicidal ideation. Wendy said last night she was feeling exhausted and terrified by how she was feeling. At that time, she was voluntary for inpatient psychiatric hospitalization. However, she has now requested to leave the ED because she believes her daughter will not do well with her being away. She is not on a section 12. Wendy is a 55-year-old, , female who is alert and fully oriented. Mood is reported as tired and sad . Affect is congruent. Speech is soft. Eye contact is avoidant. She denied SI/HI/AVH/SIB and any past suicide attempts. Sleep is reported as terrible . Wendy sleeps between 4 and 12 hours per night. Appetite is wnl, as she said she eats 2-3 meals daily. Insight is intact. Impulse control and judgement are within normal limits. Appearance is normal. Wendy is wearing a hospital gown and sitting in the hospital bed. No psychomotor agitation noted. Thought process is linear. TW called the client's daughter's father, Gunnar Gallegos. Gunnar said he does not have any safety concerns regarding her mental health. He said he is worried about her high blood pressure. He said shedoes not have any past suicide attempts. Gunnar said she has not reported suicidal ideation to him. He feels that she can safely return home. Consulted with VERIFICATION REP regulation supervisor TINO Alves and [facility] ED provider Estrellita Steele MD. It was determined that the client is safe to discharge home. Wendy engaged with this clinician to complete safety planning and agreed to a partial hospitalization program. The client was informed that she can come into the VERIFICATION REP office in [place] for Crisis evaluations in the future. Wendy expressed gratitude for this information and stated she did not know that. In addition, [facility] will provide follow-upcalls for the next three days. VERIFICATION REP clinician also gave the client the VERIFICATION REP number to call for phone support and address. TW also gave the client a text support number. Wendy said she will follow-up with her current behavioral health outpatient providers for therapy and medication management. documented in this encounter ED Notes * Candice Bennett RN - 05/06/2025 11:24 AM EST ED Nursing Progress Note Belongings provided back to patient and patient walked out by tech * Candice Bennett RN - 05/06/2025 9:21 AM EST ED Nursing Progress Note VERIFICATION REP at bedside * Sonia Viera RN - 05/06/2025 8:30 AM EST ED Nursing Progress Note Patient tearful, stating that she does not feel safe in the pod d/t other patients. She says she was not treated fairly overnight. VERIFICATION REP made aware of patient's feelings, stated that she has a bed on [address]. Patient declined bed. VERIFICATION REP aware of refusal. * Disha Peña RN - 05/06/2025 5:48 AM EST ED Nursing Progress Note Inhaler verified with pharmacy, administered. Patient labile with emotions, asking to be dischargedhome, will inquire with physician and VERIFICATION REP. * Disha Peña RN - 05/06/2025 4:41 AM EST ED Nursing Progress Note Assumed care, patient in bed awake, stating she is short of breath, and hasn't gotten any of her meds. Educated patient about medication verification process, vitals taken, comfort measures offered, will speak to provider about advair inhaler. Will await new orders and continue to monitor. * Pamela Storey RN - 05/05/2025 8:12 PM EST ED Nursing Progress Note Patient provided with phone. In bed on phone at this time. Attempted to call pharmacy to verify medications, no record of medications sent or picked up from pharmacy provided. Will clarify preferred pharmacy with patient. * Candice Mason PA-C - 05/05/2025 7:53 PM EST Emergency Department Observation Initial Note Arrival Date: 05/05/2025 Chief Complaint Patient presents with Mental Health Problem History of Present Illness: Wendy Shabazz is a 55 y.o. female, h/o MDD, here with depression and SI. ED Course: Patient presented with primary psychiatric complaints. Medical screen was unremarkable. The patientwas medically cleared for VERIFICATION REP evaluation. The patient was evaluated by VERIFICATION REP who recommended inpatient psychiatric hospitalization. The patient was placed in ED psychiatric observation status for continued monitoring and reassessments while awaiting placement. Relevant past medical history: No past medical history on file. Social history: Social History Socioeconomic History Marital status: Single Spouse name: Not on file Number of children: Not on file Years of education: Not on file Highest education level: Not on file Occupational History Not on file Tobacco Use Smoking status: Not on file Smokeless tobacco: Not on file Substance and Sexual Activity Alcohol use: Not on file Drug use: Not on file Sexual activity: Not on file Other Topics Concern Not on file Social History Narrative Not on file Family history: No family history on file. Physical Exam: Constitutional: Afebrile, nontoxic in appearance, in NAD. Cardiovascular: Regular rate. Hands and feet warm and well-perfused. Respiratory: Speaking in full sentences, no respiratory distress. MS: Moving all extremities. Neuro: Grossly non-focal. Vision is grossly intact to both eyes, EOM grossly intact, PERRL. Hearingis grossly intact to both ears. No olfactory deficits are noted. No obvious facial sensory deficitsare noted. Motor function of the face is equal and symmetric. Shoulder shrug is intact. Tongue is in the midline. Skin: Warm, dry. Psych: Mood congruent. Denies HI/AH/VH. Cooperative. Vital signs reviewed. Nurses notes reviewed. Observation Medical Decision Making and Plan: Continue bed search per VERIFICATION REP recommendations Ongoing mental health evaluation and treatment pending disposition as determined by VERIFICATION REP Routine psych consult at 24 hours, appreciate recommendations Continue home meds Disposition endpoints: If VERIFICATION REP finds an inpatient bed, then the patient will be admitted or transferred to the appropriate facility. VERIFICATION REP to reassess need for inpatient psychiatric placement. Section 12: No Discussed ED Obs Plan with Dr. Montano (ED Attending) Candice Mason PA-C Cosigned by Torey Montano MD at 05/06/2025 8:44 PM EST Associated attestation - Torey Montano MD - 05/06/2025 8:44 PM EST I personally saw the patient as part of a shared visit with the advanced practice practitioner. I performed a substantive portion of the visit including all aspects of the medical decision making as documented. I participated in the disposition of the patient to Observation status. Please see the ED record for further details. * Anastasiya Figueroa RN - 05/05/2025 3:55 PM EST Pt allowed crocs to wear and reading book. Book was thoroughly checked * Alexandrea Denton RN - 05/05/2025 3:14 PM EST Patient presents to ED seeking inpatient psychiatric admission and a medication review. Patient reports last week started with a breakdown . Patient reports she has thought about suicide but has a daughter who olvin her from that. Patient is calm but withdrawn. * Candice Mason PA-C - 05/05/2025 3:06 PM EST Chief Complaint Chief Complaint Patient presents with Mental Health Problem History of Present Illness The patient, Wendy Shabazz,is a 55 y.o. female who presents for evaluation of Mental Health Problem The patient is a 55-year-old female with past medical history of major depressive disorder who presents to the ER for mental health help. She reports that she has been having worsening depression and thoughts about suicide recently. She states that she would not commit suicide because she has a daughter. No plan. No history of attempts in the past. Recent triggers include [facility] She also reports medication changes over the past few months. Denies any acute medical concerns. No drug use. Unless otherwise specified, I have reviewed and agree with the triage and nursing notes. ROS A ten point review of systems was negative except what was noted in the HPI. Review of Systems Past Medical History No past medical history on file. Past Surgical History No past surgical history on file. Home Medications Prior to Admission medications Not on File Allergies Allergies Allergen Reactions Lactose GI Upset Social and Family History Social History Tobacco Use Smoking status: Not on file Smokeless tobacco: Not on file Substance Use Topics Alcohol use: Not on file Social History Substance and Sexual Activity Drug Use Not on file No family history on file. Physical Exam Vital Signs: ED Triage Vitals [05/05/25 1516] Encounter Vitals Group BP (!) 149/93 Girls Systolic BP Percentile Girls Diastolic BP Percentile Boys Systolic BP Percentile Boys Diastolic BP Percentile Heart Rate (!) 103 Respiratory Rate 18 Temperature 36.9 ??C (98.5 ??F) Temp Source Temporal SpO2 98 % Weight 150 lb Height 5' 5 Head Circumference Peak Flow Pain Score Pain Loc Pain Education Exclude from Growth Chart Physical Exam Vitals and nursing note reviewed. Constitutional: General: She is not in acute distress. Appearance: Normal appearance. She is not ill-appearing. HENT: Head: Atraumatic. Nose: Nose normal. Mouth/Throat: Mouth: Mucous membranes are moist. Eyes: Conjunctiva/sclera: Conjunctivae normal. Pulmonary: Effort: Pulmonary effort is normal. Musculoskeletal: Cervical back: Neck supple. Skin: General: Skin is warm and dry. Neurological: General: No focal deficit present. Mental Status: She is alert and oriented to person, place, and time. Psychiatric: Attention and Perception: Attention normal. Mood and Affect: Mood is depressed. Speech: Speech normal. Behavior: Behavior normal. Laboratory Testing Results for orders placed or performed during the hospital encounter of 05/05/25 CBC and Differential Specimen: Blood Result Value Ref Range WBC 5.67 4.00 - 11.00 K/uL RBC 4.60 4.00 - 5.20 M/uL Hemoglobin 13.1 12.0 - 16.0 g/dL Hematocrit 39.8 36.0 - 46.0 % MCV 86.5 80.0 - 100.0 fL MCH 28.5 27.0 - 31.0 pg MCHC 32.9 32.0 - 36.0 g/dL MPV 10.4 8.4 - 12.0 fL RDW-CV 12.6 11.5 - 14.5 % PLT 250 150 - 450 K/uL Neutrophils 48.8 % Lymphocytes 42.3 % Monocytes 7.1 % Eosinophils 1.1 % Basophils 0.5 % Imm Grans 0.2 % NRBC 0.0 <=0.0 /100 WBCs Absolute Neutrophils 2.77 1.92 - 7.60 K/uL Absolute Lymphocytes 2.40 0.72 - 4.10 K/uL Absolute Monocytes 0.40 0.16 - 1.10 K/uL Absolute Eosinophils 0.06 0.00 - 0.50 K/uL Absolute Basophils 0.03 0.00 - 0.15 K/uL Absolute Imm Grans 0.01 0.00 - 0.09 K/uL Absolute NRBC 0.00 <=0.00 K cells/uL Absolute Neutrophils 2.77 1.92 - 7.60 K/uL Diff Type Auto Radiology Testing No orders to display MDM Assessment and Plan: There is no evidence of acute traumatic injury, acute infection, intoxication or withdrawal syndrome to a degree that would preclude further psychiatric evaluation or treatment. This patient is medically stable. VERIFICATION REP will be contacted for further evaluation and disposition. VERIFICATION REP proofreader evaluated patient, recommending voluntary inpatient level of care. I agree with their assessment and plan. Category 2 and 3: Independent Interpretation of Tests, Consideration of Tests, or External Discussion of Results: Labs: Laboratory studies were interpreted. Consults: The patient was discussed with Other Consulting Service, please see their documentation for additional details and recommendations. VERIFICATION REP crisis Risks of Complications, Morbidity, or Mortality: Risks: Risks and benefits of admission to the hospital discussed with patient. Critical Care Time: 0 minutes Clinical Impression None Disposition: Psych Bed Search Candice Mason PA-C 05/05/251922 documented in this encounter Plan of Treatment Scheduled Orders Name Type Priority Associated Diagnoses Orde r Schedule Toxicology Screen, Urine Lab STAT Once for 1 Occurrences starting 05/05/2025 until 05/05/2025 documented as of this encounter Procedures Procedure Name Priority Date/Time Associated Diagnosis Comments ETHANOL, BLOOD STAT 05/05/2025 4:27 PM EST HCG, SERUM QUALITATIVE STAT 05/05/2025 4:27 PM EST CBC AND DIFFERENTIAL STAT 05/05/2025 4:27 PM EST LFTS (HEPATIC PANEL) STAT 05/05/2025 4:27 PM EST CBC AND DIFFERENTIAL STAT 05/05/2025 4:27 PM EST BASIC METABOLIC PANEL (BMP) STAT 05/05/2025 4:27 PM EST documented in this encounter Results * CBC and Differential (05/05/2025 4:27 PM EST) WBC 5.67 4.00 - 11.00 K/uL 05/05/2025 4:34 PM EST [facility] RBC 4.60 4.00 - 5.20 M/uL 05/05/2025 4:34 PM EST [facility] Hemoglobin 13.1 12.0 - 16.0 g/dL 05/05/2025 4:34 PM [facility] Hematocrit 39.8 36.0 - 46.0 % 05/05/2025 4:34 PM [facility] MCV 86.5 80.0 - 100.0 fL 05/05/2025 4:34 PM [facility] MCH 28.5 27.0 - 31.0 pg 05/05/2025 4:34 PM [facility] MCHC 32.9 32.0 - 36.0 g/dL 05/05/2025 4:34 PM [facility] MPV 10.4 8.4 - 12.0 fL 05/05/2025 4:34 PM [facility] RDW-CV 12.6 11.5 - 14.5 % 05/05/2025 4:34 PM [facility] PLT 250 150 - 450 K/uL 05/05/2025 4:34 PM [facility] Neutrophils 48.8 % 05/05/2025 4:34 PM [facility] Lymphocytes 42.3 % 05/05/2025 4:34 PM [facility] Monocytes 7.1 % 05/05/2025 4:34 PM [facility] Eosinophils 1.1 % 05/05/2025 4:34 PM [facility] Basophils 0.5 % 05/05/2025 4:34 PM [facility] Imm Grans 0.2 % 05/05/2025 4:34 PM [facility] NRBC 0.0 <=0.0 /100 WBCs 05/05/2025 4:34 PM [facility] Absolute Neutrophils 2.77 1.92 - 7.60 K/uL 05/05/2025 4:34 PM [facility] [facility] Absolute Lymphocytes 2.40 0.72 - 4.10 K/uL 05/05/2025 4:34 PM [facility] Absolute Monocytes 0.40 0.16 - 1.10 K/uL 05/05/2025 4:34 PM [facility] Absolute Eosinophils 0.06 0.00 - 0.50 K/uL 05/05/2025 4:34 PM [facility] Absolute Basophils 0.03 0.00 - 0.15 K/uL 05/05/2025 4:34 PM [facility] Absolute Imm Grans 0.01 0.00 - 0.09 K/uL 05/05/2025 4:34 PM [facility] Absolute NRBC 0.00 <=0.00 K cells/uL 05/05/2025 4:34 PM [facility] Absolute Neutrophils 2.77 1.92 - 7.60 K/uL 05/05/2025 4:34 PM [facility] Comment:Automated cell count . Manual ANC may differ if performed. Diff Type Auto 05/05/2025 4:34 PM [facility] Blood (Blood) Venipuncture / Unknown 05/05/2025 4:27 PM EST 05/05/2025 4:31 PM EST Ce Sheth MD LAB BLOOD BKR ORDERABLES Fi nal Result Performing Organization Address City/[facility]/ZIP Co de Phone Number [address] [address] * Human Chorionic Gonadotropin (HCG), Qualitative, Blood (05/05/2025 4:27 PM EST) hCG Qualitative Negative Negative 5:42 PM [facility] Blood (Blood) Venipuncture / Unknown 05/05/2025 4:27 PM EST 05/05/2025 4:31 PM EST Ce Sheth MD LAB BLOOD BKR ORDERABLES Fi nal Result Performing Organization Address City/[facility]/ZIP Co de Phone Number [address] [address] * Ethanol, Blood (05/05/2025 4:27 PM EST) Ethanol <10 Negative; <11 mg/dL 05/05/2025 5:10 PM [facility] Blood (Blood) Venipuncture / Unknown 05/05/2025 4:27 PM EST 05/05/2025 4:31 PM EST us Ce Sheth MD LAB BLOOD BKR ORDERABLES Fi nal Result Performing Organization Address [facility]/ZIP Co de Phone Number [address] [address] * Hepatic Panel (LFTs) (05/05/2025 4:27 PM EST) AST 19 <33 U/L 05/05/2025 5:10 PM EST [facility] ALT 17 <34 U/L 05/05/2025 5:10 PM [facility] Alkaline Phosphatase 67 40 - 130 U/L 05/05/2025 5:10 PM [facility] Bilirubin, Total 0.4 0.0 - 1.2 mg/dL 05/05/2025 5:10 PM [facility] Bilirubin, Direct 0.1 0.0 - 0.3 mg/dL 05/05/2025 5:10 PM [facility] Total Protein 7.3 6.4 - 8.3 g/dL 05/05/2025 5:10 PM [facility] Albumin 4.8 3.5 - 5.2 g/dL 05/05/2025 5:10 PM [facility] Globulin 2.5 1.9 - 4.1 g/dL 05/05/2025 5:10 PM [facility] Blood (Blood) Venipuncture / Unknown 05/05/2025 4:27 PM EST 05/05/2025 4:31 PM EST us Ce Sheth MD LAB BLOOD BKR ORDERABLES Fi nal Result [address] [address] * (ABNORMAL) Basic Metabolic Panel (BMP) (05/05/2025 4:27 PM EST) Sodium 143 136 - 145 mmol/L 05/05/2025 5:10 PM EST [facility] Potassium 3.9 3.4 - 5.1 mmol/L 05/05/2025 5:10 PM [facility] Chloride 107 98 - 107 mmol/L 05/05/2025 5:10 PM [facility] CO2 26 20 - 31 mmol/L 05/05/2025 5:10 PM [facility] BUN 10 6 - 23 mg/dL 05/05/2025 5:10 PM [facility] Creatinine 0.70 0.50 - 1.00 mg/dL 05/05/2025 5:10 PM [facility] Glucose 105(H) 70 - 99 mg/dL 05/05/2025 5:10 PM [facility] Calcium 9.9 8.5 - 10.5 mg/dL 05/05/2025 5:10 PM [facility] eGFR 102 >59 mL/min/1.7 3m2 05/05/2025 5:10 PM [facility] Comment:Estimated glomerular filtration rate calculated using the CKD-EPI refit equation. Anion Gap 10 3 - 17 mmol/L 05/05/2025 5:10 PM [facility] Blood (Blood) Venipuncture / Unknown 05/05/2025 4:27 PM EST 05/05/2025 4:31 PM EST us Ce Sheth MD LAB BLOOD BKR ORDERABLES Fi nal Result Performing Organization Address City/State/[facility] Co de Phone Number [facility] [address] [place] [address] documented in this encounter Visit Diagnoses Diagnosis Depression with suicidal ideation- Primary Depression with suicidal ideation documented in this encounter Admitting Diagnoses Diagnosis Depression with suicidal ideation documented in this encounter Administered Medications Inactive Administered Medications - up to 3 most recent administrations Medication Order MAR Action Action Date Dose Rate Site fluticasone propion-salmeteroL (ADVAIR DISKUS) 250-50 mcg/dose diskus inhaler 1 puff 1 puff (250 mcg/actuation of fluticasone), Inhalation, 2 times daily, First dose on Mon05/06/25 at 0900, Pt supplied medication advair 250/50 (fluticasone/salmeterol) Rinse mouth and throat after each use., Drug Name: Advair (250-50), Form: Inhaler, Length of Therapy: Indefinite, How soon needed? (normally 72 hrs needed to procure): 0-24 hrs, Rationale for non-formulary use including previous trials of formulary agents: Other (specify in comments box), Can the patient supply their home medication? Yes Given 05/06/2025 5:47 AM EST 1 puff documented in this encounter Active and Recently Administered Medications Times are shown in EST. Scheduled Medication Order 05/04/2025 05/05/2025 05/06/2025 fluticasone propion-salmeteroL (ADVAIR DISKUS) 250-50 mcg/dose diskus inhaler 1 puff 1 puff (250 mcg/actuation of fluticasone), Inhalation, 2 times daily, First dose on Mon05/06/25 at 0900, Pt supplied medication advair 250/50 (fluticasone/salmeterol) Rinse mouth and throat after each use., Drug Name: Advair (250-50), Form: Inhaler, Length of Therapy: Indefinite, How soon needed? (normally 72 hrs needed to procure): 0-24 hrs, Rationale for non-formulary use including previous trials of formulary agents: Other (specify in comments box), Can the patient supply their home medication? Yes 0516 (Given - Provid er: Disha Peña RN)0911 (Not Given - Provider: Candice Bennett RN - Reason: Patient/family refused - Comment: patient took at 0600) documented in this encounter Care Teams Rice Cleaning Machine Tender Relationship Specialty Start Date End Date Carrie Marshall MD [address] [place] [phone] PCP - General Internal Medicine 12/25/19 documented as of this encounter Additional Source Comments The information contained in this document represents components of the legal health record. It is not the complete legal health record.[facility]
[2025-05-07 14:40] VITALS: BP 98/60; PULSE 104; TEMP 37; O2SAT 96; BMI 25.5
--- NOTE | 2025-05-07 14:40 | AM.OFFWIN_ITS ---
Intake Vital Signs 05/07/25 14:40 Height 5 ft 5 in Weight 153 lb BMI 25.5 BP 98/60 Blood Pressure Location Rt brachial Position Sitting Pulse 104 H Pulse Source Pulse Oximeter Temp 98.6 F Temp Source Oral Pulse Oximetry (%) 96 Oxygen Delivery Method Room Air Intake Visit Reasons: EP 102 fever, cough, chest congestion Intake Note: pt presents with chest congestion with painful dry coughing, sinus congestion, fevers, body aches, lethargic, headaches and head pressure x2 days Patient Tobacco Use Status: Never used Tobacco Allergies animal dander (ANIMAL HAIR) Allergy (Intermediate, Verified 05/07/25 14:47) ASTHMA, HIVES lactose (Lactose) Allergy (Mild, Verified 05/07/25 14:47) DIARRHEA pentosan polysulfate sodium (From [place]) Adverse Reaction (Intermediate, Verified 05/07/25 14:47) LFT elevation Do you need a note to return to daycare/school/sports/work: No HPI HPI Comments History of Present Illness Details History - The patient is a 55-year-old female pr esenting with a few-day history of general malaise, which worsened last night with the onset of high fever, severe body aches, significant congestion, and a painful, non-productive cough. - She reports associated diaphoresis, st ating she woke up soaking wet. - She denies nausea, vomiting, or diarrh ea. - She has been taking Benadryl, which pollard s provided slight relief of her symptoms. - She also reports intermittent left ear pain for the past week. - Her medical history is positive for as thma, for which she uses an Advair Diskus and has an albuterol inhaler for emergencies, though she is not currently experiencing shortness of breath. - She feels totally wiped out and rio eves her symptoms are similar to a past episode of pneumonia or bronchitis. - She has received her flu vaccine and r eports no sick contacts at home. Physical Exam General: Cooperative, healthy appearing, comfortable and no acute distress Orientation/consciousness: Patient oriented x3 Limitations: No limitations Head: Normal to inspection Ears: Hearing grossly normal bilaterally, external ears normal and TM's normal bilaterally. Nose: Normal external nose present, normal nares present, and no nasal discharge present. Face and sinus: Sinuses nontender to palpation. Mouth: Normal oral and palatal mucosa present and moist mucous membranes noted. Throat: Tonsils normal. Uvula is midline. Posterior oropharynx with erythema and no exudates. Eyes: Appearance normal, both eyes and all related structures Neck: Normal visual inspection, full ROM. No lymphadenopathy noted. Respiratory: Clear to auscultation bilaterally. Normal respiratory effort, able to speak in complete sentences. No respiratory distress, not tachypneic, no tripod positioning and no use of accessory muscles. Cardiovascular: Regular rate and rhythm. Normal S1 and S2 Skin: No rashes or lesions noted Patient was informed and verbally consented to the use of an ambient scribe for clinic note documentation during this visit [facility] Medical History Lumbar stenosis Pneumonia due to COVID-19 virus Hospital discharge follow-up Chronic pain of left ankle IBS (irritable bowel syndrome) Anxiety Depression Asthma Hx of flexible sigmoidoscopy COVID-19 vaccine series completed History of COVID-19 Dental abscess Dental infection Sinusitis, maxillary, chronic Acute sinusitis Diarrhea Cervical radiculopathy ASCUS (atypical squamous cells of undetermined significance) on gynecologic Papanicolaou smear complicating , antepartum Lumbar degenerative disc disease GERD (gastroesophageal reflux disease) Hypercholesterolemia Insomnia Hypertension Interstitial cystitis Degenerative disc disease, cervical Surgical History History of foot surgery Hx of cystoscopy (11/12/24) History of surgery History of neck surgery S/P cervical discectomy H/O nasal septoplasty History of ankle surgery Status post laparoscopic surgery History of wisdom tooth extraction Family History Father PTSD (post-traumatic stress disorder) Mental health disorder Mother No problems noted. Maternal Grandmother Breast cancer Maternal Grandfather Myocardial infarction Maternal Uncle Past heart attack Skin cancer Myocardial infarction Other Substance use disorder Social History Housing: House Are you a primary respiratory care technician to a significant other at home: No Do you presently have visiting nurse or other home services: No Alcohol intake: current Comment: once a week 2 drinks Patient Tobacco Use Status: Never used Tobacco Years Smoked: quit 2009, CBD, vaping e-Cigarette/Vaping Use: Never Used Second Hand Smoke Exposure: No service: No Current occupational status: unemployed Cognitive needs: No Hearing needs: No Vision needs: Yes Review of Systems Const All systems reviewed & are unremarkable except as noted in HPI and below Physical Exam Vital Signs: Last Vital Signs Temp 98.6 F 05/07/25 14:40 Pulse 104 H 05/07/25 14:40 BP 98/60 05/07/25 14:40 Pulse Ox 96 05/07/25 14:40 Oxygen Delivery Method Room Air 05/07/25 14:40 BMI result Body Mass Index 25.5 Results Reviewed Results Reviewed: will review CXR in the office Assessment & Plan Assessment & Plan (1) Cough: Code(s): R05.9 - Cough, unspecified Qualifiers: Cough type: acute Qualified Code(s): R05.1 - Acute cough Plan Most likely URI vs CAP vs covid vs flu vs RSV vs bronchitis vs viral illness plan - A nasal swab was performed to test for respiratory pathogens. - To rule out pneumonia given the patient's symptoms of high fever and cough, a chest x-ray has been ordered. - If the chest x-ray confirms pneumonia, a prescription for antibiotics will be sent to her pharmacy. - For symptomatic cough relief, Tessalon Perles (benzonatate) will be prescribed. - The patient's request for a codeine-based cough syrup was declined as narcotics are not prescribed from this urgent care facility. - Follow-up will occur via phone call to communicate the results of the nasal swab and chest x-ray. Orders: Orders SARS-CoV2/FLU/RSV Today R09.89 - Other specified symptoms and signs involving the circulatory and respiratory systems XR chest 2V Today R05.9 - Cough, unspecified Medications: New benzonatate 100 mg PO bid-tid PRN 21 caps 0RF Cough 7 days Coding Level of Care Code Est Pt Level 4 (46100) Diagnoses Acute cough R05.1 Cough type: acute
--- OUTSIDE RECORDS SUMMARY | 2025-05-07 19:25 | XMS_ITS | Clinical Summary ---
Author Organization [facility] Address [address] [place] [phone] Phone Care Team Providers Care Protective Signal Operations Supervisor Name Role Phone Carrie Marshall MD Primary Care Provider [phone] Allergies Active Allergy Reactions Criticality Noted Date Comments Lactose GI Upset 05/05/2025 Medications No known medications Active Problems Problem Noted Date Diagnosed Date Depression with suicidal ideation 05/05/2025 Encounters Date Type Department Care Team Description 05/05/2025 3:40 PM EST - 05/06/2025 11:16 AM EST Hospital Encounter [facility] [address] [place] [address] Torey Montano MD Fordjour, Natalie, MD Andrade, Olyn Amanda, MD Discharge Disposition: Home or Self Care from Last 3 Months Social History Tobacco [...] Orientation Straight 05/05/2025 4: 06 PM EST Last Filed Vital Signs Vital Sign Reading [...] Mass Index 24.96 05/05/2025 3:16 PM EST Plan of Treatment Health Maintenance Due Date [...] 03/15/2018, 04/18/2017, Additional history exists COVID-19 VACCINE (2 - season) 2025 08/31/2020 Adult Td,Tdap Booster 04/24/2025 [...] this topic Medical Devices Not on file Procedures Procedure Name Priority Date/Time Associated Diagnosis Comments CBC AND DIFFERENTIAL STAT 05/05/2025 4:27 PM EST HCG, SERUM QUALITATIVE STAT 05/05/2025 4:27 PM EST ETHANOL, BLOOD STAT 05/05/2025 4:27 PM EST LFTS (HEPATIC PANEL) STAT 05/05/2025 4:27 PM EST BASIC METABOLIC PANEL (BMP) STAT 05/05/2025 4:27 PM EST CBC AND DIFFERENTIAL STAT 05/05/2025 4:27 PM EST from Last 3 Months Results * Ethanol, Blood (05/05/2025 4:27 PM EST) Pathologist [facility] Ethanol <10 Negative; <11 mg/dL 05/05/2025 5:10 PM EST [facility] Blood (Blood) Venipuncture / Unknown 05/05/2025 4:27 PM EST 05/05/2025 4:31 PM EST us Ce Sheth MD LAB BLOOD BKR ORDERABLES Fi nal Result [facility] [address] [place] [address] * Human Chorionic Gonadotropin (HCG), Qualitative, Blood (05/05/2025 4:27 PM EST) [facility] hCG Qualitative Negative Negative 5:42 PM [facility] Blood (Blood) Venipuncture / Unknown 05/05/2025 4:27 PM EST 05/05/2025 4:31 PM EST us Ce Sheth MD LAB BLOOD BKR ORDERABLES Fi nal Result [facility] [address] [place] [address] * CBC and Differential (05/05/2025 4:27 PM EST) WBC 5.67 4.00 - 11.00 K/uL 05/05/2025 4:34 PM [facility] RBC 4.60 4.00 - 5.20 M/uL 05/05/2025 4:34 PM [facility] Hemoglobin 13.1 12.0 - 16.0 g/dL 05/05/2025 4:34 PM [facility] Hematocrit 39.8 36.0 - 46.0 % 05/05/2025 4:34 PM [facility] MCV 86.5 80.0 - 100.0 fL 05/05/2025 4:34 PM [facility] MCH 28.5 27.0 - 31.0 pg 05/05/2025 4:34 PM [facility] MCHC 32.9 32.0 - 36.0 g/dL 05/05/2025 4:34 PM [facility] MPV 10.4 8.4 - 12.0 fL 05/05/2025 4:34 PM [facility] RDW-CV 12.6 11.5 - 14.5 % 05/05/2025 4:34 PM [facility] PLT 250 150 - 450 K/uL 05/05/2025 4:34 PM [facility] Neutrophils 48.8 % 05/05/2025 4:34 PM [facility] Lymphocytes 42.3 % 05/05/2025 4:34 PM [facility] Monocytes 7.1 % 05/05/2025 4:34 PM [facility] Eosinophils 1.1 % 05/05/2025 4:34 PM [facility] Basophils 0.5 % 05/05/2025 4:34 PM [facility] Imm Grans 0.2 % 05/05/2025 4:34 PM [facility] NRBC 0.0 <=0.0 /100 WBCs 05/05/2025 4:34 PM [facility] Absolute Neutrophils 2.77 1.92 - 7.60 K/uL 05/05/2025 4:34 PM [facility] Absolute Lymphocytes 2.40 0.72 - 4.10 K/uL 05/05/2025 4:34 PM [facility] Absolute Monocytes 0.40 0.16 - 1.10 K/uL 05/05/2025 4:34 PM [facility] Absolute Eosinophils 0.06 0.00 - 0.50 K/uL 05/05/2025 4:34 PM [facility] Absolute Basophils 0.03 0.00 - 0.15 K/uL 05/05/2025 4:34 PM [facility] Absolute Imm Grans 0.01 0.00 - 0.09 K/uL 05/05/2025 4:34 PM [facility] Absolute NRBC 0.00 <=0.00 K cells/uL 05/05/2025 4:34 PM [facility] Absolute Neutrophils 2.77 1.92 - 7.60 K/uL 05/05/2025 4:34 PM [facility] Comment:Automated cell count . Manual ANC may differ if performed. Diff Type Auto 05/05/2025 4:34 PM [facility] Blood (Blood) Venipuncture / Unknown 05/05/2025 4:27 PM EST 05/05/2025 4:31 PM EST us Ce Sheth MD LAB BLOOD BKR ORDERABLES Fi nal Result [facility] [address] [place] [address] * Hepatic Panel (LFTs) (05/05/2025 4:27 PM EST) AST 19 <33 U/L 05/05/2025 5:10 PM [facility] ALT 17 <34 U/L 05/05/2025 5:10 PM [facility] Alkaline Phosphatase 67 40 - 130 U/L 05/05/2025 5:10 PM [facility] Bilirubin, Total 0.4 0.0 - 1.2 mg/dL 05/05/2025 5:10 PM [facility] Bilirubin, Direct 0.1 0.0 - 0.3 mg/dL 05/05/2025 5:10 PM [facility] Total Protein 7.3 6.4 - 8.3 g/dL 05/05/2025 5:10 PM [facility] Albumin 4.8 3.5 - 5.2 g/dL 05/05/2025 5:10 PM [facility] Globulin 2.5 1.9 - 4.1 g/dL 05/05/2025 5:10 PM [facility] Blood (Blood) Venipuncture / Unknown 05/05/2025 4:27 PM EST 05/05/2025 4:31 PM EST us Ce Sheth MD LAB BLOOD BKR ORDERABLES Fi nal Result [facility] [address] [place] [address] * (ABNORMAL) Basic Metabolic Panel (BMP) (05/05/2025 4:27 PM EST) Sodium 143 136 - 145 mmol/L 05/05/2025 5:10 PM [facility] Potassium 3.9 3.4 - 5.1 mmol/L 05/05/2025 5:10 PM [facility] Chloride 107 98 - 107 mmol/L 05/05/2025 5:10 PM [facility] CO2 26 20 - 31 mmol/L 05/05/2025 5:10 PM [facility] BUN 10 6 - 23 mg/dL 05/05/2025 5:10 PM [facility] Creatinine 0.70 0.50 - 1.00 mg/dL 05/05/2025 5:10 PM [facility] Glucose 105(H) 70 - 99 mg/dL 05/05/2025 5:10 PM EST [facility] Calcium 9.9 8.5 - 10.5 mg/dL 05/05/2025 5:10 PM [facility] eGFR 102 >59 mL/min/1.7 3m2 05/05/2025 5:10 PM [facility] Comment:Estimated glomerular filtration rate calculated using the CKD-EPI refit equation. Anion Gap 10 3 - 17 mmol/L 05/05/2025 5:10 PM [facility] Blood (Blood) Venipuncture / Unknown 05/05/2025 4:27 PM EST 05/05/2025 4:31 PM EST Ce Sheth MD LAB BLOOD BKR ORDERABLES Fi nal Result [facility] [address] [place] [address] from Last 3 Months Insurance ACO ACO ACO ACO ACO ACO ACO Member Subscriber Plan / Payer (Ef fective 2019-Present) Name:Wendy Shabazz Relation to Subscriber:Self Name:Wendy Shabazz Payer ID:[id number] Group ID:[id number] Type:Medicaid Address: [place] [id number] ACO [facility] ACO Care Teams Protective Signal Operations Supervisor Relationship Specialty Start Date End Date Carrie Marshall MD [address] [place] [address] Drive [address] [place] [phone] PCP - General Internal Medicine 12/25/19 Additional Source Comments The information contained in this document represents components of the legal health record. It is not the complete legal health record.[facility]
--- OUTSIDE RECORDS SUMMARY | 2025-05-07 19:25 | XMS_ITS | Encounter Summary ---
Author Organization [facility] Address [address] [place] [address] Care Team Providers Care Vessel Crew Member Name Role Phone Carrie Marshall MD Primary Care Provider [phone] Encounter Details Date Type Department Care Team (Latest Contact Info) Description 03/07/2025 Lab Requisition [facility] [address] [place] [phone] Wilberto Prado MD [address] [phone] Postmenopausal bleeding Social History Tobacco Use Types [...] lesion or malignancy 03/19/2025 12:27 PM EDT [facility]) [facility] at 1227 EDT General Categorization Negative 03/19/2025 12:27 PM EDT [facility] Specimen Adequacy Satisfactory for [...] screening system. Technical cytopathology services provided by [facility], at [address] [place] [address] (CLIA # [id number]/Corinne Noriega MD, Institutional Research Director.) 03/19/2025 12:27 PM EDT [facility] Console Pap Interpretation Reported 03/19/2025 12:27 PM EDT [facility] Brushing/Spatula Cervix uteri structure / Unknown 03/07/2025 03/07/2025 2:17 PM EDT us Wilberto Prado MD LAB CYTOLOGY ORDERABLES Final Result [facility] [address] [place] [address], documented in this encounter Visit Diagnoses Diagnosis Postmenopausal bleeding documented in this encounter Care Teams Vessel Crew Member Relationship Specialty Start Date End Date Carrie Marshall MD [address] [place] [address] [address] [facility] [place] [address] PCP - General Internal Medicine 06/21/12 documented as of this encounter
--- OUTSIDE RECORDS SUMMARY | 2025-05-07 19:25 | XMS_ITS | Clinical Summary ---
Author Organization [facility] Address [address] [place] [address] Care Team Providers Care Broke Beater Name Role Phone Carrie Marshall Primary Care Provider [phone] Allergies No known active allergies Social History [...] Panel 07/12/2025 07/12/2024 Procedures * Due to [place] law, this organization might not be sharing negative HIV tests. Procedure Name Priority Date/Time Associated Diagnosis Comments BASIC METABOLIC PANEL STAT 07/12/2024 1:28 PM EST from Last 3 Months or Most Recently Relevant to Health Maintenance Results * Due to [place] law, this organization might not be sharing [...] Camacho MD LAB BLOOD ORDERABLES Final Re [facility] Organization Address City/State/ZIP Co de Phone Number [facility] [address] [place], [place] [id number], from Last 3 Months or Most Recently Relevant to Health Maintenance Insurance [employer] Care Teams Broke Beater Relationship Specialty Start Date End Date Carrie Marshall [address] [place] [address] [place] [address] PCP - General Internal Medicine 07/12/24
--- OUTSIDE RECORDS SUMMARY | 2025-05-07 19:25 | XMS_ITS | Encounter Summary ---
Author Organization [facility] Address [address] [place] [address] Phone Care Team Providers Care Marble Mason Name Role Phone Carrie Marshall MD Primary Care Provider [phone] Reason for Referral * Physical Therapy (Routine) - Closed Specialty Diagnoses / Procedures Referred By Aixa rogers Referred To Contact Physical Therapy Diagnoses Encounter for rehabilitation Interstitisal Cystitis Procedures Evaluate & Treat Maikol Harding MD Phone: tel: [facility] [address] [place] [address] Phone: tel: Referral ID Status Reason Start Date Expiration Date Visits Re quested Visits Authorized [id number] Closed 01/08/2020 05/21/2020 13 13 Encounter Details Date Type Department Care Team (Latest Contact Info) Description 12/31/2019 Transcribe Orders [facility] [address] [place] [address] Maikol Harding MD [address] [place] [id number] Encounter for rehabilitation (Primary Dx) Social History Tobacco Use Types Packs/Day Years Used Date Smoking Tobacco: Never Assessed Comments Unknown Sex and Gender Information Value Date Recorded Sex Assigned at Female 05/05/2025 4:06 PM EST Legal Sex Female 6:32 PM EST Gender Identity Female 05/05/2025 4:06 PM EST Sexual Orientation Straight 05/05/2025 4: 06 PM EST documented as of this encounter Plan of Treatment Not on file documented as of this encounter Procedures Procedure Name Priority Date/Time Associated Diagnosis Comments AMB REFERRAL TO [facility] PHYSICAL THERAPY Routine 01/23/2020 3:22 PM EDT Encounter for rehabilitation documented in this encounter Results * Ambulatory referral to [facility] Physical Therapy (01/23/2020 3:22 PM EDT) Maikol Harding MD AMB [facility] REFERRALS Final Result documented in this encounter Visit Diagnoses Diagnosis Encounter for rehabilitation- Primary documented in this encounter Care Teams Marble Mason Relationship Specialty Start Date End Date Rolando, Carrie Martinez MD [address] [place] [address] [place] [phone] PCP - General Internal Medicine 12/25/19 documented as of this encounter Additional Source Comments The information contained in this document represents components of the legal health record. It is not the complete legal health record.[facility]
--- OUTSIDE RECORDS SUMMARY | 2025-05-07 19:25 | XMS_ITS | Data Portability ---
Author Organization [facility] [employer] Address [address] [place] [phone] Care Team Providers Care Incubator Tender Name Role Phone WILBER DACOSTA Referring Provider [...] do much more. She understands. DANAE Shabazz ([facility] September 05, 2023 Laboratories four metabolic [...] have clinical sites close to this area, [place] or close by [facility] such as [place] or [facility]. She understood and took some [...] or not imaging that was reassuring at [facility] emergency room included head imaging t [...] one stress reaction. She did well to wool puller when she was feeling lightheaded. She [...] have clinical sites close to this area, [place] or close by major centers such as [place] or [facility]. She understood and took some [...] None recorded. Lab vitamin B12, serum 024 [facility], [address] [place] [address], [address], 4 11:16:50 folate, serum 024 blanca 1 [facility], [address] [facility], [place], [address], 4 15:38:59 mma (methylma lonic acid), serum 024 [facility], [address] [place] [address], [address], 4 11:19:07 homocyste ine, serum or plasma 024 [facility], [address] [place] [address], [address], 4 11:19:12 TSH, serum or plasma - E07.9 024 [facility] 1 [facility], [address] [place] [address], [address], 4 15:39:00 T4, free, serum - E07.[address] [facility] 1 [facility], [address] [place] [address], [address], 4 15:39:00 vitamin D, 25-hydrox y, total, serum - E55.9 024 [facility] 1 [facility], [address] [place] [address], [address], 4 15:38:59 RPR (rapid plasma reagin), serum - A53.[address] [facility] 1 [facility], [address] [place] [address], [address], 4 15:39:00 Referral None recorded. Procedures None recorded. Surgeries None recorded. Imaging None recorded. Medication Orders None recorded. Patient TargetsNo targets recorded. Patient Instructions Encounter Date Encounter Id Patient Instructions Last Modified By Organization Details Last Modified Time 09/05/2023 [id number] Discussion acros s issues of diagnoses and management and same day associated chart review and management greater than 50% greater than 60 minutes mrossen Not available 09/05/2023 14:45:21 10/24/2023 [id number] Discussion acros s issues of diagnoses and management and same day associated chart review and management greater than 50% greater than 40 minutes mrossen Not available 10/24/2023 18:29:16 11/07/2024 [id number] Discussion acros s issues of diagnoses and [...] Not available 09/05/2023 [id number] RxNorm Veena Cisneros [facility] Neurology [facility] 4 13:09:32 Medications Name Sig Start Date [...] Updated DateTime 09/05/2023 165.1 cm 25 kg/m2 05598.86 g 12 /min Veena Cisneros [facility] 09/05/2023 13:09:20 Social History Question Answer Notes LastModified by Organizat ion Details LastModified Time Tobacco Smoking Status Never Smoker Veena guillen [facility] 09/05/2023 13:11:52 What Is Your Level Of Caffeine Consumption? Moderate 1 Cup Daily Information not available 09/05/2023 What Is The Highest Grade Or Level Of School You Have Completed Or The Highest Degree You Have Received? 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 876652894 D51.0 Abnormal t hyroid hormone 893543040 R94.6 Vitamin D deficiency 347 35954 E55.9 Syphilis 62400762 A53.9 [id number] Krishna Jenkins MD [facility] [address] [place] [address] [place] [address] 10/24/2023 16:39:30 10/30/2023 15:36:01 Mild neurocognitive disorder 523407766 G31.84 [id number] Krishna Jenkins MD [facility] [address] [place] [address] [place] [address] 11/07/2024 12:30:04 11/07/2024 13:32:07 Mild neurocognitive disorder 993151466 G31.84 Vasovagal syncope 812654 005 R55 [id number] Health Concerns Section Related Observation LastModified by Organization Detai ls LastModified Time None Recorded Concern Status LastModified by Organization Details LastModified Time None Recorded Advance Directives Directive None Recorded Payers Insurance Date Sequence Insurance Name Policy Number Policy Post Covered Member ID Post Member ID Guarantor Name 11/16/2024 1 [facility] (MEDICAID HMO) JOSE Shabazz [id number] Wendy Shabazz Notes Date Note Type Note [...] for her mother last week for a [employer] application. She had difficulty so that she needed to obtain guidance from an eldercare social media executive. She thinks an earlier time she would not have needed such guidance. As an example, in 2007 she applied for medical guardianship for her mother was of her mother's of schizophrenia. She went to court, filled out forms and appeared in court all on her own, without an program management professional.She lives with her mother and her 10-year-old [...] is a possibility. Krishna Jenkins MD [address] [place] [address] [place], [phone], [facility] Neurology [facility] 09/05/2023 14:45:37 10/24/2023 text/html Neurology follow-up of [...] for her mother last week for a [employer] application. She had difficulty so that she needed to obtain guidance from an eldercare social media executive. She thinks an earlier time she would not have needed such guidance. As an example, in 2007 she applied for medical guardianship for her mother was of her mother's of schizophrenia. She went to court, filled out forms and appeared in court all on her own, without an program management professional.She lives with her mother and her 10-year-old [...] is a possibility. Krishna Jenkins MD [address] [place] [address] [place], [phone], [facility] 10/24/2023 18:29:29 11/07/2024 text/html Reconsultation for an [...] relating to her stressful situation.We reviewed the [facility] discharge summary together. The discharge summary [...] for her mother last week for a [employer] application. She had difficulty so that she needed to obtain guidance from an eldercare social media executive. She thinks an earlier time she would not have needed such guidance. As an example, in 2007 she applied for medical guardianship for her mother was of her mother's of schizophrenia. She went to court, filled out forms and appeared in court all on her own, without an program management professional.She lives with her mother and her 10-year-old [...] is a possibility. Krishna Jenkins MD [address] [place] [address] [place], [phone], [facility] 11/07/2024 13:19:04 OBGyn Episode No OBEpisode recorded.
--- OUTSIDE RECORDS SUMMARY | 2025-05-07 19:26 | XMS_ITS | Encounter Summary ---
Author Organization [facility] Address [address] [place] [address] Care Team Providers Care Customer Advisor Name Role Phone Carrie Marshall MD Primary Care Provider [phone] Encounter Details Date Type Department Care Team (Latest Contact Info) Description 03/07/2025 Lab Requisition [facility] Main Lab [address] [place] [phone] Wilberto Prado MD [address] [phone] Postmenopausal bleeding Social History Tobacco Use Types [...] or neoplasm identified 03/10/2025 10:36 AM EDT [facility] at 1036 EDT Comment I am unable to determine from this specimen the cause of the endometrial breakdown. 03/10/2025 10:36 AM EDT [facility] HOS[facility]ITAL LAB Clinical Information PMB 03/10/2025 10:36 AM EDT [facility] Gross Description A. Endometrium, biopsy: [...] Final Result [facility] [address] [place] [address], documented in this encounter Visit Diagnoses Diagnosis Postmenopausal bleeding documented in this encounter Care Teams Customer Advisor Relationship Specialty Start Date End Date Carrie Marshall MD [address] [place] [address] Dr Landon [address] [facility] [place] [address] PCP - General Internal Medicine 06/21/12 documented as of this encounter
--- OUTSIDE RECORDS SUMMARY | 2025-05-07 19:26 | XMS_ITS | Clinical Summary ---
Author Organization [facility] Address [address] [place] [address] Phone Care Team Providers Care Colorist Name Role Phone Carrie Marshall MD Primary Care Provider [phone] Encounters Date Type Department Care Team Description 03/07/2025 Lab Requisition [facility] [address] [place] [phone] Wilberto Prado MD Postmenopausal bleeding 03/07/2025 Lab Requisition [facility] [address] [place] [phone] Wilberto Prado MD Postmenopausal bleeding from Last [...] or neoplasm identified 03/10/2025 10:36 AM EDT [facility] at 1036 EDT Comment I am unable to determine from this specimen the cause of the endometrial breakdown. 03/10/2025 10:36 AM EDT [facility] Clinical Information PMB 03/10/2025 10:36 AM EDT [facility] Gross Description A. Endometrium, biopsy: Labeled [...] [facility] [address] [place] [address], * Pap smear (03/07/2025 12:00 AM EDT) Interpretation Negative for intraepithelial lesion or malignancy 03/19/2025 12:27 PM EDT [facility] at 1227 EDT General Categorization Negative 03/19/2025 12:27 PM [facility] Specimen Adequacy Satisfactory for evaluation, endocervical/crawford sformation zone component present 03/19/2025 12:27 PM EDT [facility] Pap Methodology Liquid Based Pap Test 03/19/2025 12:27 PM EDT [facility] Disclaimer The Pap test is a screening test which carries an inherent false negative rate. These test results should be correlated with the patient's clinical findings and history. This Pap test was processed using an automated screening system. Technical cytopathology services provided by [facility], at [address] [place] [address], [place] [address] (CLIA # [id number]/Corinne Noriega MD, Destination Sign Repairer.) 03/19/2025 12:27 PM T [facility] Console Pap Interpretation Reported 03/19/2025 12:27 PM [facility] Brushing/Spatula Cervix uteri structure / Unknown 03/07/2025 03/07/2025 2:17 PM EDT us Wilberto Prado MD LAB CYTOLOGY ORDERABLES Final Result [facility] [address] [place] [address], [place] [phone] from Last 3 Months Insurance [facility] [employer] Care Teams Colorist Relationship Specialty Start Date End Date Carrie Marshall MD [address] [place] [address] Dr Barbi Lester [facility] [place] [address] PCP - General Internal Medicine 06/21/12
== END 2025-05-07 15:41 | disposition home or self-care (01) ==
PROVIDERS: PCP Internal Medicine; Visit Provider Physician Assistant Medical
DX: R05.1 Acute cough (principal)

== ENCOUNTER → 2025-05-07 15:42 | Outpatient (BNV) | payer OTHER, SELFPAY | PROVIDERS: PCP Internal Medicine; Visit Provider Radiology Diagnostic Radiology | DX: J18.8 Other pneumonia, unspecified organism (principal) | CPT/HCPCS: 71046 ==

== ENCOUNTER 2025-05-13 10:38 | Outpatient (AMB) | payer OTHER, SELFPAY ==
[2025-05-13 10:41] VITALS: BP 108/66; PULSE 52; RESP 18; O2SAT 99; BMI 24.8
--- NOTE | 2025-05-13 10:41 | A.OFFPC_ITS ---
Vital Signs 05/13/25 10:41 Height 5 ft 5 in Weight 149 lb BMI 24.8 BP 108/66 Blood Pressure Location Lt brachial Position Sitting Respiration 18 Pulse 52 Pulse Source Pulse Oximeter Temp Source Temporal Artery Scan Pulse Oximetry (%) 99 Oxygen Delivery Method Room Air Intake Visit Reasons: Follow up rescheduled Engagement Quality Consultant Required: No Accompanied by: Self / Same As Patient Allergies animal dander (ANIMAL HAIR) Allergy (Intermediate, Verified 05/13/25 10:42) ASTHMA, HIVES lactose (Lactose) Allergy (Mild, Verified 05/13/25 10:42) DIARRHEA pentosan polysulfate sodium (From Elmiron) Adverse Reaction (Intermediate, Verified 05/13/25 10:42) LFT elevation Medication List - Last Reconciled 05/13/25 by Carrie Marshall MD albuterol sulfate 90 mcg/actuation (Ventolin HFA) 2 puffs PO Q4-6H PRN azelastine 2 sprays intranasal BID benzonatate 100 mg PO bid-tid PRN 7 days blood pressure monitor (Blood Pressure Kit) As directed cholecalciferol (vitamin D3) 50 mcg PO DAILY dextroamphetamine-amphetamine 5 mg ER (Adderall XR) 1 cap PO QAM dicyclomine 20 mg PO BID PRN diphenhydramine HCl (Banophen) 50 mg PO BEDTIME PRN epinephrine 0.3 mg (0.3 mL) IM ONCE PRN escitalopram oxalate 20 mg PO DAILY esketamine (Spravato) inhale 2 sprays into each nostril 2 times per week, with 5-minute rest between use of each device intranasal SURENDRA Dr. [facility] [address] [place] [address] esomeprazole magnesium 40 mg PO DAILY estradiol 0.01%(0.1mg/gram) (Estrace) apply pea-sized amount on fingertip to urethra vaginally daily at bedtime famotidine 20 mg PO .qhs fexofenadine 180 mg PO DAILY PRN 90 days fluticasone propion-salmeterol 250-50 mcg/dose (Advair Diskus) 1 inh inhalation Q12H fluticasone propionate 50 mcg/actuation 2 sprays intranasal DAILY gabapentin 100 mg PO TID hydrocodone-acetaminophen 5-325 mg 1 tab PO TID PRN 30 days ibuprofen 800 mg PO Q12H PRN lisinopril 5 mg PO DAILY loperamide (Anti-Diarrheal (loperamide)) 2 mg PO QID PRN 30 days magnesium oxide 400 mg PO DAILY menthol 5% (Cold and Hot (menthol)) 1 patch topical DAILY PRN mathewrjhj-meqky-mqn 118-10-40.8-36 mg 1 tab PO TID-QID 90 days montelukast 10 mg PO BEDTIME 90 days ondansetron 4 mg PO Q8H PRN oxycodone-acetaminophen 5-325 mg (Percocet) 1 tab PO Q6-8H PRN phenazopyridine (Pyridium) 200 mg PO .q12h PRN polyethylene glycol 3350 (Miralax) 238 grams PO ONCE PRN promethazine 25 mg PO Q12H PRN zolpidem ER 12.5 mg PO BEDTIME PRN Tobacco use date assessed: 05/13/25 Dental Screening Dental Screen Date: 05/13/25 Did you have a dental visit in the last 12 months?: Yes Did you have a dental problem in the last 6 months where you did not have access to dental care?: No Was dental information given to patient?: Patient has dentist HPI HPI Comments History of Present Illness Details History of Present Illness The patient is a 55 year old female presenting for a follow-up visit for multiple chronic conditions and a recent illness. She has a history of generaliz ed anxiety disorder and major depression, and was seen for a crisis evaluation in April for depression with suicidal ideation. She reports currently struggling significantly with depression, which she attributes to life and financial issues, including a related conflict with family members. Her psychiatric medication regimen was recently changed; she is now off Wellbutrin, her Lexapro dose was increased to 20 mg, and she was started on Adderall 5 mg extended release and Spravato nasal spray. She has experienced a recent disruption in her psychiatric care, as two of her providers left their practice. On May 07, the patient was diagnosed with influenza A after presenting with an upper respiratory tract infection and cough. She was not given an antiviral medication at the time, and a scheduled Spravato treatment was deferred due to the illness. Her history is also notable for hypercholesterolemia, with a recent LDL of 151 mg/dL. She has a family history of heart attacks affecting her grandfather and uncle, and her mother has a history of high cholesterol. Other chronic conditions include hypertension, interstitial cystitis for which she follows with urology and had a hydrodistension in April, and degenerative disc disease of the lumbar and cervical spine with radiculopathy. Health maintenance screenings include a colonoscopy in 2018 and a mammogram in June 2024. Health Maintenance The patient is due for a tetanus vaccination. She deferred the vaccine today and will return to the clinic for administration at a later date. Social History - Reports significant financial and life stressors, including a related argument with her father and half-sister, which are contributing to her depression. - Exercise: Attends a dance class once a week. - Diet: Reports trying to eat healthier and increase fiber, but acknowledges a habit of eating pastries and desserts. - She wants to avoid processed foods. Results - Labs: - Blood work from April 23 showed a no rmal CBC, platelet count, electrolytes, creatinine (0.7), and liver function tests. - Serum hCG was negative and ethanol was less than 10. - Protein levels were normal. - Glucose was 105 mg/dL. - LDL cholesterol was 151 mg/dL. - Tests: - Positive for Influenza A on April 21. [facility] Medical History Lumbar stenosis Pneumonia due to COVID-19 virus Hospital discharge follow-up Chronic pain of left ankle IBS (irritable bowel syndrome) Anxiety Depression Asthma Hx of flexible sigmoidoscopy COVID-19 vaccine series completed History of COVID-19 Dental abscess Dental infection Sinusitis, maxillary, chronic Acute sinusitis Diarrhea Cervical radiculopathy ASCUS (atypical squamous cells of undetermined significance) on gynecologic Papanicolaou smear complicating , antepartum Lumbar degenerative disc disease GERD (gastroesophageal reflux disease) Hypercholesterolemia Insomnia Hypertension Interstitial cystitis Degenerative disc disease, cervical Surgical History History of foot surgery Hx of cystoscopy (11/12/24) History of surgery History of neck surgery S/P cervical discectomy H/O nasal septoplasty History of ankle surgery Status post laparoscopic surgery History of wisdom tooth extraction Family History Father PTSD (post-traumatic stress disorder) Mental health disorder Mother No problems noted. Maternal Grandmother Breast cancer Maternal Grandfather Myocardial infarction Maternal Uncle Past heart attack Skin cancer Myocardial infarction Other Substance use disorder Social History Housing: House Are you a primary manager primary care to a significant other at home: No Do you presently have visiting nurse or other home services: No Alcohol intake: current Comment: once a week 2 drinks Patient Tobacco Use Status: Never used Tobacco Years Smoked: quit 2009, CBD, vaping e-Cigarette/Vaping Use: Never Used Second Hand Smoke Exposure: No service: No Current occupational status: unemployed Cognitive needs: No Hearing needs: No Vision needs: Yes Questionnaire Thrive Questionnaire Date Thrive assessed: 05/13/25 I am a: Patient What is your living situation today?: I have a steady place to live Within the past 12 months, did the food you bought not last and you didn't have the money to get more?: I choose not to answer this question Within the past 12 months, did you worry whether your food would run out before you got money to buy more?: I choose not to answer this question Do you have trouble paying for medicines?: No Do you have trouble getting transportation to medical appointments?: No Do you have trouble paying your heating and electricity bill?: No Do you have trouble taking care of your child, family member or friend?: No Do you have trouble with day-to-day activities such as bathing, preparing meals, shopping, managing finances, etc.?: No Are you currently unemployed and looking for a job?: Yes Are you interested in more education?: No Currently or been in a relationship where the following occur: Controlled Emotionally THRIVE Score: 1 SURENDRA-7 AMB Questionnaire SURENDRA-7 Date SURENDRA - 7 assessed: 01/27/25 Source: Developed by Drs. Vineet Centeno, [employer], Brent Biswas and colleagues, with an educational mulugeta from [employer]. Review of Systems Narrative Review of Systems - Constitutional: Denies fever. Reports poor appetite for several days but has maintained fluid intake. - Respiratory: Reports a residual cough after a recent flu diagnosis. - Psychiatric: Reports struggling a great deal with depression, triggered by life and money issues. - Musculoskeletal: Reports muscle aches. Physical exam (Primary Care) Vital Signs: Last Vital Signs Pulse 52 05/13/25 10:41 Resp 18 05/13/25 10:41 BP 108/66 05/13/25 10:41 Pulse Ox 99 05/13/25 10:41 Oxygen Delivery Method Room Air 05/13/25 10:41 BMI result Body Mass Index 24.8 Tobacco/Smoking Status: Tobacco use Status Tobacco use date assessed 05/13/25 05/13/25 10:45 Patient Tobacco Use Status Never used Tobacco 05/13/25 10:45 e-Cigarette/Vaping Use Never Used 05/13/25 10:45 Thrive Assessment: Date of Thrive Assessment Date Thrive assessed 05/13/25 05/13/25 10:45 Currently or been in a relationship where the following occur: Controlled Emotionally Narrative Physical Exam - Lungs: Clear to auscultation bilaterally on posterior exam. Const General: alert; No acute distress Eyes Conjunctivae: conjunctivae normal Resp Auscultation: clear to auscultation bilaterally Cardio Rate: regular rate Rhythm: regular rhythm GI Inspection: Yes normal to inspection Extrem General: Yes normal to inspection and No edema Coding Level of Care Code Est Pt Level 4 (22079) Add On Problem Visit Only Diagnoses Essential hypertension I10 Hypertension type: essential hypertension Hypercholesterolemia E78.00 Gastroesophageal reflux disease without esophagitis K21.9 Esophagitis presence: without esophagitis Interstitial cystitis N30.10 Cervical post-laminectomy syndrome M96.1 Mild intermittent asthma without complication J45.20 Asthma complication type: uncomplicated Asthma persistence: intermittent Asthma severity: mild Major depression F32.9 Influenza A J10.1 Assessment & Plan Assessment & Plan (1) Hypertension: Code(s): I10 - Essential (primary) hypertension Category: Medical Qualifiers: Hypertension type: essential hypertension Qualified Code(s): I10 - Essential (primary) hypertension Plan: Continue with blood pressure medication. Decrease salt intake and exercise patient is on lisinopril 5 mg once a day (2) Hypercholesterolemia: Code(s): E78.00 - Pure hypercholesterolemia, unspecified Category: Medical Plan: Avoid fried foods, chicken skin, eggs, butter margarine, pastries and meat. Be it pork or beef they have a lot of cholesterol LDL goal of less than 130 and triglyceride of less than 150 (3) GERD (gastroesophageal reflux disease): Code(s): K21.9 - Gastro-esophageal reflux disease without esophagitis Category: Medical Qualifiers: Esophagitis presence: without esophagitis Qualified Code(s): K21.9 - Gastro-esophageal reflux disease without esophagitis Plan: Avoid the foods that causes that usually spicy foods, tomato products, juices, coffee, soda and foods that your sensitive to. After eating do not lie down, allow 3-4 hours before in lie down. And keep the head of bed above 30 degrees to avoid the acid from going up. (4) Interstitial cystitis: Code(s): N30.10 - Interstitial cystitis (chronic) without hematuria Category: Medical Plan: Patient follows up with urology and is having hydrodistention (5) Cervical post-laminectomy syndrome: Code(s): M96.1 - Postlaminectomy syndrome, not elsewhere classified Category: Medical Plan: Narcotic pain meds: Is being prescribed with the understanding that these medications are potentially addictive and should be used only when absolutely necessary and must always be secured. Any remaining pills should be safely disposed off appropriately. Patient is advised that narcotics can impaired judgment and one should not drive or operate heavy machinery while taking these medications. Never share these medications with anybody and do not leave them unattended. They will not be replaced under any circumstances. (6) Asthma: Code(s): J45.909 - Unspecified asthma, uncomplicated Category: Medical Qualifiers: Asthma complication type: uncomplicated Asthma persistence: intermittent Asthma severity: mild Qualified Code(s): J45.20 - Mild intermittent asthma, uncomplicated Plan: patient is on Advair and albuterol (7) Major depression: Code(s): F32.9 - Major depressive disorder, single episode, unspecified Category: Medical Plan: Continue with counseling and therapy (8) Influenza A: Comment: 05/07/2025 Code(s): J10.1 - Influenza due to other identified influenza virus with other respiratory manifestations Category: Medical Plan: resolving and will be fine on treatment with spravato on monday Plan Plan Patient was informed and verbally consented to the use of an ambient scribe for clinic note documentation during this visit. 1. Major Depressive Disorder The patient reports significant ongoing depression related to psychosocial stressors. Continue current psychiatric medications, which were recently adjusted to include Lexapro 20 mg, Adderall 5 mg ER, and Spravato, with Wellbutrin discontinued. A referral will be placed for the stay program as requested. Encouraged regular exercise and routine to improve mood. 2. Influenza A The patient has a residual, non-productive cough following a diagnosis of influenza A on May 07. Physical exam today is reassuring, with clear lungs and no evidence of pneumonia. The patient is cleared to proceed with her scheduled Spravato nasal spray treatment. Advised to use an kpar-byh-cwnrrep cough suppressant such as Delsym (dextromethorphan) as needed for the cough, p articularly at night to help with rest. 3. Hypercholesterolemia The patient's LDL cholesterol is elevated at 151 mg/dL, with a strong family history of heart attacks. The patient prefers to defer starting statin medication at this time and will focus on lifestyle modifications. Advised to focus on diet, including increasing fiber, and to maintain a regular exercise routine. Plan to recheck a lipid panel in three months, with reconsideration of statin therapy if her cholesterol remains elevated. 4. Hypertension Continue current dose of lisinopril 5 mg once daily. 5. Interstitial Cystitis Continue follow-up with her urology provider. Discussion Notes I discussed with the patient her ongoing significant distress from depression and how it is being impacted by life stressors and recent changes in her psychiatric care. Following my physical exam of her lungs, which were clear, I reassured her that it is safe to proceed with her Spravato treatment for depression this Monday. For her residual cough from influenza, I explained the difference between cough expectorants and suppressants, and recommended she use an mhtc-sbo-iwgubtf suppressant like Delsym to improve her rest. We reviewed her recent lab work, specifically the elevated LDL cholesterol of 151 mg/dL. I explained that given her strong family history of heart attacks, initiating a statin medication would be beneficial for reducing her cardiovascular risk. The patient expressed a preference to first attempt to lower her cholesterol through diet and exercise, and I agreed to this approach. We will re-evaluate with repeat lab work in three months, and if the cholesterol remains elevated, we will revisit a discussion about starting medication. We also discussed that she is due for a tetanus shot, and she can return to the clinic at her convenience to have it administered by a nurse. Patient Instructions - It is safe for you to proceed with your scheduled Spravato nasal spray treatment on Monday. - For your dry cough, you can use an clsl-acw-tgnprzc medicine like Delsym to help stop the cough, especially at night to help you sleep. - Your LDL or bad cholesterol is high. - Please focus on improving your diet by eating more fiber and fewer pastries, and try to establish a regular exercise routine. - We will recheck your cholesterol with a blood test in 3 months. - If it is still high, we will discuss starting a medication. - A referral has been placed for the stay program as you requested. - You are due for a tetanus shot. - You can come back to the clinic any time to receive this from a nurse when you are feeling better. - Continue your other medications as prescribed. Orders: Orders Lipid Panel 3 Months E78.00 - Pure hypercholesterolemia, unspecified Complete Blood Count Auto Diff 3 Months E78.00 - Pure hypercholesterolemia, unspecified Free T4 (Free Thyroxine) 3 Months E78.00 - Pure hypercholesterolemia, unspecified Hemoglobin A1c 3 Months E78.00 - Pure hypercholesterolemia, unspecified Comprehensive Met. Panel 3 Months E78.00 - Pure hypercholesterolemia, unspecified Thyroid Stimulating Hormone 3 Months E78.00 - Pure hypercholesterolemia, un specified Referrals Psychiatry Referral F32.9 - Major depressive disorder, single episode, unspecified
--- OUTSIDE RECORDS SUMMARY | 2025-05-13 11:56 | XMS_ITS | Encounter Summary ---
Author Organization [facility] Address [address] [place] [address] [address] [place] [address] Care Team Providers Care Creative Services Producer Name Role Phone Unavailable Primary Care Provider Unavailabl e Reason for Visit * Reason Onset Date Comments Dr. Marques Medication clarification 02/04/2025 Encounter Details Date Type Department Care Team ([facility] st Contact Info) Description 02/04/2025 Telephone [facility] ADULT DENTAL [address] [place] [address] Trent Marques DDS [address] [place] [address] Dr. Marques Medication clarification Social History Tobacco [...] both scripts. Please reach out to pharmacy [phone]. documented in this encounter Plan of Treatment Not on file documented as of this encounter Visit Diagnoses Not on filedocumented in this encounter
--- OUTSIDE RECORDS SUMMARY | 2025-05-13 11:56 | XMS_ITS | Clinical Summary ---
Author Organization [address] [facility] Address [address] [place] [address] Phone Care Team Providers Care Salvage Engineer Name Role Phone Carrie Marshall MD Primary Care Provider [phone] Encounters Date Type Department Care Team Description 03/07/2025 Lab Requisition [facility] [address] [place] [phone] Wilberto Prado MD Postmenopausal bleeding 03/07/2025 Lab Requisition [facility] [address] [place] [phone] Wilberto Prado MD Postmenopausal bleeding from Last [...] or neoplasm identified 03/10/2025 10:36 AM EDT [facility] at 1036 EDT Comment I am unable to determine from this specimen the cause of the endometrial breakdown. 03/10/2025 10:36 AM EDT [facility] Clinical Information PMB 03/10/2025 10:36 AM EDT [facility] Gross Description A. Endometrium, biopsy: [...] [facility] [address] [place] [address], * Pap smear (03/07/2025 12:00 AM EDT) Interpretation Negative for intraepithelial lesion or malignancy 03/19/2025 12:27 PM EDT [facility] at 1227 EDT General Categorization Negative 03/19/2025 12:[address] [facility] Specimen Adequacy Satisfactory for evaluation, [...] screening system. Technical cytopathology services provided by [facility], at [address] [place] [address], [place] [address] (CLIA # [id number]/Corinne Noriega MD, Doctor Of Chiropractic.) 03/19/2025 12:27 PM T [facility] Console Pap Interpretation Reported 03/19/2025 12:[address] [facility] Brushing/Spatula Cervix uteri structure / Unknown 03/07/2025 03/07/2025 2:17 PM EDT us Wilberto Prado MD LAB CYTOLOGY ORDERABLES Final Result [facility] ([email or web address] [address] [place] [address], [place] [phone] from Last 3 Months Insurance [facility] [email or web address] PLAN Care Teams Salvage Engineer Relationship Specialty Start Date End Date Carrie Marshall MD [address] [place] [address] Dr Barbi Lester [facility] [place] [address] PCP - General Internal Medicine 06/21/12
--- OUTSIDE RECORDS SUMMARY | 2025-05-13 11:56 | XMS_ITS | Encounter Summary ---
Author Organization [facility] Address [address] [place] [address] [address] [place] [address] Care Team Providers Care Precision Instrument Maker And Repairer Name Role Phone Unavailable Primary Care Provider Unavailabl e Encounter Details Date Type Department Care Team (Latest Contact Info) Description 09/26/2018 Abstract [facility] CONVERSIONS Dental, Provider, DDS Social [...]
--- OUTSIDE RECORDS SUMMARY | 2025-05-13 11:56 | XMS_ITS | Encounter Summary ---
Author Organization [facility] Address [address] [place] [address] Care Team Providers Care Associate Director Of Nursing Name Role Phone Carrie Marshall MD Primary Care Provider [phone] Encounter Details Date Type Department Care Team (Latest Contact Info) Description 03/07/2025 Lab Requisition [facility] [address] [place] [phone] Wilberto Prado MD [address] [phone] Postmenopausal bleeding Social History Tobacco Use Types [...] or neoplasm identified 03/10/2025 10:36 AM EDT [facility] at 1036 EDT Comment I am unable to determine from this specimen the cause of the endometrial breakdown. 03/10/2025 10:36 AM EDT [facility] LAB Clinical Information PMB 03/10/2025 10:36 AM EDT [facility] Gross Description A. Endometrium, biopsy: Labeled with the patient's name and information. Received in formalin is a 1.1 cm aggregate of irregular dark red tissue fragments which is submitted in toto in a mesh bag in one cassette, multiple pieces, x 2. ELIDA 03/10/2025 10:36 AM EDT [facility] Disclaimer Unless otherwise specified, all tissue is 10% NB formalin fixed and paraffin embedded. 03/10/2025 10:36 AM EDT [facility] Tissue Endometrial structure / Unknown 03/07/2025 03/07/2025 12:56 PM EDT us Wilberto Prado MD LAB PATHOLOGY ORDERABLES Final Result [facility] [address] [place] [address], documented in this encounter Visit Diagnoses Diagnosis Postmenopausal bleeding documented in this encounter Care Teams Associate Director Of Nursing Relationship Specialty Start Date End Date Carrie Marshall MD [address] [place] [address] Dr Landon [address] [facility] [place] [address] PCP - General Internal Medicine 06/21/12 documented as of this encounter
--- OUTSIDE RECORDS SUMMARY | 2025-05-13 11:56 | XMS_ITS | Encounter Summary ---
Author Organization [facility] Address [address] [place] [address], [place] [address] Care Team Providers Care Spoilage Worker Name Role Phone Unavailable Primary Care Provider Unavailabl e Encounter Details Date Type Department Care Team (Latest Contact Info) Description 05/05/2021 Abstract [facility] CONVERSIONS Dental, Provider, DDS Social [...]
--- OUTSIDE RECORDS SUMMARY | 2025-05-13 11:56 | XMS_ITS | Encounter Summary ---
Author Organization [facility] Address [address] [facility] [address] [place] [address] Phone Care Team Providers Care Veterinary Technician Assistant Name Role Phone Carrie Marshall MD Primary Care Provider [phone] Reason for Referral * Physical Therapy (Routine) - Closed Specialty Diagnoses / Procedures Referred By Aixa rogers Referred To Contact Physical Therapy Diagnoses Encounter for rehabilitation Interstitisal Cystitis Procedures Evaluate & Treat Maikol Harding MD Phone: tel: [facility] [address] [place] [address] Phone: tel: Referral ID Status Reason Start Date Expiration Date Visits Re quested Visits Authorized [id number] Closed 01/08/2020 05/21/2020 13 13 Encounter Details Date Type Department Care Team (Latest Contact Info) Description 12/31/2019 Transcribe Orders [facility] [address] [place] [address] Maikol Harding MD [address] [place] [address] Encounter for rehabilitation (Primary Dx) Social History [...] Date/Time Associated Diagnosis Comments AMB REFERRAL TO [facility] PHYSICAL THERAPY Routine 01/23/2020 3:22 PM EDT Encounter for rehabilitation documented in this encounter Results * Ambulatory referral to [facility] Physical Therapy (01/23/2020 3:22 PM EDT) Maikol Harding MD AMB [facility] REFERRALS Final Result documented in this encounter Visit Diagnoses Diagnosis Encounter for rehabilitation- Primary documented in this encounter Care Teams Veterinary Technician Assistant Relationship Specialty Start Date End Date Rolando, Carrie Martinez MD [address] [place] [address] [place] [phone] PCP - General Internal Medicine 12/25/19 documented as of this encounter Additional Source Comments The information contained in this document represents components of the legal health record. It is not the complete legal health record.[facility]
--- OUTSIDE RECORDS SUMMARY | 2025-05-13 11:56 | XMS_ITS | Encounter Summary ---
Author Organization [facility] Address [address] [place] [address] Care Team Providers Care Banana Room Cutter Name Role Phone Carrie Marshall MD Primary Care Provider [phone] Encounter Details Date Type Department Care Team (Latest Contact Info) Description 03/07/2025 Lab Requisition [facility] - Main Lab [address] [place] [phone] Wilberto Prado MD [address] [phone] Postmenopausal bleeding Social History Tobacco Use Types [...] lesion or malignancy 03/19/2025 12:27 PM EDT [facility] at 1227 EDT General Categorization Negative 03/19/2025 12:27 PM EDT [facility] Specimen Adequacy Satisfactory for evaluation, endocervical/crawford sformation zone component present 03/19/2025 12:27 PM EDT [facility] Pap Methodology Liquid Based Pap Test 03/19/2025 12:27 PM EDT [facility] Disclaimer The Pap test is a screening test which carries an inherent false negative rate. These test results should be correlated with the patient's clinical findings and history. This Pap test was processed using an automated screening system. Technical cytopathology services provided by [facility], at [address] [place] [address] (CLIA # [id number]/Corinne Noriega MD, It Project Coordinator.) 03/19/2025 12:27 PM EDT [facility] Console Pap Interpretation Reported 03/19/2025 12:27 PM EDT [facility] Brushing/Spatula Cervix uteri structure / Unknown 03/07/2025 03/07/2025 2:17 PM EDT us Wilberto Prado MD LAB CYTOLOGY ORDERABLES Final Result [facility] [address] [place] [address], documented in this encounter Visit Diagnoses Diagnosis Postmenopausal bleeding documented in this encounter Care Teams Banana Room Cutter Relationship Specialty Start Date End Date Carrie Marshall MD [address] [place] [address] [address] [facility] [place] [address] PCP - General Internal Medicine 06/21/12 documented as of this encounter
--- OUTSIDE RECORDS SUMMARY | 2025-05-13 11:57 | XMS_ITS | Clinical Summary ---
Author Organization [facility] Address [address] [facility] 7 [place] [address] Care Team Providers Care Shoe Lacer Name Role Phone Unavailable Primary Care Provider [...] MCG/ACT aerosol powder 3 Active HYDROcodone-fabrice taminophen (Guild) 5-325 MG tablet TAKE ONE TABLET BY [...] 05/11/2023 Anxiety state 01/14/2006 Depressive disorder 01/14/2006 Social History Tobacco Use Types Packs/Day Years [...] Associated Diagnosis Comments PROPHYLAXIS - ADULT Routine 10/10/2024 3 :00 PM EDT Dental calculus Dental plaque INTRAORAL - COMPLETE SERIES OF RADIOGRAPHIC IMAGES Routine 10/10/2024 3:00 PM EDT PERIODIC ORAL EVALUATION - ESTABLISHED PATIENT Routine 10/10/2024 3:00 PM EDT from Last 3 Months or Most Recently Relevant to Health Maintenance Insurance [facility] MEDICAID STAND ADULT
--- OUTSIDE RECORDS SUMMARY | 2025-05-13 11:57 | XMS_ITS | Clinical Summary ---
Author Organization [facility] Address [address] [place] [address] Care Team Providers Care Orchestra Leader Name Role Phone Carrie Marshall Primary Care Provider [phone] Allergies No known active allergies Social History [...] Panel 07/12/2025 07/12/2024 Procedures * Due to [place] [employer] law, this organization might not be sharing negative HIV tests. Procedure Name Priority Date/Time Associated Diagnosis Comments BASIC METABOLIC PANEL STAT 07/12/2024 1:28 PM EST from Last 3 Months or Most Recently Relevant to Health Maintenance Results * Due to [place] [employer] law, this organization might not be sharing [...] Camacho MD LAB BLOOD ORDERABLES [facility] Organization Address City/State/ZIP Co de Phone Number [facility] [address] [place], [place] [phone], from Last 3 Months or Most Recently Relevant to Health Maintenance Insurance [employer] Care Teams Orchestra Leader Relationship Specialty Start Date End Date Carrie Marshall [address] [place] [address] [place] [address] PCP - General Internal Medicine 07/12/24
--- OUTSIDE RECORDS SUMMARY | 2025-05-13 11:57 | XMS_ITS | Clinical Summary ---
Author Organization [facility] Address [address] [place] [address] Phone Care Team Providers Care Sexer Name Role Phone Carrie Marshall MD Primary Care Provider [phone] Allergies Active Allergy Reactions Criticality Noted Date Comments Lactose GI Upset 05/05/2025 Medications No known medications Active Problems Problem Noted Date Diagnosed Date Depression with suicidal ideation 05/05/2025 Encounters Date Type Department Care Team Description 05/05/2025 3:40 PM EST - 05/06/2025 11:16 AM EST Hospital Encounter [facility] [address] [place] [address] Torey Montano MD Fordjour, Natalie, MD Andrade, [...] Ethanol, Blood (05/05/2025 4:27 PM EST) Pathologist [facility] Ethanol <10 Negative; <11 mg/dL 05/05/2025 5:10 PM EST [facility] Blood (Blood) Venipuncture / Unknown 05/05/2025 4:27 PM EST 05/05/2025 4:31 PM EST us Ce Sheth MD LAB BLOOD BKR ORDERABLES Fi nal Result [facility] [address] [place] [address] * Human Chorionic Gonadotropin (HCG), Qualitative, Blood (05/05/2025 4:27 PM EST) [facility] hCG Qualitative Negative Negative 5:42 PM [facility] Blood (Blood) Venipuncture / Unknown 05/05/2025 4:27 PM EST 05/05/2025 4:31 PM EST us Ce Sheth MD LAB BLOOD BKR ORDERABLES Fi nal Result [facility] [address] [place] [address] * CBC and Differential (05/05/2025 4:27 PM EST) WBC 5.67 4.00 - 11.00 K/uL 05/05/2025 4:34 PM [facility] RBC 4.60 4.00 - 5.20 M/uL 05/05/2025 4:34 PM [facility] Hemoglobin 13.1 12.0 - 16.0 g/dL 05/05/2025 4:34 PM [facility] Hematocrit 39.8 36.0 - 46.0 % 05/05/2025 4:34 PM [facility] MCV 86.5 80.0 - 100.0 fL 05/05/2025 4:34 PM [facility] MCH 28.5 27.0 - 31.0 pg 05/05/2025 4:34 PM [facility] MCHC 32.9 32.0 - 36.0 g/dL 05/05/2025 4:34 PM [facility] MPV 10.4 8.4 - 12.0 fL 05/05/2025 4:34 PM [facility] RDW-CV 12.6 11.5 - 14.5 % 05/05/2025 4:34 PM [facility] PLT 250 150 - 450 K/uL 05/05/2025 4:34 PM [facility] Neutrophils 48.8 % 05/05/2025 4:34 PM [facility] Lymphocytes 42.3 % 05/05/2025 4:34 PM [facility] Monocytes 7.1 % 05/05/2025 4:34 PM [facility] Eosinophils 1.1 % 05/05/2025 4:34 PM [facility] Basophils 0.5 % 05/05/2025 4:34 PM [facility] Imm Grans 0.2 % 05/05/2025 4:34 PM [facility] NRBC 0.0 <=0.0 /100 WBCs 05/05/2025 4:34 PM [facility] Absolute Neutrophils 2.77 1.92 - 7.60 K/uL 05/05/2025 4:34 PM [facility] Absolute Lymphocytes 2.40 0.72 - 4.10 K/uL 05/05/2025 4:34 PM [facility] Absolute Monocytes 0.40 0.16 - 1.10 K/uL 05/05/2025 4:34 PM [facility] Absolute Eosinophils 0.06 0.00 - 0.50 K/uL 05/05/2025 4:34 PM [facility] Absolute Basophils 0.03 0.00 - 0.15 K/uL 05/05/2025 4:34 PM [facility] Absolute Imm Grans 0.01 0.00 - 0.09 K/uL 05/05/2025 4:34 PM [facility] Absolute NRBC 0.00 <=0.00 K cells/uL 05/05/2025 4:34 PM [facility] Absolute Neutrophils 2.77 1.92 - 7.60 K/uL 05/05/2025 4:34 PM [facility] Comment:Automated cell count . Manual ANC may differ if performed. Diff Type Auto 05/05/2025 4:34 PM [facility] Blood (Blood) Venipuncture / Unknown 05/05/2025 4:27 PM EST 05/05/2025 4:31 PM EST us Ce Sheth MD LAB BLOOD BKR ORDERABLES Fi nal Result [facility] [address] [place] [address] * Hepatic Panel (LFTs) (05/05/2025 4:27 PM EST) AST 19 <33 U/L 05/05/2025 5:10 PM [facility] ALT 17 <34 U/L 05/05/2025 5:10 PM [facility] Alkaline Phosphatase 67 40 - 130 U/L 05/05/2025 5:10 PM [facility] Bilirubin, Total 0.4 0.0 - 1.2 mg/dL 05/05/2025 5:10 PM [facility] Bilirubin, Direct 0.1 0.0 - 0.3 mg/dL 05/05/2025 5:10 PM [facility] Total Protein 7.3 6.4 - 8.3 g/dL 05/05/2025 5:10 PM [facility] Albumin 4.8 3.5 - 5.2 g/dL 05/05/2025 5:10 PM [facility] Globulin 2.5 1.9 - 4.1 g/dL 05/05/2025 5:10 PM [facility] Blood (Blood) Venipuncture / Unknown 05/05/2025 4:27 PM EST 05/05/2025 4:31 PM EST us Ce Sheth MD LAB BLOOD BKR ORDERABLES Fi nal Result [facility] [address] [place] [address] * (ABNORMAL) Basic Metabolic Panel (BMP) (05/05/2025 4:27 PM EST) Sodium 143 136 - 145 mmol/L 05/05/2025 5:10 PM [facility] Potassium 3.9 3.4 - 5.1 mmol/L 05/05/2025 5:10 PM [facility] Chloride 107 98 - 107 mmol/L 05/05/2025 5:10 PM [facility] CO2 26 20 - 31 mmol/L 05/05/2025 5:10 PM [facility] BUN 10 6 - 23 mg/dL 05/05/2025 5:10 PM [facility] Creatinine 0.70 0.50 - 1.00 mg/dL 05/05/2025 5:10 PM [facility] Glucose 105(H) 70 - 99 mg/dL 05/05/2025 5:10 PM EST [facility] Calcium 9.9 8.5 - 10.5 mg/dL 05/05/2025 5:10 PM [facility] eGFR 102 >59 mL/min/1.7 3m2 05/05/2025 5:10 PM [facility] Comment:Estimated glomerular filtration rate calculated using the CKD-EPI refit equation. Anion Gap 10 3 - 17 mmol/L 05/05/2025 5:10 PM [facility] Blood (Blood) Venipuncture / Unknown 05/05/2025 4:27 PM EST 05/05/2025 4:31 PM EST Ce Sheth MD LAB BLOOD BKR ORDERABLES Fi nal Result [facility] [address] [place] [address] from Last 3 Months Insurance ACO ACO ACO ACO ACO ACO ACO Member Subscriber Plan / Payer (Ef fective 2019-Present) Name:Wendy Shabazz Relation to Subscriber:Self Name:Wendy Shabazz Payer ID:[id number] Group ID:[id number] Type:Medicaid Address: [place] [id number] ACO [facility] A[facility] Care Teams Sexer Relationship Specialty Start Date End Date Carrie Marshall MD [address] [place] [address] Drive [address] [place] [phone] PCP - General Internal Medicine 12/25/19 Additional Source Comments The information contained in this document represents components of the legal health record. It is not the complete legal health record.[facility]
== END 2025-05-13 11:25 | disposition home or self-care (01) ==
PROVIDERS: PCP Internal Medicine; Visit Provider Internal Medicine
DX: I10 Essential (primary) hypertension (principal); E78.00 Pure hypercholesterolemia, unspecified; K21.9 Gastro-esophageal reflux disease without esophagitis; N30.10 Interstitial cystitis (chronic) without hematuria; M96.1 Postlaminectomy syndrome, not elsewhere classified; J45.20 Mild intermittent asthma, uncomplicated; F32.9 Major depressive disorder, single episode, unspecified; J10.1 Influenza due to other identified influenza virus with other respiratory manifestations

== ENCOUNTER → 2025-05-13 10:38 | Outpatient (BNVA) | payer OTHER, SELFPAY | PROVIDERS: PCP Internal Medicine; Visit Provider Internal Medicine | DX: I10 Essential (primary) hypertension (principal); E78.00 Pure hypercholesterolemia, unspecified; K21.9 Gastro-esophageal reflux disease without esophagitis; N30.10 Interstitial cystitis (chronic) without hematuria; M96.1 Postlaminectomy syndrome, not elsewhere classified; J45.20 Mild intermittent asthma, uncomplicated; F32.9 Major depressive disorder, single episode, unspecified; J10.1 Influenza due to other identified influenza virus with other respiratory manifestations | CPT/HCPCS: 99212 ==

== ENCOUNTER 2025-05-20 10:05 | Outpatient (AMB) | payer OTHER, SELFPAY ==
--- NOTE | 2025-05-20 10:24 | AM.OFFVISNUR ---
Intake Visit Reasons: Tetanus Shot Allergies animal dander (ANIMAL HAIR) Allergy (Intermediate, Verified 05/13/25 10:42) ASTHMA, HIVES lactose (Lactose) Allergy (Mild, Verified 05/13/25 10:42) DIARRHEA pentosan polysulfate sodium (From [place]) Adverse Reaction (Intermediate, Verified 05/13/25 10:42) LFT elevation Immunizations Boostrix Tdap 2.5 Lf unit-8 mcg-5 Lf/0.5 mL intramuscular syringe Performing Provider: Carrie Marshall MD [facility] Administered by: Indu Kumar RN on 05/20/25 10:24 Dose Route Admin Location Dispensed Lot Number Expiration Date [facility] Twister Tender Paper 0.5 mL IM Right Deltoid 0.5 mL [id number] 11/01/27 [id number] [employer] Total Dispensed Waste 0.5 mL 0 % VIS Given Date VIS Provided VIS Publication Date 05/20/25 Single Vaccine 20 Eligibility Eligibility Date Funding Source Not [facility] Eligible 05/20/25 Private Assessment & Plan Assessment & Plan Orders: Orders TDaP Immunization Today Z23 - Encounter for immunization Coding
--- OUTSIDE RECORDS SUMMARY | 2025-05-20 13:19 | XMS_ITS | Encounter Summary ---
Author Organization [facility] Address [address] [place] [address] Phone Care Team Providers Care Automotive Product Specialist Name Role Phone Carrie Marshall MD Primary Care Provider [phone] Reason for Referral * Physical Therapy (Routine) - Closed Specialty Diagnoses / Procedures Referred By Aixa rogers Referred To Contact Physical Therapy Diagnoses Encounter for rehabilitation Interstitisal Cystitis Procedures Evaluate & Treat Maikol Harding MD Phone: tel: [facility] [address] [place] [address] Phone: tel: Referral ID Status Reason Start Date Expiration Date Visits Re quested Visits Authorized [id number] Closed 01/08/2020 05/21/2020 13 13 Encounter Details Date Type Department Care Team (Latest Contact Info) Description 12/31/2019 Transcribe Orders [facility] Physical Therapy Clinic [address] [place] [address] Maikol Harding MD [address] [place] [address] Encounter for rehabilitation (Primary Dx) Social History [...] Date/Time Associated Diagnosis Comments AMB REFERRAL TO [facility] PHYSICAL THERAPY Routine 01/23/2020 3:22 PM EDT Encounter for rehabilitation documented in this encounter Results * Ambulatory referral to [facility] Physical Therapy (01/23/2020 3:22 PM EDT) Maikol Harding MD AMB [facility] REFERRALS Final Result documented in this encounter Visit Diagnoses Diagnosis Encounter for rehabilitation- Primary documented in this encounter Care Teams Automotive Product Specialist Relationship Specialty Start Date End Date Rolando, Carrie Martinez MD [address] [place] [address] [place] [phone] PCP - General Internal Medicine 12/25/19 documented as of this encounter Additional Source Comments The information contained in this document represents components of the legal health record. It is not the complete legal health record.[facility]
--- OUTSIDE RECORDS SUMMARY | 2025-05-20 13:19 | XMS_ITS | Encounter Summary ---
Author Organization [employer] [facility] Address [address] [place] [address] 7 [place] [address] Care Team Providers Care Cementer Helper Name Role Phone Unavailable Primary Care Provider Unavailabl e Encounter Details Date Type Department Care Team (Latest Contact Info) Description 09/26/2018 Abstract [facility] Dental, Provider, DDS Social History [...]
--- OUTSIDE RECORDS SUMMARY | 2025-05-20 13:19 | XMS_ITS | Encounter Summary ---
Author Organization [employer] [facility] Address [address] [place] [address] [place], [place] [address] Care Team Providers Care Electrical Installation Inspector Name Role Phone Unavailable Primary Care Provider Unavailabl e Encounter Details Date Type Department Care Team (Latest Contact Info) Description 05/05/2021 Abstract [facility] Dental, Provider, DDS Social History [...]
--- OUTSIDE RECORDS SUMMARY | 2025-05-20 13:20 | XMS_ITS | Clinical Summary ---
Author Organization [facility] Address [address] [place] [address] Care Team Providers Care Emblem Cutter Name Role Phone Carrie Marshall Primary Care Provider [phone] Allergies No known active allergies Social History [...] Panel 07/12/2025 07/12/2024 Procedures * Due to [place] [employer] law, this organization might not be sharing negative HIV tests. Procedure Name Priority Date/Time Associated Diagnosis Comments BASIC METABOLIC PANEL STAT 07/12/2024 1:28 PM EST from Last 3 Months or Most Recently Relevant to Health Maintenance Results * Due to [place] [employer] law, this organization might not be sharing [...] Camacho MD LAB BLOOD ORDERABLES Final [facility] Organization Address City/State/ZIP Co de Phone Number [facility] [employer] [facility] [address] [place], [place] [phone], from Last 3 Months or Most Recently Relevant to Health Maintenance Insurance [employer] Care Teams Emblem Cutter Relationship Specialty Start Date End Date Carrie Marshall [address] [place] [address] [place] [address] PCP - General Internal Medicine 07/12/24
--- OUTSIDE RECORDS SUMMARY | 2025-05-20 13:20 | XMS_ITS | Encounter Summary ---
Author Organization [facility] Address [address] [place] [address] Care Team Providers Care Cyber Security Administrator Name Role Phone Carrie Marshall MD Primary Care Provider [phone] Encounter Details Date Type Department Care Team (Latest Contact Info) Description 03/07/2025 Lab Requisition [facility] - Main Lab [address] [place] [phone] Wilberto Prado MD [address] [phone] Postmenopausal bleeding Social History Tobacco Use Types [...] or neoplasm identified 03/10/2025 10:36 AM EDT [facility] at 1036 EDT Comment I am unable to determine from this specimen the cause of the endometrial breakdown. 03/10/2025 10:36 AM EDT [facility] HOSPITAL LAB Clinical Information PMB 03/10/2025 10:36 AM EDT [facility] Gross Description A. Endometrium, [...] Result [facility] [address] [place] [address], documented in this encounter Visit Diagnoses Diagnosis Postmenopausal bleeding documented in this encounter Care Teams Cyber Security Administrator Relationship Specialty Start Date End Date Carrie Marshall MD [address] [place] [address] [address] [facility] [place] [address] PCP - General Internal Medicine 06/21/12 documented as of this encounter
--- OUTSIDE RECORDS SUMMARY | 2025-05-20 13:20 | XMS_ITS | Encounter Summary ---
Author Organization [facility] Address [address] [place] [address] Care Team Providers Care County Program Technician Name Role Phone Carrie Marshall MD Primary Care Provider [phone] Encounter Details Date Type Department Care Team (Latest Contact Info) Description 03/07/2025 Lab Requisition [facility] - Main Lab [address] [place] [phone] Wilberto Prado MD [address] [phone] Postmenopausal bleeding Social History Tobacco Use Types [...] lesion or malignancy 03/19/2025 12:27 PM EDT [facility] at 1227 EDT General Categorization Negative 03/19/2025 12:27 PM EDT [facility] Specimen Adequacy Satisfactory for [...] screening system. Technical cytopathology services provided by [facility], at [address] [place] [address] (CLIA # [id number]/Corinne Noriega MD, History Department Chair.) 03/19/2025 12:27 PM EDT [facility] Console Pap Interpretation Reported 03/19/2025 12:27 PM EDT [facility] Brushing/Spatula Cervix uteri structure / Unknown 03/07/2025 03/07/2025 2:17 PM EDT us Wilberto Prado MD LAB CYTOLOGY ORDERABLES Final Result [facility] [address] [place] [address], documented in this encounter Visit Diagnoses Diagnosis Postmenopausal bleeding documented in this encounter Care Teams County Program Technician Relationship Specialty Start Date End Date Carrie Marshall MD [address] [place] [address] Dr [address] [facility] [place] [address] PCP - General Internal Medicine 06/21/12 documented as of this encounter
--- OUTSIDE RECORDS SUMMARY | 2025-05-20 13:20 | XMS_ITS | Clinical Summary ---
Author Organization [facility] Address [address] [place] [address] Phone Care Team Providers Care Gear Straightener Name Role Phone Carrie Marshall MD Primary Care Provider [phone] Allergies Active Allergy Reactions Criticality Noted Date Comments Lactose GI Upset 05/05/2025 Medications No known medications Active Problems Problem Noted Date Diagnosed Date Depression with suicidal ideation 05/05/2025 Encounters Date Type Department Care Team Description 05/05/2025 3:40 PM EST - 05/06/2025 11:16 AM EST Hospital Encounter [facility] [address] [place] [address] Torey Montano MD Fordjour, Natalie, MD Andrade, [...] Ethanol, Blood (05/05/2025 4:27 PM EST) Pathologist [facility] Ethanol <10 Negative; <11 mg/dL 05/05/2025 5:10 PM EST [facility] Blood (Blood) Venipuncture / Unknown 05/05/2025 4:27 PM EST 05/05/2025 4:31 PM EST us Ce Sheth MD LAB BLOOD BKR ORDERABLES Fi nal Result [facility] [address] [place] [address] * Human Chorionic Gonadotropin (HCG), Qualitative, Blood (05/05/2025 4:27 PM EST) [facility] hCG Qualitative Negative Negative 5:42 PM [facility] Blood (Blood) Venipuncture / Unknown 05/05/2025 4:27 PM EST 05/05/2025 4:31 PM EST us Ce Sheth MD LAB BLOOD BKR ORDERABLES Fi nal Result [facility] [address] [place] [address] * CBC and Differential (05/05/2025 4:27 PM EST) WBC 5.67 4.00 - 11.00 K/uL 05/05/2025 4:34 PM [facility] RBC 4.60 4.00 - 5.20 M/uL 05/05/2025 4:34 PM [facility] Hemoglobin 13.1 12.0 - 16.0 g/dL 05/05/2025 4:34 PM [facility] Hematocrit 39.8 36.0 - 46.0 % 05/05/2025 4:34 PM [facility] MCV 86.5 80.0 - 100.0 fL 05/05/2025 4:34 PM [facility] MCH 28.5 27.0 - 31.0 pg 05/05/2025 4:34 PM [facility] MCHC 32.9 32.0 - 36.0 g/dL 05/05/2025 4:34 PM [facility] MPV 10.4 8.4 - 12.0 fL 05/05/2025 4:34 PM [facility] RDW-CV 12.6 11.5 - 14.5 % 05/05/2025 4:34 PM [facility] PLT 250 150 - 450 K/uL 05/05/2025 4:34 PM [facility] Neutrophils 48.8 % 05/05/2025 4:34 PM [facility] Lymphocytes 42.3 % 05/05/2025 4:34 PM [facility] Monocytes 7.1 % 05/05/2025 4:34 PM [facility] Eosinophils 1.1 % 05/05/2025 4:34 PM [facility] Basophils 0.5 % 05/05/2025 4:34 PM [facility] Imm Grans 0.2 % 05/05/2025 4:34 PM [facility] NRBC 0.0 <=0.0 /100 WBCs 05/05/2025 4:34 PM [facility] Absolute Neutrophils 2.77 1.92 - 7.60 K/uL 05/05/2025 4:34 PM [facility] Absolute Lymphocytes 2.40 0.72 - 4.10 K/uL 05/05/2025 4:34 PM [facility] Absolute Monocytes 0.40 0.16 - 1.10 K/uL 05/05/2025 4:34 PM [facility] Absolute Eosinophils 0.06 0.00 - 0.50 K/uL 05/05/2025 4:34 PM [facility] Absolute Basophils 0.03 0.00 - 0.15 K/uL 05/05/2025 4:34 PM [facility] Absolute Imm Grans 0.01 0.00 - 0.09 K/uL 05/05/2025 4:34 PM [facility] Absolute NRBC 0.00 <=0.00 K cells/uL 05/05/2025 4:34 PM [facility] Absolute Neutrophils 2.77 1.92 - 7.60 K/uL 05/05/2025 4:34 PM [facility] Comment:Automated cell count . Manual ANC may differ if performed. Diff Type Auto 05/05/2025 4:34 PM [facility] Blood (Blood) Venipuncture / Unknown 05/05/2025 4:27 PM EST 05/05/2025 4:31 PM EST us Ce Sheth MD LAB BLOOD BKR ORDERABLES Fi nal Result [facility] [address] [place] [address] * Hepatic Panel (LFTs) (05/05/2025 4:27 PM EST) AST 19 <33 U/L 05/05/2025 5:10 PM [facility] ALT 17 <34 U/L 05/05/2025 5:10 PM [facility] Alkaline Phosphatase 67 40 - 130 U/L 05/05/2025 5:10 PM [facility] Bilirubin, Total 0.4 0.0 - 1.2 mg/dL 05/05/2025 5:10 PM [facility] Bilirubin, Direct 0.1 0.0 - 0.3 mg/dL 05/05/2025 5:10 PM [facility] Total Protein 7.3 6.4 - 8.3 g/dL 05/05/2025 5:10 PM [facility] Albumin 4.8 3.5 - 5.2 g/dL 05/05/2025 5:10 PM [facility] Globulin 2.5 1.9 - 4.1 g/dL 05/05/2025 5:10 PM [facility] Blood (Blood) Venipuncture / Unknown 05/05/2025 4:27 PM EST 05/05/2025 4:31 PM EST us Ce Sheth MD LAB BLOOD BKR ORDERABLES Fi nal Result [facility] [address] [place] [address] * (ABNORMAL) Basic Metabolic Panel (BMP) (05/05/2025 4:27 PM EST) Sodium 143 136 - 145 mmol/L 05/05/2025 5:10 PM [facility] Potassium 3.9 3.4 - 5.1 mmol/L 05/05/2025 5:10 PM [facility] Chloride 107 98 - 107 mmol/L 05/05/2025 5:10 PM [facility] CO2 26 20 - 31 mmol/L 05/05/2025 5:10 PM [facility] BUN 10 6 - 23 mg/dL 05/05/2025 5:10 PM [facility] Creatinine 0.70 0.50 - 1.00 mg/dL 05/05/2025 5:10 PM [facility] Glucose 105(H) 70 - 99 mg/dL 05/05/2025 5:10 PM EST [facility] Calcium 9.9 8.5 - 10.5 mg/dL 05/05/2025 5:10 PM [facility] eGFR 102 >59 mL/min/1.7 3m2 05/05/2025 5:10 PM [facility] Comment:Estimated glomerular filtration rate calculated using the CKD-EPI refit equation. Anion Gap 10 3 - 17 mmol/L 05/05/2025 5:10 PM [facility] Blood (Blood) Venipuncture / Unknown 05/05/2025 4:27 PM EST 05/05/2025 4:31 PM EST Ce Sheth MD LAB BLOOD BKR ORDERABLES Fi nal Result [facility] [address] [place] [address] from Last 3 Months Insurance ACO ACO ACO ACO ACO ACO ACO Member Subscriber Plan / Payer (Ef fective 2019-Present) Name:Wendy Shabazz Relation to Subscriber:Self Name:Wendy Shabazz Payer ID:[id number] Group ID:[id number] Type:Medicaid Address: [place] [id number] [facility] Care Teams Gear Straightener Relationship Specialty Start Date End Date Carrie Marshall MD [address] [place] [address] [address] [place] [id number] PCP - General Internal Medicine 12/25/19 Additional Source Comments The information contained in this document represents components of the legal health record. It is not the complete legal health record.[facility]
--- OUTSIDE RECORDS SUMMARY | 2025-05-20 13:20 | XMS_ITS | Clinical Summary ---
Author Organization [employer] [facility] Address [address] [facility] [address] [place] [address] Care Team Providers Care Kiln Remover Name Role Phone Unavailable Primary Care Provider [...] MCG/ACT aerosol powder 3 Active HYDROcodone-fabrice taminophen ([place]) 5-325 MG tablet TAKE ONE TABLET BY [...] Most Recently Relevant to Health Maintenance Insurance [facility] MEDICAID STAND ADULT
--- OUTSIDE RECORDS SUMMARY | 2025-05-20 13:20 | XMS_ITS | Clinical Summary ---
Author Organization [address] [facility] Address [address] [place] [address] Phone Care Team Providers Care Eligibility Clerk Name Role Phone Carrie Marshall MD Primary Care Provider [phone] Encounters Date Type Department Care Team Description 03/07/[address] [facility] [address] [place] [phone] Wilberto Prado MD Postmenopausal bleeding 03/07/[address] [facility] [address] [place] [phone] Wilberto Prado MD Postmenopausal bleeding from Last [...] identified 03/10/2025 10:36 AM EDT [facility] at 1036 EDT Comment I am unable to determine from this specimen the cause of the endometrial breakdown. 03/10/2025 10:36 AM EDT [facility]) [facility] Clinical Information PMB 03/10/2025 10:36 AM EDT [facility] Gross Description A. Endometrium, biopsy: [...] [facility] [address] [place] [address], * Pap smear (03/07/2025 12:00 AM EDT) Interpretation Negative for intraepithelial lesion or malignancy 03/19/2025 12:27 PM EDT [facility] at 1227 EDT General Categorization Negative 03/19/2025 12:27 PM [facility] Specimen Adequacy Satisfactory for [...] screening system. Technical cytopathology services provided by [facility], at [address] [place] [address], [place] [address] (CLIA # [id number]/Corinne Noriega MD, Semi Automatic Sewing Machine Operator.) 03/19/2025 12:27 PM T [facility] Console Pap Interpretation Reported 03/19/2025 12:27 PM [facility] Brushing/Spatula Cervix uteri structure / Unknown 03/07/2025 03/07/2025 2:17 PM EDT us Wilberto Prado MD LAB CYTOLOGY ORDERABLES Final Result [facility] [address] [place] [address], [place] [phone] from Last 3 Months Insurance [facility] [employer] Care Teams Eligibility Clerk Relationship Specialty Start Date End Date Carrie Marshall MD [address] [place] [address] Dr Barbi Lester [facility] [place] [address] PCP - General Internal Medicine 06/21/12
--- OUTSIDE RECORDS SUMMARY | 2025-05-20 13:20 | XMS_ITS | Encounter Summary ---
Author Organization [facility] Address [address] [place] [address] [address] [place] [address] Care Team Providers Care Medical Scientific Liaison Name Role Phone Unavailable Primary Care Provider Unavailabl e Reason for Visit * Reason Onset Date Comments Dr. Marques Medication clarification 02/04/2025 Encounter Details Date Type Department Care Team ([facility] st Contact Info) Description 02/04/2025 Telephone [facility] [address] [place] [address] Trent Marques DDS [address] [place] [address] Dr. Marques Medication clarification Social History Tobacco [...] both scripts. Please reach out to pharmacy [phone]. documented in this encounter Plan of Treatment Not on file documented as of this encounter Visit Diagnoses Not on filedocumented in this encounter
== END 2025-05-20 10:26 | disposition home or self-care (01) ==
LOC: HO.HMCH 10:06
PROVIDERS: PCP Internal Medicine; Visit Provider Internal Medicine
DX: Z23 Encounter for immunization (principal)

== ENCOUNTER → 2025-05-20 10:05 | Outpatient (BNVA) | payer OTHER, SELFPAY | PROVIDERS: PCP Internal Medicine; Visit Provider Internal Medicine | DX: Z23 Encounter for immunization (principal) | CPT/HCPCS: 90471; 90715 ==